=== PATIENT | female | born 1990 | race Caucasian/White ===

== ENCOUNTER 2025-06-13 10:08 | Outpatient (CLI) | payer OTHER, SELFPAY ==
[2025-06-13] VITALS (11 sets, daily range): BP systolic 107–132; BP diastolic 64–89; PULSE 89–128; RESP 16–17; TEMP 36.7–37.5; O2SAT 96–98; BMI 35.9
--- NOTE | 2025-06-13 10:20 | CT_ITS ---
PROCEDURE: CTA CHEST W/WO CONTRAST 06/13/2025 REASON FOR EXAM: ACUTE DYSPNEA, TACHYCARDIA, THIRD TRIMESTER PREGNA Patient is well shielded. TECHNIQUE: CTA CHEST W/WO CONTRAST Multiplanar Sagittal and Coronal images were obtained. 3D post processing was performed CONTRAST: Isovue 370 VOLUME: 100 mL One or more dose reduction techniques were used (e.g., Automated exposure control, adjustment of the mA and/or kV according to patient size, use of iterative reconstruction technique). RADIATION DOSE SUMMARY: CTDlvol: 22 mGy DLP: 436.13 mGycm COMPARISON: None FINDINGS: Hardware: None Lymph nodes: Small benign-appearing bilateral axillary lymph nodes. Heart: The heart is not enlarged. No coronary artery calcification is seen. Thoracic Aorta: No thoracic aortic aneurysm or dissection. Pulmonary Vessels: Tiny nonocclusive intraluminal filling defects seen in the proximal branch of the right interlobar artery as seen on coronal image number 156 and axial image number 97 Most Proximal Level of Embolus (if embolus present): Lungs and Airways: Lungs are clear. Pleura: No pleural effusion. Upper Abdomen: Diffuse fatty infiltration of the liver. Bones: Bone windows are unremarkable. CT/CTA Chest W/WO Contrast IMPRESSION: Single nonocclusive intraluminal filling defect is seen in the proximal branch of the right interlobar pulmonary artery as seen on axial image number 97 and coronal image number 156 Reading Location: [place] [id number]
--- NOTE | 2025-06-13 10:21 | EKG12_ITS ---
Test Reason : GENERAL Blood Pressure : */* mmHG Vent. Rate : 109 BPM Atrial Rate : 109 BPM P-R Int : 136 ms QRS Dur : 66 ms QT Int : 332 ms P-R-T Axes : 27 9 33 degrees QTcB Int : 447 ms Sinus tachycardia Otherwise normal ECG Confirmed by MORIAH COLLADO, SEBASTIAN ([id number]), web content editor ANGELA PEREZ ([id number]) on 06/16/2025 9:14:55 AM Referred By: Kerry Paniagua Confirmed By: SEBASTIAN MAJOR MD
[2025-06-13 10:40] LABS: Hematocrit 35.0 % (37-47); Hemoglobin 10.8 g/dL (12.0-15.0); Immature Granulocytes Count 0.050 X10^3/uL (0.0-0.0); Mean Corp Hgb Conc 30.9 g/dL (32-36); Mean Corpuscular Volume 76.9 fL (81-99); Mean Platelet Vol. 8.1 fl (6.2-12.0); NRBC Flagged by Analyzer 0 % (0-5); POSITIVE DIFFERENTIAL YES; POSITIVE MORPHOLOGY YES; Platelet Count 215 K/mm3 (150-450); RBC Distribution Width CV 28.7 % (11.6-14.6); RBC Distribution Width SD 73.7 fl (35.1-43.9); Red Blood Count 4.55 M/mm3 (4.2-5.4); White Blood Count 10.7 K/mm3 (4.4-11.0)
[2025-06-13 10:41] LABS: Differential Indicated SCAN CRITERIA MET
[2025-06-13 11:04] LABS: AST(SGOT) 13 U/L (<=31); Alanine Aminotransfer ALT/SGPT < 5 U/L (<=34); Albumin, Serum 3.5 g/dL (3.5-5.0); Alkaline Phosphatase 90 U/L (35-104); Anion Gap 14 (5-15); BUN 5 mg/dL (4-19); BUN/Creat Ratio 11.7 RATIO (10-20); Calcium,Total 9.3 mg/dL (7.6-11.0); Carbon Dioxide 18.3 mmol/L (21.0-32.0); Chloride 103 mmol/L (98-108); Estimated Creatinine Clearance 201.67 ml/min (50-250); Globulin 2.9 g/dL (2.2-4.2); Glucose 75 mg/dL (70-99); Potassium 3.6 mmol/L (3.3-5.1); Pro- Brain NATRIURETIC PEPTIDE < 36 pg/mL (<=450)
[2025-06-13 11:07] LABS: Troponin T High Sensitivity < 6 ng/L (<=14)
[2025-06-13 11:09] LABS: Anisocytosis 1+
--- NOTE | 2025-06-13 11:46 | CM.ED ---
Social work Reason for referral: no PCP Referral source: case find This SW identified patient's lack of PCP and need for resources. SW entered patient's room, introducing self and role at [facility]. Patient's , Mike, was bedside and patient gave permission to speak in front of guest. Patient confirmed lack of PCP, stating patient's previous 3 PCP's had all moved out of the area. This reportedly caused patient to become frustrated and patient has not obtained a new PCP as of this visit. Patient denied [place] resources, stating desire and intent to find a PCP in [place] where patient lives. Patient denied need for other resources at this time. Elke Elkins, TRADE SPECIALIST, NITRATE OPERATOR
--- NOTE | 2025-06-13 12:27 | ED.VIS.FEGU ---
HPI HPI - Female History of Present Illness Chief Complaint: Informant: patient and spouse/S.O. Pain Onset: Hours (2 hours prior to arrival abrupt onset of shortness of breath with chest discomfort.) Context: Sudden Onset Timing: Continuous Quality: Positive for - (Pleuritic) Location: - (Anterior chest) Current Severity: Mild Maximum Severity: Moderate Bleeding Issue: Negative for Vaginal bleeding, Passing clots or Passing tissue Associated Symptoms Associated Symptoms: Positive for Frequency; Negative for Dysuria, Urgency or Hematuria Test: Positive P: 1 Ab: 0 Narrative Narrative: Patient is a 35-year-old G2, P1 female who is 36 weeks gestation. She is followed through the [facility] department. She presents because abrupt onset shortness breath and chest pain that started 2 hours prior to arrival. I was asked see patient in triage. Patient is pale diaphoretic tachycardic. She is not hypotensive. She has no symptoms to suggest preeclampsia at this time. She denies headache, visual or auditory symptoms. Denies trouble speech or swallowing. She did have 1 episode of nausea and vomiting. She does have frequency otherwise negative review of systems. Patient had thrombectomy earlier this week by Dr. De Guzman for thrombosed hemorrhoid. Prior similar symptoms: No Recent Illness/Hospitalization: No PFSH PFS Medical History Polyhydramnios Constipation Anemia Hemorrhoids Home Medications ?Medication ?Instructions ?Recorded ?Last Taken ?Type famotidine 20 mg tablet 20 mg PO BID 06/09/25 Unknown History ferrous sulfate 325 mg (65 mg 325 mg PO Q OTHER DAY 06/09/25 Unknown History iron) tablet Allergy/AdvReac Type Severity Reaction Status Date / Time No Known Allergies Allergy Verified 06/13/25 10:12 Social History Smoking Status: Never smoker alcohol intake: never substance use type: does not use ROS ROS ED Constitutional Constitutional ED: Denies chills, fever(s), subjective or sweats Eyes Eyes: Denies blurry vision or change in vision ENT ENT ED: Denies ear pain or rhinorrhea Cardiovascular Cardiovascular: Reports chest pain and racing heartbeat; Denies orthopnea, palpitations or paroxysmal nocturnal dyspnea Respiratory/Chest Respiratory/Chest: Reports dyspnea; Denies cough, dyspnea on exertion, orthopnea or paroxysmal nocturnal dyspnea Gastrointestinal Gastrointestinal: Reports nausea and vomiting; Denies abdominal pain, diarrhea or melena Genitourinary Genitourinary ED: Denies dysuria, hematuria or urinary frequency Musculoskeletal Musculoskeletal: Denies arthralgias, myalgias or neck pain Integumentary Denies rash Neurologic Neurologic: Denies headache(s), paresthesias or weakness Psychiatric Psychiatric: Reports anxiety; Denies depression Hematologic/Lymphatic Hematologic/Lymphatic: Reports easy bleeding and easy bruising EXAM Physical Exam Const Vital Signs: 06/13/25 10:09 06/13/25 11:08 06/13/25 12:00 Temperature 98.0 F Temperature Source Oral Pulse Rate 128 H 102 H 89 Respiratory Rate 16 17 16 Blood Pressure 132/89 H 125/76 H Blood Pressure Mean 103 92 Pulse Ox 98 96 97 Oxygen Delivery Method Room Air Room Air Room Air Positive well nourished and well developed Constitutional Narrative: BMI is 36.0. Patient appears pale. She is anxious. She is tachycardic. Patient is slightly diaphoretic. I was asked to see patient in triage because of her vitals and concern for pulmonary embolus and if patient was to be seen in ED or L&D. General Appearance ED: well developed and pallor HEENT Reports moist mucous membranes HEENT Narrative: Head is atraumatic normocephalic. Ears normal. Nares patent Eyes PERRL and EOMs intact bilaterally General Eye ED: Negative for pale conjunctiva or scleral icterus Neck no lymphadenopathy, supple and no JVD Resp normal respiratory effort and clear to auscultation bilaterally Cardio regular rhythm, S1 normal heart sound, no murmurs and no JVD Rate: tachycardic GI GI Narrative: Fundal height is 2 cm inferior to the xiphoid process. There is no contractions. Extremity normal to inspection and full ROM General Extremety ED: Negative for edema General Extremity: Negative for edema Neuro oriented x3, CN's II-XII intact bilaterally and no sensory deficits noted Neuro Narrative: Patient has 2-3 beats of nonsustained clonus at the ankles. DTRs are 1-2+ and symmetric bicep, brachialis, patella and ankle. There is negative Babinski sign. Sensorium / Orientation: alert Motor Exam: strength 5/5 throughout Psych Mood & Affect: anxious Skin General Skin Exam: pallor MDM MDM MDM Narrative Medical decision making narrative: With abrupt onset of shortness of breath tachycardia third trimester need to evaluate for pulmonary embolus. Doubt pneumothorax. Doubt cardiac ischemia. Her symptoms are not consistent with preeclampsia since her blood pressure is slightly elevated. Will obtain CMP, CBC and CTA of the chest to evaluate for pulmonary embolus. Lab Data Attestation: I reviewed the patient's lab results. Lab results narrative: CBC is remarked for microcytic anemia. Comprehensive metabolic panel is unremarkable. Troponin is negative. BNP is normal. This was obtained to determine there was any evidence for of heart strain. Labs: Laboratory Results - last 24 hr 06/13/25 10:32 WBC 10.7 RBC 4.55 Hgb 10.8 L Hct 35.0 L MCV 76.9 L MCH 23.7 L MCHC 30.9 L RDW Std Deviation 73.7 H RDW Coeff of Shannon 28.7 H Plt Count 215 MPV 8.1 Immature Gran % (Auto) 0.500 Neut % (Auto) 92.0 H Lymph % (Auto) 5.1 L Eaton % (Auto) 2.1 Eos % (Auto) 0.1 Baso % (Auto) 0.2 Absolute Neuts (auto) 9.9 H Absolute Lymphs (auto) 0.55 L Nucleated RBC % 0 Differential Comment COMMENT Anisocytosis 1+ Sodium 136 Potassium 3.6 Chloride 103 Carbon Dioxide 18.3 L Anion Gap 14 BUN 5 Creatinine 0.46 L Estim Creat Clear Calc 201.67 Est GFR (MDRD) Non-Af 129 BUN/Creatinine Ratio 11.7 Glucose 75 Lactic Acid 1.4 Calcium 9.3 Total Bilirubin 0.43 AST 13 ALT < 5 Alkaline Phosphatase 90 Troponin T High Sens < 6 NT pro BNP II < 36 Total Protein 6.4 Albumin 3.5 Globulin 2.9 Albumin/Globulin Ratio 1.2 Radiography Diagnostic Testing: Clinical Impression(s) from Imaging Studies Chest CTA 06/13/25 10:20 IMPRESSION: Single nonocclusive intraluminal filling defect is seen in the proximal branch of the right interlobar pulmonary artery as seen on axial image number 97 and coronal image number 156 Reading Location: [facility]- After reviewing patient's CT results. The hat and cap opener was contacted, Dr. Kerry Paniagua. She requested admission to labor and delivery. I informed her that I ordered heparin however which she prefer Lovenox. She preferred Lovenox. This was discontinued and 1 mg/kg Lovenox was ordered. She will be admitted to labor and delivery. EKG Initial EKG: Attestation: I personally reviewed and interpreted this EKG as follows: Interpretation: Sinus Tachycardia (Sinus tachycardia rate of 109 otherwise normal. MI interval is under 36 ms QRS duration 6 6 ms. QT duration 2032 ms. [place] is normal.) Management Discussion w/another healthcare provider: Utilization Coordinator (Spoke with Dr. Kerry Paniagua on-call for [facility]. Patient to be admitted to labor and delivery.) Treatment and Re-Evaluation Narrative: Patient and were informed of results. They were informed that she will be admitted to labor and delivery for observation and treated with Lovenox. Discharge Plan Triage Chief Complaint: ED Provider: Gonzalez Barreto Dx/Rx/DC Orders Clinical Impression: Pulmonary embolus, Sinus tachycardia seen on court monitor, Third trimester , Microcytic anemia, S/P hemorrhoidectomy Prescriptions: No Action ferrous sulfate 325 mg (65 mg iron) tablet 325 mg PO Q OTHER DAY famotidine 20 mg tablet 20 mg PO BID Primary Care Provider: Care Physician,No Primary Referrals: Care Physician,No Primary [Primary Care Provider] - Print Language: Bulgarian Disposition Disposition: Acute Care Hospital [facility]
[2025-06-13 12:49] LABS: Prothrombin Time (Protime)PT. 14.0 SECONDS (11.7-14.9)
[2025-06-13 12:50] LABS: Partial Thromboplast Time 24.7 Seconds (24.1-36.2)
--- NOTE | 2025-06-13 12:51 | ED.RN ---
Report given to Kenneth LINTON in [facility].
[2025-06-13 13:15] LABS: Troponin T High Sens 2 HR < 6 ng/L (<=14)
[2025-06-13 14:24] LABS: Creatinine, Urine (random) 33.70 mg/dL (28.00-217.00); Protein, Urine (Random) 13.2 mg/dL (0.0-12.0); Protein:Creat Ratio 392 mg/g CRE (0-200)
--- NOTE | 2025-06-15 17:18 | OB.TRI.HP_ITS ---
HPI - General General Date of Admission: 06/13/25 Date of Service: 06/13/25 Chief Complaint: Acute PE HPI Narrative FEDERICA FIGUEROA, is a 35 F who presents to ED with Chest pain, Headache. Diagnosed with an acute PE and started on Lovenox. Sent to for monitoring. PRE E labs negative except for pr/cr of 390. Normal BPS. Pt sent home with 24 hour urine collection. Planned IOL at 39 for poly. Maternal Data Information Final CAROLYN: 07/07/25 Gestational age: 36+4 PFSH PFSH Medical History Polyhydramnios Constipation Anemia Hemorrhoids Home Medications ?Medication ?Instructions ?Recorded ?Last Taken ?Type famotidine 20 mg tablet 20 mg PO BID GERD 06/09/25 U nknown History albuterol 90 mcg/actuation aerosol 90 mcg inhalation P RN asthma 06/13/25 06/13/25 History inhaler Allergy/AdvReac Type Severity Reaction Status Date / Time No Known Allergies Allergy Verified 06/13/25 14:08 Social History Smoking Status: Never smoker alcohol intake: never substance use type: does not use History 2 Elective abortions Hx Para 1 Spontaneous abortions Hx # Term Pregnancies Ectopic pregnancies Hx # Pregnancies Multiple births # of living children NST FHR Rate Baby A Baseline: 125 Variability:: Moderate Accelerations:: 15 x 15 Decelerations:: None NST Reactive:: Yes Assessment & Plan (1) Pulmonary embolus: QUALIFIERS: Chronicity: acute Acute cor pulmonale presence: without acute cor pulmonale Pulmonary embolism type: other Qualified Code(s): I26.99 - Other pulmonary embolism without acute cor pulmonale (2) 36 weeks gestation of : (3) Proteinuria affecting in third trimester: PLAN: Plan Bringing 24 hour urine to office. Rx of Lovenox sent to pharmacy. Has appointment in office on 06/17/25
== END 2025-06-13 15:20 | disposition home or self-care (01) ==
LOC: ED 10:49 → WP 12:35 → WPOUT 13:20 → WP 13:20
PROVIDERS: Emergency Provider Emergency Medicine; Referring Provider Obstetrics & Gynecology; Visit Provider Obstetrics & Gynecology
DX: O88.213 Thromboembolism in pregnancy, third trimester (principal); I26.99 Other pulmonary embolism without acute cor pulmonale; O99.013 Anemia complicating pregnancy, third trimester; D50.9 Iron deficiency anemia, unspecified; O99.891 Other specified diseases and conditions complicating pregnancy; R00.0 Tachycardia, unspecified; O12.13 Gestational proteinuria, third trimester; Z3A.36 36 weeks gestation of pregnancy
CPT/HCPCS: 96372; 59025; 59050; 71275; 80053; 82570; 83605; 83880; 84156; 84484; 85025; 85610; 85730; 93005; 99221; 99285; Q9967; A4216; G0378

== ENCOUNTER → 2025-06-16 | Outpatient (CLI) | payer OTHER, SELFPAY | END | disposition home or self-care (01) | LOC: LABSPEC 09:21 | PROVIDERS: Referring Provider Obstetrics & Gynecology; Visit Provider Obstetrics & Gynecology | DX: O12.13 Gestational proteinuria, third trimester (principal); Z3A.00 Weeks of gestation of pregnancy not specified ==

== ENCOUNTER 2025-07-01 07:28 | Inpatient (IN) | payer OTHER, SELFPAY ==
[2025-06-13 13:50] VITALS: RESP 16; TEMP 37.5
[2025-07-01] VITALS (54 sets, daily range): BP systolic 114–151; BP diastolic 55–95; PULSE 67–113; RESP 16–20; TEMP 36.2–36.7; O2SAT 91–100; BMI 36.9
[2025-07-01] MEDS: Lactated Ringers 1,000 ML 50 ML IV (08:00)
[2025-07-01 08:22] LABS: Hematocrit 36.2 % (37-47); Hemoglobin 11.3 g/dL (12.0-15.0); Immature Granulocytes Count 0.090 X10^3/uL (0.0-0.0); Mean Corp Hgb Conc 31.2 g/dL (32-36); Mean Corpuscular Volume 79.0 fL (81-99); Mean Platelet Vol. 8.3 fl (6.2-12.0); NRBC Flagged by Analyzer 0 % (0-5); POSITIVE MORPHOLOGY YES; Platelet Count 261 K/mm3 (150-450); RBC Distribution Width CV 25.2 % (11.6-14.6); RBC Distribution Width SD 70.1 fl (35.1-43.9); Red Blood Count 4.58 M/mm3 (4.2-5.4); White Blood Count 9.7 K/mm3 (4.4-11.0)
[2025-07-01 08:23] LABS: Differential Indicated SCAN CRITERIA MET
[2025-07-01] MEDS: Oxytocin 15 Units/NS 250ml 15 UNITS/250 ML IV.SOLN 2 UNITS IV (08:28)
[2025-07-01] MEDS: Penicillin G Pot 5,000,000 UNITS in 0.9% Normal Saline (100mL MB+) 100 ML 150 UNITS IV (09:08)
[2025-07-01 09:14] LABS: Anisocytosis 2+
[2025-07-01 09:23] LABS: Syphilis Antibodies Nonreactive (Nonreactive)
[2025-07-01] MEDS: 0.9% Normal Saline Single 100 ML IV.SOLN. INTRA-UTER (10:26)
[2025-07-01] MEDS: Penicillin G 3,000,000 Units 50 ML 100 UNITS IV ×3 (13:09→21:11)
[2025-07-01] MEDS: Lactated Ringers 1,000 ML 999 ML IV (13:39)
[2025-07-01] MEDS: fentaNYL-bupivacaine (epidural) 100 ML BAG EPIDURAL ×2 (14:18→18:59)
[2025-07-01] MEDS: LACTATED RINGERS 500 ML 999 ML IV ×2 (16:47→21:57)
[2025-07-01] MEDS: Lactated Ringers 1,000 ML 200 ML IV (17:15)
--- NOTE | 2025-07-01 18:59 | HP.PCM.OB_ITS ---
HPI - General General Date of Admission: 07/01/25 Date of Service: 07/01/25 Chief Complaint: induction HPI Narrative FEDERICA FIGUEROA, is a 35 F who presents 2 para 1 for induction of labor due to large for gestational age fetus. She denies any gross vaginal bleeding or leaking of fluid upon admission she has had some irregular contractions. Her has been complicated to date by LGA fetus, maternal obesity, anemia, polyhydramnios. She was dx w/ a PE on 06/13/25 and is on lovenox for this. She held her dose last night in anticipation of induction. Maternal Data Information Final CAROLYN: 07/07/25 Gestational age: 39 1/7 [facility] Medical History (Updated 07/01/25 @ 19:[address] Keyla Ravi MD) Pulmonary embolism affecting in third trimester Infertility Asthma Depression Anxiety Headache Polyhydramnios Constipation Anemia Hemorrhoids Home Medications ?Medication ?Instructions ?Recorded ?Last Taken ?Type famotidine 20 mg tablet 20 mg PO BID GERD 06/09/25 0 06/30/25 22:30 History enoxaparin 100 mg subcut BID PE 5 06/29/25 00:00 History Allergy/AdvReac Type Severity Reaction Status Date / Time No Known Allergies Allergy Verified 07/01/25 07:47 Social History Smoking Status: Never smoker alcohol intake: never substance use type: does not use History 2 Elective abortions Hx Para 1 Spontaneous abortions Hx # Term Pregnancies Ectopic pregnancies Hx # Pregnancies Multiple births # of living children ROS Constitutional Constitutional: Denies fatigue, fever(s) or malaise Eyes Eyes: Denies change in vision ENT HEENT: Denies dizziness or headache(s) Cardiovascular Cardiovascular: Denies chest pain, dyspnea or lightheadedness Respiratory/Chest Respiratory/Chest: Denies cough or dyspnea Gastrointestinal Gastrointestinal: Denies change in bowel habits Genitourinary Genitourinary: Denies burning urination or genital lesions Integumentary Integumentary: Denies rash Neurologic Neurologic: Denies confusion, dizziness, headache(s), numbness or weakness Vital Signs Vital Signs Vital Signs: 07/01/25 07:41 07/01/25 07:41 07/01/25 07:42 Temperature Temperature Source Pulse Rate 113 H Respiratory Rate Blood Pressure 117/76 BP Systolic 117 BP Diastolic 76 Pulse Ox 95 07/01/25 07:42 07/01/25 07:42 07/01/25 07:42 Temperature Temperature Source Temporal Pulse Rate 103 H Respiratory Rate 16 Blood Pressure BP Systolic BP Diastolic Pulse Ox 07/01/25 07:42 07/01/25 07:42 07/01/25 09:46 Temperature 97.4 F L Temperature Source Pulse Rate Respiratory Rate Blood Pressure 131/87 H BP Systolic 131 BP Diastolic 87 Pulse Ox 95 07/01/25 09:46 07/01/25 09:46 07/01/25 09:47 Temperature Temperature Source Temporal Pulse Rate 72 Respiratory Rate Blood Pressure BP Systolic BP Diastolic Pulse Ox 96 07/01/25 09:47 07/01/25 09:47 07/01/25 09:47 Temperature 97.2 F L Temperature Source Pulse Rate Respiratory Rate 16 Blood Pressure BP Systolic BP Diastolic Pulse Ox 96 07/01/25 10:47 07/01/25 10:47 07/01/25 10:47 Temperature Temperature Source Pulse Rate 71 Respiratory Rate Blood Pressure 128/81 H BP Systolic 128 BP Diastolic 81 Pulse Ox 93 07/01/25 10:48 07/01/25 10:48 07/01/25 10:48 Temperature Temperature Source Temporal Pulse Rate Respiratory Rate 18 Blood Pressure BP Systolic BP Diastolic Pulse Ox 95 07/01/25 10:48 07/01/25 11:53 07/01/25 11:53 Temperature 97.3 F L Temperature Source Pulse Rate 77 Respiratory Rate Blood Pressure 142/86 H BP Systolic 142 BP Diastolic 86 Pulse Ox 07/01/25 11:53 07/01/25 11:53 07/01/25 11:53 Temperature Temperature Source Temporal Pulse Rate Respiratory Rate 16 Blood Pressure BP Systolic BP Diastolic Pulse Ox 96 07/01/25 11:53 07/01/25 14:03 07/01/25 14:03 Temperature 97.1 F L Temperature Source Pulse Rate 94 Respiratory Rate Blood Pressure BP Systolic BP Diastolic Pulse Ox 97 07/01/25 14:04 07/01/25 14:04 07/01/25 14:05 Temperature Temperature Source Pulse Rate 87 Respiratory Rate Blood Pressure 135/95 H BP Systolic 135 BP Diastolic 95 Pulse Ox 91 07/01/25 14:05 07/01/25 14:05 07/01/25 14:08 Temperature Temperature Source Pulse Rate 77 99 Respiratory Rate 18 Blood Pressure BP Systolic BP Diastolic Pulse Ox 07/01/25 14:08 07/01/25 14:10 07/01/25 14:11 Temperature Temperature Source Pulse Rate Respiratory Rate 20 H Blood Pressure 151/70 H BP Systolic 151 BP Diastolic 70 Pulse Ox 100 07/01/25 14:11 07/01/25 14:13 07/01/25 14:13 Temperature Temperature Source Pulse Rate 70 68 Respiratory Rate Blood Pressure BP Systolic BP Diastolic Pulse Ox 100 07/01/25 14:15 07/01/25 14:15 07/01/25 14:15 Temperature Temperature Source Pulse Rate 86 Respiratory Rate 18 Blood Pressure 141/63 H BP Systolic 141 BP Diastolic 63 Pulse Ox 07/01/25 14:18 07/01/25 14:18 07/01/25 14:18 Temperature Temperature Source Pulse Rate 98 85 Respiratory Rate Blood Pressure BP Systolic BP Diastolic Pulse Ox 94 07/01/25 14:18 07/01/25 14:20 07/01/25 14:20 Temperature Temperature Source Pulse Rate 96 Respiratory Rate Blood Pressure 144/90 H BP Systolic 144 BP Diastolic 90 Pulse Ox 91 07/01/25 14:20 07/01/25 14:23 07/01/25 14:23 Temperature Temperature Source Pulse Rate 104 H Respiratory Rate 18 Blood Pressure BP Systolic BP Diastolic Pulse Ox 95 07/01/25 14:24 07/01/25 14:24 07/01/25 14:25 Temperature Temperature Source Pulse Rate 101 H Respiratory Rate Blood Pressure 122/61 H BP Systolic 122 BP Diastolic 61 Pulse Ox 94 07/01/25 14:25 07/01/25 14:25 07/01/25 14:28 Temperature Temperature Source Pulse Rate 91 93 Respiratory Rate 16 Blood Pressure BP Systolic BP Diastolic Pulse Ox 07/01/25 14:28 07/01/25 14:28 07/01/25 14:28 Temperature Temperature Source Pulse Rate Respiratory Rate 18 Blood Pressure BP Systolic BP Diastolic Pulse Ox 95 95 07/01/25 14:28 07/01/25 14:30 07/01/25 14:30 Temperature 97.5 F L Temperature Source Pulse Rate 90 Respiratory Rate Blood Pressure BP Systolic BP Diastolic Pulse Ox 94 07/01/25 14:31 07/01/25 14:31 07/01/25 14:31 Temperature Temperature Source Pulse Rate 89 Respiratory Rate 16 Blood Pressure 118/58 L BP Systolic 118 BP Diastolic 58 Pulse Ox 07/01/25 14:33 07/01/25 14:33 07/01/25 14:36 Temperature Temperature Source Pulse Rate 84 Respiratory Rate Blood Pressure 114/66 BP Systolic 114 BP Diastolic 66 Pulse Ox 94 07/01/25 14:36 07/01/25 14:36 07/01/25 14:38 Temperature Temperature Source Pulse Rate 85 81 Respiratory Rate 16 Blood Pressure BP Systolic BP Diastolic Pulse Ox 07/01/25 14:38 07/01/25 14:39 07/01/25 14:39 Temperature Temperature Source Pulse Rate 82 Respiratory Rate Blood Pressure BP Systolic BP Diastolic Pulse Ox 94 94 07/01/25 14:40 07/01/25 14:41 07/01/25 14:41 Temperature Temperature Source Pulse Rate 84 Respiratory Rate 16 Blood Pressure 122/73 H BP Systolic 122 BP Diastolic 73 Pulse Ox 07/01/25 14:51 07/01/25 14:51 07/01/25 14:56 Temperature Temperature Source Pulse Rate 86 81 Respiratory Rate Blood Pressure BP Systolic BP Diastolic Pulse Ox 95 07/01/25 14:56 07/01/25 14:59 07/01/25 14:59 Temperature Temperature Source Pulse Rate 85 Respiratory Rate Blood Pressure BP Systolic BP Diastolic Pulse Ox 96 93 07/01/25 15:01 07/01/25 15:01 07/01/25 15:04 Temperature Temperature Source Pulse Rate 83 80 Respiratory Rate Blood Pressure BP Systolic BP Diastolic Pulse Ox 96 07/01/25 15:04 07/01/25 15:06 07/01/25 15:06 Temperature Temperature Source Pulse Rate 83 Respiratory Rate Blood Pressure BP Systolic BP Diastolic Pulse Ox 94 94 07/01/25 15:10 07/01/25 15:10 07/01/25 15:11 Temperature Temperature Source Pulse Rate 78 75 Respiratory Rate Blood Pressure BP Systolic BP Diastolic Pulse Ox 94 07/01/25 15:11 07/01/25 15:21 07/01/25 15:21 Temperature Temperature Source Temporal Pulse Rate 78 Respiratory Rate Blood Pressure BP Systolic BP Diastolic Pulse Ox 94 07/01/25 15:21 07/01/25 15:21 07/01/25 15:21 Temperature 97.5 F L Temperature Source Pulse Rate Respiratory Rate 18 Blood Pressure BP Systolic BP Diastolic Pulse Ox 97 07/01/25 15:22 07/01/25 15:22 07/01/25 15:26 Temperature Temperature Source Pulse Rate 75 69 Respiratory Rate Blood Pressure 122/68 H BP Systolic 122 BP Diastolic 68 Pulse Ox 07/01/25 15:26 07/01/25 15:31 07/01/25 15:31 Temperature Temperature Source Pulse Rate 84 Respiratory Rate Blood Pressure 128/68 H BP Systolic 128 BP Diastolic 68 Pulse Ox 99 07/01/25 15:31 07/01/25 15:36 07/01/25 15:36 Temperature Temperature Source Pulse Rate 77 Respiratory Rate Blood Pressure BP Systolic BP Diastolic Pulse Ox 98 96 07/01/25 15:41 07/01/25 15:41 07/01/25 15:46 Temperature Temperature Source Pulse Rate 82 76 Respiratory Rate Blood Pressure BP Systolic BP Diastolic Pulse Ox 97 07/01/25 15:46 07/01/25 15:51 07/01/25 15:51 Temperature Temperature Source Pulse Rate 67 Respiratory Rate Blood Pressure BP Systolic BP Diastolic Pulse Ox 96 95 07/01/25 17:08 07/01/25 17:08 07/01/25 17:08 Temperature Temperature Source Temporal Pulse Rate 84 Respiratory Rate Blood Pressure 114/58 L BP Systolic 114 BP Diastolic 58 Pulse Ox 07/01/25 17:08 07/01/25 17:08 07/01/25 17:08 Temperature 97.3 F L Temperature Source Pulse Rate Respiratory Rate 16 Blood Pressure BP Systolic BP Diastolic Pulse Ox 99 Weight Weight: 91.626 kg Body Mass Index (BMI) 36.9 Physical Exam Const alert and no apparent distress General Appearance: cooperative HEENT normocephalic Resp normal respiratory effort Cardio regular rate GI soft to palpation GI Narrative: gravid, nontender, appropriate for gestational age Extremity no calf tenderness General Extremity: edema Skin no wounds Rashes: No rashes noted Psych activity/motor behavior normal Labs Labs Labs: Blood Type B POSITIVE Antibody Screen NEGATIVE Hct 36.2 % (37-47) L Hgb 11.3 g/dL (12.0-15.0) L Syphilis Total Ab Nonreactive (Nonreactive) Assessment & Plan (1) 39 weeks gestation of : (2) Supervision of high risk in third trimester: COMMENT: Risk-benefit and alternatives to induction of labor discussed with patient her questions were answered to her satisfaction consent was signed and she desires to proceed. Will proceed with [place] with Pitocin and artificial rupture membranes as needed. May have routine pain control measures as needed. Estimated weight is approximately 4000 g. Pelvis clinically adequate to expect vaginal delivery. (3) LGA (large for gestational age) fetus affecting management of mother: QUALIFIERS: Fetus number: single or unspecified fetus Trimester: third trimester Qualified Code(s): O36.63X0 - Maternal care for excessive growth, third trimester, not applicable or unspecified (4) Polyhydramnios affecting in third trimester: (5) Maternal obesity affecting , antepartum: (6) Obesity, Class II, BMI 35-39.9, isolated: (7) Pulmonary embolus: QUALIFIERS: Pulmonary embolism type: other Chronicity: acute Acute cor pulmonale presence: without acute cor pulmonale Qualified Code(s): I26.99 - Other pulmonary embolism without acute cor pulmonale COMMENT: restart treatment after delivery. SAM briones on (8) Third trimester : (9) Anemia: COMMENT: has been on fe
--- NOTE | 2025-07-01 22:50 | EX.PCM.OBVAG ---
Assessment & Plan (1) Obesity, Class II, BMI 35-39.9, isolated: (2) (spontaneous vaginal delivery): (3) Single live : (4) Maternal obesity affecting , antepartum: (5) Supervision of high risk in third trimester: COMMENT: Risk-benefit and alternatives to induction of labor discussed with patient her questions were answered to her satisfaction consent was signed and she desires to proceed. Will proceed with [place] with Pitocin and artificial rupture membranes as needed. May have routine pain control measures as needed. Estimated weight is approximately 4000 g. Pelvis clinically adequate to expect vaginal delivery. (6) 39 weeks gestation of : Maternal Data Information Final CAROLYN: 07/07/25 Gestational age: 39 1/7 Vaginal Delivery Maternal Presentation Maternal Presentation: Medically Indicated Induction Type of Induction: Pitocin, [place] Bulb and Amniotomy Vaginal Delivery Information Procedure Performed: Spontaneous Vaginal Delivery Surgeon/Practitioner: Keyla Ravi Date of Procedure: 07/01/25 Pre-Procedure Diagnosis: labor Post-Procedure Diagnosis: same Type of anesthesia: Epidural Special Medications: none Estimated Blood Loss: 300 Time of Delivery: 22:28 Findings Description of procedure: A vigorous female infant was delivered THEA over a second-degree perineal laceration. A tight nuchal cord x 3 was reduced. The remainder the infant was delivered with maternal pushing and gentle traction only in less than 15 seconds. The Pitocin infusion was initiated for active management of the third stage. The cord was clamped and cut after approximately 15 seconds so the infant could be handed off to the warmer for evaluation. The infant was attended to by the waiting nursing staff. The placenta was delivered spontaneously and intact. The cervix and vagina were intact. The second-degree perineal laceration was repaired with 3-0 Vicryl suture in a running standard fashion. Sponge and needle counts were correct. A vaginal sweep was completed by me. Procedure findings: Vigorous female infant Presentation: THEA Amniotic Membrane Rupture Type: Artificial Amniotic Fluid Description: Clear Placental Delivery Description: Spontaneous Placenta Disposition: [facility] Specimen collected: Yes Description of specimen(s) removed: Placenta Cord Vessel Description: 3 Vessels Cord Entanglement: Other (around neck x 3 tight) Nuchal Cord Compression: With compression Cord Gases: ABG and VBG A Gender: Female (Dali) (1 minute): 8 (5 minute): 9 Delayed Cord Clamping: No Marketing Communications Coordinator directory operator: No Post Vaginal Deli Medications given after delivery: IV Pitocin Episiotomy Description: None Laceration: None Complication Complications: No
[2025-07-01] MEDS: Oxytocin 15 Units/NS 250ml 15 UNITS/250 ML IV.SOLN 83 UNITS IV (23:10)
[2025-07-02] VITALS (12 sets, daily range): BP systolic 114–144; BP diastolic 59–84; PULSE 75–102; RESP 16; TEMP 36.4–36.8; O2SAT 93–99
--- NOTE | 2025-07-02 03:59 | NURSING ---
epidural catheter taken out at 0340, blue tip intact
[2025-07-02 05:42] LABS: Hematocrit 31.9 % (37-47); Hemoglobin 10.2 g/dL (12.0-15.0); Immature Granulocytes Count 0.140 X10^3/uL (0.0-0.0); Mean Corp Hgb Conc 32.0 g/dL (32-36); Mean Corpuscular Volume 78.8 fL (81-99); Mean Platelet Vol. 8.5 fl (6.2-12.0); NRBC Flagged by Analyzer 0 % (0-5); POSITIVE MORPHOLOGY YES; Platelet Count 230 K/mm3 (150-450); RBC Distribution Width CV 25.0 % (11.6-14.6); RBC Distribution Width SD 69.0 fl (35.1-43.9); Red Blood Count 4.05 M/mm3 (4.2-5.4); White Blood Count 17.0 K/mm3 (4.4-11.0)
[2025-07-02 05:52] LABS: Differential Indicated SCAN CRITERIA MET
[2025-07-02 06:29] LABS: Anisocytosis 1+; Polychromasia RARE
[2025-07-02 06:30] LABS: Differential Comment SCANNED
[2025-07-02 08:16] LABS: Pathology Specimen OB SEE PATHOLOGY REPORT
--- NOTE | 2025-07-02 08:16 | PCM.PROGNOTE ---
Subjective Subjective patient seen at bedside, doing well. Patient reports good pain control. lochia mild. Objective Data Objective Data Vital Signs: Vital Signs Temp Pulse Resp BP Pulse Ox O2 Del Method 97.6 F L 83 16 115/63 99 Room Air 07/02/25 08:15 07/02/25 08:15 07/02/25 08:15 07/02/25 08:15 07/02/25 03:47 07/02/25 03:47 Oxygen Delivery Method Room Air Weight: 91.626 kg Body Mass Index (BMI) 36.9 Intake & Output: Intake and Output for Last 24 Hours 06/30/25 07/01/25 07/02/25 23:59 23:59 23:59 Intake Total 4146.16 / 4146.16 250 / 250 Output Total 1575 / 1575 600 / 600 Balance 2571.16 / 2571.16 -350 / -350 Lab / Micro Data 07/02/25 05:35 Labs: Laboratory Results - last 24 hr 07/01/25 08:00: WBC 9.7, RBC 4.58, Hgb 11.3 L, Hct 36.2 L, MCV 79.0 L, MCH 24.7 L, MCHC 31.2 L, RDW Std Deviation 70.1 H, RDW Coeff of [place] 25.2 H, Plt Count 261, MPV 8.3, Immature Gran % (Auto) 0.900, Neut % (Auto) 75.5 H, Lymph % (Auto) 16.8 L, [place] % (Auto) 5.5, Eos % (Auto) 1.0, Baso % (Auto) 0.3, Absolute Neuts (auto) 7.3, Absolute Lymphs (auto) 1.62, Nucleated RBC % 0, Anisocytosis 2+, Syphilis Total Ab Nonreactive, Blood Type B POSITIVE, Antibody Screen NEGATIVE 07/02/25 05:35: WBC 17.0 H, RBC 4.05 L, Hgb 10.2 L, Hct 31.9 L, MCV 78.8 L, MCH 25.2 L, MCHC 32.0, RDW Std Deviation 69.0 H, RDW Coeff of [place] 25.0 H, Plt Count 230, MPV 8.5, Immature Gran % (Auto) 0.800, Neut % (Auto) 84.5 H, Lymph % (Auto) 9.0 L, [place] % (Auto) 5.2, Eos % (Auto) 0.3, Baso % (Auto) 0.2, Absolute Neuts (auto) 14.4 H, Absolute Lymphs (auto) 1.54, Nucleated RBC % 0, Differential Comment SCANNED, Polychromasia RARE, Anisocytosis 1+, Ovalocytes RARE Physical Exam Narrative Abd: fundus firm. Const alert and oriented x3 General Appearance: cooperative HEENT normocephalic Neck General: normal visual inspection GI soft to palpation and non-distended GI Narrative: Fundus firm Extremity normal to inspection and no calf tenderness Skin no rashes or lesions noted Neuro oriented x3 and CN's II-XII intact bilaterally Psych mental status grossly normal Assessment & Plan Assessment/Plan (1) Single live : (2) (spontaneous vaginal delivery): (3) Obesity, Class II, BMI 35-39.9, isolated: (4) Pulmonary embolus: QUALIFIERS: Pulmonary embolism type: other Chronicity: acute Acute cor pulmonale presence: without acute cor pulmonale Qualified Code(s): I26.99 - Other pulmonary embolism without acute cor pulmonale (5) Anemia: PLAN: Plan PPD# 1 , Doing well Routine care pain mgmt ambulation Lovenox to restart
[2025-07-02 08:18] LABS: Pathology Sent to OSU SEE PATHOLOGY REPORT
[2025-07-03 02:12] VITALS: BP 123/58; PULSE 82; RESP 14; TEMP 36.4; O2SAT 95
[2025-07-03 08:15] VITALS: BP 120/75; PULSE 71; RESP 16; TEMP 36.2; O2SAT 95
--- NOTE | 2025-07-03 09:06 | PCM.DC.SUM ---
Providers Date of Admission: 07/01/25 Primary Care Physician: No Primary Care Phys Reason For Visit: VAG Diagnosis Discharge Diagnosis (1) Single live : Status: Acute Code(s): Z37.0 - Single live (2) (spontaneous vaginal delivery): Status: Acute Code(s): O80 - Encounter for full-term uncomplicated delivery (3) Obesity, Class II, BMI 35-39.9, isolated: Status: Acute Code(s): E66.812 - Obesity, class 2 (4) Pulmonary embolus: Status: Acute Code(s): I26.99 - Other pulmonary embolism without acute cor pulmonale Qualifiers: Pulmonary embolism type: other Chronicity: acute Acute cor pulmonale presence: without acute cor pulmonale Qualified Code(s): I26.99 - Other pulmonary embolism without acute cor pulmonale (5) Anemia: Status: Acute Code(s): D64.9 - Anemia, unspecified Plan PPD 2 support Continue Lovenox 100 mg SQ D/C home with follow up in office next week Medications at Discharge Home Medications famotidine 20 mg tablet 20 mg PO BID GERD 06/09/25 enoxaparin 100 mg subcut BID PE 07/01/25 acetaminophen 500 mg tablet 1,000 mg (2 x 500 mg) PO Q6H PRN PRN Pain 1-10 Or Fever #0 tabs 07/03/25 Hospital Course Operations None Procedures None Summary of Care Provided Minutes Spent on Discharge: 15 Hospital Course: Patient had vaginal delivery. Hospital course was uneventful. Physical Exam Narrative Patient seen at bedside. Denies pain. Ambulating and voiding without difficulty. Lochia decreased. Desires discharge home today. Const alert and oriented x3 General Appearance: Negative for in distress HEENT normocephalic Eyes General Eye: normal appearance of both eyes Neck General: normal visual inspection Chest Chest: symmetrical chest wall rise Resp normal respiratory effort and normal air movement Effort and Inspection: symmetric chest movement; Negative for tachypneic Auscultation: clear to auscultation bilaterally Cardio regular rate and regular rhythm Peripheral Pulses: pulses 2+ throughout GI normal to inspection, nondistended, normoactive bowel sounds Narrative: Ice to perineum OB / External & Speculum: vaginal bleeding and other Lochia decreasing Uterus Palpation: uterus fundus firm (Below U) Extremity normal to inspection, full ROM and normal capillary refill Skin no rashes or lesions noted Neuro oriented x3, CN's II-XII intact bilaterally and gait normal Psych mental status grossly normal, thought process normal and activity/motor behavior normal Weight / BMI Weight Weight: 202 lb Body Mass Index (BMI) 36.9 ABG / Lab / Microbiology Data 07/02/25 05:35 D/C Instructions Discharge Activity: Return to Normal Activity, No Restrictions, May Drive, May Shower and May Take a Tub Bath (Warm water only. No bath salts, soaps, bubbles) May resume sexual activity in: 6-8 weeks Weight Bearing Status: Weight bearing as tolerated Call your doctor if you observe: Fever of 101 or Higher, Inability to urinate, Using more than 1 pad per hour, Shortness of breath, Dizziness, Chest pain, Calf discomfort and Uncontrolled pain DC O2, CPAP, BIPAP Needs Home O2 Discharge instructions: No Please Follow Up With: [facility] Karime GALLARDO When: 2 weeks in office or virtual Meaningful Use Info Meaningful Use Meaningful Use Diagnoses (Choose all that apply): None applicable Discharge Plan Admission Admit Date/Time: 07/01/25 07:28 Primary Reason for Your Visit: Labor and Delivery Attending Provider: Keyla Ravi Primary Care Provider: Care PhysicianRebeca Primary Discharge Orders/Prescriptions Prescriptions: New acetaminophen 500 mg Tablet 1,000 mg PO Q6H PRN PRN (Reason: Pain 1-10 Or Fever) Qty: 0 0RF Continued famotidine 20 mg tablet 20 mg PO BID enoxaparin [Lovenox] 100 mg subcut BID Referrals / Follow Up: Care Physician,Rebeca Primary [Primary Care Provider] - Disposition Disposition (needs filled in before D/C Order can be placed): Home, Self Care
--- NOTE | 2025-07-07 11:45 | CASEMGMT ---
Social Work Assessment Labor and Delivery Unit Patient Address: [address] [place] [address] [place] [address] Phone number: [phone] Date of Referral: 07/02/25 Time of Referral:? 0900 Referred By: Dr. aRvi Date of Intervention: ??07/02/25 Time of Intervention:? 1020 Reason for Referral:? anxiety, depression Sw completed chart review and acknowledge social work consult due to maternal mental health history. Sw presented to bedside and introduced self to mother of baby (NIKUNJ- Soco) and father of baby (FOSoren- Marlon). Sw explained sw involvement and completed psychosocial assessment. History obtained from: medical records, MOB and FOB Household composition: Currently residing in the family home is YI CALVIN, their 5 year old daughter: Elliott, and baby when ready for discharge. Parents deny any problems or concerns with housing, stating that it is safe and secure. Patient's parent/guardian status:? ?NIKUNJ states that parents have been together for 13 years and got in 2016. They met while attending college together. No concerns reported of domestic violence or intimate partner violence. Medical History: NIKUNJ is 35 year old female who is 2, para 1- now 2 following labor and delivery of . NIKUNJ received routine care during with [facility] beginning in first trimester. NIKUNJ presented to hospital for induction of labor and delivered baby via spontaneous vaginal delivery at 39 weeks gestation on 07/01/25. Baby girl, named Dali Lion, was born weighing 7lb 4oz with apgars of 8 and 9 at one and five minutes of life, respectfully. NIKUNJ is breast feeding and states that baby will be followed by Dr. James for pediatrics. ? Educational Status:?NIKUNJ graduated from college with her Bachelor's and YI also went to college. No concerns with reading, learning or comprehension. Financial Status: Both parents are gainfully employed outside of the home. 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 Infant Supplies:??All necessary baby supplies obtained, including: car seat, safe sleep space, clothes, diapers and wipes. Childcare/Caregiver(s):?NIKUNJ reports that she will be the primary caregiver and when she returns to work following her maternity leave they have a in home baby sitter lined up. Transportation:??Both parents have their drivers license and reliable means of transportation, no barriers. Programs/Agencies Involved: ??MOB is connected to mental health counseling at [facility] and has future appointments scheduled. ? Children Services/Legal Issues: No history of children services involvement, no issues or concerns warranting referral to be made at this time. ??? Behavioral Health Issues: ??Mental Health History:?FOSoren denies mental health history. MOB states that she has history of depression and anxiety. MOB denies experiencing depression or anxiety following the delivery of her first baby. ?? Substance Use History: Parents deny substance use history prior to and during . ?? Family History:?No family history of addiction or significant mental health history. ? Drug Screens: ??No drug screens observed while completing chart review. Family/Social Stressors:? Parents deny any issues, concerns or stressors at this time. Support Systems: NIKUNJ states that FOSoren, paternal grandparents and her friends are her biggest supports at this time. Depression/Shaken Baby/Safe Sleeping:? Andrea educated parents on signs and symptoms of baby blues and depression and anxiety to be mindful of going into this period. NIKUNJ states that she has heard those terms before, and given her social work background she is knowledgeable about what to be mindful of and if she were to struggle she knows the importance of talking about it. FOSoren states that if MOB were to struggle with her mental health he would be able to recognize that and would know how to help and support her. Andrea educated parents on shaken baby prevention and ABCs of safe sleep. ASSESSMENT:? MOB and baby admitted following labor and delivery. MOB with mental health history positive for anxiety and depression. NIKUNJ reports that she has felt good mentally during her and thus far following delivery of . NIKUNJ reports that she has a good support system and is thankful that baby is here and is healthy. MOB and FOB both talkative and engaging throughout completion of assessment. MOB observed laying comfortably in bed and holding baby lovingly and attentively. MOB reports to having a machuca/ connection with baby and excited to be home with both of her girls. Parents were open about MOB's mental health history and state that they feel open to communication with each other and open to communicating with MOB's mental health counselor. Parents have all necessary baby items and natural supports in place. PLAN:? No other services requested or indicated. MOB and baby to be discharged when medically ready. Parents were provided literature regarding: signs and symptoms of baby blues and mood and anxiety disorders, Help Me Grow, shaken baby prevention, ABCs of safe sleep and a list of county resources that are available for them should any needs present themselves. Darion Valdez, FUNDRAISING OFFICER, DIRECTOR OF INSTITUTIONAL RESEARCH
== END 2025-07-03 11:50 | disposition home or self-care (01) | DRG 805 ==
PROVIDERS: Admitting Provider Obstetrics & Gynecology; Referring Provider Obstetrics & Gynecology; Visit Provider Obstetrics & Gynecology
DX: O40.3XX0 Polyhydramnios, third trimester, not applicable or unspecified (principal); Z37.0 Single live birth; O88.22 Thromboembolism in childbirth; I26.99 Other pulmonary embolism without acute cor pulmonale; O99.214 Obesity complicating childbirth; O69.1XX0 Labor and delivery complicated by cord around neck, with compression, not applicable or unspecified; O99.02 Anemia complicating childbirth; O70.1 Second degree perineal laceration during delivery; Z79.01 Long term (current) use of anticoagulants; Z3A.39 39 weeks gestation of pregnancy
CPT/HCPCS: 59025; 59050; 85025; 86780; 86850; 86900; 86901; 99221; G0378; J2405

== ENCOUNTER 2025-10-14 19:24 | Emergency (ER) | payer OTHER, SELFPAY ==
[2025-10-14] VITALS (7 sets, daily range): BP systolic 121–139; BP diastolic 81–94; PULSE 64–73; RESP 13–18; TEMP 36.6–36.9; O2SAT 96–100; BMI 36.3
--- NOTE | 2025-10-14 21:03 | EX.ED.DYSGE1 ---
HPI History of Present Illness Chief Complaint: Shortness of Breath PFSH PFSH Medical History Encounter for breast feeding counseling Single live (spontaneous vaginal delivery) Obesity, Class II, BMI 35-39.9, isolated Maternal obesity affecting , antepartum Pulmonary embolus Pulmonary embolism affecting in third trimester Infertility Asthma Depression Anxiety Headache Polyhydramnios Constipation Anemia Hemorrhoids Home Medications ?Medication ?Instructions ?Recorded ?Last Taken ?Type famotidine 20 mg tablet 20 mg PO BID GERD 06/09/25 06/30/25 22:30 History enoxaparin 100 mg subcut BID PE 07/01/25 06/29/25 00:00 History acetaminophen 500 mg tablet 1,000 mg (2 x 500 mg) PO Q6H PRN 07/03/25 Unknown Rx PRN Pain 1-10 Or Fever #0 tabs enoxaparin 100 mg/mL subcutaneous 100 mg subcut Q12H 30 days #60 mL 10/14/25 Unknown Rx syringe (Lovenox) Allergy/AdvReac Type Severity Reaction Status Date / Time No Known Allergies Allergy Verified 10/14/25 19:27 Social History Smoking Status: Never smoker alcohol intake: never substance use type: does not use EXAM Physical Exam Const Vital Signs: 10/14/25 19:25 10/14/25 21:01 10/14/25 21:07 Temperature 97.9 F 98.3 F Temperature Source Oral Oral Pulse Rate 66 73 Respiratory Rate 18 13 Respiratory Effort Normal Short of Breath Respiratory Depth Normal Respiratory Pattern Normal Blood Pressure 139/86 H 126/90 H Blood Pressure Mean 103 102 Pulse Ox 99 96 Oxygen Delivery Method Room Air Room Air Room Air 10/14/25 21:12 10/14/25 21:51 10/14/25 22:17 Temperature 98.4 F Temperature Source Oral Pulse Rate 69 64 Respiratory Rate 18 16 Respiratory Effort Respiratory Depth Respiratory Pattern Blood Pressure 129/91 H 121/81 H Blood Pressure Mean 103 93 Pulse Ox 100 97 98 Oxygen Delivery Method Room Air Room Air 10/14/25 22:30 Temperature Temperature Source Pulse Rate 73 Respiratory Rate 16 Respiratory Effort Respiratory Depth Respiratory Pattern Blood Pressure 129/94 H Blood Pressure Mean 104 Pulse Ox 99 Oxygen Delivery Method MDM MDM MDM Narrative Medical decision making narrative: HISTORY OF PRESENT ILLNESS: Chief complaint: Shortness of breath, flank 35-year-old female history of PE notes history of pulm embolism most recent taken of blood thinners on Monday. Notes right-sided rib pain is worse with a deep breath. No falls or trauma. No trouble urinating. Complaint of pain over the right flank. REVIEW OF SYSTEMS: Pertinent positives: Shortness of breath, right abdominal pain/flank Pertinent negatives: Vomiting PHYSICAL EXAM: Nursing triage notes reviewed, Vital signs reviewed Constitutional: please see [facility] HENT: MMM Eyes: Pupils equal round and reactive to light, Extraocular muscles intact Neck: No stridor, no JVD, full neck ROM Lungs: Clear to auscultation, No wheezing or rales. No increased work of breathing, no conversational dyspnea, no accessory muscle use, no nasal flaring. No respiratory distress noted Heart: Regular rate and rhythm, No murmurs, No rubs and No gallops, 2+ distal pulses (radial, femoral, posterior tibial) in all extremities Abdomen: Soft, there is no tenderness, rigidity, rebound or guarding, no obvious peritoneal signs, no palpable pulsatile abdominal masses, no auscultated abdominal bruit : No CVAT Extremities: No edema Neuro: No new focal neurological deficits, cranial nerves II through XII intact, 5/5 strength in all present extremities. Intact sensation to light touch in all present extremities, 2+ reflexes bilateral patella tendons. Skin: No rash or lesions noted MEDICAL DECISION MAKING: Chief Complaint: please see HPI External records reviewed: Reviewed CT scan of the chest from May 2025 which shows acute PE Factors affecting care: Pulmonary embolism Social determinants of health: none History obtained from others: none Consults: none [facility] Narrative: The patient was initially hemodynamically stable, afebrile and nontoxic-appearing. Exam with no apparent cardiopulmonary deficits or abdominal TTP I considered the following differential diagnosis: PE, pleurisy, pneumonia, ACS, arrhythmia, anemia I obtained a broad lab and imaging workup to further determine if the patient was suffering from a life-threatening etiology. Offered pain medicine the patient refused. ALL IMAGES (IF OBTAINED) HAVE BEEN PERSONALLY REVIEWED AND INTERPRETED BY MYSELF. CT of the chest shows stable pulmonary embolism in the right lung field. High-sensitivity troponin is negative, no evidence of myocardial ischemia BMP without evidence of significant electrolyte abnormalities, no anion gap, no acute kidney injury. CBC without leukocytosis, severe anemia, no thrombocytopenia. BMP without evidence of significant electrolyte abnormalities, no anion gap, no acute kidney injury. While the patient's CTA did not show an obvious acute PE it did show a pulmonary embolism that is likely chronic however given new symptomatology and out of abundance of caution we will restart the patient's blood thinner. Will give vascular surgery follow-up. The patient and/or family, caregivers express understanding. The patient and/or family, caregivers agrees with the plan. Shared decision making: I will have a discussion with the patient and or visitors regarding risk/benefits of further testing or admission. They will be made aware of of the risk/benefits inherent in this decision they will be given the opportunity to voice understanding. Total critical care time today provided was at least 0 minutes. This excludes separately billable procedures. Critical care time (if documented) is secondary to the patient having high probability of clinically significant/life threatening deterioration in the patient's condition which required my urgent intervention. Impression: 1. Pleuritic chest pain 2. Chronic pulmonary embolism Dispo: Discharge home This note was generated with Faveeo dictation software. It may contain incorrect words, spelling, and punctuation that were not noted in review of the chart prior to signing. Lab Data Labs: Laboratory Results - last 24 hr 10/14/25 21:05 WBC 9.0 RBC 5.29 Hgb 13.7 Hct 43.1 MCV 81.5 MCH 25.9 L MCHC 31.8 L RDW Std Deviation 42.9 RDW Coeff of [place] 14.6 Plt Count 321 MPV 8.9 Immature Gran % (Auto) 0.200 Neut % (Auto) 48.9 Lymph % (Auto) 42.6 H [place] % (Auto) 5.7 Eos % (Auto) 2.0 Baso % (Auto) 0.6 Absolute Neuts (auto) 4.4 Absolute Lymphs (auto) 3.84 Nucleated RBC % 0 Sodium 136 Potassium 4.2 Chloride 100 Carbon Dioxide 22.9 Anion Gap 13 BUN 12 Creatinine 0.80 Estim Creat Clear Calc 104.45 Est GFR (MDRD) Non-Af 99 BUN/Creatinine Ratio 14.9 Glucose 82 Calcium 9.9 Troponin T High Sens < 6 NT pro BNP II < 36 Radiography Diagnostic Testing: Clinical Impression(s) from Imaging Studies Chest CTA 10/14/25 21:22 IMPRESSION: 1. Unchanged single nonocclusive intraluminal filling defect in the proximal branch of the right interlobar pulmonary artery. 2. No acute pulmonary embolism. 3. No acute findings in the chest as imaged. 4. Moderate diffuse hepatic steatosis. Reading Location: [facility] Discharge Plan Triage Chief Complaint: Shortness of Breath Other Complaint: Flank Pain ED Provider: Harjinder Marsh Dx/Rx/DC Orders Instructions: Pulmonary Embolism Dc Prescriptions: New enoxaparin [Lovenox] 100 mg/mL syringe 100 mg subcut Q12H 30 Days Qty: 60 0RF No Action famotidine 20 mg tablet 20 mg PO BID enoxaparin [Lovenox] 100 mg subcut BID acetaminophen 500 mg Tablet 1,000 mg PO Q6H PRN PRN (Reason: Pain 1-10 Or Fever) Qty: 0 0RF Primary Care Provider: Care Physician,No Primary Referrals: Trenton Marcus MD [Med Staff - Active Staff, Vascular Surgery] Juan R Costa MD [Med Staff - Active Staff, Family Practice] Activity Restrictions/Additional Instructions: Thank you for trusting us with your care today! The CT scan of your chest showed no significant changes from prior however it did show a pulmonary embolism in your lung. This could be related to your initial pulmonary embolism or given your symptoms it could represent some slight progression. Out of an abundance of caution I will restart Lovenox your blood thinner. Please return to the emergency department if your symptoms change or worsen. Please follow with vascular surgery for further outpatient evaluation and management. Print Language: Nepali Disposition Disposition: Home, Self Care
--- NOTE | 2025-10-14 21:10 | EKG12_ITS ---
Test Reason : DYSRHYTHMIA Blood Pressure : */* mmHG Vent. Rate : 65 BPM Atrial Rate : 65 BPM P-R Int : 156 ms QRS Dur : 70 ms QT Int : 406 ms P-R-T Axes : 34 -1 36 degrees QTcB Int : 422 ms Normal sinus rhythm Normal ECG Confirmed by Andrew Anne ([id number]), material expeditor ANGELA PEREZ ([id number]) on 10/15/2025 10:25:41 AM Referred By: Confirmed By: Andrew Anne
[2025-10-14 21:22] LABS: Hematocrit 43.1 % (37-47); Hemoglobin 13.7 g/dL (12.0-15.0); Immature Granulocytes Count 0.020 X10^3/uL (0.0-0.0); Mean Corp Hgb Conc 31.8 g/dL (32-36); Mean Corpuscular Volume 81.5 fL (81-99); Mean Platelet Vol. 8.9 fl (6.2-12.0); NRBC Flagged by Analyzer 0 % (0-5); Platelet Count 321 K/mm3 (150-450); RBC Distribution Width CV 14.6 % (11.6-14.6); RBC Distribution Width SD 42.9 fl (35.1-43.9); Red Blood Count 5.29 M/mm3 (4.2-5.4); White Blood Count 9.0 K/mm3 (4.4-11.0)
--- NOTE | 2025-10-14 21:22 | CT_ITS ---
PROCEDURE: CTA CHEST W/WO CONTRAST 10/14/2025 REASON FOR EXAM: RIGHT SIDED CHEST PAIN TECHNIQUE: Procedure Code: [id number] Modality: CT Procedure: CTA CHEST W/WO CONTRAST Multiplanar Sagittal and Coronal images were obtained. CONTRAST: 100 cc of Isovue 370 One or more dose reduction techniques were used (e.g., Automated exposure control, adjustment of the mA and/or kV according to patient size, use of iterative reconstruction technique). COMPARISON: CT angio chest 06/13/2025 FINDINGS: Hardware: None. Lymph nodes: No enlarged mediastinal, hilar, or axillary lymph nodes. Heart: Nonenlarged. No pericardial effusion. Thoracic Aorta: No thoracic aortic aneurysm or dissection. Pulmonary Vessels: Grossly unchanged single nonocclusive intraluminal filling defect in the proximal branch of the right interlobar pulmonary artery (axial image 114 of 225). No other filling defects to suggest an acute pulmonary embolism. Lungs and Airways: Lungs are clear. Airways are patent. Pleura: No pleural effusion. No pneumothorax. Upper Abdomen: Moderate diffuse hepatic steatosis. Visualized upper abdomen otherwise unremarkable. Bones: Unremarkable. No acute fractures. CT/CTA Chest W/WO Contrast IMPRESSION: 1. Unchanged single nonocclusive intraluminal filling defect in the proximal br anch of the right interlobar pulmonary artery. 2. No acute pulmonary embolism. 3. No acute findings in the chest as imaged. 4. Moderate diffuse hepatic steatosis. Reading Location: [facility]
--- OUTSIDE RECORDS SUMMARY | 2025-10-14 21:39 | XMS RPT_ITS | CCD ---
Author Organization [facility] CliniSysd Care Team Providers Care Bankruptcy Assistant Name Role Phone Unavailable Unavailable Unavailable Rosi Mendoza Unavailable Unavailable Xenia Starr Unavailable Unavailable Rosi Mendoza Unavailable Unavailable Rocky Ambreen Mason Unavailable Unavailable Xenia Starr Unavailable Unavailable None, No PCP Unavailable Unavailable Xenia Starr Unavailable Unavailable Unavailable Free, Text Entry Unavailable Unavailable Felicita Beltran Unavailable Rosalina Muñiz MD Primary Care Provider ZUNILDA, ROSALINA Primary Care Unavailable FEDERICA ROSSI Referring Unavailable FEDERICA ROSSI Admitting Unavailable Pending Provider Unavailable Unavailable [place], Dr. Rosi Hughes Attending Unavailabl e Pending, Provider Primary Care Unavailable Rafi, Dr. Rosi Hughes Referring Unavailabl e Rafi, Dr. Rosi Hughes Attending Unavailabl e Pending, Provider Primary Care Unavailable Rafi, Dr. Rosi Hughes Referring Unavailabl e Rafi, Dr. Rosi Hughes Attending Unavailabl e Pending, Provider Primary Care Unavailable Rosalina Muñiz MD Primary Care Provider Ganesh Boggs MD Mounir Unavailable ZUNILDA, ROSALINA Primary Care Unavailable ZUNILDA, ROSALINA Admitting Unavailable Ganesh Boggs MD Mounir Unavailable Rosalina Muñiz MD Unavailable ROSALINA MUÑIZ Attending Unavailable ZUNILDA, ROSALINA Primary Care Unavailable ZUNILDA, ROSALINA Primary Care Unavailable ZUNILDAROSALINA Lacy Attending Unavailable ZUNILDA, ROSALINA Primary Care Unavailable ZACHARIAH VARGAS Attending Unavail able ZUNILDA, ROSALINA Primary Care Unavailable ZUNILDAROSALINA Lacy Attending Unavailable GANESH BOGGS Attending Faby vailable ZUNILDA, ROSALINA Primary Care Unavailable ZUNILDA, ROSALINA Attending Unavailable ZUNILDA, ROSALINA Primary Care Unavailable ZUNILDA, ROSALINA Attending Unavailable ZUNILDA, ROSALINA Primary Care Unavailable Newbilmason ZHAO, Mandy M Primary Care Provider [phone] NEWBILL, MANDY M Attending Unavailable NEWBILL, MANDY M Primary Care Unavailable NEWBILL, MANDY M Attending Unavailable NEWBILL, MANDY M Referring Unavailable NEWBILL, MANDY M Primary Care Unavailable NEWBILL, MANDY M Attending Unavailable NEWBILL, MANDY M Primary Care Unavailable VAISHALI US Referring Unavailable NEWBILL, MANDY M Primary Care Unavailable Unavailable [facility] Le[facility] PA-C Attending Provider Estevan COLLADO, Dr. Roth Emergency Provider Care Physician, No Primary Primary Care Provider Unavailable Siva COLLADO, Dr. Payne Attending Provider [phone] Dr. Kerry Paniagua MD Referring Provider [phone] Dr. Keyla Kay MD Admit Provider Trav COLLADO, Dr. Ramires Attending Provider Trav COLLADO, Dr. Ramires Referring Provider Care Physician, No Primary Primary Care Unava ilable Keyla Kay Referring Unavailable Keyla Kay Attending Unavailable Keyla Kay Admitting Unavailable Kerry Paniagua Referring Unavailable Kerry Paniagua Attending Unavailable Care Physician, No Primary Primary Care Unava ilable Kerry Paniagua Attending Unavailable Care Physician, No Primary Primary Care Unava ilable Bird Adams Attending Unavailable Kerry Paniagua Attending Unavailable Kerry Paniagua Admitting Unavailable Care Physician, No Primary Primary Care Unava ilable Kerry Painagua Referring Unavailable HANAILA WRIGHT Attending Unavailable HAKYLE, NAILA Referring Unavailable CHRISTIAN CONTRERAS Referring Unavail able SHERYL BEJARANO Attending Unavailable NECHASEIDRE Referring Unavail able AMPARO HAGER Attending Unavailable KEYLA KAY Referring Unavailable WISWELL, KARYN Attending Unavailable NEYHART HOUSTON, CHRISTIAN Referring Unavail able LITZY, OBEDMON Attending Unavailable TORCHIA, YUDI Referring Unavailable WISWELL, KARYN Referring Unavailable TRAV, KEYLA L Referring Unavailable NEYHART HOUSTON, CHRISTIAN Attending Unavail able TORCHIA, YUDI Referring Unavailable BEJARANO, SHERYL Referring Unavailable BEJARANO, SHERYL Referring Unavailable BEJARANO, SHERYL Attending Unavailable TRAV, KEYLA L Referring Unavailable WISWELL, KARYN Referring Unavailable LITZY, KARMON Attending Unavailable TORCHIA, YUDI Attending Unavailable LITZY, KARMON Referring Unavailable LITZY, KARMON Attending Unavailable TIZZANOYONATAN Attending Unavailable HAURY, NAILA Referring Unavailable BEJARANO, SHERYL Attending Unavailable HAURY, NAILA Referring Unavailable HAURY, NAILA Referring Unavailable TRAV, KEYLA L Attending Unavailable TRAV, KEYLA L Referring Unavailable HAURY, NAILA Attending Unavailable ELEANOR GOMEZ Attending Unavailable CURRY, REGGIE Primary Care Unavailable OLDER, MEAGHAN Attending Unavailable CURRY, REGGIE Primary Care Unavailable TORCHIA, YUDI Referring Unavailable TORCHIA, YUDI Attending Unavailable CURRY, REGGIE Primary Care Unavailable TRAV, KEYLA L Referring Unavailable KUBIKESHIA HELMS Attending Unavailable TORCHIA, YUDI Referring Unavailable NEYHART HOUSTON, CHRISTIAN Referring Unavail able BEJARANO, SHERYL Attending Unavailable WISWELL, KARYN Referring Unavailable MADANAMPARO Attending Unavailable HAURY, NAILA Attending Unavailable TORCHIA, YUDI Referring Unavailable TORCHIA, YUDI Referring Unavailable NEYHART HOUSTON, CHRISTIAN Attending Unavail able HAURY, NAILA Referring Unavailable Allergies Allergy Classification Reported Allergen(s) Allergy Type Date of Onset Reaction(s) Facility Penicillins (antibiotic) (2 sources) Penicillins; Translations: [Penicillins] Drug Allergy Rash [facility] [address] Work Phone: (17 sources) Amoxicillin; Translations: [amoxicillin] Drug Allergy Rash [facility] [address] Work Phone: (20 sources) Penicillins; Translations: [Penicillins] Allergy to drug (finding) 6 Rash [facility] [address] Work Phone: (5 sources) Penicillins Propensity to adverse reactions to drug 6 Rash [facility] (16 sources) Penicillins Propensity to adverse reactions to drug 6 Rash [facility] (5 sources) Penicillins Drug Allergy 3 Rash [facility] Medications Current Medications Medication Drug Class(es) Dates Sig (Normalized) Sig (Original) acetaminophen 500 mg oral tablet (1 source) Start: 07-03-2025 take 1-10 tablets by mouth every six hours as needed for pain Acetaminophen 500 mg Tablet Active 1000 mg PO EVERY 6 HOURS NEEDED as needed for Pain 1-10 Or Fever 0 0 July 03, 2025 12:00am acetaminophen 325 mg / butalbital 50 mg / caffeine 40 mg oral tablet (3 sources) Barbiturate, Central Nervous System Stimulant, Methylxanthine Start: 04-03-2024 take 1 tablet by mouth every four hours for headache butalbital-acetami nophen-caff 50-325-40 mg tablet Indications: Tension headache TAKE 1 TABLET BY MOUTH EVERY 4 HOURS IF NEEDED FOR HEADACHES. USE NO MORE THAN 5/DAY, 10/WEEK, 30/MONTH. 30 tablet 04/03/2024 Active Start: 09-19-2023 take 1 tablet by louise th every four hours for headache lkcwaadvph-ssngjhryetykm-wlic 50-325-40 mg tablet Indications: Tension headache Take 1 tablet by mouth every 4 hours if needed for headaches. Use no more than 5/day, 10/week, 30/month. 30 tablet 0 09/19/2023 Active [id number] 200 actuat albuterol 0.09 mg/actuat metered dose inhaler (20 sources) beta2-Adrenergic Agonist Start: 10-10-2023 take 2 puff(s) by inhalation every six hours for wheezing albuterol 90 mcg/actuation inhaler Indications: Mild intermittent asthma, unspecified whether complicated ([facility]) Inhale 2 puffs every 6 hours if needed for wheezing. 18 g 6 10/10/2023 Active Start: 11-08-2021 End: 09-19-2023 take 2 puff(s) by inhalation every four hours as needed for wheezing albuterol (Ventolin HFA) 90 mcg/actuation inhaler Indications: Flu-like symptoms , Cough Inhale 2 (two) puffs every 4 (four) hours as needed for wheezing or shortness of breath . 16 g 1 09/19/2022 09/19/2023 Active ALBUTEROL INHALA TION Inhale 2 Inhalations as instructed as needed (WHEEZING, SHORTNESS OF BREATH). Active take 2 puff(s) by in halation every six hours for wheezing albuterol 90 mcg/actuation inhaler Inhale 2 puffs every 6 hours if needed for wheezing. 0 Active azithromycin 250 mg oral tablet (4 sources) Macrolide Antimicrobial Start: 11-06-2023 azithromycin (Zithromax) 250 mg tablet Indications: Acute asthmatic bronchitis ([facility]) Take 1 tablet (250 mg) by mouth once daily. 2 tabs po day 1 1 tab po every day days 2-5 6 tablet 11/06/2023 Active Start: 01-06-2022 azithromycin ( Z-EMORY) 5 day dose pack Indications: Bronchitis Follow directions on package. . 6 tablet 0 01/06/2022 Active Start: 12-09-2020 End: 12-13-2020 take 10 tablets by mouth once Azithromycin 5 Day Dose Pack 250 mg oral tablet ; take as directed on package Quantity: 6 Refills: 0 Ordered: 09-Dec-2020 Peg Mcghee Start: 09-Dec-2020 End: 13-Dec-2020 Status: Other Generic Substitution Allowed Comments: Do not take dairy products, antacids, or iron preparations within one hour of this medication.Finish all this medication unless otherwise directed by prescriber. Comment on above: Do not take dairy pr oducts, antacids, or iron preparations within one hour of this medication.Finish all this medication unless otherwise directed by prescriber. control (1 source) control Quantity: 0 Refills: 0 Ordered: 20-Jan-2021 Lisette Delcid Generic Substitution Allowed Blood-Glucose Meter (ULTIMA MONITOR) (11 sources) Start: 025 Blood-Glucose Meter (ULTIMA MONITOR) Use as directed 4 times daily 1 each 06/04/2025 Active brompheniramine maleate 0.4 mg/ml / dextromethorphan hydrobromide 2 mg/ml / pseudoephedrine hydrochloride 6 mg/ml oral solution (2 sources) alpha-Adrenergic Agonist, Uncompetitive R-uaofwu-M-aspartate Receptor Antagonist, Sigma-1 Agonist Start: 024 take 5 mL by mouth every four hours for cough brompheniramine-pse udoeph-DM (Bromfed DM) 2-30-10 mg/5 mL syrup Indications: Acute asthmatic bronchitis Take 5 mL by mouth every 4 hours if needed for allergies, congestion or cough. 120 mL 1 11/06/2023 Active Start: 12-09-2020 End: 12-13-2020 take 5 mL by mouth every six hours brompheniramine/pseudoephedrine/dextrome thorphan [id number]/5 mL oral syrup ; 5 milliliter(s) orally every 6 hours Quantity: 120 Refills: 0 Ordered: 09-Dec-2020 Peg Mcghee Start: 09-Dec-2020 End: 13-Dec-2020 Status: Other Generic Substitution Allowed Comments: May cause drowsiness. Alcohol may intensify this effect. Use care when operating dangerous machinery.Obtain medical advice before taking any non-prescription drugs as some may affect the action of this medication. Comment on above: May cause drowsiness . Alcohol may intensify this effect. Use care when operating dangerous machinery.Obtain medical advice before taking any non-prescription drugs as some may affect the action of this medication. 12 hr buPROPion hydrochloride 90 mg / naltrexone hydrochloride 8 mg extended release oral tablet (4 sources) Opioid Antagonist, Aminoketone Start: naltrexone-buprop ion 8-90 mg TbER Take with meals Take 1 tab AM X 7 days, then 1 tab BID X 7 days, then 2 tab AM and 1 tab PM X 7 days, then 2tab BID t . 70 tablet 0 12/28/2022 Active cholecalciferol 0.05 mg oral tablet (8 sources) Vitamin D Start: 023 End: take 1 tablet by mouth once daily cholecalciferol, vitamin D3, 50 mcg (2,000 unit) Tab Take 1 (one) tablet (2,000 Units total) by mouth daily Start after completion of vit D 50,000 IU . 90 tablet 0 11/10/2022 Active citalopram 10 mg oral tablet (1 source) Serotonin Reuptake Inhibitor Start: End: 05-19-2 024 take 1 tablet by mouth once daily citalopram (CeleXA) 10 mg tablet Indications: Anxiety Take 1 tablet (10 mg) by mouth once daily. 30 tablet 5 09/19/2023 03/17/2024 Active Desogestrel / Ethinyl Estradiol (14 sources) Progestin, Estrogen Start: 021 Apri 0.15-0.03 mg per tablet dextromethorphan hydrobromide 15 mg / guaiFENesin 400 mg / pseudoephedrine hydrochloride 60 mg oral tablet (1 source) alpha-Adrenergic Agonist, Uncompetitive A-rylmqi-F-aspartate Receptor Antagonist, Sigma-1 Agonist Start: 024 take 1 tablet by mouth four times daily as needed pseudoephedrine-D M-guaifenesin 60-15-400 mg tablet Indications: Acute asthmatic bronchitis ([facility]) Take 1 tablet by mouth 4 times a day as needed (cold/allergy symptoms). 30 tablet 11/06/2023 Active Enoxaparin (9 sources) Low Molecular Weight Heparin Start: 025 enoxaparin Active 100 mg SC TWICE A DAY July 01, 2025 12:00am PE Start: 06-13-2025 End: 07-13-2025 inject 0.975 mL by subcutaneous injection every twelve hours enoxaparin (LOVENOX) 100 mg/mL syrg Inject 0.975 mL subcutaneously every 12 hours. 60 mL 2 06/13/2025 07/13/2025 Active ergocalciferol 1.25 mg oral capsule (8 sources) Provitamin D2 Compound Start: 11-10-2022 End: 04-21-2023 take 1 capsule by mouth every week ergocalciferol (ERGOCALCIFEROL) 1,250 mcg (50,000 unit) capsule Take 1 (one) capsule (50,000 Units total) by mouth once a week for 24 doses . 24 capsule 0 11/10/2022 04/21/2023 Active famotidine 20 mg oral tablet (20 sources) Histamine-2 Receptor Antagonist Start: 03-20-2025 take 1 tablet by mouth twice daily famotidine (PEPCID) 20 mg tablet Take 1 tablet by mouth two times a day. 60 tablet 3 03/20/2025 Active Start: 11-29-2023 take 1 tablet by louise th twice daily famotidine (Pepcid) 20 mg tablet Indications: Adverse effect of drug, initial encounter Take 1 tablet (20 mg) by mouth 2 times a day for 7 days. 14 tablet 0 09/27/2023 Active ibuprofen 600 mg oral tablet (1 source) Nonsteroidal Anti-inflammatory Drug Start: 10-03-2019 take 1 tablet by mouth every six hours ibuprofen 600 mg oral tablet ; 1 tab(s) orally every 6 hours as needed pain Quantity: 40 Refills: 0 Ordered: 03-Oct-2019 Rosi Mendoza Start: 03-Oct-2019 Status: Other Generic Substitution Allowed 24 hr metFORMIN hydrochloride 750 mg extended release oral tablet (20 sources) Biguanide Start: 06-01-2022 take 1 tablet by mouth twice daily metFORMIN (GLUCOPHAGE-XR) 750 MG 24 hr tablet Take 1 (one) tablet (750 mg total) by mouth 2 (two) times a day . 0 07/25/2022 Active multivitamin tablet (3 sources) take 1 tablet by mouth once daily multivitamin tablet Take 1 tablet by mouth once daily. Active take 1 tablet by mouth once jorge y multivitamin tablet Take 1 tablet by mouth once daily. 0 Active ondansetron 4 mg oral tablet (2 sources) Serotonin-3 Receptor Antagonist Start: 08-16-2021 End: 08-20-2021 take 1 tablet by mouth every six hours as needed Zofran 4 mg oral tablet ; 1 tab(s) orally every 6 hours x 5 days, As Needed nausea Quantity: 20 Refills: 0 Ordered: 16-Aug-2021 Felicita Beltran Start: 16-Aug-2021 End: 20-Aug-2021 Generic Substitution Allowed Start: 08-05-2020 take 1 tablet by louise th every six hours Ondansetron HCl - 4 MG Oral Tablet TAKE 1 TABLET Every 6 hours PRN nausea Quantity: 20 Refills: 0 Rosi Mendoza DO Start : 05-Aug-2020 Active oseltamivir 75 mg oral capsule (1 source) Neuraminidase Inhibitor Start: 12-12-2019 take 1 capsule by mouth twice daily oseltamivir 75 mg oral capsule ; 1 cap(s) orally 2 times a day Quantity: 10 Refills: 0 Ordered: 12-Dec-2019 Andrew Swenson Start: 12-Dec-2019 Status: Other Generic Substitution Allowed Comments: Check with your doctor before becoming .Finish all this medication unless otherwise directed by prescriber. Comment on above: Check with your doct or before becoming .Finish all this medication unless otherwise directed by prescriber. phentermine hydrochloride 37.5 mg oral tablet (10 sources) Sympathomimetic Amine Anorectic Start: 11-14-2022 End: 12-12-2023 take 1 tablet by mouth once daily in the morning phentermine (ADIPEX-P) 37.5 mg tablet Indications: Obesity (BMI 30-39.9) Take 1 (one) tablet (37.5 mg total) by mouth every morning . 30 tablet 0 12/12/2022 02/08/2023 Discontinued (Ineffective) PNV no.95/ferrous fum/folic ac ( ORAL) (20 sources) PNV no.95/ferrou s fum/folic ac ( ORAL) Take 2 Pieces of gum by mouth once daily. Active predniSONE 10 mg oral tablet (4 sources) Start: 11-06-2023 take 4 tablets by mouth once daily, then take 3 tablets by mouth once daily, then take 2 tablets by mouth once daily, then take 1 tablet by mouth once daily predniSONE (Deltasone) 10 mg tablet Indications: Acute asthmatic bronchitis ([facility]) 4 tabs po every day x3 days, then 3 tabs po every day x3 days, then 2 tabs po every day x3 days, then 1 tab po every day x3 days 30 tablet 11/06/2023 Active Start: 03-31-2023 End: 04-07-2023 take 1 tablet by mouth three times daily predniSONE (DELTASONE) 10 MG tablet Indications: Upper respiratory tract infection, unspecified type Take 1 (one) tablet (10 mg total) by mouth 3 (three) times a day for 7 days . 21 tablet 0 03/31/2023 04/07/2023 Active Start: 01-06-2022 End: 01-11-2022 take 2 tablets by mouth once daily predniSONE (DELTASONE) 20 MG tablet Indications: Bronchitis Take 2 (two) tablets (40 mg total) by mouth daily for 5 days . 10 tablet 0 01/06/2022 01/11/2022 Active Prena1 Chew (1 source) Prena1 Chew Jonathan tity: 0 Refills: 0 Ordered: 16-Aug-2021 Lisette Delcid Generic Substitution Allowed gummies (1 source) gummies ; 1 gel chewed once a day Quantity: 0 Refills: 0 Ordered: 27-Sep-2019 Ambreen Anderson Status: Other Generic Substitution Allowed vitamin with Ca-Iron-FA 27-1 mg Tab (9 sources) take 1 tablet by mouth once daily vitamin with Ca-Iron-FA 27-1 mg Tab Take 1 (one) tablet by mouth daily . 0 Active Pseudoephedrine (1 source) alpha-Adrenergic Agonist Sudafed Quantity: 0 Refills: 0 Ordered: 09-Dec-2020 SadiVitaliySamaria J Status: Other Generic Substitution Allowed 0.25 mg, 0.5 mg dose 1.5 ml semaglutide 1.34 mg/ml pen injector (2 sources) Start: 3 semaglutide (OZEMPIC) 0.25 mg or 0.5 mg(2 mg/1.5 mL) Pen Inject 0.25 (one-quarter) mg under the skin every 7 days . 1 mL 0 02/08/2023 Active semaglutide, weight loss, (Wegovy) 0.25 mg/0.5 mL Pen (5 sources) Start: 3 End: 3 semaglutide, weight loss, (Wegovy) 0.25 mg/0.5 mL Pen Indications: Obesity (BMI 30-39.9) , PCOS (polycystic ovarian syndrome) , Infertility, female Inject 0.5 mL (0.25 mg total) under the skin every 7 days . 3 mL 0 12/12/2022 02/08/2023 Discontinued Start: 12-12-2022 semaglutide, w eight loss, (Wegovy) 0.25 mg/0.5 mL Pen Indications: Obesity (BMI 30-39.9) , PCOS (polycystic ovarian syndrome) , Infertility, female Inject 0.5 mL (0.25 mg total) under the skin every 7 days . 3 mL 0 12/12/2022 Active sertraline 50 mg oral tablet (2 sources) Serotonin Reuptake Inhibitor Start: 10-18-2023 End: 10-17-2024 take 1 tablet by mouth once daily sertraline (Zoloft) 50 mg tablet Indications: Anxiety Take 1 tablet (50 mg) by mouth once daily. 30 tablet 11 10/18/2023 Active valACYclovir 1000 mg oral tablet (1 source) Herpesvirus Nucleoside Analog DNA Polymerase Inhibitor, Herpes Simplex Virus Nucleoside Analog DNA Polymerase Inhibitor, Herpes Zoster Virus Nucleoside Analog DNA Polymerase Inhibitor Start: 12-10-2021 End: 12-17-2021 take 1 tablet by mouth three times daily valACYclovir (VALTREX) 1000 MG tablet Indications: Herpes zoster without complication Take 1 (one) tablet (1,000 mg total) by mouth 3 (three) times a day for 7 days . 21 tablet 0 12/10/2021 12/17/2021 Active vitamin b6 50 mg oral tablet (1 source) take 1 tablet by mouth twice daily Vitamin B6 50 mg oral tablet ; 1 tab(s) orally 2 times a day Quantity: 0 Refills: 0 Ordered: 27-Sep-2019 Ambreen Anderson Status: Other Generic Substitution Allowed Completed/Discontinued Medications Medication Drug Class(es) Dates Sig (Normalized) Sig (Original) Albuterol 90 mcg/actuation aerosol (3 sources) Start: 06-13-2025 End: 07-01-2025 Albuterol 90 mcg/actuation aerosol Discontinued 90 ug INHALATION NEEDED June 13, 2025 12:00am July 01, 2025 7:48am asthma 1-2 puffs PRN for SOB Start: 06-13-2025 Albuterol 90 m cg/actuation aerosol Active 90 ug INHALATION NEEDED June 13, 2025 12:00am asthma 1-2 puffs PRN for SOB amoxicillin 50 mg/ml oral suspension (2 sources) Penicillin-class Antibacterial Start: 04-28-2025 End: 04-28-2025 250 mg, ORAL, ONCE (UP TO 30 DAYS AMB), 1 dose, On Mon04/28/25 at 1330, Give 25mg amoxicillin suspension, wait 30 minutes. If there is no adverse reaction after 30 minutes , administer the remaining 225mg of amoxicillin suspension and monitor for an additional 31 minutes. Vital Signs recorded at baseline and PRN with symptoms. Refrigerate - Shake Well., Antimicrobial indication: Prophylaxis Start: 04-28-2025 End: 04-28-2025 amoxicillin 250 mg oral liqu id (AMOXIL) aspirin 81 mg delayed release oral tablet (11 sources) Platelet Aggregation Inhibitor, Nonsteroidal Anti-inflammatory Drug Start: 11-25-2024 End: 02-17-2025 take 1 tablet by mouth once daily aspirin, enteric coated (ECOTRIN LOW STRENGTH) 81 mg EC tablet Indications: 8 weeks gestation of (HCC) Take 1 tablet by mouth once daily. 90 tablet 3 11/25/2024 02/17/2025 Discontinued take 2 tablets by mouth once jayy ly aspirin 81 mg oral tablet ; 2 orally once a day Quantity: 0 Refills: 0 Ordered: 27-Sep-2019 Ambreen Anderson Status: Discontinued Generic Substitution Allowed benzonatate 100 mg oral capsule (2 sources) Non-narcotic Antitussive Start: 11-08-2021 End: 01-06-2022 benzonatate (TESSALON) 100 MG capsule Indications: Flu-like symptoms , Cough Take 1 (one) capsule to 2 (two) capsules (100-200 mg total) by mouth 3 (three) times a day as needed for cough . 60 capsule 0 11/08/2021 01/06/2022 Discontinued Desogestrel-Ethiny l Estradiol 0.15-30 MG-MCG Oral Tablet (6 sources) Start: 11-27-2020 take 1 tablet by mouth once daily, then take 2 tablets by mouth once Desogestrel-Ethiny l Estradiol 0.15-30 MG-MCG Oral Tablet TAKE 1 TABLET Daily Skip placebo pills every other pack Quantity: 1 Refills: 11 Ordered: 14-Dec-2021 Rosi Mendoza DO Start : 27-Nov-2020 Active Start: 11-27-2020 take 1 tablet by louise th once daily, then take 2 tablets by mouth once Desogestrel-Ethinyl Estradiol 0.15-30 MG-MCG Oral Tablet TAKE 1 TABLET Daily Skip placebo pills every other pack Quantity: 1 Refills: 11 Ordered: 27-Nov-2020 Rosi Mendoza DO Start : 27-Nov-2020 Active doxycycline hyclate 100 mg oral tablet (3 sources) Tetracycline-class Drug Start: 11-08-2022 End: 11-13-2022 take 1 tablet by mouth twice daily doxycycline hyclate (VIBRA-TABS) 100 MG tablet Take 1 (one) tablet (100 mg total) by mouth 2 (two) times a day for 5 days . 10 tablet 0 11/08/2022 11/13/2022 Sprintec 28 0.25-35 MG-MCG Oral Tablet (2 sources) Progestin, Estrogen Start: 08-05-2020 take 1 tablet by mouth three times daily Sprintec 28 0.25-35 MG-MCG Oral Tablet Take one TID x 1 week Quantity: 1 Refills: 0 Rosi Mendoza DO Start : 05-Aug-2020 Active 28 Tablet Pack Start: 08-05-2020 take 1 tablet by louise th once daily Sprintec 28 0.25-35 MG-MCG Oral Tablet Take 1 tablet daily Quantity: 1 Refills: 11 Rosi Mendoza DO Start : 05-Aug-2020 Active 28 Tablet Pack ferrous sulfate 325 mg oral tablet (20 sources) Start: 06-09-2025 End: 06-13-2025 take 1 tablet by mouth every other day Ferrous Sulfate 325 mg (65 mg iron) tablet Discontinued 325 mg PO every other day June 09, 2025 12:00am June 13, 2025 12:42pm Start: 04-22-2025 take 1 tablet by louise th every other day ferrous sulfate 325 mg (65 mg iron) tablet Take 1 tablet by mouth every other day. 15 tablet 3 04/22/2025 Active Start: 09-19-2023 End: 09-18-2024 take 1 tablet by mouth every other day ferrous sulfate 325 (65 Fe) MG EC tablet Indications: Other iron deficiency anemia Take 1 tablet (325 mg) by mouth every other day. Do not crush, chew, or split. 60 tablet 2 09/19/2023 09/18/2024 Active Start: 11-11-2022 End: 11-11-2023 take 1 tablet by mouth once daily at breakfast ferrous sulfate 325 (65 FE) MG tablet Take 1 (one) tablet (325 mg total) by mouth daily with breakfast . 30 tablet 2 11/11/2022 11/11/2023 Active take 1 tablet by louise th twice daily ferrous sulfate 325 mg (65 mg elemental iron) oral tablet ; 1 tab(s) orally 2 times a day Quantity: 0 Refills: 0 Ordered: 27-Sep-2019 Ambreen Anderson Status: Other Generic Substitution Allowed fluticasone propionate 0.05 mg/actuat metered dose nasal spray (8 sources) Corticosteroid Start: 08-15-2022 End: 10-18-2023 take 2 spray(s) nasal route once daily fluticasone propionate (FLONASE) 50 mcg/actuation nasal spray Instill 2 (two) sprays into each nostril daily . 16 g 12 10/18/2022 12/12/2022 Discontinued 10 ml iron sucrose 20 mg/ml injection (4 sources) Parenteral Iron Replacement Start: 06-02-2025 End: 06-02-2025 200 mg, INTRAVENOUS, ONCE, 1 dose, On Mon06/02/25 at 1100, May administer up to 200 mg via IV push over 5-10 minutes. Start: 05-29-2025 End: 05-29-2025 200 mg, INTRAVENOUS, ONCE, 1 dose, On Mon05/29/25 at 1600, May administer up to 200 mg via IV push over 5-10 minutes. Start: 05-27-2025 End: 05-27-2025 200 mg, INTRAVENOUS, ONCE, 1 dose, On Mon05/27/25 at 1100, May administer up to 200 mg via IV push over 5-10 minutes. Start: 05-22-2025 End: 05-22-2025 200 mg, INTRAVENOUS, ONCE, 1 dose, On Mon05/22/25 at 1430, May administer up to 200 mg via IV push over 5-10 minutes. letrozole 2.5 mg oral tablet (16 sources) Aromatase Inhibitor Start: 06-28-2022 Letrozole 2.5 MG Oral Tablet TAKE 3 TABLETS DAILY FOR 5 DAYS START ON CYCLE DAY 3-5. Quantity: 15 Refills: 0 Ordered: 23-Aug-2022 [id number] Saldana DO Start : 28-Jun-2022 Active Start: 06-01-2022 Letrozole 2.5 MG Oral Tablet TAKE 3 TABLET Daily For 5 days start on cycle day 3-5. Quantity: 15 Refills: 0 Ordered: 01-Jun-2022, Rosi Start : 01-Jun-2022 Active Start: 03-04-2022 Letrozole 2.5 MG Oral Tablet TAKE 3 TABLET Daily For 5 days start on cycle day 3-5. Quantity: 15 Refills: 0 Ordered: 04-May-2022 Tickfaw DO, Rosi Start : 04-Mar-2022 Active Start: 03-04-2022 Letrozole 2.5 MG Oral Tablet TAKE 2 TABLET Daily For 5 days start on cycle day 3-5. Quantity: 10 Refills: 0 Ordered: 30-Mar-2022 Rosi Mendoza DO Start : 04-Mar-2022 Active Start: 03-04-2022 Letrozole 2.5 MG Oral Tablet TAKE 1 TABLET DAILY starting on day 3-5 of your cycle for 5 dyas Quantity: 5 Refills: 0 Ordered: 04-Mar-2022 Rosi Mendoza DO Start : 04-Mar-2022 Active oxymetazoline hydrochloride 0.5 mg/ml nasal spray (3 sources) Start: 11-08-2022 End: 11-11-2022 oxymetazoline (AFRIN) 0.05 % nasal spray Instill 2 (two) sprays into each nostril 2 (two) times a day for 3 days . 30 mL 0 11/08/2022 11/11/2022 penicillin G potassium 2,000 Units injection in NaCl 0.9% 0.2 mL (PFIZERPEN-G) (2 sources) Start: 04-28-2025 End: 04-28-2025 penicillin G potassium 2,000 Units injection in NaCl 0.9% 0.2 mL (PFIZERPEN-G) Start: 04-28-2025 End: 04-28-2025 2,000 Units, INTRADERMAL, ON , 1 dose, On 04/28/25 at 0800, Refrigerate Pre- TABS (16 sources) Pre-Ryne TABS Quantity: 0 Refills: 0 Ordered: 02-Mar-2022 DO Active SUMAtriptan 50 mg oral tablet (5 sources) Serotonin-1b and Serotonin-1d Receptor Agonist Start: 08-23-2021 End: 01-06-2022 take 1 tablet by mouth every two hours as needed SUMAtriptan (IMITREX) 50 MG tablet Take 1 (one) tablet (50 mg total) by mouth every 2 (two) hours as needed for migraine Max of 200 mg in 24hrs . 10 tablet 0 08/23/2021 01/06/2022 Discontinued Problems Active Problems Problem Classification Problem Date Documented Da te Episodic/Chronic Allergic reactions (3 sources) Other atopic dermatitis; Translations: [Atopic dermatitis] Onset: 03-31-2023 Chronic Anxiety disorders (4 sources) Anxiety; Translations: [Anxiety disorder, unspecified] Onset: 09-19-2023 09-19-2023 Chronic Asthma (6 sources) Mild intermittent asthma; Translations: [Mild intermittent asthma, uncomplicated] Onset: 09-19-2023 09-19-2023 Chronic Bacterial infection; unspecified site (13 sources) Bacteria present; Translations: [Streptococcus, group B, as the cause of diseases classified elsewhere] Onset: 06-12-2025 06-12-2025 Episodic Cardiac dysrhythmias (4 sources) ECG: sinus tachycardia; Translations: [Tachycardia, unspecified] 06-13-2025 Episodic Deficiency and other anemia (7 sources) Anemia; Translations: [Anemia, unspecified] Episodic Comment on above: has been on fe Deficiency and other anemia (2 sources) Iron deficiency anemia; Translations: [Iron deficiency anemia, unspecified] Episodic Deficiency and other anemia (2 sources) Anemia, unspecified; Translations: [Anemia, unspecified] Onset: 11-09-2022 Episodic Deficiency and other anemia (2 sources) Other iron deficiency anemias; Translations: [Other iron deficiency anemias] Onset: 09-19-2023 Episodic Deficiency and other anemia (4 sources) Microcytic anemia; Translations: [Iron deficiency anemia, unspecified] 06-13-2025 Episodic Female infertility (1 source) Female infertility; Translations: [Female infertility, unspecified] Chronic Genitourinary symptoms and ill-defined conditions (1 source) Difficulty passing urine; Translations: [Other difficulties with micturition] 12-09-2024 Episodic Headache; including migraine (20 sources) Chronic intractable migraine without aura; Translations: [Chronic migraine without aura, intractable, without status migrainosus] Onset: 08-23-2021 Chronic Hemorrhoids (13 sources) Hemorrhoids; Translations: [Unspecified hemorrhoids] 06-09-2025 Episodic Joint disorders and dislocations; trauma-related (17 sources) Patellofemoral stress syndrome; Translations: [Pain in joint, lower leg] Chronic Joint disorders and dislocations; trauma-related (1 source) Patellofemoral stress syndrome; Translations: [Patellofemoral pain syndrome] Episodic Mycoses (18 sources) Tinea pedis; Translations: [Dermatophytosis of foot] Episodic Nausea and vomiting (18 sources) Nausea; Translations: [Nausea alone] Episodic Noninfectious gastroenteritis (1 source) Acute gastroenteritis; Translations: [Other and unspecified noninfectious gastroenteritis and colitis] 08-16-2021 Episodic Nonmalignant breast conditions (18 sources) Pain of breast; Translations: [Mastodynia] Episodic Other complications of (20 sources) Maternal obesity complicating , childbirth and the puerperium, antepartum; Translations: [Obesity complicating , first trimester] Onset: 11-25-2024 11-25-2024 Chronic Other complications of (20 sources) Anemia in mother complicating , childbirth AND/OR puerperium; Translations: [Anemia complicating , first trimester] Onset: 12-26-2024 12-26-2024 Chronic Other complications of (7 sources) Anemia of ; Translations: [Anemia complicating , first trimester] 12-26-2024 Chronic Other complications of (4 sources) Anemia complicating , third trimester; Translations: [Anemia complicating , third trimester (HCC)] Onset: 05-06-2025 Chronic Other complications of (1 source) Obesity complicating , third trimester; Translations: [Other obesity affecting in third trimester (HCC)] Onset: 12-23-2024 Chronic Other complications of (1 source) Anemia complicating , first trimester; Translations: [Anemia complicating , first trimester (HCC)] Onset: 04-22-2025 Chronic Other complications of (2 sources) Obesity complicating , second trimester; Translations: [Obesity affecting in second trimester, unspecified obesity type (HCC)] Onset: 12-23-2024 Chronic Other complications of (2 sources) Anemia complicating , second trimester; Translations: [Anemia during in second trimester (HCC)] Onset: 01-20-2025 Chronic Other complications of (1 source) Dysuria; Translations: [Other specified related conditions, first trimester] 12-09-2024 Episodic Other complications of (15 sources) Large for gestation age fetus; Translations: [Maternal care for excessive growth, unspecified trimester, not applicable or unspecified] Onset: 06-05-2025 06-05-2025 Episodic Other complications of (5 sources) Proteinuria; Translations: [Gestational proteinuria, third trimester] 06-13-2025 Episodic Other complications of (12 sources) Obstetric pulmonary embolism; Translations: [Thromboembolism in , third trimester] Onset: 06-17-2025 06-13-2025 Episodic Other complications of (2 sources) Excessive growth affecting management of mother; Translations: [Maternal care for excessive growth, unspecified trimester, not applicable or unspecified] 07-01-2025 Episodic Other complications of (2 sources) Gestational proteinuria, third trimester; Translations: [Gestational proteinuria, third trimester] Onset: 06-16-2025 Episodic Other complications of (1 source) Thromboembolism in , third trimester; Translations: [Pulmonary embolism affecting in third trimester (HCC)] Onset: 08-19-2025 Episodic Other connective tissue disease (18 sources) Foot pain; Translations: [Pain in limb] Episodic Other endocrine disorders (20 sources) Polycystic ovarian syndrome; Translations: [Polycystic ovary syndrome] Onset: 11-14-2022 Chronic Other endocrine disorders (1 source) Menarche; Translations: [History of Menarche] Chronic Other female genital disorders (18 sources) Abnormal uterine bleeding; Translations: [Unspecified disorders of menstruation and other abnormal bleeding from female genital tract] Chronic Other gastrointestinal disorders (5 sources) Constipation; Translations: [Constipation, unspecified] 06-09-2025 Episodic Other lower respiratory disease (18 sources) H/O: asthma; Translations: [Personal history of other diseases of respiratory system] Episodic Other lower respiratory disease (1 source) Shortness of breath; Translations: [Shortness of breath] Onset: 06-19-2025 Episodic Other nervous system disorders (1 source) Anesthesia of skin; Translations: [Numbness and tingling] Onset: 08-19-2025 Episodic Other nervous system disorders (1 source) Paresthesia of skin; Translations: [Numbness and tingling] Onset: 08-19-2025 Episodic Other non-traumatic joint disorders (1 source) Knee pain; Translations: [Left knee pain] Episodic Other non-traumatic joint disorders (17 sources) Pain in left knee; Translations: [Left knee pain] Episodic Other nutritional; endocrine; and metabolic disorders (18 sources) Obesity; Translations: [Obesity, unspecified] Chronic Other nutritional; endocrine; and metabolic disorders (20 sources) Body mass index 30+ - obesity; Translations: [Obesity, unspecified] Onset: 08-23-2021 Chronic Other nutritional; endocrine; and metabolic disorders (4 sources) Obesity, unspecified; Translations: [Obesity, unspecified] Onset: 08-23-2021 Chronic Other nutritional; endocrine; and metabolic disorders (1 source) Other obesity due to excess calories; Translations: [Class 2 obesity due to excess calories without serious comorbidity with body mass index (BMI) of 36.0 to 36.9 in adult] Onset: 08-19-2025 Chronic Other nutritional; endocrine; and metabolic disorders (1 source) Body mass index (BMI) 36.0-36.9, adult; Translations: [Class 2 obesity due to excess calories without serious comorbidity with body mass index (BMI) of 36.0 to 36.9 in adult] Onset: 08-19-2025 Chronic Other and delivery including normal (20 sources) care status; Translations: [Routine follow-up] Onset: 11-25-2024 Resolved: 02-17-2025 11-25-2024 Episodic Other skin disorders (1 source) Eruption; Translations: [Rash and other nonspecific skin eruption] 04-28-2025 Episodic Other upper respiratory infections (10 sources) Sinusitis; Translations: [Chronic sinusitis, unspecified] Onset: 11-05-2021 Chronic Other upper respiratory infections (20 sources) Acute frontal sinusitis; Translations: [Acute frontal sinusitis] Onset: 08-15-2022 11-08-2022 Episodic Pneumonia (except that caused by tuberculosis or sexually transmitted disease) (4 sources) Pneumonia; Translations: [Pneumonia, unspecified organism] Onset: 10-20-2024 10-20-2024 Episodic Pulmonary heart disease (7 sources) Pulmonary embolism; Translations: [Other pulmonary embolism without acute cor pulmonale] 06-13-2025 Episodic Comment on above: restart treatment af ter delivery. SAM briones on Rehabilitation care; fitting of prostheses; and adjustment of devices (2 sources) Patient encounter status; Translations: [Encounter for fitting and adjustment of other specified devices] Onset: 12-16-2024 12-16-2024 Chronic Residual codes; unclassified (9 sources) Gestation period, 36 weeks; Translations: [ state, incidental] Resolved: 09-30-2019 06-11-2025 Episodic Residual codes; unclassified (2 sources) Gestation period, 8 weeks; Translations: [8 weeks gestation of ] 11-25-2024 Episodic Residual codes; unclassified (2 sources) Gestation period, 12 weeks; Translations: [12 weeks gestation of ] 12-23-2024 Episodic Residual codes; unclassified (1 source) Gestation period, 16 weeks; Translations: [16 weeks gestation of ] 01-20-2025 Episodic Residual codes; unclassified (3 sources) Gestation period, 20 weeks; Translations: [20 weeks gestation of ] 02-17-2025 Episodic Residual codes; unclassified (2 sources) Gestation period, 29 weeks; Translations: [29 weeks gestation of ] 04-21-2025 Episodic Residual codes; unclassified (1 source) Gestation period, 30 weeks; Translations: [30 weeks gestation of ] 04-28-2025 Episodic Residual codes; unclassified (2 sources) Gestation period, 31 weeks; Translations: [31 weeks gestation of ] 05-06-2025 Episodic Residual codes; unclassified (1 source) Gestation period, 33 weeks; Translations: [33 weeks gestation of ] 05-20-2025 Episodic Residual codes; unclassified (2 sources) Gestation period, 35 weeks; Translations: [35 weeks gestation of ] 06-03-2025 Episodic Residual codes; unclassified (4 sources) History of surgical procedure on vein; Translations: [Other specified postprocedural states] 06-13-2025 Episodic Residual codes; unclassified (1 source) Gestation period, 37 weeks; Translations: [37 weeks gestation of ] 06-17-2025 Episodic Residual codes; unclassified (2 sources) Gestation period, 38 weeks; Translations: [38 weeks gestation of ] 06-23-2025 Episodic Residual codes; unclassified (2 sources) Gestation period, 39 weeks; Translations: [39 weeks gestation of ] 07-01-2025 Episodic Residual codes; unclassified (1 source) 38 weeks gestation of ; Translations: [38 weeks gestation of (HCC)] Onset: 06-23-2025 Episodic Residual codes; unclassified (1 source) 37 weeks gestation of ; Translations: [37 weeks gestation of (HCC)] Onset: 06-17-2025 Episodic Residual codes; unclassified (1 source) 36 weeks gestation of ; Translations: [36 weeks gestation of (HCC)] Onset: 06-10-2025 Episodic Screening and history of mental health and substance abuse codes (20 sources) H/O: depression; Translations: [Personal history of other mental and behavioral disorders] Onset: 11-25-2024 11-25-2024 Episodic Unclassified (2 sources) GI UPSET 08-16-2021 Comment on above: GI UPSET Unclassified (1 source) Gastroenteritis, acute 08-16-2021 Unclassified (1 source) Class 2 obesity due to excess calories without serious comorbidity with body mass index (BMI) of 36.0 to 36.9 in adult; Translations: [Class 2 obesity due to excess calories without serious comorbidity with body mass index (BMI) of 36.0 to 36.9 in adult] Onset: 08-19-2025 Unclassified (1 source) Other obesity affecting in third trimester (HCC); Translations: [Other obesity affecting in third trimester (HCC)] Onset: 12-23-2024 Unclassified (1 source) Back pain affecting ([facility]); Translations: [Back pain affecting ([facility])] Onset: 03-20-2025 Past or Other Problems Problem Classification Problem Date Documented Da te Episodic/Chronic Allergic reactions (20 sources) Allergy to penicillin; Translations: [Allergy status to penicillin] Onset: 11-25-2024 11-25-2024 Episodic Chronic obstructive pulmonary disease and bronchiectasis (11 sources) Bronchitis; Translations: [Bronchitis, not specified as acute or chronic] Onset: 01-06-2022 Episodic Deficiency and other anemia (1 source) Iron deficiency anemia, unspecified; Translations: [Maternal iron deficiency anemia complicating , third trimester (HCC)] Onset: 05-20-2025 Episodic Immunizations and screening for infectious disease (3 sources) Patient encounter status; Translations: [Encounter for screening for human papillomavirus (HPV)] Onset: 04-21-2025 11-25-2024 Episodic Other complications of (20 sources) High risk ; Translations: [Supervision of high risk , unspecified, first trimester] Onset: 11-25-2024 11-25-2024 Episodic Comment on above: Risk-benefit and alt ernatives to induction of labor discussed with patient her questions were answered to her satisfaction consent was signed and she desires to proceed. Will proceed with [place] with Pitocin and artificial rupture membranes as needed. May have routine pain control measures as needed. Estimated weight is approximately 4000 g. Pelvis clinically adequate to expect vaginal delivery. Other complications of (20 sources) Asthma in ; Translations: [Diseases of the respiratory system complicating , first trimester] Onset: 11-25-2024 11-25-2024 Episodic Other complications of (20 sources) Vomiting of , unspecified; Translations: [Unspecified vomiting of , unspecified as to episode of care or not applicable] Onset: 11-25-2024 11-25-2024 Episodic Other complications of (20 sources) Back pain complicating ; Translations: [Back pain affecting ] Onset: 03-20-2025 03-20-2025 Episodic Other complications of (1 source) Maternal care for excessive growth, unspecified trimester, not applicable or unspecified; Translations: [Excessive growth, antepartum, single or unspecified fetus (HCC)] Onset: 06-05-2025 Episodic Other complications of (1 source) Supervision of high risk , unspecified, third trimester; Translations: [Supervision of high risk in third trimester (HCC)] Onset: 02-17-2025 Episodic Other complications of (2 sources) Supervision of high risk , unspecified, second trimester; Translations: [Supervision of high risk in second trimester (HCC)] Onset: 12-23-2024 Episodic Other complications of (1 source) Other specified related conditions, second trimester; Translations: [Heartburn during in second trimester (HCC)] Onset: 03-20-2025 Episodic Other complications of (1 source) Supervision of high risk , unspecified, first trimester; Translations: [Encounter for supervision of high risk in first trimester, antepartum] Onset: 11-25-2024 Episodic Other ear and sense organ disorders (6 sources) Bilateral earache; Translations: [Otalgia, bilateral] Onset: 12-28-2022 Episodic Other ear and sense organ disorders (2 sources) Otalgia, bilateral; Translations: [Otalgia, bilateral] Onset: 12-28-2022 Episodic Other gastrointestinal disorders (1 source) Heartburn; Translations: [Heartburn during in second trimester (HCC)] Onset: 03-20-2025 Episodic Other lower respiratory disease (11 sources) Cough; Translations: [Cough] Onset: 11-08-2021 11-08-2021 Episodic Other nervous system disorders (20 sources) H/O: migraine; Translations: [Personal history of other diseases of the nervous system and sense organs] Onset: 12-23-2024 12-23-2024 Episodic Other screening for suspected conditions (not mental disorders or infectious disease) (20 sources) test negative; Translations: [ examination or test, negative result] Onset: 12-14-2021 Episodic Comment on above: 03/18/19 NIL; 12/14/2021; NIL 9 NIL; Other skin disorders (20 sources) Lesion of skin of breast; Translations: [Other specified disorders of the skin and subcutaneous tissue] Onset: 11-25-2024 11-25-2024 Episodic Other skin disorders (1 source) Rash and other nonspecific skin eruption; Translations: [Rash] Onset: 04-28-2025 Episodic Polyhydramnios and other problems of amniotic cavity (20 sources) Polyhydramnios; Translations: [Polyhydramnios, third trimester, not applicable or unspecified] Onset: 06-05-2025 06-03-2025 Episodic Residual codes; unclassified (6 sources) Influenza-like symptoms; Translations: [Other general symptoms and signs] Onset: 11-05-2021 Episodic Residual codes; unclassified (1 source) 35 weeks gestation of ; Translations: [35 weeks gestation of (HCC)] Onset: 06-03-2025 Episodic Residual codes; unclassified (1 source) 33 weeks gestation of ; Translations: [33 weeks gestation of (HCC)] Onset: 05-20-2025 Episodic Residual codes; unclassified (1 source) 31 weeks gestation of ; Translations: [31 weeks gestation of ([facility])] Onset: 05-06-2025 Episodic Residual codes; unclassified (1 source) 30 weeks gestation of ; Translations: [30 weeks gestation of ([facility])] Onset: 04-28-2025 Episodic Residual codes; unclassified (1 source) 29 weeks gestation of ; Translations: [29 weeks gestation of ([facility])] Onset: 04-21-2025 Episodic Residual codes; unclassified (1 source) 24 weeks gestation of ; Translations: [24 weeks gestation of (HCC)] Onset: 03-20-2025 Episodic Residual codes; unclassified (1 source) 20 weeks gestation of ; Translations: [20 weeks gestation of ([facility])] Onset: 02-17-2025 Episodic Residual codes; unclassified (2 sources) 8 weeks gestation of ; Translations: [8 weeks gestation of ([facility])] Onset: 12-23-2024 Episodic Residual codes; unclassified (1 source) 16 weeks gestation of ; Translations: [16 weeks gestation of ] Onset: 01-20-2025 Episodic Residual codes; unclassified (1 source) 12 weeks gestation of ; Translations: [12 weeks gestation of ] Onset: 12-23-2024 Episodic Spondylosis; intervertebral disc disorders; other back problems (1 source) Dorsalgia, unspecified; Translations: [Back pain affecting ([facility])] Onset: 03-20-2025 Episodic Unclassified (1 source) Patient encounter status; Translations: [History of Vaginal Pap smear] Unclassified (3 sources) Onset: 09-19-2023 Resolved: 11-06-2023 09-19-2023 Viral infection (12 sources) Herpes zoster without complication; Translations: [Zoster without complications] Onset: 12-10-2021 Episodic NEGATED: Highlighted row has not occurred!Residual codes; unclassified (9 sources) Disease Episodic Results Test Name Value Interpretation Reference Range Facility CBC W Auto Differential pane l (Bld)on 08-26-2025 Basophils (Bld) [#/Vol] 0.04 10*3/uL Normal <0.11 [facility] Comment on above: Order Comment: Benjamin buckley Type: BLOOD SPECIMENOrdering Facility: [facility] Address: [address] [place] [address] Performed By: #### 5 7021-8 ####[facility] HOSPITALOSTER [facility] HOSPITALDavis [id number] [place] [id number] [place] Basophils/100 WBC (Bld) 0.5 % Normal [facility] Comment on above: Order Comment: Benjamin buckley Type: BLOOD SPECIMENOrdering Facility: [facility] Address: [address] [place] [address] Performed By: #### 5 7021-8 ####[facility] STEVERADHAA [id number] [place] [address] [place] Differential cell count method Nom (Bld) Auto Normal [facility] Comment on above: Order Comment: Speci men Type: BLOOD SPECIMENOrdering Facility: [facility] Address: [address] [place] [address] Performed By: #### 5 7021-8 ####[facility]OSPITALBRYANNAMAGNOA [id number] [place] [address] [place] Eosinophils (Bld) [#/Vol] 0.12 10*3/uL Normal <0.46 [facility] Comment on above: Order Comment: Speci men Type: BLOOD SPECIMENOrdering Facility: [facility] Address: [address] [place] [address] Performed By: #### 5 7021-8 ####[facility] CENTERA [id number] [place] [address] [place] Eosinophils/100 WBC (Bld) 1.6 % Normal [facility] Comment on above: Order Comment: Speci men Type: BLOOD SPECIMENOrdering Facility: [facility] Address: [address] [place] [address] Performed By: #### 5 7021-8 ####[facility]OSPITALBRYANNAMAGNOA [id number] [place] [address] [place] Erythrocyte distribution width (RBC) [Ratio] 14.9 % Normal 11.5-15.0 [facility] Comment on above: Order Comment: Speci men Type: BLOOD SPECIMENOrdering Facility: [facility] Address: [address] [place] [address] Performed By: #### 5 7021-8 ####[facility] HOSPITALNCLI [id number] [place] [address] [place] Hematocrit (Bld) [Volume fraction] 43.7 % Normal 36.0-46.0 [facility] Comment on above: Order Comment: Speci men Type: BLOOD SPECIMENOrdering Facility: [facility] Address: [address] [place] [address] Performed By: #### 5 7021-8 ####[facility] [id number] [place] [address] [place] Hemoglobin (Bld) [Mass/Vol] 13.9 g/dL Normal 11.5-15.5 [facility] Comment on above: Order Comment: Speci men Type: BLOOD SPECIMENOrdering Facility: [facility] Address: [address] [place] [address] Performed By: #### 5 7021-8 ####[facility] [id number] [place] [address] [place] Immature granulocytes (Bld) [#/Vol] 10*3/uL Normal <0.10 [facility] Comment on above: Order Comment: Speci men Type: BLOOD SPECIMENOrdering Facility: [facility] Address: [address] [place] [address] Performed By: #### 5 7021-8 ####[facility] [id number] [place] [address] [place] Immature granulocytes/100 WBC (Bld) 0.3 % Normal [facility] Comment on above: Order Comment: Speci men Type: BLOOD SPECIMENOrdering Facility: [facility] Address: [address] [place] [address] Performed By: #### 5 7021-8 ####[facility]PITALNCA [id number] [place] [address] [place] Lymphocytes (Bld) [#/Vol] 2.64 10*3/uL Normal 1.00-4.00 [facility] Comment on above: Order Comment: Speci men Type: BLOOD SPECIMENOrdering Facility: [facility] Address: [address] [place] [address] Performed By: #### 5 7021-8 ####[facility] STEVEJuliaNCABA [id number] [place] [address] [place] Lymphocytes/100 WBC (Bld) 36.2 % Normal [facility] Comment on above: Order Comment: Speci men Type: BLOOD SPECIMENOrdering Facility: [facility] Address: [address] [place] [address] Performed By: #### 5 7021-8 ####[facility]OSPITALNCLIDavis [id number] [place] [address] [place] MCH (RBC) [Entitic mass] 26.0 pg Normal 26.0-34.0 [facility] Comment on above: Order Comment: Speci men Type: BLOOD SPECIMENOrdering Facility: [facility] Address: [address] [place] [address] Performed By: #### 5 7021-8 ####[facility]ITALNCLIA [id number] [address] [place] MCHC (RBC) [Mass/Vol] 31.8 g/dL Normal 30.5-36.[address] [facility] Comment on above: Order Comment: Speci men Type: BLOOD SPECIMENOrdering Facility: [facility] Address: [address] [place] [address] Performed By: #### 5 7021-8 ####[facility]ITALNCLIA [id number] [place] [address] [place] MCV (RBC) [Entitic vol] 81.7 fL Normal 80.0-100.0 C [facility] Comment on above: Order Comment: Speci men Type: BLOOD SPECIMENOrdering Facility: [facility] Address: [address] [place] [address] Performed By: #### 5 7021-8 ####[facility] MILLWNCLIA [id number] [place] [address] [place] Monocytes (Bld) [#/Vol] 0.45 10*3/uL Normal <0.87 [facility] Comment on above: Order Comment: Speci men Type: BLOOD SPECIMENOrdering Facility: [facility] Address: [address] [place] [address] Performed By: #### 5 7021-8 ####[facility]ITALNCLIA [id number] [place] [address] [place] Monocytes/100 WBC (Bld) 6.2 % Normal [facility] Comment on above: Order Comment: Speci men Type: BLOOD SPECIMENOrdering Facility: [facility] Address: [address] [place] [address] Performed By: #### 5 7021-8 ####[facility]ITALLIA [id number] [place] [address] [place] Neutrophils (Bld) [#/Vol] 4.02 10*3/uL Normal 1.45-7.50 [facility] Comment on above: Order Comment: Speci men Type: BLOOD SPECIMENOrdering Facility: [facility] Address: [address] [place] [address] Performed By: #### 5 7021-8 ####[facility] MILLWNCLIA [id number] [place] [address] [place] Neutrophils/100 WBC (Bld) 55.2 % Normal [facility] Comment on above: Order Comment: Speci men Type: BLOOD SPECIMENOrdering Facility: [facility] Address: [address] [place] [address] Performed By: #### 5 7021-8 ####[facility]ITALNCLIA [id number] [place] [id number] [place] Nucleated RBC (Bld) [#/Vol] 10*3/uL Normal <0.01 [facility] Comment on above: Order Comment: Speci men Type: BLOOD SPECIMENOrdering Facility: [facility] Address: [address] [place] [address] Performed By: #### 5 7021-8 ####[facility]ITALNC[facility] [id number] [place] [address] [place] Nucleated RBC/100 WBC (Bld) [Ratio] 0.0 /100 WBC Normal [facility] Comment on above: Order Comment: Speci men Type: BLOOD SPECIMENOrdering Facility: [facility] Address: [address] [place] [address] Performed By: #### 5 7021-8 ####[facility]ITALNC[facility] [id number] [place] [address] [place] Platelet mean volume (Bld) [Entitic vol] 8.3 fL Low 9.0-12.7 [facility] Comment on above: Order Comment: Speci men Type: BLOOD SPECIMENOrdering Facility: [facility] Address: [address] [place] [address] Performed By: #### 5 7021-8 ####[facility]ITALNCLIA [id number] [place] [address] [place] Platelets (Bld) [#/Vol] 301 10*3/uL Normal 150-400 [facility] Comment on above: Order Comment: Speci men Type: BLOOD SPECIMENOrdering Facility: [facility] Address: [address] [place] [address] Performed By: #### 5 7021-8 ####[facility]ITALNCLIA [id number] [place] [address] [place] RBC (Bld) [#/Vol] 5.35 10*6/uL High 3.90-5.20 [facility] Comment on above: Order Comment: Speci men Type: BLOOD SPECIMENOrdering Facility: [facility] Address: [address] [place] [address] Performed By: #### 5 7021-8 ####[facility] POINTWNCLIA [id number] [place] [address] [place] WBC (Bld) [#/Vol] 7.29 10*3/uL Normal 3.70-11.00 [facility] Comment on above: Order Comment: Speci men Type: BLOOD SPECIMENOrdering Facility: [facility] Address: [address] [place] [address] Performed By: #### 5 7021-8 ####[facility] IMP[facility] POINTWNCLIA [id number] [place] [address] [place] Comprehensive metabolic 2000 panelon 08-26-2025 Albumin [Mass/Vol] 4.8 g/dL Normal 3.9-4.9 [facility] Comment on above: Order Comment: Speci men Type: BLOOD SPECIMENOrdering Facility: [facility] Address: [address] [place] [address] Performed By: #### 2 4323-8 ####[facility]ITALNCLIA [id number] [place] [address] [place] ALP [Catalytic activity/Vol] 100 U/L Normal 34-123 [facility] Comment on above: Order Comment: Speci men Type: BLOOD SPECIMENOrdering Facility: [facility] Address: [address] [place] [address] Performed By: #### 2 4323-8 ####[facility]ITALNCLIA [id number] [place] [address] [place] ALT [Catalytic activity/Vol] 58 U/L High 7-38 [facility] Comment on above: Order Comment: Speci men Type: BLOOD SPECIMENOrdering Facility: [facility] Address: [address] [place] [address] Performed By: #### 2 4323-8 ####[facility] KARIME MILLTOWNCLIA [id number] [place] [address] [place] Anion gap [Moles/Vol] 13 mmol/L Normal 8-[address] [facility] Comment on above: Order Comment: Speci men Type: BLOOD SPECIMENOrdering Facility: [facility] Address: [address] [place] [address] Performed By: #### 2 4323-8 ####[facility] MILLTOWNCLIA [id number] [place] [address] [place] AST [Catalytic activity/Vol] 29 U/L Normal 13-35 [facility] Comment on above: Order Comment: Speci men Type: BLOOD SPECIMENOrdering Facility: [facility] Address: [address] [place] [address] Performed By: #### 2 4323-8 ####[facility] POINTWNCLIA [id number] [place] [address] [place] Bilirubin [Mass/Vol] 0.2 mg/dL Normal 0.2-1.3 [facility] Comment on above: Order Comment: Speci men Type: BLOOD SPECIMENOrdering Facility: [facility] Address: [address] [place] [address] Performed By: #### 2 4323-8 ####[facility] MILLTOWNCLIA [id number] [place] [address] [place] Calcium [Mass/Vol] 10.1 mg/dL Normal 8.5-10.2 [facility] Comment on above: Order Comment: Speci men Type: BLOOD SPECIMENOrdering Facility: [facility] Address: [address] [place] [address] Performed By: #### 2 4323-8 ####[facility] MILLTOWNCLIA [id number] [place] [address] [place] Chloride [Moles/Vol] 99 mmol/L Normal 98-107 [facility] Comment on above: Order Comment: Speci men Type: BLOOD SPECIMENOrdering Facility: [facility] Address: [address] [place] [address] Performed By: #### 2 4323-8 ####[facility] POINTWNCLIA [id number] [place] [address] [place] CO2 [Moles/Vol] 25 mmol/L Normal 22-30 [facility] Comment on above: Order Comment: Speci men Type: BLOOD SPECIMENOrdering Facility: [facility] Address: [address] [place] [address] Performed By: #### 2 4323-8 ####[facility] STEVEINDIANAPOLISNCLIDavis [id number] [place] [address] [place] Creatinine [Mass/Vol] 0.75 mg/dL Normal 0.58-0.[address] [facility] Comment on above: Order Comment: Speci men Type: BLOOD SPECIMENOrdering Facility: [facility] Address: [address] [place] [address] Performed By: #### 2 4323-8 ####[facility]PITALNCLIA [id number] [place] [address] [place] eGFRcr SerPlBld CKD-EPI 2020 108 mL/min/1.73m??? Normal >=60 [facility] Comment on above: Order Comment: Speci men Type: BLOOD SPECIMENOrdering Facility: [facility] Address: [address] [place] [address] Result Comment: Shante mated Glomerular Filtration Rate (eGFR) is calculated using the 2020 CKD-EPI creatinine equation. This equation utilizes serum creatinine, sex, and age as parameters. The creatinine assay has traceable calibration to isotope dilution-mass spectrometry. Refer to KDIGO guidelines for clinical interpretation. In patients with unstable renal function, e.g. those with acute kidney injury, the eGFR may not accurately reflect actual GFR. Performed By: #### 2 4323-8 ####[facility]OSPITALNCA [id number] [place] [address] [place] Glucose [Mass/Vol] 81 mg/dL Normal 74-99 [facility] Comment on above: Order Comment: Speci men Type: BLOOD SPECIMENOrdering Facility: [facility] Address: [address] [place] [address] Result Comment: The [place] Diabetes Association (ADA) provides guidance for cutoff values for fasting glucose and random glucose. The ADA defines fasting as no caloric intake for at least 8 hours. Fasting plasma glucose results between 100 to 125 mg/dL indicate increased risk for diabetes (prediabetes). Fasting plasma glucose results greater than or equal to 126 mg/dL meet the criteria for diagnosis of diabetes. In the absence of unequivocal hyperglycemia, results should be confirmed by repeat testing. In a patient with classic symptoms of hyperglycemia or hyperglycemic crisis, random plasma glucose results greater than or equal to 200 mg/dL meet the criteria for diagnosis of diabetes. Reference: Standards of Medical Care in Diabetes 2016, [place] Diabetes Association. Diabetes Care. 2016.39(Suppl 1). Performed By: #### 2 4323-8 ####[facility]ITALNCLIA [id number] [place] [address] [place] Potassium [Moles/Vol] 4.5 mmol/L Normal 3.7-5.[address] [facility] Comment on above: Order Comment: Cherisei men Type: BLOOD SPECIMENOrdering Facility: [facility] Address: [address] [place] [id number] Performed By: #### 2 4323-8 ####[facility]ITALNCLIA [id number] [place] [address] [place] Protein [Mass/Vol] 8.0 g/dL Normal 6.3-8.0 [facility] Comment on above: Order Comment: Cherisei men Type: BLOOD SPECIMENOrdering Facility: [facility] Address: [address] [place] [address] Performed By: #### 2 4323-8 ####[facility]ITALNCLIA [id number] [place] [address] [place] Sodium [Moles/Vol] 137 mmol/L Normal 136-144 [facility] Comment on above: Order Comment: Speci men Type: BLOOD SPECIMENOrdering Facility: [facility] Address: [address] [place] [address] Performed By: #### 2 4323-8 ####[facility] [id number] [place] [address] [place] Urea nitrogen [Mass/Vol] 12 mg/dL Normal 7-21 [facility] Comment on above: Order Comment: Speci men Type: BLOOD SPECIMENOrdering Facility: [facility] Address: [address] [place] [address] Performed By: #### 2 4323-8 ####[facility] CENTERDavis [id number] [place] [address] [place] Ferritin SerPl-mCncon 2024 Ferritin [Mass/Vol] 38.5 ng/mL Normal 14.7-205.1 [facility] Comment on above: Order Comment: Speci men Type: BLOOD SPECIMENOrdering Facility: [facility] Address: [address] [place] [address] Performed By: #### 5 0190-8, 2276-4, 3016-3 ####[facility] LABCLIA [id number] [place] [address] [place] Folate SerPl-mCncon 08-26-20 25 Folate [Mass/Vol] 18.6 ng/mL Normal >4.7 [facility] Comment on above: Order Comment: Speci men Type: BLOOD SPECIMENOrdering Facility: [facility] Address: [address] [place] [address] Performed By: #### 2 132-9, 2284-8 ####[facility] LABCLIA [id number] [place] [address] [place] HbA1c (Bld)on 08-26-2025 Average glucose Estimated from glycated hemoglobin (Bld) [Mass/Vol] 94 mg/dL Normal [facility] Comment on above: Order Comment: Speci men Type: BLOOD SPECIMEN [facility] Address: [address] [place] [address] Result Comment: eAG: (Estimated average glucose) is a calculated value from HgbA1c and is healthcare sales representative of the average blood glucose level in the last 2-3 month period. Performed By: #### C RRSCN #### [facility] CLIA [id number] [place] [address] HbA1c (Bld) [Mass fraction] 4.9 % Normal 4.3-5.6 [facility] Comment on above: Order Comment: Benjamin buckley Type: BLOOD SPECIMEN [facility] Address: [address] [place] [address] Result Comment: [place] Diabetes Association guidelines indicate that patients with HgbA1c in the range 5.7-6.4% are at increased risk for development of diabetes, and intervention by lifestyle modification may be beneficial. HgbA1c greater or equal to 6.5% is considered diagnostic of diabetes. Performed By: #### C RRSCN #### [facility] CLIA [id number] [address] [place] [address] Iron and Iron binding capaci ty panelon 08-26-2025 Iron [Mass/Vol] 87 ug/dL Normal 41-186 [facility] Comment on above: Order Comment: Speci men Type: BLOOD SPECIMENOrdering Facility: [facility] Address: [address] [place] [address] Performed By: #### 5 0190-8, 2276-4, 3016-3 ####[facility] LABCLIA [id number] [place] [address] [place] Iron binding capacity [Mass/Vol] 401 ug/dL High 232-386 [facility] Comment on above: Order Comment: Speci men Type: BLOOD SPECIMENOrdering Facility: [facility] Address: [address] [place] [address] Performed By: #### 5 0190-8, 6-4, 3015-3 ####[facility] LABCLIA [id number] [place] [id number] [place] Iron/TIBC [Molar ratio] 21.7 % Normal 15.0-57.0 C [facility] Comment on above: Order Comment: Speci men Type: BLOOD SPECIMENOrdering Facility: [facility] Address: [address] [place] [address] Performed By: #### 5 0190-8, 64, 3 ####[facility] LABCLIA [id number] [place] [address] [place] TSH SerPl-aCncon 08-26-2025 TSH Qn 1.400 m[IU]/L Normal 0.270-4.200 [facility] Comment on above: Order Comment: Speci men Type: BLOOD SPECIMENOrdering Facility: [facility] Address: [address] [place] [address] Result Comment: If t he patient is , TSH reference range varies by gestational period: First Trimester (weeks 9-12): 0.180-2.990 mIU/L Second Trimester: 0.110-3.980 mIU/L Third Trimester: 0.480-4.710 mIU/L Charles Cuevas et al. A Practical Approach for the Verifications and Determination of Site- and Trimester-Specific Reference Intervals for Thyroid Function tests in . Thyroid, 2019:29:3:412-420. El E, et al. 2017 Guidelines of the [place] Thyroid Association for the Diagnosis and Management of Thyroid Disease during and the . Thyroid, 2017:27:3:315-389. Performed By: #### 5 0190-8, 6-4, 3015-3 ####[facility] LABCLIA [id number] [place] [id number] [place] Vit B12 SerPl-mCncon 025 Cobalamin (Vitamin B12) [Mass/Vol] 494 pg/mL Normal 232-1245 [facility] Comment on above: Order Comment: Speci men Type: BLOOD SPECIMENOrdering Facility: [facility] Address: [address] [place] [address] Performed By: #### 2 132-9, 2284-8 ####[facility] MAIN LABCLIA [id number] [address] CNOVon 08-19-2025 CNOV Office Visit (INTMWS) FEDERICA FIGUEROA ([id number]) 1990 F Date Time Provider Department 08/19/25 2:00 PM MEAGHAN ESCOBAR INTMWS During your visit today, we recorded the following information about you: Pulse Respiration Blood pressure Weight 102/minute 12/minute 124/78 86.7 kg Height 1.545 m Meaghan Escobar, SANITATION WORKER CLEANING MACHINERY.RETAIL MERCHANDISING COORDINATOR 08/19/2025 2:57 PM Signed CC: Patient presents with: Establish Care: physical Recording using [employer] software for draft documentation of the visit was discussed with the patient/authorized healthcare sales representative; all questions welcomed and answered. Patient/authorized healthcare sales representative agreed to proceed HPI The patient is a 35-year-old female with a history of pulmonary embolism, anxiety, migraines, and PCOS, presenting to establish care along with concerns about numbness/tingling Paresthesia: - Numbness in fingers x 3 weeks; tongue and lips x 2 weeks - More frequent in fingers; less frequent in lips and tongue. - No specific time of day noted; more noticeable when driving. - Denies associated slurred speech, facial drooping, blurred vision, lightheadedness, dizziness, syncope, confusion, feeling faint, balance, or coordination issues. Pulmonary Embolism: - occurred during third trimester of - Currently on Lovenox BID. - Referral to hematology for management. Anxiety: - Well-managed; currently seeing a counselor. Migraines: - Chronic migraines occurring more than half the days of the week. - Managed holistically with hydration, rest, and pressure techniques. - Denies use of medications due to previous ineffectiveness and side effects. Iron Deficiency Anemia: - History of iron deficiency anemia, worsened during . - Undergoing lab work and follow-up appointment on September 02. - Received iron infusions during . PCOS: - Contributing to weight management challenges. Weight Management: - Struggles with weight loss, attributed to PCOS and previous episodes of depression. - Previously tried semaglutide and two other weight loss medications; discontinued due to side effects. - Currently pursuing a natural approach to weight management. Review of Systems Constitutional: Negative for chills, diaphoresis, fatigue, fever and unexpected weight change. Respiratory: Negative for cough, shortness of breath and wheezing. Cardiovascular: Negative for chest pain, palpitations and leg swelling. Neurological: Negative for tremors and weakness. PAST MEDICAL HISTORY Diagnosis Date Anxiety Atopic eczema Depression Group beta Strep positive 06/12/2025 June 12, 2025 Plan for Penicillin during labor. Naila Escobar APRN.RETAIL MERCHANDISING COORDINATOR History of depression 11/25/2024 November 25, 2024 Coping well at this time. PHQ2/TRINO negative To update throughout . Naila Escobar APRN.RETAIL MERCHANDISING COORDINATOR PCOS (polycystic ovarian syndrome) Penicillin allergy 11/25/2024 April 30, 2025 No pcn allergy, had testing- no IgE rxn. Ok to use pcns. See allergy consult from March 2025. Keyla Kay MD November 25, 2024 Consider Penicillin allergy consult. Naila Escobar APRN.RETAIL MERCHANDISING COORDINATOR Pulmonary embolism affecting (HCC) 06/17/2025 06/17/25 - on lovenox 100mg bid - Jamey Mcghee MD History reviewed. No pertinent surgical history. ALLERGIES Patient has no known allergies. MEDICATIONS albuterol HFA (PROVENTIL HFA, VENTOLIN HFA) 90 mcg/actuation inhaler Inhale 2-4 puffs as instructed every 2 hours as needed for wheezing/shortness of breath. enoxaparin (LOVENOX) 80 mg/0.8 mL Inject 0.8 mL subcutaneously every 12 hours. PNV no.95/ferrous fum/folic ac ( ORAL) Take 2 Pieces of gum by mouth once daily. ALBUTEROL INHALATION Inhale 2 Inhalations as instructed as needed (WHEEZING, SHORTNESS OF BREATH). FAMILY HISTORY Problem Relation Age of Onset Hypertension Mother Asthma Mother Allergic Rhinitis Mother No Known Problems Sister Alzheimer's Disease Maternal Grandmother SOCIAL HISTORY[1] BP 124/78 Pulse 102 Resp 12 Ht 154.5 cm (5' 0.83) Wt 86.7 kg (191 lb 2.2 oz) LMP 09/01/2024 (Exact Date) SpO2 97% BMI 36.32 kg/m? Physical Exam Vitals reviewed. Constitutional: Appearance: Normal appearance. Cardiovascular: Rate and Rhythm: Normal rate and regular rhythm. Heart sounds: Normal heart sounds. Pulmonary: Effort: Pulmonary effort is normal. Breath sounds: Normal breath sounds. No wheezing, rhonchi or rales. Skin: General: Skin is warm and dry. Neurological: General: No focal deficit present. Mental Status: She is alert and oriented to person, place, and time. Cranial Nerves: Cranial nerves 2-12 are intact. Sensory: Sensation is intact. Motor: Motor function is intact. Coordination: Coordination is intact. Gait: Gait is intact. Psychiatric: Mood and Affect: Mood normal. Assessment/Plan 1. Chronic migraine without aura wit (more content not included)... Normal [facility] 08-19-2025 [facility] Telephone (INTMWS) FEDERICA FIGUEROA ([id number]) 1990 F Date Time Provider Department 08/19/25 BESSY CURRY INTWS During your visit today, we recorded the following information about you: Felicita Rachel MA 08/19/2025 2:21 PM Addendum Patient was in office to [facility] care and was advised by HOSE OPERATOR office to see hemoc Continue LOVENOX 80 mg SQ every day- scheduled with hematology for follow up and plan of discontinuation Please call patient to schedule Pt. Is new to [facility] S[facility]ER [facility] Melissa 08/19/2025 4:06 PM Signed Please review and advise CONSULT TO HEMATOLOGY/ONCOLOGY Status: Needs Scheduling Requested appt date: Authorizing: Meaghan Escobar APRN.RETAIL MERCHANDISING COORDINATOR in [facility] Referral: [id number] (New Request) Expires: 08/19/2026 Priority: Routine Diagnosis: Pulmonary embolism affecting in third trimester (HCC) [O88.213] Genevieve Dumont 08/20/2025 9:02 AM Signed LVM for pt to call back and schedule new pt consult. Yudi Linn 08/26/2025 4:01 PM Signed Spoke with patient and scheduled Yudi Santiago Allergies As of Date: 08/19/2025 (No Known Allergies) Date Reviewed: 08/19/2025 Reviewed by: Meaghan Escobar APRN.RETAIL MERCHANDISING COORDINATOR - Fully Assessed Prescriptions as of 08/26/2025 - albuterol HFA (PROVENTIL HFA, VENTOLIN HFA) 90 mcg/actuation inhaler Inhale 2-4 puffs as instructed every 2 hours as needed for wheezing/shortness of breath. - enoxaparin (LOVENOX) 80 mg/0.8 mL Inject 0.8 mL subcutaneously every 12 hours. - PNV no.95/ferrous fum/folic ac ( ORAL) Take 2 Pieces of gum by mouth once daily. - ALBUTEROL INHALATION Inhale 2 Inhalations as instructed as needed (WHEEZING, SHORTNESS OF BREATH). Problem List As Of Date 08/19/2025 Noted Resolved Skin lesion of breast [L98.8] 11/25/2024 08/14/2025 Obesity affecting in second trimester*11/25/2024 08/14/2025 Asthma affecting in first trimester (*11/25/2024 08/14/2025 Supervision of high risk in second tr*11/25/2024 08/14/2025 Nausea and vomiting during (HCC) [O21*11/25/2024 08/14/2025 History of depression [Z86.59] 11/25/2024 08/19/2025 with uncertain dates in first trimest*11/25/2024 02/17/2025 Penicillin allergy [Z88.0] 11/25/2024 08/19/2025 Anemia complicating , first trimester *12/26/2024 08/14/2025 Back pain affecting (HCC) [O99.891, M*03/20/2025 08/14/2025 Maternal iron deficiency anemia complicating pr*05/20/2025 Polyhydramnios (HCC) [O40.9XX0] 06/05/2025 08/14/2025 Antepartum excessive growth (HCC) [O36.60*06/05/2025 08/14/2025 Group beta Strep positive [B95.1] 06/12/2025 08/19/2025 Pulmonary embolism affecting (HCC) [O*06/17/2025 08/14/2025 Chronic migraine without aura without status mi*08/19/2025 Pulmonary embolism affecting in third*08/19/2025 Generalized anxiety disorder [F41.1] 08/19/2025 PCOS (polycystic ovarian syndrome) [E28.2] 08/19/2025 Class 2 obesity due to excess calories without *08/19/2025 Numbness and tingling [R20.0, R20.2] 08/19/2025 Encounter Status:Closed by YUDI SANTIAGO on 08/26/25 [facility] Absolute lymphocyte countOrd ered By: Keyla Kay on 07-02-2025 Lymphocytes Auto (Unsp spec) [#/Vol] 1.54 10*3/uL 0.83-4.51 [facility] Absolute neutrophil countOrd ered By: Keyla Kay on 07-02-2025 Neutrophils (Bld) [#/Vol] 14.4 10*3/uL High 2.0-7.7 [facility] Automated lymphocyte count a s percentage of total leukocytesOrdered By: Keyla Kay on 07-02-2025 Lymphocytes/100 WBC Auto (Unsp spec) 9.0 % Low 19-41 [facility] Basophil percentageOrdered B y: Keyla Kay on 07-02-2025 Basophils/100 WBC (Bld) 0.2 % 0-1 [facility] Blood manual differential co mment interpretation (narrative result)Ordered By: Keyla Kay on 07-02-2025 Manual differential comment Virgilio (Bld) [Interp] SCANNED [facility] Comment on above: ANISOCYTOSIS 1+ Blood polychromasia detectio n by light microscopyOrdered By: Keyla Kay on 07-02-2025 Polychromasia LM Ql (Bld) RARE [facility] CBC W/Diff, Automatedon 09-0 SMEAR COMMENT SCANNED Normal [facility] Comment on above: Order Comment: Comme nts: First day Result Comment: ANIS OCYTOSIS 1+ Performed By: #### L [id number] #### [facility] [address] [place], [address] Anisocytosis Ql (Bld) 1+ Normal [facility] Comment on above: Order Comment: Comme nts: First day Performed By: #### L [id number] #### [facility] [address] [place], [address] OVALOCYTE RARE Normal [facility] Comment on above: Order Comment: Comme nts: First day Performed By: #### L [id number] #### [facility] [address] [place], [address] POLYCHROMASIA RARE Normal [facility] Comment on above: Order Comment: Comme nts: First day Performed By: #### L [id number] #### [facility] [address] [place], [address] Eosinophil percentageOrdered By: Keyla Kay on 07-02-2025 Eosinophils/100 WBC (Bld) 0.3 % 0-5 [facility] Erythrocyte distribution wid th ratioOrdered By: Keyla Kay on 07-02-2025 Erythrocyte distribution width (RBC) [Ratio] 25.0 % High 11.6-14.6 [facility] Erythrocyte distribution wid th standard deviationOrdered By: Keyla Kay on 07-02-2025 Erythrocyte distribution width (RBC) [Ratio] 69.0 fl High 35.1-43.9 [facility] Hematocrit Auto (Bld) [Volum e fraction]Ordered By: Keyla Kay on 07-02-2025 Hematocrit (Bld) [Volume fraction] 31.9 % Low 37-47 [facility] Hemoglobin measurementOrdere d By: Keyla Kay on 07-02-2025 Hemoglobin (Bld) [Mass/Vol] 10.2 g/dL Low 12.0-15.0 [facility] Immature granulocytes/100 WB C Auto (Bld)Ordered By: Keyla Kay on 07-02-2025 Immature granulocytes/100 WBC (Bld) 0.800 % 0.0-0.9 [facility] Comment on above: IG% - Immature Granu locytes (promyelocytes, myelocytes and metamyelocytes) > 1% indicates that a LEFT SHIFT is Present. L350.1820on 07-02-2025 Path. Sent [facility] SEE PATHOLOGY REPORT Normal [facility] Comment on above: Result Comment: Spec imen sent to [facility] Pathology Department. Report available in EMR. Performed By: #### L [id number] #### [facility] [address] [place] [address]. [place], [address] Laboratory - Hematology and Cell countsOrdered By: Keyla Kay on 07-02-2025 Anisocytosis Ql (Bld) 1+ [facility] MCV (mean corpuscular volume ) determinationOrdered By: Keyla Kay on 07-02-2025 MCV (RBC) [Entitic vol] 78.8 fL Low 81-99 [facility] Mean corpuscular hemoglobin (MCH) determinationOrdered By: Keyla Kay on 07-02-2025 MCH (RBC) [Entitic mass] 25.2 pg Low 27.0-32.0 [facility] Mean corpuscular hemoglobin concentration (MCHC) determinationOrdered By: Keyla Kay on 07-02-2025 MCHC (RBC) [Mass/Vol] 32.0 g/dL 32-36 [facility] Mean platelet volume determi nationOrdered By: Keyla Kay on 07-02-2025 Platelet mean volume (Bld) [Entitic vol] 8.5 fL 6.2-12.0 [facility] Monocyte percentageOrdered B y: Keyla Kay on 07-02-2025 Monocytes/100 WBC (Bld) 5.2 % 0-10 [facility] Neutrophil percentageOrdered By: Keyla Kay on 07-02-2025 Neutrophils/100 WBC (Bld) 84.5 % High 47-70 [facility] Nucleated red blood cell per centageOrdered By: Keyla Kay on 07-02-2025 Nucleated RBC/100 WBC (Bld) [Ratio] 0 % 0-5 [facility] Ovalocyte detectionOrdered B y: Keyla Kay on 07-02-2025 Ovalocytes LM Ql (Bld) RARE [facility] Pathology Specimen [facility] PATH. Spec OB SEE PATHOLOGY REPORT Normal [facility] Comment on above: Order Comment: Inter face Comments:Placenta to lab for studiesSend Results To: LabSend Specimen For (Specify): Studies @ [facility] Lab:RoutineTime of Procedure: 2244Date of Procedure: 07/01/25Reason specimen being sent to pathology (Hx/complications):possible abruptionType of specimen: PlacentaType of procedure performed: Other Result Comment: Spec imen submitted to Anatomical Pathology Department for testing. Performed By: #### L [id number] #### [facility] [address] [place], [address] Platelet countOrdered By: Lorna Kay on 07-02-2025 Platelets (Bld) [#/Vol] 230 10*3/uL 150-450 [facility] RBC Auto (Bld) [#/Vol]Ordere d By: Keyla Kay on 07-02-2025 RBC (Bld) [#/Vol] 4.05 10*6/uL Low 4.2-5.4 [facility] White blood cell (WBC) count Ordered By: Keyla Kay on 07-02-2025 WBC (Bld) [#/Vol] 17.0 10*3/uL High 4.4-11.0 [facility] CBC W/Diff, Automatedon Anisocytosis Ql (Bld) 2+ Normal [facility] Comment on above: Performed By: #### L [id number] #### [facility] [address] [place], [address] H AND P Exam - OB/GYNon H&P Exam - HOSE OPERATOR [facility] Medical Records Department [address] [place] [address] H P Exam - HOSE OPERATOR 07/01/25 1859 MR#: [id number] Acct: [id number] Name: FEDERICA FIGUEORA MARCH Rep #: [id number] : 1990 35 From: Keyla Kay MD PCP: Care Physician,No Primary Status:ADM IN Location: [id number] HPI - General General Date of Admission: 07/01/25 Date of Service: 07/01/25 Chief Complaint: induction HPI Narrative FEDERICA FIGUEROA, is a 35 F who presents 2 para 1 for induction of labor due to large for gestational age fetus. She denies any gross vaginal bleeding or leaking of fluid upon admission she has had some irregular contractions. Her has been complicated to date by LGA fetus, maternal obesity, anemia, polyhydramnios. She was dx w/ a PE on 06/13/25 and is on lovenox for this. She held her dose last night in anticipation of induction. Maternal Data Information Final CAROLYN: 07/07/25 Gestational age: 39 1/7 [facility] Medical History (Updated 07/01/25 @ 19:[address] Keyla Kay MD) Pulmonary embolism affecting in third trimester Infertility Asthma Depression Anxiety Headache Polyhydramnios Constipation Anemia Hemorrhoids Home Medications ???Medication ???Instructions ???Recorded ???Last Taken ???Type famotidine 20 mg tablet 20 mg PO BID GERD 06/09/25 5 22:30 History enoxaparin 100 mg subcut BID PE 07/01/2506/01 00:00 History Allergy/AdvReac Type Severity Reaction Status Date / Time No Known Allergies Allergy Verified 07/01/25 07:47 Social History Smoking Status: Never smoker alcohol intake: never substance use type: does not use History 2 Elective abortions Hx Para 1 Spontaneous abortions Hx # Term Pregnancies Ectopic pregnancies Hx # Pregnancies Multiple births # of living children ROS Constitutional Constitutional: Denies fatigue, fever(s) or malaise Eyes Eyes: Denies change in vision ENT HEENT: Denies dizziness or headache(s) Cardiovascular Cardiovascular: Denies chest pain, dyspnea or lightheadedness Respiratory/Chest Respiratory/Chest: Denies cough or dyspnea Gastrointestinal Gastrointestinal: Denies change in bowel habits Genitourinary Genitourinary: Denies burning urination or genital lesions Integumentary Integumentary: Denies rash Neurologic Neurologic: Denies confusion, dizziness, headache(s), numbness or weakness Vital Signs Vital Signs Vital Signs: 07/01/25 07:41 07/01/25 07:41 07/01/25 07:42 Temperature Temperature Source Pulse Rate 113 H Respiratory Rate Blood Pressure 117/76 BP Systolic 117 BP Diastolic 76 Pulse Ox 95 07/01/25 07:42 07/01/25 07:42 07/01/25 07:42 Temperature Temperature Source Temporal Pulse Rate 103 H Respiratory Rate 16 Blood Pressure BP Systolic BP Diastolic Pulse Ox 07/01/25 07:42 07/01/25 07:42 07/01/25 09:46 Temperature 97.4 F L Temperature Source Pulse Rate Respiratory Rate Blood Pressure 131/87 H BP Systolic 131 BP Diastolic 87 Pulse Ox 95 07/01/25 09:46 07/01/25 09:46 07/01/25 09:47 Temperature Temperature Source Temporal Pulse Rate 72 Respiratory Rate Blood Pressure BP Systolic BP Diastolic Pulse Ox 96 07/01/25 09:47 07/01/25 09:47 07/01/25 09:47 Temperature 97.2 F L Temperature Source Pulse Rate Respiratory Rate 16 Blood Pressure BP Systolic BP Diastolic Pulse Ox 96 07/01/25 10:47 07/01/25 10:47 07/01/25 10:47 Temperature Temperature Source Pulse Rate 71 Respiratory Rate Blood Pressure 128/81 H BP Systolic 128 BP Diastolic 81 Pulse Ox 93 07/01/25 10:48 07/01/25 10:48 07/01/25 10:48 Temperature Temperature Source Temporal Pulse Rate Respiratory Rate 18 Blood Pressure BP Systolic BP Diastolic Pulse Ox 95 07/01/25 10:48 07/01/25 11:53 07/01/25 11:53 Temperature 97.3 F L Temperature Source Pulse Rate 77 Respiratory Rate Blood Pressure 142/86 H BP Systolic 142 BP Diastolic 86 Pulse Ox 07/01/25 11:53 07/01/25 11:53 07/01/25 11:53 Temperature Temperature Source Temporal Pulse Rate Respiratory Rate 16 Blood Pressure BP Systolic BP Diastolic Pulse Ox 96 07/01/25 11:53 07/01/25 14:03 07/01/25 14:03 Temperature 97.1 F L Temperature Source Pulse Rate 94 Respiratory Rate Blood Pressure BP Systolic BP Diastolic Pulse Ox 97 07/01/25 14:04 07/01/25 14:04 07/01/25 14:05 Temperature Temperature Source Pu (more content not included)... Normal [facility] MR/OB.VAGDELIon 07-01-2025 MR/OB.VAGDELI [facility] Medical Records Department [address] [place] [address] OB Vaginal Delivery 07/01/25 2250 MR#: [id number] Acct: [id number] Name: FEDERICA FIGUEROA MARCH Rep #: [id number] : 1990 35 From: Keyla Kay MD PCP: Care Physician,No Primary Status:ADM IN Location: [id number] Assessment Plan (1) Obesity, Class II, BMI 35-39.9, isolated: (2) (spontaneous vaginal delivery): (3) Single live : (4) Maternal obesity affecting , antepartum: (5) Supervision of high risk in third trimester: COMMENT: Risk-benefit and alternatives to induction of labor discussed with patient her questions were answered to her satisfaction consent was signed and she desires to proceed. Will proceed with [place] with Pitocin and artificial rupture membranes as needed. May have routine pain control measures as needed. Estimated weight is approximately 4000 g. Pelvis clinically adequate to expect vaginal delivery. (6) 39 weeks gestation of : Maternal Data Information Final CAROLYN: 07/07/25 Gestational age: 39 1/7 Vaginal Delivery Maternal Presentation Maternal Presentation: Medically Indicated Induction Type of Induction: Pitocin, Barksdale Bulb and Amniotomy Vaginal Delivery Information Procedure Performed: Spontaneous Vaginal Delivery Surgeon/Practitioner : Keyla Kay Date of Procedure: 07/01/25 Pre-Procedure Diagnosis: labor Post-Procedure Diagnosis: same Type of anesthesia: Epidural Special Medications: none Estimated Blood Loss: 300 Time of Delivery: 22:28 Findings Description of procedure: A vigorous female was delivered THEA over a second-degree perineal laceration. A tight nuchal cord x 3 was reduced. The remainder the was delivered with maternal pushing and gentle traction only in less than 15 seconds. The Pitocin infusion was initiated for active management of the third stage. The cord was clamped and cut after approximately 15 seconds so the infant could be handed off to the warmer for evaluation. The was attended to by the waiting nursing staff. The placenta was delivered spontaneously and intact. The cervix and vagina were intact. The second-degree perineal laceration was repaired with 3-0 Vicryl suture in a running standard fashion. Sponge and needle counts were correct. A vaginal sweep was completed by me. Procedure findings: Vigorous female infant Presentation: THEA Amniotic Membrane Rupture Type: Artificial Amniotic Fluid Description: Clear Placental Delivery Description: Spontaneous Placenta Disposition: [facility] Specimen collected: Yes Description of specimen(s) removed: Placenta Cord Vessel Description: 3 Vessels Cord Entanglement: Other (around neck x 3 tight) Nuchal Cord Compression: With compression Cord Gases: ABG and VBG Infant A Gender: Female (Dali) (1 minute): 8 (5 minute): 9 Delayed Cord Clamping: No [employer] jewish thought professor: No Post Vaginal Deli Medications given after delivery: IV Pitocin Episiotomy Description: None Laceration: None Complication Complications: No 07/01/25 0841 Cosigner Signature (if applicable): CC: Dr. Keyla Kay MD; No Primary Care Physician Signed [facility] SURG PATH REQUESTon 07-01-20 Case Report Normal [facility] Comment on above: Result Comment: Surg [facility] Pathology Report Case: [id number] Authorizing Provider: Keyla Kay MD Collected: 07/01/2025 10:28 PM Ordering [facility] Received: 07/02/2025 05:31 PM [facility] Pathologist: Jason Bee MD Specimen: Placenta third trimester Performed By: #### S URGP #### [facility] (DEFAULT) [address] [place] [address] Clinical History OB History: . Gestational Age: 39 weeks + 1 day. Sex: Female. Total at 1 minute: 8. Total at 5 minute: 9. Weight: 3295 grams. Reason for Examination: Maternal anemia. Hemorrhoids. Polyhydramnios, maternal pulmonary embolus. Normal [facility] Comment on above: Performed By: #### S URGP #### [facility] (DEFAULT) [address] [place] [address] Gross Description Normal [facility] Comment on above: Result Comment: The specimen is received in one properly labeled container with the patient's name and accession number. A. The specimen is designated placenta and consists of a discoid, price placenta with attached membranes and umbilical cord. The disc has dimensions of 18.3 x 16.5 x 3.0 cm, with an attached 9.5 x 4.9 x 1.7 cm accessory lobe. The disc has a trimmed weight of 645.0 grams. The membranes are pale marks, semi-translucent, with a marginal insertion on the disc, and no distinct areas of thickening or lesions. The surface of the disc is purple-rousseau, glistening, with the usual arborizing vasculature, and little to no distinct subchorionic fibrin deposition. The attached umbilical cord inserts centrally on the disc and is 46.2 cm in length with an average diameter of 1.4 cm. The cord has five twists per 10 cm, and three vessels throughout, and there is no true knot present, and no gross evidence of hemorrhage or thrombosis. The maternal surface of the placental disc is dark purple-red, lobulated, and intact, with some scattered calcifications. There is no adherent blood clot or other gross evidence of possible abruption. Sectioning through the disc reveals a dark purple-red, spongy cut surface with no distinct lesions identified. RS 4 Cassettes: A1, membranes and umbilical cord; A2-A3, full-thickness placental disc; A4, additional maternal surface Lab Use Only: JobID [id number] Grosser for this case was: Shruthi Montes De Oca Performed By: #### S URGP #### [facility] (DEFAULT) [address] [place] [address] Microscopic Description A microscopic examination was performed. [facility] Comment on above: Performed By: #### S URGP #### [facility] (DEFAULT) [address] [place] [address] Pathologic Diagnosis Normal [facility] Comment on above: Result Comment: Maldonado Bustamante lacsudha: Umbilical cord: Three vessels, no significant inflammation. Membranes: No significant inflammation. Third trimester placenta (formalin fixed weight: 645 grams): Microcalcifications. at 1633 EDT Performed By: #### S URGP #### [facility] (DEFAULT) [address] [place] [address] Professional Interpretation Performed at: Normal [facility] Comment on above: Result Comment: [facility] For Immediate Release to [facility]'s [facility]? Yes [address] [address] Performed By: #### S URGP #### [facility] (DEFAULT) [address] [address] Syphilis Antibodieson 2024 Syphilis Abs Non-Reactive Normal Nonreactive [facility] Comment on above: Performed By: #### L 500.9000 #### [facility] [address] [facility] [place], [place], [address] Type AND Screenon 07-01-2025 Ab SCREEN GEL Negative Normal [facility] Comment on above: Order Comment: Labor Performed By: #### L [id number] #### [facility] [address] [facility] [place], [place], [address] URINE OB DIP B/Oon 5 Glucose Ql (U) Negative Neg mg/dL [facility] Protein.monoclonal (U) [Mass/Vol] trace Neg mg/dL [facility] Examination level ultrasound on 06-24-2025 [facility] CNPNon 06-23-2025 CNPN Telephone (OBGYWM) FEDERICA FIGUEROA ([id number]) 1990 F Date Time Provider Department 06/23/25 SHERYL BEJARANO During your visit today, we recorded the following information about you: Sheryl Bejarano APRN.CNM 06/23/2025 3:58 PM Signed Patient did not have BPP completed. Can you please see if she can come in this week for an NST? I sincerely apologize and didn't realize it was not done. Thank you, Sheryl Bejarano APRN.Norma Campos RN 06/23/2025 4:12 PM Signed Patient called and NST scheduled. Norma Stallings RN Allergies As of Date: 06/23/2025 (No Known Allergies) Date Reviewed: 06/23/2025 Reviewed by: Marco Antonio Ness LPN - Fully Assessed Reason for Visit: Nst (Non Stress Test) [2013] Prescriptions as of 06/23/2025 - enoxaparin (LOVENOX) 100 mg/mL syrg Inject 0.975 mL subcutaneously every 12 hours. - blood sugar diagnostic (BLOOD GLUCOSE TEST) test strip Use with blood glucose test four times a day. Insulin Dep? No - Lancets Use with blood glucose test four times a day. Insulin Dep? No - Blood-Glucose Meter (ULTIMA MONITOR) Use as directed 4 times daily - ferrous sulfate 325 mg (65 mg iron) tablet Take 1 tablet by mouth every other day. - famotidine (PEPCID) 20 mg tablet Take 1 tablet by mouth two times a day. - PNV no.95/ferrous fum/folic ac ( ORAL) Take 2 Pieces of gum by mouth once daily. - ALBUTEROL INHALATION Inhale 2 Inhalations as instructed as needed (WHEEZING, SHORTNESS OF BREATH). Problem List As Of Date 06/23/2025 Noted Resolved Skin lesion of breast [L98.8] 11/25/2024 Obesity affecting in second trimester*11/25/2024 Asthma affecting in first trimester [*11/25/2024 Supervision of high risk in second tr*11/25/2024 Nausea and vomiting during [O21.9] 11/25/2024 History of depression [Z86.59] 11/25/2024 with uncertain dates in first trimest*11/25/2024 02/17/2025 Penicillin allergy [Z88.0] 11/25/2024 History of migraine headaches [Z86.69] 12/23/2024 Anemia complicating , first trimester *12/26/2024 Back pain affecting (HCC) [O99.891, M*03/20/2025 Maternal iron deficiency anemia complicating pr*05/20/2025 Polyhydramnios (HCC) [O40.9XX0] 06/05/2025 Antepartum excessive growth (HCC) [O36.60*06/05/2025 Group beta Strep positive [B95.1] 06/12/2025 Pulmonary embolism affecting (HCC) [O*06/17/2025 Encounter Status:Closed by NORMA STALLINGS on 06/23/25 Normal [facility] Examination level ultrasound on 06-23-2025 Radiology Study observation (narrative) [facility] URINE OB DIP B/Oon 5 Glucose Ql (U) Negative Neg mg/dL [facility] Interpretation and review of laboratory results Abnormal [facility] Protein.monoclonal (U) [Mass/Vol] 30 mg/dL Abnormal Neg [facility] URINE OB DIP B/Oon 5 Glucose Ql (U) Negative Neg mg/dL [facility] Interpretation and review of laboratory results Normal [facility] Protein.monoclonal (U) [Mass/Vol] Negative Neg mg/dL [facility] OB Triage Physician Noteon 0 06-15-2025 OB Triage Physician Note [facility] Medical Records Department [address] [place] [address] OB Triage Physician Note 06/15/25 1718 MR#: [id number] Acct: [id number] Name: FEDERICA FIGUEROA ANGELIC Rep #: [id number] : 1990 35 From: Kerry Paniagua MD PCP: Care Physician,No Primary Status:DEP CLI Y Location: [facility] [place] HPI - General General Date of Admission: 06/13/25 Date of Service: 06/13/25 Chief Complaint: Acute PE HPI Narrative FEDERICA FIGUEROA, is a 35 F who presents to ED with Chest pain, Headache. Diagnosed with an acute PE and started on Lovenox. Sent to for monitoring. PRE E labs negative except for pr/cr of 390. Normal BPS. Pt sent home with 24 hour urine collection. Planned IOL at 39 for poly. Maternal Data Information Final CAROLYN: 07/07/25 Gestational age: 36+4 PFSH PFSH Medical History Polyhydramnios Constipation Anemia Hemorrhoids Home Medications ???Medication ???Instructions ???Recorded ???Last Taken ???Type famotidine 20 mg tablet 20 mg PO BID GERD 06/09/25 Unknown History albuterol 90 mcg/actuation aerosol 90 mcg inhalation PRN asthma 06/13/25 History inhaler Allergy/AdvReac Type Severity Reaction Status Date / Time No Known Allergies Allergy Verified 06/13/25 14:08 Social History Smoking Status: Never smoker alcohol intake: never substance use type: does not use History 2 Elective abortions Hx Para 1 Spontaneous abortions Hx # Term Pregnancies Ectopic pregnancies Hx # Pregnancies Multiple births # of living children NST FHR Rate Baby A Baseline: 125 Variability:: Moderate Accelerations:: 15 x 15 Decelerations:: None NST Reactive:: Yes Assessment Plan (1) Pulmonary embolus: QUALIFIERS: Chronicity: acute Acute cor pulmonale presence: without acute cor pulmonale Pulmonary embolism type: other Qualified Code(s): I26.99 - Other pulmonary embolism without acute cor pulmonale (2) 36 weeks gestation of : (3) Proteinuria affecting in third trimester: PLAN: Plan Bringing 24 hour urine to office. Rx of Lovenox sent to pharmacy. Has appointment in office on 06/17/25 06/15/25 2472 Date Kerry Paniagua MD Cosigner Signature (if applicable): Date _ CC: Dr. Kerry Paniagua MD; No Primary Care Physician Signed Normal [facility] CBC W/Diff, Automatedon 08-1 Absolute Neut Normal 2.0-7.7 [facility] Comment on above: Result Comment: Canc elled via OM: Order cancelled - Patient discharged Performed By: #### L 501.4021 #### [facility] [address] [place], [address] HCT Normal 37-47 [facility] Comment on above: Result Comment: Canc elled via OM: Order cancelled - Patient discharged Performed By: #### L 501.4021 #### [facility] [address] [place], [address] HGB Normal 12.0-15.0 [facility] Comment on above: Result Comment: Canc elled via OM: Order cancelled - Patient discharged Performed By: #### L 501.4021 #### [facility] [address] [place], [address] MCH Normal 27.0-32.0 [facility] Comment on above: Result Comment: Canc elled via OM: Order cancelled - Patient discharged Performed By: #### L 501.4021 #### [facility] [address] [place], [address] MCHC Normal 32-36 [facility] Comment on above: Result Comment: Canc elled via OM: Order cancelled - Patient discharged Performed By: #### L 501.4021 #### [facility] [address] [place], [address] MCV Normal 81-99 [facility] Comment on above: Result Comment: Canc elled via OM: Order cancelled - Patient discharged Performed By: #### L 501.4021 #### [facility] [address] [place], [address] NEUT% Normal 47-70 [facility] Comment on above: Result Comment: Canc elled via OM: Order cancelled - Patient discharged Performed By: #### L 501.4021 #### [facility] [address] [place], [address] PLT Normal 150-450 [facility] Comment on above: Result Comment: Canc elled via OM: Order cancelled - Patient discharged Performed By: #### L 501.4021 #### [facility] [address] [place], [address] RBC Normal 4.2-5.4 [facility] Comment on above: Result Comment: Canc elled via OM: Order cancelled - Patient discharged Performed By: #### L 501.4021 #### [facility] [address] [place], [address] RDW CV Normal 11.6-14.6 [facility] Comment on above: Result Comment: Canc elled via OM: Order cancelled - Patient discharged Performed By: #### L 501.4021 #### [facility] [address] [place], [address] RDW SD Normal 35.1-43.9 [facility] Comment on above: Result Comment: Canc elled via OM: Order cancelled - Patient discharged Performed By: #### L 501.4021 #### [facility] [address] [place], [address] WBC Normal 4.4-11.0 [facility] Comment on above: Result Comment: Canc elled via OM: Order cancelled - Patient discharged Performed By: #### L 501.4021 #### [facility] [address] [place], [address] Protein, Urine 24HRon 2024 24hr UR PROTEIN Normal <150 MG/24HR [facility] Comment on above: Result Comment: This specimen has been REJECTED due to Laboratory criteria: Wrong Tube/Container. DOCTOR'S OFFICE has been notified of need of recollection. 06/16/25928 Peter Armendarizr Performed By: #### L 500.9000 #### [facility] [address] [place], [address] Protein Ql (U) Normal <11.9 [facility] Comment on above: Result Comment: This specimen has been REJECTED due to Laboratory criteria: Wrong Tube/Container. DOCTOR'S OFFICE has been notified of need of recollection. 06/16/25928 Peter Armendarizr Performed By: #### L 500.9000 #### [facility] [address] [place], [address] UR COLLECT TIME Normal 24.0 [facility] Comment on above: Result Comment: This specimen has been REJECTED due to Laboratory criteria: Wrong Tube/Container. DOCTOR'S OFFICE has been notified of need of recollection. 06/16/25928 Peter Armendarizr Performed By: #### L 500.9000 #### [facility] [address] [place], [address] UR TOTAL VOLUME Normal [facility] Comment on above: Result Comment: This specimen has been REJECTED due to Laboratory criteria: Wrong Tube/Container. DOCTOR'S OFFICE has been notified of need of recollection. 06/16/25928 Peter Armendarizr Performed By: #### L 500.9000 #### [facility] [address] [place], [address] 12 Lead EKGon 06-13-2025 12 Lead EKG [facility] [address] [place] [address] 12 Lead EKG 06/13/25 1026 MR#: [id number] Acct: [id number] Name: CAROLINAFEDERICA MAAMEPooja ATWOOD Rep #: [id number] : 1990 35 From: Glenn Peterson MD Attending Dr: Dr. Kerry Paniagua MD Status: D EP CLI Ordering Dr: Gonzalez Barreto MD Date: 06/13/25 Location: [facility] [place] Sex: F C Admitted: Test Reason : GENERAL Blood Pressure : */* mmHG Vent. Rate : 109 BPM Atrial Rate : 109 BPM P-R Int : 136 ms QRS Dur : 66 ms QT Int : 332 ms P-R-T Axes : 27 9 33 degrees QTcB Int : 447 ms Sinus tachycardia Otherwise normal ECG Confirmed by MORIAH COLLADO, GLENN ([id number]), editor greeting card ANGELA PEREZ ([id number]) on 06/16/2025 9:14:55 AM Referred By: Kerry Paniagua Confirmed By: GLENN PETERSON MD 06/16/25913 Date Glenn Peterson MD CC: Dr. Kerry Paniagua MD; Dr. Gonzalez Barreto MD; No Primary Care Physician Signed Normal [facility] Absolute lymphocyte countOrd ered By: Gonzalez Barreto on 06-13-2025 Lymphocytes Auto (Unsp spec) [#/Vol] 0.55 10*3/uL Low 0.83-4.51 [facility] Absolute neutrophil countOrd ered By: Gonzalez Barreto on 06-13-2025 Neutrophils (Bld) [#/Vol] 9.9 10*3/uL High 2.0-7.7 [facility] Activated partial thrombopla stin time (aPTT) in platelet poor plasma by coagulation aOrdered By: Gonzalez Barreto on 06-13-2025 aPTT Coag (PPP) [Time] 24.7 s 24.1-36.2 [facility] Anion gap in Serum or Plasma Ordered By: Gonzalez Barreto on 06-13-2025 Anion gap [Moles/Vol] 14 mmol/L - [facility] Automated lymphocyte count a s percentage of total leukocytesOrdered By: Gonzalez Barreto on 06-13-2025 Lymphocytes/100 WBC Auto (Unsp spec) 5.1 % Low 19-41 [facility] BUN/creatinine ratioOrdered By: Gonzalez Barreto on 06-13-2025 Urea nitrogen/Creatinine [Mass ratio] 11.7 mg/mg 10-20 [facility] Basophil percentageOrdered B y: Gonzalez Barreto on 06-13-2025 Basophils/100 WBC (Bld) 0.2 % 0-1 [facility] Bilirubin, totalOrdered By: Gonzalez Barreto on 06-13-2025 Bilirubin [Mass/Vol] 0.43 mg/dL 0.00-1.30 [facility] Blood manual differential co mment interpretation (narrative result)Ordered By: Gonzalez Barreto on 06-13-2025 Manual differential comment Virgilio (Bld) [Interp] COMMENT [facility] Comment on above: LYMPHOPENIA. CBC W/Diff, Automatedon 05-30 Absolute Neut Normal 2.0-7.7 [facility] Comment on above: Order Comment: Comme nts: If not done in prior 24 hours Result Comment: CANC ELLED PER PATIENT NURSE. Performed By: #### L 300.4310, L100.0100, L300.3900 #### [facility] [address] [place], [address] HCT Normal 37-47 [facility] Comment on above: Order Comment: Comme nts: If not done in prior 24 hours Result Comment: CANC ELLED PER PATIENT NURSE. Performed By: #### L 300.4310, L100.0100, L300.3900 #### [facility] [address] [place], [address] HGB Normal 12.0-15.0 [facility] Comment on above: Order Comment: Comme nts: If not done in prior 24 hours Result Comment: CANC ELLED PER PATIENT NURSE. Performed By: #### L 300.4310, L100.0100, L300.3900 #### [facility] [address] [place], [address] MCH Normal 27.0-32.0 [facility] Comment on above: Order Comment: Comme nts: If not done in prior 24 hours Result Comment: CANC ELLED PER PATIENT NURSE. Performed By: #### L 300.4310, L100.0100, L300.3900 #### [facility] [address] [place], [address] MCHC Normal 32-36 [facility] Comment on above: Order Comment: Comme nts: If not done in prior 24 hours Result Comment: CANC ELLED PER PATIENT NURSE. Performed By: #### L 300.4310, L100.0100, L300.3900 #### [facility] [address] [place], [address] MCV Normal 81-99 [facility] Comment on above: Order Comment: Comme nts: If not done in prior 24 hours Result Comment: CANC ELLED PER PATIENT NURSE. Performed By: #### L 300.4310, L100.0100, L300.3900 #### [facility] [address] [place], [address] NEUT% Normal 47-70 [facility] Comment on above: Order Comment: Comme nts: If not done in prior 24 hours Result Comment: CANC ELLED PER PATIENT NURSE. Performed By: #### L 300.4310, L100.0100, L300.3900 #### [facility] [address] [place], [address] PLT Normal 150-450 [facility] Comment on above: Order Comment: Comme nts: If not done in prior 24 hours Result Comment: CANC ELLED PER PATIENT NURSE. Performed By: #### L 300.4310, L100.0100, L300.3900 #### [facility] [address] [place], [address] RBC Normal 4.2-5.4 [facility] Comment on above: Order Comment: Comme nts: If not done in prior 24 hours Result Comment: CANC ELLED PER PATIENT NURSE. Performed By: #### L 300.4310, L100.0100, L300.3900 #### [facility] [address] [place], [address] RDW CV Normal 11.6-14.6 [facility] Comment on above: Order Comment: Comme nts: If not done in prior 24 hours Result Comment: CANC ELLED PER PATIENT NURSE. Performed By: #### L 300.4310, L100.0100, L300.3900 #### [facility] [address] [place], [address] RDW SD Normal 35.1-43.9 [facility] Comment on above: Order Comment: Comme nts: If not done in prior 24 hours Result Comment: CANC ELLED PER PATIENT NURSE. Performed By: #### L 300.4310, L100.0100, L300.3900 #### [facility] [address] [place], [address] WBC Normal 4.4-11.0 [facility] Comment on above: Order Comment: Comme nts: If not done in prior 24 hours Result Comment: CANC ELLED PER PATIENT NURSE. Performed By: #### L 300.4310, L100.0100, L300.3900 #### [facility] [address] [place], [address] Anisocytosis Ql (Bld) 1+ Normal [facility] Comment on above: Performed By: #### L 503.6005, L503.7505, L500.4050, L100.0100 #### [facility] [address] [place], [address] SMEAR COMMENT COMMENT Normal [facility] Comment on above: Result Comment: LYMP HOPENIA. Performed By: #### L 503.6005, L503.7505, L500.4050, L100.0100 #### [facility] [address] [place], [address] Jose 06-13-2025 [facility] Telephone (OBGYWM) FEDERICA FIGUEROA ([id number]) 1990 F Date Time Provider Department 06/13/25 KERRY PANIAGUA OBGYWM During your visit today, we recorded the following information about you: Andrea Gaxiola RN 06/13/2025 9:21 AM Signed Patient is 36w4d. States for the last hour Ijust don't feel right. Hx of anemia-finished infusions recently. Hx of asthma. States she is short of breath , seeing black and white spots, hands jesica, headaches that she rates a 5 on the pain scale, cramping and back pain. Denies any epigastric pain. Has not noted movement this morning. Baby was active last night. Discussed with Dr Paniagua-automation qa tester physician. Patient sent to hospital Charge nurse at [facility] notified. is home with patient and will drive her. Records faxed to [facility]. Tricia Perez RN 06/16/2025 10:54 AM Signed 37w0d Sean Mackenzie, from [facility] lab called, stating Pt was given wrong 24 hour collection container as it contained Hydrochloric acid and the container should have no additive. States urine will need to be re-collected if needing 24 hr protein urine results. Please advise in JG absence. ROYER Domínguez Lindsey, RN 06/17/2025 9:07 AM Signed FYI-Patient has appointment with you today. This wasn't addressed yesterday. Will need a new order. Norma Stallings RN Allergies As of Date: 06/13/2025 (No Known Allergies) Date Reviewed: 06/10/2025 Reviewed by: Romy Zamorano MA - Fully Assessed Reason for Visit: Headache in [Other] Prescriptions as of 06/17/2025 - enoxaparin (LOVENOX) 100 mg/mL syrg Inject 0.975 mL subcutaneously every 12 hours. - blood sugar diagnostic (BLOOD GLUCOSE TEST) test strip Use with blood glucose test four times a day. Insulin Dep? No - Lancets Use with blood glucose test four times a day. Insulin Dep? No - Blood-Glucose Meter (ULTIMA MONITOR) Use as directed 4 times daily - ferrous sulfate 325 mg (65 mg iron) tablet Take 1 tablet by mouth every other day. - famotidine (PEPCID) 20 mg tablet Take 1 tablet by mouth two times a day. - PNV no.95/ferrous fum/folic ac ( ORAL) Take 2 Pieces of gum by mouth once daily. - ALBUTEROL INHALATION Inhale 2 Inhalations as instructed as needed (WHEEZING, SHORTNESS OF BREATH). Problem List As Of Date 06/13/2025 Noted Resolved Skin lesion of breast [L98.8] 11/25/2024 Obesity affecting in second trimester*11/25/2024 Asthma affecting in first trimester [*11/25/2024 Supervision of high risk in second tr*11/25/2024 Nausea and vomiting during [O21.9] 11/25/2024 History of depression [Z86.59] 11/25/2024 with uncertain dates in first trimest*11/25/2024 02/17/2025 Penicillin allergy [Z88.0] 11/25/2024 History of migraine headaches [Z86.69] 12/23/2024 Anemia complicating , first trimester *12/26/2024 Back pain affecting (HCC) [O99.891, M*03/20/2025 Maternal iron deficiency anemia complicating pr*05/20/2025 Polyhydramnios (HCC) [O40.9XX0] 06/05/2025 Antepartum excessive growth (HCC) [O36.60*06/05/2025 Group beta Strep positive [B95.1] 06/12/2025 Encounter Status:Closed by ANDREA GAXIOLA on 06/13/25 [facility] CTA Chest W/WO Contraston CTA Chest W/WO Contrast [facility] [address] [place], [place] [id number] CTA Chest W/WO Contrast MR#: [id number] Acct: [id number] Name: FEDERICA FIGUEROA MARCH Rep #: [id number] : 1990 F 35 From: Shahzad vargas MD PCP: Care Physician,No Primary Status: REG ER Study: CTA Chest W/WO Contrast Date of Exam: 06/13/25 Exam# [id number] Ordering Dr: Gonzalez Barreto MD PROCEDURE: CTA CHEST W/WO CONTRAST 06/13/2025 REASON FOR EXAM: ACUTE DYSPNEA, TACHYCARDIA, THIRD TRIMESTER PREGNA Patient is well shielded. TECHNIQUE: CTA CHEST W/WO CONTRAST Multiplanar Sagittal and Coronal images were obtained. 3D post processing was performed CONTRAST: Isovue 370 VOLUME: 100 mL One or more dose reduction techniques were used (e.g., Automated exposure control, adjustment of the mA and/or kV according to patient size, use of iterative reconstruction technique). RADIATION DOSE SUMMARY: CTDlvol: 22 mGy DLP: 436.13 mGycm COMPARISON: None FINDINGS: Hardware: None Lymph nodes: Small benign-appearing bilateral axillary lymph nodes. Heart: The heart is not enlarged. No coronary artery calcification is seen. Thoracic Aorta: No thoracic aortic aneurysm or dissection. Pulmonary Vessels: Tiny nonocclusive intraluminal filling defects seen in the proximal branch of the right interlobar artery as seen on coronal image number 156 and axial image number 97 Most Proximal Level of Embolus (if embolus present): Lungs and Airways: Lungs are clear. Pleura: No pleural effusion. Upper Abdomen: Diffuse fatty infiltration of the liver. Bones: Bone windows are unremarkable. CT/CTA Chest W/WO Contrast IMPRESSION: Single nonocclusive intraluminal filling defect is seen in the proximal branch of the right interlobar pulmonary artery as seen on axial image number 97 and coronal image number 156 Reading Location: [facility] CC: Dr. Gonzalez Barreto MD; No Primary Care Physician Course Instructor: Signed Normal [facility] Carbon dioxide, total [Moles /volume] in Central venous bloodOrdered By: Gonzalez Barreto on 06-13-2025 CO2 [Moles/Vol] 18.3 mmol/L Low 21.0-32.0 [facility] Chloride assayOrdered By: Sofi Barreto on 06-13-2025 Chloride [Moles/Vol] 103 mmol/L 98-108 [facility] Comprehensive Metabolic Prof ilon 06-13-2025 Albumin [Mass/Vol] 3.5 g/dL Normal 3.5-5.0 [facility] Comment on above: Performed By: #### L 503.6005, L503.7505, L500.4050, L100.0100 #### [facility] [address] [place], [address] Albumin/Globulin [Mass ratio] 1.2 {ratio} Normal 0.9-2.4 [facility] Comment on above: Performed By: #### L 503.6005, L503.7505, L500.4050, L100.0100 #### [facility] [address] [place], [address] ALK PHOS 90 U/L Normal 35-104 [facility] Comment on above: Performed By: #### L 503.6005, L503.7505, L500.4050, L100.0100 #### [facility] [address] [place], [address] ALT [Catalytic activity/Vol] U/L Normal <=34 [facility] Comment on above: Performed By: #### L 503.6005, L503.7505, L500.4050, L100.0100 #### [facility] [address] [place], [address] AST [Catalytic activity/Vol] 13 U/L Normal <=31 [facility] Comment on above: Performed By: #### L 503.6005, L503.7505, L500.4050, L100.0100 #### [facility] [address] [place], [address] Bilirubin [Mass/Vol] 0.43 mg/dL Normal 0.00-1.30 [facility] Comment on above: Performed By: #### L 503.6005, L503.7505, L500.4050, L100.0100 #### [facility] [address] [place], [address] BUN/CRE 11.7 RATIO Normal 10-20 [facility] Comment on above: Performed By: #### L 503.6005, L503.7505, L500.4050, L100.0100 #### [facility] [address] [place], [address] Calcium [Mass/Vol] 9.3 mg/dL Normal 7.6-11.0 [facility] Comment on above: Performed By: #### L 503.6005, L503.7505, L500.4050, L100.0100 #### [facility] [address] [place], [address] Chloride [Moles/Vol] 103 mmol/L Normal 98-108 [facility] Comment on above: Performed By: #### L 503.6005, L503.7505, L500.4050, L100.0100 #### [facility] [address] [place], [address] CO2 [Moles/Vol] 18.3 mmol/L Low 21.0-32.0 [facility] Comment on above: Performed By: #### L 503.6005, L503.7505, L500.4050, L100.0100 #### [facility] [address] [place], [address] Creatinine [Mass/Vol] 0.46 mg/dL Low 0.70-1.20 [facility] Comment on above: Performed By: #### L 503.6005, L503.7505, L500.4050, L100.0100 #### [facility] [address] [place], [address] ECRCL 201.67 ml/min Normal 50-250 [facility] Comment on above: Performed By: #### L 503.6005, L503.7505, L500.4050, L100.0100 #### [facility] [address] [place], [address] GAP 14 Normal 5-15 [facility] Comment on above: Performed By: #### L 503.6005, L503.7505, L500.4050, L100.0100 #### [facility] [address] [place], [address] GFR/1.73 sq M.predicted among non-blacks MDRD (S/P/Bld) [Vol rate/Area] 129 mL/min/{1.73_m2} Normal >60 [facility] Comment on above: Result Comment: mL/m in/1.73m2 CKD-EPI Creatinine Equation (2020) Performed By: #### L 503.6005, L503.7505, L500.4050, L100.0100 #### [facility] [address] [place], [address] Globulin (S) [Mass/Vol] 2.9 g/dL Normal 2.2-4.2 [facility] Comment on above: Performed By: #### L 503.6005, L503.7505, L500.4050, L100.0100 #### [facility] [address] [place], [address] Glucose [Mass/Vol] 75 mg/dL Normal 70-99 [facility] Comment on above: Performed By: #### L 503.6005, L503.7505, L500.4050, L100.0100 #### [facility] [address] [place], [address] Potassium [Moles/Vol] 3.6 mmol/L Normal 3.3-5.1 [facility] Comment on above: Performed By: #### L 503.6005, L503.7505, L500.4050, L100.0100 #### [facility] [address] [place], [address] Sodium [Moles/Vol] 136 mmol/L Normal 133-145 [facility] Comment on above: Performed By: #### L 503.6005, L503.7505, L500.4050, L100.0100 #### [facility] [address] [place], [address] T PROT 6.4 g/dL Normal 5.9-8.4 [facility] Comment on above: Performed By: #### L 503.6005, L503.7505, L500.4050, L100.0100 #### [facility] [address] [place], [address] Urea nitrogen [Mass/Vol] 5 mg/dL Normal 4-19 [facility] Comment on above: Performed By: #### L 503.6005, L503.7505, L500.4050, L100.0100 #### [facility] [address] [place], [address] Emergency Department Summary on 06-13-2025 Emergency Department Summary [facility] Medical Records Department [address] [place] [address] [place] [address] Emergency Department Summary 06/13/25 MR#: [id number] Acct: [id number] Name: FEDERICA FIGUEROA MARCH Rep #: [id number] : 1990 35 From: Gonzalez Barreto MD PCP: Care Physician,No Primary Status:ADM IN Location: [id number] HPI HPI - Female History of Present Illness Chief Complaint: Informant: patient and spouse/S.O. Pain Onset: Hours (2 hours prior to arrival abrupt onset of shortness of breath with chest discomfort.) Context: Sudden Onset Timing: Continuous Quality: Positive for - (Pleuritic) Location: - (Anterior chest) Current Severity: Mild Maximum Severity: Moderate Bleeding Issue: Negative for Vaginal bleeding, Passing clots or Passing tissue Associated Symptoms Associated Symptoms: Positive for Frequency; Negative for Dysuria, Urgency or Hematuria Test: Positive P: 1 Ab: 0 Narrative Narrative: Patient is a 35-year-old G2, P1 female who is 36 weeks gestation. She is followed through the [facility] OB department. She presents because abrupt onset shortness breath and chest pain that started 2 hours prior to arrival. I was asked see patient in triage. Patient is pale diaphoretic tachycardic. She is not hypotensive. She has no symptoms to suggest preeclampsia at this time. She denies headache, visual or auditory symptoms. Denies trouble speech or swallowing. She did have 1 episode of nausea and vomiting. She does have frequency otherwise negative review of systems. Patient had thrombectomy earlier this week by Dr. De Guzman for thrombosed hemorrhoid. Prior similar symptoms: No Recent Illness/Hospitalizat ion: No PFSH PFSH Medical History Polyhydramnios Constipation Anemia Hemorrhoids Home Medications ???Medication ???Instructions ???Recorded ???Last Taken ???Type famotidine 20 mg tablet 20 mg PO BID 06/09/25 Unknown Hist ory ferrous sulfate 325 mg (65 mg 325 mg PO Q OTHER DAY 06/09/25 Unk nown History iron) tablet Allergy/AdvReac Type Severity Reaction Status Date / Time No Known Allergies Allergy Verified 06/13/25 10:12 Social History Smoking Status: Never smoker alcohol intake: never substance use type: does not use ROS ROS ED Constitutional Constitutional ED: Denies chills, fever(s), subjective or sweats Eyes Eyes: Denies blurry vision or change in vision ENT ENT ED: Denies ear pain or rhinorrhea Cardiovascular Cardiovascular: Reports chest pain and racing heartbeat; Denies orthopnea, palpitations or paroxysmal nocturnal dyspnea Respiratory/Chest Respiratory/Chest: Reports dyspnea; Denies cough, dyspnea on exertion, orthopnea or paroxysmal nocturnal dyspnea Gastrointestinal Gastrointestinal: Reports nausea and vomiting; Denies abdominal pain, diarrhea or melena Genitourinary Genitourinary ED: Denies dysuria, hematuria or urinary frequency Musculoskeletal Musculoskeletal: Denies arthralgias, myalgias or neck pain Integumentary Denies rash Neurologic Neurologic: Denies headache(s), paresthesias or weakness Psychiatric Psychiatric: Reports anxiety; Denies depression Hematologic/Lymphati c Hematologic/Lymphati c: Reports easy bleeding and easy bruising EXAM Physical Exam Const Vital Signs: 06/13/25 10:09 06/13/25 11:08 06/13/25 12:00 Temperature 98.0 F Temperature Source Oral Pulse Rate 128 H 102 H 89 Respiratory Rate 16 17 16 Blood Pressure 132/89 H 125/76 H Blood Pressure Mean 103 92 Pulse Ox 98 96 97 Oxygen Delivery Method Room Air Room Air Room Air Positive well nourished and well developed Constitutional Narrative: BMI is 36.0. Patient appears pale. She is anxious. She is tachycardic. Patient is slightly diaphoretic. I was asked to see patient in triage because of her vitals and concern for pulmonary embolus and if patient was to be seen in ED or L D. General Appearance ED: well developed and pallor HEENT Reports moist mucous membranes HEENT Narrative: Head is atraumatic normocephalic. Ears normal. Nares patent Eyes PERRL and EOMs intact bilaterally General Eye ED: Negative for pale conjunctiva or scleral icterus Neck no lymphadenopathy, supple and no JVD Resp normal respiratory effort and clear to auscultation bilaterally Cardio regular rhythm, S1 normal heart sound, no murmurs and no JVD Rate: tachycardic GI GI Narrative: Fundal height is 2 cm inferior to the xiphoid process. There is no contractions. Extremity normal to inspection and full ROM General Extremety ED: Negative for edema General Extremity: Negative for edema Neuro oriented x3, CN's II-XII intact bilaterally and no sensory deficits noted N (more content not included)... Normal [facility] Eosinophil percentageOrdered By: Gonzalez Barreto on 06-13-2025 Eosinophils/100 WBC (Bld) 0.1 % 0-5 [facility] Erythrocyte distribution wid th ratioOrdered By: Gonzalez Barreto on 06-13-2025 Erythrocyte distribution width (RBC) [Ratio] 28.7 % High 11.6-14.6 [facility] Erythrocyte distribution wid th standard deviationOrdered By: Gonzalez Barreto on 06-13-2025 Erythrocyte distribution width (RBC) [Ratio] 73.7 fl High 35.1-43.9 [facility] Glomerular filtration rate ( GFR) estimation/1.73 sq m using serum, plasma, or whole bOrdered By: Gonzalezrivas Barreto on 06-13-2025 GFR/1.73 sq M.predicted among non-blacks MDRD (S/P/Bld) [Vol rate/Area] 129 mL/min/{1.73_m2} >60 [facility] Comment on above: mL/min/1.73m2 CKD-EP I Creatinine Equation (2020) Hematocrit Auto (Bld) [Volum e fraction]Ordered By: Gonzalezrivas Barreto on 06-13-2025 Hematocrit (Bld) [Volume fraction] 35.0 % Low 37-47 [facility] Hemoglobin measurementOrdere d By: Gonzlaezrivas Barreto on 06-13-2025 Hemoglobin (Bld) [Mass/Vol] 10.8 g/dL Low 12.0-15.0 [facility] Immature granulocytes/100 WB C Auto (Bld)Ordered By: Gonzalezrivas Barreto on 06-13-2025 Immature granulocytes/100 WBC (Bld) 0.500 % 0.0-0.9 [facility] Comment on above: IG% - Immature Granu locytes (promyelocytes, myelocytes and metamyelocytes) > 1% indicates that a LEFT SHIFT is Present. International normalized rat io (INR) calculationOrdered By: Gonzalezrivas Barreto on 06-13-2025 INR Coag (Bld) [Relative time] 1.1 {INR} [facility] L501.4021on 06-13-2025 Trop T High Sen < 6 Normal <=14 [facility] Comment on above: Performed By: #### L 501.402 #### [facility] Laboratory [facility] [place] [address] [place], [address] Laboratory - Chemistry and C hemistry - challengeOrdered By: Gonzalezrivas Barreto on 06-13-2025 AST [Catalytic activity/Vol] 13 U/L <32 [facility] Laboratory - Hematology and Cell countsOrdered By: Gonzalezrivas Barreto on 06-13-2025 Anisocytosis Ql (Bld) 1+ [facility] Lactic Acidon 06-13-2025 Lactate [Moles/Vol] 1.4 mmol/L Normal 0.0-2.0 [facility] Comment on above: Order Comment: Y Performed By: #### L 503.6005, L503.7505, L500.4050, L100.0100 #### [facility] [place], [address] Lactic acid measurementOrder ed By: Gonzalez Barreto on 06-13-2025 Lactate [Moles/Vol] 1.4 mmol/L 0.0-2.0 [facility] MCV (mean corpuscular volume ) determinationOrdered By: Gonzalezrivas Barreto on 06-13-2025 MCV (RBC) [Entitic vol] 76.9 fL Low 81-99 [facility] Mean corpuscular hemoglobin (MCH) determinationOrdered By: Gonzalezrivas Barreto on 06-13-2025 MCH (RBC) [Entitic mass] 23.7 pg Low 27.0-32.0 [facility] Mean corpuscular hemoglobin concentration (MCHC) determinationOrdered By: Gonzalezrivas Barreto on 06-13-2025 MCHC (RBC) [Mass/Vol] 30.9 g/dL Low 32-36 [facility] Mean platelet volume determi nationOrdered By: Gonzalezrivas Barreto on 06-13-2025 Platelet mean volume (Bld) [Entitic vol] 8.1 fL 6.2-12.0 [facility] Monocyte percentageOrdered B y: Gonzalez Barreto on 06-13-2025 Monocytes/100 WBC (Bld) 2.1 % 0-10 [facility] Natriuretic peptide.B prohor hortencia N-Terminal [Mass/volume] in Serum or PlasmaOrdered By: Gonzalezrivas Barreto on 06-13-2025 Natriuretic peptide.B prohormone N-Terminal [Mass/Vol] < 36 pg/mL <450 [facility] Comment on above: Heart Failure Unlike ly: < 300 pg/mLHeart Failure Likely< 50 Years: > 450 pg/mL50-75 Years: > 900 pg/mL>75 Years: > 1800 pg/mL Neutrophil percentageOrdered By: Gonzalez Barreto on 06-13-2025 Neutrophils/100 WBC (Bld) 92.0 % High 47-70 [facility] Nucleated red blood cell per centageOrdered By: Gonzalez Barreto on 06-13-2025 Nucleated RBC/100 WBC (Bld) [Ratio] 0 % 0-5 [facility] Partial Thromboplast Timeon 06-13-2025 aPTT Coag (Bld) [Time] 24.7 s Normal 24.1-36.2 [facility] Comment on above: Order Comment: Comme nts: If not done in prior 24 hours Performed By: #### L 300.4310, L100.0100, L300.3900 #### [facility] [address] [place], [address] Platelet countOrdered By: Sofi Tiradoo on 06-13-2025 Platelets (Bld) [#/Vol] 215 10*3/uL 150-450 [facility] Potassium measurement (mass/ volume)Ordered By: Gonzalezrivas Barreto on 06-13-2025 Potassium (Unsp spec) [Mass/Vol] 3.6 mmol/L 3.3-5.1 [facility] Pro- Brain NATRIURETIC PEPTI Radha 06-13-2025 proBNP < 36 Normal <=450 [facility] Comment on above: Result Comment: Hear t Failure Unlikely: < 300 pg/mL Heart Failure Likely < 50 Years: > 450 pg/mL 50-75 Years: > 900 pg/mL >75 Years: > 1800 pg/mL Performed By: #### L 501.4021 #### [facility] [address] [place], [address] Protein+Creatinine Ratio,Uri neon 06-13-2025 PROT:CRE RATIO 392 mg/g CRE High 0-200 [facility] Comment on above: Performed By: #### L 501.0900 #### [facility] [address] [place], [address] Protein (U) [Mass/Vol] 13.2 mg/dL High 0.0-12.0 [facility] Comment on above: Performed By: #### L 501.0900 #### [facility] [address] [place], [address] UR CREAT 33.70 mg/dL Normal 28.00-217.00 [facility] Comment on above: Performed By: #### L 501.0900 #### [facility] [address] [place], [address] Prothrombin Time w/INRon INR Coag (PPP) [Relative time] 1.1 {INR} Normal [facility] Comment on above: Order Comment: Comme nts: If not done in prior 24 hours Performed By: #### L 300.4310, L100.0100, L300.3900 #### [facility] [address] [place], [address] PT Coag (PPP) [Time] 14.0 s Normal 11.7-14.9 [facility] Comment on above: Order Comment: Comme nts: If not done in prior 24 hours Performed By: #### L 300.4310, L100.0100, L300.3900 #### [facility] [address] [place], [address] Prothrombin timeOrdered By: Gonzalez Barreto on 06-13-2025 PT Coag (PPP) [Time] 14.0 s 11.7-14.9 [facility] RBC Auto (Bld) [#/Vol]Ordere d By: Gonzalez Barreto on 06-13-2025 RBC (Bld) [#/Vol] 4.55 10*6/uL 4.2-5.4 [facility] Random urine creatinine esme urement (mass/volume)Ordered By: Kerry Paniagua on 06-13-2025 Creatinine Unsp time (U) [Mass/Vol] 33.70 mg/dL 28.00-217.00 [facility] Serum creatinine measurement (mass/volume)Ordered By: Gonzalez Barreto on 06-13-2025 Creatinine [Mass/Vol] 0.46 mg/dL Low 0.70-1.20 [facility] Serum globulin measurementOr dered By: Gonzalez Barreto on 06-13-2025 Globulin (S) [Mass/Vol] 2.9 g/dL 2.2-4.2 [facility] Serum glucose measurement (m ass/volume)Ordered By: Gonzalez Barreto on 06-13-2025 Glucose [Mass/Vol] 75 mg/dL 70-99 [facility] Serum or plasma alanine al otransferase (ALT) measurementOrdered By: Gonzalez Barreto on 06-13-2025 ALT [Catalytic activity/Vol] U/L <35 [facility] Serum or plasma albumin esme urement (mass/volume)Ordered By: Gonzalez Barreto on 06-13-2025 Albumin [Mass/Vol] 3.5 g/dL 3.5-5.0 [facility] Serum or plasma albumin/glob ulin mass ratioOrdered By: Gonzalez Barreto on 06-13-2025 Albumin/Globulin [Mass ratio] 1.2 {ratio} 0.9-2.4 [facility] Serum or plasma alkaline shirley sphatase measurementOrdered By: Gonzalez Barreto on 06-13-2025 ALP [Catalytic activity/Vol] 90 U/L 35-104 [facility] Serum or plasma calcium esme urement (mass/volume)Ordered By: Gonzalez Barreto on 06-13-2025 Calcium [Mass/Vol] 9.3 mg/dL 7.6-11.0 [facility] Serum or plasma urea nitroge n measurement (mass/volume)Ordered By: Gonzalez Barreto on 06-13-2025 Urea nitrogen [Mass/Vol] 5 mg/dL 4-19 [facility] Sodium levelOrdered By: Gonzalez Barreto on 06-13-2025 Sodium [Moles/Vol] 136 mmol/L 133-145 [facility] Total proteinOrdered By: Gonzalez Barreto on 06-13-2025 Protein [Mass/Vol] 6.4 g/dL 5.9-8.4 [facility] Troponin T HS 2 HRon 025 Trop T High Sen < 6 Normal <=14 [facility] Comment on above: Performed By: #### L 501.4021 #### [facility] [address] [place], [place], [address] Troponin T HS 4 HRon 025 Trop T High Sen Normal <=14 [facility] Comment on above: Result Comment: KAREN ENT DISCHARGED-NO SPECIMEN REC'D Performed By: #### L 499.0043 #### [facility] [address] [place], [address] Troponin T.cardiac [Mass/vol ume] in Serum or Plasma by High sensitivity methodOrdered By: Gonzalez Barreto on 06-13-2025 Troponin T.cardiac High sensitivity method [Mass/Vol] < 6 ng/L <14 [facility] Troponin T.cardiac High sensitivity method [Mass/Vol] < 6 ng/L <14 [facility] Urine protein measurement (m ass/volume)Ordered By: Kerry Paniagua on 06-13-2025 Protein (U) [Mass/Vol] 13.2 mg/dL High 0.0-12.0 [facility] Urine protein/creatinine mas s ratioOrdered By: Kerry Paniagua on 06-13-2025 Protein/Creatinine (U) [Mass ratio] 392 mg/g CRE High 0-200 [facility] White blood cell (WBC) count Ordered By: Gonzalez Barreto on 06-13-2025 WBC (Bld) [#/Vol] 10.7 10*3/uL 4.4-11.0 [facility] ROUTINE, GROUP B ST REPTOCOCCUS BY PCRon 06-10-2025 ROUTINE, GROUP B STREPTOCOCCUS BY PCR Detected Abnormal [facility] Comment on above: Performed By: #### G BPCR ####[facility] LABCLIA [id number] [place] [address] [place] URINE OB DIP B/Oon Glucose Ql (U) Negative Neg mg/dL [facility] Interpretation and review of laboratory results Normal [facility] Protein.monoclonal (U) [Mass/Vol] trace Neg mg/dL [facility] Surgery Visit Reporton 06-09 Surgery Visit Report [facility] [address] [place] [address] OFFICE VISIT Date of Service: 06/09/25 MR#: [id number] Acct: [id number] Name: FEDERICA FIGUEROA Rep #: [id number] : 1990 Provider: PAVEL staton Age/Sex: 35/F Location: [facility] Status: Signed Intake Vital Signs 06/09/25 08:12 Height 5 ft 5 in BP 128/80 H Blood Pressure Location Rt brachial Position Sitting Respiration 18 Pulse 72 Pulse Source Monitor Temp 97.2 F L Temp Source Temporal Pulse Oximetry (%) 99 Oxygen Delivery Method room air Intake Visit Reasons: Incision Drainage thrombosed hemorrhoid Chief Complaint: incision and drainage thrombosed hemorrhoid Is patient in pain?: Yes Allergies No Known Allergies Allergy (Unverified 06/09/25 08:13) Medications ???Medication ???Instructions ???Recorded ???Confirmed ???Type famotidine 20 mg tablet 20 mg PO BID 06/09/25 06/09/25 His tory ferrous sulfate 325 mg (65 mg 325 mg PO Q OTHER DAY 06/09/2509/23 History iron) tablet PFSH Medical History (Updated 06/09/25 @ 13:48 by Bird BOURNE PA-C) Constipation Anemia Hemorrhoids Social History (Updated 06/09/25 @ 08:12 by Chikis Austin LPN) Smoking Status: Never smoker alcohol intake: never substance use type: does not use HPI HPI HPI: Patient is a 35 y/o F I am seeing for a painful hemorrhoid. Patient is currently 8 months . She notes having intermittent constipation. She denies having a previous thrombosed hemorrhoid. ROS General General: No weight change, appetite, fatigue, colon cancer, breast cancer or weakness HEENT HEENT: No difficulty swallowing, eye injury, eye surgery, swollen glands or hoarseness Endo Endocrine: No thyroid disease, diabetes mellitus, thyroid cancer, Hair loss, heat intolerance or cold intolerance Skin Skin: No rash or changing moles Musc Musculoskeletal: No back problems, arthritis, rheumatoid arthritis, gout or joint pain Cardio Cardiovascular: No murmur, pacemaker, heart disease, atrial fibrillation, high blood pressure, heart attack, heart stent, palpitations, shortness of breath with exertion or chest pain Psych Psychiatric: No depression, anxiety or hearing voices Resp Respiratory: No shortness of breath, No sleep apnea, No cough, No COPD, Yes asthma, No emphysema and No wheezing Gastro Gastrointestinal: No abdominal pain, No nausea or vomiting, No diarrhea, Yes constipation, No blood in stool, Yes acid reflux, Yes hemorrhoids, No ulcers, No gallbladder problem and No black,tarry stools Mk Hematologic: No blood thinners, No blood disorders, No bleeding, Yes anemia and No blood clots Neuro Neurologic: No numbness, No tingling and No weakness Exam GI Other: Anus- left posterior lateral thrombosed hemorrhoid. Multiple non-thrombosed hemorrhoids noted. Office Procedures Hemorrhoid Provider Documentation Provider Documentation: Procedure note Procedure: Incision and Evacuation of left posterior lateral thrombosed hemorrhoid Permit: Procedure, benefits, risks (include those of bleeding, infection, injury, anesthesia, and allergic reaction), and alternatives explained to the patient who voiced understanding of the information. Their questions were sought and answered. Patient agreed to proceed with the incision and Evacuation of left posterior lateral thrombosed hemorrhoid. Permit signed and in chart. Indication: Left posterior lateral thrombosed hemorrhoid Physician: Bird Leija PA-C Nurse: An Austin LPN Description: Patient positioned in the left lateral decubitus position on the procedure table. Area prepped with betadine and draped in a sterile fashion. Local anesthetic administered with 7 cc of 0.5% Marcaine and 1% lidocaine. A linear incision was made and a moderate-sized clot was expressed. Cavity was probed to break up any pockets. Culture was not obtained. Surrounding area was cleansed with normal saline and 4 x 4 gauze dressing was applied in the area and a maxi-pad was provided to the patient. Patient tolerated the procedure well. Complications: None Disposition: Patient alert and oriented. Patient tolerated the procedure well. Alert Jorge Alert Billing: Yes Hemorrhoid 01300 Evacuation Procedure Time Out Time Out Informed consent given: Yes Consent signed: Yes Time out checklist: patient, procedure, site marked/identified, positioning of patient, supplies available, allergies confirmed and team agrees on procedure Time out staff in room: Yes Time out verified: Yes Time out date: 06/09/25 Time out time: 08:47 Assessment and Plan Assessment and Plan (1) Thrombosed external hemorrhoid: Status: Acute Plan: Recommend sitz bathes BID or TID over (more content not included)... Normal [facility] Examination level ultrasound on 06-03-2025 [facility] Radiology Study observation (narrative) [facility] URINE OB DIP B/OOrdered By: Taylor Tobias on 06-03-2025 Glucose Ql (U) Negative Neg mg/dL [facility] Protein.monoclonal (U) [Mass/Vol] trace Neg mg/dL [facility] CNPNon 05-09-2025 CNPN Telephone (BECKA) FEDERICA FIGUEROA ([id number]) 1990 F Date Time Provider Department 05/09/25 JAMEY MCGHEE During your visit today, we recorded the following information about you: Yudi Santiago 05/09/2025 2:30 PM Signed Patient called to schedule Iron Infusions. I don't see any orders. Can you review and advise Jamey Otero MD 05/09/2025 3:14 PM Signed Consult placed MD Hillary Don Trisha, RN 05/09/2025 3:19 PM Signed Blood mgmt referral placed for IV iron infusions. 31w4d today. Please contact patient to schedule. ROYER Singer Angela 05/12/2025 11:10 AM Signed I don't see a beacon order Please review and advise Katherine Lovell 05/21/2025 1:10 PM Signed Scheduled 1st treatment. Start email sent Patient was driving and will schedule remaining while in the office. Allergies As of Date: 05/09/2025 (No Known Allergies) Date Reviewed: 05/06/2025 Reviewed by: Jamey Mcghee MD - Fully Assessed Reason for Visit: Non-Chemotherapy Treatment [795] Primary Visit Diagnosis:Antepartum anemia (HCC) [O99.019] Order(s):BLOOD MANAGEMENT REFERRAL [[id number]] Order #: [id number]: 1 Prescriptions as of 09/05/2025 - albuterol HFA (PROVENTIL HFA, VENTOLIN HFA) 90 mcg/actuation inhaler Inhale 2-4 puffs as instructed every 2 hours as needed for wheezing/shortness of breath. - enoxaparin (LOVENOX) 80 mg/0.8 mL Inject 0.8 mL subcutaneously every 12 hours. - PNV no.95/ferrous fum/folic ac ( ORAL) Take 2 Pieces of gum by mouth once daily. - ALBUTEROL INHALATION Inhale 2 Inhalations as instructed as needed (WHEEZING, SHORTNESS OF BREATH). Problem List As Of Date 05/09/2025 Noted Resolved Skin lesion of breast [L98.8] 11/25/2024 Obesity affecting in second trimester*11/25/2024 Asthma affecting in first trimester [*11/25/2024 Supervision of high risk in second tr*11/25/2024 Nausea and vomiting during [O21.9] 11/25/2024 History of depression [Z86.59] 11/25/2024 with uncertain dates in first trimest*11/25/2024 02/17/2025 Penicillin allergy [Z88.0] 11/25/2024 History of migraine headaches [Z86.69] 12/23/2024 Anemia complicating , first trimester *12/26/2024 Back pain affecting (HCC) [O99.891, M*03/20/2025 Encounter Status:Closed by YUDI SANTIAGO on 09/05/25 Normal [facility] CBC panel Auto (Bld)on 05-06 Erythrocyte distribution width (RBC) [Ratio] 17.7 % High 11.5-15.0 [facility] Comment on above: Order Comment: Speci men Type: BLOOD SPECIMENOrdering Facility: [facility] Address: [address] [place] [address] [place] [address] Performed By: #### 5 8410-2 ####[facility]INTWNCL[facility] [id number] [place] [address] [place] Hematocrit (Bld) [Volume fraction] 29.3 % Low 36.0-46.0 [facility] Comment on above: Order Comment: Speci men Type: BLOOD SPECIMENOrdering Facility: [facility] Address: [address] [place] [address] Performed By: #### 5 8410-2 ####[facility] [id number] [place] [address] [place] Hemoglobin (Bld) [Mass/Vol] 8.7 g/dL Low 11.5-15.5 [facility] Comment on above: Order Comment: Speci men Type: BLOOD SPECIMENOrdering Facility: [facility] Address: [address] [place] [address] Performed By: #### 5 8410-2 ####[facility] [id number] [place] [address] [place] MCH (RBC) [Entitic mass] 20.4 pg Low 26.0-34.0 [facility] Comment on above: Order Comment: Speci men Type: BLOOD SPECIMENOrdering Facility: [facility] Address: [address] [place] [address] Performed By: #### 5 8410-2 ####[facility] [id number] [place] [address] [place] MCHC (RBC) [Mass/Vol] 29.7 g/dL Low 30.5-36.[address] [facility] Comment on above: Order Comment: Speci men Type: BLOOD SPECIMENOrdering Facility: [facility] Address: [address] [place] [address] Performed By: #### 5 8410-2 ####[facility] [id number] [place] [address] [place] MCV (RBC) [Entitic vol] 68.8 fL Low 80.0-100.0 [facility] Comment on above: Order Comment: Speci men Type: BLOOD SPECIMENOrdering Facility: [facility] Address: [address] [place] [address] Performed By: #### 5 8410-2 ####[facility] [id number] [place] [address] [place] Nucleated RBC (Bld) [#/Vol] 10*3/uL Normal <0.01 [facility] Comment on above: Order Comment: Speci men Type: BLOOD SPECIMENOrdering Facility: [facility] Address: [address] [place] [address] Performed By: #### 5 8410-2 ####[facility] [id number] [place] [address] [place] Platelet mean volume (Bld) [Entitic vol] 8.2 fL Low 9.0-12.7 [facility] Comment on above: Order Comment: Speci men Type: BLOOD SPECIMENOrdering Facility: [facility] Address: [address] [place] [address] Performed By: #### 5 8410-2 ####[facility] [id number] [place] [address] [place] Platelets (Bld) [#/Vol] 263 10*3/uL Normal 150-400 [facility] Comment on above: Order Comment: Speci men Type: BLOOD SPECIMENOrdering Facility: [facility] Address: [address] [place] [address] Performed By: #### 5 8410-2 ####[facility]CL[facility] [id number] [place] [address] [place] RBC (Bld) [#/Vol] 4.26 10*6/uL Normal 3.90-5.20 [facility] Comment on above: Order Comment: Speci men Type: BLOOD SPECIMENOrdering Facility: [facility] Address: [address] [place] [address] Performed By: #### 5 8410-2 ####[facility]CL[facility] [id number] [place] [address] [place] [place] WBC (Bld) [#/Vol] 12.52 10*3/uL High 3.70-11.00 [facility] Comment on above: Order Comment: Speci men Type: BLOOD SPECIMENOrdering Facility: [facility] Address: [address] [place] [address] Performed By: #### 5 8410-2 ####[facility] [id number] [place] [address] [place] Examination level ultrasound on 05-06-2025 [facility] Radiology Study observation (narrative) [facility] ALLERGEN SKIN TEST-PENICILLI Non 04-28-2025 ANTIBIOTIC PERCUTANEOUS AND INTRADERMAL SKIN TESTING/ Mean Wheal & Flare Diameter (mm) Patient has been identified by name and date of : Yes . Skin test applied by : Darren Mishra RN Interpreted By: ISI Ortiz * Clinical significant reactions are regarded as a wheal diameter greater than or equal to 3 mm with a flare diameter greater or equal to 6mm. Time Prick test applied: 1340 Time Intradermal test applied: 1400 Time Prick test read: 1355 Time Intradermal test read: 1415 ALLERGENS 1. Negative Control (50% glycerin/50% cocas for prick and HSA for intradermal) P: W = 0 mm F = 3 mm ID:W = 3 mm F = 0 mm 2. PENICILLIN GK 10,000 UNITS/ML Lot# [id number] Exp.05/02/2025 P: W = 0 mm F = 3 mm ID: W = 3 mm F = 0 mm 3. PREPEN -(benzylpenicilloyl polylysine) full strength [facility]#[id number] Lot#[id number] exp#04/28/2026 P: W = 0 mm F = 3 mm ID: W = 3 mm F = 0 mm 4. HISTAMINE- positive control (Histamine base 6mg/ml)for Prick and 0.1 mg/ml for intradermal P: W = 5 mm F = 20 mm [facility] CNOVon 04-28-2025 CNOV Office Visit ([facility]) FEDERICA FIGUEROA ([id number]) 1990 F Date Time Provider Department 04/28/25 1:00 PM KESHIA MOREIRA [facility] During your visit today, we recorded the following information about you: Temperature Pulse Respiration Blood pressure 98 degrees 88/minute 18/minute 120/73 Weight Height 92.9 kg 1.575 m Keshia Moreira, LYLY.[facility] 04/28/2025 8:22 PM Signed [facility] Allergy AND Clinical Immunology Keyla Kay MD has requested consultation for penicillin allergy. My progress note with assessment and recommendations from today's appointment will be electronically routed to Keyla Kay MD. Chief Complaint: Penicillin allergy Historian: Patient Recording using [employer] software for draft documentation of the visit was discussed with the patient/authorized healthcare sales representative; all questions welcomed and answered. Patient/authorized healthcare sales representative agreed to proceed HPI Ms. Figueroa is a 34 year old 30-week female with a history of asthma, allergies, and eczema in clinic for work up of penicillin allergy. Federica reports a history of a penicillin allergy manifesting as a rash during childhood. She does not recall the severity of the reaction or if hospitalization was required. She is uncertain if she has tolerated cephalosporins since the reaction. 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 No pertinent surgical history. FAMILY HISTORY Problem Relation Age of Onset Hypertension Mother Asthma Mother Allergic Rhinitis Mother No Known Problems Sister Alzheimer's Disease Maternal Grandmother Social History Tobacco Use Smoking status: Never Smokeless tobacco: Never Vaping Use Vaping status: Never Used Substance Use Topics Alcohol use: Never Drug use: Never Social History Tobacco Use Smoking status: Never Smokeless tobacco: Never Current Outpatient Medications Medication Sig ferrous sulfate 325 mg (65 mg iron) tablet Take 1 tablet by mouth every other day. famotidine (PEPCID) 20 mg tablet Take 1 tablet by mouth two times a day. PNV no.95/ferrous fum/folic ac ( ORAL) Take 2 Pieces of gum by mouth once daily. ALBUTEROL INHALATION Inhale 2 Inhalations as instructed as needed (WHEEZING, SHORTNESS OF BREATH). Current Facility-Administere d Medications Medication Dose Route Frequency penicillin G potassium 2,000 Units injection in NaCl 0.9% 0.2 mL (PFIZERPEN-G) 2,000 Units INTRADERMAL ONCE ALLERGIES Allergen Reactions Penicillins Rash Review of Systems Constitutional: Negative for chills and fever. HENT: Positive for congestion. Negative for postnasal drip, rhinorrhea, sore throat and trouble swallowing. Eyes: Negative for redness and itching. Respiratory: Negative for cough, chest tightness, shortness of breath and wheezing. Cardiovascular: Negative for chest pain. Gastrointestinal: Positive for abdominal pain (2/2 symphysis pubis dysfunction). Negative for diarrhea, nausea and vomiting. Skin: Negative for rash. Neurological: Negative for dizziness, syncope and light-headedness. Blood pressure 127/81, pulse 99, temperature 36.7 ?C (98 ?F), temperature source Temporal, resp. rate 19, height 157.5 cm (5' 2), weight 92.9 kg (204 lb 12.9 oz), last menstrual period 09/01/2024, SpO2 99%. Body mass index is 37.46 kg/m?. Physical Exam Vitals reviewed. Constitutional: General: She is not in acute distress. Appearance: Normal appearance. She is not ill-appearing. HENT: Nose: Nose normal. Mouth/Throat: Mouth: Mucous membranes are moist. Pharynx: Oropharynx is clear. Eyes: Conjunctiva/sclera: Conjunctivae normal. Cardiovascular: Rate and Rhythm: Normal rate and regular rhythm. Heart sounds: Normal heart sounds. Pulmonary: Effort: Pulmonary effort is normal. Breath sounds: Normal breath sounds. Skin: General: Skin is warm and dry. Findings: No rash. Neurological: Mental Status: She is alert. Psychiatric: Mood and Affect: Mood normal. Behavior: Behavior is cooperative. Allergy Skin Testing AND Oral Drug Challenge: Skin testing performed percutaneously and intradermally to penicillin G and PrePen. Results were negative and personally reviewed and inter (more content not included)... Normal [facility] INGESTION CHALLENGE TESTon 0 04-28-2025 Amoxicillin Oral Challenge 1327 Informed consent for Amoxicillin oral challenge obtained per Vindi. Amoxicillin ([facility] lot [id number] exp. 10/28/2026) 250 mg/5 ml oral suspension po given per Vindi orders. 1416 Amoxicillin 25mg given per order. 1446 Amoxicillin 225mg given per order. 1519 BP: 120/73 HR 88 RR 18 SpO2 98% 1519 Testing complete. No signs or symptoms of a rxn. Vindi in to assess. [facility] No Panel Informationon 04-28 [facility] CBC W Auto Differential pane l (Bld)on 04-21-2025 Basophils (Bld) [#/Vol] 0.04 10*3/uL Normal <0.11 [facility] Comment on above: Order Comment: Speci men Type: BLOOD SPECIMENOrdering Facility: [facility] Address: [address] [place], [place] [address] Performed By: #### 5 7021-8 ####[facility] [id number] [place] [address] [place] Basophils/100 WBC (Bld) 0.3 % Normal C [facility] Comment on above: Order Comment: Speci men Type: BLOOD SPECIMENOrdering Facility: [facility] Address: [address] [place] [address] Performed By: #### 5 7021-8 ####[facility] BALBINAWBRYANNALIA [id number] [place] [address] [place] Differential cell count method Nom (Bld) Auto Normal [facility] Comment on above: Order Comment: Speci men Type: BLOOD SPECIMENOrdering Facility: [facility] Address: [address] [place] [address] Performed By: #### 5 7021-8 ####[facility] STEVEDEVINLIA [id number] [place] [address] [place] Eosinophils (Bld) [#/Vol] 0.13 10*3/uL Normal <0.46 [facility] Comment on above: Order Comment: Speci men Type: BLOOD SPECIMENOrdering Facility: [facility] Address: [address] [place] [address] Performed By: #### 5 7021-8 ####[facility]PITALBRYANNALIA [id number] [place] [address] [place] Eosinophils/100 WBC (Bld) 0.9 % Normal [facility] Comment on above: Order Comment: Speci men Type: BLOOD SPECIMENOrdering Facility: [facility] Address: [address] [place] [address] Performed By: #### 5 7021-8 ####[facility] STEVEWNCLIA [id number] [place] [address] [place] Erythrocyte distribution width (RBC) [Ratio] 16.4 % High 11.5-15.0 [facility] Comment on above: Order Comment: Speci men Type: BLOOD SPECIMENOrdering Facility: [facility] Address: [address] [place] [address] Performed By: #### 5 7021-8 ####[facility]ITALBRYANNALIA [id number] [place] [address] [place] Hematocrit (Bld) [Volume fraction] 31.2 % Low 36.0-46.0 [facility] Comment on above: Order Comment: Speci men Type: BLOOD SPECIMENOrdering Facility: [facility] Address: [address] [place] [address] Performed By: #### 5 7021-8 ####[facility] [id number] [place] [address] [place] Hemoglobin (Bld) [Mass/Vol] 9.2 g/dL Low 11.5-15.5 [facility] Comment on above: Order Comment: Speci men Type: BLOOD SPECIMENOrdering Facility: [facility] Address: [address] [place] [address] Performed By: #### 5 7021-8 ####[facility] [id number] [place] [address] [place] Immature granulocytes (Bld) [#/Vol] 0.16 10*3/uL High <0.10 [facility] Comment on above: Order Comment: Speci men Type: BLOOD SPECIMENOrdering Facility: [facility] Address: [address] [place] [address] Performed By: #### 5 7021-8 ####[facility] [id number] [place] [address] [place] Immature granulocytes/100 WBC (Bld) 1.1 % Normal [facility] Comment on above: Order Comment: Speci men Type: BLOOD SPECIMENOrdering Facility: [facility] Address: [address] [place] [address] Performed By: #### 5 7021-8 ####[facility] [id number] [place] [address] [place] Lymphocytes (Bld) [#/Vol] 1.92 10*3/uL Normal 1.00-4.00 [facility] Comment on above: Order Comment: Speci men Type: BLOOD SPECIMENOrdering Facility: [facility] Address: [address] [place] [address] Performed By: #### 5 7021-8 ####[facility] [id number] [place] [address] [place] Lymphocytes/100 WBC (Bld) 13.2 % Normal [facility] Comment on above: Order Comment: Speci men Type: BLOOD SPECIMENOrdering Facility: [facility] Address: [address] [place] [address] Performed By: #### 5 7021-8 ####[facility] [id number] [place] [address] [place] MCH (RBC) [Entitic mass] 20.2 pg Low 26.0-34.0 [facility] Comment on above: Order Comment: Speci men Type: BLOOD SPECIMENOrdering Facility: [facility] Address: [address] [place] [address] Performed By: #### 5 7021-8 ####[facility]PITALNCLI [id number] [place] [address] [place] MCHC (RBC) [Mass/Vol] 29.5 g/dL Low 30.5-36.[address] [facility] Comment on above: Order Comment: Speci men Type: BLOOD SPECIMENOrdering Facility: [facility] Address: [address] [place] [address] Performed By: #### 5 7021-8 ####[facility] [id number] [place] [address] [place] MCV (RBC) [Entitic vol] 68.6 fL Low 80.0-100.0 C [facility] Comment on above: Order Comment: Speci men Type: BLOOD SPECIMENOrdering Facility: [facility] Address: [address] [place] [address] Performed By: #### 5 7021-8 ####[facility] STEVETOWNCLIA [id number] [place] [address] [place] Monocytes (Bld) [#/Vol] 0.72 10*3/uL Normal <0.87 [facility] Comment on above: Order Comment: Speci men Type: BLOOD SPECIMENOrdering Facility: [facility] Address: [address] [place] [address] Performed By: #### 5 7021-8 ####[facility] POINTWNCLIA [id number] [place] [address] [place] Monocytes/100 WBC (Bld) 5.0 % Normal [facility] Comment on above: Order Comment: Speci men Type: BLOOD SPECIMENOrdering Facility: [facility] Address: [address] [place] [address] Performed By: #### 5 7021-8 ####[facility]ITALNCLIA [id number] [place] [address] [place] Neutrophils (Bld) [#/Vol] 11.56 10*3/uL High 1.45-7.50 [facility] Comment on above: Order Comment: Speci men Type: BLOOD SPECIMENOrdering Facility: [facility] Address: [address] [place] [address] Performed By: #### 5 7021-8 ####[facility] MILLTOWNCLIA [id number] [place] [address] [place] Neutrophils/100 WBC (Bld) 79.5 % Normal [facility] Comment on above: Order Comment: Speci men Type: BLOOD SPECIMENOrdering Facility: [facility] Address: [address] [place] [address] Performed By: #### 5 7021-8 ####[facility] [id number] [place] [address] [place] Nucleated RBC (Bld) [#/Vol] 10*3/uL Normal <0.01 [facility] Comment on above: Order Comment: Speci men Type: BLOOD SPECIMENOrdering Facility: [facility] Address: [address] [place] [address] Performed By: #### 5 7021-8 ####[facility] [id number] [place] [address] [place] Nucleated RBC/100 WBC (Bld) [Ratio] 0.0 /100 WBC Normal [facility] Comment on above: Order Comment: Speci men Type: BLOOD SPECIMENOrdering Facility: [facility] Address: [address] [place] [address] Performed By: #### 5 7021-8 ####[facility] [id number] [place] [address] [place] Platelet mean volume (Bld) [Entitic vol] 8.4 fL Low 9.0-12.7 [facility] Comment on above: Order Comment: Speci men Type: BLOOD SPECIMENOrdering Facility: [facility] Address: [address] [place] [address] Performed By: #### 5 7021-8 ####[facility] [id number] [place] [address] [place] Platelets (Bld) [#/Vol] 272 10*3/uL Normal 150-400 [facility] Comment on above: Order Comment: Speci men Type: BLOOD SPECIMENOrdering Facility: [facility] Address: [address] [place] [address] Performed By: #### 5 7021-8 ####[facility]ITALL[facility] [id number] [place] [address] [place] RBC (Bld) [#/Vol] 4.55 10*6/uL Normal 3.90-5.20 [facility] Comment on above: Order Comment: Speci men Type: BLOOD SPECIMENOrdering Facility: [facility] Address: [address] [place] [address] Performed By: #### 5 7021-8 ####[facility] [id number] [place] [address] [place] WBC (Bld) [#/Vol] 14.53 10*3/uL High 3.70-11.00 [facility] Comment on above: Order Comment: Speci men Type: BLOOD SPECIMENOrdering Facility: [facility] Address: [address] [place] [address] Performed By: #### 5 7021-8 ####[facility] [id number] [place] [address] [place] Ferritin SerPl-mCncon 2024 Ferritin [Mass/Vol] 6.4 ng/mL Low 14.7-205.1 [facility] Comment on above: Order Comment: Speci men Type: BLOOD SPECIMENOrdering Facility: [facility] Address: [address] [place] [address] Performed By: #### 5 0190-8, 2276-4 ####[facility] LABCLIA [id number] [place] [address] [place] GESTATIONAL GLUCOSE SCREEN, 1-HOUR, 50 GRAM, NON-FASTINGon 04-21-2025 Glucose [Mass/Vol] 107 mg/dL Normal 74-134 [facility] Comment on above: Order Comment: Speci men Type: BLOOD SPECIMEN [facility] Address: [address] [place] [address] Result Comment: [facility] Congress of Obstetricians and Gynecologists (Sho/Sebastian) guidelines state a gestational diabetes mellitus positive screen is made, in women not previously diagnosed with overt diabetes, when the 1 hr plasma glucose level is equal to or above 140 mg/dL. The [facility] Director Of In Service Education and Women's Health [place] recommends a 135 mg/dL cutoff. Performed By: #### C [facility] #### [facility] CLIA [id number] [facility] [place] [address] Iron and Iron binding capaci ty panelon 04-21-2025 Iron [Mass/Vol] 25 ug/dL Low 41-186 [facility] Comment on above: Order Comment: Speci men Type: BLOOD SPECIMENOrdering Facility: [facility] Address: [address] [place] [address] Performed By: #### 5 0190-8, 2275-4 ####[facility] LABCLIA [id number] [place] [address] [place] Iron binding capacity [Mass/Vol] >525 High 232-386 [facility] Comment on above: Order Comment: Speci men Type: BLOOD SPECIMENOrdering Facility: [facility] Address: [address] [place] [address] Performed By: #### 5 0190-8, 2276-01 ####[facility] LABCLIA [id number] [place] [address] [place] Iron/TIBC [Molar ratio] <4.8 Low 15.0-57.0 [facility] Comment on above: Order Comment: Speci men Type: BLOOD SPECIMENOrdering Facility: [facility] Address: [address] [place] [address] Performed By: #### 5 0190-8, 2276-01 ####[facility] LABCLIA [id number] [place] [id number] [place] Reagin and Treponema pallidu m IgG and IgM [Interp]on 04-21-2025 T. pallidum IgG+IgM IA Ql (S) Non-Reactive Normal Nonreactive [facility] Comment on above: Order Comment: Speci men Type: BLOOD SPECIMENOrdering Facility: [facility] Address: [address] [place] [address] Performed By: #### 7 3752-8 ####[facility] LABCLIA [id number] [place] [address] [place] Reagin+T pallidum IgG+IgM Se rPl-Impon 04-21-2025 Reagin and Treponema pallidum IgG and IgM [Interp] Cannot exclude recent Treponemal infection if specimen collected within 7-10 days after appearance of suspect lesions or 2-3 weeks after an exposure. Clinical correlation is required. Normal [facility] Comment on above: Order Comment: Speci men Type: BLOOD SPECIMENOrdering Facility: [facility] Address: [address] [place] [address] Performed By: #### 7 3752-8 ####[facility] LABCLIA [id number] [address] [place] Jose 03-20-2025 [place]LE Telephone (OBGYWM) FEDERICA FIGUEROA ([id number]) 1990 F Date Time Provider Department 03/20/25 NAILA ESCOBAR During your visit today, we recorded the following information about you: Naila Escobar APRN.CNP 03/20/2025 4:10 PM Signed Please fax PFPT referral to [facility]. Naila Escobar APRN.Tricia Haynes RN 03/20/2025 4:27 PM Signed Faxed to [employer]. Tricia Perez RN Allergies As of Date: 03/20/2025 Noted Allergy Reaction PENICILLINS 09/19/2023 2 - Rash Date Reviewed: 03/20/2025 Reviewed by: Naila Escobar APRN.CNP - Fully Assessed Reason for Visit: PFPT [Other] Prescriptions as of 03/20/2025 - famotidine (PEPCID) 20 mg tablet Take 1 tablet by mouth two times a day. - PNV no.95/ferrous fum/folic ac ( ORAL) Take 2 Pieces of gum by mouth once daily. - ALBUTEROL INHALATION Inhale 2 Inhalations as instructed as needed (WHEEZING, SHORTNESS OF BREATH). Problem List As Of Date 03/20/2025 Noted Resolved Skin lesion of breast [L98.8] 11/25/2024 Obesity affecting in second trimester*11/25/2024 Asthma affecting in first trimester [*11/25/2024 Supervision of high risk in second tr*11/25/2024 Nausea and vomiting during [O21.9] 11/25/2024 History of depression [Z86.59] 11/25/2024 with uncertain dates in first trimest*11/25/2024 02/17/2025 Penicillin allergy [Z88.0] 11/25/2024 History of migraine headaches [Z86.69] 12/23/2024 Anemia complicating , first trimester *12/26/2024 Back pain affecting (HCC) [O99.891, M*03/20/2025 Encounter Status:Closed by TRICIA PEREZ on 03/20/25 Normal [facility] Examination level ultrasound on 02-17-2025 Indication Detailed anatomic survey Maternal obesity, BMI >35 Impression The patient is referred for a detailed anatomic survey. - Single, live, intrauterine . - biometry is consistent with the established gestational age. - No malformations were visualized on a complete detailed anatomic survey. - The amniotic fluid volume is normal amount. - The placenta is anterior, fundal. - The Transabdominal cervical length measures 42.5 mm with no evidence of funneling or other dynamic changes. - Not all structural malformations can be detected by ultrasound examination. Recommendations Additional follow-up as clinically indicated. Maternal Assessment Height 157 cm Height (ft) 5 ft Height (in) 2 in Physical Exam Initial weight (lb) 195 lb Initial BMI 35.67 kg/m Maternal assessment other: 2 Para 1 REMOTE READ Method Transabdominal ultrasound examination. View: Adequate visualization Price . Number of fetuses: 1 Dating GA by prior assessment 20 w + 0 d CAROLYN by prior assessment: 07/07/2025 Previous Ultrasound on: 11/25/2024 Type of prior assessment: CRL U/S measurement at prior assessment date 16.6 mm GA by previous U/S 20 w + 0 d CAROLYN by previous Ultrasound: 07/07/2025 Ultrasound examination on: 02/17/2025 GA by U/S based upon: AC, BPD, Femur, HC GA by U/S 20 w + 3 d CAROLYN by U/S: 07/04/2025 Assigned: based on ultrasound (CRL), selected on 12/23/2024 Assigned GA 20 w + 0 d Assigned CAROLYN: 07/07/2025 General Evaluation Cardiac activity present. FHR 141 bpm. movements: present. Presentation: cephalic Placenta: Placental site: posterior, fundal Umbilical cord: Cord vessels: 3 vessel cord Amniotic fluid: Amount of AF: normal amount. MVP 5.2 cm Growth Overview Exam date GA BPD (mm) HC (mm) AC (mm) FL (mm) HL (mm) EFW (g) 02/17/2025 20w 0d 45.3 37% 175.9 52% 165.7 89% 32.9 73% 31.8 77% 382 88% Biometry Standard BPD 45.3 mm 19w 5d 37% Hadlock OFD 63.5 mm 20w 2d 85% Nicolaides HC 175.9 mm 20w 1d 52% David Cerebellum tr 20.4 mm 19w 4d 61% Hill Nuchal fold 3.3 mm AC 165.7 mm 21w 4d 89% Hadlock Femur 32.9 mm 20w 3d 73% David Humerus 31.8 mm 20w 4d 77% David EFW 382 g 20w 5d 88% Hadlock EFW (lb) 0 lb EFW (oz) 13 oz EFW by: Hadlock (HC-AC-FL) Extended Motorbike Courier 5.7 mm CM 4.0 mm 18% Nicolaides Extremities / Bony Struc FL / HC 0.19 65% Hadlock Other Structures FHR 141 bpm Anatomy Cranium: normal Lateral ventricles: normal Choroid plexus: normal Midline falx: normal Cavum septi pellucidi: normal Cerebellum: normal Cisterna magna: normal Head / Neck Vermis: normal Neck: normal Nuchal fold: normal Lips: normal Profile: normal Nose: normal Face Maxilla: normal Mandible: normal Orbits: normal Lens: normal 4-chamber view: normal RVOT view: normal LVOT view: normal 3-vessel view: normal 8-[id number]-[id number] view: normal Heart / Thorax Situs: situs solitus (normal) Aortic arch view: normal SVC: normal IVC: normal Cardiac axis: normal Rt lung: normal Lt lung: normal Diaphragm: normal Cord insertion: normal Stomach: normal Kidneys: normal Bladder: normal Genitals: normal Abdomen Abdom. wall: normal Cervical spine: normal Thoracic spine: normal Lumbar spine: normal Sacral spine: normal Arms: normal Legs: normal Rt upper arm: normal Rt forearm: normal Rt hand: normal Rt fingers: normal Lt upper arm: normal Lt forearm: normal Lt hand: normal Lt fingers: normal Rt upper leg: normal Rt lower leg: normal Rt foot: normal Lt upper leg: normal Lt lower leg: normal Lt foot: normal Gender: Unspecified Wants to know sex: no Maternal Structures Uterus / Cervix Uterus: Visualized Cervix: Visualized Approach: Transabdominal Cervical length 42.5 mm Other: Patient declined transvaginal ultrasound for cervical length. Ovaries / Tubes / Adnexa Rt ovary: Visualized Lt ovary: Visualized Performed By: Norma Logan RDMS, RVT Read By: America Hammond M.D. MATERNAL MEDICINE [facility] Radiology Study observation (narrative) Yusef nam [facility] Jose 12-26-2024 LAVELLE Telephone (ROGEWSonido) FEDERICA FIGUEROA ([id number]) 1990 F Date Time Provider Department 12/26/24 NAILA ESCOBAR During your visit today, we recorded the following information about you: Tricia Perez, ROYER 12/26/2024 9:49 AM Signed Naila Escobar APRN.RETAIL MERCHANDISING COORDINATOR 12/26/24 7:17 AM Please notify patient: Anemic. 1. Increase iron rich foods in diet (I.e. Lean red meats, green leafy vegetables, beans/lentils or dried fruits) 2. Start an iron supplement now and take every other day or MWF. I recommend Ferrous Sulfate 325 mg by mouth 3. Take iron with a source of Vitamin C (orange juice) to help with absorption. 4. Avoid coffee, tea, milk at time the supplement is taken. 5. I recommend repeating blood work in 4-6 weeks. Naila Escobar APRN.Tricia Haynes RN 12/26/2024 9:49 AM Signed Pt notified of lab results. Also advised iron can cause constipation and to increase fiber in diet if noticing constipation and to make sure she eats something as well when taking iron to avoid stomach upset. CBC pended-did you want Pt to have anything else completed? And is it okay if Pt has completed prior to 01/20/25 appt? Pt also asking if she is able to use Ulike lasar hair removal-she also has an optional gel that she uses after. States she has not used since being , but wants to know if she is able to begin using. Please advise. ROYER Domínguez Emily, APRN.CNP 12/26/2024 10:31 AM Signed Does not need another CBC for 4-6 weeks. Lack of data on laser hair removal during . Would not recommend. Risk of heat and then skin is more sensitive during , making someone more prone to skin reactions/rashes Naila Escobar APRN.Tricia Haynes RN 12/26/2024 11:30 AM Signed Imonomi message sent to Pt. Tricia Perez RN Allergies As of Date: 12/26/2024 Noted Allergy Reaction PENICILLINS 09/19/2023 2 - Rash Date Reviewed: 12/23/2024 Reviewed by: Naila Escobar APRN.CNP - Fully Assessed Reason for Visit: Results [95] Primary Visit Diagnosis:Anemia during in first trimester [O99.011] Prescriptions as of 12/26/2024 - PNV no.95/ferrous fum/folic ac ( ORAL) Take 2 Pieces of gum by mouth once daily. - ALBUTEROL INHALATION Inhale 2 Inhalations as instructed as needed (WHEEZING, SHORTNESS OF BREATH). - aspirin, enteric coated (ECOTRIN LOW STRENGTH) 81 mg EC tablet Take 1 tablet by mouth once daily. Problem List As Of Date 12/26/2024 Noted Resolved Skin lesion of breast [L98.8] 11/25/2024 Obesity affecting in second trimester*11/25/2024 Asthma affecting in first trimester [*11/25/2024 Supervision of high risk in second tr*11/25/2024 Nausea and vomiting during [O21.9] 11/25/2024 History of depression [Z86.59] 11/25/2024 with uncertain dates in first trimest*11/25/2024 Penicillin allergy [Z88.0] 11/25/2024 History of migraine headaches [Z86.69] 12/23/2024 Anemia complicating , first trimester *12/26/2024 Encounter Status:Closed by TRICIA PEREZ on 12/26/24 Normal [facility] CARRIER SCREEN, STANDARDon 0 12-23-2024 CARRIER SCREEN RESULTS View results in Scanned Documents link when available. Normal [facility] Comment on above: Order Comment: Speci men Type: BLOOD SPECIMEN Ordering Facility: [facility] Address: [address] [place] [address] Performed By: #### C RRSCN #### [facility] CLIA [id number] [address] [place] [address] CBC W Auto Diff Bldon 2024 Hemoglobin (Bld) [Mass/Vol] 11.0 g/dL Low 11.5-15.5 [facility] Comment on above: Order Comment: Speci men Type: BLOOD SPECIMENOrdering Facility: [facility] Address: [address] [place] [address] Performed By: #### 5 7021-8 ####[facility] KARIMECLEVELAND CLINIC MENTOR HOSPITALDavis [id number] [place] [address] [place] Performed By: #### L [id number] ####[facility] LABCLIA [id number] [address] [place] CBC W Auto Differential pane l (Bld)on 12-23-2024 Basophils (Bld) [#/Vol] 10*3/uL Normal <0.11 C [facility] Comment on above: Order Comment: Speci men Type: BLOOD SPECIMENOrdering Facility: [facility] Address: [address] [place] [address] Performed By: #### 5 7021-8 ####[facility] IMPERIAL POINTWCOLIA [id number] [place] [address] [place] Basophils/100 WBC (Bld) 0.2 % Normal C [facility] Comment on above: Order Comment: Speci men Type: BLOOD SPECIMENOrdering Facility: [facility] Address: [address] [place] [address] Performed By: #### 5 7021-8 ####[facility] [id number] [place] [address] [place] Differential cell count method Nom (Bld) Auto Normal [facility] Comment on above: Order Comment: Speci men Type: BLOOD SPECIMENOrdering Facility: [facility] Address: [address] [place] [address] Performed By: #### 5 7021-8 ####[facility]ENTERA [id number] [place] [address] [place] Eosinophils (Bld) [#/Vol] 0.13 10*3/uL Normal <0.46 [facility] Comment on above: Order Comment: Speci men Type: BLOOD SPECIMENOrdering Facility: [facility] Address: [address] [place] [address] Performed By: #### 5 7021-8 ####[facility]ENTERA [id number] [place] [address] [place] Eosinophils/100 WBC (Bld) 1.3 % Normal [facility] Comment on above: Order Comment: Speci men Type: BLOOD SPECIMENOrdering Facility: [facility] Address: [address] [place] [address] Performed By: #### 5 7021-8 ####[facility] STEVERADHAA [id number] [place] [address] [place] Erythrocyte distribution width (RBC) [Ratio] 16.2 % High 11.5-15.0 [facility] Comment on above: Order Comment: Speci men Type: BLOOD SPECIMENOrdering Facility: [facility] Address: [address] [place] [address] Performed By: #### 5 7021-8 ####[facility]OSPITALNCA [id number] [place] [address] [place] Hematocrit (Bld) [Volume fraction] 35.2 % Low 36.0-46.0 [facility] Comment on above: Order Comment: Speci men Type: BLOOD SPECIMENOrdering Facility: [facility] Address: [address] [place] [address] Performed By: #### 5 7021-8 ####[facility] [id number] [place] [address] [place] Immature granulocytes (Bld) [#/Vol] 0.03 10*3/uL Normal <0.10 [facility] Comment on above: Order Comment: Speci men Type: BLOOD SPECIMENOrdering Facility: [facility] Address: [address] [place] [address] Performed By: #### 5 7021-8 ####[facility] HOSPITALLIA [id number] [place] [address] [place] Immature granulocytes/100 WBC (Bld) 0.3 % Normal [facility] Comment on above: Order Comment: Speci men Type: BLOOD SPECIMENOrdering Facility: [facility] Address: [address] [place] [address] Performed By: #### 5 7021-8 ####[facility] HOSPITALA [id number] [place] [address] [place] Lymphocytes (Bld) [#/Vol] 2.53 10*3/uL Normal 1.00-4.00 [facility] Comment on above: Order Comment: Speci men Type: BLOOD SPECIMENOrdering Facility: [facility] Address: [address] [place] [address] Performed By: #### 5 7021-8 ####[facility] [id number] [place] [address] [place] Lymphocytes/100 WBC (Bld) 24.4 % Normal [facility] Comment on above: Order Comment: Speci men Type: BLOOD SPECIMENOrdering Facility: [facility] Address: [address] [place] [address] Performed By: #### 5 7021-8 ####[facility]ITALNC[facility] [id number] [place] [address] [place] MCH (RBC) [Entitic mass] 22.0 pg Low 26.0-34.0 [facility] Comment on above: Order Comment: Speci men Type: BLOOD SPECIMENOrdering Facility: [facility] Address: [address] [place] [address] Performed By: #### 5 7021-8 ####[facility] HOSPITALNCLI [id number] [place] [address] [place] MCHC (RBC) [Mass/Vol] 31.3 g/dL Normal 30.5-36.[address] [facility] Comment on above: Order Comment: Speci men Type: BLOOD SPECIMENOrdering Facility: [facility] Address: [address] [place] [address] Performed By: #### 5 7021-8 ####[facility]OSPITALNCLIA [id number] [place] [address] [place] MCV (RBC) [Entitic vol] 70.3 fL Low 80.0-100.0 C [facility] Comment on above: Order Comment: Speci men Type: BLOOD SPECIMENOrdering Facility: [facility] Address: [address] [place] [address] Performed By: #### 5 7021-8 ####[facility] [id number] [place] [address] [place] Monocytes (Bld) [#/Vol] 0.57 10*3/uL Normal <0.87 [facility] Comment on above: Order Comment: Speci men Type: BLOOD SPECIMENOrdering Facility: [facility] Address: [address] [place] [address] Performed By: #### 5 7021-8 ####[facility] [id number] [place] [address] [place] Monocytes/100 WBC (Bld) 5.5 % Normal C [facility] Comment on above: Order Comment: Speci men Type: BLOOD SPECIMENOrdering Facility: [facility] Address: [address] [place] [address] Performed By: #### 5 7021-8 ####[facility] [id number] [place] [address] [place] Neutrophils (Bld) [#/Vol] 7.11 10*3/uL Normal 1.45-7.50 [facility] Comment on above: Order Comment: Speci men Type: BLOOD SPECIMENOrdering Facility: [facility] Address: [address] [place] [address] Performed By: #### 5 7021-8 ####[facility] [id number] [place] [address] [place] Neutrophils/100 WBC (Bld) 68.3 % Normal [facility] Comment on above: Order Comment: Speci men Type: BLOOD SPECIMENOrdering Facility: [facility] Address: [address] [place] [address] Performed By: #### 5 7021-8 ####[facility] JEVONNCLIA [id number] [place] [address] [place] Nucleated RBC (Bld) [#/Vol] 10*3/uL Normal <0.01 [facility] Comment on above: Order Comment: Speci men Type: BLOOD SPECIMENOrdering Facility: [facility] Address: [address] [place] [address] Performed By: #### 5 7021-8 ####[facility] HOSPITALNCLIA [id number] [place] [address] [place] Nucleated RBC/100 WBC (Bld) [Ratio] 0.0 /100 WBC Normal [facility] Comment on above: Order Comment: Speci men Type: BLOOD SPECIMENOrdering Facility: [facility] Address: [address] [place] [address] Performed By: #### 5 7021-8 ####[facility] HOSPITALNCLIA [id number] [place] [address] [place] Platelet mean volume (Bld) [Entitic vol] 9.1 fL Normal 9.0-12.7 [facility] Comment on above: Order Comment: Speci men Type: BLOOD SPECIMENOrdering Facility: [facility] Address: [address] [place] [address] Performed By: #### 5 7021-8 ####[facility] HOSPITALNCLIA [id number] [place] [address] [place] Platelets (Bld) [#/Vol] 376 10*3/uL Normal 150-400 [facility] Comment on above: Order Comment: Speci men Type: BLOOD SPECIMENOrdering Facility: [facility] Address: [address] [place] [address] Performed By: #### 5 7021-8 ####[facility]ITALNC[facility] [id number] [place] [address] [place] RBC (Bld) [#/Vol] 5.01 10*6/uL Normal 3.90-5.20 [facility] Comment on above: Order Comment: Speci men Type: BLOOD SPECIMENOrdering Facility: [facility] Address: [address] [place] [address] Performed By: #### 5 7021-8 ####[facility] KARIME STEVEOWATONNA CLINICDavis [id number] [place] [address] [place] WBC (Bld) [#/Vol] 10.39 10*3/uL Normal 3.70-11.00 [facility] Comment on above: Order Comment: Speci men Type: BLOOD SPECIMENOrdering Facility: [facility] Address: [address] [place] [address] Performed By: #### 5 7021-8 ####[facility] STEVEOWATONNA CLINICDavis [id number] [place] [address] [place] Examination level ultrasound on 12-23-2024 Indication First trimester anatomic survey. Maternal obesity, BMI >30 Impression REMOTE READ The patient is referred for a first trimester anatomy scan including nuchal translucency measurement as clinically indicated. - Single, live, intrauterine . - [place] rump length measurement is consistent with the established gestational age. - A qualitative screen of the nuchal translucency and other anatomic structures was unremarkable on a complete first trimester anatomic assessment. - Not all structural malformations can be detected by ultrasound examination. Recommendations - A standard anatomic survey at 16 weeks can be offered and a detailed exam at 20 weeks is recommended for increased risk. Maternal Assessment Height 157 cm Height (ft) 5 ft Height (in) 2 in Physical Exam Initial weight (lb) 195 lb Initial BMI 35.67 kg/m Method Transabdominal ultrasound examination Price . Number of fetuses: 1 Dating GA by prior assessment 12 w + 0 d CAROLYN by prior assessment: 07/07/2025 Previous Ultrasound on: 11/25/2024 Type of prior assessment: CRL U/S measurement at prior assessment date 16.6 mm GA by previous U/S 12 w + 0 d CAROLYN by previous Ultrasound: 07/07/2025 Ultrasound examination on: 12/23/2024 GA by U/S based upon: CRL GA by U/S 12 w + 5 d CAROLYN by U/S: 07/02/2025 Assigned: based on ultrasound (CRL), selected on 12/23/2024 Assigned GA 12 w + 0 d Assigned CAROLYN: 07/07/2025 General Evaluation Cardiac activity present Placenta: posterior Cord vessels: 3 vessel cord Amniotic fluid: normal amount Biometry Standard CRL 62.6 mm 12w 5d 86% [place] First Trimester Anatomy Calvarium: normal Falx cerebri: normal Choroid plexus: normal Profile: normal Nasal bone: normal Retronasal triangle: normal Maxilla: normal Mandible: normal Nuchal translucency: Unremarkable Situs: normal Cardiac position: normal Cardiac axis: normal 4-chamber view: suboptimal 4-chamber view with color: normal [id number] view: normal Abdominal cord insertion: normal Stomach: normal Kidneys: normal Color doppler of renal vessels: normal Bladder: normal Color doppler of perivesical umbilical arteries: normal Vertebral alignment: normal Arms: normal Hands: normal Legs: normal Feet: normal Maternal Structures Uterus / Cervix Uterus: Visualized Uterus position: retroverted, axial Ovaries / Tubes / Adnexa Rt ovary: Visualized Lt ovary: Visualized Lt ovarian corpus luteum: hemorrhagic Lt ovarian corpus luteum D1 22.0 mm Lt ovarian corpus luteum D2 16.0 mm Lt ovarian corpus luteum D3 22.0 mm Performed By: Alba Pinto RDMS Read By: America Hammond M.D. MATERNAL MEDICINE [facility] Radiology Study observation (narrative) [facility] Ferritin SerPl-mCncon 2024 Ferritin [Mass/Vol] 6.6 ng/mL Low 14.7-205.1 [facility] Comment on above: Order Comment: Speci men Type: BLOOD SPECIMENOrdering Facility: [facility] Address: [address] [place] [address] Performed By: #### L [id number], 2276-4, SHANDRA ####[facility] LABCLIA [id number] [place] [address] [place] HBV surface Ag Ser Qlon 12-01 HBV surface Ag Ql (S) Negative Normal Negative [facility] Comment on above: Order Comment: Speci men Type: BLOOD SPECIMENOrdering Facility: [facility] Address: [address] [place] [address] Performed By: #### 5 195-3, 10154-9, 27127-6 ####[facility] LABCLIA [id number] [address] [place] HCV Ab Ser Qlon 12-23-2024 HCV Ab Ql (S) Negative Normal Negative [facility] Comment on above: Order Comment: Speci men Type: BLOOD SPECIMENOrdering Facility: [facility] Address: [address] [place] [address] Result Comment: The result suggests no evidence of active infection with Hepatitis C virus. Should recent infection be suspected, repeat testing may be considered 4-6 weeks after this draw. Performed By: #### 1 6128-1 ####[facility] LABCLIA [id number] [place] [address] [place] HGB ELECTROPHORESIS FOR EVAL (LAB ORDER)on 12-23-2024 Hemoglobin A (Bld) [Mass fraction] 97.8 % Normal 96.2-98.0 [facility] Comment on above: Order Comment: Speci men Type: BLOOD SPECIMENOrdering Facility: [facility] Address: [address] [place] [address] Performed By: #### L [id number], 2276-4, HGBELEV ####[facility] LABCLIA [id number] [place] [address] [place] Hemoglobin A2 (Bld) [Mass fraction] 2.2 % Normal 2.0-3.1 [facility] Comment on above: Order Comment: Speci men Type: BLOOD SPECIMENOrdering Facility: [facility] Address: [address] [place] [address] Performed By: #### L [id number], 6-4, HGBELEV ####[facility] LABCLIA [id number] [address] [place] [address] [place] Hemoglobin Unsp Elph (Bld) [Mass fraction] No abnormal hemoglobin identified. Normal No abnormal hemoglobin identified. [facility] Comment on above: Order Comment: Speci men Type: BLOOD SPECIMENOrdering Facility: [facility] Address: [address] [place] [address] Performed By: #### L [id number], 6-4, HGBELEV ####[facility] LABIA [id number] [address] [place] [address] [place] HGB EVALUATION CASCADE INTER Marco Antonio 12-23-2024 Hemoglobin pattern (Bld) [Interp] Reviewed by Shmuel Walker MD Normal [facility] Comment on above: Order Comment: Speci men Type: BLOOD SPECIMENOrdering Facility: [facility] Address: [address] [place] [address] Performed By: #### L [id number], 6-4, HGBELEV ####[facility] [id number] [place] [address] [place] INTERPRETATION (HGB EVAL) Normal [facility] Comment on above: Order Comment: Speci men Type: BLOOD SPECIMENOrdering Facility: [facility] Address: [address] [place] [address] Result Comment: Hemo globins were analyzed by capillary electrophoresis and CBC red cell parameters were reviewed. There is a normal capillary electrophoresis pattern with microcytic anemia. Ferritin testing remains in process and results will be reported separately. Correlation with the clinical findings is suggested. If iron deficiency is excluded, the possibility of alpha thalassemia trait could be considered. PCR studies for alpha thalassemia gene deletions may be useful in such a setting, if clinically indicated. Performed By: #### L LI1770, 2276-4, HGBELEV ####[facility] LABIA [id number] [address] [place] [address] [place] HIV 1+2 Ab IA Qlon 02-24-202 5 HIV 1 and 2 Ab IA.rapid Nom (S/P/Bld) Normal [facility] Comment on above: Order Comment: Speci men Type: BLOOD SPECIMENOrdering Facility: [facility] Address: [address] [place] [address] Result Comment: Test not indicated. Performed By: #### 5 195-3, 89341-9, 76309-3 ####[facility] LABCLIA [id number] [address] STATES OF [facility] HIV 1+2 Ab+HIV1 p24 Ag IA Ql Non-Reactive Normal Nonreactive [facility] Comment on above: Order Comment: Speci men Type: BLOOD SPECIMENOrdering Facility: [facility] Address: [address] [place] [address] Performed By: #### 5 195-3, 83989-8, 64256-3 ####[facility]PITALIA [id number] [address] STATES [facility] HIV immunoassay testing algorithm interpretation (S/P/Bld) [Interp] Normal [facility] Comment on above: Order Comment: Speci men Type: BLOOD SPECIMENOrdering Facility: [facility] Address: [address] [place] [address] Result Comment: No e vidence of HIV-1 or HIV-2 infection. Should recent infection be suspected, repeat testing may be considered 2-3 weeks after this draw. [place] Rev. Code 3701.243(E): This information has been disclosed to you from confidential records protected from disclosure by state law. ???You shall make no further disclosure of this information without the specific, written, and informed release of the individual to whom it pertains or as otherwise permitted by state law. A general authorization for the release of medical or other information is not sufficient for the purpose of the release of HIV test results or diagnoses. Performed By: #### 5 195-3, 57758-0, 19521-6 ####[facility] LABIA [id number] [address] [address] [place] HbA1c (Bld)on 12-23-2024 Average glucose Estimated from glycated hemoglobin (Bld) [Mass/Vol] 100 mg/dL Normal [facility] Comment on above: Order Comment: Benjamin men Type: BLOOD SPECIMENOrdering Facility: [facility] Address: [address] [place] [address] Result Comment: eAG: (Estimated average glucose) is a calculated value from HgbA1c and is healthcare sales representative of the average blood glucose level in the last 2-3 month period. Performed By: #### 5 5454-3 ####[facility] LABCLIA [id number] [place] [address] [place] HbA1c (Bld) [Mass fraction] 5.1 % Normal 4.3-5.6 [facility] Comment on above: Order Comment: Benjamin buckley Type: BLOOD SPECIMENOrdering Facility: [facility] Address: [address] [place] [address] Result Comment: [place] Diabetes Association guidelines indicate that patients with HgbA1c in the range 5.7-6.4% are at increased risk for development of diabetes, and intervention by lifestyle modification may be beneficial. HgbA1c greater or equal to 6.5% is considered diagnostic of diabetes. Performed By: #### 5 5454-3 ####[facility] LABCLIA [id number] [place] [address] [place] [id number] PLUSon 12-23-2024 Cell-free DNA./Cell-free DNA.total Dosage of chromosome-specific cfDNA (cfDNA) [Molar fraction] 19% Normal [facility] Comment on above: Order Comment: Benjamin buckley Type: BLOOD SPECIMEN [facility] Facility: [facility] Address: [address] [place] [address] Performed By: #### C RRS #### [facility] CLIA [id number] [facility] [place] [address] Chr 13+18+21+X+Y aneuploidy Dosage of chromosome-specific cfDNA Ql (cfDNA) Negative Normal [facility] Comment on above: Order Comment: Benjamin men Type: BLOOD SPECIMEN Ordering Facility: [facility] Address: [address] [place] [address] Performed By: #### C RRSCN #### [facility] CLIA [id number] [address] [place] [address] Chr 21 trisomy Dosage of chromosome-specific cfDNA Ql (cfDNA) Negative Normal [facility] Comment on above: Order Comment: Speci men Type: BLOOD SPECIMEN Ordering Facility: [facility] Address: [address] [place] [address] Performed By: #### C RRSCN #### [facility] CLIA [id number] [address] [place] [address] Chr X and Y aneuploidy risk Sequencing Ql (cfDNA) [Interp] Not detected Normal [facility] Comment on above: Order Comment: Speci men Type: BLOOD SPECIMEN Ordering Facility: [facility] Address: [address] [place] [address] Result Comment: Not Detected Not Detected Performed By: #### C RRSCN #### [facility] CLIA [id number] [address] [place] [address] Citation Virgilio (Reference lab test) Comment Normal [facility] Comment on above: Order Comment: Speci men Type: BLOOD SPECIMEN Ordering Facility: [facility] Address: [address] [place] [address] Result Comment: 1. [place] ANDERSON, et al. Corrie Med. 2012;14(3):296-305. 2. [place] PARRA, et al. Prenat Diag. 2013;33(6):591-597. 3. Stoney Santos, et al. Clin Chem. 2015 Apr;61(4):608-616. 4. Mark ANDERSON et al. Corrie Med. 2011;13(11):913-920. 5. ACOG/SMFM Practice Bulletin No. 226, Jul 2020. Performed By: #### C RRSCN #### [facility] CLIA [id number] [address] [place], [place] [address] Gestational age Estimated from conception date Price Normal [facility] Comment on above: Order Comment: Speci men Type: BLOOD SPECIMEN Ordering Facility: [facility] Address: [address] [place] [address] Performed By: #### C RRSCN #### [facility] CLIA [id number] [address] [place] [address] GESTATIONALAGE AGE > OR = 9W Yes Normal [facility] Comment on above: Order Comment: Benjamin buckley Type: BLOOD SPECIMEN Ordering Facility: [facility] Address: [address] [place] [address] Performed By: #### C RRSCN #### [facility] CLIA [id number] [address] [place], [place] [address] Laboratory comment Virgilio (Report) Comment Normal [facility] Comment on above: Order Comment: Benjamin buckley Type: BLOOD SPECIMEN Ordering Facility: [facility] Address: [address] [place] [address] Result Comment: The MaterniT(R) 21 PLUS laboratory-developed test (LDT) analyzes circulating cell-free DNA from a maternal blood sample. This test is used for screening purposes and not diagnostic. Clinical correlation is recommended. Validation data on twin pregnancies is limited and the ability of this test to detect aneuploidy in higher multiple gestations has not yet been validated. Performed By: #### C RRSCN #### [facility] CLIA [id number] [address] [place], [place] [address] program director/traffic director name Nom (Provider) Comment Normal [facility] Comment on above: Order Comment: Benjamin buckley Type: BLOOD SPECIMEN Ordering Facility: [facility] Address: [address] [place] [address] Result Comment: This specimen showed an expected representation of chromosome 21, 18 and 13 material. Clinical correlation is suggested. Comment Jimbo Cagle MD, PhD, Director, [employer] Performed By: #### C RRSCN #### [facility] CLIA [id number] [address] [place], [place] [address] LIMITATIONS OF THE TEST Comment Normal [facility] Comment on above: Order Comment: Benjamin buckley Type: BLOOD SPECIMEN Ordering Facility: [facility] Address: [address] [place] [address] Result Comment: Whil e the results of these tests are highly reliable, discordant results, including inaccurate sex prediction, may occur due to placental, maternal, or mosaicism or neoplasm; vanishing twin; prior maternal organ transplant; or other causes. These tests are screening tests and not diagnostic; they do not replace the accuracy and precision of diagnosis with CVS or amniocentesis. A patient with a positive test result should be referred for genetic counseling and offered invasive diagnosis for confirmation of test results.[5] The results of this testing, including the benefits and limitations, should be discussed with a qualified healthcare provider. management decisions, including termination of the , should not be based on the results of these tests alone. The healthcare provider is responsible for the use of this information in the management of their patient. Sex chromosomal aneuploidies are not reportable for known multiple gestations. A negative result does not ensure an unaffected nor does it exclude the possibility of other chromosomal abnormalities or defects which are not a part of these tests. An uninformative result may be reported, the causes of which may include, but are not limited to, insufficient sequencing coverage, noise or artifacts in the region, amplification or sequencing bias, or insufficient fraction. These tests are not intended to identify pregnancies at risk for neural tube defects or ventral wall defects. Testing for whole chromosome abnormalities (including sex chromosomes) and for subchromosomal abnormalities could lead to the potential discovery of both and maternal genomic abnormalities that could have major, minor, or no, clinical significance. Evaluating the significance of a positive or a non-reportable result may involve both invasive testing and additional studies on the mother. Such investigations may lead to a diagnosis of maternal chromosomal or subchromosomal abnormalities, which on occasion may be associated with benign or malignant maternal neoplasms. These tests may not accurately identify triploidy, balanced rearrangements, or the precise location of subchromosomal duplications or deletions; these may be detected by diagnosis with CVS or amniocentesis. The ability to report results may be impacted by maternal BMI, maternal weight, maternal systemic lupus erythematosus (SLE) and/or by certain pharmaceutical agents such as low molecular weight heparin (for example: Lovenox(R), Xaparin(R), Clexane(R) and Fragmin(R)). Performed By: #### C RRSCN #### [facility] CLIA [id number] [address] [place] [address] Monosomy X risk Dosage of chromosome-specific cfDNA Ql (Plasma cell-free+WBC DNA) [Interp] Not detected Normal [facility] Comment on above: Order Comment: Benjamin buckley Type: BLOOD SPECIMEN Ordering Facility: [facility] Address: [address] [place] [address] Performed By: #### C RRSCN #### [facility] CLIA [id number] [address] [place] [address] NEGATIVE PREDICTIVE VALUE Note Normal [facility] Comment on above: Order Comment: Benjamin buckley Type: BLOOD SPECIMEN Ordering Facility: [facility] Address: [address] [place] [address] Result Comment: The Negative Predictive Value (NPV) for trisomy 21, 18, and 13 is greater than 99%. The NPV for SCA and ESS cannot be calculated as SCA and ESS are only reported when an abnormality is detected. Performed By: #### C RRSCN #### [facility] CLIA [id number] [address] [place] [address] PERFORMANCE CHARACTERISTICS Note Normal [facility] Comment on above: Order Comment: Benjamin [facility] Type: BLOOD SPECIMEN Ordering Facility: [facility] Address: [address] [place] [address] Result Comment: ! Sex ! Accuracy: 99.4% ! ! ! ! Region (associated syndrome) ! Est. Sens# ! Est. Spec ! ! ! ! Trisomy 21 (Down Syndrome) ! 99.1% ! 99.9% ! ! ! ! Trisomy 18 (Nolasco Syndrome) ! >99.9% ! 99.6% ! ! ! ! Trisomy 13 (Patau Syndrome) ! 91.7% ! 99.7% ! ! ! ! Sex Chromosome Aneuploidies## ! 96.2% ! 99.7% ! ! ! * As reported [facility] database nstd37 [https://www.ncbi.nlm.nih.gov/dbvar/studies/nstd37/ ] # Estimated Sensitivity. Sensitivity estimated across the observed size distribution of each syndrome [per ISC[employer] database nstd37] and across the range of fractions observed in routine clinical NIPT. Actual sensitivity can also be influenced by other factors such as the size of the event, total sequence counts, amplification bias, or sequence bias. ## Price gestation only. Performed By: #### C RRSCN #### [facility] CLIA [id number] [address] [place] [address] POSITIVE PREDICTIVE VALUE N/A Normal [facility] Comment on above: Order Comment: Speci men Type: BLOOD SPECIMEN Ordering Facility: [facility] Address: [address] [place] [address] Performed By: #### C RRSCN #### [facility] CLIA [id number] [address] [place] [address] Reference Lab Test Method Comment Normal [facility] Comment on above: Order Comment: Speci men Type: BLOOD SPECIMEN Ordering Facility: [facility] Address: [address] [place] [address] Result Comment: See Notes Circulating cell-free DNA was purified from the plasma component of maternal blood. The extracted DNA was then converted into a genomic DNA library for aneuploidy analysis of chromosomes 21, 18, and 13 via next generation sequencing.[1] Optional findings based on the test order include sex chromosome aneuploidy (SCA)[2], and enhanced sequencing series (ESS)[3], which will only be reported on as an additional finding when an abnormality is detected. SCA testing includes information on X and Y representation, while ESS testing includes deletions in selected regions (22q, 15q, 11q, 8q, 5p, 4p, 1p) and trisomy of chromosomes 16 and 22. Performed By: #### C RRSCN #### [facility] CLIA [id number] [address] [place] [address] Service comment (Unsp spec) [Interp] Comment Normal [facility] Comment on above: Order Comment: Speci men Type: BLOOD SPECIMEN Ordering Facility: [facility] Address: [address] [place] [address] Result Comment: See Notes [employer] is a subsidiary of [employer], using the brand [employer] ([employer]). This test was developed and its performance characteristics determined by [employer] ([employer]). It has not been cleared or approved by the Food and Drug Administration. This laboratory is certified under the Clinical Laboratory Improvement Amendments (CLIA) as qualified to perform high complexity clinical laboratory testing and accredited by the [employer] (CAP). If there is future clinical need for adding MaterniT GENOME testing, this specimen will be available until term. [facility] samples will not be retained beyond 60 days. [facility] patients will have to send a new sample for re-sequencing ([facility] Test Code: [id number]). Performed By: #### C RRSCN #### [facility] CLIA [id number] [address] [place] [address] Sex Dosage of chromosome-specific cfDNA Nom (cfDNA) Comment Normal [facility] Comment on above: Order Comment: Speci men Type: BLOOD SPECIMEN Ordering Facility: [facility] Address: [address] [place] [address] Result Comment: Cons istent with Female Performed By: #### C RRSCN #### [facility] CLIA [id number] [address] [place] [address] Test performance information Virgilio (Unsp spec) Comment Normal [facility] Comment on above: Order Comment: Speci men Type: BLOOD SPECIMEN Ordering Facility: [facility] Address: [address] [place] [address] Result Comment: The performance characteristics of the MaterniT(R) 21 PLUS laboratory-developed test (LDT) have been determined in a clinical validation study with women at increased risk for chromosomal aneuploidy.[1-4] Performed By: #### C RRSCN #### [facility] CLIA [id number] [address] [place] [address] Trisomy 13 risk Dosage of chromosome-specific cfDNA Ql (cfDNA) [Interp] Negative Normal [facility] Comment on above: Order Comment: Speci men Type: BLOOD SPECIMEN Ordering Facility: [facility] Address: [address] [place] [address] Performed By: #### C RRSCN #### [facility] CLIA [id number] [address] [place] [address] Trisomy 18 risk Dosage of chromosome-specific cfDNA Ql (Plasma cell-free+WBC DNA) [Interp] Negative Normal [facility] Comment on above: Order Comment: Speci men Type: BLOOD SPECIMEN Ordering Facility: [facility] Address: [address] [place] [address] Performed By: #### C RRSCN #### [facility] CLIA [id number] [address] [place] [address] RBC PARAMETERS FOR HB IDon 0 2-24-2024 Erythrocyte distribution width (RBC) [Ratio] 16.3 % High 11.5-15.0 [facility] Comment on above: Order Comment: Speci men Type: BLOOD SPECIMENOrdering Facility: [facility] Address: [address] [place] [address] Performed By: #### L [id number] ####[facility] [id number] [place] [address] [place] Hematocrit (Bld) [Volume fraction] 35.7 % Low 36.0-46.0 [facility] Comment on above: Order Comment: Speci men Type: BLOOD SPECIMENOrdering Facility: [facility] Address: [address] [place] [address] Performed By: #### L [id number] ####[facility] LABIA [id number] [place] [address] [place] MCH (RBC) [Entitic mass] 22.1 pg Low 26.0-34.0 [facility] Comment on above: Order Comment: Speci men Type: BLOOD SPECIMENOrdering Facility: [facility] Address: [address] [place] [address] Performed By: #### L [id number] ####[facility] LABIA [id number] [place] [address] [place] MCHC (RBC) [Mass/Vol] 30.8 g/dL Normal 30.5-36.[address] [facility] Comment on above: Order Comment: Speci men Type: BLOOD SPECIMENOrdering Facility: [facility] Address: [address] [place] [address] Performed By: #### L [id number] ####[facility] LABIA [id number] [place] [address] [place] MCV (RBC) [Entitic vol] 71.7 fL Low 80.0-100.0 C [facility] Comment on above: Order Comment: Speci men Type: BLOOD SPECIMENOrdering Facility: [facility] Address: [address] [place] [address] Performed By: #### L [id number] ####[facility] LABIA [id number] [place] [address] [place] RBC (Bld) [#/Vol] 4.98 10*6/uL Normal 3.90-5.20 [facility] Comment on above: Order Comment: [facility] Type: BLOOD SPECIMENOrdering Facility: [facility] Address: [address] [place] [address] Performed By: #### L [id number] ####[facility] LAB[facility]IA [id number] [place] [address] [place] RUBELLA IGG ANTIBODYon 12-23 RUBELLA IGG AB, QUAL Positive Normal Positive [facility] Comment on above: Order Comment: Benjamin [facility] Type: BLOOD SPECIMEN Ordering Facility: [facility] Address: [address] [place] [address] Result Comment: The result suggests recent or past exposure to Rubella virus or history of Rubella vaccination. Positive result may also be seen due to presence of passively-transferred antibodies. Please correlate with patient's history. Performed By: #### R UBIGG #### [facility] CLIA [id number] [address] [place] [address] [place] Reagin and Treponema pallidu m IgG and IgM [Interp]on 12-23-2024 T. pallidum IgG+IgM IA Ql (S) Non-Reactive Normal Nonreactive [facility] Comment on above: Order Comment: Benjamin [facility] Type: BLOOD SPECIMENOrdering Facility: [facility] Address: [address] [place] [address] Performed By: #### 5 195-3, 93474-0, 23592-4 ####[facility] LAB[facility]IA [id number] [place] [address] [place] Reagin+T pallidum IgG+IgM Se rPl-Impon 12-23-2024 Reagin and Treponema pallidum IgG and IgM [Interp] Cannot exclude recent Treponemal infection if specimen collected within 7-10 days after appearance of suspect lesions or 2-3 weeks after an exposure. Clinical correlation is required. Normal [facility] Comment on above: Order Comment: [facility] Type: BLOOD SPECIMENOrdering Facility: [facility] Address: [address] [place], [place] [address] Performed By: #### 5 195-3, 70594-1, 56181-6 ####[facility] LABCLIA [id number] [place] [address] [place] TYPE + SCREEN PRENATALon ABO B Normal [facility] Comment on above: Order Comment: Speci men Type: BLOOD SPECIMEN Ordering Facility: [facility] Address: [address] [place] [address] Performed By: #### C RRSCN #### [facility] CLIA [id number] [address] [place] [address] Rh Nom (Bld) Positive Normal [facility] Comment on above: Order Comment: Speci men Type: BLOOD SPECIMEN Ordering Facility: [facility] Address: [address] [place] [address] Performed By: #### C RRSCN #### [facility] CLIA [id number] [address] [place] [address] TYPE AND SCREEN EXPIRATION 12/26/2024 23:59 Normal [facility] Comment on above: Order Comment: Speci men Type: BLOOD SPECIMEN Ordering Facility: [facility] Address: [address] [place] [address] Performed By: #### C RRSCN #### [facility] CLIA [id number] [address] [place] [address] Bacteria Ur Culton Bacteria identified Cx Nom (U) ORGANISM ID: 1 10,000 -<50,000 CFU/ml Normal urogenital danyelle Normal [facility] Comment on above: Performed By: #### 6 30-4 ####[facility]IA [id number] [place] [address] [place] UA DIP, URINE (POC)on 2024 BILIRUBIN UA (POCT) Negative Negative [facility] CLARITY UA (POCT) Clear [facility] COLOR UA (POCT) Yellow [facility] GLUCOSE UA (POCT) Negative Negative mg/dL [facility] Hemoglobin Ql (U) Negative Negative [facility] Interpretation and review of laboratory results Abnormal [facility] KETONE UA (POCT) Negative Negative mg/dL [facility] LEUKOCYTES UA (POCT) Negative Negative [facility] NITRITE UA (POCT) Negative Negative [facility] PH UA (POCT) 6 4.5 - 8.0 [facility] Protein Ql (U) Trace Abnormal Negative mg/dL [facility] SPECIFIC GRAVITY UA (POCT) >=1.030 1.005 - 1.030 [facility] UROBILINOGEN UA (POCT) 0.2 Normal E.U./d L [facility] Location:[facility], [address], [place], [address] [facility] POINT OF CARE [facility] Bacteria Ur Culton 5 Bacteria identified Cx Nom (U) ORGANISM ID: 1 10,000 -<50,000 CFU/ml Normal urogenital danyelle Normal [facility] Comment on above: Performed By: #### 6 30-4 ####[facility]IA [id number] [place] [address] [place] C. trachomatis+N. gonorrhoea e DNA SLAVA+probe Ql (Unsp spec)on 11-25-2024 C. trachomatis rRNA SLAVA+probe Ql (Unsp spec) Not detected Normal Not detected [facility] Comment on above: Order Comment: Speci men Type: SWABOrdering Facility: [facility] Address: [address] [place] [address] Performed By: #### 3 6902-5 ####[facility] LABCLIA [id number] [place] [address] [place] N. gonorrhoeae rRNA SLAVA+probe Ql (Unsp spec) Not detected Normal Not detected [facility] Comment on above: Order Comment: Speci men Type: SWABOrdering Facility: [facility] Address: [address] [place] [address] Performed By: #### 3 6902-5 ####[facility] LABCLIA [id number] [place] [address] [place] HIGH RISK HUMAN PAPILLOMA RODNEY (HPV), PCR FOR DETECTION AND GENOTYPINGon 11-25-2024 HPV 16 Ag Ql (Unsp spec) Not detected Normal Not detected [facility] Comment on above: Order Comment: Speci men Type: FLUID SPECIMENOrdering Facility: [facility] Address: [address] [place] [address] Performed By: #### H PVHRT ####[facility] LABCLIA [id number] [place] [address] [place] HPV 18 Ag Ql (Unsp spec) Not detected Normal Not detected [facility] Comment on above: Order Comment: Speci men Type: FLUID SPECIMENOrdering Facility: [facility] Address: [address] [place] [address] Performed By: #### H PVHRT ####[facility]CLIA [id number] [place] [address] [place] HPV 31+33+35+39+45+51+52+56 +58+59+66+68 DNA SLAVA+probe Ql (Cvx) Not detected Normal Not detected [facility] Comment on above: Order Comment: Speci men Type: FLUID SPECIMENOrdering Facility: [facility] Address: [address] [place] [address] Result Comment: High Risk HPV Other Type includes HPV types 31, 33, 35, 39, 45, 51, 52, 56, 58, 59, 66 and 68. Performed By: #### H PVHRT ####[facility] LABCLIA [id number] [place] [address] [place] PAP TESTon 11-25-2024 ADEQUACY Normal [facility] Comment on above: Order Comment: Speci men Type: BLOOD SPECIMEN Ordering Facility: [facility] Address: [address] [place] [address] Result Comment: Sati sfactory for interpretation. No endocervical component Performed By: #### C RRSCN #### [facility] CLIA [id number] [address] [place] [address] CASE REPORT Normal [facility] Comment on above: Order Comment: Speci men Type: BLOOD SPECIMEN Ordering Facility: [facility] Address: [address] [place] [address] Result Comment: Gyne cologic Cytology Report Case: [id number] Authorizing Provider: Naila Escobar APRN.RETAIL MERCHANDISING COORDINATOR Collected: 11/25/2024 09:58 AM Ordering Location: OB/Gynecology Received: 11/25/2024 12:08 PM First Screen: Kerry Kay, ISABELLE, ASCP Specimen: Pap Test, ThinPrep, Cervix Performed By: #### C RRSCN #### [facility] CLIA [id number] [address] [place] [address] CLINICAL HISTORY, CYTOLOGY, TESTING COORDINATOR (Indicate Weeks) Normal [facility] Comment on above: Order Comment: Speci men Type: BLOOD SPECIMEN Ordering Facility: [facility] Address: [address] [place] [address] Performed By: #### C RRSCN #### [facility] CLIA [id number] [address] [place], [place] [id number] FINAL PERFORMING LAB Normal [facility] Comment on above: Order Comment: Speci men Type: BLOOD SPECIMEN Ordering Facility: [facility] Address: [address] [place] [address] Result Comment: Tech nical component, bowling alley mechanic screening performed at [facility], [address] [place] [address] CLIA# [id number] Diagnostic interpretation performed at [facility], [address] [place] [address] CLIA# [id number] [employer]: Zach Sousa M.D. Performed By: #### C RRSCN #### [facility] CLIA [id number] [address] [place], [place] [id number] INTERPRETATION, CYTOLOGY, TESTING COORDINATOR Normal [facility] Comment on above: Order Comment: Speci men Type: BLOOD SPECIMEN [facility]ing Facility: [facility] Address: [address] [place] [address] Result Comment: Nega tive for intraepithelial lesion or malignancy. Performed By: #### C RRSCN #### [facility] CLIA [id number] [address] [place] [address] [id number] LMP 09/01/2024 Normal [facility] Comment on above: Order Comment: Speci marcio Type: BLOOD SPECIMEN Ordering Facility: [facility] Address: [address] [place] [address] Performed By: #### C RRSCN #### [facility] CLIA [id number] [address] [place] [address]33 PAP DISCLAIMER COMMENT The Pap Smear is a screening test for cervical cancer. False negative results occur with all screening tests, emphasizing the need for rescreening at recommended intervals, and clinical correlation. Normal [facility] Comment on above: Order Comment: Speci marcio Type: BLOOD SPECIMEN Ordering Facility: [facility] Address: [address] [place] [address] Performed By: #### C RRSCN #### [facility] CLIA [id number] [address] [place] [id number] PAP LINE TECHNICIAN COMMENT This specimen has been analyzed by the ThinPrep Imaging System, an automated imaging and review system, which assists the laboratory in evaluating cells on ThinPrep Pap tests. Following automated imaging, selected fleming from every slide are reviewed by a bowling alley mechanic. Normal [facility] Comment on above: Order Comment: Benjamin buckley Type: BLOOD SPECIMEN Ordering Facility: [facility] Address: [address] [place] [address] Performed By: #### C RRSCN #### [facility] CLIA [id number] [address] [place] [address] 58703 POC ENVIRONMENTAL SERVICES ASSISTANT ULTRASOUNDon 11-25-19 Indication Viability; confirm cardiac activity Impression Single intrauterine gestational sac, CRL indicates discrepancy from clinical dates, CAROLYN 07/07/25 based on today's ultrasound, cardiac activity is visualized Recommendations Follow up for 1st Trimester Anatomy with Nuchal Translucency as clinically indicated if desired. Method Transabdominal ultrasound examination, Transvaginal ultrasound examination. View: Adequate visualization Price . Number of fetuses: 1 Dating LMP on: 09/01/2024 GA by LMP 12 w + 1 d CAROLYN by LMP: 06/08/2025 Ultrasound examination on: 11/25/2024 GA by U/S based upon: CRL GA by U/S 8 w + 0 d CAROLYN by U/S: 07/07/2025 Assigned: based on the LMP, selected on 11/25/2024 Assigned GA 12 w + 1 d Assigned CAROLYN: 06/08/2025 Biometry Standard FHR 157 bpm 20% Nicolaides CRL 16.6 mm 8w 0d <1% Hadlock Assessment Gestational sac: visualized Location: intrauterine Yolk sac: visualized Embryo: visualized CRL 16.6 mm 8w 0d <1% Hadlock Cardiac activity: present FHR 157 bpm 20% Nicolaides General Evaluation Cardiac activity present. FHR 157 bpm Performed By: Naila Escobar NP Read By: Naila Escobar NP MATERNAL MEDICINE [facility] Radiology Study observation (narrative) Yusef nam [facility] Jose 11-22-2024 CNPN Telephone (OBGYWM) FEDERICA FIGUEROA ([id number]) 1990 F Date Time Provider Department 11/22/24 AMPARO HAGER OBGYWM During your visit today, we recorded the following information about you: Cammie Andrews MA 11/22/2024 1:23 PM Signed Left 2nd message on [employer]. The call was intended to go over new ob intake questions for upcoming appointment. Patient was asked if she could call back and ask to speak to a women's health Cammie or Tricia. Patient was advised if she is unable to call back, we ask that she arrive 30 minutes prior on the day of her appointment. SANDER Horta Annalee, LPN 12/25/2024 11:43 AM Signed Patient saw results of labs on [facility] and called asking if she would need to start on an iron supplement d/t h/o anemia? Patient states that her vitamin does not have iron in it. Naila Escobar APRN.DENNIS 12/26/2024 7:24 AM Signed See phone note Naila Escobar APRN.RETAIL MERCHANDISING COORDINATOR Allergies As of Date: 11/22/2024 Noted Allergy Reaction PENICILLINS 09/19/2023 2 - Rash Date Reviewed: Never Reviewed Prescriptions as of 12/26/2024 - PNV no.95/ferrous fum/folic ac ( ORAL) Take 2 Pieces of gum by mouth once daily. - ALBUTEROL INHALATION Inhale 2 Inhalations as instructed as needed (WHEEZING, SHORTNESS OF BREATH). - aspirin, enteric coated (ECOTRIN LOW STRENGTH) 81 mg EC tablet Take 1 tablet by mouth once daily. Problem List As Of Date: 11/22/2024 (None) Encounter Status:Closed by BINH WADE on 12/26/24 [facility] Jose 11-20-2024 DENNISN Telephone (OBGYWM) FEDERICA FIGUEROA ([id number]) 1990 F Date Time Provider Department 11/20/24 AMPARO HAGER OBGYWM During your visit today, we recorded the following information about you: Tricia Perez RN 11/20/2024 9:47 AM Signed Called Pt; however, Pt in a work training at the moment and unable to answer new OB intake questions at this time. Will try and call back during her lunch hour today. If unable to get questions answered prior to her appointment on Monday, but will arrive 30 minutes prior to her new OB appointment to allow time for questions and will arrive with full bladder for urine specimen. ROYER Domínguez Jennifer, RN 11/20/2024 12:15 PM Signed Patient called back. Only available until 12:30 today. Aware that she will need to arrive 30 min prior to her NOB if she is not able to do intake questions on the phone. Kerry Blanco RN Allergies As of Date: 11/20/2024 (Not on File) Date Reviewed: Never Reviewed Reason for Visit: New OB intake questions [Other] Problem List As Of Date: 11/20/2024 (None) Encounter Status:Closed by TRICIA PEREZ on 11/20/24 Normal [facility] XR CHEST 2 VIEWSon XR CHEST 2 VIEWS Interpreted By: Yogi Gao, STUDY: XR CHEST 2 VIEWS; 10/20/2024 3:32 pm INDICATION: Signs/Symptoms:pneum onia. COMPARISON: None. ACCESSION NUMBER(S): [id number] ORDERING CLINICIAN: VAISHALI US FINDINGS: No consolidation. No pleural effusion or pneumothorax. Normal heart size. No acute osseous abnormality. IMPRESSION: No acute cardiopulmonary abnormality. Signed by: Yogi Gao 10/21/2024 10:27 AM Dictation workstation: [id number] [facility] HbA1c (Bld) [Mass fraction]O rdered By: Siria Abbasi on 11-10-2022 Average glucose Estimated from glycated hemoglobin (Bld) [Mass/Vol] 105 mg/dL 68 - 114 mg/dL [facility] Interpretation and review of laboratory results Normal [facility] Normal: 4.0% - 5.6% Increased risk for diabetes: 5.7% - 6.4% Diabetes: >= 6.5% Pediatrics: No established reference range Estimated average glucose: 68-114 mg/dL [facility] Hemoglobin [id number] By: Luma Abbasi on 11-10-2022 HbA1c (Bld) [Mass fraction] 5.3 % 4.0 - 5.6 % [facility] Iron Study with Ferritinon 0 11-10-2022 Ferritin [Mass/Vol] 4 ng/mL Low 13 - 150 ng/mL O [facility] Interpretation and review of laboratory results Abnormal [facility] Iron [Mass/Vol] 22 ug/dL Low [facility] h Iron binding capacity [Mass/Vol] 486 High [facility] Iron saturation [Mass fraction] 5 % Low 20 - 50 % [facility] Comprehensive metabolic 2000 panelon 11-09-2022 Albumin [Mass/Vol] 4.2 g/dL 3.2 - 5.2 g/dL [facility] ALP [Catalytic activity/Vol] 75 U/L 40 - 140 U/L [facility] ALT [Catalytic activity/Vol] 28 U/L 14 - 65 U/L [facility] Anion gap [Moles/Vol] 17 mmol/L 10 - 20 mmol/L [facility] AST [Catalytic activity/Vol] 16 U/L 0 - 45 U/L [facility] Bilirubin [Mass/Vol] 0.3 mg/dL 0.0 - 1 .3 mg/dL [facility] Calcium [Mass/Vol] 9.5 mg/dL 8.4 - 10. 2 mg/dL [facility] Chloride [Moles/Vol] 104 mmol/L 98 - 10 8 mmol/L [facility] Creatinine [Mass/Vol] 0.89 mg/dL 0.40 - 1.10 mg/dL [facility] GFR/1.73 sq M.predicted CKD-EPI (S/P/Bld) [Vol rate/Area] 90 - PINF [facility] Comment on above: Estimated GFR was ca lculated using the 2020 CKD-EPI creatinine equation. Glucose [Mass/Vol] 92 mg/dL 65 - 99 mg/dL [facility] HCO3 [Moles/Vol] 24 mmol/L 21 - 32 mmol/L [facility] Potassium [Moles/Vol] 4.4 mmol/L 3.5 - 5.1 mmol/L [facility] Protein [Mass/Vol] 7.8 g/dL 6.0 - 8.0 g/dL [facility] Sodium [Moles/Vol] 141 mmol/L 135 - 145 mmol/L [facility] Urea nitrogen [Mass/Vol] 10 mg/dL 8 - 25 mg/dL [facility] Urea nitrogen/Creatinine [Mass ratio] 11.2 mg/mg 10.0 - 20.0 [facility] Laboratory Services has implemented the eGFR calculation approach that does not have a coefficient for race that conforms to the NKF-ASN Task Force Recommendations. [facility] No Panel Informationon 11-09 Interpretation and review of laboratory results Normal [facility] TSH DL <= 0.005 mIU/L Qnon 0 11-09-2022 TSH Qn 1.62 m[IU]/L [facility] Vitamin D, Total, 25-OHon 25-hydroxyvitamin D [Mass/Vol] 15 ng/mL Low 30 - 100 ng/mL [facility] Comment on above: Vitamin D status: Deficiency: <20 ng/mL Insufficiency: 20-30 ng/mL Sufficiency: 30-100 ng/mL Toxicity: >100 ng/mL Please note that Fluorescein which is used in angiography has been shown to falsely elevate the results of Vitamin D with our current assay. Evidence suggests that patients undergoing fluorescein dye angiography can retain small amounts of fluorescein in the body for up to 48 to 72 hours post-treatment. In the cases of patients with renal insufficiency, retention could be much longer. Samples should be resubmitted post fluorescein clearance to ensure there is no interference with the Vitamin D test result. Interpretation and review of laboratory results Abnormal [facility] Assay performed using [employer]'s chemiluminescence methodology. [facility] PROGESTERONEon 09-13-2022 PROGESTERONE 21.1 ng/mL Normal [facility] Comment on above: Result Comment: REF VALUES MALE <0.3- 1.2 FOLLICULAR PHASE <0.3- 1.4 LUTEAL PHASE 3.3-25.6 MID-LUTEAL PHASE 4.4-28.0 POSTMENOPAUSAL <0.3- 0.7 FEMALES: 1ST TRIMESTER 11.2- 90.0 2ND TRIMESTER 25.6- 89.4 3RD TRIMESTER 48.4-422.5 . Patients receiving DHEA-S supplements may show false elevation of progesterone for results near 1.0 ng/mL. Contact laboratory at [phone] if alternative testing is needed. Performed By: #### P JUAN ANTONIO #### [facility] [address] [place] [address] Progesterone, Serumon 2021 Progesterone [Mass/Vol] 21.1 ng/mL [facility] [address] Work Phone: Comment on above: REF VALUESMALE <0.3- 1.2 FOLLICULAR PHASE <0.3- 1.4 LUTEAL PHASE 3.3-25.6 MID-LUTEAL PHASE 4.4-28.0POSTMENOPAUSAL <0.3- 0.7 FEMALES: 1ST TRIMESTER 11.2- 90.0 2ND TRIMESTER 25.6- 89.4 3RD TRIMESTER 48.4-422.5 .Patients receiving DHEA-S supplements may show false elevation ofprogesterone for results near 1.0 ng/mL. Contact laboratory [phone] if alternative testing is needed. COVID-19, MOLECULARon 2021 SARS-CoV-2 (COVID-19) RNA SLAVA+probe Ql (Unsp spec) Not detected Normal Not Detected [facility] Comment on above: Result Comment: This test was performed under the FDA's Emergency Use Authorization (EUA). Negative results do not rule out the presence of SARS-CoV-2/COVID-19. Testing was performed using the Chele SARS-CoV-2 RT-PCR assay on the [employer]rence Chele 8800 System. Fact sheets for this EUA can be found at the following links: For Healthcare Providers: https://www.fda.gov/media/542137/download For Patients: https://www.fda.gov/media/810161/download Performed By: #### L [id number] #### [facility] [address] [place] [address] Sandro Arriaga M.D. [id number] PROGESTERONEon 08-15-2022 PROGESTERONE 38.5 ng/mL Normal [facility] Comment on above: Result Comment: REF VALUES MALE <0.3- 1.2 FOLLICULAR PHASE <0.3- 1.4 LUTEAL PHASE 3.3-25.6 MID-LUTEAL PHASE 4.4-28.0 POSTMENOPAUSAL <0.3- 0.7 FEMALES: 1ST TRIMESTER 11.2- 90.0 2ND TRIMESTER 25.6- 89.4 3RD TRIMESTER 48.4-422.5 . Patients receiving DHEA-S supplements may show false elevation of progesterone for results near 1.0 ng/mL. Contact laboratory at [phone] if alternative testing is needed. Performed By: #### P JUAN ANTONIO #### [facility] [address] [place] [address] Progesterone, Serumon 2021 Progesterone [Mass/Vol] 38.5 ng/mL [facility] [address] Work Phone: Comment on above: REF VALUESMALE <0.3- 1.2 FOLLICULAR PHASE <0.3- 1.4 LUTEAL PHASE 3.3-25.6 MID-LUTEAL PHASE 4.4-28.0POSTMENOPAUSAL <0.3- 0.7 FEMALES: 1ST TRIMESTER 11.2- 90.0 2ND TRIMESTER 25.6- 89.4 3RD TRIMESTER 48.4-422.5 .Patients receiving DHEA-S supplements may show false elevation ofprogesterone for results near 1.0 ng/mL. Contact laboratory [phone] if alternative testing is needed. PROGESTERONEon 07-19-2022 PROGESTERONE 27.6 ng/mL Normal [facility] Comment on above: Result Comment: REF VALUES MALE <0.3- 1.2 FOLLICULAR PHASE <0.3- 1.4 LUTEAL PHASE 3.3-25.6 MID-LUTEAL PHASE 4.4-28.0 POSTMENOPAUSAL <0.3- 0.7 FEMALES: 1ST TRIMESTER 11.2- 90.0 2ND TRIMESTER 25.6- 89.4 3RD TRIMESTER 48.4-422.5 . Patients receiving DHEA-S supplements may show false elevation of progesterone for results near 1.0 ng/mL. Contact laboratory at [phone] if alternative testing is needed. Performed By: #### P JUAN ANTONIO #### [facility] [address] [place] [address] Progesterone, Serumon 2021 Progesterone [Mass/Vol] 27.6 ng/mL [facility] [address] Work Phone: Comment on above: REF VALUESMALE <0.3- 1.2 FOLLICULAR PHASE <0.3- 1.4 LUTEAL PHASE 3.3-25.6 MID-LUTEAL PHASE 4.4-28.0POSTMENOPAUSAL <0.3- 0.7 FEMALES: 1ST TRIMESTER 11.2- 90.0 2ND TRIMESTER 25.6- 89.4 3RD TRIMESTER 48.4-422.5 .Patients receiving DHEA-S supplements may show false elevation ofprogesterone for results near 1.0 ng/mL. Contact laboratory [phone] if alternative testing is needed. PROGESTERONEon 06-21-2022 PROGESTERONE 26.7 ng/mL Normal [facility] Comment on above: Result Comment: REF VALUES MALE <0.3- 1.2 FOLLICULAR PHASE <0.3- 1.4 LUTEAL PHASE 3.3-25.6 MID-LUTEAL PHASE 4.4-28.0 POSTMENOPAUSAL <0.3- 0.7 FEMALES: 1ST TRIMESTER 11.2- 90.0 2ND TRIMESTER 25.6- 89.4 3RD TRIMESTER 48.4-422.5 . Patients receiving DHEA-S supplements may show false elevation of progesterone for results near 1.0 ng/mL. Contact laboratory at [phone] if alternative testing is needed. Performed By: #### P JUAN ANTONIO #### [facility] [address] [place] [address] Progesterone, Serumon 2021 Progesterone [Mass/Vol] 26.7 ng/mL W [employer] Work Phone: Comment on above: REF VALUESMALE <0.3- 1.2 FOLLICULAR PHASE <0.3- 1.4 LUTEAL PHASE 3.3-25.6 MID-LUTEAL PHASE 4.4-28.0POSTMENOPAUSAL <0.3- 0.7 FEMALES: 1ST TRIMESTER 11.2- 90.0 2ND TRIMESTER 25.6- 89.4 3RD TRIMESTER 48.4-422.5 .Patients receiving DHEA-S supplements may show false elevation ofprogesterone for results near 1.0 ng/mL. Contact laboratory [phone] if alternative testing is needed. PROGESTERONEon 04-21-2022 PROGESTERONE 2.2 ng/mL Normal [facility] Comment on above: Result Comment: REF VALUES MALE <0.3- 1.2 FOLLICULAR PHASE <0.3- 1.4 LUTEAL PHASE 3.3-25.6 MID-LUTEAL PHASE 4.4-28.0 POSTMENOPAUSAL <0.3- 0.7 FEMALES: 1ST TRIMESTER 11.2- 90.0 2ND TRIMESTER 25.6- 89.4 3RD TRIMESTER 48.4-422.5 . Patients receiving DHEA-S supplements may show false elevation of progesterone for results near 1.0 ng/mL. Contact laboratory at [phone] if alternative testing is needed. Performed By: #### P JUAN ANTONIO #### [facility] [address] [place] [address] Progesterone, Serumon 2021 Progesterone [Mass/Vol] 2.2 ng/mL W [facility] [address] Work Phone: Comment on above: REF VALUESMALE <0.3- 1.2 FOLLICULAR PHASE <0.3- 1.4 LUTEAL PHASE 3.3-25.6 MID-LUTEAL PHASE 4.4-28.0POSTMENOPAUSAL <0.3- 0.7 FEMALES: 1ST TRIMESTER 11.2- 90.0 2ND TRIMESTER 25.6- 89.4 3RD TRIMESTER 48.4-422.5 .Patients receiving DHEA-S supplements may show false elevation ofprogesterone for results near 1.0 ng/mL. Contact laboratory [phone] if alternative testing is needed. PROGESTERONEon 03-26-2022 PROGESTERONE 5.9 ng/mL Normal [facility] Comment on above: Result Comment: REF VALUES MALE <0.3- 1.2 FOLLICULAR PHASE <0.3- 1.4 LUTEAL PHASE 3.3-25.6 MID-LUTEAL PHASE 4.4-28.0 POSTMENOPAUSAL <0.3- 0.7 FEMALES: 1ST TRIMESTER 11.2- 90.0 2ND TRIMESTER 25.6- 89.4 3RD TRIMESTER 48.4-422.5 . Patients receiving DHEA-S supplements may show false elevation of progesterone for results near 1.0 ng/mL. Contact laboratory at [phone] if alternative testing is needed. Performed By: #### P JUAN ANTONIO #### [facility] [address] [place] [address] Progesterone, Serumon 2021 Progesterone [Mass/Vol] 5.9 ng/mL W [facility] [address] Work Phone: Comment on above: REF VALUESMALE <0.3- 1.2 FOLLICULAR PHASE <0.3- 1.4 LUTEAL PHASE 3.3-25.6 MID-LUTEAL PHASE 4.4-28.0POSTMENOPAUSAL <0.3- 0.7 FEMALES: 1ST TRIMESTER 11.2- 90.0 2ND TRIMESTER 25.6- 89.4 3RD TRIMESTER 48.4-422.5 .Patients receiving DHEA-S supplements may show false elevation ofprogesterone for results near 1.0 ng/mL. Contact laboratory [phone] if alternative testing is needed. LMPon 03-02-2022 Last menstrual period start date [facility]Jan2022 [facility]: HOSE OPERATOR - Office Visiton 05 HOSE OPERATOR - Office Visit Diagnoses/Problems Assessed PCOS (polycystic ovarian syndrome) (256.4) (E28.2) Orders Follow-up PRN Outpatient Follow-up Status: Active Requested for: 02Mar2022 Provider Impressions 1)PCOS-reviewed letrozole for ovulation induction is not FDA indicated and off label use. Reviewed the risk of twins. Reviewed the risk of teratogenicity and doing test prior to initiating. Discussed to call with first day bleeding and a negative test. Discussed starting letrozole from day 5 today 10 and then time intimacy. Reviewed progesterone level day 21-24 to see if ovulated and further management to follow. All questions answered at length. Patient voiced understanding. Proceed Chief Complaint PT IS HERE TODAY TO DISCUSS GETTING . STATES USES LETROZOLE TO GET AND WANTED TO GO OVER THE STEPS. HAS NO OTHER CONCERNS. LMP: 01/30/2022 History of Present Geugejb05-ylnf-aqk known PCOS patient presents to discuss letrozole. Patient achieve with letrozole 2.5 mg previously. Here to review process. Patient has no acute concerns. Patient taking vitamins. Patient is on placebo pills for control. Review of Systems Constitutional: No fevers, chills Eye:no vision changes Respiratory: no SOB Cardiovascular: no chest pain Gastrointestinal: No nausea, vomiting, diarrhea, constipation, abdominal pain Genitourinary:no dysuria Gynecology: See HPI Active Problems Problems Abnormal uterine bleeding (AUB) (626.9) (N93.9) Acute frontal sinusitis (461.1) (J01.10) Breast pain, left (611.71) (N64.4) Encounter for screening for cervical cancer (V76.2) (Z12.4) Left foot pain (729.5) (M79.672) Left knee pain (719.46) (M25.562) Nausea in adult (787.02) (R11.0) Negative test (V72.41) (Z32.02) Obese (278.00) (E66.9) Patellofemoral pain syndrome (719.46) (M22.2X9) PCOS (polycystic ovarian syndrome) (256.4) (E28.2) Screening for breast cancer (V76.10) (Z12.39) Tinea pedis (110.4) (B35.3) Women's annual routine gynecological examination (V72.31) (Z01.419) Past Medical History Problems History of asthma (V12.69) (Z87.09) History of Menarche (V21.8) AGE 14 History of Vaginal Pap smear (V76.47) (Z12.72) 12/14/2021; NIL 03/18/19 NIL Surgical History Problems History of Foot Repair left foot cyst Family History Mother Family history of hypertension (V17.49) (Z82.49) Family history of mitral valve disorder (V17.49) (Z82.49) Social History Problems Alcohol use (V49.89) (Z72.89) Caffeine use (V49.89) (Z78.9) Currently in school Never smoker Sexually active Single Allergies Medication amoxicillin Rash; Recorded By: Chikis Jorge; 11/08/2019 11:34:38 AM Penicillins Rash; Recorded By: Xenia Starr; 02/13/2015 10:22:53 AM Current Meds Medication NameInstruction Desogestrel-Ethinyl Estradiol 0.15-30 MG-MCG Oral TabletTAKE 1 TABLET Daily Skip placebo pills every other pack Pre-Ryne TABS Vitals Vital Signs Recorded: 02Mar2022 11:13AM [id number] Jnojcsuug26 Height5 ft Qxvsjn658 lb 0.64 oz BMI Ugjfyrlbae63.11 kg/m2 BSA Calculated1.83 [id number] Physical Exam General: None acute distress Eye: Intraocular movements are intact HEENT: Normocephalic Cardiovascular: Regular rate Respiratory: Respirations are nonlabored Gastrointestinal: Nondistended Musculoskeletal: Normal range of motion Neurologic: Alert and oriented x3 Psychiatric: Cooperative appropriate mood and affect. Time Prep time on date of the patient encounter: 2 minutes. Time spent directly with patient/family/careg iver: 10 minutes. Documentation time: 3 minutes. Signatures Electronically signed by : Rosi Mendoza DO; Mar 02 2022 11:57AM EST (Author) [facility] HOSE OPERATOR - Office Visiton 11-30 HOSE OPERATOR - Office Visit Diagnoses/Problems Assessed Encounter for screening for cervical cancer (V76.2) (Z12.4) Women's annual routine gynecological examination (V72.31) (Z01.419) Screening for breast cancer (V76.10) (Z12.39) Orders Renew: Desogestrel-Ethinyl Estradiol 0.15-30 MG-MCG Oral Tablet; TAKE 1 TABLET Daily Skip placebo pills every other pack PAP TESTING COORDINATOR, Cytology; Status:In Progress - Specimen/Data Collected; Done: [id number] Last Menstrual Period (LMP): : 12/10/2021 PAP - Site : CERVICAL Cytology Order : ThinPrep PAP, Screening, HPV Reflex - Include Genotyping Follow-up visit in 12 months Outpatient Follow-up Status: Hold For - Scheduling Requested for: [id number] Provider Impressions 1) annual Exam-Cervical,colon and breast cancer screening guidelines reviewed. CBE benign. Colon cancer screening is up to date. Pap obtained today. Reviewed HPV vaccine and guidelines. Discussed safe sex practices. Discussed diet and exercise. Reviewed bone health, namely exercise with vitamin D/calcium. Reviewed fertility goals, plan for cocp for now, letrozole in fall. To call with neg preg test and first day. Pt voiced understanding.. Reviewed hereditary cancer screening. Discussed that patient is not at increased risk. All questions answered. Chief Complaint PT IS HERE TODAY FOR HER ANNUAL EXAM. LAST PAP WAS 03/18/19, NIL. HAS NO CONCERNS. NEEDS A REFILL ON HER B/C. DOES NOT DO A SELF BREAST CHECK. LMP: 12/10/2021 History of Present Xcnkzxb90-ftiw-qfs presents for annual exam. Patient safe home denies abuse. Patient sexually active without concern. Patient got shingles this week but overall doing fine. Patient will continue control will think about doing with letrozole like she did previously in the fall. Patient working on physical activity. Patient is rare self breast exam does not know when she is looking for. Patient is no other acute concerns Review of Systems Constitutional: No fevers, chills Eye:no vision changes Respiratory: no SOB Cardiovascular: no chest pain Breast: No lump/mass or discharge Gastrointestinal: No nausea, vomiting, diarrhea, constipation, abdominal pain Genitourinary:no dysuria Gynecology: See HPI Endocrine: No heat or cold intolerance Musculoskeletal: No decreased ROM Skin:No rash Neurologic: No numbness tingling Psychiatric: No anxiety, depression All other: all other systems reviewed and negative for complaint Active Problems Problems Abnormal uterine bleeding (AUB) (626.9) (N93.9) Acute frontal sinusitis (461.1) (J01.10) Breast pain, left (611.71) (N64.4) Left foot pain (729.5) (M79.672) Left knee pain (719.46) (M25.562) Nausea in adult (787.02) (R11.0) Negative test (V72.41) (Z32.02) Obese (278.00) (E66.9) Patellofemoral pain syndrome (719.46) (M22.2X9) PCOS (polycystic ovarian syndrome) (256.4) (E28.2) Tinea pedis (110.4) (B35.3) Past Medical History Problems History of asthma (V12.69) (Z87.09) History of Menarche (V21.8) AGE 14 History of Vaginal Pap smear (V76.47) (Z12.72) 03/18/19 NIL Surgical History Problems History of Foot Repair left foot cyst Family History Mother Family history of hypertension (V17.49) (Z82.49) Family history of mitral valve disorder (V17.49) (Z82.49) Social History Problems Alcohol use (V49.89) (Z72.89) Caffeine use (V49.89) (Z78.9) Currently in school Never smoker Sexually active Single Allergies Medication amoxicillin Rash; Recorded By: Chikis Jorge; 11/08/2019 11:34:38 AM Penicillins Rash; Recorded By: Xenia Starr; 02/13/2015 10:22:53 AM Current Meds Medication NameInstruction Desogestrel-Ethinyl Estradiol 0.15-30 MG-MCG Oral TabletTAKE 1 TABLET Daily Skip placebo pills every other pack Vitals Vital Signs Recorded: 14Dec2021 03:34PM Nvfymjzlozb90.5 F Yxflnuhs565 Quieqailb94 Height5 ft Acfbqb390 lb 15.20 oz BMI Vwduoyuklh30.51 kg/m2 BSA Calculated1.81 Tobacco Useb) No [id number] Physical Exam General: None acute distress Eye: Intraocular movements are intact HEENT: Normocephalic Cardiovascular: Regular rate rhythm Respiratory: Lungs are clear to auscultation, respirations are nonlabored Breast: No masses no tenderness no discharge no adenopathy or skin changes Gastrointestinal: Soft nontender nondistended normal bowel sounds Gynecology: External genitalia within normal limits for age. Urethral meatus normal bladder nontender. Vagina without discharge. No vaginal bleeding. Multiparous cervix. No lesions. No CMT. Uterus mobile midline nontender. No levator ani tenderness. No adnexal tenderness. No adnexal masses Musculoskeletal: Normal range of motion Skin: Warm and dry Neurologic: Alert and oriented x3 Psychiatric: Cooperative appropriate mood and affect. Signatures Electronically signed by : Rosi Mendoza DO; Dec 14 2021 4:41PM EST (Author) [facility] COVID-19/INFLUENZA A,B MOLEC ULARon 11-05-2021 SARS-CoV-2 (COVID-19) Ab IA Ql SARS-COV-2 RNA (TERRENCE): Not Detected INFLUENZA A (TERRENCE): Not Detected INFLUENZA B (TERRENCE): Not Detected Normal Not Detected [facility] Comment on above: Order Comment: This test was performed under the FDA's Emergency Use Authorization (EUA). Testing was performed using the Chele SARS-CoV-2 RT-PCR AND Influenza A/B assay on the Terrence Chele 6800 System. This test has not been approved for use in asymptomatic patients and its performance in this patient population has not been evaluated. Negative results do not rule out the presence of SARS-CoV-2/COVID-19, influenza A, and/or influenza B. Fact sheets for this EUA can be found at the following links: For Healthcare Providers: https://www.fda.gov/media/720069/download ?? For Patients: https://www.fda.gov/media/296195/download Performed By: #### L [id number] #### [facility] [address] [place] [address] Sandro Arriaga M.D. [id number] CORONAVIRUS 2019 BY PCRon SARS-CoV-2 (COVID-19) RNA SLAVA+probe Ql (Unsp spec) Not detected Normal Not Detected [facility] Comment on above: Result Comment: . This assay is designed to detect the N, ORF1ab and/or S genes of SARS-CoV-2 via nucleic acid amplification. A Negative (NOT DETECTED) result does not preclude 2019-nCoV infection since the adequacy of sample collection and/or low viral burden may result in presence of viral nucleic acids below the clinical sensitivity of this test method. Negative (NOT DETECTED) result should not be used as the sole basis for treatment or other patient management decisions. Rather negative results should be combined with clinical observations, patient history, and epidemiological information to make patient management decisions. Fact sheet for providers: https://www.fda.gov/media/089051/download Fact sheet for patients: https://www.fda.gov/media/119555/download This test has received FDA Emergency Use Authorization (EUA) and has been verified by [facility] ([facility]). This test is only authorized for the duration of time that circumstances exist to justify the authorization of the emergency use of in vitro diagnostic tests for the detection of SARS-CoV-2 virus and/or diagnosis of COVID-19 infection under section 564(b)(1) of the Act, 21 U.S.C. 360bbb-3(b)(1), unless the authorization is terminated or revoked sooner. [facility] is certified under CLIA-88 as qualified to perform high complexity testing. Testing is performed in the [facility] laboratories located at [address] [place] [address]. Performed By: #### C OV19 #### [address] [place] [address] Covid 19 Resultson 1 SARS-CoV-2 (COVID-19) RNA SLAVA+probe Ql (Unsp spec) NEGATIVE COVID-19 Test Coronaviruses are common world-wide and are the cause of many common colds. SARS-COV2 is a new coronavirus that began circulating worldwide in 2019 so we are calling it COVID-19. It has been estimated that four out of five patients with COVID-19 will recover at home without the need for medical attention. Symptoms of COVID-19 may include cough, fever, shortness of breath, loss of taste or smell and other flu-like symptoms including chills, sore muscles, sore throat, and headache. Severe illness is more common in older people and people with other health problems such as high blood pressure, obesity, and immune system problems. If the test is positive, you have COVID-19. You will be contacted by the ordering physicians office and instructed to remain on home isolation, in accordance with CDC guidelines. You may also be contacted by the [facility] to see if any of your close contacts may have been exposed to the virus and need to quarantine. If the test is negative, you likely do not have COVID-19 at this time, but you still may have a different illness that can spread to other people (like Influenza, or the Flu) and could still be at risk for getting COVID-19. We recommend that you stay away from other people to limit the spread of illness until your symptoms are improving and you are fever-free for 24 hours without the use of fever lowering medications such as acetaminophen or ibuprofen. No test is 100% accurate so if you are still concerned you may have COVID-19, talk to your doctor about the need to continue to stay away from others. Medicines Unless your provider told you not to use the following: Acetaminophen (Tylenol and others) is generally safe. Anti-inflammatory medications, such as Ibuprofen (Advil or Motrin) or Naproxen (Aleve) can also be used. Zpkw-bvo-zdarsjz cough and cold medicines can be used according to the instructions on the package. Some murg-jet-uflptfr medicines also contain acetaminophen. Make sure you are not taking more than your recommended dose. For those not hospitalized, there is no specific treatment available for this illness. Antibiotics do not treat Coronaviruses. Follow-Up Follow up with your doctor by scheduling a virtual visit or consider follow-up at one of our urgent care fever clinics. If you are having difficulty breathing, or are very weak and having difficulty standing, this is a medical emergency. Call 911 or have someone take you to the nearest emergency room immediately. If possible, wear a facemask. Additional guidance from the CDC for patients who tested POSITIVE for COVID-19 How to isolate: Isolate yourself in a specific room at home and limit your contact with others. Use a separate bathroom from other members of the household, when possible. Leave home only to get essential medical care. Do not go to work, school or public areas. Avoid using public transportation, ride-sharing, or taxis. Restrict contact with pets and other animals. If you must care for your pet or be around animals while you are sick, wash your hands before and after your interaction and wear a facemask. Make sure that shared spaces in the home have good airflow, such as by an air conditioner or an opened window, weather permitting. Personal Hygiene Procedures: Wear a face mask when in the same room as other people or pets. If a face mask interferes with your breathing, others should wear a mask when sharing space with you. Frequent hand-washing: wash your hands with soap and water for at least 20 seconds. If soap and water are not available, use alcohol-based hand title vehicle service attendant. Avoid touching your eyes, nose, and mouth with unwashed hands. Household Hygiene Procedures: Avoid sharing personal household items such as dishes, glassware, cups, eating utensils, towels or bedding with other people or pets in your home. After use, these items should be washed with soap and hot water. Disinfect all high-touch surfaces every day with antibacterial cleaning solutions such as Lysol wipes, bleach, cleansers, etc. High-touch surfaces include tabletops, doorknobs, bathroom fixtures, toilets, phones, keyboards, tablets and bedside tables. Immediately clean any surfaces that may have blood, poop or body fluids on them, using antibacterial cleaning solutions such as Lysol wipes, bleach, cleansers, etc. If clothing or bedding come into contact with blood, poop or body fluids, they should be washed immediately. Follow the directions on the laundry detergent and clothing labels but hot water is recommended when possible. Stopping home isolation precautions: If possible, consult your doctor before stopping home isolation precautions. According to the CDC, you can discontinue home isolation precautions when you have met both of these criteria: Your fever and respiratory symptoms have been gone for 24 yusuf (more content not included)... Normal [facility] CORONAVIRUS 2019 BY PCRon Lab Specimen Source Nasal, Nasopharyngeal Normal [facility] Comment on above: Performed By: #### C OV19 #### [facility] [address] [place] [address] Provider Note - ED v3on 10- Provider Note - ED v3 Provider Note: Chart Review ED NOTES ED NOTES: Chief Complaint: Nausea vomiting diarrhea History of Present Illness: This is a 31-year-old female G1, P0 on oral contraceptive pills with a past medical history significant for asthma presents today with nausea vomiting diarrhea started on Monday. Patient denies any drug or alcohol use. She states she ate nothing abnormal her whole family ate the same thing. She is vaccinated against Covid. No recent travel or ill contacts. No exposure to anyone sick. She states her vomit is green in her stool is green and yellow. Denies any blood or melena. Patient denies any dysuria frequency urgency. She is does feel slightly dehydrated as she has not been able to keep anything down. She states she ate some saltines yesterday and a little bit of soup she got nauseous and stopped eating. she stayed home from work today, feeling slightly weak, no fevers or chills no chest pain or shortness of breath no loss of change in taste or smell Review of Systems All systems negative except as noted in HPI or elsewhere in the chart Constitutional: no fever, chills, +weakness, dizziness Eyes: no redness, discharge, vision change, pain ENT: no sore throat, nosebleeds, rhinorrhea, hearing loss, ear pain, ear discharge Cardiovascular: no chest pain, leg edema, palpitations Respiratory: no shortness of breath, cough, dyspnea on exertion, pleurisy, hemoptysis GI: +nausea,+ diarrhea, pain, +vomiting, -constipation, BRBPR, melena, heartburn : no dysuria, discharge, frequency, flank pain, hematuria, bleeding Musculoskeletal: no myalgia, neck/back pain, redness, arthralgia, inflammation Skin: no rash, bruising, contusions, swelling, lacerations, abrasions Neurological: no headache, numbness, change in function, weakness, AMS, paresthesias, speech change Psychiatric: no AMS, agitation, suicidal, confusion, depression, anxiety Metabolic: no fatigue, polyuria, hair change, dry skin, weakness, polydipsia, temperature intolerance Hematologic: no bleeding, nodes, bruising, petechiae Allergic: no rhinorrhea, sneezing, atopic dermatitis, frequent URIs PMFSH Nursing notes reviewed and confirmed by me. Past Medical History: asthma Past Surgical History: LMP: G P Tetanus: UTD Family History: no DM, HTN, CAD, CVA, Cancer Social History: no smoking, alcohol use, substance abuse, lives alone, marital status Allergies and Medications: See nurses notes. Physical Exam Constitutional: Vital signs per nursing notes. Well developed, well nourished. No acute distress. younger female, appears to be in good health evaluated in urgent care room 1 Psychiatric: alert and oriented to person, place, and time; no abnormalities of mood or affect; memory intact Eyes: PERRL; conjunctivae and lids normal; EOMI ENT: moist mucous membranes, nasal mucosa, turbinates, and septum normal; mouth, tongue, and pharynx normal; pharynx without edema, exudate, or injection Neck: neck supple, no meningismus; trachea midline without deviation; no lymphadenopathy; no thyromegaly; carotid pulses even bilaterally Chest: no masses or tenderness, no discharge Respiratory: normal respiratory effort and excursion; no rales, rhonchi, or wheezes; equal air entry Cardiovascular: regular rate and rhythm; no murmurs, rubs or gallops; symmetric pulses; no edema; normal capillary refill; distal pulses present Neurological: normal speech; CN II-XII grossly intact; GI: no masses, tenderness, rebound or guarding; no palpable, pulsatile mass; no organomegaly; no hernia; normal bowel sounds; (-) Haledon sign; (-) McBurneys sign; (-) CVA tenderness : Lymphatic: no adenopathy of neck, axillae, groin Musculoskeletal: normal gait and station; normal digits and nails; Skin: normal to inspection; normal to palpation; no rash GCS: 15 HISTORY OF PRESENTING ILLNESS FEDERICA is a 31 year old Female and was seen by me at 16-Aug-2021 12:44. Triage Information: Most recent Vital Sign Value Date PAST MEDICAL HISTORY ALLERGIES/INTOLERANC ES: Allergy Allergen: penicillin Type: Drug Reaction: Rash HEALTH HISTORY: No documented data. OUTPATIENT MEDICATIONS: Home Medications Review Status for Reconciliation: Complete Med Status: Patient Currently Takes Medications Drug Name: control Instructions: null Drug Name: Prena1 Chew Instructions: null SIGNIFICANT EVENTS: Immunizations Description:.Influen za- Influenza Virus Description:Tdap Past Medical History Description:ANEMIA/ ASTHMA Past Surgical History Description:NONE PER PT CRITICAL CARE VITAL SIGNS: T PRBP SpO2O2(LPM) %FiO2 Method 16-Aug-2021 12:40:[id number]/8 3 97 MDM MDM/ED COURSE: Patient updated on plan for lab testing, IV insertion, radiology imaging, and medications to be administered while in the , Patient updated on expected wait ti (more content not included)... Normal [facility] LMPon 06-08-2021 Last menstrual period start date [id number] [employer] Phone: HOSE OPERATOR - Office Visiton 05-30 HOSE OPERATOR - Office Visit Diagnoses/Problems Assessed PCOS (polycystic ovarian syndrome) (256.4) (E28.2) Orders Follow-up PRN Outpatient Follow-up Status: Active Requested for: 08Jun2021 Provider Impressions 1)PCOS-discussed the diagnosis of PCOS and the concern for ovulation induction. Discussed letrozole again. Reviewed risk of twin . Reviewed the risk of trying a DANDC if she is already . Discussed home test prior to sending in letrozole. Reviewed taking a medication reviewed risks. Reviewed timing of intimacy. Discussed progesterone levels at 21 to 24 days. Discussed home test and progesterone withdrawal potentially. All questions answered at length. Discussed during vitamins and would ideally like it for 3 months prior to achieving . Discussed optimizing weight and diet. All questions answered at length. Patient voiced understanding agreed to proceed Chief Complaint PT HERE TODAY TO DISCUSS GETTING . PT HAD TO GO ON MEDICATIONS FOR HER FIRST TO HELP HER OVULATE. PT HAD BLOOD WORK DONE MONTHLY. PT HAS NO CONCERNS. LMP-05/08/2021 History of Present IllnessTwo 11-year-old G1, P1 presents for consult on PCOS and potential achieving fertility. Patient was originally conceived with ovulation induction with letrozole 5 mg. Patient has questions that she is thinking about starting here shortly. Patient is already quite vaccinated. Patient not taking vitamins Review of Systems Constitutional: No fevers, chills Eye:no vision changes Respiratory: no SOB Cardiovascular: no chest pain Gastrointestinal: No nausea, vomiting, diarrhea, constipation, abdominal pain Genitourinary:no dysuria Gynecology: See HPI Active Problems Problems Abnormal uterine bleeding (AUB) (626.9) (N93.9) Acute frontal sinusitis (461.1) (J01.10) Breast pain, left (611.71) (N64.4) Left foot pain (729.5) (M79.672) Left knee pain (719.46) (M25.562) Nausea in adult (787.02) (R11.0) Negative test (V72.41) (Z32.02) Obese (278.00) (E66.9) Patellofemoral pain syndrome (719.46) (M22.2X9) PCOS (polycystic ovarian syndrome) (256.4) (E28.2) exam (V24.2) (Z39.2) Tinea pedis (110.4) (B35.3) Past Medical History Problems History of 36 weeks gestation of (V22.2) (Z3A.36) Resolved Date: 30 Sep 2019 History of asthma (V12.69) (Z87.09) History of Menarche (V21.8) AGE 14 History of Vaginal Pap smear (V76.47) (Z12.72) 03/18/19 NIL Surgical History Problems History of Foot Repair left foot cyst Family History Mother Family history of hypertension (V17.49) (Z82.49) Family history of mitral valve disorder (V17.49) (Z82.49) Social History Problems Alcohol use (V49.89) (Z72.89) Caffeine use (V49.89) (Z78.9) Currently in school Never smoker Sexually active Single Allergies Medication amoxicillin Rash; Recorded By: Chikis Jorge; 11/08/2019 11:34:38 AM Penicillins Rash; Recorded By: Xenia Starr; 02/13/2015 10:22:53 AM Current Meds Medication NameInstruction Desogestrel-Ethinyl Estradiol 0.15-30 MG-MCG Oral TabletTAKE 1 TABLET Daily Skip placebo pills every other pack Vitals Vital Signs Recorded: 08Jun2021 09:31AM Xynrvxltnot17.1 F Hmplokrw611 Lhgxjaqdm46 Height5 ft Ubhuys431 lb 13.28 oz BMI Gcwqwhcpqd75.68 kg/m2 BSA Calculated1.82 [id number] Physical Exam General: None acute distress Eye: Intraocular movements are intact HEENT: Normocephalic Cardiovascular: Regular rate Respiratory: Respirations are nonlabored Gastrointestinal: Nondistended Musculoskeletal: Normal range of motion Neurologic: Alert and oriented x3 Psychiatric: Cooperative appropriate mood and affect. Time Prep time on date of the patient encounter: 3 minutes. Time spent directly with patient/family/careg iver: 14 minutes. Documentation time: 3 minutes. Time spent with patient: 20 minutes of which greater than 50 percent was spent counseling and or coordinating care. Signatures Electronically signed by : Rosi Mendoza DO; Jun 08 2021 4:34PM EST (Author) [facility] Provider Note - ED v2on - Provider Note - ED v2 Provider Note - ED v2: Chart Review: ED NOTES ED NOTES: Patient came in with complaints of rash on face and upper back. Patient also says she has a headache. Patient has a history of migraines since she was 10. Patient no longer takes medication for migraines she really just takes Aleve and drinks water. Patient says is 1 does not seem to be getting any better but does not seem to be getting any worse. At this time patient does not want to go to the ER. Patient has not thrown up from this patient has no visual changes. Patient denies any other symptoms at this time. Denies being . HISTORY OF PRESENTING ILLNESS FEDERICA is a 30 year old Female and was seen by me at 20-Jan-2021 15:12. The historian is the patient. Triage Information: Most recent Vital Sign Value Date PAST MEDICAL HISTORY ATTESTATION: I have reviewed and confirmed nurse's/medic's notes for patient's medications, allergies, and medical, surgical, family and social history PSYCHOSOCIAL SCREENING: NO: concerns for safety at home, feelings of depression, feels like hurting others and feels like hurting self ALLERGIES/INTOLERANC ES: Allergy Allergen: penicillin Type: Drug Reaction: Rash HEALTH HISTORY: No documented data. OUTPATIENT MEDICATIONS: Home Medications Review Status for Reconciliation: Complete Med Status: Patient Currently Takes Medications Drug Name: control Instructions: null SIGNIFICANT EVENTS: Immunizations Description:.Influen za- Influenza Virus Description:Tdap Past Medical History Description:ANEMIA/ ASTHMA Past Surgical History Description:NONE PER PT HOSE OPERATOR: Is : no Is : no REVIEW OF SYSTEMS INTEGUMENTARY: POSITIVE for: rash All other systems reviewed and are negative RESULTS/VITAL SIGNS VITAL SIGNS: T PRBP SpO2O2(LPM) %FiO2 Method 20-Jan-2021 15:12:00-36.457883/9 7 97 PHYSICAL EXAM CONSTITUTIONAL: Well appearing, well nourished, awake, alert, oriented to person, place, time/situation and in no apparent distress. HENMT: Airway patent, EYES: pupils are accommodating MUSCULOSKELETAL: range of motion is not limited, no muscle or joint tenderness. NEUROLOGICAL: Alert and oriented, no focal deficits, no motor or sensory deficits. SKIN: Skin normal color for race, warm, dry and intact. Very minimal pinpoint red raised areas on forehead. Not noted anywhere else. PSYCHIATRIC: Alert and oriented to person, place, time/situation. normal mood and affect. No apparent risk to self or others. HEME/LYMPH: No cervical adenopathy. CLINICAL IMPRESSION Diagnosis/Annotation : ED Dx Name:Rash Code:R21 Disposition: discharged Type: home ATTESTATION Comments/Additional Findings: At this time patient does not want to go to the ER to address her headache. Patient does not want any steroids or antiitch medication for her rash. Patient says she wants to try htyh-fna-bbghulg stuff first to see if that works. Patient was instructed if signs and symptoms seem to be getting worse to go straight to the ER she was agreeable to this care plan. CRITICAL CARE TIME Is this a critically ill patient: no Electronic Signatures: Peg Mcghee (SANITATION WORKER CLEANING MACHINERY-RETAIL MERCHANDISING COORDINATOR) (Signed 20-Jan-2021 15:31) Authored: ED Notes, HPI, PMH, ROS, PE, Results/Vital Signs, Clinical Impression, Attestation, Chart Review, Scores Last Updated: 20-Jan-2021 15:31 by Peg Mcghee (SANITATION WORKER CLEANING MACHINERY-RETAIL MERCHANDISING COORDINATOR) Normal [facility] Provider Note - ED v2on 11-30 Provider Note - ED v2 This report has be en cancelled. Normal [facility] Provider Note - ED v2 Provider Note - ED v2: Chart Review: ED NOTES ED NOTES: Patient came in with complaints of facial pressure congestion and mucus when she coughs. Patient says she is not blowing too much out of her nose but when she coughs it up it can be clear or green. Patient denies any fever nausea vomiting constipation diarrhea. Patient gets sinus infections all the time says it feels the same. HISTORY OF PRESENTING ILLNESS FEDERICA is a 30 year old Female and was seen by me at 09-Dec-2020 10:07. The historian is the patient. Triage Information: Most recent Vital Sign Value Date PAST MEDICAL HISTORY ATTESTATION: I have reviewed and confirmed nurse's/medic's notes for patient's medications, allergies, and medical, surgical, family and social history PSYCHOSOCIAL SCREENING: NO: concerns for safety at home, feelings of depression, feels like hurting others and feels like hurting self ALLERGIES/INTOLERANC ES: Allergy Allergen: penicillin Type: Drug Reaction: Rash HEALTH HISTORY: No documented data. 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 HENMT: Airway patent,Nasal mucosa clear. Mouth with normal mucosa. Throat has no vesicles, no oropharyngeal exudates and uvula is midline. Face with no lymph node enlargement. EYES: pupils are accommodating CARDIOVASCULAR: Normal rate, regular rhythm. RESPIRATORY: Breath sounds clear and equal bilaterally and unlabored. no Rales rhonchi or crackles. MUSCULOSKELETAL: range of motion is not limited, no muscle or joint tenderness. NEUROLOGICAL: Alert and oriented, no focal deficits, no motor or sensory deficits. SKIN: Skin normal color for race, warm, dry and intact. No evidence of trauma. PSYCHIATRIC: Alert and oriented to person, place, time/situation. normal mood and affect. No apparent risk to self or others. HEME/LYMPH: No cervical adenopathy. CLINICAL IMPRESSION Diagnosis/Annotation : ED Dx Name:Sinusitis, acute, maxillary Code:J01.00 Disposition: discharged Type: home ATTESTATION Comments/Additional Findings: Patient was given a Z-Emory and [place]. Patient was educated about proper use of medication and supportive therapies. Patient will follow-up if signs and symptoms seem to be getting worse not better. CRITICAL CARE TIME Is this a critically ill patient: no Electronic Signatures: Peg Mcghee (SANITATION WORKER CLEANING MACHINERY-RETAIL MERCHANDISING COORDINATOR) (Signed 09-Dec-2020 10:23) Authored: ED Notes, HPI, PMH, ROS, PE, Results/Vital Signs, Clinical Impression, Attestation, Chart Review, Scores Last Updated: 09-Dec-2020 10:23 by Peg Mcghee (SANITATION WORKER CLEANING MACHINERY-RETAIL MERCHANDISING COORDINATOR) Normal [facility] CBCon 08-25-2020 Erythrocyte distribution width (RBC) [Ratio] 14.5 % Normal 11.5 - 14.5 [facility] Comment on above: Performed By: #### C BC #### [address] [address] Hematocrit (Bld) [Volume fraction] 35.8 % Low 36.0 - 46.0 [facility] Comment on above: Performed By: #### C BC #### [address] [address] Hemoglobin (Bld) [Mass/Vol] 11.5 g/dL Low 12.0 - 16.0 [facility] Comment on above: Performed By: #### C BC #### [address] [address] MCHC (RBC) [Mass/Vol] 32.0 g/dL Normal 32.0 - 36.0 [facility] Comment on above: Performed By: #### C BC #### [address] [address] MCV (RBC) [Entitic vol] 79 fL Low 80 - [address] [facility] Comment on above: Performed By: #### C BC #### [address] [address] Platelets (Bld) [#/Vol] 376 10*3/uL Normal 150 - 450 [facility] Comment on above: Performed By: #### C BC #### [address] [address] RBC 4.56 x10E12/L Normal 4.00 - 5.20 [facility] Comment on above: Performed By: #### C BC #### [address] [address] WBC (Bld) [#/Vol] 8.8 10*3/uL Normal 4.4 - 11.3 [facility] Comment on above: Performed By: #### C BC #### [place] [id number] TSHon 08-25-2020 TSH Qn 1.24 m[IU]/L Normal 0.44 - 3.98 [facility] Comment on above: Result Comment: TSH testing is performed using different testing methodology at [facility] than at [facility]. Direct result comparisons should only be made within the same method. Performed By: #### T SH2 #### [place] [address] IO HCG, Urine Test on 08-05-2020 HCG ( test) Ql (U) Negative [facility] [address] Work Phone: Comment on above: [id number] 0EXP-10/29/2021 Lab Miscellaneouson 07-19-20 19 Status See Ref Lab Report Normal [facility] Comment on above: Order Comment: Order Added by Discern Expert. Performed By: #### 2 [id number] #### ANNIEDavis RoachHemo [address] [place], [place] [address] .PN Glucose 1 Hron 9 Glucose [Mass/Vol] 163 mg/dL Normal <=180 [facility] Comment on above: Performed By: #### 2 [id number] #### ANNIE RemHemo [address] [place], [place] [address] .PN Glucose 2 Hron 9 Glucose [Mass/Vol] 117 mg/dL Normal <=155 [facility] Comment on above: Performed By: #### 2 [id number] #### ANNIE Correao [facility] [place] [address] .PN Glucose 3 Hron 9 Glucose [Mass/Vol] 101 mg/dL Normal <=140 [facility] Comment on above: Performed By: #### 2 [id number] #### ANNIE Correao [facility] [place] [address] .PN Glucose Fastingon 2018 Glucose [Mass/Vol] 75 mg/dL Normal <=95 [facility] Comment on above: Performed By: #### 2 [id number] #### ANNIE Correarivas [address] [place], [place] [address] Lab Miscellaneouson 07-17-20 19 Test Name VZV Normal [facility] Comment on above: Order Comment: Order Added by Discern Expert. Performed By: #### 2 [id number] #### ANNIE MarleyHemo [address] [place], [place] [address] Auto Diffon 07-13-2019 Basophils (Bld) [#/Vol] 0.0 E3/mcL Normal 0.0-0.2 [facility] Comment on above: Order Comment: Order Added by Discern Expert. Performed By: #### 2 [id number] #### ANNIE Correao [address] [place], [place] [address] Basophils/100 WBC (Bld) 0.1 % Normal 0.0-2.0 [facility] Comment on above: Order Comment: Order Added by Discern Expert. Performed By: #### 2 [id number] #### ANNIE RoachHemo [facility] [place] [address] Eos Absolute 0.1 E3/mcL Normal 0.0-0.7 [facility] Comment on above: Order Comment: Order Added by Discern Expert. Performed By: #### 2 [id number] #### ANNIE RoachHemo [facility] [place] [address] Eosinophils/100 WBC (Bld) 1.1 % Normal 0.0-11.0 [facility] Comment on above: Order Comment: Order Added by Discern Expert. Performed By: #### 2 [id number] #### ANNIE RoachHemo [address] [place] [address] Lymphocytes (Bld) [#/Vol] 2.0 E3/mcL Normal 1.2-3.4 [facility] Comment on above: Order Comment: Order Added by Discern Expert. Performed By: #### 2 [id number] #### ANNIE Correao [facility] [place] [address] Lymphocytes/100 WBC (Bld) 19.9 % Low 20.0-55.0 [facility] Comment on above: Order Comment: Order Added by Discern Expert. Performed By: #### 2 957915 #### ANNIE RoachHemo [address] [place] [address] Campbell Absolute 0.4 E3/mcL Normal 0.0-0.7 [facility] Comment on above: Order Comment: Order Added by Discern Expert. Performed By: #### 2 [id number] #### ANNIE Correao [address] [place], [place] [address] Monocytes/100 WBC (Bld) 4.3 % Normal 0.0-10.0 [facility] Comment on above: Order Comment: Order Added by Discern Expert. Performed By: #### 2 [id number] #### ANNIE Correao [address] [place] [address] Neutro Absolute 7.6 E3/mcL High 1.4-6.5 [facility] Comment on above: Order Comment: Order Added by Discern Expert. Performed By: #### 2 [id number] #### ANNIE RoachHemo [facility] [place] [address] Neutro Auto 74.6 % Normal 37.0-75.0 [facility] Comment on above: Order Comment: Order Added by Discern Expert. Performed By: #### 2 [id number] #### ANNIE RoachHemo [address] [place] [address] CBC w/ Auto Diffon 9 Erythrocyte distribution width (RBC) [Ratio] 21.1 % High 11.5-14.5 [facility] Comment on above: Performed By: #### 9 [id number] #### ANNIE RemHemo [address] [place] [address] Hematocrit (Bld) [Volume fraction] 33.6 % Low 36.0-48.0 [facility] Comment on above: Performed By: #### 9 [id number] #### ANNIE RemHemo [address] [place] [address] Hemoglobin (Bld) [Mass/Vol] 10.9 g/dL Low 12.0-16.0 [facility] Comment on above: Performed By: #### 9 [id number] #### ANNIE RemHemo [address] [place] [address] MCH (RBC) [Entitic mass] 26.2 pg Low 27.0-31.0 [facility] Comment on above: Performed By: #### 9 [id number] #### ANNIE RemHemo [address] [place] [address] MCHC (RBC) [Mass/Vol] 32.6 g/dL Low 33.0-37.0 [facility] Comment on above: Performed By: #### 9 [id number] #### ANNIE RemHemo [address] [place] [address] MCV (RBC) [Entitic vol] 80.3 fL Normal 78.0-100.0 [facility] Comment on above: Performed By: #### 9 [id number] #### ANNIE RemHemo [address] [place] [address] Platelet mean volume (Bld) [Entitic vol] 6.9 fL Low 7.4-11.0 [facility] Comment on above: Performed By: #### 9 [id number] #### ANNIE RemHemo [address] [place] [address] Platelets (Bld) [#/Vol] 282 E3/mcL Normal 130-400 [facility] Comment on above: Performed By: #### 9 [id number] #### ANNIE RemHemo [address] [place] [address] RBC (Bld) [#/Vol] 4.18 E6/mcL Normal 3.90-5.40 [facility] Comment on above: Performed By: #### 9 [id number] #### ANNIE RemHemo [address] [place] [address] WBC (Bld) [#/Vol] 10.2 E3/mcL Normal 3.6-11.0 [facility] Comment on above: Performed By: #### 9 [id number] #### ANNIE RoachHemo [address] [place] [id number] Gest Scr Glu 1 Hron 07-13-20 19 Glucose [Mass/Vol] 142 mg/dL High 70-140 [facility] Comment on above: Performed By: #### 2 640371 #### ANNIE RemHemo [address] [place] [address] Morphon 07-13-2019 Anisocytosis Ql (Bld) 1+ Normal [facility] Comment on above: Order Comment: Order Added by Discern Expert. Performed By: #### 2 [id number] #### ANNIE RoachHemo [address] [place] [address] Hypochromasia 1+ Normal [facility] Comment on above: Order Comment: Order Added by Discern Expert. Performed By: #### 2 [id number] #### ANNIE RoachHemo [address] [place] [address] Macrocyte 1+ Normal [facility] Comment on above: Order Comment: Order Added by Discern Expert. Performed By: #### 2 [id number] #### ANNIE RoachHemo [address] [place] [address] RBC morphology finding Nom (Bld) SEE MORPHOLOGY Normal [facility] Comment on above: Order Comment: Order Added by Discern Expert. Performed By: #### 2 [id number] #### ANNIE RemHemo [address] [place] [address] zzplt morphon 07-13-2019 Platelet morphology finding Nom (Bld) NORMAL Normal [facility] Comment on above: Performed By: #### 2 [id number] #### ANNIE RemHemo [address] [place] [address] Platelets (Bld) [#/Vol] NORMAL Normal [facility] Comment on above: Performed By: #### 2 [id number] #### ANNIE RemHemo [address] [place] [address] US After 1st Trime steron 05-16-2019 US After 1st Trimester Exam Date/Time: 05/15/2019 12:56 EDT Reason for Exam: DATES & ANATOMY;Standard Anatomy Report STUDY: US After 1st Trimester 05/15/2019 12:56 pm INDICATION: Standard Anatomy. COMPARISON: None. ACCESSION NUMBER(S): [id number] ORDERING CLINICIAN: Rosi Mendoza TECHNIQUE: Routine ultrasound of the pelvis was performed. Evaluation of the female pelvis was performed by transabdominal. FINDINGS: There is a single live intrauterine gestation in variable position. BPD 46mm, 19 weeks, 5 days HC 168mm, 19 weeks, 3 days AC 146mm, 19 weeks, 6 days FL 31mm, 19 weeks, 3 days This results in a composite gestational age of 19 weeks, 4 days, +/-10 days. The estimated date of delivery by ultrasound is 10/05/2019. By dates the fetus should be 19 weeks, 4 days, which is concordant with the ultrasound dating. There is an estimated weight of 308 g +/-46 g (53rd percentile). heart rate measures 147 beats per minute. Anatomy: HEART (FOUR-CHAMBER): Seen THREE-VESSEL CORD: Seen UMBILICAL CORD INSERTION: Seen BLADDER: Seen STOMACH: Seen SPINE: Seen KIDNEYS: Seen DIAPHRAGM: Seen LATERAL VENTRICLE: Seen The placenta is in posterior position. No evidence of placenta previa is seen. The amniotic fluid volume is within normal limits. Exam Date/Time: 05/15/2019 12:56 EDT Report Maternal anatomy: The cervix is closed, measuring up to 4.0 cm in diameter. IMPRESSION: Single live intrauterine gestation corresponding to 19 weeks, 4 days, +/-10 days. No gross anatomic abnormality was identified. Recommend continued routine follow-up imaging evaluation. FINAL REPORT Dictated: 05/16/2019 9:02 am Aurelio Abreu MD Signed (Electronic Signature): 05/16/2019 9:02 am Signed by: Aurelio Abreu MD Technologist: [facility] RPRon 04-03-2019 Reagin Ab RPR Ql (S) Non-Reactive Normal Non-Reactive [facility] Comment on above: Performed By: #### 9 [id number] #### ANNIE RoachHemo [address] [place] [address] Hep Bs Agon 03-31-2019 Hep Bs Ag Negative Normal Negative [facility] Comment on above: Result Comment: Perf ormed At: [facility] [place] [address] [place], [place] [id number] Andres Bravo PhD Ph:[phone] Performed By: #### 9 [id number] #### ANNIE Correao [facility] [place] [phone] ABO/Rh Echoon 03-29-2019 ABO/Rh E Interp... Positive Normal [facility] Comment on above: Performed By: #### 9 [id number] #### ANNIE Robin [facility] [place] [address] Antibody Screen Cap...on Screen Interp... Negative Normal [facility] Comment on above: Performed By: #### 9 [id number] #### ANNIE RoachHemo [address] [place] [address] Auto Diffon 03-29-2019 Basophils (Bld) [#/Vol] 0.0 E3/mcL Normal 0.0-0.2 [facility] Comment on above: Order Comment: Order Added by Discern Expert. Performed By: #### 9 [id number] #### ANNIE RoachHemo [address] [place] [address] Basophils/100 WBC (Bld) 0.2 % Normal 0.0-2.0 [facility] Comment on above: Order Comment: Order Added by Discern Expert. Performed By: #### 9 [id number] #### ANNIE RoachHemo [address] [place] [address] Eos Absolute 0.1 E3/mcL Normal 0.0-0.7 [facility] Comment on above: Order Comment: Order Added by Discern Expert. Performed By: #### 9 [id number] #### ANNIE RoachHemo [address] [place] [address] Eosinophils/100 WBC (Bld) 1.0 % Normal 0.0-11.0 [facility] Comment on above: Order Comment: Order Added by Discern Expert. Performed By: #### 9 [id number] #### ANNIE RoachHemo [address] [place] [address] Lymphocytes (Bld) [#/Vol] 2.7 E3/mcL Normal 1.2-3.4 [facility] Comment on above: Order Comment: Order Added by Discern Expert. Performed By: #### 9 [id number] #### ANNIE Correao [address] [place] [address] Lymphocytes/100 WBC (Bld) 25.4 % Normal 20.0-55.0 [facility] Comment on above: Order Comment: Order Added by Discern Expert. Performed By: #### 9 [id number] #### ANNIE RoachHemo [address] [place] [address] Campbell Absolute 0.5 E3/mcL Normal 0.0-0.7 [facility] Comment on above: Order Comment: Order Added by Discern Expert. Performed By: #### 9 [id number] #### ANNIE RoachHemo [address] [place], [place] [address] Monocytes/100 WBC (Bld) 4.9 % Normal 0.0-10.0 [facility] Comment on above: Order Comment: Order Added by Discern Expert. Performed By: #### 9 [id number] #### ANNIE RoachHemo [address] [place] [address] Neutro Absolute 7.4 E3/mcL High 1.4-6.5 [facility] Comment on above: Order Comment: Order Added by Discern Expert. Performed By: #### 9 [id number] #### ANNIE RoachHemo [address] [place], [place] [address] Neutro Auto 68.5 % Normal 37.0-75.0 [facility] Comment on above: Order Comment: Order Added by Discern Expert. Performed By: #### 9 [id number] #### ANNIE RoachHemo [address] [place] [address] CBC w/ Auto Diffon 9 Erythrocyte distribution width (RBC) [Ratio] 18.9 % High 11.5-14.5 [facility] Comment on above: Performed By: #### 1 [id number] #### ANNIE RemHemo [address] [place] [address] Hematocrit (Bld) [Volume fraction] 33.5 % Low 36.0-48.0 [facility] Comment on above: Performed By: #### 1 [id number] #### ANNIE RemHemo [address] [place] [address] Hemoglobin (Bld) [Mass/Vol] 10.4 g/dL Low 12.0-16.0 [facility] Comment on above: Performed By: #### 1 [id number] #### ANNIE RemHemo [address] [place] [address] MCH (RBC) [Entitic mass] 21.9 pg Low 27.0-31.0 [facility] Comment on above: Performed By: #### 1 [id number] #### ANNIE RemHemo [address] [place] [address] MCHC (RBC) [Mass/Vol] 31.2 g/dL Low 33.0-37.0 [facility] Comment on above: Performed By: #### 1 [id number] #### ANNIE RemHemo [address] [place] [address] MCV (RBC) [Entitic vol] 70.2 fL Low 78.0-100.0 [facility] Comment on above: Performed By: #### 1 [id number] #### ANNIE RemHemo [address] [place] [address] Platelet mean volume (Bld) [Entitic vol] 7.9 fL Normal 7.4-11.0 [facility] Comment on above: Performed By: #### 1 [id number] #### ANNIE RemHemo [address] [place] [address] Platelets (Bld) [#/Vol] 385 E3/mcL Normal 130-400 [facility] Comment on above: Performed By: #### 1 [id number] #### ANNIE RemHemo [address] [place] [address] RBC (Bld) [#/Vol] 4.77 E6/mcL Normal 3.90-5.40 [facility] Comment on above: Performed By: #### 1 [id number] #### ANNIE RoachHemo [address] [place] [address] WBC (Bld) [#/Vol] 10.8 E3/mcL Normal 3.6-11.0 [facility] Comment on above: Performed By: #### 1 [id number] #### ANNIE RemHemo [address] [place] [address] HIV-1/2 Ag/Abon 03-29-2019 HIV Combo Internal Control Line Reactive Normal Reactive [facility] Comment on above: Performed By: #### 9 [id number] #### ANNIE RemHemo [address] [place] [address] HIV-1 & HIV-2 Antibodies Non-Reactive Normal Non-Reactive [facility] Comment on above: Performed By: #### 9 [id number] #### ANNIE RoachHemo [address] [place] [address] HIV-1 p-24 Antigen Non-Reactive Normal Non-Reactive [facility] Comment on above: Performed By: #### 9 [id number] #### ANNIE RemHemo [address] [place] [address] HIV-1/2 Ag/Ab Interp Negative Normal Negative [facility] Comment on above: Performed By: #### 9 [id number] #### ANNIE RemHemo [address] [place] [address] [id number] 03-29-2019 HbA1c (Bld) [Mass fraction] 5.2 % Normal 4.0-6.3 [facility] Comment on above: Performed By: #### 9 [id number] #### ANNIE RemHemo [address] [place] [address] IGP W/hpv Rfx [id number] 03-29 Diagnosis: See Ref Lab Report Normal [facility] Comment on above: Performed By: #### 1 [id number] #### ANNIE RoachHemo [address] [place] [address] Morphon 03-29-2019 Anisocytosis Ql (Bld) 2+ Normal [facility] Comment on above: Order Comment: Order Added by Discern Expert. Performed By: #### 1 [id number] #### ANNIE RoachHemo [address] [place] [address] Hypochromasia 2+ Normal [facility] Comment on above: Order Comment: Order Added by Discern Expert. Performed By: #### 1 [id number] #### ANNIE RoachHemo [facility] [place] [address] Microcyte 1+ Normal [facility] Comment on above: Order Comment: Order Added by Discern Expert. Performed By: #### 1 [id number] #### ANNIE RoachHemo [facility] [place] [address] RBC morphology finding Nom (Bld) NORMAL Normal [facility] Comment on above: Order Comment: Order Added by Discern Expert. Performed By: #### 1 [id number] #### ANNIE RoachHemo [address] [place] [address] Rubella IgG Lvlon 03-29-2019 Rubella IgG Lvl 50.3 (POS) Normal [facility] Comment on above: Result Comment: <10I U/ml NON REACTIVE: NOT IMMUNE 10-15 IU/ml RUBELLA SPECIFIC AB PRESENT, EVALUATE FURTHER TO DETERMINE IMMUNE STATUS >15 IU/ml REACTIVE, IMMUNE Performed By: #### 9 [id number] #### ANNIE RoachHemo [address] [place] [address] zzplt morphon 03-29-2019 Platelet morphology finding Nom (Bld) NORMAL Normal [facility] Comment on above: Performed By: #### 1 [id number] #### ANNIE RoachHemo [address] [place] [address] Platelets (Bld) [#/Vol] NORMAL Normal [facility] Comment on above: Performed By: #### 1 [id number] #### ANNIE RoachHemo [address] [place] [address] C Urineon 03-20-2019 C Urine Final Report: Rare Normal skin danyelle isolated Normal [facility] Comment on above: Performed By: #### 1 [id number] #### ANNIE RoachHemo [facility] [place] [address] Chlamydia GC by PCRon 2018 Chlamydia by PCR. Not Detected Normal Not Detected [facility] Comment on above: Result Comment: Xper t CT/NG Assay performance has not been evaluated in patients less than 14 years of age. Performed By: #### 1 [id number] #### ANNIE RoachHemo [facility] [place] [address] Gonorrhoeae by PCR Not Detected Normal Not Detected [facility] Comment on above: Result Comment: Xper t CT/NG Assay performance has not been evaluated in patients less than 14 years of age. Performed By: #### 1 [id number] #### ANNIE RoachHemo [facility] [place] [address] [facility] 03-18-2019 [facility] Date of Procedure: 03/18/2019 Pathologist: SAMY PATEL MD Date Reported: 03/28/2019 Date Received: 03/20/2019 Submitting Physician: ROSI MENDOZA DO FINAL CYTOLOGICAL INTERPRETATION A. THINPREP PAP Cervical / Endocervical Reflex - [facility] only: Specimen Adequacy: SATISFACTORY FOR EVALUATION. Quality Indicator: Absence of endocervical/transfo rmation zone component. General Categorization: NEGATIVE FOR INTRAEPITHELIAL LESION OR MALIGNANCY. Descriptive Interpretation: REACTIVE CELLULAR CHANGES. Electronically Signed Out By SAMY PATEL MD/LUISITO/LINN By the signature on this report, the individual or group listed as making the Final Interpretation/Diagn osis certifies that they have reviewed this case. Educational Note: Cervical cytology is a screening procedure primarily for squamous cancers and precursors and has associated false-negative and false-positive results as evidenced by published data. Your patient?s test should be interpreted in this context, together with patient?s history and clinical findings. Regular sampling and follow-up of unexplained clinical signs and symptoms are recommended to minimize false negative results. Clinical History Date of Last Menstrual Period: {Not Entered} Menstrual History: Other Clinical Conditions: Reflex HPV Testing Ordered: [facility] and Above Z34.90 Source of Specimen A: THINPREP PAP Cervical / Endocervical Reflex - [facility] only Normal [facility] Progesterone Lvlon 9 Progest Lvl 15.1 ng/mL Normal [facility] Comment on above: Result Comment: Foll icular phase 0.1 - 0.9 Luteal phase 1.8 - 23.9 Ovulation phase 0.1 - 12.0 First trimester 11.0 - 44.3 Second trimester 25.4 - 83.3 Third trimester 58.7 - 214.0 Postmenopausal 0.0 - 0.1 Performed At: [address] [id number] Andres Bravo PhD Ph:[phone] Performed By: #### 1 [id number] #### ANNIE RemHemo [facility] [place] [address] Progesterone Lvlon 9 Progest Lvl 16.1 ng/mL Normal [facility] Comment on above: Result Comment: Foll icular phase 0.1 - 0.9 Luteal phase 1.8 - 23.9 Ovulation phase 0.1 - 12.0 First trimester 11.0 - 44.3 Second trimester 25.4 - 83.3 Third trimester 58.7 - 214.0 Postmenopausal 0.0 - 0.1 Performed At: [address] [id number] Andres Bravo PhD Ph:[phone] Performed By: #### 1 [id number] #### ANNIE RemHemo [address] [place] [address] C Urineon 12-19-2018 C Urine Final Report: Rare Normal skin danyelle isolated Normal [facility] Comment on above: Performed By: #### 1 [id number] #### ANNIE RemHemo [facility] [place] [address] Prolactin Lvlon 10-12-2018 Prolactin Lvl 35.1 ng/mL [facility] Comment on above: Result Comment: Male 4.0 - 15.2 Female 4.8 - 23.3 Performed At: [address] [id number] Andres Bravo PhD Ph:[phone] Performed By: #### 1 [id number] #### ANNIE Send Outs Subsection [facility] [place] [address] Testost Totalon 10-12-2018 Testoster Tot 14 ng/dL Normal [facility] Comment on above: Result Comment: MALE VANESSA STAGE FEMALE VANESSA STAGE 1 <3 1 <3 - 6 2 <3 - 432 2 <3 - 10 3 65 - 778 3 <3 - 24 4 180 - 763 4 <3 - 27 5 188 - 882 5 5 - 38 MALE ADULT 264 - 916 FEMALE ADULT 20-49 years 8 - 48 >49 years 3 - 41 Adult male reference interval is based on a population of healthy nonobese males (BMI <30) between 19 and 39 years old. lavon Polk.al. JCEM 2017,102;1813-7922. PMID: [id number]. Performed At: [facility] [address] [id number] Andres Bravo PhD Ph:[phone] Performed By: #### 2 [id number] #### ANNIE Send Outs Subsection [address] [place] [address] Auto Diffon 10-11-2018 Basophils (Bld) [#/Vol] 0.0 E3/mcL Normal 0.0-0.2 [facility] Comment on above: Order Comment: Order Added by Discern Expert. Performed By: #### 2 [id number] #### ANNIE RemHemo [address] [place] [address] Basophils/100 WBC (Bld) 0.4 % Normal 0.0-2.0 [facility] Comment on above: Order Comment: Order Added by Discern Expert. Performed By: #### 2 [id number] #### ANNIE RemHemo [address] [place] [address] Eos Absolute 0.1 E3/mcL Normal 0.0-0.7 [facility] Comment on above: Order Comment: Order Added by Discern Expert. Performed By: #### 2 [id number] #### ANNIE RemHemo [facility] [place] [address] Eosinophils/100 WBC (Bld) 1.1 % Normal 0.0-11.0 [facility] Comment on above: Order Comment: Order Added by Discern Expert. Performed By: #### 2 [id number] #### ANNIE RemHemo [address] [place] [address] Lymphocytes (Bld) [#/Vol] 3.1 E3/mcL Normal 1.2-3.4 [facility] Comment on above: Order Comment: Order Added by Discern Expert. Performed By: #### 2 [id number] #### ANNIE RemHemo [address] [place] [address] Lymphocytes/100 WBC (Bld) 29.6 % Normal 20.0-55.0 [facility] Comment on above: Order Comment: Order Added by Discern Expert. Performed By: #### 2 [id number] #### ANNIE RemHemo [address] [place] [address] Campbell Absolute 0.6 E3/mcL Normal 0.0-0.7 [facility] Comment on above: Order Comment: Order Added by Discern Expert. Performed By: #### 2 [id number] #### ANNIE RemHemo [address] [place] [address] Monocytes/100 WBC (Bld) 5.5 % Normal 0.0-10.0 [facility] Comment on above: Order Comment: Order Added by Discern Expert. Performed By: #### 2 [id number] #### ANNIE RoachHemo [address] [place] [address] Neutro Absolute 6.6 E3/mcL High 1.4-6.5 [facility] Comment on above: Order Comment: Order Added by Discern Expert. Performed By: #### 2 [id number] #### ANNIE RemHemo [address] [place] [address] Neutro Auto 63.4 % Normal 37.0-75.0 [facility] Comment on above: Order Comment: Order Added by Discern Expert. Performed By: #### 2 [id number] #### ANNIE RoachHemo [address] [place] [address] CBC w/ Auto Diffon 8 Erythrocyte distribution width (RBC) [Ratio] 16.9 % High 11.5-14.5 [facility] Comment on above: Performed By: #### 2 [id number] #### ANNIE RoachHemo [address] [place] [address] Hematocrit (Bld) [Volume fraction] 34.5 % Low 36.0-48.0 [facility] Comment on above: Performed By: #### 2 [id number] #### ANNIE RoachHemo [address] [place] [address] Hemoglobin (Bld) [Mass/Vol] 10.5 g/dL Low 12.0-16.0 [facility] Comment on above: Performed By: #### 2 [id number] #### ANNIE RoachHemo [address] [place] [address] MCH (RBC) [Entitic mass] 20.4 pg Low 27.0-31.0 [facility] Comment on above: Performed By: #### 2 [id number] #### ANNIE RoachHemo [address] [place] [address] MCHC (RBC) [Mass/Vol] 30.3 g/dL Low 33.0-37.0 [facility] Comment on above: Performed By: #### 2 114161 #### ANNIE RoachHemo [facility] [place] [address] MCV (RBC) [Entitic vol] 67.3 fL Low 78.0-100.0 [facility] Comment on above: Performed By: #### 2 146107 #### ANNIE MarleyHemo [facility] [place] [address] Platelet mean volume (Bld) [Entitic vol] 7.3 fL Low 7.4-11.0 [facility] Comment on above: Performed By: #### 2 [id number] #### ANNIE RoachHemo [facility] [place] [address] Platelets (Bld) [#/Vol] 422 E3/mcL High 130-400 [facility] Comment on above: Performed By: #### 2 [id number] #### ANNIE MarleyHemo [address] [place] [address] RBC (Bld) [#/Vol] 5.13 E6/mcL Normal 3.90-5.40 [facility] Comment on above: Performed By: #### 2 [id number] #### ANNIE RoachHemo [address] [place] [address] WBC (Bld) [#/Vol] 10.4 E3/mcL Normal 3.6-11.0 [facility] Comment on above: Performed By: #### 2 [id number] #### ANNIE RoachHemo [address] [place] [address] [id number] 10-11-2018 HbA1c (Bld) [Mass fraction] 5.4 % Normal 4.0-6.3 [facility] Comment on above: Performed By: #### 3 [id number] #### NANIE Chemistry Manual Subsection [address] [place] [address] Lipid Profileon 10-11-2018 Cholesterol [Mass/Vol] 195 mg/dL Normal 0-199 [facility] Comment on above: Performed By: #### 3 [id number] #### ANNIE [employer] [address] [place] [address] Cholesterol in HDL [Mass/Vol] 54 mg/dL Normal 40-60 [facility] Comment on above: Performed By: #### 3 [id number] #### ANNIE Rem[employer] [facility] [place] [address] Cholesterol in LDL [Mass/Vol] 121 mg/dL Normal 0-130 [facility] Comment on above: Performed By: #### 3 [id number] #### ANNIE [employer] [facility] [place] [address] Cholesterol in VLDL [Mass/Vol] 20 mg/dL Normal 0-40 [facility] Comment on above: Performed By: #### 3 [id number] #### ANNIE [employer] [facility] [place] [address] Triglyceride [Mass/Vol] 100 mg/dL Normal 0-149 [facility] Comment on above: Result Comment: AGE DESIRABLE BORDERLINE HIGH 91 D - 9 Y 0 - 74 75 - 99 > 100 10 - 19 Y 0 - 89 90 - 129 > 130 20 - 24 Y 0 - 114 115 - 149 > 150 > 25 0 - 149 150 - 199 200 - 499 Performed By: #### 3 [id number] #### ANNIE [employer] [address] [place] [address] Morphon 10-11-2018 Anisocytosis Ql (Bld) 2+ Normal [facility] Comment on above: Order Comment: Order Added by Discern Expert. Performed By: #### 1 [id number] #### ANNIE RemHemo [address] [place] [address] Hypochromasia 1+ Normal [facility] Comment on above: Order Comment: Order Added by Discern Expert. Performed By: #### 1 [id number] #### ANNIE RoachHemo [address] [place] [id number] Microcyte 2+ Normal [facility] Comment on above: Order Comment: Order Added by Discern Expert. Performed By: #### 1 [id number] #### ANNIE RoachHemo [address] [place] [id number] RBC morphology finding Nom (Bld) SEE MORPHOLOGY Normal [facility] Comment on above: Order Comment: Order Added by Discern Expert. Performed By: #### 1 [id number] #### ANNIE RemHemo [address] [place] [id number] TSHon 10-11-2018 TSH Qn 2.72 mcIU/mL Normal 0.30-5.60 [facility] Comment on above: Performed By: #### 2 [id number] #### ANNIE [employer] [facility] [place] [id number] US Pelvis Non-OB Completeon 10-11-2018 US Pelvis Non-OB Complete Exam Date/Time: 10/11/2018 15:58 EST Reason for Exam: ABN UTERINE BLEEDING;Abnormal vaginal bleeding Report STUDY: US Pelvis Non-OB Complete; 10/11/2018 3:58 pm INDICATION: Abnormal vaginal bleeding. COMPARISON: None. ACCESSION NUMBER(S): [id number] ORDERING CLINICIAN: Rosi Mendoza TECHNIQUE: Multiple multiplanar static rousseau scale, color and spectral waveform sonographic images of the pelvis were obtained. Transabdominal and endovaginal ultrasound was performed. FINDINGS: UTERUS: The uterus is retroverted and normal in size. It measures 7.9 x 4.2 x 4.5 cm. No distinct fibroids. ENDOMETRIUM: Endometrium is prominent and echogenic. It measures 12 mm in depth and consistent with the secretory phase of the menstrual cycle. RIGHT ADNEXA: Right ovary measures 3.2 x 1.8 x 2.3 cm and contains tiny follicles. Vascular flow is recorded. No adnexal masses. LEFT ADNEXA: Left ovary measures 3.2 x 2 x 2 cm. It contains tiny follicles. Vascular flow is recorded. No adnexal masses. CUL DE SAC: No free fluid IMPRESSION: Exam Date/Time: 10/11/2018 15:58 EST Report 1. A retroverted uterus. Otherwise, a negative examination. FINAL REPORT Dictated: 10/11/2018 5:16 pm Edd Temple MD Signed (Electronic Signature): 10/11/2018 5:16 pm Signed by: Edd Temple MD Technologist: HEATHER [facility] US Transvaginal Non-OBon US Transvaginal Non-OB Exam Date/Time: 10/11/2018 15:58 EST Reason for Exam: ABN UTERINE BLEEDING;Abnormal vaginal bleeding Report STUDY: US Pelvis Non-OB Complete; 10/11/2018 3:58 pm INDICATION: Abnormal vaginal bleeding. COMPARISON: None. ACCESSION NUMBER(S): [id number] ORDERING CLINICIAN: Rosi Mendoza TECHNIQUE: Multiple multiplanar static rousseau scale, color and spectral waveform sonographic images of the pelvis were obtained. Transabdominal and endovaginal ultrasound was performed. FINDINGS: UTERUS: The uterus is retroverted and normal in size. It measures 7.9 x 4.2 x 4.5 cm. No distinct fibroids. ENDOMETRIUM: Endometrium is prominent and echogenic. It measures 12 mm in depth and consistent with the secretory phase of the menstrual cycle. RIGHT ADNEXA: Right ovary measures 3.2 x 1.8 x 2.3 cm and contains tiny follicles. Vascular flow is recorded. No adnexal masses. LEFT ADNEXA: Left ovary measures 3.2 x 2 x 2 cm. It contains tiny follicles. Vascular flow is recorded. No adnexal masses. CUL DE SAC: No free fluid IMPRESSION: Exam Date/Time: 10/11/2018 15:58 EST Report 1. A retroverted uterus. Otherwise, a negative examination. FINAL REPORT Dictated: 10/11/2018 5:16 pm Edd Temple MD Signed (Electronic Signature): 10/11/2018 5:16 pm Signed by: Edd Temple MD Technologist: HEATHER [facility] [email or web address] morphon 10-11-2018 Platelet morphology finding Nom (Bld) NORMAL Normal [facility] Comment on above: Performed By: #### 9 [id number] #### ANNIE RemHemo [address] [place] [address] Platelets (Bld) [#/Vol] NORMAL Normal [facility] Comment on above: Performed By: #### 9 [id number] #### ANNIE Sharda [address] [place] [address] Vital Signs Date Time Vital Sign Value Performing Clinician Facility 07-03-2025 08:15-0400 Body temperature 97.2 [degF] Dr. Gonzalez Barreto MD Work Phone: 0(647)533-459052 [place] [address] 07-03-2025 08:15-0400 Diastolic blood pressure 75 mm[Hg] Dr. Gonzalez Barreto MD Work Phone: 0(856)169-902852 [place] [address] 07-03-2025 08:15-0400 Heart rate 71 /min Dr. Gonzalez Barreto MD Work Phone: 0(525)823-004652 [place] [address] 07-03-2025 08:15-0400 Respiratory rate 16 /min Dr. oGnzalez Barreto MD Work Phone: 6(297)057-168152 [place] [address] 07-03-2025 08:15-0400 SaO2% (BldA) [Mass fraction] 95 % Dr. Gonzalez Barreto MD Work Phone: 1(594)880-174452 [place] [address] 07-03-2025 08:15-0400 Systolic blood pressure 120 mm[Hg] Dr. Gonzalez Barreto MD Work Phone: 2(669)357-771052 [place] [address] 07-01-2025 07:25-0400 Body height 157.[address] Gonzalez Barreto MD Work Phone: 8(620)360-738152 [place] [address] 07-01-2025 07:25-0400 Body mass index (BMI) [Ratio] 36.9 kg/m2 Dr. Gonzalez Barreto MD Work Phone: 6(475)595-181226 [address] 07-01-2025 07:25-0400 Body weight 91.[address] Gonzalez Barreto MD Work Phone: 1(294)103-642226 [address] 06-25-2025 11:23-0400 Body mass index (BMI) [Ratio] 38.78 kg/m2 Keyla Kay MD Work Phone: [facility] 06-25-2025 11:23-0400 Body weight 96.16 kg Keyla Kay MD Work Phone: [facility] 06-25-2025 11:23-0400 Diastolic blood pressure 81 mm[Hg] Keyla Kay MD Work Phone: [facility] 06-25-2025 11:23-0400 Systolic blood pressure 135 mm[Hg] Keyla Kay MD Work Phone: [facility] 06-23-2025 14:41-0400 Body mass index (BMI) [Ratio] 38.78 kg/m2 Sheryl Bejarano SANITATION WORKER [employer]ING [employer].CNM Work Phone: [facility] 06-23-2025 14:41-0400 Body weight 96.16 kg Sheryl Bejarano SANITATION WORKER [employer].CNM Work Phone: [facility] 06-23-2025 14:41-0400 Diastolic blood pressure 74 mm[Hg] Sheryl Bejarano SANITATION WORKER [employer]ANING [employer].CNM Work Phone: [facility] 06-23-2025 14:41-0400 Systolic blood pressure 118 mm[Hg] Sheryl Bejarano SANITATION WORKER [employer]ING [employer].CNM Work Phone: [facility] 06-17-2025 13:37-0400 Body mass index (BMI) [Ratio] 38.99 kg/m2 Jamey Mcghee MD Work Phone: [facility] 06-17-2025 13:37-0400 Body weight 96.71 kg Jamey Mcghee MD Work Phone: [facility] 06-17-2025 13:37-0400 Diastolic blood pressure 77 mm[Hg] Jamey Mcghee MD Work Phone: [facility] 06-17-2025 13:37-0400 Systolic blood pressure 118 mm[Hg] Jamey Mcghee MD Work Phone: [facility] 06-13-2025 14:50-0400 Diastolic blood pressure 70 mm[Hg] Dr. Gonzalez Barreto MD Work Phone: [facility] 06-13-2025 14:50-0400 Heart rate 93 /min Dr. Gonzalez Barreto MD Work Phone: 8(230)658-340052 [place] [address] 06-13-2025 14:50-0400 Systolic blood pressure 113 mm[Hg] Dr. Gonzalez Barreto MD Work Phone: 0(215)830-638652 [place] [address] 06-13-2025 14:05-0400 Body height 165.[address] Gonzalez Barreto MD Work Phone: 7(921)542-703652 [place] [address] 06-13-2025 14:05-0400 Body mass index (BMI) [Ratio] 35.9 kg/m2 Dr. Gonzalez Barreto MD Work Phone: 6(467)150-446052 [place] [address] 06-13-2025 14:05-0400 Body weight 98.[address] Gonzalez Barreto MD Work Phone: 1(808)618-007452 [place] [address] 06-13-2025 13:52-0400 SaO2% (BldA) [Mass fraction] 97 % Dr. Gonzalez Barreto MD Work Phone: 6(517)697-028352 [place] [address] 06-13-2025 13:50-0400 Body temperature 99.5 [degF] Dr. Gonzalez Barreto MD Work Phone: 4(646)328-371352 [place] [address] 06-13-2025 13:50-0400 Respiratory rate 16 /min Dr. Gonzalez Barreto MD Work Phone: 7(928)081-333552 [place] [address] 06-13-2025 12:42-0400 Body temperature 98 [degF] Dr. Gonzalez Barreto MD Work Phone: 5(893)163-548052 [place] [address] 06-13-2025 12:42-0400 Diastolic blood pressure 76 mm[Hg] Dr. Gonzalez Barreto MD Work Phone: 2(270)416-035052 [place] [address] 06-13-2025 12:42-0400 Heart rate 89 /min Dr. Gonzalez Barreto MD Work Phone: 3(413)745-773952 [place] [address] 06-13-2025 12:42-0400 Respiratory rate 16 /min Dr. Gonzalez Barreto MD Work Phone: 7(560)655-961152 [place] [address] 06-13-2025 12:42-0400 SaO2% (BldA) [Mass fraction] 97 % Dr. Gonzalez Barreto MD Work Phone: [facility] 06-13-2025 12:42-0400 Systolic blood pressure 125 mm[Hg] Dr. Gonzalez Barreto MD Work Phone: [facility] 06-13-2025 10:12-0400 Body mass index (BMI) [Ratio] 35.9 kg/m2 Dr. Gonzalez Barreto MD Work Phone: [facility] 06-13-2025 10:12-0400 Body weight 98.[address] Gonzalez Barreto MD Work Phone: [facility] 06-13-2025 10:09-0400 Body height 165.[address] Gonzalez Barreto MD Work Phone: [facility] 06-10-2025 11:41-0400 Body mass index (BMI) [Ratio] 39.32 kg/m2 Sheryl Bejarano APRN.CNM Work Phone: [facility] 06-10-2025 11:41-0400 Body weight 97.52 kg Sheryl Bejarano APRN.CNM Work Phone: [facility] 06-10-2025 11:41-0400 Diastolic blood pressure 82 mm[Hg] Sheryl Bejarano APRN.CNM Work Phone: [facility] 06-10-2025 11:41-0400 Systolic blood pressure 125 mm[Hg] Sheryl Bejarano APRN.CNM Work Phone: [facility] 06-09-2025 08:12-0400 Body height 165.1 cm Bird Leija PA-C Work Phone: [facility] 06-09-2025 08:12-0400 Body temperature 97.2 [degF] Bird BOURNE-Tom Work Phone: [facility] 06-09-2025 08:12-0400 Diastolic blood pressure 80 mm[Hg] Bird BOURNE-Tom Work Phone: [facility] 06-09-2025 08:12-0400 Heart rate 72 /min Bird Leija PA-C Work Phone: [facility] 06-09-2025 08:12-0400 Respiratory rate 18 /min Birdhodan Leija PA-C Work Phone: [facility] 06-09-2025 08:12-0400 SaO2% (BldA) [Mass fraction] 99 % Birdhodan Leija PA-C Work Phone: [facility] 06-09-2025 08:12-0400 Systolic blood pressure 128 mm[Hg] Bird Leija PA-C Work Phone: [facility] 06-03-2025 08:06-0400 Body mass index (BMI) [Ratio] 39.03 kg/m2 Christian Houston MD Work Phone: [facility] 06-03-2025 08:06-0400 Body weight 96.8 kg Christian Houston MD Work Phone: [facility] 06-03-2025 08:06-0400 Diastolic blood pressure 70 mm[Hg] Christian Houston MD Work Phone: [facility] 06-03-2025 08:06-0400 Systolic blood pressure 110 mm[Hg] Christian Houston MD Work Phone: [facility] 06-02-2025 10:49-0400 Body temperature 97.2 [degF] Treatment Wstr Work Phone: [facility] 06-02-2025 10:49-0400 Diastolic blood pressure 88 mm[Hg] Treatment Wstr Work Phone: [facility] 06-02-2025 10:49-0400 Systolic blood pressure 128 mm[Hg] Treatment Wstr Work Phone: [facility] 06-02-2025 10:44-0400 Heart rate 96 /min Treatment Wstr Work Phone: [facility] 06-02-2025 10:44-0400 SaO2% (BldA) [Mass fraction] 97 % Treatment Wstr Work Phone: [facility] 05-29-2025 15:39-0400 Body temperature 97.9 [degF] Treatment Wstr Work Phone: [facility] 05-29-2025 15:39-0400 Diastolic blood pressure 76 mm[Hg] Treatment Wstr Work Phone: [facility] 05-29-2025 15:39-0400 Heart rate 98 /min Treatment Wstr Work Phone: [facility] 05-29-2025 15:39-0400 SaO2% (BldA) [Mass fraction] 98 % Treatment Wstr Work Phone: [facility] 05-29-2025 15:39-0400 Systolic blood pressure 127 mm[Hg] Treatment Wstr Work Phone: [facility] 05-27-2025 10:31-0400 Body temperature 97.7 [degF] Treatment Wstr Work Phone: [facility] 05-27-2025 10:31-0400 Diastolic blood pressure 78 mm[Hg] Treatment Wstr Work Phone: [facility] 05-27-2025 10:31-0400 Heart rate 51 /min Treatment Wstr Work Phone: [facility] 05-27-2025 10:31-0400 SaO2% (BldA) [Mass fraction] 99 % Treatment Wstr Work Phone: [facility] 05-27-2025 10:31-0400 Systolic blood pressure 116 mm[Hg] Treatment Wstr Work Phone: [facility] 05-22-2025 15:04-0400 Diastolic blood pressure 69 mm[Hg] Treatment Wstr Work Phone: [facility] 05-22-2025 15:04-0400 Heart rate 89 /min Treatment Wstr Work Phone: [facility] 05-22-2025 15:04-0400 SaO2% (BldA) [Mass fraction] 98 % Treatment Wstr Work Phone: [facility] 05-22-2025 15:04-0400 Systolic blood pressure 121 mm[Hg] Treatment Wstr Work Phone: [facility] 05-22-2025 14:04-0400 Body temperature 98.2 [degF] Treatment Wstr Work Phone: [facility] 05-20-2025 10:50-0400 Body mass index (BMI) [Ratio] 38.41 kg/m2 Jamey Mcghee MD Work Phone: [facility] 05-20-2025 10:50-0400 Body weight 95.25 kg Jamey Mcghee MD Work Phone: [facility] 05-20-2025 10:50-0400 Diastolic blood pressure 82 mm[Hg] Jamey Mcghee MD Work Phone: [facility] 05-20-2025 10:50-0400 Systolic blood pressure 136 mm[Hg] Jamey Mcghee MD Work Phone: [facility] 05-06-2025 08:55-0400 Body mass index (BMI) [Ratio] 37.39 kg/m2 Jamey Mcghee MD Work Phone: [facility] 05-06-2025 08:55-0400 Body weight 92.72 kg Jamey Mcghee MD Work Phone: [facility] 05-06-2025 08:55-0400 Diastolic blood pressure 70 mm[Hg] Jamey Mcghee MD Work Phone: [facility] 05-06-2025 08:55-0400 Systolic blood pressure 100 mm[Hg] Jamey Mcghee MD Work Phone: [facility] 04-28-2025 15:19-0400 Diastolic blood pressure 73 mm[Hg] Keshia Moreira APRN.FAMILY MEDICINE CHAIR Work Phone: [facility] 04-28-2025 15:19-0400 Heart rate 88 /min Keshia Moreira APRN.FAMILY MEDICINE CHAIR Work Phone: [facility] 04-28-2025 15:19-0400 Respiratory rate 18 /min Keshia Vicbicki SANITATION WORKER [employer]ING [employer]ACH[employer]ERY.FAMILY MEDICINE CHAIR Work Phone: [facility] 04-28-2025 15:19-0400 SaO2% (BldA) [Mass fraction] 98 % Keshia Kubicki SANITATION WORKER CLEANING MACHINERY.FAMILY MEDICINE CHAIR Work Phone: [facility] 04-28-2025 15:19-0400 Systolic blood pressure 120 mm[Hg] Keshia Kubicki SANITATION WORKER CLEANING MACHINERY.FAMILY MEDICINE CHAIR Work Phone: [facility] 04-28-2025 13:00-0400 Body height 157.5 cm Keshia Kubicki SANITATION WORKER CLEANING MACHINERY.FAMILY MEDICINE CHAIR Work Phone: [facility] 04-28-2025 13:00-0400 Body mass index (BMI) [Ratio] 37.46 kg/m2 Keshia Kubicki SANITATION WORKER CLEANING MACHINERY.FAMILY MEDICINE CHAIR Work Phone: [facility] 04-28-2025 13:00-0400 Body temperature 98.01 [degF] Keshia Kubicki SANITATION WORKER CLEANING MACHINERY.FAMILY MEDICINE CHAIR Work Phone: [facility] 04-28-2025 13:00-0400 Body weight 92.9 kg Keshia Vicbicki SANITATION WORKER CLEANING MACHINERY.FAMILY MEDICINE CHAIR Work Phone: [facility] 04-21-2025 10:55-0400 Body mass index (BMI) [Ratio] 36.95 kg/m2 Karyn Aleman MD Work Phone: [facility] 04-21-2025 10:55-0400 Body weight 91.63 kg Karyn Aleman MD Work Phone: [facility] 04-21-2025 10:55-0400 Diastolic blood pressure 72 mm[Hg] Karyn Aleman MD Work Phone: [facility] 04-21-2025 10:55-0400 Systolic blood pressure 102 mm[Hg] Karyn Aleman MD Work Phone: [facility] 02-17-2025 15:04-0400 Body mass index (BMI) [Ratio] 35.48 kg/m2 Keyla Kay MD Work Phone: [facility] 02-17-2025 15:04-0400 Body weight 88 kg Keyla Kay MD Work Phone: [facility] 02-17-2025 15:04-0400 Diastolic blood pressure 80 mm[Hg] Keyla Kay MD Work Phone: [facility] 02-17-2025 15:04-0400 Systolic blood pressure 120 mm[Hg] Keyla Kay MD Work Phone: [facility] 01-20-2025 14:18-0400 Body mass index (BMI) [Ratio] 34.93 kg/m2 Sheryl Bejarano SANITATION WORKER [employer].CNM Work Phone: [facility] 01-20-2025 14:18-0400 Body weight 86.64 kg Sheryl Bejarano SANITATION WORKER [employer].CNM Work Phone: [facility] 01-20-2025 14:18-0400 Diastolic blood pressure 68 mm[Hg] Sheryl Bejarano SANITATION WORKER CLEANING MACHINERY.CNM Work Phone: [facility] 01-20-2025 14:18-0400 Systolic blood pressure 108 mm[Hg] Sheryl Bejarano SANITATION WORKER CLEANING MACHINERY.CNM Work Phone: [facility] 12-23-2024 14:26-0500 Body mass index (BMI) [Ratio] 35.48 kg/m2 Naila Escobar SANITATION WORKER CLEANING MACHINERY.RETAIL MERCHANDISING COORDINATOR Work Phone: [facility] 12-23-2024 14:26-0500 Body weight 88 kg Naila Hakyle SANITATION WORKER CLEANING MACHINERY.RETAIL MERCHANDISING COORDINATOR Work Phone: [facility] 12-23-2024 14:26-0500 Diastolic blood pressure 70 mm[Hg] Naila Haury SANITATION WORKER CLEANING MACHINERY.RETAIL MERCHANDISING COORDINATOR Work Phone: [facility] 12-23-2024 14:26-0500 Systolic blood pressure 118 mm[Hg] Naila Haury SANITATION WORKER CLEANING MACHINERY.RETAIL MERCHANDISING COORDINATOR Work Phone: [facility] 12-16-2024 15:13-0500 Body mass index (BMI) [Ratio] 35.12 kg/m2 Sheryl Bejarano SANITATION WORKER CLEANING MACHINERY.CNM Work Phone: [facility] 12-16-2024 15:13-0500 Body weight 87.09 kg Sheryl Bejarano SANITATION WORKER CLEANING MACHINERY.CNM Work Phone: [facility] 12-16-2024 15:13-0500 Diastolic blood pressure 76 mm[Hg] Sheryl Bejarano SANITATION WORKER CLEANING MACHINERY.CNM Work Phone: [facility] 12-16-2024 15:13-0500 Systolic blood pressure 112 mm[Hg] Sheryl Bejarano SANITATION WORKER CLEANING MACHINERY.CNM Work Phone: [facility] 12-09-2024 11:06-0500 Body mass index (BMI) [Ratio] 35.12 kg/m2 Yonatan Patel MD Work Phone: [facility] 12-09-2024 11:06-0500 Body weight 87.09 kg Yonatan Patel MD Work Phone: [facility] 12-09-2024 11:06-0500 Diastolic blood pressure 78 mm[Hg] Yonatan Patel MD Work Phone: [facility] 12-09-2024 11:06-0500 Systolic blood pressure 120 mm[Hg] Yonatan Patel MD Work Phone: [facility] 11-25-2024 09:25-0500 Body height 157.5 cm Naila Escobar APRN.RETAIL MERCHANDISING COORDINATOR Work Phone: [facility] 11-25-2024 09:25-0500 Body mass index (BMI) [Ratio] 35.81 kg/m2 Naila Escobar SANITATION WORKER CLEANING MACHINERY.RETAIL MERCHANDISING COORDINATOR Work Phone: [facility] 11-25-2024 09:25-0500 Body weight 88.81 kg Naila Escobar SANITATION WORKER CLEANING MACHINERY.RETAIL MERCHANDISING COORDINATOR Work Phone: [facility] 11-25-2024 09:25-0500 Diastolic blood pressure 84 mm[Hg] Naila Escobar SANITATION WORKER CLEANING MACHINERY.RETAIL MERCHANDISING COORDINATOR Work Phone: [facility] 11-25-2024 09:25-0500 Systolic blood pressure 128 mm[Hg] Naila Escobar LYLY.RETAIL MERCHANDISING COORDINATOR Work Phone: [facility] 11-06-2023 15:19-0500 Body height 157.5 cm Mandy Newbill PA-C Work Phone: [facility] 11-06-2023 15:19-0500 Body mass index (BMI) [Ratio] 35.67 kg/m2 Mandy Newbill PA-C Work Phone: [facility] 11-06-2023 15:19-0500 Body temperature 97.5 [degF] Mandy Newbill PA-C Work Phone: [phone](340)[phone] [place] [address] 11-06-2023 15:19-0500 Body weight 88.45 kg Mandy Newbill PA-C Work Phone: [facility] 11-06-2023 15:19-0500 Diastolic blood pressure 94 mm[Hg] Mandy Newbill PA-C Work Phone: [facility] 11-06-2023 15:19-0500 Heart rate 98 /min Mandy Newbill PA-C Work Phone: [facility] 11-06-2023 15:19-0500 SaO2% (BldA) [Mass fraction] 94 % Mandy Newbill PA-C Work Phone: [facility] 11-06-2023 15:19-0500 Systolic blood pressure 156 mm[Hg] Mandy Newbill PA-C Work Phone: [facility] 09-19-2023 15:48-0500 Body height 157.5 cm Mandy Newbill PA-C Work Phone: [facility] 09-19-2023 15:48-0500 Body mass index (BMI) [Ratio] 35.01 kg/m2 Mandy Newbill PA-C Work Phone: 0(350)[phone] [place] [address] 09-19-2023 15:48-0500 Body temperature 97.7 [degF] Mandy Newbill PA-C Work Phone: [facility] 09-19-2023 15:48-0500 Body weight 86.82 kg Mandy Newbill PA-C Work Phone: [facility] 09-19-2023 15:48-0500 Diastolic blood pressure 83 mm[Hg] Mandy Newbill PA-C Work Phone: [facility] 09-19-2023 15:48-0500 Heart rate 87 /min Mandy Newbill PA-C Work Phone: [facility] 09-19-2023 15:48-0500 SaO2% (BldA) [Mass fraction] 96 % Mandy Newbill PA-C Work Phone: [facility] 09-19-2023 15:48-0500 Systolic blood pressure 137 mm[Hg] Mandy Newbill PA-C Work Phone: [facility] 03-31-2023 13:23-0400 Body height 157.5 cm Zachariah Vargas MD Work Phone: [facility] 03-31-2023 13:23-0400 Body mass index (BMI) [Ratio] 34.02 kg/m2 Zachariah Vargas MD Work Phone: [facility] 03-31-2023 13:23-0400 Body temperature 98.6 [degF] Zachariah Vargas MD Work Phone: [facility] 03-31-2023 13:23-0400 Body weight 84.37 kg Zachariah Vargas MD Work Phone: [facility] 03-31-2023 13:23-0400 Diastolic blood pressure 93 mm[Hg] Zachariah Vargas MD Work Phone: [facility] 03-31-2023 13:23-0400 Heart rate 92 /min Zachariah Vargas MD Work Phone: [facility] 03-31-2023 13:23-0400 Respiratory rate 16 /min Zachariah Vargas MD Work Phone: [facility] 03-31-2023 13:23-0400 SaO2% (BldA) [Mass fraction] 96 % Zachariah Vargas MD Work Phone: [facility] 03-31-2023 13:23-0400 Systolic blood pressure 133 mm[Hg] Zachariah Vargas MD Work Phone: [facility] 12-28-2022 11:31-0500 Diastolic blood pressure 88 mm[Hg] Rosalina Muñiz MD Work Phone: [facility] 12-28-2022 11:31-0500 Heart rate 101 /min Rosalina Muñiz MD Work Phone: [facility] 12-28-2022 11:31-0500 Systolic blood pressure 131 mm[Hg] Rosalina Muñiz MD Work Phone: [facility] 12-28-2022 11:30-0500 Body height 157.5 cm Rosalina Muñiz MD Work Phone: [facility] 12-28-2022 11:30-0500 Body mass index (BMI) [Ratio] 32.56 kg/m2 Rosalina Muñiz MD Work Phone: [facility] 12-28-2022 11:30-0500 Body temperature 98.01 [degF] Rosalina Muñiz MD Work Phone: [facility] 12-28-2022 11:30-0500 Body weight 80.74 kg Rosalina Muñiz MD Work Phone: [facility] 12-28-2022 11:30-0500 Respiratory rate 16 /min Rosalnia Muñiz MD Work Phone: [facility] 12-28-2022 11:30-0500 SaO2% (BldA) [Mass fraction] 99 % Rosalina Muñiz MD Work Phone: [facility] 12-12-2022 18:40-0500 Body height 157.5 cm Rosalina Muñiz MD Work Phone: [facility] 12-12-2022 18:40-0500 Body mass index (BMI) [Ratio] 33.11 kg/m2 Rosalina Muñiz MD Work Phone: [facility] 12-12-2022 18:40-0500 Body temperature 98.2 [degF] Rosalina Muñiz MD Work Phone: [facility] 12-12-2022 18:40-0500 Body weight 82.1 kg Rosalina Muñiz MD Work Phone: [facility] 12-12-2022 18:40-0500 Diastolic blood pressure 85 mm[Hg] Rosalina Muñiz MD Work Phone: [facility] 12-12-2022 18:40-0500 Heart rate 96 /min Rosalina Muñiz MD Work Phone: [facility] 12-12-2022 18:40-0500 Respiratory rate 16 /min Rosalina Muñiz MD Work Phone: [facility] 12-12-2022 18:40-0500 SaO2% (BldA) [Mass fraction] 98 % Rosalina Muñiz MD Work Phone: [facility] 12-12-2022 18:40-0500 Systolic blood pressure 130 mm[Hg] Rosalina Muñiz MD Work Phone: [facility] 11-08-2022 17:52-0500 Body height 157.5 cm Rosalina Muñiz MD Work Phone: [facility] 11-08-2022 17:52-0500 Body mass index (BMI) [Ratio] 33.11 kg/m2 Rosalina Muñiz MD Work Phone: [facility] 11-08-2022 17:52-0500 Body temperature 98.4 [degF] Rosalina Muñiz MD Work Phone: [facility] 11-08-2022 17:52-0500 Body weight 82.1 kg Rosalina Muñiz MD Work Phone: [facility] 11-08-2022 17:52-0500 Diastolic blood pressure 86 mm[Hg] Rosalina Muñiz MD Work Phone: [facility] 11-08-2022 17:52-0500 Heart rate 93 /min Rosalina Muñiz MD Work Phone: [facility] 11-08-2022 17:52-0500 Respiratory rate 16 /min Rosalina Muñiz MD Work Phone: [facility] 11-08-2022 17:52-0500 SaO2% (BldA) [Mass fraction] 95 % Rosalina Muñiz MD Work Phone: [facility] 11-08-2022 17:52-0500 Systolic blood pressure 137 mm[Hg] Rosalina Muñiz MD Work Phone: [facility] 03-02-2022 11:13-0400 Body height 152.4 cm Rosi Tickfaw DO Work Phone: [place] [address] [address] Work Phone: 03-02-2022 11:13-0400 Body mass index (BMI) [Ratio] 37.11 kg/m2 Rosi Tickfaw DO Work Phone: [place] [address] [address] Work Phone: 03-02-2022 11:13-0400 Body surface area Derived from formula 1.83 m2 Rosi Tickfaw DO Work Phone: [place] [address] [address] Work Phone: 03-02-2022 11:13-0400 Body weight 86.2 kg Rosi Rafi DO Work Phone: [place] [address] [address] Work Phone: 03-02-2022 11:13-0400 Diastolic blood pressure 80 mm[Hg] Rosi Tickfaw DO Work Phone: [place] [address] [address] Work Phone: 03-02-2022 11:13-0400 Systolic blood pressure 120 mm[Hg] Rosi Rafi DO Work Phone: [address] Work Phone: 12-10-2021 11:03-0500 Diastolic blood pressure 87 mm[Hg] Ganesh Boggs MD Work Phone: [facility] 12-10-2021 11:03-0500 Heart rate 80 /min Ganesh Boggs MD Work Phone: [facility] 12-10-2021 11:03-0500 Systolic blood pressure 130 mm[Hg] Ganesh Boggs MD Work Phone: [facility] 12-10-2021 10:59-0500 Body height 157.5 cm Ganesh Boggs MD Work Phone: [facility] 12-10-2021 10:59-0500 Body mass index (BMI) [Ratio] 33.84 kg/m2 Ganesh Boggs MD Work Phone: [facility] 12-10-2021 10:59-0500 Body temperature 97.59 [degF] Ganesh Boggs MD Work Phone: [facility] 12-10-2021 10:59-0500 Body weight 83.92 kg Ganesh Boggs MD Work Phone: [facility] 12-10-2021 10:59-0500 Respiratory rate 16 /min Ganesh Boggs MD Work Phone: [facility] 12-10-2021 10:59-0500 SaO2% (BldA) [Mass fraction] 98 % Ganesh Boggs MD Work Phone: [facility] 08-23-2021 15:58-0400 Body height 157.5 cm Rosalina Muñiz MD Work Phone: [facility] 08-23-2021 15:58-0400 Body mass index (BMI) [Ratio] 33.65 kg/m2 Rosalina Muñiz MD Work Phone: [facility] 08-23-2021 15:58-0400 Body temperature 98.29 [degF] Rosalina Muñiz MD Work Phone: [facility] 08-23-2021 15:58-0400 Body weight 83.46 kg Rosalina Muñiz MD Work Phone: [facility] 08-23-2021 15:58-0400 Diastolic blood pressure 80 mm[Hg] Rosalina Muñiz MD Work Phone: [facility] 08-23-2021 15:58-0400 Heart rate 65 /min Rosalina Muñiz MD Work Phone: [facility] 08-23-2021 15:58-0400 Respiratory rate 16 /min Rosalina Muñiz MD Work Phone: [facility] 08-23-2021 15:58-0400 SaO2% (BldA) [Mass fraction] 99 % Rosalina Muñiz MD Work Phone: [facility] 08-23-2021 15:58-0400 Systolic blood pressure 120 mm[Hg] Rosalina Muñiz MD Work Phone: [facility] 08-16-2021 14:40-0400 Body height 157 cm Text Entry [facility] 08-16-2021 14:40-0400 Body temperature 97.52 [degF] Text Entry [facility] 08-16-2021 14:40-0400 Diastolic blood pressure 83 mm[Hg] Text Entry [facility] 08-16-2021 14:40-0400 Heart rate 86 /min Text Entry [facility] 08-16-2021 14:40-0400 SaO2% (BldA) [Mass fraction] 97 % Text Entry [facility] 08-16-2021 14:40-0400 Systolic blood pressure 118 mm[Hg] Text Entry [facility] 06-08-2021 09:31-0400 Body height 152.4 cm Xenia Starr Work Phone: [address] Work Phone: 06-08-2021 09:31-0400 Body mass index (BMI) [Ratio] 36.68 kg/m2 Xenia Starr Work Phone: [facility] [address] Work Phone: 06-08-2021 09:31-0400 Body surface area Derived from formula 1.82 m2 Xenia Head Ro Work Phone: [facility] [address] Work Phone: 06-08-2021 09:31-0400 Body temperature 97.1 [degF] Xenia Head Ro Work Phone: [facility] [address] [address] Work Phone: 06-08-2021 09:31-0400 Body weight 85.2 kg Xenia Starr Work Phone: [facility] [address] Work Phone: 06-08-2021 09:31-0400 Diastolic blood pressure 82 mm[Hg] Xenia Starr Work Phone: [place] [address] [address] Work Phone: 06-08-2021 09:31-0400 Systolic blood pressure 108 mm[Hg] Xenia Starr Work Phone: [facility] [address] Work Phone: 08-05-2020 11:00-0400 BMI (Body Mass Index) 36.32 kg/m2 Rosi [facility]endo[facility] [address] Work Phone: 08-05-2020 11:00-0400 Body Temperature 97.1 [degF] [facility] [address] Work Phone: 08-05-2020 11:00-0400 Body weight 86.9 kg Rosi Tickfaw [facility] [address] Work Phone: 08-05-2020 11:00-0400 BP Diastolic 80 mm[Hg] Rosi Mendoza [facility] [address] Work Phone: Comment on above: Location: LUE; Position: Sitting 08-05-2020 11:00-0400 BP Systolic 110 mm[Hg] [facility]C [facility] [address] Work Phone: Comment on above: Location: LUE; Position: Sitting 08-05-2020 11:00-0400 BSA (Body Surface Area) 1.85 m2 [facility] [employer] Work Phone: 08-05-2020 11:00-0400 Height 154.69 cm Rosi Mendoza [facility] [address] Work Phone: Encounters Encounter Date Encounter Type Care Provider Facility Start: 09-02-2025 End: 09-02-2025 ambulatory YUDI NDIAYE Facility:[facility] Start: 08-26-2025 End: 08-26-2025 ambulatory BESSY CURRY Facility:[facility] Start: 08-19-2025 End: 08-19-2025 ambulatory BESSY CURRY Facility:[facility] Start: 08-14-2025 End: 08-14-2025 ambulatory ELEANOR GOMEZ Facility:[facility] Start: 07-17-2025 End: 07-17-2025 ambulatory AMPARO HAGER Facility:[facility] Start: 07-02-2025 End: 07-02-2025 ambulatory Keyla Kay MD Work Phone: OB/Gynecology Comment on above: Ob Delivery Note Start: 07-01-2025 End: 07-03-2025 Evaluation and management of inpatient Dr. Keyla Kay MD [facility] Work Phone: Start: 06-25-2025 End: 06-25-2025 ambulatory CHRISTIAN HOUSTON Facility:[facility] Start: 06-25-2025 End: 06-25-2025 Patient encounter procedure Keyal Kay MD Work Phone: OB/Gynecology Comment on above: Supervision of high risk in third trimester (HCC) (Primary Dx); Anemia complicating , third trimester (HCC); Other obesity affecting in third trimester (HCC); Polyhydramnios in third trimester complication, single or unspecified fetus (HCC); Pulmonary embolism affecting in third trimester (HCC); Excessive growth, antepartum, single or unspecified fetus (HCC); 38 weeks gestation of (HCC) Start: 06-24-2025 End: 06-24-2025 ambulatory Angeles Juan RN BLOOD MANAGEMENT Comment on above: Labs Needed Start: 06-24-2025 End: 06-24-2025 E-mail encounter from caregiver Angeles Juan RN BLOOD MANAGEMENT Start: 06-23-2025 End: 06-23-2025 ambulatory SHERYL BEJARANO Facility:[facility] Start: 06-23-2025 End: 06-23-2025 Patient encounter procedure Sheryl Bejarano APRN.CNM Work Phone: OB/Gynecology Comment on above: Supervision of high risk in third trimester (HCC) (Primary Dx); Anemia complicating , third trimester (HCC); Group beta Strep positive; Other obesity affecting in third trimester (HCC); Polyhydramnios in third trimester complication, single or unspecified fetus (HCC); Pulmonary embolism affecting in third trimester (HCC); 38 weeks gestation of (HCC); Excessive growth, antepartum, single or unspecified fetus (HCC) Excessive grow th, antepartum, single or unspecified fetus (HCC) (Primary Dx); 36 weeks gestation of (HCC); Supervision of high risk in third trimester (HCC); Polyhydramnios in third trimester complication, single or unspecified fetus (HCC); Obesity affecting in second trimester, unspecified obesity type (HCC) Start: 06-23-2025 End: 06-23-2025 Telephone encounter Sheryl Bejarano APRN.CNM Work Phone: OB/Gynecology Comment on above: Nst (Non Stress Test ) Start: 06-17-2025 End: 06-17-2025 Patient encounter procedure Jamey Mcghee MD Work Phone: OB/Gynecology Comment on above: 37 weeks gestation o f (HCC) (Primary Dx); Group beta Strep positive; Anemia complicating , third trimester (HCC); Other obesity affecting in third trimester (HCC); Polyhydramnios in third trimester complication, single or unspecified fetus (HCC); Pulmonary embolism affecting in third trimester (HCC) Start: 06-17-2025 End: 06-17-2025 ambulatory CHRISTIAN HOUSTON Facility:[facility] Start: 06-16-2025 End: 06-16-[address] Gonzalez Barreto MD Work Phone: -Laboratory Specimen Start: 06-16-2025 End: 06-16-[address] Kerry Paniagua MD -Laboratory Specimen Work Phone: Start: 06-16-2025 End: 06-16-2025 ambulatory Kerry Paniagua Facility:[facility] Start: 06-13-2025 End: 06-13-2025 Telephone encounter Kerry Paniagua MD Work Phone: OB/Gynecology Comment on above: Headache in pregnanc y Proteinuria affectin g in third trimester (HCC) (Primary Dx); Pulmonary embolism affecting in third trimester (HCC) Start: 06-13-2025 End: 06-13-[address] Gonzalez Barreto MD Work Phone: [facility] Start: 06-13-2025 End: 06-13-[address] Kerry Paniagua MD [facility] Work Phone: Start: 06-10-2025 End: 06-10-2025 Patient encounter procedure Sheryl Bejarano APRN.CNM Work Phone: OB/Gynecology Comment on above: Supervision of high risk in third trimester (HCC) (Primary Dx); 36 weeks gestation of (HCC); Other obesity affecting in third trimester (HCC); Anemia during in third trimester (HCC); Polyhydramnios in third trimester complication, single or unspecified fetus (HCC) Start: 06-10-2025 End: 06-10-2025 ambulatory CHRISTIAN HOUSTON Facility:[facility] Start: 06-09-2025 End: 06-09-2025 Patient encounter procedure Bird Leija PA-C -[facility] Work Phone: Start: 06-09-2025 End: 06-09-2025 [facility] Start: 06-08-2025 End: 06-08-2025 ambulatory Naila Bourne RN NURSE CHOIR TEACHER Comment on above: Hemorrhoids Start: 06-04-2025 End: 06-04-2025 ambulatory YUDI NDIAYE Facility:[facility] Start: 06-03-2025 End: 06-03-2025 Patient encounter procedure Christian Houston MD Work Phone: OB/Gynecology Comment on above: Supervision of high risk in third trimester (HCC) (Primary Dx); Anemia during in third trimester (HCC); Other obesity affecting in third trimester (HCC); 35 weeks gestation of (HCC); Polyhydramnios in third trimester complication, single or unspecified fetus (HCC) Obesity affecting pr egnancy in third trimester, unspecified obesity type (HCC) (Primary Dx); Encounter for ultrasound to assess growth (HCC); 35 weeks gestation of (HCC); Polyhydramnios in third trimester complication, single or unspecified fetus (HCC) Start: 06-03-2025 End: 06-03-2025 ambulatory KARYN ALEMAN Facility:[facility] Start: 06-02-2025 End: 06-02-2025 ambulatory Treatment Rm 15 Mk [facility] [employer] Work Phone: Hematology/Oncology Comment on above: Maternal iron defici ency anemia complicating , third trimester (HCC) (Primary Dx) Start: 05-29-2025 End: 05-29-2025 ambulatory Treatment Rm 14 Mk [facility] Work Phone: Hematology/Oncology Comment on above: Maternal iron defici ency anemia complicating , third trimester (HCC) (Primary Dx) Start: 05-27-2025 End: 05-27-2025 ambulatory Treatment Rm 15 Mk [facility] Work Phone: Hematology/Oncology Comment on above: Maternal iron defici ency anemia complicating , third trimester (HCC) (Primary Dx) Start: 05-22-2025 End: 05-22-2025 ambulatory Treatment Rm 15 Mk [facility] Work Phone: Hematology/Oncology Comment on above: Maternal iron defici ency anemia complicating , third trimester (HCC) (Primary Dx) Start: 05-20-2025 End: 05-20-2025 ambulatory JAMEY MCGHEE Facility:[facility] Start: 05-20-2025 End: 05-20-2025 Patient encounter procedure Jamey Mcghee MD Work Phone: OB/Gynecology Comment on above: Supervision of high risk in third trimester (HCC) (Primary Dx); Other obesity affecting in third trimester (HCC); Antepartum anemia, third trimester (HCC); 33 weeks gestation of (HCC) Start: 05-20-2025 End: 05-20-2025 ambulatory YUDI ZELDA Facility:[facility] Start: 05-20-2025 End: 05-20-2025 Patient encounter procedure Yudi Zelda ZHAO Work Phone: BLOOD MANAGEMENT Comment on above: Maternal iron defici ency anemia complicating , third trimester (HCC) (Primary Dx) Start: 05-20-2025 End: 05-20-2025 Telemedicine consultation with patient Yudi Butterfieldfrancisca ZHAO Work Phone: BLOOD MANAGEMENT Start: 05-06-2025 End: 07-06-2025 Follow-up encounter Keyla Kay MD Work Phone: OB/Gynecology Start: 05-06-2025 End: 05-06-2025 ambulatory KEYLA KAY Facility:[facility] Start: 05-06-2025 End: 05-06-2025 Patient encounter procedure Jamey Mcghee MD Work Phone: OB/Gynecology Comment on above: 31 weeks gestation o f (HCC) (Primary Dx); Anemia complicating , first trimester (HCC); Antepartum anemia, third trimester (HCC); Other obesity affecting in third trimester (HCC); Supervision of high risk in third trimester (HCC) Encounter for ultras ound to check growth (HCC) (Primary Dx); 31 weeks gestation of (HCC) Start: 04-28-2025 End: 04-28-2025 Patient encounter procedure Keshia Moreira APRN.FAMILY MEDICINE CHAIR Work Phone: Allergy Comment on above: Rash (Primary Dx); Penicillin allergy; 30 weeks gestation of (HCC) Start: 04-28-2025 End: 04-28-2025 ambulatory KEYLA KAY Facility:[facility] Start: 04-22-2025 End: 04-22-2025 Follow-up encounter Keyla Kay MD Work Phone: OB/Gynecology Start: 04-21-2025 End: 04-21-2025 Patient encounter procedure Karyn Aleman MD Work Phone: OB/Gynecology Comment on above: Obesity affecting pr egnancy in second trimester, unspecified obesity type (HCC) (Primary Dx); 29 weeks gestation of (HCC); Supervision of high risk in second trimester ([facility]); Need for vaccination Start: 04-21-2025 End: 04-21-2025 ambulatory KARYN ALEMAN Facility:[facility] Start: 03-20-2025 End: 03-20-2025 ambulatory KEYLA KAY Facility:[facility] Start: 02-17-2025 End: 02-17-2025 Patient encounter procedure Keyla Kay MD Work Phone: OB/Gynecology Comment on above: 20 weeks gestation o f (HCC) (Primary Dx); Supervision of high risk in second trimester ([facility]); Obesity affecting in second trimester, unspecified obesity type (HCC); 8 weeks gestation of (HCC); Penicillin allergy Encounter for anatomic survey ([facility]) (Primary Dx); 20 weeks gestation of (HCC); Obesity affecting in second trimester, unspecified obesity type (HCC) Start: 02-17-2025 End: 02-17-2025 ambulatory NAILA ESCOBAR Facility:[facility] Start: 01-20-2025 End: 01-20-2025 Patient encounter procedure Sheryl Bejarano APRN.CNM Work Phone: OB/Gynecology Comment on above: Supervision of high risk in second trimester (Primary Dx); Obesity affecting in second trimester, unspecified obesity type; Anemia during in second trimester; 16 weeks gestation of ; History of depression; Penicillin allergy Start: 01-20-2025 End: 01-20-2025 [facility] Facility:[facility] Start: 12-26-2024 End: 12-26-2024 Telephone encounter Naila Escobar APRN.CNP Work Phone: OB/Gynecology Comment on above: Results Start: 12-23-2024 End: 12-23-2024 ambulatory NAILA ESCOBAR Facility:[facility] Start: 12-23-2024 End: 12-23-2024 Patient encounter procedure Whi Tech 1 Artificial Log Machine Operator Mfm Wstr Mob Maternal Medicine Comment on above: Encounter for antena ed screening for malformation using ultrasound (Primary Dx); 12 weeks gestation of Supervision of high risk in second trimester (Primary Dx); 12 weeks gestation of ; Obesity affecting in second trimester, unspecified obesity type; Skin lesion of breast; History of migraine headaches Start: 12-16-2024 End: 12-16-2024 Patient encounter procedure Sherylrandy Bejarano APRN.CNM Work Phone: OB/Gynecology Comment on above: Encounter for superv ision of high risk in first trimester, antepartum (Primary Dx); Encounter for fitting and adjustment of pessary Start: 12-16-2024 End: 12-16-2024 [facility] Start: 12-11-2024 End: 02-10-2025 Follow-up encounter Yonatan Patel MD Work Phone: OB/Gynecology Start: 12-09-2024 End: 12-09-2024 ambulatory YONATAN PATEL Facility:[facility] Start: 12-09-2024 End: 12-09-2024 Patient encounter procedure Yonatan Patel MD Work Phone: OB/Gynecology Comment on above: Encounter for superv ision of high risk in first trimester, antepartum (Primary Dx); Dysuria during in first trimester; Difficulty in urination Start: 11-29-2024 End: 11-29-2024 Chart abstracting Naila Escobar APRN.RETAIL MERCHANDISING COORDINATOR Work Phone: OB/Gynecology Comment on above: [facility] Results Start: 11-25-2024 End: 11-25-2024 Patient encounter procedure Naila Escobar APRN.DENNIS Work Phone: OB/Gynecology Comment on above: Encounter for superv ision of high risk in first trimester, antepartum (Primary Dx); with uncertain dates in first trimester; 8 weeks gestation of ; Screening for cervical cancer; Screening for HPV (human papillomavirus); Asthma affecting in first trimester; Obesity affecting in first trimester, unspecified obesity type; Skin lesion of breast; Nausea and vomiting during ; History of depression; Penicillin allergy Start: 11-25-2024 End: 11-25-2024 ambulatory NAILA ESCOBAR Facility:[facility] Start: 11-25-2024 ambulatory AMPARO HAGER Facility: [facility] Start: 11-22-2024 End: 12-26-2024 Telephone encounter Amparo Hager APRN.CNP Work Phone: OB/Gynecology Start: 11-20-2024 End: 11-20-2024 Telephone encounter Amparo Hager APRN.CNP Work Phone: OB/Gynecology Comment on above: New OB intake questi ons Start: 10-20-2024 End: 10-20-2024 Subsequent hospital visit by physician Germán X-Ray Fluoro 1 [facility] Comment on above: Pneumonia, unspecifi ed organism Start: 10-20-2024 End: 10-20-2024 ambulatory VAISHALI Cuevas [facility] Start: 11-06-2023 End: 11-06-2023 ambulatory [facility] Start: 11-06-2023 End: 11-06-2023 Office outpatient visit 25 minutes Mandy Plascencia PA-C Work Phone: [facility] Comment on above: Acute asthmatic bron chitis (Primary Dx) Start: 10-18-2023 End: 10-18-2023 ambulatory [facility] Start: 09-19-2023 End: 09-19-2023 ambulatory [facility] Start: 09-19-2023 End: 09-19-2023 Office outpatient new 45 minutes Mandy Plascencia PA-C Work Phone: [facility] Comment on above: Other iron deficienc y anemia (Primary Dx); PCOS (polycystic ovarian syndrome); Anxiety; Tension headache; Mild intermittent asthma, unspecified whether complicated Start: 03-31-2023 End: 03-31-2023 ambulatory ROSALINA ZUNILDA [facility] Start: 03-31-2023 End: 03-31-2023 Office outpatient visit 15 minutes Zachariah Vargas MD Work Phone: [facility] Comment on above: Upper respiratory tr act infection, unspecified type (Primary Dx); Other atopic dermatitis Start: 03-20-2023 ambulatory ROSALINA ZUNILDA [facility] Start: 02-08-2023 Orders Only Rosalina Muñiz MD Work Phone: [facility] Start: 12-28-2022 End: 12-28-2022 ambulatory ROSALINA ZUNILDA [facility] Start: 12-28-2022 End: 12-28-2022 Office outpatient visit 25 minutes Rosalina Muñiz MD Work Phone: [facility] Comment on above: Otalgia of both ears ; Obesity (BMI 30-39.9) Start: 12-22-2022 Documentation procedure Vaishali chaidez DOOR REPAIRER BUS [facility] Comment on above: TAYLA Greene- An mare Start: 12-12-2022 End: 12-12-2022 ambulatory ROSALINA ZUNILDA [facility] Start: 12-12-2022 End: 12-12-2022 Office outpatient visit 25 minutes Rosalina Muñiz MD Work Phone: [facility] Comment on above: PCOS (polycystic ova shadi syndrome) (Primary Dx); Obesity (BMI 30-39.9); Infertility, female Start: 11-11-2022 Orders Only Rosalina Muñiz MD Work Phone: [facility] Comment on above: Iron deficiency anem ia, unspecified iron deficiency anemia type (Primary Dx) Start: 11-10-2022 Orders Only Rosalina Muñiz MD Work Phone: [facility] Comment on above: Anemia, unspecified type (Primary Dx) Start: 11-09-2022 End: 11-13-2022 ambulatory ROSALINAGIRISH MUÑIZ [facility] Start: 11-08-2022 End: 11-08-2022 [facility] Start: 11-08-2022 End: 11-08-2022 Office outpatient visit 40 minutes Rosalina Muñiz MD Work Phone: [facility] Comment on above: Obesity (BMI 30-39.9 ) (Primary Dx); Sinusitis, unspecified chronicity, unspecified location; PCOS (polycystic ovarian syndrome) Start: 10-18-2022 End: 10-18-2022 ambulatory ROSALINAGIRISH MUÑIZ [facility] Start: 09-19-2022 AUDIT Litzy Nam Work Phone: [facility] [address] [address] Work Phone: Start: 09-13-2022 Chart Update Litzy Nam Work Phone: [facility] [address] [address] Work Phone: Start: 08-23-2022 AUDIT Rosi Tickfaw DO Work Phone: [facility] [address] Work Phone: Start: 08-16-2022 Chart Update Rosi Tickfaw DO Work Phone: [facility] [address] Work Phone: Start: 08-15-2022 End: 08-15-2022 [facility] Start: 07-27-2022 AUDIT Rosi Tickfaw DO Work Phone: [facility] [address] Work Phone: Start: 07-20-2022 Rx Renewal Rosi Tickfaw DO Work Phone: [facility] [address] [address] Work Phone: Start: 07-19-2022 Chart Update Rosi Tickfaw DO Work Phone: [facility] [address] [address] Work Phone: Start: 06-28-2022 AUDIT Rosi Tickfaw DO Work Phone: [facility] [address] Work Phone: Start: 06-23-2022 Rx Renewal Rosi Tickfaw DO Work Phone: [facility] [address] Work Phone: Start: 06-21-2022 AUDIT Rosi Rafi DO Work Phone: [facility] [address] [address] Work Phone: Start: 05-04-2022 AUDIT Rosi Rafi DO Work Phone: [facility] [address] [address] Work Phone: Start: 04-25-2022 Chart Update Rosi Rafi DO Work Phone: [facility] [address] [address] Work Phone: Start: 03-30-2022 AUDIT Rosi Tickfaw DO Work Phone: [facility] [address] Work Phone: Start: 03-29-2022 Chart Update Rosi Rafi DO Work Phone: [facility] [address] [address] Work Phone: Start: 03-04-2022 AUDIT Rosi Rafi DO Work Phone: [facility] [address] Work Phone: Start: 03-02-[address] Rosi sagety:[id number] Start: 01-06-2022 End: 01-06-2022 Office outpatient visit 15 minutes Federica Rossi CNP Work Phone: [facility] Comment on above: Bronchitis Start: 12-14-[address] Rosi sagety:[facility] Start: 12-10-2021 End: 12-10-2021 Office outpatient visit 15 minutes Ganesh Boggs MD Work Phone: [facility] Comment on above: Herpes zoster withou t complication (Primary Dx) Start: 11-05-2021 End: 11-05-2021 ambulatory ROSALINA MUÑIZ [facility] Start: 11-05-2021 End: 11-05-2021 Phys/qhp telephone evaluation 5-10 min Federica Rossi CNP Work Phone: [facility] Comment on above: Flu-like symptoms (P rimary Dx) Start: 08-23-2021 End: 08-23-2021 Office outpatient new 30 minutes Rosalina Muñiz MD Work Phone: [facility] Comment on above: Obesity (BMI 30-39.9 ) (Primary Dx); Intractable chronic migraine without aura and without status migrainosus Start: 08-16-2021 End: 08-16-2021 Emergency department patient visit Felicita Beltran [facility] Start: 06-08-2021 Office outpatient vi sit 15 minutes Xenia Starr Work Phone: [facility] [address] Work Phone: Start: 08-05-2020 Patient encounter procedure Rosi Tickfaw [facility] [address] Work Phone: Start: 04-03-2020 Patient encounter procedure Rosi Tickfaw [facility] [address] Work Phone: Start: 11-08-2019 Patient encounter procedure Rosi Tickfaw [facility] [address] Work Phone: Start: 09-30-2019 Patient encounter procedure Rosi Tickfaw [facility] [address] Work Phone: Start: 09-20-2019 Patient encounter procedure Rosi Tickfaw [facility] [address] Work Phone: Start: 09-13-2019 Patient encounter procedure Rosi Tickfaw [facility] [address] Work Phone: Start: 09-06-2019 Patient encounter procedure Rosi Mendoza [place] [address] [address] Work Phone: Start: 08-27-2019 Patient encounter procedure Rosi Mendoza [place] [address] [address] Work Phone: Start: 08-12-2019 Patient encounter procedure Rosi Mendoza [place] [address] [address] Work Phone: Start: 10-08-2018 End: 10-08-2018 Patient encounter procedure Radha Johnson Work Phone: [facility] HOSE OPERATOR Comment on above: Transfer Of Care Menarche Xenia Starr Work Phone: [place] [address] [address] Work Phone: Comment on above: AGE 14; Patient encounter procedure Rosi Mendoza DO Work Phone: [place] [address] [address] Work Phone: Procedures Date Procedure Procedure Detail Performing Clinician Start: 07-01-2025 Serologic test for syphilis Dr. Gonzalez Barreto MD Work Phone: Start: 06-25-2025 Urnls dip stick/tabl et rgnt non-auto w/o micrscp Christian Houston MD Work Phone: Start: 06-23-2025 Urnls dip stick/tabl et rgnt non-auto w/o micrscp Sheryl Bejarano APRN.CNM Work Phone: Start: 06-23-2025 Us preg uterus after 1st trimest 10/30 gestation Sheryl Bejarano APRN.CNM Work Phone: Start: 06-17-2025 Urnls dip stick/tabl et rgnt non-auto w/o micrscp Jamey Mcghee MD Work Phone: Start: 06-13-[address] Gonzalez Barreto MD Work Phone: Start: 06-13-2025 CT angiography of ch est with contrast Dr. Gonzalez Barreto MD Work Phone: Start: 06-10-2025 Urnls dip stick/tabl et rgnt non-auto w/o micrscp Sherylenrique Bejarano SANITATION WORKER CLEANING MACHINERY.CNM Work Phone: Start: 06-03-2025 Urnls dip stick/tabl et rgnt non-auto w/o micrscp Christian Houston MD Work Phone: Start: 06-03-2025 Us preg uterus after 1st trimest 10/30 gestation Karyn Aleman MD Work Phone: Start: 05-06-2025 Us preg uterus after 1st trimest 10/30 gestation Karyn Aleman MD Work Phone: Start: 04-28-2025 ALLERGEN SKIN TEST-PENICILLIN Keshia Kubicki SANITATION WORKER CLEANING MACHINERY.FAMILY MEDICINE CHAIR Work Phone: Start: 04-28-2025 Ingestion challenge test initial 120 minutes Keshia Kubicki SANITATION WORKER CLEANING MACHINERY.FAMILY MEDICINE CHAIR Work Phone: Start: 02-17-2025 Us preg uterus after 1st trimest 10/30 gestation Naila Escobar APRN.RETAIL MERCHANDISING COORDINATOR Work Phone: Start: 12-23-2024 Antibody screen NAILA Sandra BOBBY Comment on above: Order Comment: Speci men Type: BLOOD SPECIMEN Ordering Facility: [facility] Address: [address] [place] [address] Performed By: #### C RRSCN #### [facility] CLIA [id number] [address] [place] [id number] Start: 12-23-2024 Us preg uterus after 1st trimest 10/30 gestation Naila Escobar APRN.RETAIL MERCHANDISING COORDINATOR Work Phone: Start: 12-09-2024 Urnls dip stick/tabl et rgnt auto w/o microscopy Yonatan Patel MD Work Phone: Start: 11-25-2024 Us uterus l imited 1/ fetuses Naila Haury SANITATION WORKER CLEANING MACHINERY.RETAIL MERCHANDISING COORDINATOR Work Phone: Start: 10-18-2023 FOLLOW UP IN FAMILY MEDICINE MANDY PLASCENCIA Start: 12-14-2021 Microscopic observat ion [Identifier] in Cervix by Cyto stain Rosalina Muñiz MD Work Phone: Start: 08-24-2021 Adult depression scr eening assessment [facility] RETAIL MERCHANDISING COORDINATOR Work Phone: Start: 08-05-2020 Assay of thyroid stimulating hormone tsh Rosi Tickfaw Start: 08-05-2020 CBC W Auto Different ial panel - Blood Rosi Tickfaw Start: 08-05-2020 Ultrasound Pelvis Transabdominal With Transvaginal Rosi Rafi History of Foot Repair Rosi Tickfaw Comment on above: left foot cyst; Plan of Treatment Date Care Activity Detail Author Start: 2042 Zoster Vaccines (1 o f 2) Zoster Vaccines (1 of 2) [facility] Start: 04-21-2035 Urine microalbumin profile DTaP,Tdap,Td Vaccine (3 - Td or Tdap) [facility] Start: 08-23-2031 DTaP/Tdap/Td Vaccine s (3 - Td or Tdap) DTaP/Tdap/Td Vaccines (3 - Td or Tdap) [facility] Start: 08-23-2031 Tetanus vaccination Tetanus: Every 1 0yrs [facility] Start: 08-23-2031 Urine microalbumin profile DTaP,Tdap,Td Vaccine (2 - Td or Tdap) [facility] Start: 11-25-2029 Screening for malign ant neoplasm of cervix Cervical Cancer Screening [facility] Start: 07-07-2025 End: 07-07-2025 Follow-up encounter 07/07/2025 1:00 PM EDT [facility] MANAGEMENT [address] [place] [address] Yudi Ndiaye PA-C [address] [place] [address] 7 week follow-up BLOOD MANAGEMENT Comment on above: 7 week follow-up Start: 07-07-2025 End: 07-07-2025 Patient encounter procedure BLOOD MANAGEMENT Comment on above: Lab msg sent Delivered 07/01 Start: 07-04-2025 End: 10-03-2025 CBC W Auto Differential panel - Blood COMPLETE BLOOD COUNT AND DIFFERENTIAL Lab Routine Maternal iron deficiency anemia complicating , third trimester (HCC) Expected: 07/04/2025 (Approximate), Expires: 10/03/2025 [facility] Work Phone: Comment on above: Expected: 07/04/2025 (Approximate), Expires: 10/03/2025 Start: 07-04-2025 End: 10-03-2025 Cobalamin (Vitamin B12) [Mass/volume] in Serum or Plasma VITAMIN B12 Lab Routine Maternal iron deficiency anemia complicating , third trimester (HCC) Expected: 07/04/2025 (Approximate), Expires: 10/03/2025 [facility] Comment on above: Expected: 07/04/2025 (Approximate), Expires: 10/03/2025 Start: 07-04-2025 End: 10-03-2025 Ferritin [Mass/volume] in Serum or Plasma FERRITIN Lab Routine Maternal iron deficiency anemia complicating , third trimester (HCC) Expected: 07/04/2025 (Approximate), Expires: 10/03/2025 [facility] Comment on above: Expected: 07/04/2025 (Approximate), Expires: 10/03/2025 Start: 07-04-2025 End: 10-03-2025 Folate [Mass/volume] in Serum or Plasma FOLATE, SERUM Lab Routine Maternal iron deficiency anemia complicating , third trimester (HCC) Expected: 07/04/2025 (Approximate), Expires: 10/03/2025 [facility] Comment on above: Expected: 07/04/2025 (Approximate), Expires: 10/03/2025 Start: 07-04-2025 End: 10-03-2025 Iron and Iron binding capacity panel - Serum or Plasma IRON AND TIBC Lab Routine Maternal iron deficiency anemia complicating , third trimester (HCC) Expected: 07/04/2025 (Approximate), Expires: 10/03/2025 [facility] Comment on above: Expected: 07/04/2025 (Approximate), Expires: 10/03/2025 Start: 07-03-2025 Patient discharge [facility] Start: 07-03-2025 [facility] Start: 07-02-2025 Consultation [facility] Start: 07-01-2025 End: 07-02-2025 [facility] Start: 07-01-2025 Application of ice collar, cap or bag [facility] Start: 07-01-2025 Catheterization of vein [facility] Start: 07-01-2025 Introduction of urin summer catheter [facility] Start: 07-01-2025 Measuring intake and output [facility] Start: 07-01-2025 Notification of physician [facility] Start: 07-01-2025 Procedure discontinued [facility] Start: 07-01-2025 Provision of activit y privileges [facility] Start: 07-01-2025 Vital signs measurements [facility] Start: 07-01-2025 Documentation procedure [facility] Start: 07-01-2025 Admission procedure [facility] Start: 07-01-2025 Verification routine [facility] Start: 06-30-2025 Influenza vaccination [facility] Start: 06-25-2025 End: 06-25-2025 Patient encounter procedure 06/25/2025 11:10 AM EDT Routine Office Visit OB/Gynecology [address] [place] [address] Christian Contreras MD [address] [place] [address] OB-NST only OB/Gynecology Comment on above: OB-NST only Start: 06-23-2025 End: 06-23-2025 Patient encounter procedure Maternal Medicine Comment on above: Growth Growth/OB Start: 06-17-2025 End: 06-17-2025 Patient encounter procedure OB/Gynecology Comment on above: NST NST/OB Start: 06-13-2025 Patient discharge [facility] Start: 06-13-2025 Therapeutic prophylactic/dx injection subq/im THER/PROPH/DIAG INJ SC/IM [facility] Start: 06-13-2025 Nonstress test [facility] Start: 06-13-2025 Obstetric monitoring [facility] Start: 06-13-2025 Vital signs measurements [facility] Start: 06-13-2025 [facility] Start: 06-13-2025 Hospital admission, emergency, from emergency room, medical nature [facility] Start: 06-13-2025 [facility] Start: 06-10-2025 End: 06-10-2025 Patient encounter procedure OB/Gynecology Comment on above: NST NST/OB HEMORRHOID Start: 06-04-2025 End: 06-04-2025 ambulatory 06/04/2025 3:30 PM EDT [facility] H[facility]Oncology [address] [place] [address] 2ND Hematology/Oncology Comment on above: 2ND Start: 06-03-2025 End: 06-03-2025 Patient encounter procedure Maternal Medicine Comment on above: us OB Routine Growth US US/OB Routine Start: 06-02-2025 End: 06-02-2025 ambulatory 06/02/2025 10:30 AM EDT [facility] Hematology/Oncology [address] [place] [address] 2ND Hematology/Oncology Comment on above: 2ND Start: 05-29-2025 End: 05-29-2025 ambulatory 05/29/2025 3:30 PM EDT [facility] Hematology/Oncology [address] [place] [address] 2ND Hematology/Oncology Comment on above: 2ND Start: 05-27-2025 End: 05-27-2025 ambulatory 05/27/2025 10:30 AM EDT [facility] Hematology/Oncology [address] [place] [address] 2ND Hematology/Oncology Comment on above: 2ND Start: 05-20-2025 End: 05-20-2025 Patient encounter procedure 05/20/2025 10:40 AM EDT Routine Office Visit OB/Gynecology [address] [place] [address] Jamey Mcghee MD [address] [place] [address] OB OB/Gynecology Comment on above: OB Start: 05-07-2025 End: 05-07-2025 Patient encounter procedure 05/07/2025 9:50 AM EDT Routine Office Visit OB/Gynecology [address] [place] [address] Kerry Paniagua MD [address] [place] [address] US/OB OB/Gynecology Comment on above: US/OB Start: 05-06-2025 End: 05-06-2025 Patient encounter procedure Maternal Medicine Comment on above: US Growth US Start: 04-28-2025 End: 04-28-2025 Patient encounter procedure Allergy Comment on above: 30 weeks gestation o f ([facility]) [Z3A.20]; Supervision of high risk in 3rd trimester ([facility]) [O09.92]; Penicillin allergy [Z88.0] amox? Start: 04-22-2025 End: 07-22-2025 CBC panel - Blood by Automated count COMPLETE BLOOD COUNT Lab Routine Anemia complicating , first trimester ([facility]) Expected: 04/22/2025, Expires: 07/22/2025 [facility] Work Phone: Comment on above: Expected: 04/22/2025 , Expires: 07/22/2025 Start: 03-19-2025 End: 03-19-2025 Patient encounter procedure 03/19/2025 2:40 PM EDT Routine Office Visit OB/Gynecology [address] [place] [id number] Keyla Kay MD [address] [place] [id number] OB Routine OB/Gynecology Comment on above: OB Routine Start: 02-17-2025 End: 02-17-2025 Patient encounter procedure Maternal Medicine Comment on above: Anatomy Scan *Does n ot want to know gender OB Routine Start: 01-20-2025 End: 01-20-2025 Patient encounter procedure 01/20/2025 2:30 PM EDT Routine Office Visit OB/Gynecology [address] [place] [address] Sheryl Bejarano APRN.CNSonido [address] [place] [address] OB Routine OB/Gynecology Comment on above: OB Routine Start: 12-27-2024 End: 12-27-2024 Patient encounter procedure 12/27/2024 2:20 PM EST Routine Office Visit OB/Gynecology [address] [place] [address] Jamey Mcghee MD [address] [place] [address] ob 09/01 OB/Gynecology Comment on above: ob 09/01 Start: 12-23-2024 End: 12-23-2024 Patient encounter procedure Maternal Medicine Comment on above: Early OB Start: 12-16-2024 End: 12-16-2024 Patient encounter procedure 12/16/2024 3:15 PM EST Routine Office Visit OB/Gynecology [address] [place] [address] Sheryl Bejarano APRN.CNM [address] [place] [address] Pessay check/ OB OB/Gynecology Comment on above: Pessay check/ OB Start: 12-14-2024 Screening for malign ant neoplasm of cervix [facility] Start: 11-25-2024 End: 02-24-2025 ANEMIA REFLEX PANEL ANEMIA REFLEX PANEL Lab Routine 8 weeks gestation of Expected: 11/25/2024, Expires: 02/24/2025 [facility] Work Phone: Comment on above: Expected: 11/25/2024 , Expires: 02/24/2025 Start: 11-25-2024 End: 02-24-2025 CARRIER SCREEN, STANDARD CARRIER SCREEN, STANDARD Lab Routine 8 weeks gestation of Expected: 11/25/2024, Expires: 02/24/2025 [facility] Comment on above: Expected: 11/25/2024 , Expires: 02/24/2025 Start: 11-25-2024 End: 02-24-2025 Chromosome 21 trisomy [Presence] in Blood or Tissue by Cytogenetics [id number] PLUS Lab Routine 8 weeks gestation of Expected: 11/25/2024, Expires: 02/24/2025 [facility] Comment on above: Expected: 11/25/2024 , Expires: 02/24/2025 Start: 11-25-2024 End: 02-24-2025 Hemoglobin A1c in Blood HEMOGLOBIN A1C Lab Routine 8 weeks gestation of Expected: 11/25/2024, Expires: 02/24/2025 [facility] Comment on above: Expected: 11/25/2024 , Expires: 02/24/2025 Start: 11-25-2024 End: 02-24-2025 HEMOGLOBIN EVALUATION CASCADE HEMOGLOBIN EVALUATION CASCADE Lab Routine 8 weeks gestation of Expected: 11/25/2024, Expires: 02/24/2025 [facility] Comment on above: Expected: 11/25/2024 , Expires: 02/24/2025 Start: 11-25-2024 End: 02-24-2025 Hepatitis B virus surface Ag [Presence] in Serum HEPATITIS B SURFACE ANTIGEN Lab Routine 8 weeks gestation of Expected: 11/25/2024, Expires: 02/24/2025 [facility] Comment on above: Expected: 11/25/2024 , Expires: 02/24/2025 Start: 11-25-2024 End: 02-24-2025 Hepatitis C virus Ab [Presence] in Serum HEPATITIS C ANTIBODY IA WITH CONFIRMATION Lab Routine 8 weeks gestation of Expected: 11/25/2024, Expires: 02/24/2025 [facility] Comment on above: Expected: 11/25/2024 , Expires: 02/24/2025 Start: 11-25-2024 End: 02-24-2025 HIV 1+2 Ab [Presence] in Serum or Plasma by Immunoassay HIV 1/2 COMBO WITH REFLEX TO DIFFERENTIATION Lab Routine 8 weeks gestation of Expected: 11/25/2024, Expires: 02/24/2025 [facility] Comment on above: Expected: 11/25/2024 , Expires: 02/24/2025 Start: 11-25-2024 End: 11-25-2025 OBSTETRIC ULTRASOUND WHI OBSTETRIC ULTRASOUND WHI Anc Imaging Routine 8 weeks gestation of Expected: 11/25/2024, Expires: 11/25/2025 [facility] Comment on above: Expected: 11/25/2024 , Expires: 11/25/2025 Start: 11-25-2024 End: 02-24-2025 RUBELLA IGG ANTIBODY RUBELLA IGG ANTIBODY Lab Routine 8 weeks gestation of Expected: 11/25/2024, Expires: 02/24/2025 [facility] Comment on above: Expected: 11/25/2024 , Expires: 02/24/2025 Start: 11-25-2024 End: 02-24-2025 SYPHILIS TREPONEMAL W/REFLEX SYPHILIS TREPONEMAL W/REFLEX Lab Routine 8 weeks gestation of Expected: 11/25/2024, Expires: 02/24/2025 [facility] Comment on above: Expected: 11/25/2024 , Expires: 02/24/2025 Start: 11-25-2024 End: 02-24-2025 TYPE + SCREEN TYPE + SCREEN Blood Bank Routine 8 weeks gestation of Expected: 11/25/2024, Expires: 02/24/2025 [facility] Comment on above: Expected: 11/25/2024 , Expires: 02/24/2025 Start: 11-25-2024 End: 11-25-2024 Patient encounter procedure 11/25/2024 8:15 AM EST Initial Office Visit OB/Gynecology [address] [place] [address] Amparo Hager APRN.RETAIL MERCHANDISING COORDINATOR [address] [place] [address] ob 09/01 OB/Gynecology Comment on above: ob 09/01 Start: 06-30-2024 Covid-19 Vaccine () Covid-19 Vaccine () [facility] Start: 06-30-2024 COVID-19 Vaccine () COVID-19 Vaccine () [facility] Start: 06-30-2024 Covid-19 Vaccine ( season) Covid-19 Vaccine ( season) [facility] Start: 06-30-2024 Influenza vaccination Influenza Vacc ine (#1) [facility] Start: 11-20-2023 End: 11-20-2023 Patient encounter procedure 11/20/2023 9:30 AM EST Office Visit [facility] [address] [place] [address] Mandy Plascencia PA-C [address] [facility] [place] [address] [facility] Start: 11-15-2023 COVID-19 Vaccine (4 - Moderna series) COVID-19 Vaccine (4 - Moderna series) [facility] Start: 10-18-2023 End: 10-18-2023 Patient encounter procedure 10/18/2023 7:50 AM EST Office Visit [facility] [address] [place] [address] Mandy Plascencia PA-C [address] [facility] [place] [address] [facility] Start: 06-30-2023 Influenza vaccination Sequenti al Influenza Vaccine (Season Ended) [facility] Start: 04-18-2023 End: 04-18-2023 Patient encounter procedure [facility] Start: 02-09-2023 End: 11-11-2023 Iron measurement Iron Study with Ferritin Lab Routine Iron deficiency anemia, unspecified iron deficiency anemia type Expected: 02/09/2023, Expires: 11/11/2023 [facility] Work Phone: Comment on above: Expected: 02/09/2023 , Expires: 11/11/2023 Start: 02-07-2023 COVID-19 Vaccine (4 - Moderna series) COVID-19 Vaccine (4 - Moderna series) [facility] Start: 01-25-2023 End: 01-25-2023 Patient encounter procedure 01/25/2023 Office Visit Primary Care Rosalina Muñiz MD [address] [address] [facility] Start: 01-09-2023 End: 01-09-2023 Patient encounter procedure 01/09/2023 Office Visit Primary Care Rosalina Muñiz [place] [address] [place] [address] [facility] Start: 12-14-2022 History and physical examination, annual for health maintenance Wellness Visit [facility] Start: 12-12-2022 End: 12-12-2022 Patient encounter procedure 12/12/2022 Office Visit Primary Care Rosalina Muñiz MD [address] [address] [facility] Start: 11-24-2022 End: 11-24-2022 Nutrition therapy 11/24/2022 Nutrition Nutrition Rosalina Muñiz MD [address] [address] [facility] Start: 11-17-2022 End: 11-17-2022 Clinical Support 11/17/2022 Clinical Support Primary Care [facility] Start: 08-24-2022 Depression screening using PHQ-9 (Patient Health Questionnaire 9) score Depression Screening (PHQ-2/9) [facility] Start: 06-30-2022 Influenza vaccination Sequenti al Influenza Vaccine (#1) [facility] Start: 11-05-2021 COVID-19 Vaccine (4 - Booster for Moderna series) COVID-19 Vaccine (4 - Booster for Moderna series) [facility] Start: 08-10-2020 Ultrasound Pel vis Transabdominal With Transvaginal [facility] Work Phone: Start: 2019 HPV Vaccine (1 - 3-d ose SCDM series) HPV Vaccine (1 - 3-dose SCDM series) [facility] Start: 06-30-2018 Influenza vaccination INFLUENZA VACC INE (#1) [facility] Work Phone: Start: 2013 Screening for malign ant neoplasm of cervix [facility] Start: 2011 Hepatitis B Vaccine (1 of 3 - 19+ 3-dose series) Hepatitis B Vaccine (1 of 3 - 19+ 3-dose series) [facility] Start: 2011 Hepatitis B Vaccines (1 of 3 - 19+ 3-dose series) Hepatitis B Vaccines (1 of 3 - 19+ 3-dose series) [facility] Start: 2011 Pneumococcal Vaccine : Pediatrics and At-Risk Adult Patients (1 of 2 - PCV) Pneumococcal Vaccine: Pediatrics and At-Risk Adult Patients (1 of 2 - PCV) [facility] Start: 2011 Third diphtheria, tetanus and acellular pertussis (DTaP) vaccination TDAP (ADULT) [facility] Work Phone: Start: 2011 Urine microalbumin profile DTaP,Tdap,Td Vaccine (1 - Tdap) [facility] Start: 2010 Annual PCP Team [employer] mathew Disease Visit Annual PCP Team Chronic Disease Visit [facility] Start: 2010 Anxiety Screening Anxiety Screening [facility] Start: 2010 Depression Screening Depression Scre ening [facility] Start: 2010 Hepatitis C screening Hepatitis C Sc reening [facility] Start: 2010 HIV screening HIV Screening [facility] Start: 2010 Spirometry Spirometry [facility] Start: 2010 Tetanus vaccination TETANUS [place] [facility] Work Phone: Start: 2008 Screening for Chlamy arelis trachomatis CHLAMYDIA SCREEN [facility] Work Phone: Start: 2007 HIV screening HIV Screening [facility] Start: 2005 HIV screening HIV SCREENING DISCUSSION [facility] Work Phone: Start: 2005 Varicella vaccination Varicell a Vaccines (1 of 2 - 13+ 2-dose series) [facility] Start: 2004 Depression screening using PHQ-9 (Patient Health Questionnaire 9) score Depression Screening (PHQ-2/9) [facility] Start: 2003 Vaccination for griffin n papillomavirus [facility] Work Phone: Start: 1995 History and physical examination, annual for health maintenance Wellness Visit [facility] Start: 1993 MMR Vaccines (1 of 1 - Standard series) MMR Vaccines (1 of 1 - Standard series) [facility] Start: 1993 Varicella vaccination Varicell a Vaccines (1 of 2 - 2-dose childhood series) [facility] Start: 1992 Hepatitis B Vaccines (1 of 3 - 3-dose series) Hepatitis B Vaccines (1 of 3 - 3-dose series) [facility] Start: 1992 HIV screening HIV Screening [facility] Start: 1992 Lipid panel Lipid Panel [facility] Start: 1992 Screening for malign ant neoplasm of cervix Pap Smear [facility] Start: 1992 Yearly Adult Physical Yearly Adult P hysical [facility] Bacteria identified in Urine by Culture BACTERIAL CULTURE, URINE Microbiology Routine 8 weeks gestation of 11/25/2024 9:58 AM [facility] Bacteria identified in Urine by Culture BACTERIAL CULTURE, URINE Microbiology Routine Difficulty in urination 12/09/2024 1:[address] [facility] Work Phone: Chlamydia trachomatis+Neisseria gonorrhoeae DNA [Presence] in Unspecified specimen by SLAVA with probe detection GONORRHEA/CHLAMYDIA NAAT Lab Routine 8 weeks gestation of 11/25/2024 9:58 AM [facility] End: 08-23-2022 Complete blood count with white cell differential, manual CBC and Differential Lab Routine Obesity (BMI 30-39.9) 1 Occurrences starting 08/23/2021 until 08/23/2022 [facility] Work Phone: Comment on above: 1 Occurrences starti ng 08/23/2021 until 08/23/2022 End: 08-23-2022 Comprehensive metabolic 2000 panel - Serum or Plasma Comprehensive Metabolic Panel Lab Routine Obesity (BMI 30-39.9) 1 Occurrences starting 08/23/2021 until 08/23/2022 [facility] Comment on above: 1 Occurrences starti ng 08/23/2021 until 08/23/2022 Creatinine [Mass/volume] in Urine collected for unspecified duration [facility] Erythrocyte mean corpuscular volume determination [facility] Erythrocyte mean corpuscular volume determination [facility] End: 07-16-2025 nonstress test NON-STRESS TEST Procedures Routine Other obesity affecting in third trimester ([facility]) Polyhydramnios in third trimester complication, single or unspecified fetus ([facility]) Once per week for 8 Occurrences starting 06/03/2025 until 07/16/2025 [facility] Work Phone: Comment on above: Once per week for 8 Occurrences starting 06/03/2025 until 07/16/2025 Hematocrit [Volume Fraction] of Blood [facility] Hematocrit [Volume Fraction] of Blood [facility] Hemoglobin [Mass/volume] in Blood [facility] Hemoglobin [Mass/volume] in Blood [facility] Leukocytes [#/volume ] in Blood [facility] Leukocytes [#/volume ] in Blood [facility] End: 08-23-2022 Lipid 1996 panel - Serum or Plasma Lipid Panel Lab Routine Obesity (BMI 30-39.9) 1 Occurrences starting 08/23/2021 until 08/23/2022 [facility] Comment on above: 1 Occurrences starti ng 08/23/2021 until 08/23/2022 Mean corpuscular hemoglobin concentration determination [facility] Mean corpuscular hemoglobin concentration determination [facility] Mean corpuscular hemoglobin determination [facility] Mean corpuscular hemoglobin determination [facility] Neutrophil count [facility] Neutrophil count [facility] Neutrophil percent differential count [facility] Neutrophil percent differential count [facility] End: 07-07-2025 OBSTETRIC ULTRASOUND WHI OBSTETRIC ULTRASOUND WHI Anc Imaging Routine 29 weeks gestation of ([facility]) Supervision of high risk in second trimester ([facility]) Once per month for 2 Occurrences starting 04/21/2025 until 07/07/2025 [facility] Work Phone: Comment on above: Once per month for 2 Occurrences starting 04/21/2025 until 07/07/2025 End: 05-25-2026 OBSTETRIC ULTRASOUND WHI OBSTETRIC ULTRASOUND WHI Anc Imaging Routine 36 weeks gestation of ([facility]) Supervision of high risk in third trimester ([facility]) Polyhydramnios in third trimester complication, single or unspecified fetus ([facility]) Once per month for 3 Occurrences starting 06/10/2025 until 05/25/2026 [facility] Work Phone: Comment on above: Once per month for 3 Occurrences starting 06/10/2025 until 05/25/2026 PAP TEST PAP TEST Lab Liudmila wellere 8 weeks gestation of Screening for cervical cancer Screening for HPV (human papillomavirus) 11/25/2024 9:58 AM EST [facility] Patient Education [facility] Work Phone: Platelets [#/volume] in Blood [facility] Platelets [#/volume] in Blood [facility] Protein [Mass/time] in 24 hour Urine PROTEIN, 24 HOUR URINE Lab Routine Proteinuria affecting in third trimester ([facility]) Ordered: 06/13/2025 [facility] Work Phone: Comment on above: Ordered: 06/13/2025 Protein [Mass/volume ] in Urine [facility] Protein/Creatinine [Mass Ratio] in Urine [facility] Red blood cell count [facility] Red blood cell count [facility] Red cell distributio n width determination [facility] Red cell distributio n width determination [facility] ROUTINE, GR OUP B STREPTOCOCCUS BY PCR ROUTINE, GROUP B STREPTOCOCCUS BY PCR Microbiology Routine 36 weeks gestation of ([facility]) 06/10/2025 12:25 PM EDT [facility] End: 11-05-2022 SARS-CoV-2 (COVID-19) RNA [Presence] in Respiratory specimen by SLAVA with probe detection COVID-19/Influenza A,B Molecular Microbiology Routine Flu-like symptoms 1 Occurrences starting 11/05/2021 until 11/05/2022 [facility] Work Phone: Comment on above: 1 Occurrences starti ng 11/05/2021 until 11/05/2022 Troponin T.cardiac [Mass/volume] in Serum or Plasma by High sensitivity method [facility] End: 10-20-2024 XR Chest 2 Views [facility] Service Area Work Phone: Comment on above: Once for 1 Occurrenc es starting 10/20/2024 until 10/20/2024 NEGATED: Highlighted row has been ruled out! Planned Goals not documented [facility] Work Phone: Immunizations Immunization Date Immunization Notes Care Provider [facility] 04-21-2025 tetanus toxoid, redu rah diphtheria toxoid, and acellular pertussis vaccine, adsorbed Karyn Aleman MD Work Phone: [facility] 07-13-2023 Influenza, injectabl e, Madin [place] [facility], preservative free, quadrivalent Keyla Kay MD Work Phone: [facility] 07-13-2023 influenza virus vaccine, unspecified formulation [facility] Work Phone: 08-23-2021 diphtheria, tetanus toxoids and acellular pertussis vaccine, unspecified formulation Rosalina Muñiz MD Work Phone: [facility] 08-23-2021 Seasonal, quadrivale nt, recombinant, injectable influenza vaccine, preservative free Rosalina Muñiz MD Work Phone: [facility] 08-23-2021 tetanus toxoid, redu rah diphtheria toxoid, and acellular pertussis vaccine, adsorbed Rosalina Muñiz MD Work Phone: [facility] 08-23-2021 flu vac qv 2020,18yr up,rc,PF, (FLUBLOK QUAD) syringe Rosalina Muñiz MD Work Phone: [facility] Payers Date Payer Category Payer Self-pay 2023 Managed Care (Private) [facility] [id number] 2023 Private Health Insurance [id number] 2023 Unknown [id number] 2021 Unknown ANTHEM ANTHEM BLUE/PREF/HMO/PPO [id number] 2021-Present [phone] [address] [place] [address] [id number] 2021 Unknown [id number] 2018 Unknown 2018 Unknown [id number] 1992 Unknown [id number] [id number] .900 1992 Unknown [id number] [id number] .356 1992 Unknown [id number] 20.1.569612.3.579.2 .356 1992 Unknown [id number] 20.1.740777.3.579.2 .356 1992 Unknown [id number] 2.840.1.767753.3.579.2 .903 1992 Unknown [id number] 2.0.1.875950.3.579.2 .903 1992 Unknown [id number] 2.840.1.081881.3.579.2 .903 1992 Unknown [id number] 2.840.1.467818.3.579.2 .903 1992 Unknown [id number] 2.16.840.1.952348.3.579.2 .903 1992 Unknown [id number] 2.16.840.1.683694.3.579.2 .903 1992 Unknown [id number] 2.16.840.1.499952.3.579.2 .903 1992 Unknown [id number] 2.16.840.1.436174.3.579.2 .903 1992 Unknown [id number] 2.16.840.1.816669.3.579.2 .1244 1992 Unknown [id number] 2.16.840.1.503795.3.579.2 .1244 1992 Unknown [id number] 2.16.840.1.416692.3.579.2 .1244 1992 Unknown [id number] 2.16.840.1.632574.3.579.2 .1243 Unknown [id number] 2.16.840.1.091938.3.579.2 .462 Unknown [id number] 2.16.840.1.048941.3.579.2 .462 Unknown [id number] 2.16.840.1.862957.3.579.2 .462 Unknown [id number] 2.16.840.1.554743.3.579.2 .462 Unknown [id number] 2.16.840.1.344774.3.579.2 .462 Social History Date Type Detail Facility Tobacco smoking status NHIS Unknown if ever smoked [facility] Work Phone: Start: 1990 Sex Assigned At Not on file [facility] Work Phone: Start: 12-28-2022 End: 12-16-2024 Never smoker Never smoker [address] Work Phone: Tobacco smoking consumption unknown [facility] Start: 08-23-2021 End: 11-25-2024 Tobacco smoking status NHIS Never smoked tobacco [facility] Start: 08-23-2021 End: 11-25-2024 Tobacco use and exposure Smokeless tobacco non-user [facility] Start: 08-23-2021 End: 05-06-2025 Alcohol intake Lifetime non-drinker (finding) [facility] Start: 11-10-2021 End: 10-20-2024 Exposure to SARS-CoV-2 (event) Not sure [facility] Start: 10-27-2023 End: 11-06-2023 Exposure to SARS-CoV-2 (event) Unable to assess [facility] Start: 12-02-2022 End: 12-12-2022 Exposure to SARS-CoV-2 (event) Yes [facility] Start: 12-28-2022 End: 12-16-2024 Tobacco use panel [facility] Start: 11-07-2024 Adult Depression Screening Assessment 0 [facility] Start: 08-24-2021 Gender identity Identifies as female gender (finding) [facility] Start: 08-24-2021 Sexual orientation Heterosexual (fin ding) [facility] Start: 09-19-2023 End: 11-06-2023 Alcohol intake Ex-drinker (finding) [facility] Work Phone: Start: 10-14-2024 [facility] Start: 1990 Sex assigned at Female [facility] NEGATED: Highlighted row - - [facility] Work Phone: Medical Equipment Procedure Code Equipment Code Equipment Origin al Text Equipment Identifier Dates Use once weekly . [id number] Start: 02-08-2023 Use with blood glucose test four times a day. Insulin Dep? No [id number] Start: 06-04-2025 Use with blood glucose test four times a day. Insulin Dep? No [id number] Start: 06-04-2025 Goals Date Patient Goal Desired Activity /State Functional Status Date Assessment Result Facility NEGATED: Highlighted row Functional performance Functional status health issues are not documented Disease [facility] Work Phone: Mental Status Date Assessment Result Facility NEGATED: Highlighted row Cognitive function [Interpretation] Cognitive status health issues are not documented [facility]: Clinical Notes 08-23-2021 to 09-02-2025 Note Date & Type Note Facility 09-02-2025 Note HNO ID: [id number] Author: YUDI NDIAYE PA-C Service: ? Author Type: Physician Wealth Management Manager Type: Progress Notes Filed: 09/02/2025 14:44 Note Text: [facility] DEPARTMENT OF PATIENT BLOOD MANAGEMENT FOLLOW-UP DISTANCE HEALTH VISIT I have communicated my name and active licensure. The patient's identity and physical location were verified at the time of this visit. Patient or their legal healthcare sales representative has been informed of the risks and benefits of -- and alternatives to -- treatment through a remote evaluation and consents to proceed with the evaluation remotely. This is a virtual visit using [employer] Video Visit. It required patient-provider interaction for the medical decision making as documented below. Persons Present: patient PATIENT NAME: Federica Figueroa DATE OF SERVICE: 09/02/25 REFERRING PROVIDER: Jamey Mcghee MD Federica Figueroa is a 35 year old female who was referred to Blood Management for evaluation and management of anemia in . Subjective Last visit subjective for reference: CHIEF COMPLAINT: I have always been anemic, but is worse during . HISTORY OF THE PRESENT ILLNESS: Federica Figueroa is a 35 year old female who has a past medical history of atopic eczema, depression, and PCOS and was referred to Blood Management for evaluation and management of anemia in and iron deficiency anemia. 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 Patient with oral iron intolerance; worsening constipation and nausea from . Patient denies history of iron infusions or blood transfusions. Patient denies EtOH use. Lifetime nonsmoker. Lives in [place], [place]. 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 Independent with ADLs. Interval History INTERVAL HPI: Federica Figueroa presents for follow-up of anemia and lab review. Patient was last seen on 05/20/25 for initial visit, at which time labs revealed iron deficiency anemia. Patient completed recommended treatment of Venofer 200 mg x 5 doses from 05/22/25-06/04/25 and tolerated these well without noticeable AE. Patient's anemia suspected to be secondary to and history of menorrhagia. Previously reported fatigue, poor sleep, pain from pubic symphysis dysfunction which was limiting activity, CADET, lightheadedness with exertion, difficulty concentrating, chronic migraines, restless legs, nausea and constipation from oral supplements, reflux requiring BID Pepcid. Symptoms improved following treatment. Diagnosed with PE about 3 weeks before delivery. On Lovenox BID; with good compliance but poor tolerance; pain with injection and resulting bruising and hematomas. She has appt with hematology appt in about a week. No personal or family history of VTE. Decreased mobility during with pubic symphysis pain. Also reports numbness in fingers, tongue, lips and feet. MRI Brain scheduled 09/15/25. Medical/Surgical History: PAST MEDICAL HISTORY Diagnosis Date Anxiety Atopic eczema Depression Group beta Strep positive 06/12/2025 June 12, 2025 Plan for Penicillin during labor. Naila Escobar APRN.RETAIL MERCHANDISING COORDINATOR History of depression 11/25/2024 November 25, 2024 Coping well at this time. PHQ2/TRINO negative To update throughout . Naila Escobar APRN.RETAIL MERCHANDISING COORDINATOR PCOS (polycystic ovarian syndrome) Penicillin allergy 11/25/2024 April 30, 2025 No pcn allergy, had testing- no IgE rxn. Ok to use pcns. See allergy consult from March 2025. Keyla Kay MD November 25, 2024 Consider Penicillin allergy consult. Naila Escobar APRN.RETAIL MERCHANDISING COORDINATOR Pulmonary embolism affecting (HCC) 06/17/2025 06/17/25 - on lovenox 100mg bid - Jamey Mcghee MD No past surgical history on file. CURRENT MEDICATIONS: Current Outpatient Medications Medication Instructions albuterol HFA (PROVENTIL HFA, VENTOLIN HFA) 90 mcg/actuation inhaler 2-4 puffs, INHALATION, EVERY 2 HOURS NEEDED ALBUTEROL INHALATION 2 inhalations, NEEDED (more content not included)... [facility] 08-19-2025 Note HNO ID: [id number] Author: MEAGHAN ESCOBAR APRN.DENNIS Service: ? Author Type: Nurse Practitioner Type: Progress Notes Filed: 08/19/2025 14:57 Note Text: CC: Patient presents with: Establish Care: physical Recording using [employer] software for draft documentation of the visit was discussed with the patient/authorized healthcare sales representative; all questions welcomed and answered. Patient/authorized healthcare sales representative agreed to proceed HPI The patient is a 35-year-old female with a history of pulmonary embolism, anxiety, migraines, and PCOS, presenting to establish care along with concerns about numbness/tingling Paresthesia: - Numbness in fingers x 3 weeks; tongue and lips x 2 weeks - More frequent in fingers; less frequent in lips and tongue. - No specific time of day noted; more noticeable when driving. - Denies associated slurred speech, facial drooping, blurred vision, lightheadedness, dizziness, syncope, confusion, feeling faint, balance, or coordination issues. Pulmonary Embolism: - occurred during third trimester of - Currently on Lovenox BID. - Referral to hematology for management. Anxiety: - Well-managed; currently seeing a counselor. Migraines: - Chronic migraines occurring more than half the days of the week. - Managed holistically with hydration, rest, and pressure techniques. - Denies use of medications due to previous ineffectiveness and side effects. Iron Deficiency Anemia: - History of iron deficiency anemia, worsened during . - Undergoing lab work and follow-up appointment on September 02. - Received iron infusions during . PCOS: - Contributing to weight management challenges. Weight Management: - Struggles with weight loss, attributed to PCOS and previous episodes of depression. - Previously tried semaglutide and two other weight loss medications; discontinued due to side effects. - Currently pursuing a natural approach to weight management. Review of Systems Constitutional: Negative for chills, diaphoresis, fatigue, fever and unexpected weight change. Respiratory: Negative for cough, shortness of breath and wheezing. Cardiovascular: Negative for chest pain, palpitations and leg swelling. Neurological: Negative for tremors and weakness. PAST MEDICAL HISTORY Diagnosis Date Anxiety Atopic eczema Depression Group beta Strep positive 06/12/2025 June 12, 2025 Plan for Penicillin during labor. Naila Escobar APRN.RETAIL MERCHANDISING COORDINATOR History of depression 11/25/2024 November 25, 2024 Coping well at this time. PHQ2/TRINO negative To update throughout . Naila Escobar APRN.RETAIL MERCHANDISING COORDINATOR PCOS (polycystic ovarian syndrome) Penicillin allergy 11/25/2024 April 30, 2025 No pcn allergy, had testing- no IgE rxn. Ok to use pcns. See allergy consult from March 2025. Keyla Kay MD November 25, 2024 Consider Penicillin allergy consult. Naila Escobar APRN.RETAIL MERCHANDISING COORDINATOR Pulmonary embolism affecting (HCC) 06/17/2025 06/17/25 - on lovenox 100mg bid - Jamey Mcghee MD History reviewed. No pertinent surgical history. ALLERGIES Patient has no known allergies. MEDICATIONS albuterol HFA (PROVENTIL HFA, VENTOLIN HFA) 90 mcg/actuation inhaler Inhale 2-4 puffs as instructed every 2 hours as needed for wheezing/shortness of breath. enoxaparin (LOVENOX) 80 mg/0.8 mL Inject 0.8 mL subcutaneously every 12 hours. PNV no.95/ferrous fum/folic ac ( ORAL) Take 2 Pieces of gum by mouth once daily. ALBUTEROL INHALATION Inhale 2 Inhalations as instructed as needed (WHEEZING, SHORTNESS OF BREATH). FAMILY HISTORY Problem Relation Age of Onset Hypertension Mother Asthma Mother Allergic Rhinitis Mother No Known Problems Sister Alzheimer's Disease Maternal Grandmother SOCIAL HISTORY[1] BP 124/78 Pulse 102 Resp 12 Ht 154.5 cm (5' 0.83) Wt 86.7 kg (191 lb 2.2 oz) LMP 09/01/2024 (Exact Date) SpO2 97% BMI 36.32 kg/m? Physical Exam Vitals reviewed. Constitutional: Appearance: Normal appearance. Cardiovascular: Rate and Rhythm: Normal rate and regular rhythm. Heart sounds: Normal heart sounds. Pulmonary: Effort: Pulmonary effort is normal. Breath sounds: Normal breath sounds. No wheezing, rhonchi or rales. Skin: General: Skin is warm and dry. Neurological: General: No focal deficit present. Mental Status: She is alert and oriented to person, place, and time. Cranial Nerves: Cranial nerves 2-12 are intact. Sensory: Sensation is intact. Motor: Motor function is intact. Coordination: Coordination is intact. Gait: Gait is intact. Psychiatric: Mood and Affect: Mood normal. Assessment/Plan 1. Chronic migraine without aura without status migrainosus, not intractable (G43.709): Patient experiences weekly migraines, more than half the days of each week; previously trialed various medications without relief. Declines pharmacological therapy at this time while but remains open to future options. (more content not included)... [facility] 08-14-2025 Note HNO ID: [id number] Author: ELEANOR GOMEZ APRN.CNM Service: ? Author Type: Educational Aid Type: Progress Notes Filed: 08/14/2025 14:56 Note Text: Glass Mold Repairer offered: Patient declines. VISIT Federica Figueroa is a 35 year old year old here for visit. Delivery Summary: . Dr. Kay 07/01/2025 Female 7lbs, 4 ozs Second degree vaginal tear. ROS/ Recovery: Feeding: Breast feeding problems: following up with business intelligence consultant due to possible tongue tie of baby. Gaining weight - no concerns with grader meat Menses since delivery: light flow Menstrual pattern prior to : Irregular periods [place] since delivery: Not resumed Depression: denies symptoms of depression. OB Depression and Anxiety Screening- This Encounter Feeling down, depressed, or hopeless: Not at all Little interest or pleasure in doing things: Not at all Feeling nervous, anxious, or on edge Not at all Not being able to stop or control worrying Not at all Anxiety Pre-Screening Total (If >/= 3 additional questions will be reviewed) 0 Emotional support: Yes Bowel symptoms: Negative for abdominal discomfort, blood in stools or black stools and change in bowel habits Abdomen: N/A Bladder symptoms: incontinence Other issues: discuss referral for blood clot Last Pap: 2024 normal HPV: negative PAST MEDICAL HISTORY Diagnosis Date Atopic eczema Depression PCOS (polycystic ovarian syndrome) No past surgical history on file. FAMILY HISTORY Problem Relation Age of Onset Hypertension Mother Asthma Mother Allergic Rhinitis Mother No Known Problems Sister Alzheimer's Disease Maternal Grandmother Social History Tobacco Use Smoking status: Never Smokeless tobacco: Never Vaping Use Vaping status: Never Used Substance Use Topics Alcohol use: Never Drug use: Never PHYSICAL EXAMINATION: SENSITIVE EXAM: The sensitive examination was discussed with the Patient or Patient's Authorized Payable Representative. As applicable, any other physician, advance practice provider, medical student, or other health professional student that will be observing or involved in the sensitive examination for educational or training purposes was discussed with the Patient or Authorized Payable Representative. The Patient or Authorized Payable Representative has agreed to proceed with the sensitive examination. (Sensitive examination includes inspection and/or palpation of the breasts, pelvis, prostate and anorectal regions). BP 110/78 Wt 191 lb (86.6kg) LMP 09/01/2024 GENERAL: pleasant, female in no apparent distress HEENT: Normocephalic and atraumatic NECK: Supple and full range of motion DERMATOLOGY: Normal and without lesions BREAST: soft, non-tender, symmetric, no dominant mass, normal nipple-areolar complex, no lymphadenopathy, and no nipple discharge CHEST: Normal inspiratory effort ABDOMEN: soft, non-tender, and no masses. INCISION: N/A PELVIC: external genitalia normal, normal Bartholin's glands, urethra, Brenton's glands, no vulvar lesions, no cervical lesions, good vaginal support, physiologic discharge present, normal appearing perineal body and perianal region, Laceration well approximated BIMANUAL: uterus normal size, shape and consistency, no adnexal masses, non-tender, and no cervical motion tenderness NEURO: alert and oriented x3,exam grossly non-focal EXTREMITIES: normal ASSESSMENT AND PLAN: 35 year old status post with normal course. Contraception plan: condoms Follow up: Referred back to PCP for care, RTC for annual exams and PRN Continue LOVENOX 80 mg SQ every day- scheduled with hematology for follow up and plan of discontinuation Eleanor Gomez APRN.[facility] 07-17-2025 Note HNO ID: [id number] Author: AMPARO HAGER APRN.DENNIS Service: ? Author Type: Nurse Practitioner Type: Progress Notes Filed: 07/17/2025 11:42 Note Text: EARLY VISIT Federica Figueroa is a 35 year old here for 2 week visit. Delivery Summary: . Dr. Kay 07/01/2025 Female 7lbs, 4 ozs Second degree vaginal tear. ROS: General: Denies any fever or chills Hypertension Screening: Headache? Hx chronic migriane Visual Changes? No Epigastric Pain? No Increased Swelling? No Taking any BP medications at home? No If applicable, monitoring BP at home? (If Yes, include results) Yes / home readings 90/70 Mood: normal Depression: denies symptoms of depression. OB Depression and Anxiety Screening- This Encounter None Feeding: Breast feeding problems: None Bladder: No dysuria, gross hematuria, urinary frequency, urinary urgency, or incontinence Bowel symptoms: Negative for abdominal discomfort, blood in stools or black stools and change in bowel habits Abdomen: N/A Bleeding: intermittent clots Bottom and Perineum: Sore Sleep: no sleep concerns, feels rested [place] since delivery: Not resumed Emotional support: Yes Exercise: N/A Other issues: None SENSITIVE EXAM: Sensitive exam not performed. PHYSICAL EXAMINATION: LMP 09/01/2024 (Exact Date) General: pleasant,female in no apparent distress, AANDO x 3. Skin warm and intact. Breast: Deferred Abdomen: Deferred /Incision: N/A Pelvic: Deferred Bimanual: Deferred ASSESSMENT AND PLAN: 35 year old status post with course complicated by PE. Contraception plan: unsure . Reinforced 6-week pelvic rest. Encouraged condom usage should patient deviate. Education: resources provided - see MA/RN note Finish out Lovenox 100 mg, then start 80 mg Follow up: Return to Clinic for 6 week visit and as needed Amparo Hager APRN.DENNIS [facility] 07-03-2025 Discharge summary Note Date/Time July 03, 2025 9:10am [facility] Medical Records Department [address] [place] [address] Discharge Summary 07/03/25905 MR#: [id number] Acct: [id number] Name: FEDERICA FIGUEROA ANGELIC Rep #:[id number] : 1990 35 From: Eleanor Gomez CNM PCP: Care Physician,No Primary Status :ADM IN Location: [id number] Providers Date of Admission: 07/01/25 Primary Care Physician: No Primary Care Phys Reason For Visit: VAG Diagnosis Discharge Diagnosis (1) Single live : Status: Acute Code(s): Z37.0 - Single live (2) (spontaneous vaginal delivery): Status: Acute Code(s): O80 - Encounter for full-term uncomplicated delivery (3) Obesity, Class II, BMI 35-39.9, isolated: Status: Acute Code(s): E66.812 - Obesity, class 2 (4) Pulmonary embolus: Status: Acute Code(s): I26.99 - Other pulmonary embolism without acute cor pulmonale Qualifiers: Pulmonary embolism type: other Chronicity: acute Acute cor pulmonale presence: without acute cor pulmonale Qualified Code(s): I26.99 - Other pulmonary embolism without acute cor pulmonale (5) Anemia: Status: Acute Code(s): D64.9 - Anemia, unspecified Plan PPD 2 support Continue Lovenox 100 mg SQ D/C home with follow up in office next week Medications at Discharge Home Medications famotidine 20 mg tablet 20 mg PO BID GERD 06/09/25 enoxaparin 100 mg subcut BID PE 07/01/25 acetaminophen 500 mg tablet 1,000 mg (2 x 500 mg) PO Q6H PRN PRN Pain 1-10 Or Fever #0 tabs 07/03/25 Hospital Course Operations None Procedures None Summary of Care Provided Minutes Spent on Discharge: 15 Hospital Course: Patient had vaginal delivery. Hospital course was uneventful. Physical Exam Narrative Patient seen at bedside. Denies pain. Ambulating and voiding without difficulty.Lochia decreased. Desires discharge home today. Const alert and oriented x3 General Appearance: Negative for in distress HEENT normocephalic Eyes General Eye: normal appearance of both eyes Neck General: normal visual inspection Chest Chest: symmetrical chest wall rise Resp normal respiratory effort and normal air movement Effort and Inspection: symmetric chest movement; Negative for tachypneic Auscultation: clear to auscultation bilaterally Cardio regular rate and regular rhythm Peripheral Pulses: pulses 2+ throughout GI normal to inspection, nondistended, normoactive bowel sounds Narrative: Ice to perineum OB / External & Speculum: vaginal bleeding and other Lochia decreasing Uterus Palpation: uterus fundus firm (Below U) Extremity normal to inspection, full ROM and normal capillary refill Skin no rashes or lesions noted Neuro oriented x3, CN's II-XII intact bilaterally and gait normal Psych mental status grossly normal, thought process normal and activity/motor behaviornormal Weight / BMI Weight Weight: 202 lb Body Mass Index (BMI) 36.9 ABG / Lab / Microbiology Data 07/02/25 05:35 D/C Instructions Discharge Activity: Return to Normal Activity, No Restrictions, May Drive, May Shower and May Take a Tub Bath (Warm water only. No bath salts, soaps, bubbles) May resume sexual activity in: 6-8 weeks Weight Bearing Status: Weight bearing as tolerated Call your doctor if you observe: Fever of 101 or Higher, Inability to urinate, Using more than 1 pad per hour, Shortness of breath, Dizziness, Chest pain, Calfdiscomfort and Uncontrolled pain DC O2, CPAP, BIPAP Needs Home O2 Discharge instructions: No Please Follow Up With: [facility] SAMI When: 2 weeks in office or virtual Meaningful Use Info Meaningful Use Meaningful Use Diagnoses (Choose all that apply): None applicable Discharge Plan Admission Admit Date/Time: 07/01/25 07:28 Primary Reason for Your Visit: Labor and Delivery Attending Provider: Keyla Kay Primary Care Provider: Care Physician,Rebeca Primary Discharge Orders/Prescriptions Prescriptions: New acetaminophen 500 mg Tablet 1,000 mg PO Q6H PRN PRN (Reason: Pain 1-10 Or Fever) Qty: 0 0RF Continued famotidine 20 mg tablet 20 mg PO BID enoxaparin [Lovenox] 100 mg subcut BID Referrals / Follow Up: Care Physician,No Primary [Primary Care Provider] - Disposition Disposition (needs filled in before D/C Order can be placed): Home, Self Care 07/03/25 0910 <Electronically signed by Eleanor Gomez CNM> Cosigner Signature (if applicable): CC: MICHELLE Gomez; No Primary Care Physician~ Signed [facility] Work Phone: [phone] 641-655309-04-2025 Discharge summary [facility] Medical Records Department [address] [place] [address] Discharge Summary 07/03/25 0906 MR#: [id number] Acct: [id number] Name: CAROLINAFEDERICA MARCH Rep #:[id number] : 1990 35 From: Eleanor Gomez CNM PCP: Care Physician,No Primary Status :ADM IN Location: [id number] Providers Date of Admission: 07/01/25 Primary Care Physician: No Primary Care Phys Reason For Visit: VAG Diagnosis Discharge Diagnosis (1) Single live : Status: Acute Code(s): Z37.0 - Single live (2) (spontaneous vaginal delivery): Status: Acute Code(s): O80 - Encounter for full-term uncomplicated delivery (3) Obesity, Class II, BMI 35-39.9, isolated: Status: Acute Code(s): E66.812 - Obesity, class 2 (4) Pulmonary embolus: Status: Acute Code(s): I26.99 - Other pulmonary embolism without acute cor pulmonale Qualifiers: Pulmonary embolism type: other Chronicity: acute Acute cor pulmonale presence: without acute cor pulmonale Qualified Code(s): I26.99 - Other pulmonary embolism without acute cor pulmonale (5) Anemia: Status: Acute Code(s): D64.9 - Anemia, unspecified Plan PPD 2 support Continue Lovenox 100 mg SQ D/C home with follow up in office next week Medications at Discharge Home Medications famotidine 20 mg tablet 20 mg PO BID GERD 06/09/25 enoxaparin 100 mg subcut BID PE 07/01/25 acetaminophen 500 mg tablet 1,000 mg (2 x 500 mg) PO Q6H PRN PRN Pain 1-10 Or Fever #0 tabs 07/03/25 Hospital Course Operations None Procedures None Summary of Care Provided Minutes Spent on Discharge: 15 Hospital Course: Patient had vaginal delivery. Hospital course was uneventful. Physical Exam Narrative Patient seen at bedside. Denies pain. Ambulating and voiding without difficulty.Lochia decreased. Desires discharge home today. Const alert and oriented x3 General Appearance: Negative for in distress HEENT normocephalic Eyes General Eye: normal appearance of both eyes Neck General: normal visual inspection Chest Chest: symmetrical chest wall rise Resp normal respiratory effort and normal air movement Effort and Inspection: symmetric chest movement; Negative for tachypneic Auscultation: clear to auscultation bilaterally Cardio regular rate and regular rhythm Peripheral Pulses: pulses 2+ throughout GI normal to inspection, nondistended, normoactive bowel sounds Narrative: Ice to perineum OB / External & Speculum: vaginal bleeding and other Lochia decreasing Uterus Palpation: uterus fundus firm (Below U) Extremity normal to inspection, full ROM and normal capillary refill Skin no rashes or lesions noted Neuro oriented x3, CN's II-XII intact bilaterally and gait normal Psych mental status grossly normal, thought process normal and activity/motor behaviornormal Weight / BMI Weight Weight: 202 lb Body Mass Index (BMI) 36.9 ABG / Lab / Microbiology Data 07/02/25 05:35 D/C Instructions Discharge Activity: Return to Normal Activity, No Restrictions, May Drive, May Shower and May Take a Tub Bath (Warm water only. No bath salts, soaps, bubbles) May resume sexual activity in: 6-8 weeks Weight Bearing Status: Weight bearing as tolerated Call your doctor if you observe: Fever of 101 or Higher, Inability to urinate, Using more than 1 pad per hour, Shortness of breath, Dizziness, Chest pain, Calfdiscomfort and Uncontrolled pain DC O2, CPAP, BIPAP Needs Home O2 Discharge instructions: No Please Follow Up With: [facility] Karime SHIELDSGYJuan When: 2 weeks in office or virtual Meaningful Use Info Meaningful Use Meaningful Use Diagnoses (Choose all that apply): None applicable Discharge Plan Admission Admit Date/Time: 07/01/25 07:28 Primary Reason for Your Visit: Labor and Delivery Attending Provider: Keyla Kay Primary Care Provider: Sarah Physician,Rebeca Primary Discharge Orders/Prescriptions Prescriptions: New acetaminophen 500 mg Tablet 1,000 mg PO Q6H PRN PRN (Reason: Pain 1-10 Or Fever) Qty: 0 0RF Continued famotidine 20 mg tablet 20 mg PO BID enoxaparin [Lovenox] 100 mg subcut BID Referrals / Follow Up: Care Physician,No Primary [Primary Care Provider] - Disposition Disposition (needs filled in before D/C Order can be placed): Home, Self Care 07/03/25 0910 Cosigner Signature (if applicable): CC: MICHELLE Gomez; No Primary Care Physician~ Signed [facility]09-04-2025 [facility] Medical Records Department [address] [place] [address] Discharge Summary 07/03/25 09 MR#: [id number] Acct: [id number] Name: FEDERICA FIGUEROA ANGELIC Rep #: [id number] : 1990 35 From: Eleanor Gomez CNM PCP: Care Physician,No Primary Status:ADM IN Location: [id number] Providers Date of Admission: 07/01/25 Primary Care Physician: No Primary Care Phys Reason For Visit: VAG Diagnosis Discharge Diagnosis (1) Single live : Status: Acute Code(s): Z37.0 - Single live (2) (spontaneous vaginal delivery): Status: Acute Code(s): O80 - Encounter for full-term uncomplicated delivery (3) Obesity, Class II, BMI 35-39.9, isolated: Status: Acute Code(s): E66.812 - Obesity, class 2 (4) Pulmonary embolus: Status: Acute Code(s): I26.99 - Other pulmonary embolism without acute cor pulmonale Qualifiers: Pulmonary embolism type: other Chronicity: acute Acute cor pulmonale presence: without acute cor pulmonale Qualified Code(s): I26.99 - Other pulmonary embolism without acute cor pulmonale (5) Anemia: Status: Acute Code(s): D64.9 - Anemia, unspecified Plan PPD 2 support Continue Lovenox 100 mg SQ D/C home with follow up in office next week Medications at Discharge Home Medications famotidine 20 mg tablet 20 mg PO BID GERD 06/09/25 enoxaparin 100 mg subcut BID PE 07/01/25 acetaminophen 500 mg tablet 1,000 mg (2 x 500 mg) PO Q6H PRN PRN Pain 1-10 Or Fever #0 tabs 07/03/25 Hospital Course Operations None Procedures None Summary of Care Provided Minutes Spent on Discharge: 15 Hospital Course: Patient had vaginal delivery. Hospital course was uneventful. Physical Exam Narrative Patient seen at bedside. Denies pain. Ambulating and voiding without difficulty. Lochia decreased. Desires discharge home today. Const alert and oriented x3 General Appearance: Negative for in distress HEENT normocephalic Eyes General Eye: normal appearance of both eyes Neck General: normal visual inspection Chest Chest: symmetrical chest wall rise Resp normal respiratory effort and normal air movement Effort and Inspection: symmetric chest movement; Negative for tachypneic Auscultation: clear to auscultation bilaterally Cardio regular rate and regular rhythm Peripheral Pulses: pulses 2+ throughout GI normal to inspection, nondistended, normoactive bowel sounds Narrative: Ice to perineum OB / External Speculum: vaginal bleeding and other Lochia decreasing Uterus Palpation: uterus fundus firm (Below U) Extremity normal to inspection, full ROM and normal capillary refill Skin no rashes or lesions noted Neuro oriented x3, CN's II-XII intact bilaterally and gait normal Psych mental status grossly normal, thought process normal and activity/motor behavior normal Weight / BMI Weight Weight: 202 lb Body Mass Index (BMI) 36.9 ABG / Lab / Microbiology Data 07/02/25 05:35 D/C Instructions Discharge Activity: Return to Normal Activity, No Restrictions, May Drive, May Shower and May Take a Tub Bath (Warm water only. No bath salts, soaps, bubbles) May resume sexual activity in: 6-8 weeks Weight Bearing Status: Weight bearing as tolerated Call your doctor if you observe: Fever of 101 or Higher, Inability to urinate, Using more than 1 pad per hour, Shortness of breath, Dizziness, Chest pain, Calf discomfort and Uncontrolled pain DC O2, CPAP, BIPAP Needs Home O2 Discharge instructions: No Please Follow Up With: [facility] Karime GALLARDO When: 2 weeks in office or virtual Meaningful Use Info Meaningful Use Meaningful Use Diagnoses (Choose all that apply): None applicable Discharge Plan Admission Admit Date/Time: 07/01/25 07:28 Primary Reason for Your Visit: Labor and Delivery Attending Provider: Keyla Kay Primary Care Provider: Care Physician,Rebeca Primary Discharge Orders/Prescriptions Prescriptions: New acetaminophen 500 mg Tablet 1,000 mg PO Q6H PRN PRN (Reason: Pain 1-10 Or Fever) Qty: 0 0RF Continued famotidine 20 mg tablet 20 mg PO BID enoxaparin [Lovenox] 100 mg subcut BID Referrals / Follow Up: Care Physician,No Primary [Primary Care Provider] - Disposition Disposition (needs filled in before D/C Order can be placed): Home, Self Care 07/03/25 0910 Cosigner Signature (if applicable): CC: MICHELLE Gomez; No Primary Care Physician [facility] Progress note Author Christian Rosa [facility] Note Date/Time July 02, 2025 8:17am [facility] Medical Records Department [address] [place] [address] Progress Note 07/02/25815 MR#: [id number] Acct: [id number] Name: FEDERICA FIGUEROA Rep #:[id number] : 1990 35 From: Christian Houston MD PCP: Care Physician,No Primary Status :ADM IN Location: [id number] Subjective Subjective patient seen at bedside, doing well. Patient reports good pain control. lochia mild. Objective Data Objective Data Vital Signs: Vital Signs Temp Pulse Resp BP Pulse Ox O2 Del Method 97.6 F L 83 16 115/63 99 Room Air 07/02/25 08:15 07/02/25 08:15 07/02/25 08:15 07/02/25 08:15 07/02/25 03:47 07/02/25 03:47 Oxygen Delivery Method Room Air Weight: 91.626 kg Body Mass Index (BMI) 36.9 Intake & Output: Intake and Output for Last 24 Hours 06/30/25 07/01/25 07/02/25 23:59 23:59 23:59 Intake Total 4146.16 / 4146.16 250 / 250 Output Total 1575 / 1575 600 / 600 Balance 2571.16 / 2571.16 -350 / -350 Lab / Micro Data 07/02/25 05:35 Labs: Laboratory Results - last 24 hr 07/01/25 08:00: WBC 9.7, RBC 4.58, Hgb 11.3 L, Hct 36.2 L, MCV 79.0 L, MCH 24.7 L, MCHC 31.2 L, RDW Std Deviation 70.1 H, RDW Coeff of Shannon 25.2 H, Plt Count 261, MPV 8.3, Immature Gran % (Auto) 0.900, Neut % (Auto) 75.5 H, Lymph % (Auto)16.8 L, Campbell % (Auto) 5.5, Eos % (Auto) 1.0, Baso % (Auto) 0.3, Absolute Neuts (auto) 7.3, Absolute Lymphs (auto) 1.62, Nucleated RBC % 0, Anisocytosis 2+, Syphilis Total Ab Nonreactive, Blood Type B POSITIVE, Antibody Screen NEGATIVE 07/02/25 05:35: WBC 17.0 H, RBC 4.05 L, Hgb 10.2 L, Hct 31.9 L, MCV 78.8 L, MCH 25.2 L, MCHC 32.0, RDW Std Deviation 69.0 H, RDW Coeff of Shannon 25.0 H, Plt Count 230, MPV 8.5, Immature Gran % (Auto) 0.800, Neut % (Auto) 84.5 H, Lymph % (Auto)9.0 L, Campbell % (Auto) 5.2, Eos % (Auto) 0.3, Baso % (Auto) 0.2, Absolute Neuts (auto) 14.4 H, Absolute Lymphs (auto) 1.54, Nucleated RBC % 0, Differential Comment SCANNED, Polychromasia RARE, Anisocytosis 1+, Ovalocytes RARE Physical Exam Narrative Abd: fundus firm. Const alert and oriented x3 General Appearance: cooperative HEENT normocephalic Neck General: normal visual inspection GI soft to palpation and non-distended GI Narrative: Fundus firm Extremity normal to inspection and no calf tenderness Skin no rashes or lesions noted Neuro oriented x3 and CN's II-XII intact bilaterally Psych mental status grossly normal Assessment & Plan Assessment/Plan (1) Single live : (2) (spontaneous vaginal delivery): (3) Obesity, Class II, BMI 35-39.9, isolated: (4) Pulmonary embolus: QUALIFIERS: Pulmonary embolism type: other Chronicity: acute Acute cor pulmonale presence: without acute cor pulmonale Qualified Code(s): I26.99 - Other pulmonary embolism without acute cor pulmonale (5) Anemia: PLAN: Plan PPD# 1 , Doing well Routine care pain mgmt ambulation Lovenox to restart 07/02/25 0817 <Electronically signed by Christian De Souza MD> Christian De Souza MD Cosigner Signature (if applicable): CC: ~ Signed [facility] Work Phone: 1([phone] 507-660009-03-2025 NoteHNO ID: [id number] Author: BINH WADE RN Service: ? Author Type: Registered Nurse Type: Progress Notes Filed: 07/02/2025 08:32 Note Text: Patient delivered via by Dr. Kay on 07/01/25 at [facility]. See OB history. [facility] History of Present illness Narrative* Binh Wade RN - 07/02/2025 8:29 AM EDT Patient delivered via by Dr. Kay on 07/01/25 at [facility]. See OB history. Binh Wade RN documented in [facility]Hol[facility] Progress note [facility] Medical Records Department [address] [place] [address] Progress Note 07/02/25 0816 MR#: [id number] Acct: [id number] Name: FEDERICA FIGUEROA ANGELIC Rep #:[id number] : 1990 35 From: Christian Houston MD PCP: Care Physician,No Primary Status :ADM IN Location: [place] [id number] Subjective Subjective patient seen at bedside, doing well. Patient reports good pain control. lochia mild. Objective Data Objective Data Vital Signs: Vital Signs Temp Pulse Resp BP Pulse Ox O2 Del Method 97.6 F L 83 16 115/63 99 Room Air 07/02/25 08:15 07/02/25 08:15 07/02/25 08:15 07/02/25 08:15 07/02/25 03:47 07/02/25 03:47 Oxygen Delivery Method Room Air Weight: 91.626 kg Body Mass Index (BMI) 36.9 Intake & Output: Intake and Output for Last 24 Hours 06/30/25 07/01/25 07/02/25 23:59 23:59 23:59 Intake Total 4146.16 / 4146.16 250 / 250 Output Total 1575 / 1575 600 / 600 Balance 2571.16 / 2571.16 -350 / -350 Lab / Micro Data 07/02/25 05:35 Labs: Laboratory Results - last 24 hr 07/01/25 08:00: WBC 9.7, RBC 4.58, Hgb 11.3 L, Hct 36.2 L, MCV 79.0 L, MCH 24.7 L, MCHC 31.2 L, RDWStd Deviation 70.1 H, RDW Coeff of Shannon 25.2 H, Plt Count 261, MPV 8.3, Immature Gran % (Auto) 0.900, Neut % (Auto) 75.5 H, Lymph % (Auto)16.8 L, Campbell % (Auto) 5.5, Eos % (Auto) 1.0, Baso % (Auto) 0.3, Absolute Neuts (auto) 7.3, Absolute Lymphs (auto) 1.62, Nucleated RBC % 0, Anisocytosis 2+, Syphilis Total Ab Nonreactive, Blood Type B POSITIVE, Antibody Screen NEGATIVE 07/02/25 05:35: WBC 17.0 H, RBC 4.05 L, Hgb 10.2 L, Hct 31.9 L, MCV 78.8 L, MCH 25.2 L, MCHC 32.0, RDW Std Deviation 69.0 H, RDW Coeff of Shannon 25.0 H, Plt Count 230, MPV 8.5, Immature Gran % (Auto) 0.800, Neut % (Auto) 84.5 H, Lymph % (Auto)9.0 L, Campbell % (Auto) 5.2, Eos % (Auto) 0.3, Baso % (Auto) 0.2, Absolute Neuts (auto) 14.4 H, Absolute Lymphs (auto) 1.54, Nucleated RBC % 0, Differential Comment SCANNED, Polychromasia RARE, Anisocytosis 1+, Ovalocytes RARE Physical Exam Narrative Abd: fundus firm. Const alert and oriented x3 General Appearance: cooperative HEENT normocephalic Neck General: normal visual inspection GI soft to palpation and non-distended GI Narrative: Fundus firm Extremity normal to inspection and no calf tenderness Skin no rashes or lesions noted Neuro oriented x3 and CN's II-XII intact bilaterally Psych mental status grossly normal Assessment & Plan Assessment/Plan (1) Single live : (2) (spontaneous vaginal delivery): (3) Obesity, Class II, BMI 35-39.9, isolated: (4) Pulmonary embolus: QUALIFIERS: Pulmonary embolism type: other Chronicity: acute Acute cor pulmonale presence: without acute cor pulmonale Qualified Code(s): I26.99 - Other pulmonary embolism without acute cor pulmonale (5) Anemia: PLAN: Plan PPD# 1 , Doing well Routine care pain mgmt ambulation Lovenox to restart 07/02/25 0817 Christian De Souza MD Cosigner Signature (if applicable): CC: ~ Signed [facility]09-02-2025 Procedure note [facility] Medical Records Department [address] [place] [address] OB Vaginal Delivery 07/01/25 2250 MR#: [id number] Acct: [id number] Name: FEDERICA FIGUEROA MARCH Rep #:[id number] : 1990 35 From: Keyla Kay MD PCP: Care Physician,No Primary Status :ADM IN Location: [place] [address] Assessment & Plan (1) Obesity, Class II, BMI 35-39.9, isolated: (2) (spontaneous vaginal delivery): (3) Single live : (4) Maternal obesity affecting , antepartum: (5) Supervision of high risk in third trimester: COMMENT: Risk-benefit and alternatives to induction of labor discussed with patient her questions were answered to her satisfaction consent was signed and she desires to proceed. Will proceed with Bar[place] with Pitocin and artificialrupture membranes as needed. May have routine pain control measures as needed. Estimated weight is approximately 4000 g. Pelvis clinically adequate to expect vaginal delivery. (6) 39 weeks gestation of : Maternal Data Information Final CAROLYN: 07/07/25 Gestational age: 39 1/7 Vaginal Delivery Maternal Presentation Maternal Presentation: Medically Indicated Induction Type of Induction: Pitocin, Barksdale Bulb and Amniotomy Vaginal Delivery Information Procedure Performed: Spontaneous Vaginal Delivery Surgeon/Practitioner: Keyla Kay Date of Procedure: 07/01/25 Pre-Procedure Diagnosis: labor Post-Procedure Diagnosis: same Type of anesthesia: Epidural Special Medications: none Estimated Blood Loss: 300 Time of Delivery: 22:28 Findings Description of procedure: A vigorous female was delivered THEA over a second-degree perineal laceration. A tight nuchalcord x 3 was reduced. The remainder the was delivered with maternal pushing and gentle traction only in less than 15 seconds. The Pitocin infusion was initiated for active management of the third stage. The cord was clamped and cut after approximately 15 seconds so the infant could be handedoff to the warmer for evaluation. The infant was attended to by the waiting nursing staff. The placenta was delivered spontaneously and intact. The cervix and vagina were intact. The second-degreeperineal laceration was repaired with 3-0 Vicryl suture in a running standard fashion. Sponge and needle counts were correct. A vaginal sweep was completed by me. Procedure findings: Vigorous female infant Presentation: THEA Amniotic Membrane Rupture Type: Artificial Amniotic Fluid Description: Clear Placental Delivery Description: Spontaneous Placenta Disposition: [facility] Specimen collected: Yes Description of specimen(s) removed: Placenta Cord Vessel Description: 3 Vessels Cord Entanglement: Other (around neck x 3 tight) Nuchal Cord Compression: With compression Cord Gases: ABG and VBG Infant A Gender: Female (Dali) (1 minute): 8 (5 minute): 9 Delayed Cord Clamping: No Shale [employer] Blasting jewish thought professor: No Post Vaginal Deli Medications given after delivery: IV Pitocin Episiotomy Description: None Laceration: None Complication Complications: No 07/01/25 2377 Cosigner Signature (if applicable): CC: Dr. 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 She denies any gross vaginal bleeding or leaking of fluid upon admission she has had some irregular contractions. Herpregnancy has been complicated to date by LGA fetus, maternal obesity, anemia, polyhydramnios. She was dx w/ a PE on 06/13/25 and is on lovenox for this. She held her dose last night in anticipation of induction. Maternal Data Information Final CAROLYN: 07/07/25 Gestational age: 39 1/7 [facility] Medical History (Updated 07/01/25 @ 19:[address] Keyla Kay MD) Pulmonary embolism affecting in third trimester Infertility Asthma Depression Anxiety Headache Polyhydramnios Constipation Anemia Hemorrhoids Home Medications ?Medication ?Instructions ?Recorded ?Last Taken ?Type famotidine 20 mg tablet 20 mg PO BID GERD 06/09/25 0 06/30/25 22:30 History enoxaparin 100 mg subcut BID PE 5 06/29/25 00:00 History Allergy/AdvReac Type Severity Reaction Status Date / Time No Known Allergies Allergy Verified 07/01/25 07:47 Social History Smoking Status: Never smoker alcohol intake: never substance use type: does not use History 2 Elective abortions Hx Para 1 Spontaneous abortions Hx # Term Pregnancies Ectopic pregnancies Hx # Pregnancies Multiple births # of living children ROS Constitutional Constitutional: Denies fatigue, fever(s) or malaise Eyes Eyes: Denies change in vision ENT HEENT: Denies dizziness or headache(s) Cardiovascular Cardiovascular: Denies chest pain, dyspnea or lightheadedness Respiratory/Chest Respiratory/Chest: Denies cough or dyspnea Gastrointestinal Gastrointestinal: Denies change in bowel habits Genitourinary Genitourinary: Denies burning urination or genital lesions Integumentary Integumentary: Denies rash Neurologic Neurologic: Denies confusion, dizziness, headache(s), numbness or weakness Vital Signs Vital Signs Vital Signs: 07/01/25 07:41 07/01/25 07:41 07/01/25 07:42 Temperature Temperature Source Pulse Rate 113 H Respiratory Rate Blood Pressure 117/76 BP Systolic 117 BP Diastolic 76 Pulse Ox 95 07/01/25 07:42 07/01/25 07:42 07/01/25 07:42 Temperature Temperature Source Temporal Pulse Rate 103 H Respiratory Rate 16 Blood Pressure BP Systolic BP Diastolic Pulse Ox 07/01/25 07:42 07/01/25 07:42 07/01/25 09:46 Temperature 97.4 F L Temperature Source Pulse Rate Respiratory Rate Blood Pressure 131/87 H BP Systolic 131 BP Diastolic 87 Pulse Ox 95 07/01/25 09:46 07/01/25 09:46 07/01/25 09:47 Temperature Temperature Source Temporal Pulse Rate 72 Respiratory Rate Blood Pressure BP Systolic BP Diastolic Pulse Ox 96 07/01/25 09:47 07/01/25 09:47 07/01/25 09:47 Temperature 97.2 F L Temperature Source Pulse Rate Respiratory Rate 16 Blood Pressure BP Systolic BP Diastolic Pulse Ox 96 07/01/25 10:47 07/01/25 10:47 07/01/25 10:47 Temperature Temperature Source Pulse Rate 71 Respiratory Rate Blood Pressure 128/81 H BP Systolic 128 BP Diastolic 81 Pulse Ox 93 07/01/25 10:48 07/01/25 10:48 07/01/25 10:48 Temperature Temperature Source Temporal Pulse Rate Respiratory Rate 18 Blood Pressure BP Systolic BP Diastolic Pulse Ox 95 07/01/25 10:48 07/01/25 11:53 07/01/25 11:53 Temperature 97.3 F L Temperature Source Pulse Rate 77 Respiratory Rate Blood Pressure 142/86 H BP Systolic 142 BP Diastolic 86 Pulse Ox 07/01/25 11:53 07/01/25 11:53 07/01/25 11:53 Temperature Temperature Source Temporal Pulse Rate Respiratory Rate 16 Blood Pressure BP Systolic BP Diastolic Pulse Ox 96 07/01/25 11:53 07/01/25 14:03 07/01/25 14:03 Temperature 97.1 F L Temperature Source Pulse Rate 94 Respiratory Rate Blood Pressure BP Systolic BP Diastolic Pulse Ox 97 07/01/25 14:04 07/01/25 14:04 07/01/25 14:05 Temperature Temperature Source Pulse Rate 87 Respiratory Rate Blood Pressure 135/95 H BP Systolic 135 BP Diastolic 95 Pulse Ox 91 07/01/25 14:05 07/01/25 14:05 07/01/25 14:08 Temperature Temperature Source Pulse Rate 77 99 Respiratory Rate 18 Blood Pressure BP Systolic BP Diastolic Pulse Ox 07/01/25 14:08 07/01/25 14:10 07/01/25 14:11 Temperature Temperature Source Pulse Rate Respiratory Rate 20 H Blood Pressure 151/70 H BP Systolic 151 BP Diastolic 70 Pulse Ox 100 07/01/25 14:11 07/01/25 14:13 07/01/25 14:13 Temperature Temperature Source Pulse Rate 70 68 Respiratory Rate Blood Pressure BP Systolic BP Diastolic Pulse Ox 100 07/01/25 14:15 07/01/25 14:15 07/01/25 14:15 Temperature Temperature Source Pulse Rate 86 Respiratory Rate 18 Blood Pressure 141/63 H BP Systolic 141 BP Diastolic 63 Pulse Ox 07/01/25 14:18 07/01/25 14:18 07/01/25 14:18 Temperature Temperature Source Pulse Rate 98 85 Respiratory Rate Blood Pressure BP Systolic BP Diastolic Pulse Ox 94 07/01/25 14:18 07/01/25 14:20 07/01/25 14:20 Temperature Temperature Source Pulse Rate 96 Respiratory Rate Blood Pressure 144/90 H BP Systolic 144 BP Diastolic 90 Pulse Ox 91 07/01/25 14:20 07/01/25 14:23 07/01/25 14:23 Temperature Temperature Source Pulse Rate 104 H Respiratory Rate 18 Blood Pressure BP Systolic BP Diastolic Pulse Ox 95 07/01/25 14:24 07/01/25 14:24 07/01/25 14:25 Temperature Temperature Source Pulse Rate 101 H Respiratory Rate Blood Pressure 122/61 H BP Systolic 122 BP Diastolic 61 Pulse Ox 94 07/01/25 14:25 07/01/25 14:25 07/01/25 14:28 Temperature Temperature Source Pulse Rate 91 93 Respiratory Rate 16 Blood Pressure BP Systolic BP Diastolic Pulse Ox 07/01/25 14:28 07/01/25 14:28 07/01/25 14:28 Temperature Temperature Source Pulse Rate Respiratory Rate 18 Blood Pressure BP Systolic BP Diastolic Pulse Ox 95 95 07/01/25 14:28 07/01/25 14:30 07/01/25 14:30 Temperature 97.5 F L Temperature Source Pulse Rate 90 Respiratory Rate Blood Pressure BP Systolic BP Diastolic Pulse Ox 94 07/01/25 14:31 07/01/25 14:31 07/01/25 14:31 Temperature Temperature Source Pulse Rate 89 Respiratory Rate 16 Blood Pressure 118/58 L BP Systolic 118 BP Diastolic 58 Pulse Ox 07/01/25 14:33 07/01/25 14:33 07/01/25 14:36 Temperature Temperature Source Pulse Rate 84 Respiratory Rate Blood Pressure 114/66 BP Systolic 114 BP Diastolic 66 Pulse Ox 94 07/01/25 14:36 07/01/25 14:36 07/01/25 14:38 Temperature Temperature Source Pulse Rate 85 81 Respiratory Rate 16 Blood Pressure BP Systolic BP Diastolic Pulse Ox 07/01/25 14:38 07/01/25 14:39 07/01/25 14:39 Temperature Temperature Source Pulse Rate 82 Respiratory Rate Blood Pressure BP Systolic BP Diastolic Pulse Ox 94 94 07/01/25 14:40 07/01/25 14:41 07/01/25 14:41 Temperature Temperature Source Pulse Rate 84 Respiratory Rate 16 Blood Pressure 122/73 H BP Systolic 122 BP Diastolic 73 Pulse Ox 07/01/25 14:51 07/01/25 14:51 07/01/25 14:56 Temperature Temperature Source Pulse Rate 86 81 Respiratory Rate Blood Pressure BP Systolic BP Diastolic Pulse Ox 95 07/01/25 14:56 07/01/25 14:59 07/01/25 14:59 Temperature Temperature Source Pulse Rate 85 Respiratory Rate Blood Pressure BP Systolic BP Diastolic Pulse Ox 96 93 07/01/25 15:01 07/01/25 15:01 07/01/25 15:04 Temperature Temperature Source Pulse Rate 83 80 Respiratory Rate Blood Pressure BP Systolic BP Diastolic Pulse Ox 96 07/01/25 15:04 07/01/25 15:06 07/01/25 15:06 Temperature Temperature Source Pulse Rate 83 Respiratory Rate Blood Pressure BP Systolic BP Diastolic Pulse Ox 94 94 07/01/25 15:10 07/01/25 15:10 07/01/25 15:11 Temperature Temperature Source Pulse Rate 78 75 Respiratory Rate Blood Pressure BP Systolic BP Diastolic Pulse Ox 94 07/01/25 15:11 07/01/25 15:21 07/01/25 15:21 Temperature Temperature Source Temporal Pulse Rate 78 Respiratory Rate Blood Pressure BP Systolic BP Diastolic Pulse Ox 94 07/01/25 15:21 07/01/25 15:21 07/01/25 15:21 Temperature 97.5 F L Temperature Source Pulse Rate Respiratory Rate 18 Blood Pressure BP Systolic BP Diastolic Pulse Ox 97 07/01/25 15:22 07/01/25 15:22 07/01/25 15:26 Temperature Temperature Source Pulse Rate 75 69 Respiratory Rate Blood Pressure 122/68 H BP Systolic 122 BP Diastolic 68 Pulse Ox 07/01/25 15:26 07/01/25 15:31 07/01/25 15:31 Temperature Temperature Source Pulse Rate 84 Respiratory Rate Blood Pressure 128/68 H BP Systolic 128 BP Diastolic 68 Pulse Ox 99 07/01/25 15:31 07/01/25 15:36 07/01/25 15:36 Temperature Temperature Source Pulse Rate 77 Respiratory Rate Blood Pressure BP Systolic BP Diastolic Pulse Ox 98 96 07/01/25 15:41 07/01/25 15:41 07/01/25 15:46 Temperature Temperature Source Pulse Rate 82 76 Respiratory Rate Blood Pressure BP Systolic BP Diastolic Pulse Ox 97 07/01/25 15:46 07/01/25 15:51 07/01/25 15:51 Temperature Temperature Source Pulse Rate 67 Respiratory Rate Blood Pressure BP Systolic BP Diastolic Pulse Ox 96 95 07/01/25 17:08 07/01/25 17:08 07/01/25 17:08 Temperature Temperature Source Temporal Pulse Rate 84 Respiratory Rate Blood Pressure 114/58 L BP Systolic 114 BP Diastolic 58 Pulse Ox 07/01/25 17:08 07/01/25 17:08 07/01/25 17:08 Temperature 97.3 F L Temperature Source Pulse Rate Respiratory Rate 16 Blood Pressure BP Systolic BP Diastolic Pulse Ox 99 Weight Weight: 91.626 kg Body Mass Index (BMI) 36.9 Physical Exam Const alert and no apparent distress General Appearance: cooperative HEENT normocephalic Resp normal respiratory effort Cardio regular rate GI soft to palpation GI Narrative: gravid, nontender, appropriate for gestational age Extremity no calf tenderness General Extremity: edema Skin no wounds Rashes: No rashes noted Psych activity/motor behavior normal Labs Labs Labs: Blood Type B POSITIVE Antibody Screen NEGATIVE Hct 36.2 % (37-47) L Hgb 11.3 g/dL (12.0-15.0) L Syphilis Total Ab Nonreactive (Nonreactive) Assessment & Plan (1) 39 weeks gestation of : (2) Supervision of high risk in third trimester: COMMENT: Risk-benefit and alternatives to induction of labor discussed with patient her questions were answered to her satisfaction consent was signed and she desires to proceed. Will proceed with [place] with Pitocin and artificialrupture membranes as needed. May have routine pain control measures as needed. Estimated weight is approximately 4000 g. Pelvis clinically adequate to expect vaginal delivery. (3) LGA (large for gestational age) fetus affecting management of mother: QUALIFIERS: Fetus number: single or unspecified fetus Trimester: third trimester Qualified Code(s): O36.63X0 - Maternal care for excessive fetalgrowth, third trimester, not applicable or unspecified (4) Polyhydramnios affecting in third trimester: (5) Maternal obesity affecting , antepartum: (6) Obesity, Class II, BMI 35-39.9, isolated: (7) Pulmonary embolus: QUALIFIERS: Pulmonary embolism type: other Chronicity: acute Acute cor pulmonale presence: without acute cor pulmonale Qualified Code(s): I26.99 - Other pulmonary embolism without acute cor pulmonale COMMENT: restart treatment after delivery. SAM [email or web address] on (8) Third trimester : (9) Anemia: COMMENT: has been on 07/01/251909 <Electronically signed by Keyla Kay MD> Cosigner Signature (if applicable): CC: Dr. 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 She denies any gross vaginal bleeding or leaking of fluid upon admission she has had some irregular contractions. Herpregnancy has been complicated to date by LGA fetus, maternal o besity, anemia, polyhydramnios. She was dx w/ a PE on 06/13/25 and is on lovenox for this. She held her dose last night in anticipation of induction. Maternal Data Information Final CAROLYN: 07/07/25 Gestational age: 39 1/7 PFSH PFSH Medical History (Updated 07/01/25 @ 19:[address] Keyla Kay MD) Pulmonary embolism affecting in third trimester Infertility Asthma Depression Anxiety Headache Polyhydramnios Constipation Anemia Hemorrhoids Home Medications ?Medication ?Instructions ?Recorded ?Last Taken ?Type famotidine 20 mg tablet 20 mg PO BID GERD 06/09/25 0 06/30/25 22:30 History enoxaparin 100 mg subcut BID PE 5 06/29/25 00:00 History Allergy/AdvReac Type Severity Reaction Status Date / Time No Known Allergies Allergy Verified 07/01/25 07:47 Social History Smoking Status: Never smoker alcohol intake: never substance use type: does not use History 2 Elective abortions Hx Para 1 Spontaneous abortions Hx # Term Pregnancies Ectopic pregnancies Hx # Pregnancies Multiple births # of living children ROS Constitutional Constitutional: Denies fatigue, fever(s) or malaise Eyes Eyes: Denies change in vision ENT HEENT: Denies dizziness or headache(s) Cardiovascular Cardiovascular: Denies chest pain, dyspnea or lightheadedness Respiratory/Chest Respiratory/Chest: Denies cough or dyspnea Gastrointestinal Gastrointestinal: Denies change in bowel habits Genitourinary Genitourinary: Denies burning urination or genital lesions Integumentary Integumentary: Denies rash Neurologic Neurologic: Denies confusion, dizziness, headache(s), numbness or weakness Vital Signs Vital Signs Vital Signs: 07/01/25 07:41 07/01/25 07:41 07/01/25 07:42 Temperature Temperature Source Pulse Rate 113 H Respiratory Rate Blood Pressure 117/76 BP Systolic 117 BP Diastolic 76 Pulse Ox 95 07/01/25 07:42 07/01/25 07:42 07/01/25 07:42 Temperature Temperature Source Temporal Pulse Rate 103 H Respiratory Rate 16 Blood Pressure BP Systolic BP Diastolic Pulse Ox 07/01/25 07:42 07/01/25 07:42 07/01/25 09:46 Temperature 97.4 F L Temperature Source Pulse Rate Respiratory Rate Blood Pressure 131/87 H BP Systolic 131 BP Diastolic 87 Pulse Ox 95 07/01/25 09:46 07/01/25 09:46 07/01/25 09:47 Temperature Temperature Source Temporal Pulse Rate 72 Respiratory Rate Blood Pressure BP Systolic BP Diastolic Pulse Ox 96 07/01/25 09:47 07/01/25 09:47 07/01/25 09:47 Temperature 97.2 F L Temperature Source Pulse Rate Respiratory Rate 16 Blood Pressure BP Systolic BP Diastolic Pulse Ox 96 07/01/25 10:47 07/01/25 10:47 07/01/25 10:47 Temperature Temperature Source Pulse Rate 71 Respiratory Rate Blood Pressure 128/81 H BP Systolic 128 BP Diastolic 81 Pulse Ox 93 07/01/25 10:48 07/01/25 10:48 07/01/25 10:48 Temperature Temperature Source Temporal Pulse Rate Respiratory Rate 18 Blood Pressure BP Systolic BP Diastolic Pulse Ox 95 07/01/25 10:48 07/01/25 11:53 07/01/25 11:53 Temperature 97.3 F L Temperature Source Pulse Rate 77 Respiratory Rate Blood Pressure 142/86 H BP Systolic 142 BP Diastolic 86 Pulse Ox 07/01/25 11:53 07/01/25 11:53 07/01/25 11:53 Temperature Temperature Source Temporal Pulse Rate Respiratory Rate 16 Blood Pressure BP Systolic BP Diastolic Pulse Ox 96 07/01/25 11:53 07/01/25 14:03 07/01/25 14:03 Temperature 97.1 F L Temperature Source Pulse Rate 94 Respiratory Rate Blood Pressure BP Systolic BP Diastolic Pulse Ox 97 07/01/25 14:04 07/01/25 14:04 07/01/25 14:05 Temperature Temperature Source Pulse Rate 87 Respiratory Rate Blood Pressure 135/95 H BP Systolic 135 BP Diastolic 95 Pulse Ox 91 07/01/25 14:05 07/01/25 14:05 07/01/25 14:08 Temperature Temperature Source Pulse Rate 77 99 Respiratory Rate 18 Blood Pressure BP Systolic BP Diastolic Pulse Ox 07/01/25 14:08 07/01/25 14:10 07/01/25 14:11 Temperature Temperature Source Pulse Rate Respiratory Rate 20 H Blood Pressure 151/70 H BP Systolic 151 BP Diastolic 70 Pulse Ox 100 07/01/25 14:11 07/01/25 14:13 07/01/25 14:13 Temperature Temperature Source Pulse Rate 70 68 Respiratory Rate Blood Pressure BP Systolic BP Diastolic Pulse Ox 100 07/01/25 14:15 07/01/25 14:15 07/01/25 14:15 Temperature Temperature Source Pulse Rate 86 Respiratory Rate 18 Blood Pressure 141/63 H BP Systolic 141 BP Diastolic 63 Pulse Ox 07/01/25 14:18 07/01/25 14:18 07/01/25 14:18 Temperature Temperature Source Pulse Rate 98 85 Respiratory Rate Blood Pressure BP Systolic BP Diastolic Pulse Ox 94 07/01/25 14:18 07/01/25 14:20 07/01/25 14:20 Temperature Temperature Source Pulse Rate 96 Respiratory Rate Blood Pressure 144/90 H BP Systolic 144 BP Diastolic 90 Pulse Ox 91 07/01/25 14:20 07/01/25 14:23 07/01/25 14:23 Temperature Temperature Source Pulse Rate 104 H Respiratory Rate 18 Blood Pressure BP Systolic BP Diastolic Pulse Ox 95 07/01/25 14:24 07/01/25 14:24 07/01/25 14:25 Temperature Temperature Source Pulse Rate 101 H Respiratory Rate Blood Pressure 122/61 H BP Systolic 122 BP Diastolic 61 Pulse Ox 94 07/01/25 14:25 07/01/25 14:25 07/01/25 14:28 Temperature Temperature Source Pulse Rate 91 93 Respiratory Rate 16 Blood Pressure BP Systolic BP Diastolic Pulse Ox 07/01/25 14:28 07/01/25 14:28 07/01/25 14:28 Temperature Temperature Source Pulse Rate Respiratory Rate 18 Blood Pressure BP Systolic BP Diastolic Pulse Ox 95 95 07/01/25 14:28 07/01/25 14:30 07/01/25 14:30 Temperature 97.5 F L Temperature Source Pulse Rate 90 Respiratory Rate Blood Pressure BP Systolic BP Diastolic Pulse Ox 94 07/01/25 14:31 07/01/25 14:31 07/01/25 14:31 Temperature Temperature Source Pulse Rate 89 Respiratory Rate 16 Blood Pressure 118/58 L BP Systolic 118 BP Diastolic 58 Pulse Ox 07/01/25 14:33 07/01/25 14:33 07/01/25 14:36 Temperature Temperature Source Pulse Rate 84 Respiratory Rate Blood Pressure 114/66 BP Systolic 114 BP Diastolic 66 Pulse Ox 94 07/01/25 14:36 07/01/25 14:36 07/01/25 14:38 Temperature Temperature Source Pulse Rate 85 81 Respiratory Rate 16 Blood Pressure BP Systolic BP Diastolic Pulse Ox 07/01/25 14:38 07/01/25 14:39 07/01/25 14:39 Temperature Temperature Source Pulse Rate 82 Respiratory Rate Blood Pressure BP Systolic BP Diastolic Pulse Ox 94 94 09/02/25 14:40 07/01/25 14:41 07/01/25 14:41 Temperature Temperature Source Pulse Rate 84 Respiratory Rate 16 Blood Pressure 122/73 H BP Systolic 122 BP Diastolic 73 Pulse Ox 07/01/25 14:51 07/01/25 14:51 07/01/25 14:56 Temperature Temperature Source Pulse Rate 86 81 Respiratory Rate Blood Pressure BP Systolic BP Diastolic Pulse Ox 95 07/01/25 14:56 07/01/25 14:59 07/01/25 14:59 Temperature Temperature Source Pulse Rate 85 Respiratory Rate Blood Pressure BP Systolic BP Diastolic Pulse Ox 96 93 07/01/25 15:01 07/01/25 15:01 07/01/25 15:04 Temperature Temperature Source Pulse Rate 83 80 Respiratory Rate Blood Pressure BP Systolic BP Diastolic Pulse Ox 96 07/01/25 15:04 07/01/25 15:06 07/01/25 15:06 Temperature Temperature Source Pulse Rate 83 Respiratory Rate Blood Pressure BP Systolic BP Diastolic Pulse Ox 94 94 07/01/25 15:10 07/01/25 15:10 07/01/25 15:11 Temperature Temperature Source Pulse Rate 78 75 Respiratory Rate Blood Pressure BP Systolic BP Diastolic Pulse Ox 94 07/01/25 15:11 07/01/25 15:21 07/01/25 15:21 Temperature Temperature Source Temporal Pulse Rate 78 Respiratory Rate Blood Pressure BP Systolic BP Diastolic Pulse Ox 94 07/01/25 15:21 07/01/25 15:21 07/01/25 15:21 Temperature 97.5 F L Temperature Source Pulse Rate Respiratory Rate 18 Blood Pressure BP Systolic BP Diastolic Pulse Ox 97 07/01/25 15:22 07/01/25 15:22 07/01/25 15:26 Temperature Temperature Source Pulse Rate 75 69 Respiratory Rate Blood Pressure 122/68 H BP Systolic 122 BP Diastolic 68 Pulse Ox 07/01/25 15:26 07/01/25 15:31 07/01/25 15:31 Temperature Temperature Source Pulse Rate 84 Respiratory Rate Blood Pressure 128/68 H BP Systolic 128 BP Diastolic 68 Pulse Ox 99 07/01/25 15:31 07/01/25 15:36 07/01/25 15:36 Temperature Temperature Source Pulse Rate 77 Respiratory Rate Blood Pressure BP Systolic BP Diastolic Pulse Ox 98 96 07/01/25 15:41 07/01/25 15:41 07/01/25 15:46 Temperature Temperature Source Pulse Rate 82 76 Respiratory Rate Blood Pressure BP Systolic BP Diastolic Pulse Ox 97 07/01/25 15:46 07/01/25 15:51 07/01/25 15:51 Temperature Temperature Source Pulse Rate 67 Respiratory Rate Blood Pressure BP Systolic BP Diastolic Pulse Ox 96 95 07/01/25 17:08 07/01/25 17:08 07/01/25 17:08 Temperature Temperature Source Temporal Pulse Rate 84 Respiratory Rate Blood Pressure 114/58 L BP Systolic 114 BP Diastolic 58 Pulse Ox 07/01/25 17:08 07/01/25 17:08 07/01/25 17:08 Temperature 97.3 F L Temperature Source Pulse Rate Respiratory Rate 16 Blood Pressure BP Systolic BP Diastolic Pulse Ox 99 Weight Weight: 91.626 kg Body Mass Index (BMI) 36.9 Physical Exam Const alert and no apparent distress General Appearance: cooperative HEENT normocephalic Resp normal respiratory effort Cardio regular rate GI soft to palpation GI Narrative: gravid, nontender, appropriate for gestational age Extremity no calf tenderness General Extremity: edema Skin no wounds Rashes: No rashes noted Psych activity/motor behavior normal Labs Labs Labs: Blood Type B POSITIVE Antibody Screen NEGATIVE Hct 36.2 % (37-47) L Hgb 11.3 g/dL (12.0-15.0) L Syphilis Total Ab Nonreactive (Nonreactive) Assessment & Plan (1) 39 weeks gestation of : (2) Supervision of high risk in third trimester: COMMENT: Risk-benefit and alternatives to induction of labor discussed with patient her questions were answered to her satisfaction consent was signed and she desires to proceed. Will proceed with [place] with Pitocin and artificialrupture membranes as needed. May have routine pain control measures as needed. Estimated weight is approximately 4000 g. Pelvis clinically adequate to expect vaginal delivery. (3) LGA (large for gestational age) fetus affecting management of mother: QUALIFIERS: Fetus number: single or unspecified fetus Trimester: third trimester Qualified Code(s):O36.63X0 - Maternal care for excessive fetalgrowth, third trimester, not applicable or unspecified (4) Polyhydramnios affecting in third trimester: (5) Maternal obesity affecting , antepartum: (6) Obesity, Class II, BMI 35-39.9, isolated: (7) Pulmonary embolus: QUALIFIERS: Pulmonary embolism type: other Chronicity: acute Acute cor pulmonale presence: without acute cor pulmonale Qualified Code(s): I26.99 - Other pulmonary embolism without acute cor pulmonale COMMENT: restart treatment after delivery. SAM briones on (8) Third trimester : (9) Anemia: COMMENT: has been on fe 07/01/251909 Cosigner Signature (if applicable): CC: Dr. Keyla Kay MD; No Primary Care Physician~ Signed [facility]08-27-2025 NoteHNO ID: [id number] Author: KEYLA KAY MD Service: ? Author Type: Physician Type: Progress Notes Filed: 06/25/2025 12:04 Note Text: NST SUMMARY PROVIDER ASSESSMENT AND INTERPRETATION Federica Figueroa is a 35 year old female, , who is at 38w2d with an CAROLYN of 07/07/2025, by Ultrasound dating method. Indications for NST: Obesity and Polyhydramnios Baseline: 135 Variability: Moderate Accelerations: Present 15 X 15 Decelerations: None Contractions: TOCO: None Interpretation: Reactive SIGNATURE: Keyla Kay [facility]08-27-2025 History of Present illness Narrative* Keyla Kay MD - 06/25/2025 12:03 PM EDT NST SUMMARY PROVIDER ASSESSMENT AND INTERPRETATION Federica Figueroa is a 35 year old female, , who is at 38w2d with an CAROLYN of 07/07/2025, by Ultrasound dating method. Indications for NST: Obesity and Polyhydramnios Baseline: 135 Variability: Moderate Accelerations: Present 15 X 15 Decelerations: None Contractions: TOCO: None Interpretation: Reactive SIGNATURE: Keyla Kay MD documented in [facility] encounterHol[facility] Progress note* Quick Notes - Keyla Kay MD - 06/25/2025 12:00 PM EDT RR- VB No. LOF No. CTXS few, rare Movement: present. Other c/o: No. Medication list reviewed. SENSITIVE EXAM: Sensitive exam not performed. Physical Exam See Flow Sheet Abd: soft, nontender, gravid Ext: edema: Trace A/P 38w2d Estimated Date of Delivery: 07/07/25 ASSESSMENT/PLAN: 1. Supervision of high risk in third trimester ([facility]) - ICD9: V23.9, ICD10: O09.93 (primary diagnosis) - URINE OB DIP B/O 2. Anemia complicating , third trimester ([facility]) - ICD9: 648.23, 285.9, ICD10: O99.013 cont. fe - URINE OB DIP B/O 3. Other obesity affecting in third trimester ([facility]) - ICD9: 649.13, 278.00, ICD10: O99.213, E66.89 nst today deliver at 39 weeks - URINE OB DIP B/O 4. Polyhydramnios in third trimester complication, single or unspecified fetus ([facility]) - ICD9: 657.03, ICD10: O40.3XX0 NST reactive - URINE OB DIP B/O 5. Pulmonary embolism affecting in third trimester ([facility]) - ICD9: 673.23, ICD10: O88.213 - cont. lovenox, hold for induction or prn if labor - URINE OB DIP B/O 6. Excessive growth, antepartum, single or unspecified fetus ([facility]) - ICD9: 656.63, ICD10: O36.60X0 plan induction 39 weeks, EFW < 5000 gm, - URINE OB DIP B/O 7. 38 weeks gestation of ([facility]) - ICD9: V22.2, ICD10: Z3A.38 - URINE OB DIP B/O Keyla Kay MD [facility]08-27-2025 Miscellaneous Notes* Quick Notes - Keyla Kay MD - 06/25/2025 12:00 PM EDT RR- VB No. LOF No. CTXS few, rare Movement: present. Other c/o: No. Medication list reviewed. SENSITIVE EXAM: Sensitive exam not performed. Physical Exam See Flow Sheet Abd: soft, nontender, gravid Ext: edema: Trace A/P 38w2d Estimated Date of Delivery: 07/07/25 ASSESSMENT/PLAN: 1. Supervision of high risk in third trimester ([facility]) - ICD9: V23.9, ICD10: O09.93 (primary diagnosis) - URINE OB DIP B/O 2. Anemia complicating , third trimester ([facility]) - ICD9: 648.23, 285.9, ICD10: O99.013 cont. fe - URINE OB DIP B/O 3. Other obesity affecting in third trimester ([facility]) - ICD9: 649.13, 278.00, ICD10: O99.213, E66.89 nst today deliver at 39 weeks - URINE OB DIP B/O 4. Polyhydramnios in third trimester complication, single or unspecified fetus ([facility]) - ICD9: 657.03, ICD10: O40.3XX0 NST reactive - URINE OB DIP B/O 5. Pulmonary embolism affecting in third trimester ([facility]) - ICD9: 673.23, ICD10: O88.213 - cont. lovenox, hold for induction or prn if labor - URINE OB DIP B/O 6. Excessive growth, antepartum, single or unspecified fetus ([facility]) - ICD9: 656.63, ICD10: O36.60X0 plan induction 39 weeks, EFW < 5000 gm, - URINE OB DIP B/O 7. 38 weeks gestation of ([facility]) - ICD9: V22.2, ICD10: Z3A.38 - URINE OB DIP B/O Keyla Kay MD documented in this encounterHol[facility]08[facility]27-[facility] Instructions* Patient Instructions* Taylor Tobias MA - 06/25/2025 11:20 AM EDT SEQUENTIAL SCREENINGS The [facility] offers sequential screenings for women who are interested in screenings for chromosomal abnormalities and certain defects during a . The sequential screen combinesultrasound and blood tests to determine the risk of chromosomal abnormalities, including Down's Syndrome (Trisomy 21) and Trisomy 18, as well as open neural tube defects including spina bifida. Ultrasound examination is performed between 11 weeks and 13 weeks gestational age. Blood tests are drawn after the ultrasound and again later in the between 15 and 21 weeks gestational age. Please let your physician know if you are interested in this testing. It will require an appointment withour battery service technician. This is not an ultrasound performed by a physician in our office during a routine visit. SIGNS AND SYMPTOMS OF LABOR 1. Contractions every 10 minutes or more often 2. Clear, pink, or brownish fluid (water) leaking from vagina 3. Feeling that baby is pushing down, pressure 4. Low, dull backache 5. Cramps that feel like a period 6. Cramps with or without diarrhea If you notice any of the above symptoms, contact our office at [phone] and ask to speak with anurse. After hours, you can call doctors registry at [phone] OR call [facility] at [phone] ask to have the doctor automation qa tester paged. If you consider this an emergency, dial [phone] or go to your nearest emergency department. NEED HELP? Are you dealing with a violent or abusive relationship? Are you a victim of rape or sexual assult? Call [facility] ([place]) 24 hour Crisis Hotline: 949.997.1447 or 978-345-5039. MANUAL Your Guide to a Healthy manual is now on-line. Visit [email or web address] to download your free copy documented in this encounterHolmes [facility]08-[facility]-2025 Note Indication Evaluation of growth. Maternal obesity, BMI >30. Polyhydramnios on prior ultrasound. Lovenox Impression REMOTE READ - Single, live, intrauterine . - presentation is cephalic. - The biometry is consistent with the assigned gestational dating. - The EFW is 3729 g, at the 87%. AC is at the >99%. - Amniotic fluid volume is normal amount with an MVP of 7.1 cm and NO of 19.7 cm. - The placenta is posterior, fundal. - No malformations visualized on a limited survey as detailed below. Recommendations Additional follow-up as clinically indicated. Maternal Assessment Height 157 cm Height (ft) 5 ft Height (in) 2 in Physical Exam Initial weight (lb) 195 lb Initial BMI 35.67 kg/m Method Transabdominal ultrasound examination Price . Number of fetuses: 1 Dating GA by prior assessment 38 w + 0 d CAROLYN by prior assessment: 07/07/2025 Previous Ultrasound on: 11/25/2024 Type of prior assessment: CRL U/S measurement at prior assessment date 16.6 mm GA by previous U/S 38 w + 0 d CAROLYN by previous Ultrasound: 07/07/2025 Ultrasound examination on: 06/23/2025 GA by U/S based upon: AC, BPD, Femur, HC GA by U/S 38 w + 2 d CAROLYN by U/S: 07/05/2025 Assigned: based on ultrasound (CRL), selected on 12/23/2024 Assigned GA 38 w + 0 d Assigned CAROLYN: 07/07/2025 General Evaluation Cardiac activity present. FHR 123 bpm. movements: present. Presentation: cephalic Placenta: Placental site: posterior, fundal Umbilical cord: Cord vessels: 3 vessel cord. Insertion site: normal insertion Amniotic fluid: Amount of AF: normal amount. MVP 7.1 cm. NO 19.7 cm. Q1 3.6 cm, Q2 7.1 cm, Q3 3.8 cm, Q4 5.2 cm Growth Overview Exam date GA BPD (mm) HC (mm) AC (mm) FL (mm) HL (mm) EFW (g) 02/17/2025 20w 0d 45.3 37% 175.9 52% 165.7 89% 32.9 73% 31.8 77% 382 88% 05/06/2025 31w 1d 80.6 76% 293.1 58% 300.4 98% 59.1 48% 2044 87% 06/03/2025 35w 1d 89.1 78% 324.1 61% 345.2 >99% 68.7 73% 3141 93% 06/23/2025 38w 0d 92.3 60% 336.6 54% 366 >99% 73 74% 3729 87% Biometry Standard BPD 92.3 mm 37w 3d 60% Hadlock OFD 119.4 mm -/- 73% Nicolaides HC 336.6 mm 38w 3d 54% David AC 366.0 mm 40w 4d >99% Hadlock Femur 73.0 mm 36w 6d 74% David EFW 3,729 g -/- 87% Hadlock EFW (lb) 8 lb EFW (oz) 4 oz EFW by: Hadlock (HC-AC-FL) Extended [employer]ike Courier 6.0 mm Extremities / Bony Struc FL / HC 0.22 Other Structures FHR 123 bpm Anatomy Lateral ventricles: normal Cavum septi pellucidi: normal Cerebellum: normal Cisterna magna: normal 4-chamber view: normal RVOT view: suboptimally visualized LVOT view: suboptimally visualized 3-vessel view: normal Heart / Thorax Situs: situs solitus (normal) Diaphragm: normal Stomach: normal Kidneys: normal Bladder: normal Gender: Unspecified Wants to know sex: no Performed By: Alba Pinto RDMS Read By: Katherine Moore M.D.MATERNAL [id number] Telephone encounter Note* Telephone Encounter - Norma Stallings RN - 06/23/2025 4:12 PM EDT Patient called and NST scheduled. Norma Stallings RN [facility]08-25-2025 Miscellaneous Notes* Telephone Encounter - Norma Stallings RN - 06/23/2025 4:12 PM EDT Patient called and NST scheduled. Norma Stallings RN * Telephone Encounter - Sheryl Bejarano APRN.CNM - 06/23/2025 3:57 PM EDT Patient did not have BPP completed. Can you please see if she can come in this week for an NST? I sincerely apologize and didn't realize it was not done. Thank you, Sheryl Bejarano APRN.CNM documented in this encounter[address]25-2025 Telephone encounter Note * Telephone Encounter - Sheryl Bejarano APRN.CNM - 06/23/2025 3:57 PM EDT Patient did not have BPP completed. Can you please see if she can come in this week for an NST? I sincerely apologize and didn't realize it was not done. Thank you, Sheryl Bejarano APRN.CNM [facility] Work Phone: [phone] NoteHNO ID: [id number] Author: SHERYL BEJARANO APRN.CNM Service: ? Author Type: Educational Aid Type: Progress Notes Filed: 06/23/2025 15:57 Note Text: 1d MARIPOSA-S: Federica Figueroa is a 35 year old female who presents at 36w1d with CAROLYN:07/07/2025, by Ultrasound for a routine visit. Denies headache, visual changes, chest pain, shortness of breath, vaginal bleeding, leakage of fluid, or dysuria. Feeling well, no complaints. O: See flow sheet Gen: No apparent distress Abd: Gravid, nontender ASSESSMENT/PLAN: 1. Supervision of high risk in third trimester -Continue PNV -Continue ASA 2. 36 weeks gestation of 3. Other obesity affecting in third trimester -3141 g, at the 93%. AC is at the >99%. -Follow up growth US 4. Anemia during in third trimester -hgb 8.7, IV iron infusion 5. Polyhydramnios in third trimester complication, single or unspecified fetus -NO 26 PTL precautions reviewed and when to call RTO in one week Sheryl Bejarano APRN.CNOhioHealth [facility]08-25-2025 NoteHNO ID: [id number] Author: SHERYL BEJARANO APRN.CNM Service: ? Author Type: Educational Aid Type: Progress Notes Filed: 06/23/2025 15:57 Note Text: MARIPOSA-S: Federica Figueroa is a 35 year old female who presents at 38 weeks with CAROLYN:07/07/2025, by Ultrasound for a routine visit. Denies headache, visual changes, chest pain, shortness of breath, vaginal bleeding, leakage of fluid, or dysuria. Feeling well, no complaints. O: See flow sheet Gen: No apparent distress Abd: Gravid, nontender Growth US, awaiting formal results SENSITIVE EXAMINATION CONSENT: The sensitive examination was discussed with the Patient or Patient's Authorized Payable Representative. As applicable, any other physician, advance practice provider, medical student, or other health professional student that will be observing or involved in the sensitive examination for educational or training purposes was discussed with the Patient or Authorized Payable Representative. The Patient or Authorized Payable Representative has agreed to proceed with the sensitive examination. ASSESSMENT/PLAN: 1. Supervision of high risk in third trimester -Continue PNV -Continue ASA IOL on 07/01/25 at 0700, osmin. Reviewed R/B/A. To stop Lovenox 24 hours prior to induction. 2. 38 weeks gestation of 3. Other obesity affecting in third trimester -Pregravid BMI 35 Weekly NSt 4. Anemia during in third trimester -IV iron infusions completed 5. Polyhydramnios in third trimester complication, single or unspecified fetus -NO 26, awaiting results today PTL precautions reviewed and when to call RTO in one week Sheryl Bejarano APRN.[facility]08-25-2025 History of Present illness Narrative* Sheryl Bejarano APRN.[facility] - 06/23/2025 2:57 PM EDT 1d MARIPOSA-S: Federica Figueroa is a 35 year old female who presents at 36w1d with CAROLYN:07/07/2025, by Ultrasound for a routine visit. Denies headache, visual changes, chest pain, shortness of breath, vaginalbleeding, leakage of fluid, or dysuria. Feeling well, no complaints. O: See flow sheet Gen: No apparent distress Abd: Gravid, nontender ASSESSMENT/PLAN: 1. Supervision of high risk in third trimester -Continue PNV -Continue ASA 2. 36 weeks gestation of 3. Other obesity affecting in third trimester -3141 g, at the 93%. AC is at the >99%. -Follow up growth US 4. Anemia during in third trimester -hgb 8.7, IV iron infusion 5. Polyhydramnios in third trimester complication, single or unspecified fetus -NO 26 PTL precautions reviewed and when to call RTO in one week Sheryl Bejarano APRN.CNM * Sheryl Bejarano APRN.CNM - 06/23/2025 2:57 PM EDT MARIPOSA-S: Federica Figueroa is a 35 year old female who presents at 38 weeks with CAROLYN:07/07/2025, by Ultrasound for a routine visit. Denies headache, visual changes, chest pain, shortness of breath, vaginalbleeding, leakage of fluid, or dysuria. Feeling well, no complaints. O: See flow sheet Gen: No apparent distress Abd: Gravid, nontender Growth US, awaiting formal results SENSITIVE EXAMINATION CONSENT: The sensitive examination was discussed with the Patient or Patient's Authorized Payable Representative. Asapplicable, any other physician, advance practice provider, medical student, or other health professional student that will be observing or involved in the sensitive examination for educational or training purposes was discussed with the Patient or Authorized Payable Representative. The Patient or Authorized Payable Representative has agreed to proceed with the sensitive examination. ASSESSMENT/PLAN: 1. Supervision of high risk in third trimester -Continue PNV -Continue ASA IOL on 07/01/25 at 0700, blas and gwendolyn. Reviewed R/B/A. To stop Lovenox 24 hours prior to induction. 2. 38 weeks gestation of 3. Other obesity affecting in third trimester -Pregravid BMI 35 Weekly NSt 4. Anemia during in third trimester -IV iron infusions completed 5. Polyhydramnios in third trimester complication, single or unspecified fetus -NO 26, awaiting results today PTL precautions reviewed and when to call RTO in one week Sheryl Bejarano APRN.CNM documented in this encounterHol[facility]08-25-20[facility] Instructions* Patient Instructions* Marco Antonio Ness LPN - 06/23/2025 2:38 PM EDT SEQUENTIAL SCREENINGS The [facility] offers sequential screenings for women who are interested in screenings for chromosomal abnormalities and certain defects during a . The sequential screen combinesultrasound and blood tests to determine the risk of chromosomal abnormalities, including Down's Syndrome (Trisomy 21) and Trisomy 18, as well as open neural tube defects including spina bifida. Ultrasound examination is performed between 11 weeks and 13 weeks gestational age. Blood tests are drawn after the ultrasound and again later in the between 15 and 21 weeks gestational age. Please let your physician know if you are interested in this testing. It will require an appointment withour battery service technician. This is not an ultrasound performed by a physician in our office during a routine visit. SIGNS AND SYMPTOMS OF LABOR 1. Contractions every 10 minutes or more often 2. Clear, pink, or brownish fluid (water) leaking from vagina 3. Feeling that baby is pushing down, pressure 4. Low, dull backache 5. Cramps that feel like a period 6. Cramps with or without diarrhea If you notice any of the above symptoms, contact our office at [phone] and ask to speak with anurse. After hours, you can call doctors registry at [phone] OR call [facility] at [phone] ask to have the doctor automation qa tester paged. If you consider this an emergency, dial 8-3-7 or go to your nearest emergency department. NEED HELP? Are you dealing with a violent or abusive relationship? Are you a victim of rape or sexual assult? Call [facility] ([place]) 24 hour Crisis Hotline: 984.622.9707 or 490-736-8459. MANUAL Your Guide to a Healthy manual is now on-line. Visit [email or web address] to download your free copy documented in this encounterHolmes [facility] Progress note* Quick Notes - Jamey Mcghee MD - 06/17/2025 2:30 PM EDT KJ - S: Federica denies LOF, contractions or vaginal bleeding. She feels well & denies complaints. O: 37w1d, see flow sheet SENSITIVE EXAM: Sensitive exam not performed. A/P: Assessment & Plan 37 weeks gestation of (HCC) Orders: URINE OB DIP B/O Group beta Strep positive Orders: URINE OB DIP B/O Anemia complicating , third trimester (HCC) S/p IV iron Orders: URINE OB DIP B/O Other obesity affecting in third trimester (HCC) Orders: URINE OB DIP B/O Polyhydramnios in third trimester complication, single or unspecified fetus (HCC) BS log reviewed & all normal. Orders: URINE OB DIP B/O Pulmonary embolism affecting in third trimester (HCC) Continue lovenox 100mg bid. Plan to stop 24hrs prior to IOL. Continue weekly NSTs Plan for IOL at 39 weeks Reviewed labor & FM precautions Jamey Mcghee MD [facility]08-19-2025 Miscellaneous Notes* Quick Notes - Jamey Mcghee MD - 06/17/2025 2:30 PM EDT KJ - S: Federica denies LOF, contractions or vaginal bleeding. She feels well & denies complaints. O: 37w1d, see flow sheet SENSITIVE EXAM: Sensitive exam not performed. A/P: Assessment & Plan 37 weeks gestation of (HCC) Orders: URINE OB DIP B/O Group beta Strep positive Orders: URINE OB DIP B/O Anemia complicating , third trimester ([facility]) S/p IV iron Orders: URINE OB DIP B/O Other obesity affecting in third trimester ([facility]) Orders: URINE OB DIP B/O Polyhydramnios in third trimester complication, single or unspecified fetus (HCC) BS log reviewed & all normal. Orders: URINE OB DIP B/O Pulmonary embolism affecting in third trimester ([facility]) Continue lovenox 100mg bid. Plan to stop 24hrs prior to IOL. Continue weekly NSTs Plan for IOL at 39 weeks Reviewed labor & FM precautions Jamey Mcghee MD documented in this encounterHolmes [facility]08-[facility]25 NoteHNO ID: [id number] Author: JAMEY MCGHEE MD Service: ? Author Type: Physician Type: Progress Notes Filed: 06/17/2025 14:35 Note Text: NST SUMMARY PROVIDER ASSESSMENT AND INTERPRETATION Federica Figueroa is a 35 year old female, , who is at 37w1d with an CAROLYN of 07/07/2025, by Ultrasound dating method. Indications for NST: Obesity and Polyhydramnios Baseline: 120 Variability: Moderate Accelerations: Present 15 X 15 Decelerations: None Contractions: TOCO: None Interpretation: Reactive SIGNATURE: Jamey Mcghee [facility]08-19-2025 History of Present illness Narrative* Jamey Mcghee MD - 06/17/2025 2:29 PM EDT NST SUMMARY PROVIDER ASSESSMENT AND INTERPRETATION Federica Figueroa is a 35 year old female, , who is at 37w1d with an CAROLYN of 07/07/2025, by Ultrasound dating method. Indications for NST: Obesity and Polyhydramnios Baseline: 120 Variability: Moderate Accelerations: Present 15 X 15 Decelerations: None Contractions: TOCO: None Interpretation: Reactive SIGNATURE: Jamey Mcghee MD documented in this encounterHolmes County [facility]08-19-2025 Instructions* Patient Instructions* Bird Dumont MA - 06/17/2025 1:34 PM EDT SEQUENTIAL SCREENINGS The [facility] offers sequential screenings for women who are interested in screenings for chromosomal abnormalities and certain defects during a . The sequential screen combinesultrasound and blood tests to determine the risk of chromosomal abnormalities, including Down's Syndrome (Trisomy 21) and Trisomy 18, as well as open neural tube defects including spina bifida. Ultrasound examination is performed between 11 weeks and 13 weeks gestational age. Blood tests are drawn after the ultrasound and again later in the between 15 and 21 weeks gestational age. Please let your physician know if you are interested in this testing. It will require an appointment withour battery service technician. This is not an ultrasound performed by a physician in our office during a routine visit. SIGNS AND SYMPTOMS OF LABOR 1. Contractions every 10 minutes or more often 2. Clear, pink, or brownish fluid (water) leaking from vagina 3. Feeling that baby is pushing down, pressure 4. Low, dull backache 5. Cramps that feel like a period 6. Cramps with or without diarrhea If you notice any of the above symptoms, contact our office at [phone] and ask to speak with anurse. After hours, you can call doctors registry at [phone] OR call [facility] at [phone] ask to have the doctor automation qa tester paged. If you consider this an emergency, dial 9--5 or go to your nearest emergency department. NEED HELP? Are you dealing with a violent or abusive relationship? Are you a victim of rape or sexual assult? Call [facility] ([place]) 24 hour Crisis Hotline: 833.313.3265 or 641-008-0529. MANUAL Your Guide to a Healthy manual is now on-line. Visit [email or web address] to download your free copy documented in this encounterHolmes County [facility]08-15-2025 NoteHNO ID: [id number] Author: KERRY PANIAGUA MD Service: ? Author Type: Physician Type: Progress Notes Filed: 06/13/2025 14:49 Note Text: Seen in ED with PE. Treated with Lovenox. Pr/cr elevated bu labs and BP normal. Sending with 24 hours urine to returned to [facility] lab 06/16/25. Has appointment with NST on 06/17[facility]08-15-2025 History of Present illness Narrative* Kerry Paniagua MD - 06/13/2025 2:46 PM EDT Seen in ED with PE. Treated with Lovenox. Pr/cr elevated bu labs and BP normal. Sending with 24 hours urine to returned to [facility] lab 06/16/25. Has appointment with NST on 06/17 documented in this encounterHolmes County [facility]08-15-2025 Discharge summary Author Gonzalez Barreto [facility] Note Date/Time June 13, 2025 12 :35pm [facility] Medical Records Department [address] [place] [address] Emergency Department Summary 06/13/25 MR#: [id number] Acct: [id number] Name: FEDERICA FIGUEROA ANGELIC Rep #:[id number] : 1990 35 From: Gonzalez Barreto MD PCP: Care Physician,No Primary Status :ADM IN Location: [place] [id number] HPI HPI - Female History of Present Illness Chief Complaint: Informant: patient and spouse/S.O. Pain Onset: Hours (2 hours prior to arrival abrupt onset of shortness of breath with chest discomfort.) Context: Sudden Onset Timing: Continuous Quality: Positive for - (Pleuritic) Location: - (Anterior chest) Current Severity: Mild Maximum Severity: Moderate Bleeding Issue: Negative for Vaginal bleeding, Passing clots or Passing tissue Associated Symptoms Associated Symptoms: Positive for Frequency; Negative for Dysuria, Urgency or Hematuria Test: Positive P: 1 Ab: 0 Narrative Narrative: Patient is a 35-year-old G2, P1 female who is 36 weeks gestation. She is followed through the [facility] OB department. She presents because abrupt onset shortness breath and chest pain that started 2 hours prior to arrival. I was asked see patient in triage. Patient is pale diaphoretic tachycardic. She is not hypotensive. She has no symptoms to suggest preeclampsia at this time. She denies headache, visual or auditory symptoms. Denies trouble speech or swallowing. She did have 1 episode of nausea and vomiting. She does have frequency otherwise negative review of systems. Patient had thrombectomy earlier this week by Dr. De Guzman for thrombosed hemorrhoid. Prior similar symptoms: No Recent Illness/Hospitalization: No PFSH PFSH Medical History Polyhydramnios Constipation Anemia Hemorrhoids Home Medications ?Medication ?Instructions ?Recorded ?Last Taken ?Type famotidine 20 mg tablet 20 mg PO BID 06/09/25 Unknow n History ferrous sulfate 325 mg (65 mg 325 mg PO Q OTHER DAY Unknown History iron) tablet Allergy/AdvReac Type Severity Reaction Status Date / Time No Known Allergies Allergy Verified 06/13/25 10:12 Social History Smoking Status: Never smoker alcohol intake: never substance use type: does not use ROS ROS ED Constitutional Constitutional ED: Denies chills, fever(s), subjective or sweats Eyes Eyes: Denies blurry vision or change in vision ENT ENT ED: Denies ear pain or rhinorrhea Cardiovascular Cardiovascular: Reports chest pain and racing heartbeat; Denies orthopnea, palpitations or paroxysmal nocturnal dyspnea Respiratory/Chest Respiratory/Chest: Reports dyspnea; Denies cough, dyspnea on exertion, orthopneaor paroxysmal nocturnal dyspnea Gastrointestinal Gastrointestinal: Reports nausea and vomiting; Denies abdominal pain, diarrhea or melena Genitourinary Genitourinary ED: Denies dysuria, hematuria or urinary frequency Musculoskeletal Musculoskeletal: Denies arthralgias, myalgias or neck pain Integumentary Denies rash Neurologic Neurologic: Denies headache(s), paresthesias or weakness Psychiatric Psychiatric: Reports anxiety; Denies depression Hematologic/Lymphatic Hematologic/Lymphatic: Reports easy bleeding and easy bruising EXAM Physical Exam Const Vital Signs: 06/13/25 10:09 06/13/25 11:08 06/13/25 12:00 Temperature 98.0 F Temperature Source Oral Pulse Rate 128 H 102 H 89 Respiratory Rate 16 17 16 Blood Pressure 132/89 H 125/76 H Blood Pressure Mean 103 92 Pulse Ox 98 96 97 Oxygen Delivery Method Room Air Room Air Room Air Positive well nourished and well developed Constitutional Narrative: BMI is 36.0. Patient appears pale. She is anxious. She is tachycardic. Patient is slightly diaphoretic. I was asked to see patient in triage because of her vitals and concern for pulmonary embolus and if patient was to be seen inED or L&D. General Appearance ED: well developed and pallor HEENT Reports moist mucous membranes HEENT Narrative: Head is atraumatic normocephalic. Ears normal. Nares patent Eyes PERRL and EOMs intact bilaterally General Eye ED: Negative for pale conjunctiva or scleral icterus Neck no lymphadenopathy, supple and no JVD Resp normal respiratory effort and clear to auscultation bilaterally Cardio regular rhythm, S1 normal heart sound, no murmurs and no JVD Rate: tachycardic GI GI Narrative: Fundal height is 2 cm inferior to the xiphoid process. There is no contractions. Extremity normal to inspection and full ROM General Extremety ED: Negative for edema General Extremity: Negative for edema Neuro oriented x3, CN's II-XII intact bilaterally and no sensory deficits noted Neuro Narrative: Patient has 2-3 beats of nonsustained clonus at the ankles. DTRs are 1-2+ and symmetric bicep, brachialis, patella and ankle. There is negative Babinski sign. Sensorium / Orientation: alert Motor Exam: strength 5/5 throughout Psych Mood & Affect: anxious Skin General Skin Exam: pallor MDM MDM MDM Narrative Medical decision making narrative: With abrupt onset of shortness of breath tachycardia third trimester need to evaluate for pulmonary embolus. Doubt pneumothorax. Doubt cardiac ischemia. Her symptoms are not consistent with preeclampsia since her blood pressure is slightly elevated. Will obtain CMP, CBC and CTA of the chest to evaluate for pulmonary embolus. Lab Data Attestation: I reviewed the patient's lab results. Lab results narrative: CBC is remarked for microcytic anemia. Comprehensive metabolic panel is unremarkable. Troponin is negative. BNP is normal. This was obtained to determine there was any evidence for of heart strain. Labs: Laboratory Results - last 24 hr 06/13/25 10:32 WBC 10.7 RBC 4.55 Hgb 10.8 L Hct 35.0 L MCV 76.9 L MCH 23.7 L MCHC 30.9 L RDW Std Deviation 73.7 H RDW Coeff of Shannon 28.7 H Plt Count 215 MPV 8.1 Immature Gran % (Auto) 0.500 Neut % (Auto) 92.0 H Lymph % (Auto) 5.1 L Campbell % (Auto) 2.1 Eos % (Auto) 0.1 Baso % (Auto) 0.2 Absolute Neuts (auto) 9.9 H Absolute Lymphs (auto) 0.55 L Nucleated RBC % 0 Differential Comment COMMENT Anisocytosis 1+ Sodium 136 Potassium 3.6 Chloride 103 Carbon Dioxide 18.3 L Anion Gap 14 BUN 5 Creatinine 0.46 L Estim Creat Clear Calc 201.67 Est GFR (MDRD) Non-Af 129 BUN/Creatinine Ratio 11.7 Glucose 75 Lactic Acid 1.4 Calcium 9.3 Total Bilirubin 0.43 AST 13 ALT < 5 Alkaline Phosphatase 90 Troponin T High Sens < 6 NT pro BNP II < 36 Total Protein 6.4 Albumin 3.5 Globulin 2.9 Albumin/Globulin Ratio 1.2 Radiography Diagnostic Testing: Clinical Impression(s) from Imaging Studies Chest CTA 06/13/25 10:20 IMPRESSION: Single nonocclusive intraluminal filling defect is seen in the proximal branch of the right interlobar pulmonary artery as seen on axial image number 97 and coronal image number 156 Reading Location: [facility]--[address] results. The commercial interior designer was contacted, Dr. Kerry Paniagua. She requested admission to labor and delivery. I informed herthat I ordered heparin however which she prefer Lovenox. She preferred Lovenox. This was discontinued and 1 mg/kg Lovenox was ordered. She will be admitted tolabor and delivery. EKG Initial EKG: Attestation: I personally reviewed and interpreted this EKG as follows: Interpretation: Sinus Tachycardia (Sinus tachycardia rate of 109 otherwisenormal. AL interval is under 36 ms QRS duration 6 6 ms. QT duration 2032 ms. Swatara is normal.) Management Discussion w/another healthcare provider: Funeral Service Practitioner/Embalmer (Spoke with Dr. Kerry Paniagua on-call for [facility]. Patient to be admitted to labor and delivery.) Treatment and Re-Evaluation Narrative: Patient and were informed of results. They were informed that she will be admitted to labor and delivery for observation and treated with Lovenox. Discharge Plan Triage Chief Complaint: ED Provider: Gonzalez Barreto Dx/Rx/DC Orders Clinical Impression: Pulmonary embolus, Sinus tachycardia seen on carburetor expert, Third trimester , Microcytic anemia, S/P hemorrhoidectomy Prescriptions: No Action ferrous sulfate 325 mg (65 mg iron) tablet 325 mg PO Q OTHER DAY famotidine 20 mg tablet 20 mg PO BID Primary Care Provider: Care Physician,No Primary Referrals: Care Physician,No Primary [Primary Care Provider] - Print Language: Mohawk Disposition Disposition: Acute Care Hospital [facility] What to do if you have Problems For any increased pain, shortness of breath, bleeding, nausea or vomiting, chestpain, or any unexpected problems, contact your Primary Care Provider. Call [facility] ([phone]) or report to the closest Emergency Room. Call 911 if necessary. 06/13/25 1235 <Electronically signed by Gonzalez Barreto MD> Cosigner Signature (if applicable): CC: No Primary Care Physician ~ Signed [facility] Work Phone: [phone] 365-722308-15-2025 Discharge summary [facility] Medical Records Department [address] [place] [address] Emergency Department Summary 06/13/25 MR#: [id number] Acct: [id number] Name: FEDERICA FIGUEROA MARCH Rep #:[id number] : 1990 35 From: Gonzalez Barreto MD PCP: Care Physician,No Primary Status :ADM IN Location: [place] [id number] HPI HPI - Female History of Present Illness Chief Complaint: Informant: patient and spouse/S.O. Pain Onset: Hours (2 hours prior to arrival abrupt onset of shortness of breath with chest discomfort.) Context: Sudden Onset Timing: Continuous Quality: Positive for - (Pleuritic) Location: - (Anterior chest) Current Severity: Mild Maximum Severity: Moderate Bleeding Issue: Negative for Vaginal bleeding, Passing clots or Passing tissue Associated Symptoms Associated Symptoms: Positive for Frequency; Negative for Dysuria, Urgency or Hematuria Test: Positive P: 1 Ab: 0 Narrative Narrative: Patient is a 35-year-old G2, P1 female who is 36 weeks gestation. She is followed through the [facility] OB department. She presents because abrupt onset shortness breath and chest pain that started 2 hours prior to arrival. I was asked see patient in triage. Patient is pale diaphoretic tachycardic. She is not hypotensive. She has no symptoms to suggest preeclampsia at this time. She deniesheadache, visual or auditory symptoms. Denies trouble speech or swallowing. She did have 1 episode of nausea and vomiting. She does have frequency otherwise negative review of systems. Patient had thrombectomy earlier this week by Dr. De Guzman for thrombosed hemorrhoid. Prior similar symptoms: No Recent Illness/Hospitalization: No PFSH PFSH Medical History Polyhydramnios Constipation Anemia Hemorrhoids Home Medications ?Medication ?Instructions ?Recorded ?Last Taken ?Type famotidine 20 mg tablet 20 mg PO BID 06/09/25 Unknow n History ferrous sulfate 325 mg (65 mg 325 mg PO Q OTHER DAY Unknown History iron) tablet Allergy/AdvReac Type Severity Reaction Status Date / Time No Known Allergies Allergy Verified 06/13/25 10:12 Social History Smoking Status: Never smoker alcohol intake: never substance use type: does not use ROS ROS ED Constitutional Constitutional ED: Denies chills, fever(s), subjective or sweats Eyes Eyes: Denies blurry vision or change in vision ENT ENT ED: Denies ear pain or rhinorrhea Cardiovascular Cardiovascular: Reports chest pain and racing heartbeat; Denies orthopnea, palpitations or paroxysmal nocturnal dyspnea Respiratory/Chest Respiratory/Chest: Reports dyspnea; Denies cough, dyspnea on exertion, orthopneaor paroxysmal nocturnal dyspnea Gastrointestinal Gastrointestinal: Reports nausea and vomiting; Denies abdominal pain, diarrhea or melena Genitourinary Genitourinary ED: Denies dysuria, hematuria or urinary frequency Musculoskeletal Musculoskeletal: Denies arthralgias, myalgias or neck pain Integumentary Denies rash Neurologic Neurologic: Denies headache(s), paresthesias or weakness Psychiatric Psychiatric: Reports anxiety; Denies depression Hematologic/Lymphatic Hematologic/Lymphatic: Reports easy bleeding and easy bruising EXAM Physical Exam Const Vital Signs: 06/13/25 10:09 06/13/25 11:08 06/13/25 12:00 Temperature 98.0 F Temperature Source Oral Pulse Rate 128 H 102 H 89 Respiratory Rate 16 17 16 Blood Pressure 132/89 H 125/76 H Blood Pressure Mean 103 92 Pulse Ox 98 96 97 Oxygen Delivery Method Room Air Room Air Room Air Positive well nourished and well developed Constitutional Narrative: BMI is 36.0. Patient appears pale. She is anxious. She is tachycardic. Patient is slightly diaphoretic. I was asked to see patient in triage because of her vitals and concern for pulmonary embolus and if patient was to be seen inED or L&D. General Appearance ED: well developed and pallor HEENT Reports moist mucous membranes HEENT Narrative: Head is atraumatic normocephalic. Ears normal. Nares patent Eyes PERRL and EOMs intact bilaterally General Eye ED: Negative for pale conjunctiva or scleral icterus Neck no lymphadenopathy, supple and no JVD Resp normal respiratory effort and clear to auscultation bilaterally Cardio regular rhythm, S1 normal heart sound, no murmurs and no JVD Rate: tachycardic GI GI Narrative: Fundal height is 2 cm inferior to the xiphoid process. There is no contractions. Extremity normal to inspection and full ROM General Extremety ED: Negative for edema General Extremity: Negative for edema Neuro oriented x3, CN's II-XII intact bilaterally and no sensory deficits noted Neuro Narrative: Patient has 2-3 beats of nonsustained clonus at the ankles. DTRs are 1-2+ and symmetric bicep, brachialis, patella and ankle. There is negative Babinski sign. Sensorium / Orientation: alert Motor Exam: strength 5/5 throughout Psych Mood & Affect: anxious Skin General Skin Exam: pallor MDM MDM MDM Narrative Medical decision making narrative: With abrupt onset of shortness of breath tachycardia third trimester need to evaluate forpulmonary embolus. Doubt pneumothorax. Doubt cardiac ischemia. Her symptoms are not consistent withpreeclampsia since her blood pressure is slightly elevated. Will obtain CMP, CBC and CTA of the chest to evaluate for pulmonary embolus. Lab Data Attestation: I reviewed the patient's lab results. Lab results narrative: CBC is remarked for microcytic anemia. Comprehensive metabolic panel is unremarkable. Troponin is negative. BNP is normal. This was obtained to determine there was any evidence for of heart strain. Labs: Laboratory Results - last 24 hr 06/13/25 10:32 WBC 10.7 RBC 4.55 Hgb 10.8 L Hct 35.0 L MCV 76.9 L MCH 23.7 L MCHC 30.9 L RDW Std Deviation 73.7 H RDW Coeff of Shannon 28.7 H Plt Count 215 MPV 8.1 Immature Gran % (Auto) 0.500 Neut % (Auto) 92.0 H Lymph % (Auto) 5.1 L Campbell % (Auto) 2.1 Eos % (Auto) 0.1 Baso % (Auto) 0.2 Absolute Neuts (auto) 9.9 H Absolute Lymphs (auto) 0.55 L Nucleated RBC % 0 Differential Comment COMMENT Anisocytosis 1+ Sodium 136 Potassium 3.6 Chloride 103 Carbon Dioxide 18.3 L Anion Gap 14 BUN 5 Creatinine 0.46 L Estim Creat Clear Calc 201.67 Est GFR (MDRD) Non-Af 129 BUN/Creatinine Ratio 11.7 Glucose 75 Lactic Acid 1.4 Calcium 9.3 Total Bilirubin 0.43 AST 13 ALT < 5 Alkaline Phosphatase 90 Troponin T High Sens < 6 NT pro BNP II < 36 Total Protein 6.4 Albumin 3.5 Globulin 2.9 Albumin/Globulin Ratio 1.2 Radiography Diagnostic Testing: Clinical Impression(s) from Imaging Studies Chest CTA 06/13/25 10:20 IMPRESSION: Single nonocclusive intraluminal filling defect is seen in the proximal branch of the right interlobar pulmonary artery as seen on axial image number 97 and coronal image number 156 Reading Location: [facility] results. The commercial interior designer was contacted, Dr. Kerry Paniagua. She requested admission to labor and delivery. I informed herthat I ordered heparin however which she preferLovenox. She preferred Lovenox. This was discontinued and 1 mg/kg Lovenox was ordered. She will be a dmitted tolabor and delivery. EKG Initial EKG: Attestation: I personally reviewed and interpreted this EKG as follows: Interpretation: Sinus Tachycardia (Sinus tachycardia rate of 109 otherwisenormal. AL interval is under 36 ms QRS duration 6 6 ms. QT duration 2032 ms. Swatara is normal.) Management Discussion w/another healthcare provider: Funeral Service Practitioner/Embalmer (Spoke with Dr. Kerry Paniagua on-call for [facility]. Patient to be admitted to labor and delivery.) Treatment and Re-Evaluation Narrative: Patient and were informed of results. They were informed that she will be admitted to laborand delivery for observation and treated with Lovenox. Discharge Plan Triage Chief Complaint: ED Provider: Gonzalez Barreto Dx/Rx/DC Orders Clinical Impression: Pulmonary embolus, Sinus tachycardia seen on carburetor expert, Third trimester , Microcyticanemia, S/P hemorrhoidectomy Prescriptions: No Action ferrous sulfate 325 mg (65 mg iron) tablet 325 mg PO Q OTHER DAY famotidine 20 mg tablet 20 mg PO BID Primary Care Provider: Care Physician,No Primary Referrals: Care Physician,No Primary [Primary Care Provider] - Print Language: Mohawk Disposition Disposition: Acute Care Hospital [facility] What to do if you have Problems For any increased pain, shortness of breath, bleeding, nausea or vomiting, chestpain, or any unexpected problems, contact your Primary Care Provider. Call [facility] ([phone]) or report tothe closest Emergency Room. Call 911 if necessary. 06/13/25 1235 Cosigner Signature (if applicable): CC: No Primary Care Physician ~ Signed [facility]08-15-2025 Radiology Diagnostic study note [facility] Imaging Services [address] [place] [address] CTA Chest W/WO Contrast MR#: [id number] Acct: [id number] Name: FEDERICA FIGUEROA MARCH Rep #: [id number] : 1990 F 35 From: Chalo Voss MD PCP: Care Physician,No Primary Status: REG ER Study:CTA Chest W/WO Contrast Date of Exam: 06/13/25 Exam# [id number] Ordering Dr: Sofi Barreto MD PROCEDURE: CTA CHEST W/WO CONTRAST 06/13/2025 REASON FOR EXAM: ACUTE DYSPNEA, TACHYCARDIA, THIRD TRIMESTER PREGNA Patient is well shielded. TECHNIQUE: CTA CHEST W/WO CONTRAST Multiplanar Sagittal and Coronal images were obtained. 3D post processing was performed CONTRAST: Isovue 370 VOLUME: 100 mL One or more dose reduction techniques were used (e.g., Automated exposure control, adjustment of the mA and/or kV according to patient size, use of iterative reconstruction technique). RADIATION DOSE SUMMARY: CTDlvol: 22 mGy DLP: 436.13 mGycm COMPARISON: None FINDINGS: Hardware: None Lymph nodes: Small benign-appearing bilateral axillary lymph nodes. Heart: The heart is not enlarged. No coronary artery calcification is seen. Thoracic Aorta: No thoracic aortic aneurysm or dissection. Pulmonary Vessels: Tiny nonocclusive intraluminal filling defects seen in the proximal branch of the right interlobar artery as seen on coronal image number 156 and axial image number 97 Most Proximal Level of Embolus (if embolus present): Lungs and Airways: Lungs are clear. Pleura: No pleural effusion. Upper Abdomen: Diffuse fatty infiltration of the liver. Bones: Bone windows are unremarkable. CT/CTA Chest W/WO Contrast IMPRESSION: Single nonocclusive intraluminal filling defect is seen in the proximal branch of the right interlobar pulmonary artery as seen on axial image number 97 and coronal image number 156 Reading Location: [facility] CC: Dr. Gonzalez Barreto MD; No Primary Care Physician ~ Course Instructor: Signed [facility]08-15-2025 Telephone encounter Note* Telephone Encounter - Andrea Gaxiola RN - 06/13/2025 9:16 AM EDT Patient is 36w4d. States for the last hour Ijust don't feel right. Hx of anemia-finished infusions recently. Hx of asthma. States she is short of breath , seeing black and white spots, hands jesica, headaches that she rates a 5 on the pain scale, cramping and back pain. Denies any epigastric pain. Has not noted movement this morning. Baby was active last night. Discussed with Dr Paniagua-automation qa tester physician. Patient sent to hospital Charge nurse at [facility] notified. is home with patient and will drive her. Records faxed to [facility]. [facility]08-15-2025 Miscellaneous Notes* Telephone Encounter - Andrea Gaxiola RN - 06/13/2025 9:16 AM EDT Patient is 36w4d. States for the last hour Ijust don't feel right. Hx of anemia-finished infusions recently. Hx of asthma. States she is short of breath , seeing black and white spots, hands jesica, headaches that she rates a 5 on the pain scale, cramping and back pain. Denies any epigastric pain. Has not noted movement this morning. Baby was active last night. Discussed with Dr Paniagua-automation qa tester physician. Patient sent to hospital Charge nurse at [facility] notified. is home with patient and will drive her. Records faxed to [facility]. documented in this encounterHol[facility]08-[facility] Progress note* Quick Notes - Sheryl Bejarano APRN.CNM - 06/10/2025 4:55 PM EDT MARIPOSA-S: Federica Figueroa is a 35 year old female who presents at 36w1d with CAROLYN:07/07/2025, by Ultrasound for a routine visit. Denies headache, visual changes, chest pain, shortness of breath, vaginal bleeding, leakage of fluid, or dysuria. Feeling well, no complaints. O: See flow sheet Gen: No apparent distress Abd: Gravid, nontender ASSESSMENT/PLAN: 1. Supervision of high risk in third trimester -Continue PNV -Continue ASA 2. 36 weeks gestation of 3. Other obesity affecting in third trimester -3141 g, at the 93%. AC is at the >99%. -Follow up growth US 4. Anemia during in third trimester -hgb 8.7, IV iron infusion 5. Polyhydramnios in third trimester complication, single or unspecified fetus -NO 26 PTL precautions reviewed and when to call RTO in one week Sheryl Bejarano APRN.CNM [facility]08-12-2025 Miscellaneous Notes* Quick Notes - Shreyl Bejarano APRN.CNM - 06/10/2025 4:55 PM EDT MARIPOSA-S: Federica Figueroa is a 35 year old female who presents at 36w1d with CAROLYN:07/07/2025, by Ultrasound for a routine visit. Denies headache, visual changes, chest pain, shortness of breath, vaginal bleeding, leakage of fluid, or dysuria. Feeling well, no complaints. O: See flow sheet Gen: No apparent distress Abd: Gravid, nontender ASSESSMENT/PLAN: 1. Supervision of high risk in third trimester -Continue PNV -Continue ASA 2. 36 weeks gestation of 3. Other obesity affecting in third trimester -3141 g, at the 93%. AC is at the >99%. -Follow up growth US 4. Anemia during in third trimester -hgb 8.7, IV iron infusion 5. Polyhydramnios in third trimester complication, single or unspecified fetus -NO 26 PTL precautions reviewed and when to call RTO in one week Sheryl Bejarano APRN.CNM documented in this encounterHolmes [facility]08-12-[facility] Instructions* Patient Instructions* Jaun RomySANDER - 06/10/2025 11:17 AM EDT SEQUENTIAL SCREENINGS The [facility] offers sequential screenings for women who are interested in screenings for chromosomal abnormalities and certain defects during a . The sequential screen combinesultrasound and blood tests to determine the risk of chromosomal abnormalities, including Down's Syndrome (Trisomy 21) and Trisomy 18, as well as open neural tube defects including spina bifida. Ultrasound examination is performed between 11 weeks and 13 weeks gestational age. Blood tests are drawn after the ultrasound and again later in the between 15 and 21 weeks gestational age. Please let your physician know if you are interested in this testing. It will require an appointment withour battery service technician. This is not an ultrasound performed by a physician in our office during a routine visit. SIGNS AND SYMPTOMS OF LABOR 1. Contractions every 10 minutes or more often 2. Clear, pink, or brownish fluid (water) leaking from vagina 3. Feeling that baby is pushing down, pressure 4. Low, dull backache 5. Cramps that feel like a period 6. Cramps with or without diarrhea If you notice any of the above symptoms, contact our office at [phone] and ask to speak with anurse. After hours, you can call doctors registry at [phone] OR call [facility] at [phone] ask to have the doctor automation qa tester paged. If you consider this an emergency, dial 9--1 or go to your nearest emergency department. NEED HELP? Are you dealing with a violent or abusive relationship? Are you a victim of rape or sexual assult? Call [facility] ([place]) 24 hour Crisis Hotline: 560.226.7151 or 982-401-7155. MANUAL Your Guide to a Healthy manual is now on-line. Visit [email or web address] to download your free copy documented in this encounterHolmes [facility]08-[facility] Evaluation note* Diagnosis Onset Date Resolution Status Admit Date Thrombosed external hemorrhoid acute June 09, 2025 8:05am [facility] Work Phone: 1(324) 420-945008-11-2025 Evaluation note* Diagnosis Onset Date Resolution Status Admit Date Thrombosed external hemorrhoid acute June 09, 2025 8:05am 36 weeks gestation of acut e June 13, 2025 1:15pm Proteinuria affecting pregna ncy in third trimester acute June 13, 2025 1:15pm Pulmonary embolus acute June 13, 2025 1:15pm [facility] Work Phone: 1(573) 997-419608-11-2025 Evaluation note* Diagnosis Onset Date Resolution Status Admit Date Thrombosed external hemorrhoid resol suze June 09, 2025 8:05am Pulmonary embolus acute June 13, 2025 1:15pm 36 weeks gestation of resolved June 13 1:15pm Proteinuria affecting in third trimester resolved May ust 2024 1:15pm 39 weeks gestation of acute July 01 7:28am Anemia acute July 01, 2025 7:28am LGA (large for gestational age) fetus affecting management of mother acute July 012024 7:28am Maternal obesity affecting , antepartum acute July 01, 2025 7:28am Obesity, Class II, BMI 35-39.9, isolated acute July 01, 2025 7:28am Polyhydramnios affecting in third trimester acute Jun 7:28am Pulmonary embolus acute Septemb er 2024 7:28am Single live acute Septemb er 2024 7:28am Supervision of high risk in third trimester acute Jun 7:28am (spontaneous vaginal delivery) acute July 01 7:28am Third trimester acute July 01, 2025 7:28am [facility] Work Phone: 1(433) 605-247008-10-2025 Telephone encounter Note* Telephone Encounter - Naila Bourne RN - 06/08/2025 11:15 AM EDT Reason for call: Rectal pain Outcome: Conferenced to appointment center for scheduling Disposition See PCP Within 24 Hours Reason for Disposition MODERATE rectal pain (i.e., interferes with school, work, or sleep) 1. SYMPTOM: Rectal pain some itching yesterday 2. ONSET: Patient states she noticed hemorrhoid last night while trying to sleep states pain was keeping her awake 3. RECTAL PAIN: Moderate sharp pain with moving and consistent throbbing when not moving 4. RECTAL ITCHING: Mild rectal itching 5. CONSTIPATION: Last BM yesterday 6. CAUSE: Hemorrhoid 7. OTHER SYMPTOMS: Moderate pain, mild itching 8. : 35 wks 9. CAROLYN: 07/07/25 No Additional Information on file. Protocols Used - Rectal Dznosyxg-INWWO-RU Rectal Elmgpljc-QCGEW-QU [facility]08-10-2025 Miscellaneous Notes* Telephone Encounter - Naila Bourne RN - 06/08/2025 11:15 AM EDT Reason for call: Rectal pain Outcome: Conferenced to appointment center for scheduling Disposition See PCP Within 24 Hours Reason for Disposition MODERATE rectal pain (i.e., interferes with school, work, or sleep) 1. SYMPTOM: Rectal pain some itching yesterday 2. ONSET: Patient states she noticed hemorrhoid last night while trying to sleep states pain was keeping her awake 3. RECTAL PAIN: Moderate sharp pain with moving and consistent throbbing when not moving 4. RECTAL ITCHING: Mild rectal itching 5. CONSTIPATION: Last BM yesterday 6. CAUSE: Hemorrhoid 7. OTHER SYMPTOMS: Moderate pain, mild itching 8. : 35 wks 9. CAROLYN: 07/07/25 No Additional Information on file. Protocols Used - Rectal Kkcjjukp-MLLJR-NE Rectal Bbxtolry-BXXIO-RE documented in this encounterHolmes County [facility]08-05-2025 Note Indication Evaluation of growth Maternal obesity, BMI >35 Impression REMOTE READ 35 yo at 35w1d presenting for growth scan. Pregravid BMI 35. 1 hour GCT was normal. - Single, live, intrauterine . - presentation is cephalic. - The biometry is consistent with the assigned gestational dating. - The EFW is 3141 g, at the 93%. AC is at the >99%. - Amniotic fluid volume is mild polyhydramnios with an MVP of 8.3 cm and NO of 26.6 cm. - The placenta is posterior, fundal. - No malformations visualized on a limited survey as detailed below. Ultrasound Consultation On today's ultrasound, mild polyhydramnios was identified. Polyhydramnios is typically defined by an amniotic fluid index > 24 cm or a MVP > 8 cm. The leading diagnosis for increased fluid in the third trimester is idiopathic (i.e. normal variant). The differential diagnosis also includes maternal conditions such as diabetes mellitus or absence of swallowing which can be secondary to neurologic conditions or GI obstruction such as esophageal atresia or duodenal atresia. There is no evidence of any structural abnormalities on ultrasound. Given the AC > 99%ile and mild polyhydramnios it is reasonable to reassess for GDM by performing fingersticks (fasting and 1 hour postprandial) for 1 week. If primarily normal (fasting < 95; 1 hour postprandial < 140), then growth scan should be repeated in 3-4 weeks if undelivered. If elevated, then she should follow up for management of empiric GDM. Will communicate with primary provider. Recommendations As above. Maternal Assessment Height 157 cm Height (ft) 5 ft Height (in) 2 in Physical Exam Initial weight (lb) 195 lb Initial BMI 35.67 kg/m Maternal assessment other: 2 Para 1 REMOTE READ Method Transabdominal ultrasound examination Price . Number of fetuses: 1 Dating GA by prior assessment 35 w + 1 d CAROLYN by prior assessment: 07/07/2025 Previous Ultrasound on: 11/25/2024 Type of prior assessment: CRL U/S measurement at prior assessment date 16.6 mm GA by previous U/S 35 w + 1 d CAROLYN by previous Ultrasound: 07/07/2025 Ultrasound examination on: 06/03/2025 GA by U/S based upon: AC, BPD, Femur, HC GA by U/S 36 w + 2 d CAROLYN by U/S: 06/29/2025 Assigned: based on ultrasound (CRL), selected on 12/23/2024 Assigned GA 35 w + 1 d Assigned CAROLYN: 07/07/2025 General Evaluation Cardiac activity present. FHR 125 bpm. movements: present. Presentation: cephalic Placenta: Placental site: posterior, fundal Umbilical cord: Cord vessels: 3 vessel cord Amniotic fluid: Amount of AF: mild polyhydramnios. MVP 8.3 cm. NO 26.6 cm. Q1 4.6 cm, Q2 8.3 cm, Q3 6.2 cm, Q4 7.5 cm Growth Overview Exam date GA BPD (mm) HC (mm) AC (mm) FL (mm) HL (mm) EFW (g) 02/17/2025 20w 0d 45.3 37% 175.9 52% 165.7 89% 32.9 73% 31.8 77% 382 88% 05/06/2025 31w 1d 80.6 76% 293.1 58% 300.4 98% 59.1 48% 2044 87% 06/03/2025 35w 1d 89.1 78% 324.1 61% 345.2 >99% 68.7 73% 3141 93% Biometry Standard BPD 89.1 mm 36w 0d 78% Hadlock OFD 113.9 mm 35w 3d 58% Nicolaides HC 324.1 mm 35w 6d 61% David AC 345.2 mm 38w 3d >99% Hadlock Femur 68.7 mm 34w 6d 73% David EFW 3,141 g 37w 4d 93% Hadlock EFW (lb) 6 lb EFW (oz) 15 oz EFW by: Hadlock (HC-AC-FL) Extended [employer]ike [employer]ourier 6.7 mm Extremities / Bony Struc FL / HC 0.21 Other Structures FHR 125 bpm Anatomy Lateral ventricles: normal Cavum septi pellucidi: normal Cerebellum: normal Cisterna magna: normal 4-chamber view: normal RVOT view: normal LVOT view: normal 3-vessel view: normal Heart / Thorax Situs: situs solitus (normal) Diaphragm: normal Stomach: normal Kidneys: normal Bladder: normal Gender: Unspecified Wants to know sex: no Performed By: Norma Logan RDMS, RVT Read By: Lesley Petit MD.MATERNAL [id number] Progress note* Quick Notes - Christian Contreras MD - 06/03/2025 8:37 AM EDT DM-Pt doing well. Denies vaginal Bleeding, Leaking fluid, or regular Contractions. Pt reports good movement Physical Exam: Gen: female in no apparent distress Abd: soft, Gravid. Non tender to palpation. See flow sheet @ 35.1 weeks Assessment & Plan Supervision of high risk in third trimester (HCC) Orders: URINE OB DIP B/O Anemia during in third trimester (HCC) Continue IV iron Other obesity affecting in third trimester ([facility]) Growth us pending today Orders: URINE OB DIP B/O 35 weeks gestation of ([facility]) Kick counts and labor reviewed RTO weekly Orders: URINE OB DIP B/O Christian De Souza MD [facility]08-05-2025 Miscellaneous Notes* Quick Notes - Christian Contreras MD - 06/03/2025 8:37 AM EDT DM-Pt doing well. Denies vaginal Bleeding, Leaking fluid, or regular Contractions. Pt reports good movement Physical Exam: Gen: female in no apparent distress Abd: soft, Gravid. Non tender to palpation. See flow sheet @ 35.1 weeks Assessment & Plan Supervision of high risk in third trimester (HCC) Orders: URINE OB DIP B/O Anemia during in third trimester ([facility]) Continue IV iron Other obesity affecting in third trimester ([facility]) Growth us pending today Orders: URINE OB DIP B/O 35 weeks gestation of ([facility]) Kick counts and labor reviewed RTO weekly Orders: URINE OB DIP B/O Christian De Souza MD documented in this encounterHolmes [facility]08-05-2025 Instructions* Patient Instructions* Bird Dumont MA - 06/03/2025 8:06 AM EDT SEQUENTIAL SCREENINGS The [facility] offers sequential screenings for women who are interested in screenings for chromosomal abnormalities and certain defects during a . The sequential screen combinesultrasound and blood tests to determine the risk of chromosomal abnormalities, including Down's Syndrome (Trisomy 21) and Trisomy 18, as well as open neural tube defects including spina bifida. Ultrasound examination is performed between 11 weeks and 13 weeks gestational age. Blood tests are drawn after the ultrasound and again later in the between 15 and 21 weeks gestational age. Please let your physician know if you are interested in this testing. It will require an appointment withour battery service technician. This is not an ultrasound performed by a physician in our office during a routine visit. SIGNS AND SYMPTOMS OF LABOR 1. Contractions every 10 minutes or more often 2. Clear, pink, or brownish fluid (water) leaking from vagina 3. Feeling that baby is pushing down, pressure 4. Low, dull backache 5. Cramps that feel like a period 6. Cramps with or without diarrhea If you notice any of the above symptoms, contact our office at [phone] and ask to speak with anurse. After hours, you can call doctors registry at [phone] OR call [facility] at [phone] ask to have the doctor automation qa tester paged. If you consider this an emergency, dial 9-1-5 or go to your nearest emergency department. NEED HELP? Are you dealing with a violent or abusive relationship? Are you a victim of rape or sexual assult? Call [facility] ([facility] 24 hour Crisis Hotline: 447.899.7753 or 759-871-4502. MANUAL Your Guide to a Healthy manual is now on-line. Visit [email or web address] to download your free copy documented in this encounterHolmes [facility]07-22-2025 Progress note* Quick Notes - Jamey Mcghee MD - 05/20/2025 10:57 AM EDT BELLE - S: Federica denies LOF, contractions or vaginal bleeding. O: 33w1d, see flow sheet SENSITIVE EXAM: Sensitive exam not performed. A/P: Assessment & Plan Supervision of high risk in third trimester (HCC) Other obesity affecting in third trimester (HCC) Growth US in 2 weeks. Antepartum anemia, third trimester (HCC) Heme visit today and will start IV iron. 33 weeks gestation of (HCC) Reviewed PTL & FM precautions. Jamey Mcghee MD [facility]07-22-2025 Miscellaneous Notes* Quick Notes - Jamey Mcghee MD - 05/20/2025 10:57 AM EDT KJ - S: Federica denies LOF, contractions or vaginal bleeding. O: 33w1d, see flow sheet SENSITIVE EXAM: Sensitive exam not performed. A/P: Assessment & Plan Supervision of high risk in third trimester (HCC) Other obesity affecting in third trimester (HCC) Growth US in 2 weeks. Antepartum anemia, third trimester (HCC) Heme visit today and will start IV iron. 33 weeks gestation of (HCC) Reviewed PTL & FM precautions. Jamey Mcghee MD documented in this encounterHolmes County [facility]07-22-2025 Instructions* Patient Instructions* Taylor Tobias MA - 05/20/2025 10:48 AM EDT SEQUENTIAL SCREENINGS The [facility] offers sequential screenings for women who are interested in screenings for chromosomal abnormalities and certain defects during a . The sequential screen combinesultrasound and blood tests to determine the risk of chromosomal abnormalities, including Down's Syndrome (Trisomy 21) and Trisomy 18, as well as open neural tube defects including spina bifida. Ultrasound examination is performed between 11 weeks and 13 weeks gestational age. Blood tests are drawn after the ultrasound and again later in the between 15 and 21 weeks gestational age. Please let your physician know if you are interested in this testing. It will require an appointment withour battery service technician. This is not an ultrasound performed by a physician in our office during a routine visit. SIGNS AND SYMPTOMS OF LABOR 1. Contractions every 10 minutes or more often 2. Clear, pink, or brownish fluid (water) leaking from vagina 3. Feeling that baby is pushing down, pressure 4. Low, dull backache 5. Cramps that feel like a period 6. Cramps with or without diarrhea If you notice any of the above symptoms, contact our office at [phone] and ask to speak with anurse. After hours, you can call doctors registry at [phone] OR call [facility] at [phone] ask to have the doctor automation qa tester paged. If you consider this an emergency, dial 9-6 or go to your nearest emergency department. NEED HELP? Are you dealing with a violent or abusive relationship? Are you a victim of rape or sexual assult? Call [facility] ([place]) 24 hour Crisis Hotline: 103.773.4597 or 700-693-2220. MANUAL Your Guide to a Healthy manual is now on-line. Visit [email or web address] to download your free copy documented in this encounterHolmes County [facility]07-22-2025 Instructions* Patient Instructions* Yudi Ndiaye PA-C - 05/20/2025 8:50 AM EDT Images from the original note were not included. Summary of today's visit: - You have iron deficiency anemia and require IV iron infusions. - We are in the process of arranging IV iron infusions for you at [facility]. Once the clinic has processed the referral, someone will contact you to schedule appointments. Insurance preauthorization may be required and can take 7 - 14 days. Please call the infusion center directly at [phone] to schedule an appointment if you don't receive a call within a week. If you are taking an oral iron supplement, please stop taking while receiving IV treatment. You canresume the oral iron supplement as tolerated after the iron infusions have been completed. Details of your ordered iron infusion: IV iron, Venofer (iron sucrose) 200 mg x 5 doses has been ordered. Each treatment will last about 15-30 minutes. The first infusion may take longer due to observationperiod after receiving the iron infusion. There are no restrictions on eating or drinking, rather it is recommended that you eat and drink prior to each appointment. Side effects from iron infusion are rare but may include temporary metallic taste and low blood pressure. It is very rare to have flu-like symptoms for 4-6 hours after treatment. Report any side effects to the infusion nurses while you are at the infusion center. If you experience side effects after returning home, contact your provider for further instructions. If you experience dizziness, lightheadedness, fainting, shortness of breath or any other symptoms that are concerning to you, recommend to call 911 or proceed to the nearest emergency department for further evaluation and management. We will follow-up with repeat labs and virtual visit about 4 weeks after you have completed the iron infusions to monitor your response to the iron infusions and determine if further evaluation or management is needed. Please make sure to have your labs completed a few days prior to the appointmentto ensure results have finalized. See below for more information regarding iron deficiency anemia, IV Iron infusions and Iron Sucrose(Venofer). Please let me know if you have any questions. Anemia During You may have anemia during if a complete blood count (CBC) shows that your red blood cells, which carry oxygen through your body, are low. This can make you feel fatigued, dizzy, cold and out of breath. In most cases of anemia during , tweaks to your diet can put you on the rightpath. Overview What is anemia during ? Anemia is when you don t have enough red blood cells to carry oxygen throughout your body. When your body doesn t get enough oxygen from your blood, it can t function properly. A person who has anemia during is considered anemic. The red blood cells (RBCs) contain an important protein called hemoglobin. This protein holds oxygen and helps your red blood cells carry oxygen from your lungs to your body. It also helps carry carbon dioxide from your body to your lungs so you can breathe it out. To produce RBCs and hemoglobin, your body needs a consistent supply of iron and vitamins. Without that supply, your body won t produce enough hemoglobin to properly carry oxygen to your organs. It s common for women to become anemic during because they don t have enough iron and other vitamins. What are the types of anemia affecting women? There are more than 400 types of anemia. Some are more common during , including: Iron-deficiency anemia, from a lack of iron. Folate-deficiency anemia, from a lack of folic acid. Vitamin B12 deficiency anemia, from a lack of vitamin B12. Who is most likely to have anemia during ? Throughout , the amount of blood in your body increases by 20% to 30%. That means your body needs more iron for more red blood cells. You may be at higher risk for anemia during ifyou are: with multiples. Not consuming enough iron. Having blsh-jp-ueha pregnancies with minimal time between. Experiencing a heavy menstrual flow before . Vomiting often because of morning sickness. Is it normal to be anemic during ? Yes. Because blood volume increases during , mild anemia is normal. Iron deficiency is common in , with up to 52% of women in developing countries not getting enough iron. Severe anemia is not typical. Both mild and severe anemia, however, require treatment to protect the health of you and the fetus. How does anemia affect the baby during ? The developing fetus relies on you to get enough iron, vitamin B12 and folic acid. Anemia can affect the growth of the fetus, especially during the first trimester. If anemia goes untreated, your baby is at higher risk of having anemia after , which can lead to developmental problems. Also, anemia increases the risk of delivering your baby early and having a low-weight baby. Can anemia during cause miscarriage? No. Anemia during doesn t directly cause miscarriage, but severe anemia can cause complications. Symptoms and Causes What causes anemia during ? itself is a cause of anemia because of the increase in blood volume. Other causes of anemia during include not consuming enough iron, vitamin B12 or folic acid. Other common causes of anemia can also cause anemia during : Certain diseases, including sickle cell anemia and thalassemia. Donating blood. Heavy menstrual flow (before ). Ulcers and polyps. What are the symptoms of anemia during ? You may not notice any symptoms of mild anemia at first. Over time, you may feel: Fatigue. Cold. Shortness of breath. Other symptoms include: Dizziness or weakness. Fast heartbeat. Headache. Pale, dry or easily bruised skin. Sore tongue. Unintended movement in the lower leg (restless legs syndrome). Diagnosis and Tests How is anemia during diagnosed? A blood test called a complete blood count (CBC) can diagnose anemia. This blood test is often doneat one of your first appointments. Your healthcare provider uses the CBC to analyze: How many red blood cells you have, their size and shape (which can indicate certain conditions likesickle cell anemia). How much iron your body has stored. If you are low in vitamins B12 and B9. What is considered severe anemia during ? Severe anemia is when results of the CBC show hemoglobin that s 6.5 to 7.9 grams per deciliter (g/dL). If your results show you have severe anemia, your provider may do a blood transfusion, most likely in an outpatient setting. A blood transfusion will give you a healthy amount of red blood cells. Management and Treatment How is anemia treated in ? Treatment for anemia during depends on the severity. If you have: Mild to moderate anemia: Your provider will usually treat it with a daily vitamin or iron supplement. This gives your body healthy amounts of iron, vitamin B12 and folic acid. Severe anemia: You may need a blood transfusion. How can I treat anemia at home while ? The best way to treat the most common types of anemia is to make sure you re getting enough iron, B12 and folic acid. Take a vitamin every day. Talk to your healthcare provider about which vitamin they recommend. Diet changes can help, too. Eat more foods that are high in iron like spinach, lean beef and turkey. Foods that are high in vitamins that help your body absorb iron (like vitamin C) are important as well, including citrus fruits, tomatoes and peppers. How soon after treatment for anemia during will I notice a change? If you have iron-deficiency, S08-dfhelymunb or folate-deficiency anemia, you should begin to feel better within a few days of taking a supplement. If you don t notice a change, talk to your provider. What does untreated anemia do to the body? Untreated anemia can get worse over time. Having too little oxygen in the blood can damage your organs. It also forces the heart to work harder, increasing the risk of: Arrhythmia (irregular heartbeat). Enlarged heart. Heart failure. Prevention How can I prevent anemia during ? The best thing you can do for anemia prevention is to eat at least 30 milligrams (three servings) of iron each day. If you can t get that much iron in your diet, talk to your provider about taking aniron supplement. You should also take a vitamin daily. If possible, you should start taking vitamins before you get . Some vitamins don t have enough iron in them. So, talk to your healthcare provider to determine which type of vitamin is best for you. Keep in mind that you can do all the right things and still get mild anemia during . That s because of the natural increase in blood volume. If you feel tired, dizzy or have any other symptoms, talk to your provider. [place] / Prognosis What is the outlook for someone with anemia during ? If treated, the outlook for someone with anemia during is very good. You can easily treatthis condition with supplements and minor diet adjustments. After you give , your blood volumeand plasma levels should go back to normal. When should I worry about anemia during ? Talk to your provider if you experience signs of anemia: Dizziness. Headaches. Fast heartbeat. Pale skin. Sore tongue. Unintended movement in your lower legs. If you re worried, ask your provider about testing for anemia and what you can do to maintain healthy red blood cell levels throughout your . How do I take care of myself when I have anemia during ? The best way to care for yourself when you have anemia is to try and eat a healthy, iron-rich diet.Get plenty of rest and drink lots of fluids. Take a vitamin and/or iron supplement. Talk to your provider about the best supplement for you. A note from [facility] You may be slightly anemic during because blood volume increases by 20% to 30%. Keeping your diet rich in iron, vitamin C and B vitamins helps correct and prevent anemia. Taking a daily vitamin can help, too. Talk to your provider about your risk of anemia during and any concerns you may have. Information obtained from: [facility] ([email or web address]). References Lamberto Russell MM. The impact of maternal iron deficiency and iron deficiency anemia on child's health (https://www.ncbi.nlm.nih.gov/pmc/articles/PVA4895261/). [place] Med J. 2015;36(2):146-149. Accessed 03/24/2022. [place] [employer]. Peptic Ulcer Disease (https://gi.org/topics/rhjlmf-drwfv-jibuibc/). Accessed 03/24/2022. [place] [employer]. Anemia During (https://americanpregnancy.org/healthy-pregn francisca/-concerns/itxdgg-mllahx-sxgpdnqwo/). Accessed 03/24/2022. [place] [employer]emat[employer]. Anemia and (https://www.hematology.org/education/patients/anemia/). Accessed 03/24/2022. Aliya MLidia. Chronic Anemia (https://www.ncbi.nlm.nih.gov/books/JMN485851/). [Updated 2020Jun 09]. In: [employer] [Internet]. [facility]): Press; 2020. Accessed 03/24/2022. [employer]. Anemia (https://www.marchofdimes.org/complications/anemia.aspx). Accessed 03/24/2022. National [place] of Diabetes and Digestive and Kidney Diseases. Symptoms & Causes of Colon Polyps (https://www.niddk.nih.gov/health-information/digestive-diseases/colon-polyps/sy mptoms-causes).Accessed 03/24/2022. Iron-Deficiency Anemia Iron-deficiency anemia is a common blood disorder that affects your red blood cells. Symptoms tend to develop over time and may include fatigue, shortness of breath or a racing heart rate. Healthcareproviders treat iron-deficiency anemia with iron supplements or infusions and by addressing any underlying health conditions. Overview Iron-deficiency anemia happens when there aren t enough healthy red blood cells to carry oxygen throughout your body. What is iron-deficiency anemia? Iron-deficiency anemia is a common blood disorder that affects your red blood cells. It s the most common form of anemia. It happens when there s a lack of iron in your blood, usually caused by bleeding. When you don t have enough iron, your bone marrow can t make hemoglobin, the molecule in your red blood cells that carries oxygen in your blood. And when you don t have enough hemoglobin, your blood can t carry oxygen throughout your body. As a result, you might feel tired. You may notice pale skin and cold hands and feet. Iron-deficiency anemia can also make you feel dizzy or lightheaded. Occasionally, it can cause chest pain, a fast heartbeat and shortness of breath. Or it can cause you to crave non-food items like ice, dirt or paper. These are all signs of iron-deficiency anemia. The good news is that treatment can help iron-deficiency anemia. Your healthcare provider can design a plan tailored to your needs. Stages of iron-deficiency anemia Normally, your body absorbs iron from the foods you eat. Your body stores iron so it s available tomake hemoglobin. Iron-deficiency anemia develops when your body uses the iron stores faster than they can be replaced, or when the flow of iron into your system slows. This occurs in three stages: First stage. Iron stores decrease. Your low iron supply hasn t affected your red blood cells yet. Second stage. When iron stores are low, your body alters the way it processes red blood cells. Yourbone marrow makes red blood cells without enough hemoglobin. Third stage. Hemoglobin drops below the normal range. You may develop signs of iron-deficiency anemia. Symptoms and Causes What are the symptoms of iron-deficiency anemia? Iron-deficiency anemia symptoms usually start out mild but worsen over time. They can include: Fatigue Headaches Irritability Muscle cramps Pallor (pale skin) Pica Shortness of breath (dyspnea) Sore tongue Spoon-shaped fingernails and toenails (koilonychia) Tachycardia (fast heart rate) What causes iron-deficiency anemia? Causes of iron-deficiency anemia may include: Blood loss from your period or from gastrointestinal conditions like esophageal reflux disease, ulcerative colitis or Crohn s disease Malabsorption, in which iron can no longer be absorbed through your stomach (This is more common inpeople with celiac disease or in those who ve had weight loss surgery.) Not getting enough iron in the foods you eat Risk factors of iron-deficiency anemia Statistically, you re more likely to develop iron-deficiency anemia if you: Are or have recently given Breastfeed Donate blood frequently Have a history of major surgery (especially gastrointestinal or weight loss surgery) Menstruate (especially if you have heavy periods) What are the complications of this condition? Severe or untreated iron-deficiency anemia can lead to complications like: Brain fog Growth or developmental delays (in children) Heart conditions like enlarged heart or heart failure Restless legs syndrome Diagnosis and Tests How is iron-deficiency anemia diagnosed? Healthcare providers use blood tests to diagnose iron-deficiency anemia. In addition to measuring iron levels, they check your levels of ferritin and total iron-binding capacity (TIBC) to confirm that you have a deficiency. Your healthcare provider may run different lab tests depending on your situation. Management and Treatment How is iron-deficiency anemia treated? Healthcare providers use iron supplementation or replacement to treat iron- deficiency anemia. They do this with: Oral iron supplements: Capsules or tablets that you take by mouth Iron infusions: Iron that you receive intravenously (through a vein) Your healthcare provider can determine which type of iron-deficiency anemia treatment is right for you. Most importantly, they ll also try to figure out why you re low in iron so they can treat the underlying cause. Side effects of treatment Iron supplementation might cause a metallic taste in your mouth or gastrointestinal side effects like: Constipation Dark bowel movements Diarrhea Nausea and vomiting Tell your healthcare provider if you develop these side effects. They may be able to reduce them byadjusting your iron dosage or regimen. How soon after treatment will I feel better? It depends on the treatment you receive and how low your iron was to begin with. People who take iron supplements may notice a difference in about two to three weeks. If you have iron infusions, you might start to feel better a little sooner. Prevention Can iron-deficiency anemia be prevented? Yes, you may be able to prevent iron-deficiency anemia if it s detected and treated early enough. If you ve already developed iron-deficiency anemia, a healthcare provider can easily correct the condition with treatment. [place] / Prognosis What s the outlook for people with iron-deficiency anemia? The outlook is good with treatment, but your healthcare provider will need to address any underlying conditions that cause iron-deficiency anemia. Iron supplementation is only a temporary fix becauseit doesn t address the actual cause. Suddenly becoming iron-deficient might point to conditions like stomach ulcers or colon polyps. In some cases, it can be a sign of gastrointestinal cancer. It s important to figure out why you re iron-deficient so you can get the right treatment. How do I take care of myself? Here are some ways to make sure you re getting enough iron: Ask your healthcare provider about testing for iron. Eat iron-rich foods like beans, red meat, beef or chicken livers and dark leafy greens. See your provider for regular blood tests. Talk to your provider if you have conditions that cause blood loss (like heavy menstrual periods orgastrointestinal disorders). What should I eat with iron-deficiency anemia? You can increase your body s iron stores by eating an iron-rich diet. Here are some foods to consider: Animal proteins: Beef, poultry, eggs, liver and fish Breads and cereals: Whole wheat bread, enriched white bread, rye bread, bran cereals and cereals with wheat Fruits: Figs, dates and raisins Legumes: Peas, beans, tofu and tempeh Vegetables: Spinach, broccoli, string beans, dark leafy greens, potatoes, cabbage and tomatoes Can I get rid of iron-deficiency anemia naturally? Eating fortified, iron-rich foods is always a good idea. But it won t necessarily keep you from getting iron-deficiency anemia. If you have extremely low iron, you ll likely need to see a healthcare provider for recommendations regarding iron supplements or iron infusions. I follow a vegan or vegetarian diet. What should I do to boost my iron intake? If you follow a vegan or vegetarian diet, look for iron-fortified breads and cereals. There are several non-meat options for boosting your iron intake, like beans, tofu, dried fruits and dark leafy greens. You can also try iron supplements. Always talk to your healthcare provider before adding any supplement to your regimen. When should I see my healthcare provider? You should see your healthcare provider regularly so they can monitor your iron levels and your overall health. You might see your healthcare provider every three months for a year or longer if you re being treated for iron-deficiency anemia. You may also need to see another specialist like a utilities service investigator or material assembler if bleeding is determined to be the cause. What questions should I ask my healthcare provider? If you ve received an iron-deficiency anemia diagnosis, here are some questions you might want to ask your healthcare provider: What can you tell me about the iron levels in my blood? How severe is my condition? Do I need to see another specialist? What type of treatment will I need? How long will I need iron supplementation? What side effects should I expect? When will I start to feel better? A note from [facility] We all have days when our responsibilities outweigh the amount of energy we have. But if you have iron-deficiency anemia, you might not be able to shake those feelings of fatigue. Tell your healthcare provider if you re tired all the time. They can run tests to determine a cause and recommend appropriate treatment. Information obtained from [facility] (https://[email or web address]/health/[email or web address]) References [place] [employer] Hemat[employer]. Iron (https://www.hematology.org/education/patients/anemia/iron-deficiency)- (https://www.hematology.org/education/patients/anemia/iron-deficiency)Deficiency Anemia (https://www.hematology.org/education/patients/anemia/iron-deficiency). (https://www.hematology.org/education/patients/anemia/iron-deficiency) Accessed 10/09/2024. SeeClick[employer] Manual, Professional Version. Iron Deficiency Anemia (https://www.[employer]/professiona l/trswkrdkrz-ypl-xjmgyidk/wwjfbhj-dnmlko-vm-deficient-erythropoiesis/iron-defici ency-anemia). (https ://www.[employer]/professional/ufkyflarfs-fvm-spcpfvge/zrztfcq-yzqrwg-rr-d eficient-erythropoiesis/gvym-ydkrmouqpv-bdqwne) Last reviewed 03/2023. Accessed 10/09/2024. National Heart, Lung, and Blood [place] Iron (https://www.nhlbi.nih.gov/health/anemia/ntlv-qoydbffnbe-udwwjw)- (https://www.nhlbi.nih.gov/health/anemia/qzkh-gduhksmlsv-wyqyps)Deficiency Anem ia (https://www.nhlbi.nih.gov/health/anemia/lsam-rkklduwanx-fpypcn). (https://www.nhlbi.nih.gov/health/anemia/iopm-gwlzrwrucv-szfilf) Last updated 01/20/2022. Accessed 10/09/2024. Familia Carter. Iron Supplementation (https://www.ncbi.nlm.nih.gov/books/GAK518761/). (https://www .ncbi.nlm.nih.gov/books/CNL438064/) In: [employer] [Internet]. [place]): Press; 2023-. Accessed 10/09/2024. Iron Infusion Iron is one of the minerals in the human body. If you don t have enough iron, your body can t make hemoglobin, and you may develop anemia. One way of treating anemia is with intravenous iron, or an iron infusion, which is delivered into a vein through a needle to increase the levels of iron and hemoglobin in your body. Overview If you don t have enough iron in your body, an iron infusion can add iron through your vein. What is an iron infusion? An iron infusion is a way to receive iron through a small catheter in your vein. Intravenous (IV) iron supplementation is another name for this. A healthcare provider performs this procedure in a medical office or clinic. How common is an iron infusion? Getting iron through an infusion isn t as common as getting oral (by mouth) iron. Healthcare providers prescribe oral iron supplements first. That works for many people, but some people need to receive iron through an IV if their iron levels are very low. Why is an iron infusion done? People usually receive IV iron infusions because they can t take oral (by mouth) iron. These include people who: Have bleeding in their gastrointestinal tract (gut) and need to replace iron quickly. (Your body absorbs IV iron more rapidly than iron you swallow.) Have inflammatory bowel disease (diseases of the intestines that cause pain, diarrhea and weight loss), and can t take oral iron because it upsets their gastrointestinal tract. Are on dialysis and often lose blood during dialysis. In addition, these people are usually taking an erythropoietin-stimulating agent (CARLOS) and may need extra iron. Have iron-deficiency anemia and are having high blood loss surgery (> 500 milliliters) within the next two months and need to replace iron quickly. Have celiac disease (gluten intolerance). Have cancer and anemia and are taking an CARLOS. Have tried oral iron, but it didn t work well for them. Have a vascular condition that makes them lose a lot of blood. Need to increase their iron level quickly because of or severe anemia. What iron level requires an iron infusion? It depends on the reason you re taking it. Different conditions require different iron levels. A healthcare provider may give you an IV iron infusion sooner for one condition than another. How many iron infusions do you need? You may only need one dose of some iron infusions. With others, you ll need one or two doses over the course of several weeks until your iron level is where it should be. It can take two months to fix your iron level and correct anemia. Procedure Details What happens before an iron infusion? A healthcare provider will decide how much iron you need. They can calculate the dose you need based on your weight and how much hemoglobin you have. Be sure to tell your provider about: Your medical conditions. Allergies you have. Medications you take. Supplements you take without a prescription. What happens during an iron infusion? During an iron infusion, a provider will: Clean the area where the IV will go into the skin on your arm or hand. Put a needle into the vein they select. The needle has a plastic IV tube on one end to use later. Tape the IV to your arm so it doesn t move around. Hang the fluid bag on an IV stand. Start a machine that pumps the fluid into your vein. How long does an iron infusion take? An IV iron infusion can take 15 to 30 minutes. Depending on the type and amount of iron, infusions times can be longer. What should I expect after an iron infusion? A healthcare provider will monitor you for 30 minutes or more after your iron infusion. They do this to make sure you don t have a bad reaction. How quickly does an iron infusion work? It depends on your situation. Normally, it may take several days to a week after you start your iron supplement before you start to feel better. Continue to watch your symptoms and take note of side effects the iron infusion might cause. If you have any questions or concerns, talk to your healthcare provider. Risks / Benefits What are the advantages of an iron infusion? An iron infusion quickly brings your iron level up. Today s iron infusions work better than the ones in the past. Multiple studies have found that an iron infusion is more effective and more tolerable than the oral (by mouth) kind. They also rarely cause a major reaction. What are the side effects of an iron infusion? Iron infusion side effects are usually minimal, but may include: Bloating or swelling of your face, arms, hands, lower legs or feet. Dizziness, faintness or lightheadedness when getting up suddenly from a lying or sitting position. Gastrointestinal pains, including nausea, cramps or diarrhea. Problems with breathing. Constipation (difficulty pooping). Headache. Joint or muscle pain. Skin problems, including rash. Chest pain. Low blood pressure. Anaphylaxis (a severe reaction that can include difficulty breathing, itching or a rash over your entire body). Recovery and [place] How long does it take to recover from an iron infusion? People usually feel better a few days to a week after an iron infusion. When To Call the Doctor When should I see my healthcare provider? Contact your provider if you have side effects that you can t manage. A note from [facility] Taking iron supplements by mouth works for many people, but it may not be right for you. The good news is that iron infusions have come a long way. Today s medicines can deliver high doses of iron tanisha short amount of time -- usually without a bad reaction. Don t be afraid to ask questions about your iron infusion if there s anything that isn t clear. Information obtained from [facility] (https://[employer].[facility].HuStream/health/rubens atments/68605-zjlyxsbmnrh-[email or web address]) References [place] Society of Hematology. Iron-Deficiency Anemia (http://www.hematology.org/Patients/Anemia/Iron-Deficiency.aspx). Accessed 06/28/2023. Mahesh Main. Iron infusion and newer intravenous iron formulations (https://pubmed.ncbi.nlm.nih.gov/58878264/). Chin Med J (Engl). 2020;134(15):9851-1076. Published 2020March 26. Accessed 06/28/2023. SeeClickFix Manual Professional Version. Iron Deficiency Anemia (https://www.[employer]/professional /ybljyriiuv-pbh-mouvbnyn/vrmvxkw-phsezp-pk-deficient-erythropoiesis/iron-deficie ncy-anemia). Last revised 03/2023. Accessed 06/28/2023. National Heart, Lung, and Blood [place] (U.S.). Multiple pages reviewed. National Library of Medicine (U.S.). Dailymed. Ferumoxytol injection (https://dailymed.nlm.nih.gov/d ailymed/drugInfo.cfm?setid=[email or web address]&audience=consume r). Last revised 04/25/2022. Accessed 06/28/2023. [employer] Library of Medicine (U.S.). Dailymed. Monoferric -- ferric derisomaltose injection, solution (https://dailymed.StrongLoop.nih.gov/dailymed/drugInfo.cfm?wxwxm=[email or web address]-b22 f-z469warm32uj). Last revised 06/17/2022. Accessed 06/28/2023. Juan J T, Lavern C, Kevin WEIR, et al. Questions and answers on iron deficiency treatment selection and the use of intravenous iron in routine clinical practice (https://pubmed.ncbi.nlm.nih.gov/37630009/). Jeanne Med. 2020;53(1):274-285. Accessed 06/28/2023. Iron sucrose: Patient drug information What is this medication? IRON SUCROSE (EYE sangita OSCAR krose) treats low levels of iron (iron deficiency anemia) in people with kidney disease. Iron is a mineral that plays an important role in making red blood cells, which carry oxygen from your lungs to the rest of your body. This medicine may be used for other purposes; ask your health care provider or pharmacist if you have questions. COMMON BRAND NAME(S): Venofer What should I tell my care team before I take this medication? They need to know if you have any of these conditions: Anemia not caused by low iron levels Heart disease High levels of iron in the blood Kidney disease Liver disease An unusual or allergic reaction to iron, other medications, foods, dyes, or preservatives or trying to get Breast-feeding How should I use this medication? This medication is for infusion into a vein. It is given in a hospital or clinic setting. Talk to your care team about the use of this medication in children. While this medication may be prescribed for children as young as 2 years for selected conditions, precautions do apply. Overdosage: If you think you have taken too much of this medicine contact a poison control center or emergency room at once. NOTE: This medicine is only for you. Do not share this medicine with others. What if I miss a dose? It is important not to miss your dose. Call your care team if you are unable to keep an appointment. What may interact with this medication? Do not take this medication with any of the following: Deferoxamine Dimercaprol Other iron products This medication may also interact with the following: Chloramphenicol Deferasirox This list may not describe all possible interactions. Give your health care provider a list of all the medicines, herbs, non-prescription drugs, or dietary supplements you use. Also tell them if you smoke, drink alcohol, or use illegal drugs. Some items may interact with your medicine. What should I watch for while using this medication? Visit your care team regularly. Tell your care team if your symptoms do not start to get better or if they get worse. You may need blood work done while you are taking this medication. You may need to follow a special diet. Talk to your care team. Foods that contain iron include: whole grains/cereals, dried fruits, beans, or peas, leafy green vegetables, and organ meats (liver, kidney). What side effects may I notice from receiving this medication? Side effects that you should report to your care team as soon as possible: Allergic reactions--skin rash, itching, hives, swelling of the face, lips, tongue, or throat Low blood pressure--dizziness, feeling faint or lightheaded, blurry vision Shortness of breath Side effects that usually do not require medical attention (report to your care team if they continue or are bothersome): Flushing Headache Joint pain Muscle pain Nausea Pain, redness, or irritation at injection site This list may not describe all possible side effects. Call your doctor for medical advice about side effects. You may report side effects to FDA at 3-833-ELE-1527. Where should I keep my medication? This medication is given in a hospital or clinic and will not be stored at home. NOTE: This sheet is a summary. It may not cover all possible information. If you have questions about this medicine, talk to your doctor, pharmacist, or health care provider. Information obtained from [facility] ([email or web address]/[email or web address]) documented in this [facility] History of Present illness Narrative* Yudi Ndiaye PA-C - 05/20/2025 8:20 AM EDT [facility] DEPARTMENT OF PATIENT BLOOD MANAGEMENT INITIAL DISTANCE HEALTH VISIT I have communicated my name and active licensure. The patient's identity and physical location wereverified at the time of this visit. Patient or their legal healthcare sales representative has been informed of the risks and benefits of -- and alternatives to -- treatment through a remote evaluation and consents to proceed with the evaluation remotely. This is a virtual visit using [employer] Video Visit. It required patient- provider interaction for the medical decision making as documented below. PATIENT NAME: Federica Figueroa DATE OF SERVICE: May 20, 2025 REFERRING PROVIDER: Jamey Mcghee MD Subjective CHIEF COMPLAINT: I have always been anemic, but is worse during . HISTORY OF THE PRESENT ILLNESS: Federica Figueroa is a 35 year old female who has a past medical history of atopic eczema, depression, and PCOS and was referred to Blood Management for evaluation and management of anemia in and iron deficiency anemia. Risk factors for anemia: Reports: - ; 33w1d - History of anemia; suspected secondary to nutrition in childhood - History of menorrhagia prior to ; in 2017 had menstrual cycle that lasted for months; more recently normal Denies: - Family history of anemia, anticoagulation, EtOH use, cancer or chemotherapy, CKD, history of GIB,history of bariatric surgery or bowel resection, history of Crohn's disease, UC or Celiac disease, history of chronic diarrhea, restrictive diet, or NSAID use. 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; limiting activity - Shortness of breath exertion - Lightheadedness or dizziness; temporary with exertion; intermittent - Difficulty concentrating or brain fog - Chronic migraines; improved during - Restless legs; worse recently - Nausea and constipation with supplements - Reflux; Pepcid twice daily with good control; no reflux prior to - Menorrhagia prior to ; not current bleeding Denies: - Fever, chills, unexplained weight loss or gain, loss of appetite or early satiety - Pica and/or pagophagia - Shortness of breath at rest - Chest pain, tachycardia or palpitations - Brittle hair or nails - Abdominal pain, vomiting, diarrhea - Bleeding: epistaxis, hematemesis, hemoptysis, hematuria, vaginal bleeding, black/tarry stools, bloody stools, and BRBPR Patient reports prior iron supplementation; Ferrous sulfate 325 mg tablet (65 mg elemental iron) POevery other day and pre- vitamin including iron supplement PO daily. Patient with oral iron intolerance; worsening constipation and nausea from . Patient denies history of iron infusions or blood transfusions. Patient denies EtOH use. Lifetime nonsmoker. Lives in [place], [place]. 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 Independent with ADLs. Medical/Surgical History: PAST MEDICAL HISTORY Diagnosis Date Atopic eczema Depression PCOS (polycystic ovarian syndrome) No past surgical history on file. CURRENT MEDICATIONS: Current Outpatient Medications Medication Instructions ALBUTEROL INHALATION 2 inhalations, NEEDED famotidine (PEPCID) 20 mg, ORAL, 2 TIMES DAILY ferrous sulfate 325 mg, ORAL, EVERY OTHER DAY-AMB PNV no.95/ferrous fum/folic ac ( ORAL) 2 pieces of gum, DAILY Current medications that may affect iron absorption and/or blood loss: - Antacids (H2 receptor blockers, PPI) REVIEW OF SYSTEMS: Full ROS elicited today (May 20, 2025) and reported as negative except as documented in HPI. Objective VIDEO PHYSICAL EXAMINATION: (if done, performed via video enabled technology) GENERAL: alert and appropriate, in no distress, well-hydrated, well nourished, happy, smiling, interactive, and appears tired SKIN: no rash noted HEAD: normocephalic, no abnormality or lesion noted RESPIRATORY: breathing non-labored NEUROLOGIC: no facial droop, speech is clear and fluent and no obvious deficit Data Reviewed: WBC (k/uL) Date Value 05/06/2025 12.52 (H) RBC (m/uL) Date Value 05/06/2025 4.26 Hemoglobin (g/dL) Date Value 05/06/2025 8.7 (L) Hematocrit (%) Date Value 05/06/2025 29.3 (L) MCV (fL) Date Value 05/06/2025 68.8 (L) MCH (pg) Date Value 05/06/2025 20.4 (L) MCHC (g/dL) Date Value 05/06/2025 29.7 (L) RDW-CV (%) Date Value 05/06/2025 17.7 (H) Platelet Count (k/uL) Date Value 05/06/2025 263 MPV (fL) Date Value 05/06/2025 8.2 (L) Iron Date Value Ref Range Status 04/21/2025 25 (L) 41 - 186 ug/dL Final TIBC Date Value Ref Range Status 04/21/2025 >525 (H) 232 - 386 ug/dL Final Ferritin Date Value Ref Range Status 04/21/2025 6.4 (L) 14.7 - 205.1 ng/mL Final Transferrin Saturation Date Value Ref Range Status 04/21/2025 <4.8 (L) 15.0 - 57.0 % Final Latest Reference Range & Units 12/23/24 14:48 Hb A2 2.0 - 3.1 % 2.2 Hb Screen Review Reviewed by Shmuel Walker MD Hb A Percent 96.2 - 98.0 % 97.8 Abnormal Hb No abnormal hemoglobin identified. No abnormal hemoglobin identified. Interpretation (Hgb Evaluation) Hemoglobins were analyzed by capillary electrophoresis and CBC red cell parameters were reviewed. There is a normal capillary electrophoresis pattern with microcytic anemia. Ferritin testing remains in process and results will be reported separately. Correlation with the clinical findings is suggested. If iron deficiency is excluded, the possibility of alpha thalassemia trait could be considered. PCR studies for alpha thalassemia gene deletions may be useful in such a setting, if clinically indicated. Assessment & Plan Maternal iron deficiency anemia complicating , third trimester (HCC) - Patient referred to blood management for anemia in and iron deficiency anemia - Reviewed with patient extensive etiology for anemia including but not limited to nutritional deficiencies, hemolysis, hereditary conditions, secondary to other disease processes such as kidney disease or malignancy, or bone marrow etiology. - No prior nutritional workup; low suspicion for co-existing nutritional deficiencies given microcytic hypochromic nature of anemia; will check B12 and folate with post infusion labs to complete evaluation. - Hemoglobin cascade 12/23/24 negative. - Cannot evaluate for hemolysis or renal dysfunction; no recent CMP. - No prior TSH. Consider checking pending lab trends as uncontrolled hypothyroidism can be contributory to anemia. - No reported B symptoms. - Bone Marrow etiology reviewed with patient as well including MDS, MPN, and malignancies includingleukemias. No evidence of bone marrow dysfunction or indications for hematology referral at this time. Mild leukocytosis since 03/2025 labs; gradually improving; most likely gestational leukocytosis; continue to monitor and refer to hematology pending lab trends. - Most recent labs reviewed from 04/21/2025, labs consistent with iron deficiency anemia. - Ferritin 6.4, Iron 25, TIBC >525, TSAT <4.8%, and Hgb 8.7 g/dL - Reviewed with patient that iron deficiency occurs in several stages, first iron stores are depleted without causing anemia, which can then progress to anemia, initially normocytic with normal reticcount, followed by microcytic and hypochromic anemia. - Reviewed possible causes of iron deficiency. Patient's iron deficiency is secondary to and possible malabsorption secondary to PPI use (Pepcid BID during ). - History of prior oral iron supplementation with Ferrous sulfate 325 mg tablet (65 mg elemental iron) PO every other day and pre-ryen vitamin including iron supplement PO daily. Patient with intolerance and treatment failure. - Assess for the need to augment a patient s natural red blood cell production: - Symptomatic anemia - Blood transfusion avoidance - Iron depletion - Recommendations according to Blood Management patient care guidelines: - Per Ganzoni equation, 986 mg iron deficient utilizing pre- weight (88kg) and goal Hgb 11 g/dL - Therapy plan for Venofer (iron sucrose) 200 mg IV infusion x 5 doses was signed for [facility] [place] location. - Recommend to recheck labs (CBC, ferritin, iron+TIBC, B12, folate) 4 weeks after last infusion to ensure adequate response to IV iron supplementation. - Follow-up in 7 weeks with labs prior to review results, assess treatment response and determine next steps. All questions were answered to patient's satisfaction, who verbalized full understanding and was inagreement with the above plan. The patient will contact our office with any concerns or changes in condition. Thank you for allowing me to participate in this patient's care. Please do not hesitate to contact me with questions. I spent a total of 35 minutes on the date of the service which included preparing to see the patient, [id number] patient care, completing clinical documentation, counseling and educating the patient/family/caregiver, ordering medications, tests, or procedures, independently interpreting results (not separately reported), communicating results to the patient/family/caregiver, and care coordination (not separately reported) Yudi Ndiaye PA-C Department of Blood Management May 20, 2025 CC: Referring Provider: Jamey Mcghee MD documented in this encounterHol[facility] NoteHNO ID: [id number] Author: YUDI NDIAYE PA-C Service: ? Author Type: Physician Wealth Management Manager Type: Progress Notes Filed: 05/20/2025 08:54 Note Text: [facility] DEPARTMENT OF PATIENT BLOOD MANAGEMENT INITIAL DISTANCE HEALTH VISIT I have communicated my name and active licensure. The patient's identity and physical location were verified at the time of this visit. Patient or their legal healthcare sales representative has been informed of the risks and benefits of -- and alternatives to -- treatment through a remote evaluation and consents to proceed with the evaluation remotely. This is a virtual visit using [employer] Video Visit. It required patient-provider interaction for the medical decision making as documented below. PATIENT NAME: Federica Figueroa DATE OF SERVICE: May 20, 2025 REFERRING PROVIDER: Jamey Mcghee MD Subjective CHIEF COMPLAINT: I have always been anemic, but is worse during . HISTORY OF THE PRESENT ILLNESS: Federica Figueroa is a 35 year old female who has a past medical history of atopic eczema, depression, and PCOS and was referred to Blood Management for evaluation and management of anemia in and iron deficiency anemia. Risk factors for anemia: Reports: - ; 33w1d - History of anemia; suspected secondary to nutrition in childhood - History of menorrhagia prior to ; in 2017 had menstrual cycle that lasted for months; more recently normal Denies: - Family history of anemia, anticoagulation, EtOH use, cancer or chemotherapy, CKD, history of GIB, history of bariatric surgery or bowel resection, history of Crohn's disease, UC or Celiac disease, history of chronic diarrhea, restrictive diet, or NSAID use. 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; limiting activity - Shortness of breath exertion - Lightheadedness or dizziness; temporary with exertion; intermittent - Difficulty concentrating or brain fog - Chronic migraines; improved during - Restless legs; worse recently - Nausea and constipation with supplements - Reflux; Pepcid twice daily with good control; no reflux prior to - Menorrhagia prior to ; not current bleeding Denies: - Fever, chills, unexplained weight loss or gain, loss of appetite or early satiety - Pica and/or pagophagia - Shortness of breath at rest - Chest pain, tachycardia or palpitations - Brittle hair or nails - Abdominal pain, vomiting, diarrhea - Bleeding: epistaxis, hematemesis, hemoptysis, hematuria, vaginal bleeding, black/tarry stools, bloody stools, and BRBPR Patient reports prior iron supplementation; Ferrous sulfate 325 mg tablet (65 mg elemental iron) PO every other day and pre-ryne vitamin including iron supplement PO daily. Patient with oral iron intolerance; worsening constipation and nausea from . Patient denies history of iron infusions or blood transfusions. Patient denies EtOH use. Lifetime nonsmoker. Lives in [place], [place]. 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 Independent with ADLs. Medical/Surgical History: PAST MEDICAL HISTORY Diagnosis Date Atopic eczema Depression PCOS (polycystic ovarian syndrome) No past surgical history on file. CURRENT MEDICATIONS: Current Outpatient Medications Medication Instructions ALBUTEROL INHALATION 2 inhalations, NEEDED famotidine (PEPCID) 20 mg, ORAL, 2 TIMES DAILY ferrous sulfate 325 mg, ORAL, EVERY OTHER DAY-AMB PNV no.95/ferrous fum/folic ac ( ORAL) 2 pieces of gum, DAILY Current medications that may affect iron absorption and/or blood loss: - Antacids (H2 receptor blockers, PPI) REVIEW OF SYSTEMS: Full ROS elicited today (May 20, 2025) and reported as negative except as documented in HPI. Objective VIDEO PHYSICAL EXAMINATION: (if done, performed via video enabled technology) GENERAL: alert and appropriate, in no distress, well-hydrated, well nourished, happy, smiling, interactive, and appears tired SKIN: no rash noted HEAD: normocephalic, no abnormality or lesion noted RESPIRATORY: breathing non-labored NEUROLOGIC: no facial droop, speech is clear and fluent and no obvious deficit Data Reviewed: WBC (k/uL) Date Value 05/06/2025 12.52 (H) RBC (m/uL) Date Value 05/06/2025 4.26 Hemoglobin (g/dL) Date Value 05/06/2025 8.7 (L) Hematocrit (%) Date Value 05/06/2025 29.3 (L) MCV (fL) Date Value 05/06/2025 68.8 (L) MCH (pg) Date Value 05/06/2025 20.4 (L) MCHC (g/dL) Date Value 05/06/2025 29.7 (L) RDW-CV (%) Date Value 05/06/2025 17.7 (H) Platelet Count (k/uL) Date Value 05/06/2025 263 MPV (fL) Date Value 05/06/2025 8.2 (L) Iron Date Value Ref Range Status 04/21/2025 25 (L) 41 - 186 ug/dL Final TIBC Date Value Ref Range Status 04/21/2025 >525 (more content not included)...[facility] 05-06-2025 Note Indication Evaluation of growth Maternal obesity, BMI >35 Impression - Single, live, intrauterine . - presentation is cephalic. - The biometry is consistent with the assigned gestational dating. - The EFW is 2044 g, at the 87%. AC is at the 98%. - The amniotic fluid volume is normal amount with an MVP of 5.7 cm and an NO of 21.6 cm. - The placenta is anterior, fundal. - No malformations visualized on a limited survey as detailed below. Recommendations Growth in four weeks Maternal Assessment Height 157 cm Height (ft) 5 ft Height (in) 2 in Physical Exam Initial weight (lb) 195 lb Initial BMI 35.67 kg/m Maternal assessment other: 2 Para 1 REMOTE READ Method Transabdominal ultrasound examination Price . Number of fetuses: 1 Dating GA by prior assessment 31 w + 1 d CAROLYN by prior assessment: 07/07/2025 Previous Ultrasound on: 11/25/2024 Type of prior assessment: CRL U/S measurement at prior assessment date 16.6 mm GA by previous U/S 31 w + 1 d CAROLYN by previous Ultrasound: 07/07/2025 Ultrasound examination on: 05/06/2025 GA by U/S based upon: AC, BPD, Femur, HC GA by U/S 32 w + 1 d CAROLYN by U/S: 06/30/2025 Assigned: based on ultrasound (CRL), selected on 12/23/2024 Assigned GA 31 w + 1 d Assigned CAROLYN: 07/07/2025 General Evaluation Cardiac activity present. FHR 141 bpm. movements: present. Presentation: cephalic Placenta: Placental site: anterior, fundal Umbilical cord: Cord vessels: 3 vessel cord Amniotic fluid: Amount of AF: normal amount. MVP 5.7 cm. NO 21.6 cm. Q1 5.7 cm, Q2 5.2 cm, Q3 5.7 cm, Q4 5.0 cm Growth Overview Exam date GA BPD (mm) HC (mm) AC (mm) FL (mm) HL (mm) EFW (g) 02/17/2025 20w 0d 45.3 37% 175.9 52% 165.7 89% 32.9 73% 31.8 77% 382 88% 05/06/2025 31w 1d 80.6 76% 293.1 58% 300.4 98% 59.1 48% 2044 87% Biometry Standard BPD 80.6 mm 32w 3d 76% Hadlock OFD 103.2 mm 30w 3d 47% Nicolaides HC 293.1 mm 31w 4d 58% David AC 300.4 mm 34w 0d 98% Hadlock Femur 59.1 mm 30w 5d 48% David EFW 2,044 g 32w 3d 87% Hadlock EFW (lb) 4 lb EFW (oz) 8 oz EFW by: Hadlock (HC-AC-FL) Extended [employer] Courier 5.2 mm Extremities / Bony Struc FL / HC 0.20 Other Structures FHR 141 bpm Anatomy Lateral ventricles: normal Cavum septi pellucidi: normal Cerebellum: normal Cisterna magna: normal 4-chamber view: normal RVOT view: normal LVOT view: normal 3-vessel view: normal Heart / Thorax Situs: situs solitus (normal) Diaphragm: normal Stomach: normal Kidneys: normal Bladder: normal Gender: Unspecified Wants to know sex: no Performed By: Norma Logan RDMS, RVT Read By: America Hammond M.D.MATERNAL [id number] Progress note* Quick Notes - Jamey Mcghee MD - 05/06/2025 9:07 AM EDT KJ - S: Federica ajies LOF, contractions or vaginal bleeding. O: 31w1d, see flow sheet SENSITIVE EXAM: Sensitive exam not performed. A/P: Assessment & Plan 31 weeks gestation of (HCC) Orders: BLOOD MANAGEMENT REFERRAL Anemia complicating , first trimester (HCC) Antepartum anemia, third trimester (HCC) Referral placed for IV iron Orders: BLOOD MANAGEMENT REFERRAL Other obesity affecting in third trimester (HCC) Growth today Supervision of high risk in third trimester (HCC) Reviewed PTL & FM precautirons Jamey Mcghee MD [facility]07-08-2025 Miscellaneous Notes* Quick Notes - Jamey Mcghee MD - 05/06/2025 9:07 AM EDT KJ - S: Federica denies LOF, contractions or vaginal bleeding. O: 31w1d, see flow sheet SENSITIVE EXAM: Sensitive exam not performed. A/P: Assessment & Plan 31 weeks gestation of (HCC) Orders: BLOOD MANAGEMENT REFERRAL Anemia complicating , first trimester (HCC) Antepartum anemia, third trimester (HCC) Referral placed for IV iron Orders: BLOOD MANAGEMENT REFERRAL Other obesity affecting in third trimester ([facility]) [facility] today Supervision of high risk in third trimester ([facility]) Reviewed PTL & FM precautirons Jamey Mcghee MD documented in this encounterHolmes County [facility]07-08-[facility]25 Instructions* Patient Instructions* Bird Dumont MA - 05/06/2025 8:55 AM EDT SEQUENTIAL SCREENINGS The [facility] offers sequential screenings for women who are interested in screenings for chromosomal abnormalities and certain defects during a . The sequential screen combinesultrasound and blood tests to determine the risk of chromosomal abnormalities, including Down's Syndrome (Trisomy 21) and Trisomy 18, as well as open neural tube defects including spina bifida. Ultrasound examination is performed between 11 weeks and 13 weeks gestational age. Blood tests are drawn after the ultrasound and again later in the between 15 and 21 weeks gestational age. Please let your physician know if you are interested in this testing. It will require an appointment withour battery service technician. This is not an ultrasound performed by a physician in our office during a routine visit. SIGNS AND SYMPTOMS OF LABOR 1. Contractions every 10 minutes or more often 2. Clear, pink, or brownish fluid (water) leaking from vagina 3. Feeling that baby is pushing down, pressure 4. Low, dull backache 5. Cramps that feel like a period 6. Cramps with or without diarrhea If you notice any of the above symptoms, contact our office at [phone] and ask to speak with anurse. After hours, you can call doctors registry at [phone] OR call [facility] at [phone] ask to have the doctor automation qa tester paged. If you consider this an emergency, dial 5--7 or go to your nearest emergency department. NEED HELP? Are you dealing with a violent or abusive relationship? Are you a victim of rape or sexual assult? Call [facility] ([place]) 24 hour Crisis Hotline: 276.234.6728 or 732-555-5896. MANUAL Your Guide to a Healthy manual is now on-line. Visit [email or web address] to download your free copy documented in this encounterHolmes County [facility]06-30-2025 Instructions* Patient Instructions* Keshia Moreira APRN.FAMILY MEDICINE CHAIR - 04/28/2025 3:13 PM EDT Your amoxicillin/penicillin allergy testing today was negative. - You may take penicillin and penicillin-like antibiotics as your medical team prescribes. - You no longer need to tell people you are allergic to penicillin. - You may still have side effects from antibiotics such as diarrhea or stomach upset. If this happens, take each antibiotic pill with food and try eating yogurt every day you are taking the antibiotic. - You may still have a delayed reaction to penicillin or an antibiotic like it. A delayed reaction does not happen for several days after you start taking an antibiotic, and may even happen several days after you finish an antibiotic. Delayed reactions are rarely life threatening. - If you have a rash, itching, or any other symptoms that worry you, call the medical provider who prescribed the antibiotic or, if you are having life- threatening symptoms, call 911 or go to the nearest emergency room. documented in this encounterHolmes County [facility]06-30-2025 NoteHNO ID: [id number] Author: DARREN MISHRA RN Service: ? Author Type: Registered Nurse Type: Progress Notes Filed: 04/28/2025 20:22 Note Text: ANTIBIOTIC PERCUTANEOUS AND INTRADERMAL SKIN TESTING/ Mean Wheal AND Flare Diameter (mm) Patient has been identified by name and date of : Yes . Skin test applied by : Darren Mishra RN Interpreted By: ISI Ortiz * Clinical significant reactions are regarded as a wheal diameter greater than or equal to 3 mm with a flare diameter greater or equal to 6mm. Time Prick test applied: 1340 Time Intradermal test applied: 1400 Time Prick test read: 1355 Time Intradermal test read: 1415 ALLERGENS Negative Control (50% glycerin/50% cocas for prick and HSA for intradermal) P: W = 0 mm F = 3 mm ID:W = 3 mm F = 0 mm PENICILLIN GK 10,000 UNITS/ML Lot# [id number] Exp.05/02/2025 P: W = 0 mm F = 3 mm ID: W = 3 mm F = 0 mm PREPEN -(benzylpenicilloyl polylysine) full strength [facility]#[id number] Lot#[id number] exp#04/28/2026 P: W = 0 mm F = 3 mm ID: W = 3 mm F = 0 mm HISTAMINE- positive control (Histamine base 6mg/ml)for Prick and 0.1 mg/ml for intradermal P: W = 5 mm F = 20 mm Hydrocortisone cream 2.5% applied to positive skin test reactions per order. Amoxicillin Oral Challenge 1327 Informed consent for Amoxicillin oral challenge obtained per Keshia SNOWDEN. Amoxicillin ([facility] lot [id number] exp. 10/28/2026) 250 mg/5 ml oral suspension po given per Keshia SNOWDEN orders. 1416 Amoxicillin 25mg given per order. 1446 Amoxicillin 225mg given per order. 1519 BP: 120/73 HR 88 RR 18 SpO2 98% 1519 Testing complete. No signs or symptoms of a rxn. Keshia SNOWDEN in to assess.[facility]06-30-2025 History of Present illness Narrative* Darren Mishra RN - 04/28/2025 2:22 PM EDT ANTIBIOTIC PERCUTANEOUS AND INTRADERMAL SKIN TESTING/ Mean Wheal & Flare Diameter (mm) Patient has been identified by name and date of : Yes . Skin test applied by : Darren Mishra RN Interpreted By: ISI Ortiz * Clinical significant reactions are regarded as a wheal diameter greater than or equal to 3 mm with a flare diameter greater or equal to 6mm. Time Prick test applied: 1340 Time Intradermal test applied: 1400 Time Prick test read: 1355 Time Intradermal test read: 1415 ALLERGENS Negative Control (50% glycerin/50% cocas for prick and HSA for intradermal) P: W = 0 mm F = 3 mm ID:W = 3 mm F = 0 mm PENICILLIN GK 10,000 UNITS/ML Lot# [id number] Exp.05/02/2025 P: W = 0 mm F = 3 mm ID: W = 3 mm F = 0 mm PREPEN -(benzylpenicilloyl polylysine) full strength [facility]#[id number] Lot#[id number] exp#04/28/2026 P: W = 0 mm F = 3 mm ID: W = 3 mm F = 0 mm HISTAMINE- positive control (Histamine base 6mg/ml)for Prick and 0.1 mg/ml for intradermal P: W = 5mm F = 20 mm Hydrocortisone cream 2.5% applied to positive skin test reactions per order. Amoxicillin Oral Challenge 1327 Informed consent for Amoxicillin oral challenge obtained per Keshia Moreira FAMILY MEDICINE CHAIR. Amoxicillin ([facility] lot [id number] exp. 10/28/2026) 250 mg/5 ml oral suspension po given per Keshia Moreira FAMILY MEDICINE CHAIR orders. 1416 Amoxicillin 25mg given per order. 1446 Amoxicillin 225mg given per order. 1519 BP: 120/73 HR 88 RR 18 SpO2 98% 1519 Testing complete. No signs or symptoms of a rxn. Keshia SNOWDEN in to assess. * Keshia Moreira APRN.CNS - 04/28/2025 1:07 PM EDT [facility] Allergy & Clinical Immunology Keyla Kay MD has requested consultation for penicillin allergy. My progress note with assessment and recommendations from today's appointment will be electronically routed to Keyla Kay MD. Chief Complaint: Penicillin allergy Historian: Patient Recording using [employer] software for draft documentation of the visit was discussed with the patient/authorized healthcare sales representative; all questions welcomed and answered. Patient/authorized healthcare sales representative agreed to proceed HPI Ms. Figueroa is a 34 year old 30-week female with a history of asthma, allergies, and eczemain clinic for work up of penicillin allergy. Federica reports a history of a penicillin allergy manifesting as a rash during childhood. She does not recall the severity of the reaction or if hospital ization was required. She is uncertain if she has tolerated cephalosporins since the reaction. 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 No pertinent surgical history. FAMILY HISTORY Problem Relation Age of Onset Hypertension Mother Asthma Mother Allergic Rhinitis Mother No Known Problems Sister Alzheimer's Disease Maternal Grandmother Social History Tobacco Use Smoking status: Never Smokeless tobacco: Never Vaping Use Vaping status: Never Used Substance Use Topics Alcohol use: Never Drug use: Never Social History Tobacco Use Smoking status: Never Smokeless tobacco: Never Current Outpatient Medications Medication Sig ferrous sulfate 325 mg (65 mg iron) tablet Take 1 tablet by mouth every other day. famotidine (PEPCID) 20 mg tablet Take 1 tablet by mouth two times a day. PNV no.95/ferrous fum/folic ac ( ORAL) Take 2 Pieces of gum by mouth once daily. ALBUTEROL INHALATION Inhale 2 Inhalations as instructed as needed (WHEEZING, SHORTNESS OF BREATH). Current Facility-Administered Medications Medication Dose Route Frequency penicillin G potassium 2,000 Units injection in NaCl 0.9% 0.2 mL (PFIZERPEN-G) 2,000 Units INTRADERMAL ONCE ALLERGIES Allergen Reactions Penicillins Rash Review of Systems Constitutional: Negative for chills and fever. HENT: Positive for congestion. Negative for postnasal drip, rhinorrhea, sore throat and trouble swallowing. Eyes: Negative for redness and itching. Respiratory: Negative for cough, chest tightness, shortness of breath and wheezing. Cardiovascular: Negative for chest pain. Gastrointestinal: Positive for abdominal pain (2/2 symphysis pubis dysfunction). Negative for diarrhea, nausea and vomiting. Skin: Negative for rash. Neurological: Negative for dizziness, syncope and light-headedness. Blood pressure 127/81, pulse 99, temperature 36.7 C (98 F), temperature source Temporal, resp. rate19, height 157.5 cm (5' 2), weight 92.9 kg (204 lb 12.9 oz), last menstrual period 09/01/2024, SpO2 99%. Body mass index is 37.46 kg/m . Physical Exam Vitals reviewed. Constitutional: General: She is not in acute distress. Appearance: Normal appearance. She is not ill-appearing. HENT: Nose: Nose normal. Mouth/Throat: Mouth: Mucous membranes are moist. Pharynx: Oropharynx is clear. Eyes: Conjunctiva/sclera: Conjunctivae normal. Cardiovascular: Rate and Rhythm: Normal rate and regular rhythm. Heart sounds: Normal heart sounds. Pulmonary: Effort: Pulmonary effort is normal. Breath sounds: Normal breath sounds. Skin: General: Skin is warm and dry. Findings: No rash. Neurological: Mental Status: She is alert. Psychiatric: Mood and Affect: Mood normal. Behavior: Behavior is cooperative. Allergy Skin Testing & Oral Drug Challenge: Skin testing performed percutaneously and intradermally to penicillin G and PrePen. Results were negative and personally reviewed and interpreted by me. Risks, benefits, and alternatives were discussed with patient regarding oral amoxicillin challenge,including risk for anaphylaxis. Consent obtained. Patient received oral amoxicillin in 2 divided doses of 25 mg and 225 mg. The patient was observed for 61 minutes with no reaction. Assessment and Recommendations (R21) Rash (primary encounter diagnosis) (Z88.0) Penicillin allergy (Z3A.30) 30 weeks gestation of (HCC) Previous history of penicillin allergy. Patient without evidence of an IgE- mediated penicillin allergy. The testing and challenge does not predict [id number] reactions to beta lactams (i.e. hepatitis, TENS, SJS,etc.) - May use beta lactam antibiotics in the future I spent a total of 28 minutes on the date of the service which included preparing to see the patient, [id number] patient care, completing clinical documentation, obtaining and/or reviewing separately obtained history, performing a medically appropriate examination, counseling and educating the pat ient/family/caregiver, ordering medications, tests, or procedures, independently interpreting results (not separately reported), and communicating results to the patient/family/caregiver. AVS provided to patient via [employer] and included a recap of today's appointment and medical plan. Keshia Moreira APRN.FAMILY MEDICINE CHAIR Allergy & Clinical Immunology documented in this encounterHolmes County [facility]06-30-2025 NoteHNO ID: [id number] Author: KESHIA MOREIRA APRN.FAMILY MEDICINE CHAIR Service: ? Author Type: Nurse Specialist Type: Progress Notes Filed: 04/28/2025 20:22 Note Text: [facility] Allergy AND Clinical Immunology Keyla Kay MD has requested consultation for penicillin allergy. My progress note with assessment and recommendations from today's appointment will be electronically routed to Keyla Kay MD. Chief Complaint: Penicillin allergy Historian: Patient Recording using [employer] software for draft documentation of the visit was discussed with the patient/authorized healthcare sales representative; all questions welcomed and answered. Patient/authorized healthcare sales representative agreed to proceed HPI Ms. Figueroa is a 34 year old 30-week female with a history of asthma, allergies, and eczema in clinic for work up of penicillin allergy. Federica reports a history of a penicillin allergy manifesting as a rash during childhood. She does not recall the severity of the reaction or if hospitalization was required. She is uncertain if she has tolerated cephalosporins since the reaction. 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 No pertinent surgical history. FAMILY HISTORY Problem Relation Age of Onset Hypertension Mother Asthma Mother Allergic Rhinitis Mother No Known Problems Sister Alzheimer's Disease Maternal Grandmother Social History Tobacco Use Smoking status: Never Smokeless tobacco: Never Vaping Use Vaping status: Never Used Substance Use Topics Alcohol use: Never Drug use: Never Social History Tobacco Use Smoking status: Never Smokeless tobacco: Never Current Outpatient Medications Medication Sig ferrous sulfate 325 mg (65 mg iron) tablet Take 1 tablet by mouth every other day. famotidine (PEPCID) 20 mg tablet Take 1 tablet by mouth two times a day. PNV no.95/ferrous fum/folic ac ( ORAL) Take 2 Pieces of gum by mouth once daily. ALBUTEROL INHALATION Inhale 2 Inhalations as instructed as needed (WHEEZING, SHORTNESS OF BREATH). Current Facility-Administered Medications Medication Dose Route Frequency penicillin G potassium 2,000 Units injection in NaCl 0.9% 0.2 mL (PFIZERPEN-G) 2,000 Units INTRADERMAL ONCE ALLERGIES Allergen Reactions Penicillins Rash Review of Systems Constitutional: Negative for chills and fever. HENT: Positive for congestion. Negative for postnasal drip, rhinorrhea, sore throat and trouble swallowing. Eyes: Negative for redness and itching. Respiratory: Negative for cough, chest tightness, shortness of breath and wheezing. Cardiovascular: Negative for chest pain. Gastrointestinal: Positive for abdominal pain (2/2 symphysis pubis dysfunction). Negative for diarrhea, nausea and vomiting. Skin: Negative for rash. Neurological: Negative for dizziness, syncope and light-headedness. Blood pressure 127/81, pulse 99, temperature 36.7 ?C (98 ?F), temperature source Temporal, resp. rate 19, height 157.5 cm (5' 2), weight 92.9 kg (204 lb 12.9 oz), last menstrual period 09/01/2024, SpO2 99%. Body mass index is 37.46 kg/m?. Physical Exam Vitals reviewed. Constitutional: General: She is not in acute distress. Appearance: Normal appearance. She is not ill-appearing. HENT: Nose: Nose normal. Mouth/Throat: Mouth: Mucous membranes are moist. Pharynx: Oropharynx is clear. Eyes: Conjunctiva/sclera: Conjunctivae normal. Cardiovascular: Rate and Rhythm: Normal rate and regular rhythm. Heart sounds: Normal heart sounds. Pulmonary: Effort: Pulmonary effort is normal. Breath sounds: Normal breath sounds. Skin: General: Skin is warm and dry. Findings: No rash. Neurological: Mental Status: She is alert. Psychiatric: Mood and Affect: Mood normal. Behavior: Behavior is cooperative. Allergy Skin Testing AND Oral Drug Challenge: Skin testing performed percutaneously and intradermally to penicillin G and PrePen. Results were negative and personally reviewed and interpreted by me. Risks, benefits, and alternatives were discussed with patient regarding oral amoxicillin challenge, including risk for anaphylaxis. Consent obtained. Patient received oral amoxicillin in 2 divided doses of 25 mg and 225 mg. The patient was observed for 61 minutes with no reaction. Assess (more content not included)...[facility]06-24-2025 Telephone encounter Note* Telephone Encounter - Tricia Perez RN - 04/22/2025 12:30 PM EDT Appt note edited. OB appt scheduled 05/07/25 as no availability 05/06/25 near Pt's US appt. Pt agreeable. Pt aware of lab results and will get CBC drawn prior to appt. Tricia Perez RN [facility]06-24-2025 Miscellaneous Notes* Telephone Encounter - Tricia Perez RN - 04/22/2025 12:30 PM EDT Appt note edited. OB appt scheduled 05/07/25 as no availability 05/06/25 near Pt's US appt. Pt agreeable. Pt aware of lab results and will get CBC drawn prior to appt. Tricia Perez, RN documented in this encounterHolmes County [facility]06-23-2025 Progress note* Quick Notes - Karyn Aleman MD - 04/21/2025 11:12 AM EDT SW- With bending over she has lower abdominal pain. No ctx, vb, lof. Good FM. PE: Gen- NAD, well appearing Abd- Soft, gravid, NT See flowsheet A/p 29 wk gestation - Asthma: Not having to use Albuterol at this time - H/o depression: Mood stable per patient - 28 wk labs today - Tdap today - Obesity: Growth US's ordered - LARC signed - RTO 2 wks Karyn Aleman DO [facility]06-23-2025 Miscellaneous Notes* Quick Notes - Karyn Aleman MD - 04/21/2025 11:12 AM EDT SW- With bending over she has lower abdominal pain. No ctx, vb, lof. Good FM. PE: Gen- NAD, well appearing Abd- Soft, gravid, NT See flowsheet A/p 29 wk gestation - Asthma: Not having to use Albuterol at this time - H/o depression: Mood stable per patient - 28 wk labs today - Tdap today - Obesity: Growth US's ordered - LARC signed - RTO 2 wks Karyn Aleman DO documented in this encounterHolmes County [facility]06-23-2025 NoteHNO ID: [id number] Author: BIRD DUMONT MA Service: ? Author Type: Helicopter Pilot Type: Progress Notes Filed: 04/21/2025 12:05 Note Text: Patient identified by name and date of . Federica Figueroa presents today for a vaccination of Tdap. Patient denies an allergy to latex: yes Patient denies a severe (life-threatening) allergy to a previous dose of Tdap, DTP, DTaP, DT or Td vaccine. Yes Patient denies history of epilepsy or neurological problems: Yes Patient is afebrile and denies being moderately or severely ill: Yes Patient denies history of Guillain-Buffalo Syndrome (a severe paralytic illness): Yes Tdap Adacel injection was given without incident. See immunizations for details of immunizations administered today. VIS sheet provided: Yes Provider Karyn Aleman DO was present in office at time of injection. Bird Dumont [facility]06-23-2025 History of Present illness Narrative* Bird Dumont MA - 04/21/2025 10:56 AM EDT Patient identified by name and date of . Federica Figueroa presents today for a vaccination of Tdap. Patient denies an allergy to latex: yes Patient denies a severe (life-threatening) allergy to a previous dose of Tdap, DTP, DTaP, DT or Td vaccine. Yes Patient denies history of epilepsy or neurological problems: Yes Patient is afebrile and denies being moderately or severely ill: Yes Patient denies history of Guillain-Buffalo Syndrome (a severe paralytic illness): Yes Tdap Adacel injection was given without incident. See immunizations for details of immunizations administered today. VIS sheet provided: Yes Provider Karyn Aleman DO was present in office at time of injection. Bird Dumont MA documented in this encounterHolmes County [facility]06-23-2025 Instructions* Patient Instructions* Bird Dumont MA - 04/21/2025 10:53 AM EDT SEQUENTIAL SCREENINGS The [facility] offers sequential screenings for women who are interested in screenings for chromosomal abnormalities and certain defects during a . The sequential screen combinesultrasound and blood tests to determine the risk of chromosomal abnormalities, including Down's Syndrome (Trisomy 21) and Trisomy 18, as well as open neural tube defects including spina bifida. Ultrasound examination is performed between 11 weeks and 13 weeks gestational age. Blood tests are drawn after the ultrasound and again later in the between 15 and 21 weeks gestational age. Please let your physician know if you are interested in this testing. It will require an appointment withour battery service technician. This is not an ultrasound performed by a physician in our office during a routine visit. SIGNS AND SYMPTOMS OF LABOR 1. Contractions every 10 minutes or more often 2. Clear, pink, or brownish fluid (water) leaking from vagina 3. Feeling that baby is pushing down, pressure 4. Low, dull backache 5. Cramps that feel like a period 6. Cramps with or without diarrhea If you notice any of the above symptoms, contact our office at [phone] and ask to speak with anurse. After hours, you can call doctors registry at [phone] OR call [facility] at [phone] ask to have the doctor automation qa tester paged. If you consider this an emergency, dial 91-7 or go to your nearest emergency department. NEED HELP? Are you dealing with a violent or abusive relationship? Are you a victim of rape or sexual assult? Call [facility] ([place]) 24 hour Crisis Hotline: 623.704.7435 or 310-468-8226. MANUAL Your Guide to a Healthy manual is now on-line. Visit [email or web address] to download your free copy documented in this encounterHolmes County [facility]06-01-2025 Discharge summary Author Gonzalez Barreto [facility] Note Date/Time June 13, 2025 12 :35pm [facility] Medical Records Department [address] [place] [address] Emergency Department Summary 06/13/25 MR#: [id number] Acct: [id number] Name: FEDERICA FIGUEROA MARCH Rep #:[id number] : 1990 35 From: Gonzalez Barreto MD PCP: Care Physician,No Primary Status :ADM IN Location: [place] [address] HPI HPI - Female History of Present Illness Chief Complaint: Informant: patient and spouse/S.O. Pain Onset: Hours (2 hours prior to arrival abrupt onset of shortness of breath with chest discomfort.) Context: Sudden Onset Timing: Continuous Quality: Positive for - (Pleuritic) Location: - (Anterior chest) Current Severity: Mild Maximum Severity: Moderate Bleeding Issue: Negative for Vaginal bleeding, Passing clots or Passing tissue Associated Symptoms Associated Symptoms: Positive for Frequency; Negative for Dysuria, Urgency or Hematuria Test: Positive P: 1 Ab: 0 Narrative Narrative: Patient is a 35-year-old G2, P1 female who is 36 weeks gestation. She is followed through the [facility] department. She presents because abrupt onset shortness breath and chest pain that started 2 hours prior to arrival. I was asked see patient in triage. Patient is pale diaphoretic tachycardic. She is not hypotensive. She has no symptoms to suggest preeclampsia at this time. She denies headache, visual or auditory symptoms. Denies trouble speech or swallowing. She did have 1 episode of nausea and vomiting. She does have frequency otherwise negative review of systems. Patient had thrombectomy earlier this week by Dr. De Guzman for thrombosed hemorrhoid. Prior similar symptoms: No Recent Illness/[facility]: [facility] Medical History Polyhydramnios Constipation Anemia Hemorrhoids Home Medications ?Medication ?Instructions ?Recorded ?Last Taken ?Type famotidine 20 mg tablet 20 mg PO BID 06/09/25 Unknow n History ferrous sulfate 325 mg (65 mg 325 mg PO Q OTHER DAY Unknown History iron) tablet Allergy/AdvReac Type Severity Reaction Status Date / Time No Known Allergies Allergy Verified 06/13/25 10:12 Social History Smoking Status: Never smoker alcohol intake: never substance use type: does not use ROS ROS ED Constitutional Constitutional ED: Denies chills, fever(s), subjective or sweats Eyes Eyes: Denies blurry vision or change in vision ENT ENT ED: Denies ear pain or rhinorrhea Cardiovascular Cardiovascular: Reports chest pain and racing heartbeat; Denies orthopnea, palpitations or paroxysmal nocturnal dyspnea Respiratory/Chest Respiratory/Chest: Reports dyspnea; Denies cough, dyspnea on exertion, orthopneaor paroxysmal nocturnal dyspnea Gastrointestinal Gastrointestinal: Reports nausea and vomiting; Denies abdominal pain, diarrhea or melena Genitourinary Genitourinary ED: Denies dysuria, hematuria or urinary frequency Musculoskeletal Musculoskeletal: Denies arthralgias, myalgias or neck pain Integumentary Denies rash Neurologic Neurologic: Denies headache(s), paresthesias or weakness Psychiatric Psychiatric: Reports anxiety; Denies depression Hematologic/Lymphatic Hematologic/Lymphatic: Reports easy bleeding and easy bruising EXAM Physical Exam Const Vital Signs: 06/13/25 10:09 06/13/25 11:08 06/13/25 12:00 Temperature 98.0 F Temperature Source Oral Pulse Rate 128 H 102 H 89 Respiratory Rate 16 17 16 Blood Pressure 132/89 H 125/76 H Blood Pressure Mean 103 92 Pulse Ox 98 96 97 Oxygen Delivery Method Room Air Room Air Room Air Positive well nourished and well developed Constitutional Narrative: BMI is 36.0. Patient appears pale. She is anxious. She is tachycardic. Patient is slightly diaphoretic. I was asked to see patient in triage because of her vitals and concern for pulmonary embolus and if patient was to be seen inED or L&D. General Appearance ED: well developed and pallor HEENT Reports moist mucous membranes HEENT Narrative: Head is atraumatic normocephalic. Ears normal. Nares patent Eyes PERRL and EOMs intact bilaterally General Eye ED: Negative for pale conjunctiva or scleral icterus Neck no lymphadenopathy, supple and no JVD Resp normal respiratory effort and clear to auscultation bilaterally Cardio regular rhythm, S1 normal heart sound, no murmurs and no JVD Rate: tachycardic GI GI Narrative: Fundal height is 2 cm inferior to the xiphoid process. There is no contractions. Extremity normal to inspection and full ROM General Extremety ED: Negative for edema General Extremity: Negative for edema Neuro oriented x3, CN's II-XII intact bilaterally and no sensory deficits noted Neuro Narrative: Patient has 2-3 beats of nonsustained clonus at the ankles. DTRs are 1-2+ and symmetric bicep, brachialis, patella and ankle. There is negative Babinski sign. Sensorium / Orientation: alert Motor Exam: strength 5/5 throughout Psych Mood & Affect: anxious Skin General Skin Exam: pallor MDM MDM MDM Narrative Medical decision making narrative: With abrupt onset of shortness of breath tachycardia third trimester need to evaluate for pulmonary embolus. Doubt pneumothorax. Doubt cardiac ischemia. Her symptoms are not consistent with preeclampsia since her blood pressure is slightly elevated. Will obtain CMP, CBC and CTA of the chest to evaluate for pulmonary embolus. Lab Data Attestation: I reviewed the patient's lab results. Lab results narrative: CBC is remarked for microcytic anemia. Comprehensive metabolic panel is unremarkable. Troponin is negative. BNP is normal. This was obtained to determine there was any evidence for of heart strain. Labs: Laboratory Results - last 24 hr 06/13/25 10:32 WBC 10.7 RBC 4.55 Hgb 10.8 L Hct 35.0 L MCV 76.9 L MCH 23.7 L MCHC 30.9 L RDW Std Deviation 73.7 H RDW Coeff of Shannon 28.7 H Plt Count 215 MPV 8.1 Immature Gran % (Auto) 0.500 Neut % (Auto) 92.0 H Lymph % (Auto) 5.1 L Campbell % (Auto) 2.1 Eos % (Auto) 0.1 Baso % (Auto) 0.2 Absolute Neuts (auto) 9.9 H Absolute Lymphs (auto) 0.55 L Nucleated RBC % 0 Differential Comment COMMENT Anisocytosis 1+ Sodium 136 Potassium 3.6 Chloride 103 Carbon Dioxide 18.3 L Anion Gap 14 BUN 5 Creatinine 0.46 L Estim Creat Clear Calc 201.67 Est GFR (MDRD) Non-Af 129 BUN/Creatinine Ratio 11.7 Glucose 75 Lactic Acid 1.4 Calcium 9.3 Total Bilirubin 0.43 AST 13 ALT < 5 Alkaline Phosphatase 90 Troponin T High Sens < 6 NT pro BNP II < 36 Total Protein 6.4 Albumin 3.5 Globulin 2.9 Albumin/Globulin Ratio 1.2 Radiography Diagnostic Testing: Clinical Impression(s) from Imaging Studies Chest CTA 06/13/25 10:20 IMPRESSION: Single nonocclusive intraluminal filling defect is seen in the proximal branch of the right interlobar pulmonary artery as seen on axial image number 97 and coronal image number 156 Reading Location: [place] [id number] results. The commercial interior designer was contacted, Dr. Kerry Paniagua. She requested admission to labor and delivery. I informed herthat I ordered heparin however which she prefer Lovenox. She preferred Lovenox. This was discontinued and 1 mg/kg Lovenox was ordered. She will be admitted tolabor and delivery. EKG Initial EKG: Attestation: I personally reviewed and interpreted this EKG as follows: Interpretation: Sinus Tachycardia (Sinus tachycardia rate of 109 otherwisenormal. AL interval is under 36 ms QRS duration 6 6 ms. QT duration 2032 ms. Swatara is normal.) Management Discussion w/another healthcare provider: Funeral Service Practitioner/Embalmer (Spoke with Dr. Kerry Paniagua on-call for [facility]. Patient to be admitted to labor and delivery.) Treatment and Re-Evaluation Narrative: Patient and were informed of results. They were informed that she will be admitted to labor and delivery for observation and treated with Lovenox. Discharge Plan Triage Chief Complaint: ED Provider: Gonzalez Barreto Dx/Rx/DC Orders Clinical Impression: Pulmonary embolus, Sinus tachycardia seen on carburetor expert, Third trimester , Microcytic anemia, S/P hemorrhoidectomy Prescriptions: No Action ferrous sulfate 325 mg (65 mg iron) tablet 325 mg PO Q OTHER DAY famotidine 20 mg tablet 20 mg PO BID Primary Care Provider: Care Physician,No Primary Referrals: Care Physician,No Primary [Primary Care Provider] - Print Language: Mohawk Disposition Disposition: Acute Care Hospital [facility] What to do if you have Problems For any increased pain, shortness of breath, bleeding, nausea or vomiting, chestpain, or any unexpected problems, contact your Primary Care Provider. Call Doctors Registry ([phone]) or report to the closest Emergency Room. Call 911 if necessary. 06/13/25 1235 <Electronically signed by Gonzalez Barerto MD> Cosigner Signature (if applicable): CC: No Primary Care Physician ~ Signed [facility] Work Phone: 1(415) 563-967404-21-2025 Progress note* Quick Notes - Keyla Kay MD - 02/17/2025 3:14 PM EDT RR- VB No. LOF No. CTXS No. Movement: present. Other c/o: No. Medication list reviewed. SENSITIVE EXAM: Sensitive exam not performed. Physical Exam See Flow Sheet Gen: no accute distress, well appearing A/P 20w0d Estimated Date of Delivery: 07/07/25 Assessment & Plan 20 weeks gestation of (HCC) Orders: CONSULT TO ALLERGY/IMMUNOLOGY; Future Supervision of high risk in second trimester (HCC) Orders: CONSULT TO ALLERGY/IMMUNOLOGY; Future Obesity affecting in second trimester, unspecified obesity type (HCC) 8 weeks gestation of (HCC) Penicillin allergy Orders: CONSULT TO ALLERGY/IMMUNOLOGY; Future Keyla Kay M.D. [facility]04-21-2025 Miscellaneous Notes* Quick Notes - Keyla Kay MD - 02/17/2025 3:14 PM EDT RR- VB No. LOF No. CTXS No. Movement: present. Other c/o: No. Medication list reviewed. SENSITIVE EXAM: Sensitive exam not performed. Physical Exam See Flow Sheet Gen: no accute distress, well appearing A/P 20w0d Estimated Date of Delivery: 07/07/25 Assessment & Plan 20 weeks gestation of (HCC) Orders: CONSULT TO ALLERGY/IMMUNOLOGY; Future Supervision of high risk in second trimester (HCC) Orders: CONSULT TO ALLERGY/IMMUNOLOGY; Future Obesity affecting in second trimester, unspecified obesity type (HCC) 8 weeks gestation of (HCC) Penicillin allergy Orders: CONSULT TO ALLERGY/IMMUNOLOGY; Future Keyla Kay M.D. documented in this encounterHol[facility]04[facility] Instructions* Patient Instructions* Bird Dumont MA - 02/17/2025 3:03 PM EDT SEQUENTIAL SCREENINGS The [facility] offers sequential screenings for women who are interested in screenings for chromosomal abnormalities and certain defects during a . The sequential screen combinesultrasound and blood tests to determine the risk of chromosomal abnormalities, including Down's Syndrome (Trisomy 21) and Trisomy 18, as well as open neural tube defects including spina bifida. Ultrasound examination is performed between 11 weeks and 13 weeks gestational age. Blood tests are drawn after the ultrasound and again later in the between 15 and 21 weeks gestational age. Please let your physician know if you are interested in this testing. It will require an appointment withour battery service technician. This is not an ultrasound performed by a physician in our office during a routine visit. SIGNS AND SYMPTOMS OF LABOR 1. Contractions every 10 minutes or more often 2. Clear, pink, or brownish fluid (water) leaking from vagina 3. Feeling that baby is pushing down, pressure 4. Low, dull backache 5. Cramps that feel like a period 6. Cramps with or without diarrhea If you notice any of the above symptoms, contact our office at [phone] and ask to speak with anurse. After hours, you can call doctors registry at [phone] OR call [facility] at [phone] ask to have the doctor automation qa tester paged. If you consider this an emergency, dial 1-3-2 or go to your nearest emergency department. NEED HELP? Are you dealing with a violent or abusive relationship? Are you a victim of rape or sexual assult? Call [facility] ([place]) 24 hour Crisis Hotline: 805.897.9636 or 110-994-3917. MANUAL Your Guide to a Healthy manual is now on-line. Visit [email or web address] to download your free copy documented in this encounterHolmes [facility]03-[facility]-20[facility] Progress note* Quick Notes - Sheryl Bejarano APRN.CNM - 01/20/2025 2:27 PM EDT MARIPOSA-S: Federica Figueroa is a 34 year old female who presents at 16w0d with CAROLYN:07/07/2025, by Ultrasound for a routine visit. Denies visual changes, chest pain, shortness of breath, vaginal bleeding, leakage of fluid, or dysuria. Migraines have improved. Did not start magnesium but planning to start this. O: See flow sheet Gen: No apparent distress Abd: Gravid, nontender ASSESSMENT/PLAN: 1. Supervision of high risk in second trimester -Continue PNV and ASA 2. Obesity affecting in second trimester, unspecified obesity type -Pre BMI 35 - Plan for 32 week growth q 4 weeks. - Weekly NSTs at 36 weeks. 3. Anemia during in second trimester -Hgb 11, started iron supplement, repeat CBC at 20 weeks 4. 16 weeks gestation of 5. History of depression 6. Penicillin allergy -Recommend PCN allergy consult PTL precautions reviewed and when to call RTO in 4 weeks Sheryl Bejarano APRN.CNM [facility] Work Phone: 1(662) 307-819503-24-2025 Miscellaneous Notes* Quick Notes - Sheryl Bejarano APRN.CNM - 01/20/2025 2:27 PM EDT MARIPOSA-S: Federica Figueroa is a 34 year old female who presents at 16w0d with CAROLYN:07/07/2025, by Ultrasound for a routine visit. Denies visual changes, chest pain, shortness of breath, vaginal bleeding, leakage of fluid, or dysuria. Migraines have improved. Did not start magnesium but planning to start this. O: See flow sheet Gen: No apparent distress Abd: Gravid, nontender ASSESSMENT/PLAN: 1. Supervision of high risk in second trimester -Continue PNV and ASA 2. Obesity affecting in second trimester, unspecified obesity type -Pre BMI 35 - Plan for 32 week growth q 4 weeks. - Weekly NSTs at 36 weeks. 3. Anemia during in second trimester -Hgb 11, started iron supplement, repeat CBC at 20 weeks 4. 16 weeks gestation of 5. History of depression 6. Penicillin allergy -Recommend PCN allergy consult PTL precautions reviewed and when to call RTO in 4 weeks Sheryl Bejarano APRN.CNM documented in this encounterHol[facility]03-[facility] Instructions* Patient Instructions* Sulaiman Weinberg MA - 01/20/2025 2:14 PM EDT SEQUENTIAL SCREENINGS The [facility] offers sequential screenings for women who are interested in screenings for chromosomal abnormalities and certain defects during a . The sequential screen combinesultrasound and blood tests to determine the risk of chromosomal abnormalities, including Down's Syndrome (Trisomy 21) and Trisomy 18, as well as open neural tube defects including spina bifida. Ultrasound examination is performed between 11 weeks and 13 weeks gestational age. Blood tests are drawn after the ultrasound and again later in the between 15 and 21 weeks gestational age. Please let your physician know if you are interested in this testing. It will require an appointment withour battery service technician. This is not an ultrasound performed by a physician in our office during a routine visit. SIGNS AND SYMPTOMS OF LABOR 1. Contractions every 10 minutes or more often 2. Clear, pink, or brownish fluid (water) leaking from vagina 3. Feeling that baby is pushing down, pressure 4. Low, dull backache 5. Cramps that feel like a period 6. Cramps with or without diarrhea If you notice any of the above symptoms, contact our office at [phone] and ask to speak with anurse. After hours, you can call doctors registry at [phone] OR call [facility] at [phone] ask to have the doctor automation qa tester paged. If you consider this an emergency, dial 9-1-0 or go to your nearest emergency department. NEED HELP? Are you dealing with a violent or abusive relationship? Are you a victim of rape or sexual assult? Call [facility] ([place]) 24 hour Crisis Hotline: 889.948.2989 or 126-943-4688. MANUAL Your Guide to a Healthy manual is now on-line. Visit [email or web address] to download your free copy documented in this encounterHolmes [facility]02-27-2025 Telephone encounter Note * Telephone Encounter - Tricia Perez RN - 12/26/2024 11:30 AM EST Imonomi message sent to Pt. Tricia Perez RN [facility]02-27-2025 Miscellaneous Notes* Telephone Encounter - Tricia Perez RN - 12/26/2024 11:30 AM EST Imonomi message sent to Pt. Tricia Perez RN * Telephone Encounter - Naila Escobar APRN.CNP - 12/26/2024 10:29 AM EST Does not need another CBC for 4-6 weeks. Lack of data on laser hair removal during . Would not recommend. Risk of heat and then skin is more sensitive during , making someone more prone to skin reactions/rashes Naila Escobar APRN.DENNIS * Telephone Encounter - Tricia Perez RN - 12/26/2024 9:45 AM EST Pt notified of lab results. Also advised iron can cause constipation and to increase fiber in diet if noticing constipation and to make sure she eats something as well when taking iron to avoid stomach upset. CBC pended-did you want Pt to have anything else completed? And is it okay if Pt has completed prior to 01/20/25 appt? Pt also asking if she is able to use Ulike lasar hair removal-she also has an optional gel that sheuses after. States she has not used since being , but wants to know if she is able to beginusing. Please advise. Tricia Perez RN * Telephone Encounter - Tricia Perez RN - 12/26/2024 9:44 AM EST Naila Escobar APRN.DENNIS 12/26/24 7:17 AM Please notify patient: Anemic. 1. Increase iron rich foods in diet (I.e. Lean red meats, green leafy vegetables, beans/lentils or dried fruits) 2. Start an iron supplement now and take every other day or MWF. I recommend Ferrous Sulfate 325 mgby mouth 3. Take iron with a source of Vitamin C (orange juice) to help with absorption. 4. Avoid coffee, tea, milk at time the supplement is taken. 5. I recommend repeating blood work in 4-6 weeks. Naila Escobar APRN.DENNIS documented in this encounterHolmes [facility]02-27-2025 Telephone encounter Note * Telephone Encounter - Naila Escobar APRN.CNP - 12/26/2024 10:29 AM EST Does not need another CBC for 4-6 weeks. Lack of data on laser hair removal during . Would not recommend. Risk of heat and then skin is more sensitive during , making someone more prone to skin reactions/rashes Naila Escobar APRN.DENNIS [facility]02-27-2025 Telephone encounter Note* Telephone Encounter - Tricia Perez RN - 12/26/2024 9:45 AM EST Pt notified of lab results. Also advised iron can cause constipation and to increase fiber in diet if noticing constipation and to make sure she eats something as well when taking iron to avoid stomach upset. CBC pended-did you want Pt to have anything else completed? And is it okay if Pt has completed prior to 01/20/25 appt? Pt also asking if she is able to use Ulike lasar hair removal-she also has an optional gel that sheuses after. States she has not used since being , but wants to know if she is able to beginusing. Please advise. Tricia Perez RN [facility]02-27-2025 Telephone encounter Note* Telephone Encounter - Tricia Perez RN - 12/26/2024 9:44 AM EST Naila Escobar APRN.CNP 12/26/24 7:17 AM Please notify patient: Anemic. 1. Increase iron rich foods in diet (I.e. Lean red meats, green leafy vegetables, beans/lentils or dried fruits) 2. Start an iron supplement now and take every other day or MWF. I recommend Ferrous Sulfate 325 mgby mouth 3. Take iron with a source of Vitamin C (orange juice) to help with absorption. 4. Avoid coffee, tea, milk at time the supplement is taken. 5. I recommend repeating blood work in 4-6 weeks. Naila Escobar APRN.DENNIS [facility]02-27-2025 Telephone encounter Note* Telephone Encounter - Naila Escobar APRN.CNP - 12/26/2024 7:23 AM EST See phone note Naila Escobar APRN.CNP [facility]02-27-2025 Miscellaneous Notes* Telephone Encounter - Naila Escobar APRN.CNP - 12/26/2024 7:23 AM EST See phone note Naila Escobar APRN.CNP * Telephone Encounter - Kandis Salinas LPN - 12/25/2024 11:42 AM EST Patient saw results of labs on [facility] and called asking if she would need to start on an iron supplement d/t h/o anemia? Patient states that her vitamin does not have iron in it. * Telephone Encounter - Cammie Andrews MA - 11/22/2024 1:23 PM EST Left 2nd message on Pt voicemail. The call was intended to go over new ob intake questions for upcoming appointment. Patient was asked if she could call back and ask to speak to a women's health Faith Clarke. Patient was advised if she is unable to call back, we ask that she arrive 30 minutes prioron the day of her appointment. Cammie Andrews MA documented in this encounterHolmes [facility]02-26-2025 Telephone encounter Note * Telephone Encounter - Kandis Salinas LPN - 12/25/2024 11:42 AM EST Patient saw results of labs on Mychart and called asking if she would need to start on an iron supplement d/t h/o anemia? Patient states that her vitamin does not have iron in it. [facility]02-24-2025 Miscellaneous Notes* Quick Notes - Naila Escobar APRN.CNP - 12/23/2024 2:30 PM EST EH - S: Federica is a 34 year old female who presents at 12w0d for a routine visit. Denies headache, visual changes, chest pain, shortness of breath, vaginal bleeding, leakage of fluid, or dysuria. O: See flow sheet Gen: No apparent distress Abd: Gravid, nontender ASSESSMENT/PLAN: 1. Supervision of high risk in second trimester - ICD9: V23.9, ICD10: O09.92 (primary diagnosis) - No further urinary issues - Has been having a lot of headaches - history of migraines - Recommended 400 mg of Magnesium per day 2. 12 weeks gestation of - ICD9: V22.2, ICD10: Z3A.12 - NT today, report pending - Start LDA - labs today 3. Obesity affecting in second trimester, unspecified obesity type - ICD9: 649.13, ICD10:O99.212 -Pre BMI 35 - Plan for 32 week growth q 4 weeks. - Weekly NSTs at 36 weeks. PTL precautions reviewed. RTO in 4 weeks or sooner as needed. Naila Escobar APRN.CNP documented in this encounterHolmes [facility]02-24-2025 Progress note* Quick Notes - Naila Escobar APRN.CNP - 12/23/2024 2:30 PM EST EH - S: Federica is a 34 year old female who presents at 12w0d for a routine visit. Denies headache, visual changes, chest pain, shortness of breath, vaginal bleeding, leakage of fluid, or dysuria. O: See flow sheet Gen: No apparent distress Abd: Gravid, nontender ASSESSMENT/PLAN: 1. Supervision of high risk in second trimester - ICD9: V23.9, ICD10: O09.92 (primary diagnosis) - No further urinary issues - Has been having a lot of headaches - history of migraines - Recommended 400 mg of Magnesium per day 2. 12 weeks gestation of - ICD9: V22.2, ICD10: Z3A.12 - NT today, report pending - Start LDA - labs today 3. Obesity affecting in second trimester, unspecified obesity type - ICD9: 649.13, ICD10:O99.212 -Pre BMI 35 - Plan for 32 week growth q 4 weeks. - Weekly NSTs at 36 weeks. PTL precautions reviewed. RTO in 4 weeks or sooner as needed. Naila Escobar APRN.CNP [facility]02-24-2025 Instructions* Patient Instructions* Romy Zamorano MA - 12/23/2024 2:22 PM EST SEQUENTIAL SCREENINGS The [facility] offers sequential screenings for women who are interested in screenings for chromosomal abnormalities and certain defects during a . The sequential screen combinesultrasound and blood tests to determine the risk of chromosomal abnormalities, including Down's Syndrome (Trisomy 21) and Trisomy 18, as well as open neural tube defects including spina bifida. Ultrasound examination is performed between 11 weeks and 13 weeks gestational age. Blood tests are drawn after the ultrasound and again later in the between 15 and 21 weeks gestational age. Please let your physician know if you are interested in this testing. It will require an appointment withour battery service technician. This is not an ultrasound performed by a physician in our office during a routine visit. SIGNS AND SYMPTOMS OF LABOR 1. Contractions every 10 minutes or more often 2. Clear, pink, or brownish fluid (water) leaking from vagina 3. Feeling that baby is pushing down, pressure 4. Low, dull backache 5. Cramps that feel like a period 6. Cramps with or without diarrhea If you notice any of the above symptoms, contact our office at [phone] and ask to speak with anurse. After hours, you can call doctors registry at [phone] OR call [facility] at [phone] ask to have the doctor automation qa tester paged. If you consider this an emergency, dial 6--8 or go to your nearest emergency department. NEED HELP? Are you dealing with a violent or abusive relationship? Are you a victim of rape or sexual assult? Call [facility] ([place]) 24 hour Crisis Hotline: 434.641.9888 or 328-010-4460. MANUAL Your Guide to a Healthy manual is now on-line. Visit [email or web address] to download your free copy documented in this encounterHolmes [facility] Progress note* Quick Notes - Sheryl Bejarano APRN.MICHELLE - 12/16/2024 4:06 PM EST MARIPOSA-S: Federica Figueroa is a 34 year old female who presents at 11w0d with CAROLYN:07/07/2025, by Ultrasound for problem visit. Denies headache, visual changes, chest pain, shortness of breath, vaginal bleeding, leakage of fluid, or dysuria. No issues since pessary palace ment. Able to urinate without difficulty. Feels some pressure with bowel movement but otherwise no discomfort. Would like removed if possible. O: See flow sheet Gen: No apparent distress Abd:nontender VE:Pessary removed without difficulty. Bimanual exam completed and uterus mispositioned and not retroflexed. #4 ring with support cleaned and removed. Participation of a fellow, resident, medical student, or advanced practice provider student in performing the sensitive examination was discussed with the patient or authorized healthcare sales representative. The patient or authorized healthcare sales representative has agreed to proceed with the sensitive examination. (Sensitive examination includes inspection and/or palpation of the breasts, pelvis, prostate and anorectal regions) ASSESSMENT/PLAN: 1. Encounter for supervision of high risk in first trimester, antepartum 2. Encounter for fitting and adjustment of pessary -Pessary cleaned and returned to patient. Will leave out at this time but discussed how to insert if issue returns and to call office if any difficulty with urination. PTL precautions reviewed and when to call RTO in one week Sheryl Bejarano APRN.CNM [facility]02-17-2025 Miscellaneous Notes* Quick Notes - Sheryl Bejarano APRN.CNM - 12/16/2024 4:06 PM EST MARIPOSA-S: Federica Figueroa is a 34 year old female who presents at 11w0d with CAROLYN:07/07/2025, by Ultrasound for problem visit. Denies headache, visual changes, chest pain, shortness of breath, vaginal bleeding, leakage of fluid, or dysuria. No issues since pessary palace ment. Able to urinate without difficulty. Feels some pressure with bowel movement but otherwise no discomfort. Would like removed if possible. O: See flow sheet Gen: No apparent distress Abd:nontender VE:Pessary removed without difficulty. Bimanual exam completed and uterus mispositioned and not retroflexed. #4 ring with support cleaned and removed. Participation of a fellow, resident, medical student, or advanced practice provider student in performing the sensitive examination was discussed with the patient or authorized healthcare sales representative. The patient or authorized healthcare sales representative has agreed to proceed with the sensitive examination. (Sensitive examination includes inspection and/or palpation of the breasts, pelvis, prostate and anorectal regions) ASSESSMENT/PLAN: 1. Encounter for supervision of high risk in first trimester, antepartum 2. Encounter for fitting and adjustment of pessary -Pessary cleaned and returned to patient. Will leave out at this time but discussed how to insert if issue returns and to call office if any difficulty with urination. PTL precautions reviewed and when to call RTO in one week Sheryl Bejarano APRN.CNM documented in this encounterHolmes [facility]02[facility]17-[facility]25 Instructions* Patient Instructions* Sulaiman Weinberg MA - 12/16/2024 3:12 PM EST SEQUENTIAL SCREENINGS The [facility] offers sequential screenings for women who are interested in screenings for chromosomal abnormalities and certain defects during a . The sequential screen combinesultrasound and blood tests to determine the risk of chromosomal abnormalities, including Down's Syndrome (Trisomy 21) and Trisomy 18, as well as open neural tube defects including spina bifida. Ultrasound examination is performed between 11 weeks and 13 weeks gestational age. Blood tests are drawn after the ultrasound and again later in the between 15 and 21 weeks gestational age. Please let your physician know if you are interested in this testing. It will require an appointment withour battery service technician. This is not an ultrasound performed by a physician in our office during a routine visit. SIGNS AND SYMPTOMS OF LABOR 1. Contractions every 10 minutes or more often 2. Clear, pink, or brownish fluid (water) leaking from vagina 3. Feeling that baby is pushing down, pressure 4. Low, dull backache 5. Cramps that feel like a period 6. Cramps with or without diarrhea If you notice any of the above symptoms, contact our office at [phone] and ask to speak with anurse. After hours, you can call doctors registry at [phone] OR call [facility] at [phone] ask to have the doctor automation qa tester paged. If you consider this an emergency, dial 9-1-1 or go to your nearest emergency department. NEED HELP? Are you dealing with a violent or abusive relationship? Are you a victim of rape or sexual assult? Call [facility] ([place]) 24 hour Crisis Hotline: 854.820.8515 or 939-335-5922. MANUAL Your Guide to a Healthy manual is now on-line. Visit [email or web address] to download your free copy documented in this encounterHolmes [facility]02-10-2025 Miscellaneous Notes* Addendum Note - Yonatan Patel MD - 12/09/2024 12:52 PM ESTAddended by: YONATAN PATEL on: 12/09/2024 12:52 PM Modules accepted: Orders * Addendum Note - Kandis Salinas LPN - 12/09/2024 12:45 PM ESTAddended by: KANDIS SALINAS on: 12/09/2024 12:45 PM Modules accepted: Orders * Quick Notes - Yonatan Patel MD - 12/09/2024 11:41 AM EST at 10 weeks with difficulty initiating a stream, has to push the entire time wile voiding and then urinates for a prolonged period. Urine dip negative. Pelvic exam: Uterus is markedly retroflexed and likely somewhat entrapped. Dr. Houston was able to displace the uterus anteriorly and place a #4 platform pessary. Subsequently patient was able to initiate voiding w/o difficulty and empty completely. FHT 160 RTO 1 week Imp: Uterine entrapment/ Plan: Displace uterus and pessary fitting ftft> 50m Yonatan Patel MD documented in this encounterHolmes County [facility]02-10-2025 Note* Addendum Note - Yonatan Patel MD - 12/09/2024 12:52 PM ESTAddended by: YONATAN PATEL on: 12/09/2024 12:52 PM Modules accepted: Orders [facility] Work Phone: [phone]) 376-847102-10-2025 Note* Addendum Note - Kandis Salinas LPN - 12/09/2024 12:45 PM ESTAddended by: KANDIS SALINAS on: 12/09/2024 12:45 PM Modules accepted: Orders [facility]02-10-2025 Progress note* Quick Notes - Yonatan Patel MD - 12/09/2024 11:41 AM EST at 10 weeks with difficulty initiating a stream, has to push the entire time wile voiding and then urinates for a prolonged period. Urine dip negative. Pelvic exam: Uterus is markedly retroflexed and likely somewhat entrapped. Dr. Houston was able to displace the uterus anteriorly and place a #4 platform pessary. Subsequently patient was able to initiate voiding w/o difficulty and empty completely. FHT 160 RTO 1 week Imp: Uterine entrapment/ Plan: Displace uterus and pessary fitting ftft> 50m Yonatan Patel MD [facility]02-10-2025 Instructions* Patient Instructions* Kandis Salinas LPN - 12/09/2024 11:03 AM EST SEQUENTIAL SCREENINGS The [facility] offers sequential screenings for women who are interested in screenings for chromosomal abnormalities and certain defects during a . The sequential screen combinesultrasound and blood tests to determine the risk of chromosomal abnormalities, including Down's Syndrome (Trisomy 21) and Trisomy 18, as well as open neural tube defects including spina bifida. Ultrasound examination is performed between 11 weeks and 13 weeks gestational age. Blood tests are drawn after the ultrasound and again later in the between 15 and 21 weeks gestational age. Please let your physician know if you are interested in this testing. It will require an appointment withour battery service technician. This is not an ultrasound performed by a physician in our office during a routine visit. SIGNS AND SYMPTOMS OF LABOR 1. Contractions every 10 minutes or more often 2. Clear, pink, or brownish fluid (water) leaking from vagina 3. Feeling that baby is pushing down, pressure 4. Low, dull backache 5. Cramps that feel like a period 6. Cramps with or without diarrhea If you notice any of the above symptoms, contact our office at [phone] and ask to speak with anurse. After hours, you can call doctors registry at [phone] OR call [facility] at [phone] ask to have the doctor automation qa tester paged. If you consider this an emergency, dial or go to your nearest emergency department. NEED HELP? Are you dealing with a violent or abusive relationship? Are you a victim of rape or sexual assult? Call [facility] ([place]) 24 hour Crisis Hotline: 633.741.6258 or 115-989-1587. MANUAL Your Guide to a Healthy manual is now on-line. Visit [email or web address] to download your free copy documented in this encounterHolmes County [facility]01-31-2025 NoteHNO ID: [id number] Author: KERRY BLANCO RN Service: ? Author Type: Registered Nurse Type: Progress Notes Filed: 11/29/2024 14:57 Note Text: Scan on 11/29/2024 2:40 PM by ProviderNader PA-C: Care Center [facility]01-31-2025 History of Present illness Narrative* Kerry Blanco RN - 11/29/2024 2:54 PM EST Scan on 11/29/2024 2:40 PM by ProviderNader PA-C: Care Center documented in this encounterHolmes [facility]01-27-2025 Instructions* Patient Instructions* Romy Zamorano MA - 11/25/2024 9:25 AM EST Please select the following link to access the [facility] Your Guide to a Healthy . [email or web address] documented in this encounterHolmes County [facility]01-27-2025 NoteHNO ID: [id number] Author: NAILA ESCOBAR APRN.DENNIS Service: ? Author Type: Nurse Practitioner Type: Progress Notes Filed: 11/25/2024 10:29 Note Text: Glass Mold Repairer offered: Patient declines. INITIAL OB ASSESSMENT HPI: Federica is a 34 year old White Female here to establish Obstetrical Care. Patient's last menstrual period was 09/01/2024 (exact date). from OB Dating Form. was unplanned but accepted Complaints: Rash-noted above left breast. OB History T1 L1 SAB0 IAB0 Ectopic0 Multiple0 Live Births1 Previous history: Prior : never History of 4th degree laceration: No History of shoulder dystocia: No History of Hypertensive disorders including pre-eclampsia or gestational hypertension: No History of gestational diabetes: No Patient's Risk Screening for delivery: Have you had a prior price between 20w and 36w6d? No How many pregnancies have you had before? 1 Did you have a previous baby with a GBS Infection? No Please select all that apply for any prior : N/A MEDICAL/PSYCHOSOCIAL HISTORY: History of hemorrhage or bleeding concerns: No Thyroid Disease: No History of chronic hypertension: No History of pre-existing diabetes: No No results found for: ABORHD BMI 35.81 kg/(m2) Last Pap: History of abnormal pap: Yes Prior treatment for cervical dysplasia: none per Pt report Last HPV: History of STDs: None Partner History of STDs: None Did you have a partner with Herpes? Yes-to Right eye ONLY Tobacco use: No E-Cigarette/Vaping Use: No Caffeine use: Yes-1 cup per day Drug use: No Alcohol use: No Multivitamin with Folic acid: Yes Would refuse blood transfusion if medically necessary: No Social Needs: How often does this describe you? I don't have enough money to pay my bills: Never Within the past 12 months, have you worried that your food would run out before you had money to buy more? Never In the past 12 months, has lack of reliable transportation kept you from going to medical appointments or work, or from getting things needed for daily living? Never In the past 12 months, have you had any concerns about having a place to live, or about the condition or quality of your housing? Never Social History: Do you have any history of depression, anxiety, PTSD, or other mood problems? Yes -Depression and Anxiety Do you have a history of abuse or trauma that may impact your experience? No Are you currently employed? Yes -[employer] Depression/Anxiety Screening: denies symptoms of depression. OB Depression and Anxiety Screening- This Encounter (since 11/24/2024) Over the past 2 weeks have you felt down, depressed, or hopeless? Negative Over the past two weeks, have you felt little interest or pleasure in doing things?? Negative Feeling nervous, anxious or on edge 0-Not at all Not being able to stop or control worrying 0-Not al all Anxiety Pre-Screening Total (If >/= 3 additional questions will be reviewed) 0 Genetic Screening: Partner present: No Patient verbalized knowledge of partner family health history: Yes Do you or your partner have any personal or family history of defects not previously discussed: No Do you have history of a complicated by anomaly, genetic condition, or demise: No Preeclampsia Risk Screening: Screening for prevention of preeclampsia: High risk factors: None Moderate risk ractors: Obesity (body mass index greater than 30) OB Risk Screening: Completed, no positive findings documented. Marital Status: Partner: Name: Jose Luis Figueroa Age: 35 Occupation: Teacher Gender: Male PAST MEDICAL HISTORY History reviewed. No pertinent past medical history. PAST SURGICAL HISTORY History reviewed. No pertinent surgical history. CURRENT MEDICATIONS Current Outpatient Medications Medication Sig Dispense Refill PNV no.95/ferrous fum/folic ac ( ORAL) Take 2 Pieces of gum by mouth once daily. ALBUTEROL INHALATION Inhale 2 Inhalations as instructed as needed (WHEEZING, SHORTNESS OF BREATH). No current facility-administered medications for this visit. Allergies As of Date: 11/25/2024 Allergen Noted Reaction PENICILLINS 09/19/2023 Rash Fully Assessed 11/25/2024 Does patient have penicillin allergy: Yes, plan for allergy testing. REVIEW OF SYSTEMS: GENERAL: Negative for: Fever or Chills HEENT: Negative for: Headache, Impaired Vision, Ringing in Ears, Nosebleeds NECK: Negative for: Swelling, Pain, Stiffness RESPIRATORY: Negative for: Cough, Shortness of breath, Wheezing GASTROINTESTINAL: Negative for: Heartburn, Constipation, Diarrhea, Blood in stool + nausea MUSCULOSKELETAL: Negative for: Muscle or joint pain, stiffness, Joint swelling NEUROLOGIC/PSYCHIATRIC: Negative for: Weakness, Paralysis, Numbness, Tingling, Tremor, An (more content not included)...[facility]01-27-2025 History of Present illness Narrative* Naila Escobar APRN.RETAIL MERCHANDISING COORDINATOR - 11/25/2024 8:54 AM EST Glass Mold Repairer offered: Patient declines. INITIAL OB ASSESSMENT HPI: Federica is a 34 year old White Female here to establish Obstetrical Care. Patient's last menstrual period was 09/01/2024 (exact date). from OB Dating Form. was unplanned but accepted Complaints: Rash-noted above left breast. OB History T1 L1 SAB0 IAB0 Ectopic0 Multiple0 Live Births1 Previous history: Prior : never History of 4th degree laceration: No History of shoulder dystocia: No History of Hypertensive disorders including pre-eclampsia or gestational hypertension: No History of gestational diabetes: No Patient's Risk Screening for delivery: Have you had a prior price between 20w and 36w6d? No How many pregnancies have you had before? 1 Did you have a previous baby with a GBS Infection? No Please select all that apply for any prior : N/A MEDICAL/PSYCHOSOCIAL HISTORY: History of hemorrhage or bleeding concerns: No Thyroid Disease: No History of chronic hypertension: No History of pre-existing diabetes: No No results found for: ABORHD BMI 35.81 kg/(m^2) Last Pap: History of abnormal pap: Yes Prior treatment for cervical dysplasia: none per Pt report Last HPV: History of STDs: None Partner History of STDs: None Did you have a partner with Herpes? Yes-to Right eye ONLY Tobacco use: No E-Cigarette/Vaping Use: No Caffeine use: Yes-1 cup per day Drug use: No Alcohol use: No Multivitamin with Folic acid: Yes Would refuse blood transfusion if medically necessary: No Social Needs: How often does this describe you? I don't have enough money to pay my bills: Never Within the past 12 months, have you worried that your food would run out before you had money to buy more? Never In the past 12 months, has lack of reliable transportation kept you from going to medical appointments or work, or from getting things needed for daily living? Never In the past 12 months, have you had any concerns about having a place to live, or about the condition or quality of your housing? Never Social History: Do you have any history of depression, anxiety, PTSD, or other mood problems? Yes -Depression and Anxiety Do you have a history of abuse or trauma that may impact your experience? No Are you currently employed? Yes -[employer] Depression/Anxiety Screening: denies symptoms of depression. OB Depression and Anxiety Screening- This Encounter (since 11/24/2024) Over the past 2 weeks have you felt down, depressed, or hopeless? Negative Over the past two weeks, have you felt little interest or pleasure in doing things? Negative Feeling nervous, anxious or on edge 0-Not at all Not being able to stop or control worrying 0-Not al all Anxiety Pre-Screening Total (If >/= 3 additional questions will be reviewed) 0 Genetic Screening: Partner present: No Patient verbalized knowledge of partner family health history: Yes Do you or your partner have any personal or family history of defects not previously discussed: No Do you have history of a complicated by anomaly, genetic condition, or demise: No Preeclampsia Risk Screening: Screening for prevention of preeclampsia: High risk factors: None Moderate risk ractors: Obesity (body mass index greater than 30) OB Risk Screening: Completed, no positive findings documented. Marital Status: Partner: Name: Jose Luis Figueroa Age: 35 Occupation: Teacher Gender: Male PAST MEDICAL HISTORY History reviewed. No pertinent past medical history. PAST SURGICAL HISTORY History reviewed. No pertinent surgical history. CURRENT MEDICATIONS Current Outpatient Medications Medication Sig Dispense Refill PNV no.95/ferrous fum/folic ac ( ORAL) Take 2 Pieces of gum by mouth once daily. ALBUTEROL INHALATION Inhale 2 Inhalations as instructed as needed (WHEEZING, SHORTNESS OF BREATH). No current facility-administered medications for this visit. Allergies As of Date: 11/25/2024 Allergen Noted Reaction PENICILLINS 09/19/2023 Rash Fully Assessed 11/25/2024 Does patient have penicillin allergy: Yes, plan for allergy testing. REVIEW OF SYSTEMS: GENERAL: Negative for: Fever or Chills HEENT: Negative for: Headache, Impaired Vision, Ringing in Ears, Nosebleeds NECK: Negative for: Swelling, Pain, Stiffness RESPIRATORY: Negative for: Cough, Shortness of breath, Wheezing GASTROINTESTINAL: Negative for: Heartburn, Constipation, Diarrhea, Blood in stool + nausea MUSCULOSKELETAL: Negative for: Muscle or joint pain, stiffness, Joint swelling NEUROLOGIC/PSYCHIATRIC: Negative for: Weakness, Paralysis, Numbness, Tingling, Tremor, Anxiety, Depression, Memory loss SKIN: Negative for: Rash, Itching GENITOURINARY: Negative for: vaginal itching, vaginal discharge, hematuria or dysuria SENSITIVE EXAM: The sensitive examination was discussed with the Patient or Patient's Authorized Payable Representative. As applicable, any other physician, advance practice provider, medical student, or other health professional student that will be observing or involved in the sensitive examination for educational or training purposes was discussed with the Patient or Authorized Payable Representative. The Patient or Authorized Payable Representative has agreed to proceed with the sensitive examination. (Sensitive examination includes inspection and/or palpation of the breasts, pelvis, prostate and anorectal regions). PHYSICAL EXAM: BP 128/84 Resp 18 Ht 5' 2 (1.58m) Wt 195 lb 12.8 oz (88.8kg) LMP 09/01/2024 BMI 35.80 kg/(m^2). GENERAL: pleasant in no apparent distress DERMATOLOGY: Normal, without lesions, non-icteric, and non-hirsute NECK: Supple, full range of motion, no adenopathy, and thyroid normal CHEST: Normal inspiratory effort BREAST: soft, non-tender, symmetric, no dominant mass, normal nipple-areolar complex, no lymphadenopathy, and no nipple discharge + small crusted lesion noted to 1:00 position of right nipple, appears as eczema ABDOMEN: soft, non-tender, and no masses NEURO: alert and oriented x3,exam grossly non-focal PELVIS: External genitalia normal without lesions. Perineal body intact. No vaginal or cervical lesions. Cervix closed. Uterus 8 week size. No adnexal masses or tenderness. Clinical Pelvimetry: Pelvimetry clinically assessed as adequate Limited OB ultrasound exam: single intrauterine and positive cardiac activity I attest that I was present, not working on other tasks, and directing the student during this visit. I have reviewed and agree with the above documentation of this student. Naila Escobar, SANITATION WORKER CLEANING MACHINERY.RETAIL MERCHANDISING COORDINATOR ASSESSMENT: 34 year old at 12w1d wks gestational age PLAN: 1) Patient oriented to practice. Patient given new OB orientation folder. Discussed nutrition, folic acid supplementation, dietary guidelines, exercise, smoking, alcohol, caffeine, and drug use. Discussed gestational weight gain guidelines. Discussed routine OB labs including STD/HIV. Discussed how to access Your guide to a health and the Director Of Health Education. Discussed hemoglobin electrophoresis. Patient: Accepts Reviewed midwifery and activities therapist services that are available. 2) Screening: Hemoglobin A1C: ordered Baby Aspirin: The patient has been counseled about the potential benefits of low dose aspirin in and our recommendation that this be offered to all patients, regardless of whether they meet the high risk criteria specified above. She Accepts Aneuploidy Screening: Discussed aneuploidy screening, nuchal translucency/first trimester early anatomy ultrasound and NIPT. The risks/benefits and limitations of NIPT/aneuploidy screening were reviewed including the potential for false negative and false positive results. The availability of genetic counseling was reviewed. Information on aneuploidy screening was provided. The patient chooses toproceed with First trimester early anatomy ultrasound (12-13w6d) [facility] Carrier Screening: Discussed myriad carrier screening. We discussed the availability of professional-society guided carrier screening and reviewed the conditions screened and limitations of screening. The availability of genetic counseling was reviewed. Information on carrier screening was provided. The patient accepts 3) Patient offered option of Virtual Visits. Patient unsure. May consider in future. ACTIVE PROBLEM LIST Encounter for Supervision of High Risk in First Trimester, Antepartum - 11/25/2024 Comment: Care Checklist Vaccines: [] Flu vaccine [] declined [] RSV vaccine 32 0/ - 36 04/05 (Jun - Nov) [] declined [] COVID vaccine [] declined [] TDaP -36 [] declined First trimester: [x] Dating US [] 1st tri labs [x] Pap smear [x] Carrier screening [] declined [x] NIPT screening [] declined [x] First trimester anatomy scan [] declined [x] universal ASA ordered (start 12w-16w) [] declined [] M Power Consult [] not indicated [] declined Second trimester: [] Anatomy scan [] Mode of Delivery - [] Feeding - [] Pump ordered [] Diabetes screen [] CBC, RPR [] Behavioral Health Screening Third trimester (28-30 weeks): [] Consent [] Contraception [] Professional Services Specialist [] TeamBirth handout Third trimester (36-40 weeks): [] GBS [] Presentation - [] Scheduled [] yes - Hibiclens, pre-op instructions, CBC, T&S ordered [] no [] H&P [] Preferences worksheet [] Scanned in EMR With Uncertain Dates in First Trimester - 11/25/2024 Comment: November 25, 2024 POCUS not consistent with LMP. Confirm dating with NT. Naila Escobar APRN.CNP Nausea and Vomiting During - 11/25/2024 Comment: 11/25/24 Vitamin B6 and Unisom doses reviewed. To notify if prescription is needed. Naila Escobar APRN.CNP History of Depression - 11/25/2024 Comment: November 25, 2024 Coping well at this time. PHQ2/TRINO negative To update throughout . Naila Escobar APRN.RETAIL MERCHANDISING COORDINATOR Skin Lesion of Breast - 11/25/2024 Comment: November 25, 2024 Trial hydrocortisone cream. To notify if persistent. Recommend seeing dermatology. Known history of eczema. Naila Escobar APRN.CNP Obesity Affecting in First Trimester - 11/25/2024 Comment: -Pre BMI 35 - Plan for 32 week growth q 4 weeks. - Weekly NSTs at 36 weeks. Asthma Affecting in First Trimester - 11/25/2024 Comment: November 25, 2024 Uses Albuterol PRN. Avoid Hemabate with delivery. Naila Escobar APRN.CNP Penicillin Allergy - 11/25/2024 Comment: November 25, 2024 Consider Penicillin allergy consult. Naila Escobar APRN.CNP Follow up in 4 weeks or sooner prn. Plan for NT scan between 12w0d and 13w6d gestation. Naila Escobar APRN.CNP documented in this [facility]Hol[facility] NoteHNO ID: [id number] Author: AMPARO HAGER APRN.CNP Service: ? Author Type: Nurse Practitioner Type: Progress Notes Filed: 11/29/2024 07:44 Note Text: INITIAL OB ASSESSMENT HPI: Federica is a 34 year old White Female here to establish Obstetrical Care. Patient's last menstrual period was 09/01/2024 (exact date). from OB Dating Form. was unplanned but accepted Complaints: Rash-noted above left breast. OB History T1 L1 SAB0 IAB0 Ectopic0 Multiple0 Live Births1 Previous history: Prior : never History of 4th degree laceration: No History of shoulder dystocia: No History of Hypertensive disorders including pre-eclampsia or gestational hypertension: No History of gestational diabetes: No Patient's Risk Screening for delivery: Have you had a prior price between 20w and 36w6d? No How many pregnancies have you had before? 1 Did you have a previous baby with a GBS Infection? No Please select all that apply for any prior : N/A MEDICAL/PSYCHOSOCIAL HISTORY: History of hemorrhage or bleeding concerns: No Thyroid Disease: No History of chronic hypertension: No History of pre-existing diabetes: No No results found for: ABORHD BMI 35.81 kg/(m2) Last Pap: History of abnormal pap: Yes Prior treatment for cervical dysplasia: none per Pt report Last HPV: History of STDs: None Partner History of STDs: None Did you have a partner with Herpes? Yes-to Right eye ONLY Tobacco use: No E-Cigarette/Vaping Use: No Caffeine use: Yes-1 cup per day Drug use: No Alcohol use: No Multivitamin with Folic acid: Yes Would refuse blood transfusion if medically necessary: No Social Needs: How often does this describe you? I don't have enough money to pay my bills: Never Within the past 12 months, have you worried that your food would run out before you had money to buy more? Never In the past 12 months, has lack of reliable transportation kept you from going to medical appointments or work, or from getting things needed for daily living? Never In the past 12 months, have you had any concerns about having a place to live, or about the condition or quality of your housing? Never Would you like more information on any of the following (please check all that apply)? Social History: Do you have any history of depression, anxiety, PTSD, or other mood problems? Yes -Depression and Anxiety Do you have a history of abuse or trauma that may impact your experience? No Are you currently employed? Yes -[employer] Depression/Anxiety Screening: denies symptoms of depression. OB Depression and Anxiety Screening- This Encounter (since 11/24/2024) Over the past 2 weeks have you felt down, depressed, or hopeless? Negative Over the past two weeks, have you felt little interest or pleasure in doing things?? Negative Feeling nervous, anxious or on edge 0-Not at all Not being able to stop or control worrying 0-Not al all Anxiety Pre-Screening Total (If >/= 3 additional questions will be reviewed) 0 Genetic Screening: Partner present: Patient verbalized knowledge of partner family health history: Yes Do you or your partner have any personal or family history of defects not previously discussed: No Do you have history of a complicated by anomaly, genetic condition, or demise: No Preeclampsia Risk Screening: Screening for prevention of preeclampsia: High risk factors: Moderate risk ractors: OB Risk Screening: Completed, no positive findings documented. 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 No pertinent past medical history. History reviewed. No pertinent surgical history. Current Outpatient Medications Medication Sig Dispense Refill PNV no.95/ferrous fum/folic ac ( ORAL) Take 2 Pieces of gum by mouth once daily. ALBUTEROL INHALATION Inhale 2 Inhalations as instructed as needed (WHEEZING, SHORTNESS OF BREATH). No current facility-administered medications for this visit. Allergies As of Date: 11/25/2024 Allergen Noted Reaction PENICILLINS 09/19/2023 Rash Fully Assessed 11/25/2024 Does patient have penicillin allergy: Yes, plan for allergy testing. SENSITIVE EXAM: The sensitive examination was discussed with the Patient or Patient's Authorized Payable Representative. As applicable, any other physician, advance practice provider, medical student, or other health professional student that will be observing or involved in the sensitive examination for educational or training purposes was discussed with the Patient or Authorized Payable Representative. The Patient or Authorized Payable Representative has agreed to proceed with the sensitive examination. (Sensitive examination includes inspection and/or palpation of the breasts, pelvis, pro (more content not included)... [facility]01-24-2025 Telephone encounter Note* Telephone Encounter - Cammie Andrews MA - 11/22/2024 1:23 PM EST Left 2nd message on Pt voicemail. The call was intended to go over new ob intake questions for upcoming appointment. Patient was asked if she could call back and ask to speak to a women's health Faith Clarke. Patient was advised if she is unable to call back, we ask that she arrive 30 minutes prioron the day of her appointment. Cammie Andrews MA [facility]01-22-2025 Telephone encounter Note* Telephone Encounter - Kerry Blanco RN - 11/20/2024 12:14 PM EST Patient called back. Only available until 12:30 today. Aware that she will need to arrive 30 min prior to her NOB if she is not able to do intake questions on the phone. Kerry Blanco RN [facility]01-22-2025 Miscellaneous Notes* Telephone Encounter - Kerry Blanco RN - 11/20/2024 12:14 PM EST Patient called back. Only available until 12:30 today. Aware that she will need to arrive 30 min prior to her NOB if she is not able to do intake questions on the phone. Kerry Blanco RN * Telephone Encounter - Tricia Preez RN - 11/20/2024 9:44 AM EST Called Pt; however, Pt in a work training at the moment and unable to answer new OB intake questions at this time. Will try and call back during her lunch hour today. If unable to get questions answered prior to her appointment on Monday, but will arrive 30 minutes prior to her new OB appointment to allow time for questions and will arrive with full bladder for urine specimen. Tricia Perez RN documented in this encounterHol[facility] Telephone encounter Note * Telephone Encounter - Tricia Perez RN - 11/20/2024 9:44 AM EST Called Pt; however, Pt in a work training at the moment and unable to answer new OB intake questions at this time. Will try and call back during her lunch hour today. If unable to get questions answered prior to her appointment on Monday, but will arrive 30 minutes prior to her new OB appointment to allow time for questions and will arrive with full bladder for urine specimen. Tricia Perez RN [facility]01-08-[facility]24 History of Present illness Narrative* Mandy Plascencia PA-C - 11/06/2023 3:10 PM EST Subjective Patient ID: Federica Figueroa is a 33 y.o. female who presents for Wheezing (Patient wheezing, cough, x 6 days.). HPI Patient presents evaluation of cough. Patient reports 1 week of cough, wheezing, and chest congestion without fever, chills, nausea, diarrhea, or other constitutional signs and symptoms. Patient has been using albuterol with some relief. No other complaints. Review of Systems Constitutional: See HPI ENT: See HPI Respiratory: See HPI Neurologic: Alert and oriented X4, No numbness, No tingling. All other systems are negative Objective BP (!) 156/94 Pulse 98 Temp 36.4 C (97.5 F) (Temporal) Ht 1.575 m (5' 2) Wt 88.5 kg (195 lb) SpO2 94% BMI 35.67 kg/m Physical Exam General: Alert and oriented, No acute distress. Eye: Pupils are equal, round and reactive to light, Extraocular movements are intact, Normal conjunctiva. HENT: Normocephalic, Normal hearing, Oral mucosa is moist, No pharyngeal erythema, No sinus tenderness. Neck: Supple, Non-tender, No lymphadenopathy. Respiratory: Bilateral scattered wheezing and rhonchi; no rales; respirations are non-labored, Cardiovascular: Normal rate, Regular rhythm. Gastrointestinal: Non-distended. Musculoskeletal: Normal range of motion, Normal strength, No tenderness, No swelling, No deformity,Normal gait. Integumentary: Warm, Dry, Intact, No pallor, No rash. Neurologic: Alert, Oriented, Normal sensory, Normal motor function, No focal deficits, Cranial Nerves II-XII are grossly intact Psychiatric: Cooperative, Appropriate mood & affect. Assessment/Plan Acute asthmatic bronchitis: Z-Emory, prednisone taper, and Bromfed. Continue albuterol as needed. Follow-up as scheduled or as needed. Problem List Items Addressed This Visit None Visit Diagnoses Acute asthmatic bronchitis - Primary Relevant Medications azithromycin (Zithromax) 250 mg tablet predniSONE (Deltasone) 10 mg tablet jquqtbvxkfsiphw-smmcwsjac-BR (Bromfed DM) 2-30-10 mg/5 mL syrup Final diagnoses: [J45.909] Acute asthmatic bronchitis [facility] Work Phone: 1(502) 665-961511-21-2023 History of Present illness Narrative* Mandy Plascencia PA-C - 09/19/2023 3:30 PM EST Subjective Patient ID: Federica Figueroa is a 33 y.o. female who presents for [facility] (Patient here toget established as an new patient and states PCP left the practice at [facility]./Patient states has seen counselor in [place] and told her to follow up with PCP for anxiety./Pap done 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 HPI Patient presents to [facility] care. Patient has medical history of asthma, iron deficiency anemia, and PCOS. Currently, patient uses albuterol in management of these. Patient presents to discuss anxiety and possible OCD. Patient reports longstanding history of anxiety but largely revolves around germophobia. Patient has a very difficult time with this. Patient reports inability to touch things other people of touch without cleaning them. Patient washes hands excessively. Patient is in counseling and has been for some time as this can be debilitating at times. Patient states this has always been present to some degree but was exacerbated greatly by COVID. Patient requesting evaluation and treatment of this. Patient also reports longstanding history of headaches. Patient states that the headaches can starton either side but usually both in a clamp like pattern. Patient has not been treated for this before. Patient does report some photophobia and mild nausea. Review of Systems Constitutional: See HPI Eye: No recent visual problem. Respiratory: No shortness of breath, No cough. Cardiovascular: No chest pain. Gastrointestinal: No abdominal pain, No nausea, No vomiting. Genitourinary: No dysuria, No hematuria. Musculoskeletal: No decreased range of motion. Integumentary: No rash. Neurologic: Alert and oriented X4, No numbness, No tingling. All other systems are negative Objective BP 137/83 Pulse 87 Temp 36.5 C (97.7 F) (Temporal) Ht 1.575 m (5' 2) Wt 86.8 kg (191 lb 6.4 oz) SpO2 96% BMI 35.01 kg/m Physical Exam General: Alert and oriented, No acute distress. Eye: Pupils are equal, round and reactive to light, Extraocular movements are intact, Normal conjunctiva. HENT: Normocephalic, Normal hearing, Oral mucosa is moist, No pharyngeal erythema, No sinus tenderness. Neck: Supple, Non-tender, No lymphadenopathy. Respiratory: Lungs are clear to auscultation, Respirations are non-labored, Breath sounds are equal Cardiovascular: Normal rate, Regular rhythm. Gastrointestinal: Non-distended. Musculoskeletal: Normal range of motion, Normal strength, No tenderness, No swelling, No deformity,Normal gait. Integumentary: Warm, Dry, Intact, No pallor, No rash. Neurologic: Alert, Oriented, Normal sensory, Normal motor function, No focal deficits, Cranial Nerves II-XII are grossly intact Psychiatric: Cooperative, Appropriate mood & affect. Assessment/Plan Iron deficiency anemia: Patient had labs drawn earlier this year the patient was iron deficient anemic. Start ferrous sulfate every other day. We will draw another CBC in 6 months. Anxiety and possible OCD: Patient does have some CBT in progress. Start Celexa 10 mg daily. Follow-up 1 month Tension headaches: It is possible they are migraines however, the patient's description is not consistent with this. Wrote for Fioricet for the patient to try. Problem List Items Addressed This Visit None Visit Diagnoses Other iron deficiency anemia - Primary Relevant Medications ferrous sulfate 325 (65 Fe) MG EC tablet PCOS (polycystic ovarian syndrome) Anxiety Relevant Medications citalopram (CeleXA) 10 mg tablet Tension headache Relevant Medications tctfnjpsgb-ppvkawfhiplof-dvgy 50-325-40 mg tablet Final diagnoses: [D50.8] Other iron deficiency anemia [E28.2] PCOS (polycystic ovarian syndrome) [F41.9] Anxiety [G44.209] Tension headache documented in this [facility] Work Phone: 1(239) 639-157406-02-2023 History of Present illness Narrative* Zachariah Vargas MD - 03/31/2023 1:30 PM EDT Images from the original note were not included. Subjective Patient ID: Federica Figueroa is a 32 y.o. female. Having some increase pain on the left side - ear and scratchy throat - has been doing a lot of talking - note some post nasal drainage - some laryngitis - some itching on legs Has not had any known exposures was out in some high grass rash seems to just be on the knees and below The following portions of the patient's history were reviewed and updated as appropriate: allergies, current medications, past family history, past medical history, past social history, past surgicalhistory, and problem list. Review of Systems Constitutional: Negative for chills, diaphoresis and fever. HENT: Positive for ear pain. Negative for congestion and sinus pain. Eyes: Negative for redness. Respiratory: Negative for cough, shortness of breath and wheezing. Cardiovascular: Negative for chest pain. Gastrointestinal: Negative for diarrhea, nausea and vomiting. Endocrine: Negative for polydipsia. Genitourinary: Negative for frequency and hematuria. Musculoskeletal: Negative for back pain. Skin: Positive for rash. Neurological: Negative for weakness and headaches. Psychiatric/Behavioral: Negative for confusion. Objective Physical Exam Vitals reviewed. Constitutional: General: She is awake. Appearance: Normal appearance. She is well-developed. HENT: Head: Normocephalic and atraumatic. Right Ear: Tympanic membrane and ear canal normal. Left Ear: Tympanic membrane and ear canal normal. Nose: Nose normal. Eyes: General: Lids are normal. Extraocular Movements: Extraocular movements intact. Pupils: Pupils are equal, round, and reactive to light. Cardiovascular: Rate and Rhythm: Normal rate and regular rhythm. Heart sounds: S1 normal and S2 normal. No murmur heard. No friction rub. No gallop. Pulmonary: Effort: Pulmonary effort is normal. No tachypnea. Breath sounds: Normal breath sounds. No stridor or decreased air movement. No wheezing, rhonchi or rales. Skin: Comments: Bilateral lower extremities with erythematous rash linear Neurological: Mental Status: She is alert. Gait: Gait is intact. Psychiatric: Behavior: Behavior is cooperative. Assessment/Plan: Diagnoses and all orders for this visit: Upper respiratory tract infection, unspecified type - predniSONE (DELTASONE) 10 MG tablet; Take 1 (one) tablet (10 mg total) by mouth 3 (three) times aday for 7 days . Other atopic dermatitis Likey related to allergy /URI - with linear appearance may be mites - if worsens call will do elimite lotaida Vargas M.D. For any new medications prescribed today, patient was educated about indications for the medication, how to take the medication and potential side effects of the medications. documented in this [id number] Note* Addendum Note - Binh Edward MA - 02/08/2023 1:41 PM EDTAddended by: BINH EDWARD on: 02/08/2023 01:41 PM Modules accepted: Orders [id number] Miscellaneous Notes* Addendum Note - Binh Edward MA - 02/08/2023 1:41 PM EDTAddended by: BINH EDWARD on: 02/08/2023 01:41 PM Modules accepted: Orders * Assessment & Plan Note - Rosalina Muñiz MD - 12/28/2022 1:21 PM ESTAssociated Problem(s): Obesity (BMI 30-39.9) Obesity: Body mass index is 32.56 kg/m .. Recommended therapeutic lifestyle changes including healthy diet starting with a 500 calorie deficit/day and 30-60 min of exercise at least 3 times/week to help with weight loss. Patient can advance exercise regiment as tolerated. Types of exercise include strength training (cross fit, QUENTIN, weight lifting) or aerobic exercise(/brisk walk/jogging/running)or a combination of both. adipex discontinued-ineffective Will prescribe contrave -follow up in 4 weeks If pt does not have 5% weight loss in 3 months, we will discontinue * Assessment & Plan Note - Rosalina Muñiz MD - 12/28/2022 1:21 PM ESTAssociated Problem(s): Otalgia of both ears Flonase daily Use mucinex for congestion Rrdv-juk-voshfnh Cepacol or Ricola lozenges for sore throat Drink warm liquids like tea with honey, soups and take warm steam showers to help soothe your symptoms Hydration, rest promoted. For viral infections-symptoms tend to improve within 7 to 10 days. * Assessment & Plan Note - Rosalina Muñiz MD - 12/28/2022 11:45 AM ESTAssociated Problem(s): Post-nasal drip documented in this [id number] Evaluation + Plan note* Assessment & Plan Note - Rosalina Muñiz MD - 12/28/2022 1:21 PM ESTAssociated Problem(s): Obesity (BMI 30-39.9) Obesity: Body mass index is 32.56 kg/m .. Recommended therapeutic lifestyle changes including healthy diet starting with a 500 calorie deficit/day and 30-60 min of exercise at least 3 times/week to help with weight loss. Patient can advance exercise regiment as tolerated. Types of exercise include strength training (cross fit, QUENTIN, weight lifting) or aerobic exercise(/brisk walk/jogging/running)or a combination of both. adipex discontinued-ineffective Will prescribe contrave -follow up in 4 weeks If pt does not have 5% weight loss in 3 months, we will discontinue [id number] Evaluation + Plan note* Assessment & Plan Note - Rosalina Muñiz MD - 12/28/2022 1:21 PM ESTAssociated Problem(s): Otalgia of both ears Flonase daily Use mucinex for congestion Ussu-jgp-qsetjzs Cepacol or Ricola lozenges for sore throat Drink warm liquids like tea with honey, soups and take warm steam showers to help soothe your symptoms Hydration, rest promoted. For viral infections-symptoms tend to improve within 7 to 10 days. [id number] Miscellaneous Notes* Assessment & Plan Note - Rosalina Muñiz MD - 12/28/2022 1:21 PM ESTAssociated Problem(s): Obesity (BMI 30-39.9) Obesity: Body mass index is 32.56 kg/m .. Recommended therapeutic lifestyle changes including healthy diet starting with a 500 calorie deficit/day and 30-60 min of exercise at least 3 times/week to help with weight loss. Patient can advance exercise regiment as tolerated. Types of exercise include strength training (cross fit, QUENTIN, weight lifting) or aerobic exercise(/brisk walk/jogging/running)or a combination of both. adipex discontinued-ineffective Will prescribe contrave -follow up in 4 weeks If pt does not have 5% weight loss in 3 months, we will discontinue * Assessment & Plan Note - Rosalina Muñiz MD - 12/28/2022 1:21 PM ESTAssociated Problem(s): Otalgia of both ears Flonase daily Use mucinex for congestion Xfno-nmg-bjjtyct Cepacol or Ricola lozenges for sore throat Drink warm liquids like tea with honey, soups and take warm steam showers to help soothe your symptoms Hydration, rest promoted. For viral infections-symptoms tend to improve within 7 to 10 days. * Assessment & Plan Note - Rosalina Muñiz MD - 12/28/2022 11:45 AM ESTAssociated Problem(s): Post-nasal drip documented in this [id number] Evaluation + Plan note* Assessment & Plan Note - Rosalina Muñiz MD - 12/28/2022 11:45 AM ESTAssociated Problem(s): Post-nasal drip [id number] History of Present illness Narrative* Rosalina Muñiz MD - 12/28/2022 11:20 AM EST Assessment Assessment/Plan: Problem List Obesity (BMI 30-39.9) Obesity: Body mass index is 32.56 kg/m .. Recommended therapeutic lifestyle changes including healthy diet starting with a 500 calorie deficit/day and 30-60 min of exercise at least 3 times/week to help with weight loss. Patient can advance exercise regiment as tolerated. Types of exercise include strength training (cross fit, QUENTIN, weight lifting) or aerobic exercise(/brisk walk/jogging/running)or a combination of both. adipex discontinued-ineffective Will prescribe contrave -follow up in 4 weeks If pt does not have 5% weight loss in 3 months, we will discontinue Otalgia of both ears Flonase daily Use mucinex for congestion Vesf-eef-avubkvg Cepacol or Ricola lozenges for sore throat Drink warm liquids like tea with honey, soups and take warm steam showers to help soothe your symptoms Hydration, rest promoted. For viral infections-symptoms tend to improve within 7 to 10 days. Return in about 4 weeks (around 01/25/2023). For any new medications prescribed today, patient was educated about indications for the medication, how to take the medication and potential side effects of the medications. Rosalina Muñiz MD [facility] [address] [facility] [address] [facility] [id number] Dept: [phone] Subjective Chief Complaint Patient presents with Follow-up Otalgia HPI Federica Figueroa is a 32 y.o. female with a PMHx of infertility, obesity, presenting for weightloss Obesity: Initial weight: 181lbs Current weight: 178lbs Insurance denied wegovy. We had extensive discussion about options available- pt was interested in naltrxone-bupropion No hx of seizures,severe depression, SI, no hx of opioid use/etoh abuse Completed 2 months of adipex--> will discontinue as it is ineffective Feels discouraged because she has been decreasing calories and started working out. Has hx of pcos and infertility- was on metformin but this did not help her pcos Recommended therapeutic lifestyle changes including healthy diet starting with a 500 calorie deficit/day and 30-60 min of exercise at least 3 times/week to help with weight loss. Patient can advance exercise regiment as tolerated. Otalgia- This is a new complaint. The current episode started in the past 4- 5day(s). The problem has is unchanged. Associated symptoms include bilateral ear congestion .Pertinent negatives include: No sinus pressure, headache, ear drainage, difficulty hearing, fever, chills, cough, wheezing, sore throat, nasal congestion. Has not tried any OTC medications All pertinent positives and negatives are documented in ROS Patient's medications, allergies, past medical history, surgical history history, family history, social history were reviewed. Spent more than 20 minutes with patient, coordinating patient care, including reviewing charts and counseling patient. Past Medical History: Diagnosis Date Asthma Migraine Sinusitis 11/05/2021 No past surgical history on file. Family History Problem Relation Age of Onset Hypertension Mother Social History Tobacco Use Smoking status: Never Smokeless tobacco: Never Vaping Use Vaping Use: Never used Substance Use Topics Alcohol use: Never Drug use: Never Allergies Allergen Reactions Penicillins Rash Patient's Medications New Prescriptions NALTREXONE-BUPROPION 8-90 MG TBER Take with meals Take 1 tab AM X 7 days, then 1 tab BID X 7 days, then 2 tab AM and 1 tab PM X 7 days, then 2tab BID t . Previous Medications ALBUTEROL (VENTOLIN HFA) 90 MCG/ACTUATION INHALER Inhale 2 (two) puffs every 4 (four) hours as needed for wheezing or shortness of breath . APRI 0.15-0.03 MG PER TABLET CHOLECALCIFEROL, VITAMIN D3, 50 MCG (2,000 UNIT) TAB Take 1 (one) tablet (2,000 Units total) by mouth daily Start after completion of vit D 50,000 IU . ERGOCALCIFEROL (ERGOCALCIFEROL) 1,250 MCG (50,000 UNIT) CAPSULE Take 1 (one) capsule (50,000 Units total) by mouth once a week for 24 doses . FERROUS SULFATE 325 (65 FE) MG TABLET Take 1 (one) tablet (325 mg total) by mouth daily with breakfast . METFORMIN (GLUCOPHAGE-XR) 750 MG 24 HR TABLET Take 1 (one) tablet (750 mg total) by mouth 2 (two) times a day . PHENTERMINE (ADIPEX-P) 37.5 MG TABLET Take 1 (one) tablet (37.5 mg total) by mouth every morning . PHENTERMINE (ADIPEX-P) 37.5 MG TABLET Take 1 (one) tablet (37.5 mg total) by mouth every morning . VITAMIN WITH CA-IRON-FA 27-1 MG TAB Take 1 (one) tablet by mouth daily . SEMAGLUTIDE, WEIGHT LOSS, (WEGOVY) 0.25 MG/0.5 ML PEN Inject 0.5 mL (0.25 mg total) under the skin every 7 days . Modified Medications No medications on file Discontinued Medications No medications on file Objective Vitals: 12/28/22 1130 12/28/22 1131 BP: (!) 146/89 131/88 BP Location: Right arm Right arm Patient Position: Sitting Sitting BP Cuff Size: X-large Adult X-large Adult Pulse: 84 (!) 101 Resp: 16 Temp: 98 F (36.7 C) TempSrc: Temporal SpO2: 99% Weight: 80.7 kg (178 lb) Height: 5' 2 Estimated body mass index is 32.56 kg/m as calculated from the following: Height as of this encounter: 5' 2. Weight as of this encounter: 80.7 kg (178 lb). Physical Exam Constitutional: Appearance: Normal appearance. She is obese. HENT: Head: Normocephalic and atraumatic. Right Ear: No drainage or tenderness. No middle ear effusion. Tympanic membrane is not perforated or erythematous. Left Ear: No drainage or tenderness. No middle ear effusion. Tympanic membrane is not perforated orerythematous. Ears: Comments: Bilateral ear congestion Erythema worse on R than on left No drainage Mouth/Throat: Mouth: Mucous membranes are moist. Pharynx: Oropharynx is clear. No pharyngeal swelling or posterior oropharyngeal erythema. Eyes: Extraocular Movements: Extraocular movements intact. Pupils: Pupils are equal, round, and reactive to light. Cardiovascular: Rate and Rhythm: Normal rate and regular rhythm. Pulmonary: Effort: Pulmonary effort is normal. Breath sounds: Normal breath sounds. Skin: General: Skin is warm. Neurological: General: No focal deficit present. Mental Status: She is alert and oriented to person, place, and time. Mental status is at baseline. Psychiatric: Mood and Affect: Mood normal. Behavior: Behavior normal. Thought Content: Thought content normal. Judgment: Judgment normal. PHQ9: TRINO-7 Tobacco Counseling: Counseling given: Not Answered documented in this [id number] History of Present illness Narrative* Rosalina Muñiz MD - 12/28/2022 11:20 AM EST Assessment Assessment/Plan: Problem List Obesity (BMI 30-39.9) Obesity: Body mass index is 32.56 kg/m .. Recommended therapeutic lifestyle changes including healthy diet starting with a 500 calorie deficit/day and 30-60 min of exercise at least 3 times/week to help with weight loss. Patient can advance exercise regiment as tolerated. Types of exercise include strength training (cross fit, QUENTIN, weight lifting) or aerobic exercise(/brisk walk/jogging/running)or a combination of both. adipex discontinued-ineffective Will prescribe contrave -follow up in 4 weeks If pt does not have 5% weight loss in 3 months, we will discontinue Otalgia of both ears Flonase daily Use mucinex for congestion Vkgw-ylr-edqqcjc Cepacol or Ricola lozenges for sore throat Drink warm liquids like tea with honey, soups and take warm steam showers to help soothe your symptoms Hydration, rest promoted. For viral infections-symptoms tend to improve within 7 to 10 days. Return in about 4 weeks (around 01/25/2023). For any new medications prescribed today, patient was educated about indications for the medication, how to take the medication and potential side effects of the medications. Rosalina Muñiz MD [facility] [address] [facility] [address] [facility] [address] Dept: [phone] Subjective Chief Complaint Patient presents with Follow-up Otalgia HPI Federica Figueroa is a 32 y.o. female with a PMHx of infertility, obesity, presenting for weightloss Obesity: Initial weight: 181lbs Current weight: 178lbs Insurance denied wegovy. We had extensive discussion about options available- pt was interested in naltrxone-bupropion No hx of seizures,severe depression, SI, no hx of opioid use/etoh abuse Completed 2 months of adipex--> will discontinue as it is ineffective Feels discouraged because she has been decreasing calories and started working out. Has hx of pcos and infertility- was on metformin but this did not help her pcos Recommended therapeutic lifestyle changes including healthy diet starting with a 500 calorie deficit/day and 30-60 min of exercise at least 3 times/week to help with weight loss. Patient can advance exercise regiment as tolerated. Otalgia- This is a new complaint. The current episode started in the past 4- 5day(s). The problem has is unchanged. Associated symptoms include bilateral ear congestion .Pertinent negatives include: No sinus pressure, headache, ear drainage, difficulty hearing, fever, chills, cough, wheezing, sore throat, nasal congestion. Has not tried any OTC medications All pertinent positives and negatives are documented in ROS Patient's medications, allergies, past medical history, surgical history history, family history, social history were reviewed. Spent more than 20 minutes with patient, coordinating patient care, including reviewing charts and counseling patient. Past Medical History: Diagnosis Date Asthma Migraine Sinusitis 11/05/2021 No past surgical history on file. Family History Problem Relation Age of Onset Hypertension Mother Social History Tobacco Use Smoking status: Never Smokeless tobacco: Never Vaping Use Vaping Use: Never used Substance Use Topics Alcohol use: Never Drug use: Never Allergies Allergen Reactions Penicillins Rash Patient's Medications New Prescriptions NALTREXONE-BUPROPION 8-90 MG TBER Take with meals Take 1 tab AM X 7 days, then 1 tab BID X 7 days, then 2 tab AM and 1 tab PM X 7 days, then 2tab BID t . Previous Medications ALBUTEROL (VENTOLIN HFA) 90 MCG/ACTUATION INHALER Inhale 2 (two) puffs every 4 (four) hours as needed for wheezing or shortness of breath . APRI 0.15-0.03 MG PER TABLET CHOLECALCIFEROL, VITAMIN D3, 50 MCG (2,000 UNIT) TAB Take 1 (one) tablet (2,000 Units total) by mouth daily Start after completion of vit D 50,000 IU . ERGOCALCIFEROL (ERGOCALCIFEROL) 1,250 MCG (50,000 UNIT) CAPSULE Take 1 (one) capsule (50,000 Units total) by mouth once a week for 24 doses . FERROUS SULFATE 325 (65 FE) MG TABLET Take 1 (one) tablet (325 mg total) by mouth daily with breakfast . METFORMIN (GLUCOPHAGE-XR) 750 MG 24 HR TABLET Take 1 (one) tablet (750 mg total) by mouth 2 (two) times a day . PHENTERMINE (ADIPEX-P) 37.5 MG TABLET Take 1 (one) tablet (37.5 mg total) by mouth every morning . PHENTERMINE (ADIPEX-P) 37.5 MG TABLET Take 1 (one) tablet (37.5 mg total) by mouth every morning . VITAMIN WITH CA-IRON-FA 27-1 MG TAB Take 1 (one) tablet by mouth daily . SEMAGLUTIDE, WEIGHT LOSS, (WEGOVY) 0.25 MG/0.5 ML PEN Inject 0.5 mL (0.25 mg total) under the skin every 7 days . Modified Medications No medications on file Discontinued Medications No medications on file Objective Vitals: 12/28/22 1130 12/28/22 1131 BP: (!) 146/89 131/88 BP Location: Right arm Right arm Patient Position: Sitting Sitting BP Cuff Size: X-large Adult X-large Adult Pulse: 84 (!) 101 Resp: 16 Temp: 98 F (36.7 C) TempSrc: Temporal SpO2: 99% Weight: 80.7 kg (178 lb) Height: 5' 2 Estimated body mass index is 32.56 kg/m as calculated from the following: Height as of this encounter: 5' 2. Weight as of this encounter: 80.7 kg (178 lb). Physical Exam Constitutional: Appearance: Normal appearance. She is obese. HENT: Head: Normocephalic and atraumatic. Right Ear: No drainage or tenderness. No middle ear effusion. Tympanic membrane is not perforated or erythematous. Left Ear: No drainage or tenderness. No middle ear effusion. Tympanic membrane is not perforated orerythematous. Ears: Comments: Bilateral ear congestion Erythema worse on R than on left No drainage Mouth/Throat: Mouth: Mucous membranes are moist. Pharynx: Oropharynx is clear. No pharyngeal swelling or posterior oropharyngeal erythema. Eyes: Extraocular Movements: Extraocular movements intact. Pupils: Pupils are equal, round, and reactive to light. Cardiovascular: Rate and Rhythm: Normal rate and regular rhythm. Pulmonary: Effort: Pulmonary effort is normal. Breath sounds: Normal breath sounds. Skin: General: Skin is warm. Neurological: General: No focal deficit present. Mental Status: She is alert and oriented to person, place, and time. Mental status is at baseline. Psychiatric: Mood and Affect: Mood normal. Behavior: Behavior normal. Thought Content: Thought content normal. Judgment: Judgment normal. PHQ9: TRINO-7 Tobacco Counseling: Counseling given: Not Answered documented in this [id number] History of Present illness Narrative* Vaishali Hilario LPN - 12/22/2022 3:33 PM EST Documentation received from [employer] denying coverage for [employer]. Pt has to try and fail other therapies for weight loss first. Documentation scanned to chart and forwarded to Dr. Muñiz for further review and advisement. documented in this [id number] Instructions* Patient Instructions* Rosalina Muñiz MD - 12/12/2022 7:22 PM EST Problem List Items Addressed This Visit Endocrine PCOS (polycystic ovarian syndrome) - Primary Relevant Medications semaglutide, weight loss, (Wegovy) 0.25 mg/0.5 mL Pen Other Obesity (BMI 30-39.9) Obesity: Body mass index is 33.11 kg/m .. Recommended therapeutic lifestyle changes including healthy diet starting with a 500 calorie deficit/day and 30-60 min of exercise at least 3 times/week to help with weight loss. Patient can advance exercise regiment as tolerated. Types of exercise include strength training (cross fit, QUENTIN, weight lifting) or aerobic exercise(/brisk walk/jogging/running)or a combination of both. Second month of adipex prescribed Will add saxenda/wegovy Relevant Medications phentermine (ADIPEX-P) 37.5 mg tablet semaglutide, weight loss, (Wegovy) 0.25 mg/0.5 mL Pen Other Visit Diagnoses Infertility, female Relevant Medications semaglutide, weight loss, (Wegovy) 0.25 mg/0.5 mL Pen If any referrals were placed at the time of your visit please allow 2 weeks for processing. If you haven't heard from anyone within 2 weeks please contact my office so we can look into the status of your referral. If you were given any labs today please ensure they are completed according to the directions given. Most normal results will be available through [employer] however if abnormal, you will be notified. Please allow 48-72 hours for review, and let you know what steps, if any, are needed next. If you haven't heard from us after that please call to inquire. If labs were ordered to be done PRIOR to your next visit we will discuss the results at the time ofyour office visit. If any procedures or imaging studies were ordered that must be prior authorized please give us 2 weeks to get them approved. Once approved someone should call you to schedule them or give you a date and time that they were scheduled for. If you haven't heard anything within 2 weeks of the office visit please call the office so we can look into their status. Customer Service/Billing Questions: [phone] [employer] Assistance: [phone] or [phone] Financial Assistance: [phone] or [phone] documented in this [id number] Evaluation + Plan note* Assessment & Plan Note - Rosalina Muñiz MD - 12/12/2022 6:46 PM ESTAssociated Problem(s): Obesity (BMI 30-39.9) Obesity: Body mass index is 33.11 kg/m .. Recommended therapeutic lifestyle changes including healthy diet starting with a 500 calorie deficit/day and 30-60 min of exercise at least 3 times/week to help with weight loss. Patient can advance exercise regiment as tolerated. Types of exercise include strength training (cross fit, QUENTIN, weight lifting) or aerobic exercise(/brisk walk/jogging/running)or a combination of both. Second month of adipex prescribed Will add saxenda/aylinvy [id number] Miscellaneous Notes* Assessment & Plan Note - Rosalina Muñiz MD - 12/12/2022 6:46 PM ESTAssociated Problem(s): Obesity (BMI 30-39.9) Obesity: Body mass index is 33.11 kg/m .. Recommended therapeutic lifestyle changes including healthy diet starting with a 500 calorie deficit/day and 30-60 min of exercise at least 3 times/week to help with weight loss. Patient can advance exercise regiment as tolerated. Types of exercise include strength training (cross fit, QUENTIN, weight lifting) or aerobic exercise(/brisk walk/jogging/running)or a combination of both. Second month of adipex prescribed Will add joseenda/aylinvy documented in this [id number] History of Present illness Narrative* Rosalina Muñiz MD - 12/12/2022 6:42 PM EST Assessment Assessment/Plan: Problem List Obesity (BMI 30-39.9) Obesity: Body mass index is 33.11 kg/m .. Recommended therapeutic lifestyle changes including healthy diet starting with a 500 calorie deficit/day and 30-60 min of exercise at least 3 times/week to help with weight loss. Patient can advance exercise regiment as tolerated. Types of exercise include strength training (cross fit, QUENTIN, weight lifting) or aerobic exercise(/brisk walk/jogging/running)or a combination of both. Second month of adipex prescribed Will add saxenda/wegovy Relevant Medications phentermine (ADIPEX-P) 37.5 mg tablet semaglutide, weight loss, (Wegovy) 0.25 mg/0.5 mL Pen PCOS (polycystic ovarian syndrome) - Primary Relevant Medications semaglutide, weight loss, (Wegovy) 0.25 mg/0.5 mL Pen Return in about 4 weeks (around 01/09/2023) for Follow up Chronic Conditions. For any new medications prescribed today, patient was educated about indications for the medication, how to take the medication and potential side effects of the medications. Rosalina Muñiz MD [facility] [address] [facility] [address] [facility] [address] Dept: [phone] Subjective Chief Complaint Patient presents with Follow-up Medication f/u Gap Closure (Health Maintenance) There are no preventive care reminders to display for this patient. HPI Federica Figueroa is a 32 y.o. female with a PMHx of infertility, obesity, presenting for weightloss Initial weight: 181lbs Current weight: 181lbs Completed 1 month of adipex. Feels discouraged because she has been decreasing calories and startedworking out. She is putting off getting because she wants to lose weight and does not wantto complete the three months and this be futile. Has been more stressed at work in the last few weeks as well. Emotional support was provided. Has hx of pcos and infertility- was on metformin but this did not help her pcos Advised pt we can start wegovy/saxenda and see if this is covered by her insurance, add it on with adipex although this is not fda approved. Recommended therapeutic lifestyle changes including healthy diet starting with a 500 calorie deficit/day and 30-60 min of exercise at least 3 times/week to help with weight loss. Patient can advance exercise regiment as tolerated. Types of exercise include strength training (cross fit, QUENTIN, weightlifting) or aerobic exercise(/brisk walk/jogging/running) or a combination of both. Discussed weight loss medications available including tirzepatide, semaglutide, phentermine, phentermine-topiramate, naltrexone-bupropion and weight loss surgery. We discussed insurance coverage, outof pocket costs, side effects of medications and contraindications.The patient has no personal or family hx of thyroid ca or MEN2. No personal hx of pancreatitis, uncontrolled HTN, hyperthyroidism ofhistory of substance abuse/current opioid or excessive ETOH use, no hx of seizures. -had some anxiety/restless with adipex but feels like it is getting better. All pertinent positives and negatives are documented in ROS Patient's medications, allergies, past medical history, surgical history history, family history, social history were reviewed. Spent more than 35 minutes with patient, coordinating patient care, including reviewing charts and counseling patient. Past Medical History: Diagnosis Date Asthma Migraine Sinusitis 11/05/2021 History reviewed. No pertinent surgical history. Family History Problem Relation Age of Onset Hypertension Mother Social History Tobacco Use Smoking status: Never Smokeless tobacco: Never Vaping Use Vaping Use: Never used Substance Use Topics Alcohol use: Never Drug use: Never Allergies Allergen Reactions Penicillins Rash Patient's Medications New Prescriptions PHENTERMINE (ADIPEX-P) 37.5 MG TABLET Take 1 (one) tablet (37.5 mg total) by mouth every morning . SEMAGLUTIDE, WEIGHT LOSS, (WEGOVY) 0.25 MG/0.5 ML PEN Inject 0.5 mL (0.25 mg total) under the skin every 7 days . Previous Medications ALBUTEROL (VENTOLIN HFA) 90 MCG/ACTUATION INHALER Inhale 2 (two) puffs every 4 (four) hours as needed for wheezing or shortness of breath . APRI 0.15-0.03 MG PER TABLET CHOLECALCIFEROL, VITAMIN D3, 50 MCG (2,000 UNIT) TAB Take 1 (one) tablet (2,000 Units total) by mouth daily Start after completion of vit D 50,000 IU . ERGOCALCIFEROL (ERGOCALCIFEROL) 1,250 MCG (50,000 UNIT) CAPSULE Take 1 (one) capsule (50,000 Units total) by mouth once a week for 24 doses . FERROUS SULFATE 325 (65 FE) MG TABLET Take 1 (one) tablet (325 mg total) by mouth daily with breakfast . METFORMIN (GLUCOPHAGE-XR) 750 MG 24 HR TABLET Take 1 (one) tablet (750 mg total) by mouth 2 (two) times a day . PHENTERMINE (ADIPEX-P) 37.5 MG TABLET Take 1 (one) tablet (37.5 mg total) by mouth every morning . VITAMIN WITH CA-IRON-FA 27-1 MG TAB Take 1 (one) tablet by mouth daily . Modified Medications No medications on file Discontinued Medications FLUTICASONE PROPIONATE (FLONASE) 50 MCG/ACTUATION NASAL SPRAY Instill 2 (two) sprays into each nostril daily . FLUTICASONE PROPIONATE (FLONASE) 50 MCG/ACTUATION NASAL SPRAY Instill 2 (two) sprays into each nostril daily . Objective Vitals: 12/12/22 1840 BP: 130/85 BP Location: Left arm Patient Position: Sitting BP Cuff Size: X-large Adult Pulse: 96 Resp: 16 Temp: 98.2 F (36.8 C) TempSrc: Infrared SpO2: 98% Weight: 82.1 kg (181 lb) Height: 5' 2 Estimated body mass index is 33.11 kg/m as calculated from the following: Height as of this encounter: 5' 2. Weight as of this encounter: 82.1 kg (181 lb). Physical Exam Constitutional: Appearance: Normal appearance. She is obese. HENT: Head: Normocephalic and atraumatic. Mouth/Throat: Mouth: Mucous membranes are moist. Pharynx: Oropharynx is clear. Eyes: Extraocular Movements: Extraocular movements intact. Pupils: Pupils are equal, round, and reactive to light. Cardiovascular: Rate and Rhythm: Normal rate and regular rhythm. Pulmonary: Effort: Pulmonary effort is normal. Breath sounds: Normal breath sounds. Skin: General: Skin is warm. Neurological: General: No focal deficit present. Mental Status: She is alert and oriented to person, place, and time. Mental status is at baseline. Psychiatric: Mood and Affect: Mood normal. Behavior: Behavior normal. Thought Content: Thought content normal. Judgment: Judgment normal. PHQ9: TRINO-7 Tobacco Counseling: Counseling given: Not Answered documented in this [id number] Evaluation + Plan note* Assessment & Plan Note - Rosalina Muñiz MD - 11/14/2022 7:37 AM ESTAssociated Problem(s): PCOS (polycystic ovarian syndrome) On metformin We discussed weight loss can help w/ fertility [id number] Miscellaneous Notes* Assessment & Plan Note - Rosalina Muñiz MD - 11/14/2022 7:37 AM ESTAssociated Problem(s): PCOS (polycystic ovarian syndrome) On metformin We discussed weight loss can help w/ fertility * Assessment & Plan Note - Rosalina Muñiz MD - 11/14/2022 7:36 AM ESTAssociated Problem(s): Obesity (BMI 30-39.9) Obesity: Body mass index is 33.11 kg/m .. Recommended therapeutic lifestyle changes including healthy diet starting with a 500 calorie deficit/day and 30-60 min of exercise at least 3 times/week to help with weight loss. Patient can advance exercise regiment as tolerated. Types of exercise include strength training (cross fit, QUENTIN, weight lifting) or aerobic exercise(/brisk walk/jogging/running)or a combination of both. Will obtain labs * Assessment & Plan Note - Rosalina Muñiz MD - 11/14/2022 7:36 AM ESTAssociated Problem(s): Sinusitis Plan: Doxycyline X 5 dats Use mucinex for congestion Iitf-kvw-pkxpbth Cepacol or Ricola lozenges for sore throat Drink warm liquids like tea with honey, soups and take warm steam showers to help soothe your symptoms Hydration, rest promoted. documented in this [id number] Evaluation + Plan note* Assessment & Plan Note - Rosalina Muñiz MD - 11/14/2022 7:36 AM ESTAssociated Problem(s): Obesity (BMI 30-39.9) Obesity: Body mass index is 33.11 kg/m .. Recommended therapeutic lifestyle changes including healthy diet starting with a 500 calorie deficit/day and 30-60 min of exercise at least 3 times/week to help with weight loss. Patient can advance exercise regiment as tolerated. Types of exercise include strength training (cross fit, QUENTIN, weight lifting) or aerobic exercise(/brisk walk/jogging/running)or a combination of both. Will obtain labs [id number] Evaluation + Plan note* Assessment & Plan Note - Rosalina Muñiz MD - 11/14/2022 7:36 AM ESTAssociated Problem(s): Sinusitis Plan: Doxycyline X 5 dats Use mucinex for congestion Otru-iur-wtirjaf Cepacol or Ricola lozenges for sore throat Drink warm liquids like tea with honey, soups and take warm steam showers to help soothe your symptoms Hydration, rest promoted. [id number] History of Present illness Narrative* Rsoalina Muñiz MD - 11/08/2022 6:15 PM EST Assessment Assessment/Plan: Problem List Obesity (BMI 30-39.9) - Primary Obesity: Body mass index is 33.11 kg/m .. Recommended therapeutic lifestyle changes including healthy diet starting with a 500 calorie deficit/day and 30-60 min of exercise at least 3 times/week to help with weight loss. Patient can advance exercise regiment as tolerated. Types of exercise include strength training (cross fit, QUENTIN, weight lifting) or aerobic exercise(/brisk walk/jogging/running)or a combination of both. Will obtain labs Relevant Orders CBC and Differential (Completed) Comprehensive Metabolic Panel (Completed) Vitamin D, Total, 25-OH (Completed) TSH with Reflex Free T4 (Completed) Hemoglobin A1c (Completed) Ambulatory referral to [facility] Services Sinusitis Plan: Doxycyline X 5 dats Use mucinex for congestion Bnby-qqw-guvuwkw Cepacol or Ricola lozenges for sore throat Drink warm liquids like tea with honey, soups and take warm steam showers to help soothe your symptoms Hydration, rest promoted. PCOS (polycystic ovarian syndrome) On metformin We discussed weight loss can help w/ fertility Return for wait to [facility] . For any new medications prescribed today, patient was educated about indications for the medication, how to take the medication and potential side effects of the medications. Rosalina Muñiz MD [facility] [address] [facility] [address] [facility] [id number] Dept: [phone] Subjective Chief Complaint Patient presents with Follow-up HPI Federicatanisha Figueroa is a 32 y.o. female with a PMHx of infertility, obesity, presenting for persistent sinus congestion and postnasal drip Sinusitis: This is a new complaint. Pt was seen on 10/18/22 for the same issue. The problem has is unchanged. Associated symptoms include: Postnasal drip, sore throat, sinus pressure and headache.Pertinent negatives include: , ear drainage, difficulty hearing, fever, chills, cough, wheezing. She has tried Sudafed, flonase, mucinex which has not helped. Has hx of pcos and infertility- has been on metformin.-has been trying for another child through infertility clinic and was supposed to follow up w/ new maternal medicine physician however she has not heard back yet. She will hold off on pursuing at this time Obesity: Body mass index is 33.11 kg/m .. Recommended therapeutic lifestyle changes including healthy diet starting with a 500 calorie deficit/day and 30-60 min of exercise at least 3 times/week to help with weight loss. Patient can advance exercise regiment as tolerated. Types of exercise include strength training (cross fit, QUENTIN, weight lifting) or aerobic exercise(/brisk walk/jogging/running)or a combination of both. Discussed weight loss medications available including tirzepatide, semaglutide, phentermine, phentermine-topiramate, naltrexone-bupropion and weight loss surgery. We discussed insurance coverage, outof pocket costs, side effects of medications and contraindications.The patient has no personal or family hx of thyroid ca or MEN2. No personal hx of pancreatitis, uncontrolled HTN, hyperthyroidism ofhistory of substance abuse/current opioid or excessive ETOH use, no hx of seizures.Patient showed interest in adipex Adipex (phentermine)- oral tablets that you take daily. We would prescribe it for 3 months. It is acontrolled substance- we would like to complete a controlled substance agreement and a urinary drugscreen prior to prescribing. We can prescribe this as long as the patient does not have uncontrolled hypertension, hyperthyroidism or history of substance abuse. If insurance does not cover it, usually out of pocket cost is approximately 30-40 dollars a month. It is a controlled substance- we wouldlike to complete a controlled substance agreement and a urinary drug screen prior to prescribing. Follow up in person every 4 weeks is required Qysmia (Phentermine-Topamax)- this is a technician terminal and repeater oral medication (usually we prescribe it for at least 6-12 months). If insurance does not cover it, we can send this prescription through a compound pharmacy and out of pocket costs are usually 50-90 dollars a month for this. It is a controlled substance- we would like to complete a controlled substance agreement and a urinary drug screen prior toprescribing. We can prescribe this as long as the patient does not have uncontrolled hypertension, hyperthyroidism or history of substance abuse. Follow up in person every 3 months is required Contrave (naltrexone-buproprion)- this is a technician terminal and repeater oral medication (usually we prescribe it for at least 6-12 months), as long as the patient does not have active opioid use or any history of seizures. If insurance does not cover it, we can send this prescription through a compound pharmacy and out of pocket costs are usually approx. 50-90 dollars a month for this. Semaglutide- senior customer service representative medication for weight loss. As long as the patient has no personal or familyhx of thyroid cancer, MEN2 syndrome or personal hx of pancreatitis. It's an injectable that you take once weekly and every 4 weeks, we increase the dose. It is a technician terminal and repeater medication (usually 12 months if not more). If insurance does not cover it- You can try to apply for patient savings card at [employer]. If you are not eligible, out of pocket costs through a compound pharmacy is approx 230-250$ per month. Tirzepatide- senior customer service representative medication for weight loss. As long as the patient has no personal or familyhx of thyroid cancer, MEN2 syndrome or personal hx of pancreatitis. It's an injectable that you take once weekly and every 4 weeks, we increase the dose. It is a snf medication (usually 12 months if not more). This is NOT FDA approved for weight loss. If insurance does not cover it- You can try to apply for patient savings card at https://www.[employer]. All pertinent positives and negatives are documented in ROS Patient's medications, allergies, past medical history, surgical history history, family history, social history were reviewed. Spent more than 40 minutes with patient, coordinating patient care, including reviewing charts and counseling patient. Past Medical History: Diagnosis Date Asthma Migraine Sinusitis 11/05/2021 History reviewed. No pertinent surgical history. Family History Problem Relation Age of Onset Hypertension Mother Social History Tobacco Use Smoking status: Never Smokeless tobacco: Never Vaping Use Vaping Use: Never used Substance Use Topics Alcohol use: Never Drug use: Never Allergies Allergen Reactions Penicillins Rash Patient's Medications New Prescriptions CHOLECALCIFEROL, VITAMIN D3, 50 MCG (2,000 UNIT) TAB Take 1 (one) tablet (2,000 Units total) by mouth daily Start after completion of vit D 50,000 IU . ERGOCALCIFEROL (ERGOCALCIFEROL) 1,250 MCG (50,000 UNIT) CAPSULE Take 1 (one) capsule (50,000 Units total) by mouth once a week for 24 doses . FERROUS SULFATE 325 (65 FE) MG TABLET Take 1 (one) tablet (325 mg total) by mouth daily with breakfast . Previous Medications ALBUTEROL (VENTOLIN HFA) 90 MCG/ACTUATION INHALER Inhale 2 (two) puffs every 4 (four) hours as needed for wheezing or shortness of breath . APRI 0.15-0.03 MG PER TABLET FLUTICASONE PROPIONATE (FLONASE) 50 MCG/ACTUATION NASAL SPRAY Instill 2 (two) sprays into each nostril daily . FLUTICASONE PROPIONATE (FLONASE) 50 MCG/ACTUATION NASAL SPRAY Instill 2 (two) sprays into each nostril daily . METFORMIN (GLUCOPHAGE-XR) 750 MG 24 HR TABLET Take 1 (one) tablet (750 mg total) by mouth 2 (two) times a day . VITAMIN WITH CA-IRON-FA 27-1 MG TAB Take 1 (one) tablet by mouth daily . Modified Medications No medications on file Discontinued Medications No medications on file Objective Vitals: 11/08/22 1752 BP: 137/86 BP Location: Left arm Patient Position: Sitting BP Cuff Size: X-large Adult Pulse: 93 Resp: 16 Temp: 98.4 F (36.9 C) TempSrc: Temporal SpO2: 95% Weight: 82.1 kg (181 lb) Height: 5' 2 Estimated body mass index is 33.11 kg/m as calculated from the following: Height as of this encounter: 5' 2. Weight as of this encounter: 82.1 kg (181 lb). Physical Exam Constitutional: Appearance: Normal appearance. She is obese. HENT: Head: Normocephalic and atraumatic. Nose: Congestion present. No rhinorrhea. Right Turbinates: Not enlarged. Left Turbinates: Not enlarged. Right Sinus: No maxillary sinus tenderness or frontal sinus tenderness. Left Sinus: No maxillary sinus tenderness or frontal sinus tenderness. Mouth/Throat: Mouth: Mucous membranes are moist. Pharynx: No oropharyngeal exudate or posterior oropharyngeal erythema. Eyes: Extraocular Movements: Extraocular movements intact. Pupils: Pupils are equal, round, and reactive to light. Cardiovascular: Rate and Rhythm: Normal rate and regular rhythm. Pulmonary: Effort: Pulmonary effort is normal. Breath sounds: Normal breath sounds. Skin: General: Skin is warm. Neurological: General: No focal deficit present. Mental Status: She is alert and oriented to person, place, and time. Psychiatric: Mood and Affect: Mood normal. Behavior: Behavior normal. Thought Content: Thought content normal. Judgment: Judgment normal. PHQ9: TRINO-7 Tobacco Counseling: Counseling given: Not Answered documented in this [id number] Instructions* Patient Instructions* Federica Rossi CNP - 01/07/2022 11:28 AM EST Problem List Items Addressed This Visit Respiratory Bronchitis Relevant Medications azithromycin (Z-EMORY) 5 day dose pack predniSONE (DELTASONE) 20 MG tablet If any referrals were placed at the time of your visit please allow 2 weeks for processing. If you haven't heard from anyone within 2 weeks please contact my office so we can look into the status of your referral. If you were given any labs today please ensure they are completed according to the directions given. Once labs are completed please allow 1-2 weeks for us to receive the results, review them, and letyou know what steps, if any, are needed next. If you haven't heard from us after that please call to inquire. If labs were ordered to be done PRIOR to your next visit we will discuss the results at the time ofyour office visit. If any procedures or imaging studies were ordered that must be prior authorized please give us 2 weeks to get them approved. Once approved someone should call you to schedule them or give you a date and time that they were scheduled for. If you haven't heard anything within 2 weeks of the office visit please call the office so we can look into their status. Customer Service/Billing Questions: [phone] [facility] Assistance: [phone] or [phone] Financial Assistance: [phone] or [phone] documented in this [id number] History of Present illness Narrative* Federica Rossi CNP - 01/06/2022 3:12 PM EST Images from the original note were not included. Video Visit [facility] [address] [facility] [id number] Via Real-time Synchronous Audiovisual [facility] 01/06/2022 Federica Rossi CNP Provider Location: [address] [place] [address] Patient Location Fixed Income Trading Vice President: None Patient Location: Patient's Home Patient: Federica Figueroa Date of : 1990 (31 y.o. female) PCP: Rosalina Muñiz MD Video Visit Consent Statement: I discussed risks, benefits and alternatives of a real-time synchronous audiovisual consultation with the patient (and any accompanying persons) including the risks that the patient s personal health details and medical records will be discussed over real-time, synchronous, interactive video/audio/telecommunication technology, the visit will not be recorded without the express consent of both the provider and the patient, and that there are some limitations compared to axax-ou-lazp evaluations. We elected to proceed. Subjective Patient ID: Federica Figueroa is a 31 y.o. female. URI This is a new problem. Episode onset: 7 days. The problem has been unchanged. There has been no fever. Associated symptoms include congestion, coughing, rhinorrhea and wheezing. Pertinent negatives include no abdominal pain, chest pain, diarrhea, dysuria, ear pain, headaches, joint pain, joint swelling, nausea, neck pain, plugged ear sensation, rash, sinus pain, sneezing, sore throat, swollen glands or vomiting. Treatments tried: Albuterol, Mucinex. The treatment provided mild relief. The following were reviewed and updated as appropriate for today's visit: allergies, current medications, past family history, past medical history, past social history, past surgical history and problem list. Patient's Medications New Prescriptions AZITHROMYCIN (Z-EMORY) 5 DAY DOSE PACK Follow directions on package. . PREDNISONE (DELTASONE) 20 MG TABLET Take 2 (two) tablets (40 mg total) by mouth daily for 5 days . Previous Medications ALBUTEROL (VENTOLIN HFA) 90 MCG/ACTUATION INHALER Inhale 2 (two) puffs every 4 (four) hours as needed for wheezing or shortness of breath . APRI 0.15-0.03 MG PER TABLET BENZONATATE (TESSALON) 100 MG CAPSULE Take 1 (one) capsule to 2 (two) capsules (100-200 mg total) by mouth 3 (three) times a day as needed for cough . FLU VAC QV 2020,18YR UP,RC,PF, (FLUBLOK QUAD) SYRINGE Sign this order in conjunction with the immunization order to satisfy [place] Board of Pharmacy Positive ID requirements for immunization orders. . SUMATRIPTAN (IMITREX) 50 MG TABLET Take 1 (one) tablet (50 mg total) by mouth every 2 (two) hours as needed for migraine Max of 200 mg in 24hrs . Modified Medications No medications on file Discontinued Medications No medications on file Review of Systems Review of Systems Constitutional: Positive for activity change and fatigue. Negative for appetite change, chills, diaphoresis and fever. HENT: Positive for congestion and rhinorrhea. Negative for ear pain, sinus pain, sneezing and sore throat. Respiratory: Positive for cough and wheezing. Cardiovascular: Negative for chest pain. Gastrointestinal: Negative for abdominal pain, diarrhea, nausea and vomiting. Genitourinary: Negative for dysuria. Musculoskeletal: Negative for joint pain and neck pain. Skin: Negative for rash. Neurological: Negative for dizziness, weakness, light-headedness and headaches. There were no vitals filed for this visit. There is no height or weight on file to calculate BMI. Physical Exam Physical Exam Vitals reviewed: Limited exam due to video visit. Constitutional: Appearance: Normal appearance. HENT: Head: Normocephalic and atraumatic. Pulmonary: Effort: Pulmonary effort is normal. Musculoskeletal: General: Normal range of motion. Cervical back: Normal range of motion. Neurological: Mental Status: She is alert and oriented to person, place, and time. Psychiatric: Mood and Affect: Mood normal. Thought Content: Thought content normal. OARRS/NARxCHECK Report Received and Assessed: No data found Date controlled substance agreement signed: No data found Date of last drug screen: No data found Functional Assessment: No data found Assessment/Plan Problem List Items Addressed This Visit Respiratory Bronchitis Relevant Medications azithromycin (Z-EMORY) 5 day dose pack predniSONE (DELTASONE) 20 MG tablet For any new medications prescribed today, patient was educated about indications for the medication, how to take the medication and potential side effects of the medications. Federica Rossi CNP documented in this [id number] NoteAccession #: [id number] Date of Procedure: 12/14/2021 Pathologist: [facility], Cytology Date Reported: 12/22/2021 Date Received: 12/15/2021 Submitting Physician: ROSI MENDOZA DO Attending Physician: ROSI MENDOZA DO FINAL CYTOLOGICAL INTERPRETATION A. THINPREP PAP CERVICAL: Specimen adequacy: SATISFACTORY FOR EVALUATION. Quality Indicator: Endocervical/transformation zone component is present. General Categorization: NEGATIVE FOR INTRAEPITHELIAL LESION OR MALIGNANCY. Ancillary Testing: Specimen does not meet the requisition-stated criteria for HPV testing. See Pap test interpretation above. QC review performed at [facility], [address], [place] [address] This specimen has been analyzed by the [employer] Services[employer] Imaging System ([employer] an automated imaging and review system, which assists the laboratory in evaluating cells on ThinPrep Pap tests. Following automated imaging, selected fleming from every slide were reviewed by a bowling alley mechanic and/or pathologist. Electronically Signed Out By [facility], Cytology//MZ/LSM By the signature on this report, the individual or group listed as making the Final Interpretation/Diagnosis certifies that they have reviewed this case. Educational Note: Cervical cytology is a screening procedure primarily for squamous cancers and precursors and has associated false-negative and false-positive results as evidenced by published data. Your patient?s test should be interpreted in this context, together with patient?s history and clinical findings. Regular sampling and follow-up of unexplained clinical signs and symptoms are recommended to minimize false negative results. Clinical History Date of Last Menstrual Period: 12/10/2021 Other Clinical Conditions: HPV Reflex for ASC-US only - Include HPV Genotype Annual Clinical Diagnosis History: Encounter for screening for cervical cancer - (Z12.4) Source of Specimen A: THINPREP PAP CERVICAL [facility] Department of Pathology [address] [place], [place] [address]Comment on above:Performed By: #### C #### [facility] Cytology [address] [place] [address] [phone] Instructions* Patient Instructions* Ganesh Boggs MD - 12/10/2021 1:30 PM EST Problem List Items Addressed This Visit Other Herpes zoster without complication - Primary Highly suggestive of shingles, especially post viral flare. I discussed with patient antiviral course. Isolation and covering if started crusting or oozing blisters showed up. For pain control, suggested heat/ice versus lidocaine topical cream. If still persistent we will prescribe capsaicin cream to help with neuropathic pain. Relevant Medications valACYclovir (VALTREX) 1000 MG tablet If any referrals were placed at the time of your visit please allow 2 weeks for processing. If you haven't heard from anyone within 2 weeks please contact my office so we can look into the status of your referral. If you were given any labs today please ensure they are completed according to the directions given. Once labs are completed please allow 1-2 weeks for us to receive the results, review them, and letyou know what steps, if any, are needed next. If you haven't heard from us after that please call to inquire. If labs were ordered to be done PRIOR to your next visit we will discuss the results at the time ofyour office visit. If any procedures or imaging studies were ordered that must be prior authorized please give us 2 weeks to get them approved. Once approved someone should call you to schedule them or give you a date and time that they were scheduled for. If you haven't heard anything within 2 weeks of the office visit please call the office so we can look into their status. Customer Service/Billing Questions: [phone] MyChart Assistance: [phone] or [phone] Financial Assistance: [phone] or [phone] As of November 04, 2019 my schedule will be changing: Monday 7 am to 5 pm Monday 7 am to 5 pm Monday closed 7 am to 5 pm Monday 7 am to 1 pm documented in this [id number] Miscellaneous Notes* Assessment & Plan Note - Ganesh Boggs MD - 12/10/2021 1:29 PM EST Associated Problem(s): Herpes zoster without complication Highly suggestive of shingles, especially post viral flare. I discussed with patient antiviral course. Isolation and covering if started crusting or oozing blisters showed up. For pain control, suggested heat/ice versus lidocaine topical cream. If still persistent we will prescribe capsaicin cream to help with neuropathic pain. documented in this [id number] History of Present illness Narrative* Ganesh Faraz Boggs MD - 12/10/2021 11:22 AM EST Chief Complaint Patient presents with Rash Started Monday HPI: Federica Figueroa is a very pleasant 31-year-old female presenting today for concerns of skin rash on the left side of her back. 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 Patient has had chickenpox growing up. Recently got Covid in October. Denies any vesicles or oozing at this time. Past Medical History: Diagnosis Date Asthma Migraine No past surgical history on file. Family History Problem Relation Age of Onset Hypertension Mother Social History Tobacco Use Smoking status: Never Smoker Smokeless tobacco: Never Used Vaping Use Vaping Use: Never used Substance Use Topics Alcohol use: Never Drug use: Never Review of Systems Vitals: 12/10/21 1059 12/10/21 1103 BP: (!) 134/94 130/87 BP Location: Right arm Right arm Patient Position: Sitting Sitting BP Cuff Size: X-large Adult X-large Adult Pulse: 89 80 Resp: 16 Temp: 97.6 F (36.4 C) TempSrc: Temporal SpO2: 98% Weight: 83.9 kg (185 lb) Height: 5' 2 Estimated body mass index is 33.84 kg/m as calculated from the following: Height as of this encounter: 5' 2. Weight as of this encounter: 83.9 kg (185 lb). Physical Exam Constitutional: General: She is not in acute distress. Appearance: She is not ill-appearing. HENT: Head: Normocephalic and atraumatic. Eyes: Extraocular Movements: Extraocular movements intact. Conjunctiva/sclera: Conjunctivae normal. Pupils: Pupils are equal, round, and reactive to light. Musculoskeletal: General: No tenderness. Normal range of motion. Cervical back: Normal range of motion and neck supple. No muscular tenderness. Right lower leg: No edema. Left lower leg: No edema. Skin: General: Skin is warm. Findings: Rash (Papular rash, small 2 mm in size in a cluster on the left mid back, erythematous innature and tender) present. No erythema. Neurological: General: No focal deficit present. Mental Status: She is alert and oriented to person, place, and time. Sensory: No sensory deficit. Motor: No weakness. Gait: Gait normal. Psychiatric: Mood and Affect: Mood normal. Behavior: Behavior normal. Thought Content: Thought content normal. Judgment: Judgment normal. OARRS/NARxCHECK Report Received and Assessed: No data found Date controlled substance agreement signed: No data found Date of last drug screen: No data found Functional Assessment: No data found PHQ9: TRINO-7 Tobacco Counseling: Counseling given: Not Answered Patient's Medications New Prescriptions VALACYCLOVIR (VALTREX) 1000 MG TABLET Take 1 (one) tablet (1,000 mg total) by mouth 3 (three) timesa day for 7 days . Previous Medications ALBUTEROL (VENTOLIN HFA) 90 MCG/ACTUATION INHALER Inhale 2 (two) puffs every 4 (four) hours as needed for wheezing or shortness of breath . APRI 0.15-0.03 MG PER TABLET BENZONATATE (TESSALON) 100 MG CAPSULE Take 1 (one) capsule to 2 (two) capsules (100-200 mg total) by mouth 3 (three) times a day as needed for cough . FLU VAC QV 2020,18YR UP,RC,PF, (FLUBLOK QUAD) SYRINGE Sign this order in conjunction with the immunization order to satisfy [place] Board of Pharmacy Positive ID requirements for immunization orders. . SUMATRIPTAN (IMITREX) 50 MG TABLET Take 1 (one) tablet (50 mg total) by mouth every 2 (two) hours as needed for migraine Max of 200 mg in 24hrs . Modified Medications No medications on file Discontinued Medications No medications on file Health Maintenance Due Topic Date Due Pap Smear Never done Wellness Visit Never done HIV Screening Never done Hepatitis C Screening Never done Assessment & Plan Problem List Items Addressed This Visit Other Herpes zoster without complication - Primary Highly suggestive of shingles, especially post viral flare. I discussed with patient antiviral course. Isolation and covering if started crusting or oozing blisters showed up. For pain control, suggested heat/ice versus lidocaine topical cream. If still persistent we will prescribe capsaicin cream to help with neuropathic pain. Relevant Medications valACYclovir (VALTREX) 1000 MG tablet No follow-ups on file. GANESH BOGGS MD [facility] [address] [facility] [facility] [address] [facility] [id number] Dept: [phone] documented in this [id number] Instructions* Patient Instructions* Federica Rossi CNP - 11/05/2021 11:06 AM EST Problem List Items Addressed This Visit Other Flu-like symptoms - Primary Quarantine x10 days from onset of symptoms and fever free without medication for 24+ hours. Make sure you are getting lots of rest, water, and good nutrition. Family and close contacts should self quarantine x 14 days. Recommend taking Multivitamin, Vitamin D 4000 units daily, and Aspirin 81 mg daily (if not contraindicated). Go to the ER if it is difficult to breath, you cough up blood, chest pain (and not just tenderness because you coughed and hurt your chest but real serious heavy chest pain), confusion, passing out or nearly passing out, or bluish lips. Relevant Orders COVID-19/Influenza A,B Molecular Pending external COVID-19 lab result If any referrals were placed at the time of your visit please allow 2 weeks for processing. If you haven't heard from anyone within 2 weeks please contact my office so we can look into the status of your referral. If you were given any labs today please ensure they are completed according to the directions given. Once labs are completed please allow 1-2 weeks for us to receive the results, review them, and letyou know what steps, if any, are needed next. If you haven't heard from us after that please call to inquire. If labs were ordered to be done PRIOR to your next visit we will discuss the results at the time ofyour office visit. If any procedures or imaging studies were ordered that must be prior authorized please give us 2 weeks to get them approved. Once approved someone should call you to schedule them or give you a date and time that they were scheduled for. If you haven't heard anything within 2 weeks of the office visit please call the office so we can look into their status. Customer Service/Billing Questions: [phone] [facility] Assistance: [phone] or [phone] Financial Assistance: [phone] or [phone] documented in this [id number] Miscellaneous Notes* Assessment & Plan Note - Federica Rossi CNP - 11/05/2021 11:02 AM EST Associated Problem(s): Flu-like symptoms Quarantine x10 days from onset of symptoms and fever free without medication for 24+ hours. Make sure you are getting lots of rest, water, and good nutrition. Family and close contacts should self quarantine x 14 days. Recommend taking Multivitamin, Vitamin D 4000 units daily, and Aspirin 81 mg daily (if not contraindicated). Go to the ER if it is difficult to breath, you cough up blood, chest pain (and not just tenderness because you coughed and hurt your chest but real serious heavy chest pain), confusion, passing out or nearly passing out, or bluish lips. documented in this [id number] History of Present illness Narrative* Federica Rossi CNP - 11/05/2021 11:00 AM EST Telephone Visit Via Phone Call [facility] [address] [place] [id number] Telephone Visit [facility] 11/05/2021 Federica Rossi CNP Provider Location: [address] [place] [address] Patient Location [employer] Vice President: None Patient Location: Patient's Home Patient: Federica Figueroa Date of : 1990 (31 y.o. female) PCP: Rosalina Muñiz MD I discussed risks, benefits and alternatives of a telephone visit telemedicine consultation with the patient (and any accompanying persons) including the risks that the patient's personal health details and medical records will be discussed over real-time, synchronous, interactive audio technology,the visit will not be recorded without the express consent of both the provider and the patient, and that there are inherent diagnostic limitations compared to [id number] evaluations. We elected toproceed with the telephone visit telemedicine consultation. Patient took rapid test for Covid on Monday and it was negative. Influenza This is a new problem. Episode onset: 4 days. The problem occurs constantly. The problem has been gradually worsening. Associated symptoms include anorexia, arthralgias, chills, congestion, coughing,diaphoresis, fatigue, a fever, headaches, myalgias, a sore throat and weakness. Pertinent negativesinclude no abdominal pain, change in bowel habit, chest pain, joint swelling, nausea, neck pain, numbness, rash, swollen glands, urinary symptoms, vertigo, visual change or vomiting. Associated symptoms comments: Left earache. Exacerbated by: all activity. Treatments tried: Sudafed. The treatment provided mild relief. The following portions of the patient's history were reviewed and updated as appropriate: allergies, current medications, past family history, past medical history, past social history, past surgicalhistory, and problem list. Review of Systems Constitutional: Positive for chills, diaphoresis, fatigue and fever. HENT: Positive for congestion and sore throat. Respiratory: Positive for cough. Cardiovascular: Negative for chest pain. Gastrointestinal: Positive for anorexia. Negative for abdominal pain, change in bowel habit, nauseaand vomiting. Musculoskeletal: Positive for arthralgias and myalgias. Negative for joint swelling and neck pain. Skin: Negative for rash. Neurological: Positive for weakness and headaches. Negative for vertigo and numbness. Patient's Medications New Prescriptions No medications on file Previous Medications APRI 0.15-0.03 MG PER TABLET FLU VAC QV 2020,18YR UP,RC,PF, (FLUBLOK QUAD) SYRINGE Sign this order in conjunction with the immunization order to satisfy [place] Board [employer] Pharmacy Positive ID requirements for immunization orders. . SUMATRIPTAN (IMITREX) 50 MG TABLET Take 1 (one) tablet (50 mg total) by mouth every 2 (two) hours as needed for migraine Max of 200 mg in 24hrs . Modified Medications No medications on file Discontinued Medications No medications on file Assessment/Plan: Problem List Items Addressed This Visit Other Flu-like symptoms - Primary Quarantine x10 days from onset of symptoms and fever free without medication for 24+ hours. Make sure you are getting lots of rest, water, and good nutrition. Family and close contacts should self quarantine x 14 days. Recommend taking Multivitamin, Vitamin D 4000 units daily, and Aspirin 81 mg daily (if not contraindicated). Go to the ER if it is difficult to breath, you cough up blood, chest pain (and not just tenderness because you coughed and hurt your chest but real serious heavy chest pain), confusion, passing out or nearly passing out, or bluish lips. Relevant Orders COVID-19/Influenza A,B Molecular Pending external COVID-19 lab result I have spent 8 minutes with the patient reviewing the HPI and Plan of Care. documented in this [id number] Miscellaneous Notes* Assessment & Plan Note - Rosalina Muñiz MD - 08/23/2021 5:17 PM EDT Associated Problem(s): Obesity (BMI 30-39.9) Body mass index is 33.65 kg/m . Recommend therapeutic lifestyle changes including healthy diet starting with a 500 calorie deficit/day and 30-60 min of exercise at least 3 times/week to help with weight loss. Patient can advance exercise regiment as tolerated. Types of exercise include strength training (cross fit, QUENTIN, weight lifting) or aerobic exercise(/brisk walk/jogging/running) or a combination of both. * Assessment & Plan Note - Rosalina Muñiz MD - 08/23/2021 5:16 PM EDT Associated Problem(s): Migraine Will start sumatriptan for abortive therapy Pt is trying to conceive -will avoid preventative therapy at this time and reevaluate documented in this [id number] Instructions* Patient Instructions* Rosalina Muñiz MD - 08/23/2021 5:15 PM EDT Problem List Items Addressed This Visit Cardiovascular and Mediastinum Migraine Will start sumatriptan for abortive therapy Pt is trying to conceive -will avoid preventative therapy at this time and reevaluate Relevant Medications SUMAtriptan (IMITREX) 50 MG tablet Other Obesity (BMI 30-39.9) - Primary Body mass index is 33.65 kg/m . Recommend therapeutic lifestyle changes including healthy diet starting with a 500 calorie deficit/day and 30-60 min of exercise at least 3 times/week to help with weight loss. Patient can advance exercise regiment as tolerated. Types of exercise include strength training (cross fit, QUENTIN, weight lifting) or aerobic exercise(/brisk walk/jogging/running) or a combination of both. Relevant Orders CBC and Differential Comprehensive Metabolic Panel Lipid Panel If any referrals were placed at the time of your visit please allow 2 weeks for processing. If you haven't heard from anyone within 2 weeks please contact my office so we can look into the status of your referral. If you were given any labs today please ensure they are completed according to the directions given. Most normal results will be available through [employer] however if abnormal, you will be notified. Please allow 48-72 hours for review, and let you know what steps, if any, are needed next. If you haven't heard from us after that please call to inquire. If labs were ordered to be done PRIOR to your next visit we will discuss the results at the time ofyour office visit. If any procedures or imaging studies were ordered that must be prior authorized please give us 2 weeks to get them approved. Once approved someone should call you to schedule them or give you a date and time that they were scheduled for. If you haven't heard anything within 2 weeks of the office visit please call the office so we can look into their status. Customer Service/Billing Questions: [phone] [employer] Assistance: [phone] or [phone] Financial Assistance: [phone] or [phone] documented in this [id number] History of Present illness Narrative* Rosalina Muñiz MD - 08/23/2021 4:13 PM EDT Subjective Patient ID: Federica Figueroa is a 31 y.o. female. Chief Complaint Patient presents with Establish Care HPI Patient is a very pleasant 31-year-old female with past medical history migraines presenting as a new patient to the clinic today to establish care. Migraines patient states that she has migraines a few times per week. When she was in her teens shewas placed on multiple medications [patient does not remember the names] but she would get used tothem and they would stop working. She states Aleve occasionally alleviates the pain. They are associated with her menstrual cycle. She denies having any auras, numbness, tingling or weakness. They tend to last a few hours and she tries to go to sleep to alleviate her symptoms. Currently she is trying to conceive and we discussed preventative versus abortive medications. Pt is also due for her influenza vaccination and tetanus booster. All pertinent positives and negatives are documented in ROS Patient's medications, allergies, past medical history, surgical history history, family history, social history were reviewed. Spent more than 20 minutes with patient, coordinating patient care, including reviewing charts and counseling patient. Patient Active Problem List Diagnosis Obesity (BMI 30-39.9) Migraine History reviewed. No pertinent surgical history. Family History Problem Relation Age of Onset Hypertension Mother Social History Tobacco Use Smoking status: Never Smoker Smokeless tobacco: Never Used Vaping Use Vaping Use: Never used Substance Use Topics Alcohol use: Never Drug use: Never Allergies Allergen Reactions Penicillins Rash Outpatient Medications as of 08/23/2021 Medication Sig Apri 0.15-0.03 mg per tablet SUMAtriptan (IMITREX) 50 MG tablet Take 1 (one) tablet (50 mg total) by mouth every 2 (two) hours as needed for migraine Max of 200 mg in 24hrs . Review of Systems Constitutional: Negative for appetite change, chills, fatigue and fever. Eyes: Negative for visual disturbance. Respiratory: Negative for cough, chest tightness, shortness of breath and wheezing. Cardiovascular: Negative for chest pain and palpitations. Gastrointestinal: Negative for abdominal pain. Genitourinary: Negative for dysuria, frequency, hematuria and urgency. Musculoskeletal: Negative for joint swelling. Skin: Negative for rash. Neurological: Positive for headaches. Negative for dizziness, tremors, weakness and numbness. Psychiatric/Behavioral: Negative for decreased concentration, dysphoric mood and sleep disturbance.The patient is not nervous/anxious. Objective Vitals: 08/23/21 1558 BP: 120/80 BP Location: Right arm Patient Position: Sitting BP Cuff Size: X-large Adult Pulse: 65 Resp: 16 Temp: 98.3 F (36.8 C) TempSrc: Temporal SpO2: 99% Weight: 83.5 kg (184 lb) Height: 5' 2 Estimated body mass index is 33.65 kg/m as calculated from the following: Height as of this encounter: 5' 2. Weight as of this encounter: 83.5 kg (184 lb). Physical Exam Vitals and nursing note reviewed. Constitutional: Appearance: Normal appearance. HENT: Head: Normocephalic and atraumatic. Right Ear: Tympanic membrane and ear canal normal. Left Ear: Tympanic membrane and ear canal normal. Nose: Nose normal. Mouth/Throat: Mouth: Mucous membranes are moist. Eyes: Extraocular Movements: Extraocular movements intact. Conjunctiva/sclera: Conjunctivae normal. Pupils: Pupils are equal, round, and reactive to light. Neck: Thyroid: No thyroid mass. Trachea: Trachea normal. Cardiovascular: Rate and Rhythm: Normal rate and regular rhythm. Heart sounds: Normal heart sounds. Pulmonary: Effort: Pulmonary effort is normal. Breath sounds: Normal breath sounds. Abdominal: General: Abdomen is flat. There is no distension. Palpations: Abdomen is soft. Musculoskeletal: General: Normal range of motion. Cervical back: Full passive range of motion without pain and normal range of motion. Skin: General: Skin is warm. Neurological: General: No focal deficit present. Mental Status: She is alert and oriented to person, place, and time. Mental status is at baseline. Cranial Nerves: Cranial nerves are intact. Sensory: Sensation is intact. Motor: Motor function is intact. Coordination: Coordination is intact. Gait: Gait is intact. Deep Tendon Reflexes: Reflex Scores: Bicep reflexes are 2+ on the right side and 2+ on the left side. Patellar reflexes are 2+ on the right side and 2+ on the left side. Psychiatric: Attention and Perception: Attention and perception normal. Mood and Affect: Mood normal. Speech: Speech normal. Behavior: Behavior normal. Thought Content: Thought content normal. Cognition and Memory: Cognition and memory normal. Judgment: Judgment normal. PHQ9: TRINO-7 Tobacco Counseling: Counseling given: Not Answered Assessment/Plan: Problem List Items Addressed This Visit Cardiovascular and Mediastinum Migraine Will start sumatriptan for abortive therapy Pt is trying to conceive -will avoid preventative therapy at this time and reevaluate Relevant Medications SUMAtriptan (IMITREX) 50 MG tablet Other Obesity (BMI 30-39.9) - Primary Body mass index is 33.65 kg/m . Recommend therapeutic lifestyle changes including healthy diet starting with a 500 calorie deficit/day and 30-60 min of exercise at least 3 times/week to help with weight loss. Patient can advance exercise regiment as tolerated. Types of exercise include strength training (cross fit, QUENTIN, weight lifting) or aerobic exercise(/brisk walk/jogging/running) or a combination of both. Relevant Orders CBC and Differential Comprehensive Metabolic Panel Lipid Panel Return if symptoms worsen or fail to improve. For any new medications prescribed today, patient was educated about indications for the medication, how to take the medication and potential side effects of the medications. Rosalina Muñiz MD [facility] Diagnosis Obesity (BMI 30-39.9)- Primary Intractable chronic migraine without aura and without status migrainosus [facility] Diagnosis Flu-like symptoms- Primary [facility] Diagnosis Herpes zoster without complication- Primary [facility]* Diagnosis Bronchitis Bronchitis, not specified as acute or chronic [facility]* Diagnosis Anemia, unspecified type- Primary [facility]* Diagnosis Iron deficiency anemia, unspecified iron deficiency anemia type- Primary [facility]* Diagnosis Obesity (BMI 30-39.9)- Primary Sinusitis, unspecified chronicity, unspecified location PCOS (polycystic ovarian syndrome) Polycystic ovaries [facility]* Diagnosis PCOS (polycystic ovarian syndrome)- Primary Polycystic ovaries Obesity (BMI 30-39.9) Infertility, female [facility]* Diagnosis Otalgia of both ears Obesity (BMI 30-39.9) [facility]* Diagnosis Otalgia of both ears Obesity (BMI 30-39.9) documented in this encounter [facility] note* Diagnosis Upper respiratory tract infection, unspecified type- Primary Other atopic dermatitis documented in this encounter [facility] note* Diagnosis Other iron deficiency anemia- Primary PCOS (polycystic ovarian syndrome) Polycystic ovaries Anxiety Anxiety state, unspecified Tension headache Mild intermittent asthma, unspecified whether complicated documented in this encounter [facility] Work Phone: Evaluation note* Diagnosis Acute asthmatic bronchitis- Primary Unspecified asthma, with exacerbation documented in this encounter [facility] Work Phone: Evaluation note* Diagnosis Pneumonia, unspecified organism documented in this encounter [facility] Work Phone: evaluation note* Diagnosis Encounter for supervision of high risk in first trimester, antepartum- Primary with uncertain dates in first trimester 8 weeks gestation of state, incidental Screening for cervical cancer Screening for malignant neoplasm of the cervix Screening for HPV (human papillomavirus) Special screening examination for human papillomavirus (HPV) Asthma affecting in first trimester Obesity affecting in first trimester, unspecified obesity type Skin lesion of breast Unspecified breast disorder Nausea and vomiting during History of depression Personal history of other mental disorder Penicillin allergy Personal history of allergy to penicillin documented in this encounter [facility] note* Diagnosis Encounter for supervision of high risk in first trimester, antepartum- Primary Dysuria during in first trimester Difficulty in urination Other symptoms involving urinary system documented in this encounter [facility] note* Diagnosis Encounter for supervision of high risk in first trimester, antepartum- Primary Encounter for fitting and adjustment of pessary Fitting and adjustment of other device documented in this encounter [facility] note* Diagnosis Encounter for screening for malformation using ultrasound- Primary 12 weeks gestation of state, incidental documented in this encounter [facility] note* Diagnosis Supervision of high risk in second trimester- Primary Unspecified high-risk 12 weeks gestation of state, incidental Obesity affecting in second trimester, unspecified obesity type Skin lesion of breast Unspecified breast disorder History of migraine headaches Personal history of other disorders of nervous system and sense organs [facility] Diagnosis Anemia during in first trimester- Primary documented in this encounter [facility] note* Diagnosis Supervision of high risk in second trimester- Primary Unspecified high-risk Obesity affecting in second trimester, unspecified obesity type Anemia during in second trimester 16 weeks gestation of state, incidental History of depression Personal history of other mental disorder Penicillin allergy Personal history of allergy to penicillin documented in this encounter [facility] note* Diagnosis 20 weeks gestation of (HCC)- Primary state, incidental Supervision of high risk in second trimester (HCC) Unspecified high-risk Obesity affecting in second trimester, unspecified obesity type (HCC) 8 weeks gestation of (HCC) state, incidental Penicillin allergy Personal history of allergy to penicillin * Assessment & Plan Note - Kelya Kay MD - 02/17/2025 3:16 PM EDT Associated Problem(s): Supervision of high risk in second trimester ([facility]) Orders: CONSULT TO ALLERGY/IMMUNOLOGY; Future * Assessment & Plan Note - Keyla Kay MD - 02/17/2025 3:16 PM EDT Associated Problem(s): Obesity affecting in second trimester ([facility]) * Assessment & Plan Note - Keyla Kay MD - 02/17/2025 3:16 PM EDT Associated Problem(s): Penicillin allergy Orders: CONSULT TO ALLERGY/IMMUNOLOGY; Future documented in this encounter [facility] note* Diagnosis Encounter for anatomic survey (HCC)- Primary Encounter for anatomic survey 20 weeks gestation of (HCC) state, incidental Obesity affecting in second trimester, unspecified obesity type (HCC) 20 weeks gestation of (HCC)- Primary state, incidental Supervision of high risk in second trimester (HCC) Unspecified high-risk Obesity affecting in second trimester, unspecified obesity type (HCC) 8 weeks gestation of (HCC) state, incidental Penicillin allergy Personal history of allergy to penicillin documented in this encounter [facility] note* Diagnosis 20 weeks gestation of (HCC)- Primary state, incidental Supervision of high risk in second trimester (HCC) Unspecified high-risk Obesity affecting in second trimester, unspecified obesity type (HCC) 8 weeks gestation of (HCC) state, incidental Penicillin allergy Personal history of allergy to penicillin Obesity affecting in second trimester, unspecified obesity type (HCC)- Primary 29 weeks gestation of ([facility]) state, incidental Supervision of high risk in second trimester ([facility]) Unspecified high-risk Need for vaccination Need for prophylactic vaccination and inoculation against unspecified single disease documented in this encounter [facility] note* Diagnosis 20 weeks gestation of (HCC)- Primary state, incidental Supervision of high risk in second trimester (HCC) Unspecified high-risk Obesity affecting in second trimester, unspecified obesity type (HCC) 8 weeks gestation of ([facility]) state, incidental Penicillin allergy Personal history of allergy to penicillin Anemia complicating , first trimester ([facility])- Primary Antepartum anemia, third trimester ([facility]) documented in this encounter [facility] note* Diagnosis 20 weeks gestation of (HCC)- Primary state, incidental Supervision of high risk in second trimester ([facility]) Unspecified high-risk Obesity affecting in second trimester, unspecified obesity type (HCC) 8 weeks gestation of ([facility]) state, incidental Penicillin allergy Personal history of allergy to penicillin Rash- Primary Rash and other nonspecific skin eruption Penicillin allergy Personal history of allergy to penicillin 30 weeks gestation of ([facility]) state, incidental documented in this encounter [facility] note* Diagnosis 20 weeks gestation of (HCC)- Primary state, incidental Supervision of high risk in second trimester (HCC) Unspecified high-risk Obesity affecting in second trimester, unspecified obesity type (HCC) 8 weeks gestation of ([facility]) state, incidental Penicillin allergy Personal history of allergy to penicillin 31 weeks gestation of (HCC)- Primary state, incidental Anemia complicating , first trimester (HCC) Antepartum anemia, third trimester ([facility]) Other obesity affecting in third trimester (HCC) Supervision of high risk in third trimester ([facility]) Unspecified high-risk * Assessment & Plan Note - Jamey Mcghee MD - 05/06/2025 9:09 AM EDTAssociated Problem(s): Anemia complicating , first trimester (HCC) * Assessment & Plan Note - Jamey Mcghee MD - 05/06/2025 9:09 AM EDTAssociated Problem(s): Obesity affecting in second trimester (HCC) Growth US today * Assessment & Plan Note - Jamey Mcghee MD - 05/06/2025 9:09 AM EDTAssociated Problem(s): Supervision of high risk in second trimester (HCC) documented in this encounter [facility] note* Diagnosis 20 weeks gestation of (HCC)- Primary state, incidental Supervision of high risk in second trimester (HCC) Unspecified high-risk Obesity affecting in second trimester, unspecified obesity type (HCC) 8 weeks gestation of ([facility]) state, incidental Penicillin allergy Personal history of allergy to penicillin Encounter for ultrasound to check growth ([facility])- Primary Encounter for routine screening for malformation using ultrasonics 31 weeks gestation of (HCC) state, incidental 31 weeks gestation of (HCC)- Primary state, incidental Anemia complicating , first trimester (HCC) Antepartum anemia, third trimester (HCC) Other obesity affecting in third trimester (HCC) Supervision of high risk in third trimester (HCC) Unspecified high-risk documented in this encounter [facility] note* Diagnosis 20 weeks gestation of (HCC)- Primary state, incidental Supervision of high risk in second trimester (HCC) Unspecified high-risk Obesity affecting in second trimester, unspecified obesity type (HCC) 8 weeks gestation of (HCC) state, incidental Penicillin allergy Personal history of allergy to penicillin 31 weeks gestation of (HCC)- Primary state, incidental Anemia complicating , first trimester (HCC) Antepartum anemia, third trimester (HCC) Other obesity affecting in third trimester (HCC) Supervision of high risk in third trimester (HCC) Unspecified high-risk Maternal iron deficiency anemia complicating , third trimester (HCC)- Primary [facility] Diagnosis 20 weeks gestation of (HCC)- Primary state, incidental Supervision of high risk in second trimester (HCC) Unspecified high-risk Obesity affecting in second trimester, unspecified obesity type (HCC) 8 weeks gestation of ([facility]) state, incidental Penicillin allergy Personal history of allergy to penicillin 31 weeks gestation of ([facility])- Primary state, incidental Anemia complicating , first trimester ([facility]) Antepartum anemia, third trimester ([facility]) Other obesity affecting in third trimester ([facility]) Supervision of high risk in third trimester ([facility]) Unspecified high-risk Supervision of high risk in third trimester ([facility])- Primary Unspecified high-risk Other obesity affecting in third trimester ([facility]) Antepartum anemia, third trimester ([facility]) 33 weeks gestation of ([facility]) state, incidental [facility] encounter [facility] Diagnosis 20 weeks gestation of (HCC)- Primary state, incidental Supervision of high risk in second trimester ([facility]) Unspecified high-risk Obesity affecting in second trimester, unspecified obesity type (HCC) 8 weeks gestation of ([facility]) state, incidental Penicillin allergy Personal history of allergy to penicillin 31 weeks gestation of ([facility])- Primary state, incidental Anemia complicating , first trimester ([facility]) Antepartum anemia, third trimester ([facility]) Other obesity affecting in third trimester ([facility]) Supervision of high risk in third trimester ([facility]) Unspecified high-risk Maternal iron deficiency anemia complicating , third trimester ([facility])- Primary [facility] Diagnosis 20 weeks gestation of (HCC)- Primary state, incidental Supervision of high risk in second trimester ([facility]) Unspecified high-risk Obesity affecting in second trimester, unspecified obesity type (HCC) 8 weeks gestation of ([facility]) state, incidental Penicillin allergy Personal history of allergy to penicillin 31 weeks gestation of ([facility])- Primary state, incidental Anemia complicating , first trimester (HCC) Antepartum anemia, third trimester (HCC) Other obesity affecting in third trimester (HCC) Supervision of high risk in third trimester (HCC) Unspecified high-risk Maternal iron deficiency anemia complicating , third trimester (HCC)- Primary documented in this encounter [facility] note* Diagnosis 20 weeks gestation of (HCC)- Primary state, incidental Supervision of high risk in second trimester (HCC) Unspecified high-risk Obesity affecting in second trimester, unspecified obesity type (HCC) 8 weeks gestation of ([facility]) state, incidental Penicillin allergy Personal history of allergy to penicillin 31 weeks gestation of ([facility])- Primary state, incidental Anemia complicating , first trimester ([facility]) Antepartum anemia, third trimester ([facility]) Other obesity affecting in third trimester ([facility]) Supervision of high risk in third trimester ([facility]) Unspecified high-risk Maternal iron deficiency anemia complicating , third trimester ([facility])- Primary documented in this encounter [facility] note* Diagnosis 20 weeks gestation of ([facility])- Primary state, incidental Supervision of high risk in second trimester ([facility]) Unspecified high-risk Obesity affecting in second trimester, unspecified obesity type (HCC) 8 weeks gestation of ([facility]) state, incidental Penicillin allergy Personal history of allergy to penicillin 31 weeks gestation of ([facility])- Primary state, incidental Anemia complicating , first trimester ([facility]) Antepartum anemia, third trimester ([facility]) Other obesity affecting in third trimester ([facility]) Supervision of high risk in third trimester ([facility]) Unspecified high-risk Maternal iron deficiency anemia complicating , third trimester ([facility])- Primary documented in this encounter [facility] note* Diagnosis 20 weeks gestation of (HCC)- Primary state, incidental Supervision of high risk in second trimester ([facility]) Unspecified high-risk Obesity affecting in second trimester, unspecified obesity type (HCC) 8 weeks gestation of ([facility]) state, incidental Penicillin allergy Personal history of allergy to penicillin 31 weeks gestation of ([facility])- Primary state, incidental Anemia complicating , first trimester (HCC) Antepartum anemia, third trimester ([facility]) Other obesity affecting in third trimester ([facility]) Supervision of high risk in third trimester ([facility]) Unspecified high-risk Supervision of high risk in third trimester (HCC)- Primary Unspecified high-risk Anemia during in third trimester (HCC) Other obesity affecting in third trimester (HCC) 35 weeks gestation of (HCC) state, incidental Polyhydramnios in third trimester complication, single or unspecified fetus (HCC) documented in this encounter [facility] note* Diagnosis 20 weeks gestation of (HCC)- Primary state, incidental Supervision of high risk in second trimester (HCC) Unspecified high-risk Obesity affecting in second trimester, unspecified obesity type (HCC) 8 weeks gestation of (HCC) state, incidental Penicillin allergy Personal history of allergy to penicillin 31 weeks gestation of (HCC)- Primary state, incidental Anemia complicating , first trimester (HCC) Antepartum anemia, third trimester (HCC) Other obesity affecting in third trimester ([facility]) Supervision of high risk in third trimester ([facility]) Unspecified high-risk Obesity affecting in third trimester, unspecified obesity type ([facility])- Primary Encounter for ultrasound to assess growth ([facility]) 35 weeks gestation of ([facility]) state, incidental Polyhydramnios in third trimester complication, single or unspecified fetus (HCC) documented in this encounter [facility] noteNo assessment information availableNortheastern Center Services Work Phone: Evaluation note* Diagnosis 20 weeks gestation of (HCC)- Primary state, incidental Supervision of high risk in second trimester (HCC) Unspecified high-risk Obesity affecting in second trimester, unspecified obesity type (HCC) 8 weeks gestation of ([facility]) state, incidental Penicillin allergy Personal history of allergy to penicillin 31 weeks gestation of (HCC)- Primary state, incidental Anemia complicating , first trimester (HCC) Antepartum anemia, third trimester (HCC) Other obesity affecting in third trimester ([facility]) Supervision of high risk in third trimester ([facility]) Unspecified high-risk Supervision of high risk in third trimester (HCC)- Primary Unspecified high-risk 36 weeks gestation of (HCC) state, incidental Other obesity affecting in third trimester (HCC) Anemia during in third trimester (HCC) Polyhydramnios in third trimester complication, single or unspecified fetus (HCC) documented in this encounter [facility] note* Diagnosis 20 weeks gestation of (HCC)- Primary state, incidental Supervision of high risk in second trimester (HCC) Unspecified high-risk Obesity affecting in second trimester, unspecified obesity type (HCC) 8 weeks gestation of (HCC) state, incidental Penicillin allergy Personal history of allergy to penicillin 31 weeks gestation of (HCC)- Primary state, incidental Anemia complicating , first trimester (HCC) Antepartum anemia, third trimester (HCC) Other obesity affecting in third trimester (HCC) Supervision of high risk in third trimester (HCC) Unspecified high-risk Proteinuria affecting in third trimester (HCC)- Primary Pulmonary embolism affecting in third trimester ([facility]) documented [facility] encounter [facility]* Diagnosis 20 weeks gestation of (HCC)- Primary state, incidental Supervision of high risk in second trimester (HCC) Unspecified high-risk Obesity affecting in second trimester, unspecified obesity type ([facility]) 8 weeks gestation of ([facility]) state, incidental Penicillin allergy Personal history of allergy to penicillin 31 weeks gestation of ([facility])- Primary state, incidental Anemia complicating , first trimester (HCC) Antepartum anemia, third trimester (HCC) Other obesity affecting in third trimester ([facility]) Supervision of high risk in third trimester ([facility]) Unspecified high-risk 37 weeks gestation of ([facility])- Primary state, incidental Group beta Strep positive Anemia complicating , third trimester (HCC) Other obesity affecting in third trimester (HCC) Polyhydramnios in third trimester complication, single or unspecified fetus ([facility]) Pulmonary embolism affecting in third trimester ([facility]) * Assessment & Plan Note - Jamey Mcghee MD - 06/17/2025 2:34 PM EDTAssociated Problem(s): Group beta Strep positive Orders: URINE OB DIP B/O * Assessment & Plan Note - Jamey Mcghee MD - 06/17/2025 2:34 PM EDTAssociated Problem(s): Polyhydramnios ([facility]) BS log reviewed & all normal. Orders: URINE OB DIP B/O * Assessment & Plan Note - Jamey Mcghee MD - 06/17/2025 2:34 PM EDTAssociated Problem(s): Pulmonary embolism affecting (HCC) Continue lovenox 100mg bid. Plan to stop 24hrs prior to IOL. documented in this encounter [facility]* Diagnosis 20 weeks gestation of (HCC)- Primary state, incidental Supervision of high risk in second trimester ([facility]) Unspecified high-risk Obesity affecting in second trimester, unspecified obesity type ([facility]) 8 weeks gestation of ([facility]) state, incidental Penicillin allergy Personal history of allergy to penicillin 31 weeks gestation of ([facility])- Primary state, incidental Anemia complicating , first trimester ([facility]) Antepartum anemia, third trimester ([facility]) Other obesity affecting in third trimester ([facility]) Supervision of high risk in third trimester ([facility]) Unspecified high-risk 37 weeks gestation of ([facility])- Primary state, incidental Group beta Strep positive Anemia complicating , third trimester ([facility]) Other obesity affecting in third trimester ([facility]) Polyhydramnios in third trimester complication, single or unspecified fetus ([facility]) Pulmonary embolism affecting in third trimester ([facility]) Supervision of high risk in third trimester ([facility])- Primary Unspecified high-risk Anemia complicating , third trimester ([facility]) Group beta Strep positive Other obesity affecting in third trimester ([facility]) Polyhydramnios in third trimester complication, single or unspecified fetus (HCC) Pulmonary embolism affecting in third trimester ([facility]) 38 weeks gestation of ([facility]) state, incidental Excessive growth, antepartum, single or unspecified fetus ([facility]) [facility] Diagnosis 20 weeks gestation of (HCC)- Primary state, incidental Supervision of high risk in second trimester ([facility]) Unspecified high-risk Obesity affecting in second trimester, unspecified obesity type ([facility]) 8 weeks gestation of ([facility]) state, incidental Penicillin allergy Personal history of allergy to penicillin 31 weeks gestation of ([facility])- Primary state, incidental Anemia complicating , first trimester (HCC) Antepartum anemia, third trimester (HCC) Other obesity affecting in third trimester (HCC) Supervision of high risk in third trimester (HCC) Unspecified high-risk 37 weeks gestation of (HCC)- Primary state, incidental Group beta Strep positive Anemia complicating , third trimester (HCC) Other obesity affecting in third trimester (HCC) Polyhydramnios in third trimester complication, single or unspecified fetus (HCC) Pulmonary embolism affecting in third trimester ([facility]) Excessive growth, antepartum, single or unspecified fetus (HCC)- Primary 36 weeks gestation of ([facility]) state, incidental Supervision of high risk in third trimester ([facility]) Unspecified high-risk Polyhydramnios in third trimester complication, single or unspecified fetus (HCC) Obesity affecting in second trimester, unspecified obesity type ([facility]) documented in this encounter [facility]* Diagnosis 20 weeks gestation of ([facility])- Primary state, incidental Supervision of high risk in second trimester ([facility]) Unspecified high-risk Obesity affecting in second trimester, unspecified obesity type ([facility]) 8 weeks gestation of ([facility]) state, incidental Penicillin allergy Personal history of allergy to penicillin 31 weeks gestation of ([facility])- Primary state, incidental Anemia complicating , first trimester ([facility]) Antepartum anemia, third trimester ([facility]) Other obesity affecting in third trimester ([facility]) Supervision of high risk in third trimester ([facility]) Unspecified high-risk 37 weeks gestation of ([facility])- Primary state, incidental Group beta Strep positive Anemia complicating , third trimester ([facility]) Other obesity affecting in third trimester (HCC) Polyhydramnios in third trimester complication, single or unspecified fetus (HCC) Pulmonary embolism affecting in third trimester ([facility]) Supervision of high risk in third trimester ([facility])- Primary Unspecified high-risk Anemia complicating , third trimester ([facility]) Other obesity affecting in third trimester ([facility]) Polyhydramnios in third trimester complication, single or unspecified fetus (HCC) Pulmonary embolism affecting in third trimester ([facility]) Excessive growth, antepartum, single or unspecified fetus (HCC) 38 weeks gestation of ([facility]) state, incidental documented in this encounter [facility] Present illness NarrativeTwo 11-year-old G1, P1 presents for consult on PCOS and potential achieving fertility. Patient was or iginally conceived with ovulation induction with letrozole 5 mg. Patient has questions that she is thinking about starting here shortly. Patient is already quite vaccinated. Patient not taking [facility], [facility]-[address] Work Phone: Hospital Discharge instructionsAdditional Instructions Collect a 24 hour urine and return to [facility] lab on Saturday 06/16. Keep your OB appt on 06/17. If you have any worsening symptoms over the weekend, call your OB or [facility] Work Phone: Reason for referral (narrative)* Consultation (Routine) - Authorized Specialty Diagnoses / Procedures Referred By Ferny chaidez Referred To Contact Primary Care Procedures Follow Up In Primary Care - Established Mandy Plascencia PA-C [address] [place] [address] [place] [address] Referral ID Status Reason Start Date Expiration Date V isits Requested Visits Authorized [id number] Authorized 09/19/2023 09/18/2024 1 1 [facility] Work Phone: Reason for referral (narrative)* Diagnostic Procedure Only (Routine) - Authorized Specialty Diagnoses / Procedures Referred By Ferny chaidez Referred To Contact [facility] Diagnoses 12 weeks gestation of Procedures OBSTETRIC ULTRASOUND WHI US PREG UTERUS AFTER 1ST TRIMEST GESTATION Naila Escobar APRN.CNP [address] [place] [address] [facility] [address] [place] [address] Referral ID Status Reason Start Date Expiration Date Visits Requested Visits Authorized [id number] Authorized Auto-Generat ed Referral 11/25/2024 11/25/2025 1 1 * Diagnostic Procedure Only (Routine) - New Request Specialty Diagnoses / Procedures Referred By Ferny chaidez Referred To Contact [facility] Diagnoses 12 weeks gestation of Procedures OBSTETRIC ULTRASOUND WHI US PREG UTERUS AFTER 1ST TRIMEST GESTATION Naila Escobar APRN.[place] [address] [place] [address] [facility] [address] [place] [address] Referral ID Status Reason Start Date Expiration Date Visits Requested Visits Authorized [id number] New Request Auto-Generat ed Referral 11/25/2024 11/25/2025 1 1 [facility] (narrative)No reason for referral information availableMendocino [facility] Work Phone: Reason for visit Narrative* Imaging (Routine) - Authorized Specialty Diagnoses / Procedures Referred By Ferny chaidez Referred To Contact Radiology Diagnoses Pneumonia, unspecified organism Procedures XR chest 2 views Vaishali Us APRN-[employer]ATOR [address] [place] [address] Phone: tel: fax: Referral ID Status Reason Start Date Expiration Date Visits Requested Visits Authorized [id number] Authorized Perform Procedure 4 10/20/2025 1 1 [facility] Work Phone: Summary Purpose Family History No Family History Records Found Mother Name Dates Details Family history of hypertensi on(V17.49, Z82.49) Status:Active Family history of mitral delgado ve disorder(V17.49, Z82.49) Status:Active Unknown Family Member Name Dates Details Family history of hypertensi on: Mother(V17.49, Z82.49) Status:Active Family history of mitral delgado ve disorder: Mother(V17.49, Z82.49) Status:Active Unknown Family Member Name Dates Details Family history of hypertensi on: Mother(V17.49, Z82.49) Status:Active Family history of mitral delgado ve disorder: Mother(V17.49, Z82.49) Status:Active Unknown Family Member Name Dates Details Family history of hypertensi on: Mother(V17.49, Z82.49) Status:Active Family history of mitral delgado ve disorder: Mother(V17.49, Z82.49) Status:Active Unknown Family Member Name Dates Details Family history of hypertensi on: Mother(V17.49, Z82.49) Status:Active Family history of mitral delgado ve disorder: Mother(V17.49, Z82.49) Status:Active Unknown Family Member Name Dates Details Family history of hypertensi on: Mother(V17.49, Z82.49) Status:Active Family history of mitral delgado ve disorder: Mother(V17.49, Z82.49) Status:Active Unknown Family Member Name Dates Details Family history of hypertensi on: Mother(V17.49, Z82.49) Status:Active Family history of mitral delgado ve disorder: Mother(V17.49, Z82.49) Status:Active Unknown Family Member Name Dates Details Family history of hypertensi on: Mother(V17.49, Z82.49) Status:Active Family history of mitral delgado ve disorder: Mother(V17.49, Z82.49) Status:Active Unknown Family Member Name Dates Details Family history of hypertensi on: Mother(V17.49, Z82.49) Status:Active Family history of mitral delgado ve disorder: Mother(V17.49, Z82.49) Status:Active Unknown Family Member Name Dates Details Family history of hypertensi on: Mother(V17.49, Z82.49) Status:Active Family history of mitral delgado ve disorder: Mother(V17.49, Z82.49) Status:Active Unknown Family Member Name Dates Details Family history of hypertensi on: Mother(V17.49, Z82.49) Status:Active Family history of mitral delgado ve disorder: Mother(V17.49, Z82.49) Status:Active Unknown Family Member Name Dates Details Family history of hypertensi on: Mother(V17.49, Z82.49) Status:Active Family history of mitral delgado ve disorder: Mother(V17.49, Z82.49) Status:Active Unknown Family Member Name Dates Details Family history of mitral delgado ve disorder: Mother(V17.49, Z82.49) Status:Active Family history of hypertensi on: Mother(V17.49, Z82.49) Status:Active Unknown Family Member Name Dates Details Family history of hypertensi on: Mother(V17.49, Z82.49) Status:Active Family history of mitral delgado ve disorder: Mother(V17.49, Z82.49) Status:Active Advance Directives No Advanced Directives Records FoundDocuments on File Type Date Recorded Patient Payable Representative Expl anation Advance Directives and Living Will Advance Directive Response Recorded Date/ Time Do you have a Healthcare Power of Computer Mechanic? Yes June 13, 2025 10:23am Advance Directive Response Recorded Date/ Time Do you have a Healthcare Power of Computer Mechanic? Yes July 01, 2025 8:37am Do you have a Healthcare Power of Computer Mechanic? Yes June 13, 2025 10:23am Chief Complaint PT HERE TODAY TO DISCUSS GETTING . PT HAD TO GO ON MEDICATIONS FOR HER FIRST TO HELP HER OVULATE. PT HAD BLOOD WORK DONE MONTHLY. PT HAS NO CONCERNS. LMP-05/08/2021 Reason for Referral Specialty Diagnoses / Procedures Referred By Ferny chaidez Referred To Contact Nutrition Diagnoses Obesity (BMI 30-39.9) Rosalina Muñiz MD [address] [place] [address] Nutrition Services [address] [place] [phone] Referral ID Status Reason Start Date Expiration Date V isits Requested Visits Authorized [id number] Authorized 11/08/2022 11/08/2023 3 3 Specialty Diagnoses / Procedures Referred By Ferny chaidez Referred To Contact Diagnoses Obesity (BMI 30-39.9) PCOS (polycystic ovarian syndrome) Infertility, female Rosalina Muñiz MD [address] [address] Referral ID Status Reason Start Date Expiration Date V isits Requested Visits Authorized [id number] Pending Review 1 1 Specialty Diagnoses / Procedures Referred By Ferny chaidez Referred To Contact Rosalina Muñiz MD [address] [address] Referral ID Status Reason Start Date Expiration Date Visits Re quested Visits Authorized [id number] Closed 1 1 Chief Complaint and Reason for Visit Chief Complaint Admit Date Incision & Drainage thrombosed hemorrhoi d June 09, 2025 8:05am Chief Complaint Admit Date Incision & Drainage thrombosed hemorrhoi d June 09, 2025 8:05am R/O PRE E June 13, 2025 1: 15pm Reason for Visit Admit Date Thrombosed external hemorrhoid June 092024 8:05am Reason for Visit Admit Date Thrombosed external hemorrhoid June 092024 8:05am 36 weeks gestation of May 302024 1:15pm Proteinuria affecting in third trimester June 13, 2025 1:15pm Pulmonary embolus June 13, 2025 1: 15pm Chief Complaint Admit Date Incision & Drainage thrombosed hemorrhoi d June 09, 2025 8:05am R/O PRE E June 13, 2025 1: 15pm VAG July 01, 2025 7:28am Reason for Visit Admit Date Thrombosed external hemorrhoid June 092024 8:05am Pulmonary embolus June 13, 2025 1: 15pm 36 weeks gestation of May 302024 1:15pm Proteinuria affecting in third trimester June 13, 2025 1:15pm 39 weeks gestation of [facility] 2024 7:28am Anemia July 01, 2025 7:28am LGA (large for gestational a ge) fetus affecting management of mother July 01, 2025 7:28am Maternal obesity affecting , an tepartum July 01, 2025 7:28am Obesity, Class II, BMI 35-39.9, isolated July 01, 2025 7:28am Polyhydramnios affecting in th ird trimester July 01, 2025 7:28am Pulmonary embolus July 01, 2025 7:28am Single live July 01, 2025 7:28am Supervision of high risk in th ird trimester July 01, 2025 7:28am (spontaneous vaginal delivery) [facility] 2024 7:28am Third trimester July 01, 2025 7:28am Additional Source Comments Reason for Visit (unrecogniz ed section and content) Reason Comments Transfer Of Care Reason Comments Establish Care Reason Comments Rash Started Monday Reason Comments Follow-up Reason Comments Follow-up Medication f/u Gap Closure (Health Maintenance) There a re no preventive care reminders to display for this patient. Reason Onset Date Comments TAYLA Wong 12/22/2022 Reason Comments Follow-up Otalgia Reason Comments Ear Pain Left ear pain and ra sh on both legs Reason Comments Establish Care Patient here to get established as an new patient and [facility] PCP left the practice at [facility].Patient [facility] has seen counselor in [place] and told her to follow up with PCP for anxiety.Pap done [address] 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 Reason Comments Wheezing Patient wheezing, co ugh, x 6 days. Reason Comments New OB intake questions Reason Comments Care Center US Results Reason Onset Date Comments Care 12/09/2024 Reason Onset Date Comments Care 12/16/2024 Reason Comments US Specialty Diagnoses / Procedures Referred By Contac t Referred To Contact [facility] Diagnoses 12 weeks gestation of Procedures OBSTETRIC ULTRASOUND WHI US PREG UTERUS AFTER 1ST TRIMEST GESTATION Naila Escobar, LYLY.RETAIL MERCHANDISING COORDINATOR [address] [place] [address] Phone: tel: fax: [facility] [address] [place] [address] Referral ID Status Reason Start Date Expiration Date V isits Requested Visits Authorized [id number] Closed Auto-Generate d Referral 11/25/2024 11/25/2025 1 1 Reason Onset Date Comments Care 12/23/2024 Reason Comments Results Reason Onset Date Comments Care 01/20/2025 Reason Onset Date Comments Care 02/17/2025 Specialty Diagnoses / Procedures Referred By Contac t Referred To Contact [facility] Diagnoses 12 weeks gestation of ([facility]) Procedures OBSTETRIC ULTRASOUND WHI US PREG UTERUS AFTER 1ST TRIMEST GESTATION Naila Escobar [place]N[address] [address] Phone: tel: fax: [facility] [address] [place] [address] Referral ID Status Reason Start Date Expiration Date V isits Requested Visits Authorized [id number] Closed Auto-Generate d Referral 11/25/2024 11/25/2025 1 1 Reason Onset Date Comments Care 04/21/2025 Reason Comments penicillin testing Specialty Diagnoses / Procedures Referred By Contac t Referred To Contact Allergy Diagnoses 20 weeks gestation of ([facility]) Supervision of high risk in second trimester ([facility]) Penicillin allergy Procedures CONSULT TO ALLERGY/IMMUNOLOGY OFFICE/OUTPATIENT [facility] 60 MINUTES Keyla Kay MD [address] [place] [address] Phone: tel: fax: Referral ID Status Reason Start Date Expiration Date V isits Requested Visits Authorized [id number] Closed PCP Requested Referral 02/17/2025 02/17/2026 1 1 Reason Onset Date Comments Care 05/06/2025 Specialty Diagnoses / Procedures Referred By Contac t Referred To Contact [facility] Diagnoses 29 weeks gestation of ([facility]) Supervision of high risk in second trimester ([facility]) Procedures OBSTETRIC ULTRASOUND WHI US PREG UTERUS AFTER 1ST TRIMEST GESTATION Karyn Aleman MD [address] [place] [address] Phone: tel: fax: [facility] [address] [place] [address] Referral ID Status Reason Start Date Expiration Date V isits Requested Visits Authorized [id number] Closed Auto-Generate d Referral 04/21/2025 04/21/2026 2 1 Reason Comments Anemia Reason Onset Date Comments Care 05/20/2025 Reason Comments Non-Chemotherapy Treatment Specialty Diagnoses / Procedures Referred By Contac t Referred To Contact Diagnoses Maternal iron deficiency anemia complicating , third trimester ([facility]) Procedures IRON SUCROSE INJECTION PER 1 MG Yudi Ndiaye PA-C [address] [place] [address] Phone: tel: fax: Hematology/Oncology [address] [place] [address] Phone: tel: fax: Referral ID Status Reason Start Date Expiration Date Visits Requested Visits Authorized [id number] Authorized Patient Cleared - Admin/Chairm an/Director advise to proceed or did not respond 05/22/2025 10/29/2025 99 99 Reason Onset Date Comments Care 06/03/2025 Reason Comments Hemorrhoids Reason Onset Date Comments Care 06/10/2025 Reason Comments Headache in Reason Onset Date Comments Care 06/17/2025 Reason Onset Date Comments Care 06/23/2025 Reason Comments Nst (Non Stress Test) Specialty Diagnoses / Procedures Referred By Contac t Referred To Contact [facility] Diagnoses 36 weeks gestation of ([facility]) Supervision of high risk in third trimester ([facility]) Polyhydramnios in third trimester complication, single or unspecified fetus ([facility]) Procedures OBSTETRIC ULTRASOUND WHI US PREG UTERUS AFTER 1ST TRIMEST GESTATION Sheryl Bejarano APRN.[facility] [address] [place] [address] Phone: tel: fax: [facility] [address] [place] [id number] Referral ID Status Reason Start Date Expiration Date V isits Requested Visits Authorized [id number] Closed Auto-Generate d Referral 06/10/2025 06/10/2026 3 1 Reason Onset Date Comments Care 06/25/2025 Reason Comments Ob Delivery Note INFORMATION SOURCE (unrecogn ized section and content) DATE CREATED AUTHOR 04/06/2019 [facility] DATE CREATED AUTHOR AUTHOR'S ORGANIZ ATION 08/04/2019 [facility] DATE CREATED AUTHOR AUTHOR'S ORGANIZ ATION 08/19/2021 [facility] DATE CREATED AUTHOR AUTHOR'S ORGANIZ ATION 11/06/2021 [facility] DATE CREATED AUTHOR AUTHOR'S ORGANIZ ATION 03/03/2022 [employer] DATE CREATED AUTHOR AUTHOR'S ORGANIZ ATION 09/14/2022 [facility] DATE CREATED AUTHOR AUTHOR'S ORGANIZ ATION 11/13/2022 [facility] DATE CREATED AUTHOR AUTHOR'S ORGANIZ ATION 04/08/2023 [facility] DATE CREATED AUTHOR AUTHOR'S ORGANIZ ATION 11/10/2023 [facility] DATE CREATED AUTHOR AUTHOR'S ORGANIZ ATION 10/24/2024 [facility] DATE CREATED AUTHOR AUTHOR'S ORGANIZ ATION 07/09/2025 [facility] DATE CREATED AUTHOR AUTHOR'S ORGANIZ ATION 08/03/2025 [facility] DATE CREATED AUTHOR AUTHOR'S ORGANIZ ATION 09/07/2025 [facility] <item> Privacy Markings (unrecogniz ed section and content) Section Author: An Serrano PROHIBITION ON REDISCLOSURE OF CONFIDENTIAL INFORMATION This notice accompanies a disclosure of information concerning a client made to you with the consent of such client. Care Teams (unrecognized sec tion and content) Bankruptcy Assistant Relationship Specialty Start Date End Date Rosalina Muñiz MD [address] [place] [address] PCP - General Internal Medicine 08/23/21 Bankruptcy Assistant Relationship Specialty Start Date End Date Rosalina Muñiz MD [address] [place] [address] PCP - General Internal Medicine 08/23/21 Bankruptcy Assistant Relationship Specialty Start Date End Date Rosalina Muñiz MD [address] [address] PCP - General Internal Medicine 08/23/21 Bankruptcy Assistant Relationship Specialty Start Date End Date Rosalina Muñiz MD [address] [place] [id number] PCP - General Internal Medicine 08/23/21 Bankruptcy Assistant Relationship Specialty Start Date End Date Zunilda, Rosalina, MD [address] [address] PCP - General Internal Medicine 08/23/21 Ganesh Boggs MD [address] [address] PCP - YURIDIA Attributed Provider - [employer] 12/28/21 10/29/50 Bankruptcy Assistant Relationship Specialty Start Date End Date Rosalina Muñiz MD [address] [address] PCP - General Internal Medicine 08/23/21 Ganesh Boggs MD [address] [place], [place] [id number] PCP - YURIDIA Attributed Provider - [employer] 12/28/21 10/29/50 Bankruptcy Assistant Relationship Specialty Start Date End Date Rosalina Muñiz MD [facility] [address] [address] PCP - General Internal Medicine 08/23/21 Ganesh Boggs MD [address] [place] [address] PCP - YURIDIA Attributed Provider - [employer] 12/28/21 10/29/50 Bankruptcy Assistant Relationship Specialty Start Date End Date Rosalina Muñiz MD [address] [address] PCP - General Internal Medicine 08/23/21 Ganesh Boggs MD [facility] [address] [address] PCP - YURIDIA Attributed Provider - [employer] 12/28/21 10/29/50 Bankruptcy Assistant Relationship Specialty Start Date End Date Zunilda, Rosalina, MD [address] [place] [id number] PCP - General Internal Medicine 08/23/21 Ganesh Boggs MD [address] [address] PCP - YURIDIA Attributed Provider - [employer] 10/30/21 10/29/50 Bankruptcy Assistant Relationship Specialty Start Date End Date Rosalina Muñiz MD [address] [address] PCP - General Internal Medicine 08/23/21 Ganesh Boggs MD [address] [place] [id number] PCP - YURIDIA Attributed Provider - [employer] 10/30/21 10/29/50 Bankruptcy Assistant Relationship Specialty Start Date End Date Rosalina Muñiz MD [facility] [place] [id number] PCP - General Internal Medicine 08/23/21 Rosalina Muñiz MD [address] [place] [id number] PCP - YURIDIA Attributed Provider - [employer] 10/30/21 10/29/50 Bankruptcy Assistant Relationship Specialty Start Date End Date Rosalina Muñiz MD [facility] [place] [id number] PCP - General Internal Medicine 08/23/21 Rosalina Muñiz MD [facility] [place] [phone] PCP - YURIDIA Attributed Provider - [employer] 10/30/21 10/29/50 Bankruptcy Assistant Relationship Specialty Start Date End Date Rosalina Muñiz MD [address] [address] PCP - General Internal Medicine 08/23/21 Rosalina Muñiz MD [address] [address] PCP - YURIDIA Attributed Provider - [employer] 10/30/21 10/29/50 Bankruptcy Assistant Relationship Specialty Start Date End Date Mandy Plascencia PA-C [address] [facility] [place] [address] PCP - General Internal Medicine 09/19/23 Bankruptcy Assistant Relationship Specialty Start Date End Date Mandy Plascencia PA-C [address] [facility] [place] [address] PCP - General Internal Medicine 09/19/23 Bankruptcy Assistant Relationship Specialty Start Date End Date Mandy Plascencia PA-C [address] [facility] [place] [address] PCP - General Internal Medicine 09/19/23 Team Status: Inactive Member Role/Relationship Status Dates Bird BOURNE PA-C Attending Provider Active Start: June 09, 2025 End: June 09, 2025 Team Status: Active Member Role/Relationship Status Dates No Primary Care Physician Primary Care Provider Active Team Status: Inactive Member Role/Relationship Status Dates Bird BOURNE PA-C Attending Provider Active Start: June 09, 2025 End: June 09, 2025 Team Status: Active Member Role/Relationship Status Dates Dr. Gonzalez Barreto MD Emergency Provider Active Sta rt: June 13, 2025 No Primary Care Physician Primary Care Provider Active Start: June 13, 2025 Dr. Kerry Paniagua MD Attending Provider Active Start: June 13, 2025 Dr. Kerry Paniagua MD Referring Provider Active Start: June 13, 2025 Team Status: Inactive Member Role/Relationship Status Dates Dr. Gonzalez Barreto MD Emergency Provider Active Sta rt: June 13, 2025 End: June 13, 2025 No Primary Care Physician Primary Care Provider Active Start: June 13, 2025 End: June 13, 2025 Dr. Kerry Paniagua MD Attending Provider Active Start: June 13, 2025 End: June 13, 2025 Dr. Kerry Paniagua MD Referring Provider Active Start: June 13, 2025 End: June 13, 2025 Team Status: Inactive Member Role/Relationship Status Dates No Primary Care Physician Primary Care Provider Active Start: June 16, 2025 End: June 16, 2025 Dr. Kerry Paniagua MD Attending Provider Active Start: June 16, 2025 End: June 16, 2025 Dr. Kerry Paniagua MD Referring Provider Active Start: June 16, 2025 End: June 16, 2025 Team Status: Inactive Member Role/Relationship Status Dates No Primary Care Physician Primary Care Provider Active Start: July 01, 2025 End: July 03, 2025 Dr. Keyla Kay MD Admit Provider Active S tart: July 01, 2025 End: July 03, 2025 Dr. Keyla Kay MD Attending Provider Active Start: July 01, 2025 End: July 03, 2025 Dr. Keyla Kay MD Referring Provider Active Start: July 01, 2025 End: July 03, 2025 Source Comments (unrecognize d section and content) In the event this informatio n is protected by the Federal Confidentiality of Alcohol and Drug Abuse Patient Records regulations: The Federal rules restrict any use of the information to criminally investigate or prosecute any alcohol or drug abuse patient.[facility] the event this information is protected by the Federal Confidentiality of Alcohol and Drug Abuse Patient Records regulations: The Federal rules restrict any use of the information to criminally investigate or prosecute any alcohol or drug abuse patient.[facility] the event this information is protected by the Federal Confidentiality of Alcohol and Drug Abuse Patient Records regulations: The Federal rules restrict any use of the information to criminally investigate or prosecute any alcohol or drug abuse patient.[facility] the event this information is protected by the Federal Confidentiality of Alcohol and Drug Abuse Patient Records regulations: The Federal rules restrict any use of the information to criminally investigate or prosecute any alcohol or drug abuse patient.[facility] the event this information is protected by the Federal Confidentiality of Alcohol and Drug Abuse Patient Records regulations: The Federal rules restrict any use of the information to criminally investigate or prosecute any alcohol or drug abuse patient.[facility] the event this information is protected by the Federal Confidentiality of Alcohol and Drug Abuse Patient Records regulations: The Federal rules restrict any use of the information to criminally investigate or prosecute any alcohol or drug abuse patient.[facility] the event this information is protected by the Federal Confidentiality of Alcohol and Drug Abuse Patient Records regulations: The Federal rules restrict any use of the information to criminally investigate or prosecute any alcohol or drug abuse patient.[facility] Hospital[facility] the event this information is protected by the Federal Confidentiality of Alcohol and Drug Abuse Patient Records regulations: The Federal rules restrict any use of the information to criminally investigate or prosecute any alcohol or drug abuse patient.[facility] the event this information is protected by the Federal Confidentiality of Alcohol and Drug Abuse Patient Records regulations: The Federal rules restrict any use of the information to criminally investigate or prosecute any alcohol or drug abuse patient.[facility] HospitalIn the event this information is protected by the Federal Confidentiality of Alcohol and Drug Abuse Patient Records regulations: The Federal rules restrict any use of the information to criminally investigate or prosecute any alcohol or drug abuse patient.[facility] HospitalIn the event this information is protected by the Federal Confidentiality of Alcohol and Drug Abuse Patient Records regulations: The Federal rules restrict any use of the information to criminally investigate or prosecute any alcohol or drug abuse patient.[facility] HospitalIn the event this information is protected by the Federal Confidentiality of Alcohol and Drug Abuse Patient Records regulations: The Federal rules restrict any use of the information to criminally investigate or prosecute any alcohol or drug abuse patient.[facility] HospitalIn the event this information is protected by the Federal Confidentiality of Alcohol and Drug Abuse Patient Records regulations: The Federal rules restrict any use of the information to criminally investigate or prosecute any alcohol or drug abuse patient.[facility] HospitalIn the event this information is protected by the Federal Confidentiality of Alcohol and Drug Abuse Patient Records regulations: The Federal rules restrict any use of the information to criminally investigate or prosecute any alcohol or drug abuse patient.[facility] HospitalIn the event this information is protected by the Federal Confidentiality of Alcohol and Drug Abuse Patient Records regulations: The Federal rules restrict any use of the information to criminally investigate or prosecute any alcohol or drug abuse patient.[facility] HospitalIn the event this information is protected by the Federal Confidentiality of Alcohol and Drug Abuse Patient Records regulations: The Federal rules restrict any use of the information to criminally investigate or prosecute any alcohol or drug abuse patient.[facility] HospitalIn the event this information is protected by the Federal Confidentiality of Alcohol and Drug Abuse Patient Records regulations: The Federal rules restrict any use of the information to criminally investigate or prosecute any alcohol or drug abuse patient.[facility] HospitalIn the event this information is protected by the Federal Confidentiality of Alcohol and Drug Abuse Patient Records regulations: The Federal rules restrict any use of the information to criminally investigate or prosecute any alcohol or drug abuse patient.[facility] HospitalIn the event this information is protected by the Federal Confidentiality of Alcohol and Drug Abuse Patient Records regulations: The Federal rules restrict any use of the information to criminally investigate or prosecute any alcohol or drug abuse patient.[facility] HospitalIn the event this information is protected by the Federal Confidentiality of Alcohol and Drug Abuse Patient Records regulations: The Federal rules restrict any use of the information to criminally investigate or prosecute any alcohol or drug abuse patient.[facility] HospitalIn the event this information is protected by the Federal Confidentiality of Alcohol and Drug Abuse Patient Records regulations: The Federal rules restrict any use of the information to criminally investigate or prosecute any alcohol or drug abuse patient.[facility] HospitalIn the event this information is protected by the Federal Confidentiality of Alcohol and Drug Abuse Patient Records regulations: The Federal rules restrict any use of the information to criminally investigate or prosecute any alcohol or drug abuse patient.[facility] HospitalIn the event this information is protected by the Federal Confidentiality of Alcohol and Drug Abuse Patient Records regulations: The Federal rules restrict any use of the information to criminally investigate or prosecute any alcohol or drug abuse patient.[facility] HospitalIn the event this information is protected by the Federal Confidentiality of Alcohol and Drug Abuse Patient Records regulations: The Federal rules restrict any use of the information to criminally investigate or prosecute any alcohol or drug abuse patient.[facility] HospitalIn the event this information is protected by the Federal Confidentiality of Alcohol and Drug Abuse Patient Records regulations: The Federal rules restrict any use of the information to criminally investigate or prosecute any alcohol or drug abuse patient.[facility] HospitalIn the event this information is protected by the Federal Confidentiality of Alcohol and Drug Abuse Patient Records regulations: The Federal rules restrict any use of the information to criminally investigate or prosecute any alcohol or drug abuse patient.[facility] HospitalIn the event this information is protected by the Federal Confidentiality of Alcohol and Drug Abuse Patient Records regulations: The Federal rules restrict any use of the information to criminally investigate or prosecute any alcohol or drug abuse patient.[facility] HospitalIn the event this information is protected by the Federal Confidentiality of Alcohol and Drug Abuse Patient Records regulations: The Federal rules restrict any use of the information to criminally investigate or prosecute any alcohol or drug abuse patient.[facility] HospitalIn the event this information is protected by the Federal Confidentiality of Alcohol and Drug Abuse Patient Records regulations: The Federal rules restrict any use of the information to criminally investigate or prosecute any alcohol or drug abuse patient.[facility] HospitalIn the event this information is protected by the Federal Confidentiality of Alcohol and Drug Abuse Patient Records regulations: The Federal rules restrict any use of the information to criminally investigate or prosecute any alcohol or drug abuse patient.[facility] HospitalIn the event this information is protected by the Federal Confidentiality of Alcohol and Drug Abuse Patient Records regulations: The Federal rules restrict any use of the information to criminally investigate or prosecute any alcohol or drug abuse patient.[facility] HospitalIn the event this information is protected by the Federal Confidentiality of Alcohol and Drug Abuse Patient Records regulations: The Federal rules restrict any use of the information to criminally investigate or prosecute any alcohol or drug abuse patient.[facility] HospitalIn the event this information is protected by the Federal Confidentiality of Alcohol and Drug Abuse Patient Records regulations: The Federal rules restrict any use of the information to criminally investigate or prosecute any alcohol or drug abuse patient.[facility] HospitalIn the event this information is protected by the Federal Confidentiality of Alcohol and Drug Abuse Patient Records regulations: The Federal rules restrict any use of the information to criminally investigate or prosecute any alcohol or drug abuse patient.[facility] HospitalIn the event this information is protected by the Federal Confidentiality of Alcohol and Drug Abuse Patient Records regulations: The Federal rules restrict any use of the information to criminally investigate or prosecute any alcohol or drug abuse patient.[facility] HospitalIn the event this information is protected by the Federal Confidentiality of Alcohol and Drug Abuse Patient Records regulations: The Federal rules restrict any use of the information to criminally investigate or prosecute any alcohol or drug abuse patient.[facility] HospitalIn the event this information is protected by the Federal Confidentiality of Alcohol and Drug Abuse Patient Records regulations: The Federal rules restrict any use of the information to criminally investigate or prosecute any alcohol or drug abuse patient.[facility] Goals (unrecognized section and content) Goals may be documented in a n alternate sectionGoals may be documented in an alternate sectionGoals may be documented in an alternate sectionGoals may be documented in an alternate section FOR RECORDS PERTAINING TO PATIENTS WHO ARE OR HAVE BEEN ENROLLED IN A CHEMICAL DEPENDENCY/SUBSTANCEABUSE PROGRAM, SOME INFORMATION MAY BE OMITTED. This clinical summary was aggregated from multiple sources. Caution should be exercised in using it in the provision of clinical care. This summary normalizes information from multiple sources, and as a consequence, information in this document may materially change the coding, format and clinical context of patient data. In addition, data may be omitted in some cases. CLINICAL DECISIONS SHOULD BE BASED ON THE PRIMARY CLINICAL RECORDS. [facility] provides no warranty or guarantee of the accuracy or completeness of information in this document.
[2025-10-14 21:40] LABS: Anion Gap 13 (5-15); BUN 12 mg/dL (4-19); BUN/Creat Ratio 14.9 RATIO (10-20); Calcium,Total 9.9 mg/dL (7.6-11.0); Carbon Dioxide 22.9 mmol/L (21.0-32.0); Chloride 100 mmol/L (98-108); Estimated Creatinine Clearance 104.45 ml/min (50-250); Glucose 82 mg/dL (70-99); Potassium 4.2 mmol/L (3.3-5.1)
[2025-10-14 21:59] LABS: Pro- Brain NATRIURETIC PEPTIDE < 36 pg/mL (<=450); Troponin T High Sensitivity < 6 ng/L (<=14)
[2025-10-15 00:20] VITALS: BP 141/98; PULSE 66; RESP 17; O2SAT 98
[2025-10-15 00:21] VITALS: BP 141/98; PULSE 66; RESP 17; TEMP 36.9; O2SAT 98
--- NOTE | 2025-10-15 00:35 | PCA ---
Charted EKG Read was done on 10/15/25 instead of 10/14/25, re-charted and corrected error.
== END 2025-10-15 00:21 | disposition home or self-care (01) ==
PROVIDERS: Emergency Provider Emergency Medicine; Visit Provider Emergency Medicine
DX: R07.81 Pleurodynia (principal); I27.82 Chronic pulmonary embolism; R10.A1 Flank pain, right side
CPT/HCPCS: 71275; 80048; 83880; 84484; 85025; 93005; 96372; 99285; Q9967; A4216